=== PATIENT | female | born 1985 | race Caucasian/White ===

== ENCOUNTER 2023-06-03 09:07 | Emergency (ER) | payer OTHER, SELFPAY ==
[2023-06-03 09:10] VITALS: BP 109/71; PULSE 84; RESP 16; TEMP 37.9; O2SAT 100
--- NOTE | 2023-06-03 09:46 | ED_ITS ---
HPI - General Adult General Chief complaint: Chest Pain Stated complaint: chest pain/abdominal pain Time Seen by Provider: 06/03/23 09:14 History of Present Illness HPI narrative: This 38-year-old female comes in reporting some chest discomfort that occurred upon awakening this morning. She states that she is about 5 weeks . She called into the nurse line and was told to come into the ER because she might be having a heart attack. She is very anxious upon hearing this. She states that she has had a miscarriage in the past and is concerned about her . She arrives with normal vital signs but does have borderline fever with a temperature 100.3? F. she does not report any symptoms suspicious for infection. She states that she is developing some mild abdominal pain but does not have cramping or signs of miscarriage. She states that she feels some lightheadedness but did not have any nausea, vomiting, shortness of breath, or diaphoresis. She does not report any exercise intolerance. She does not have any cardiac risk factors except for her father has some kind of heart condition. Related Data Home Medications Medication Instructions Recorded Confirmed vit no.95-ferrous 1 tab PO DAILY 06/03/23 06/03/23 fumarate 28 mg-folic acid 800 mcg tablet ( Multivitamins) Allergies Allergy/AdvReac Type Severity Reaction Status Date / Time amoxicillin Allergy Severe stop Verified 06/03/23 09:15 breathing contrast dye Allergy Severe stop Uncoded 06/03/23 09:15 breathing Review of Systems Status of ROS: Reports: 10 or more systems reviewed and unremarkable except as noted in History and below Narrative: Constitutional: No fevers, no weight gain or loss. Eyes: No discharge. No vision changes. HENT: No congestion, no sore throat, no ear pain. Cardiovascular: No palpitations. Respiratory: No shortness of breath, no wheezes, no cough. Gastrointestinal: No abdominal pain, no vomiting, no diarrhea. Genitourinary: No dysuria, no hematuria. Musculoskeletal: Normal range of motion. Skin: No rashes, no pruritis. Neurological: No dizziness, weakness, sensory change, speech change. Endo/Heme/Allergies: No bruising or bleeding. No polydipsia. Pysch: no suicidality, no insomnia. She has lots of anxiety regarding her symptoms. All other systems reviewed and are negative. PFSH PFSH Social History Smoking Status: Never smoker How often do you have a drink containing alcohol: never How often do you have six or more drinks on one occasion: Never AUDIT-C Alcohol total score: 0 Non-prescribed substance use: denies use Exam Narrative: Exam Narrative: Constitutional: Well-developed, well-nourished, no acute distress. HEENT: Normocephalic, atraumatic. Neck: Normal range of motion. Nontender. Supple. Heart: Regular. No murmurs. Normal rate. Intact distal pulses. Lungs: Clear to auscultation. No chest discomfort. No wheezes, rhonchi, or rales. Abdomen: Normal bowel sounds. Mild diffuse tenderness in the lower abdomen. No rebound tenderness. Genitalia: Deferred. Back: No midline tenderness. Normal range of motion. Extremities: Normal range of motion. No injury. Skin: Intact. No rash. Warm. No erythema or pallor. Neurologic: No altered sensation. No weakness. Alert and oriented. Psychiatric: No suicidality. No depression. No insomnia. Nursing notes and vitals signs are reviewed. Const: Vital Signs, click to edit/add: Vital Signs - 24 hr 06/03/23 09:10 06/03/23 11:19 Temperature 100.3 F H Pulse Rate [Pulse Oximeter] 84 72 Respiratory Rate 16 16 Blood Pressure [Ri ght Upper Arm] 109/71 102/58 L Pulse Oximetry 100 98 Oxygen Delivery Me thod Room Air Room Air Course Vital Signs Vital signs: Initial Vital Signs Temperature 100.3 F H 06/03/23 09:10 Temperature Source Temporal Artery Scan 06/03/23 09:10 Pulse Rate 84 06/03/23 09:10 Respiratory Rate 16 06/03/23 09:10 Blood Pressure 109/71 06/03/23 09:10 Blood Pressure Mean 83 06/03/23 09:10 Blood Pressure Position Sitting 06/03/23 09:10 Pulse Oximetry 100 06/03/23 09:10 Oxygen Delivery Method Room Air 06/03/23 09:10 Vital Signs Temperature 100.3 F H 06/03/23 09:10 Pulse Rate 84 06/03/23 09:10 Respiratory Rate 16 06/03/23 09:10 Blood Pressure 109/71 06/03/23 09:10 Pulse Oximetry 100 06/03/23 09:10 Oxygen Delivery Method Room Air 06/03/23 09:10 Temperature 100.3 F H 06/03/23 09:10 Pulse Rate 72 06/03/23 11:19 Respiratory Rate 16 06/03/23 11:19 Blood Pressure 102/58 L 06/03/23 11:19 Pulse Oximetry 98 06/03/23 11:19 Oxygen Delivery Method Room Air 06/03/23 11:19 Medical Decision Making MDM Narrative Medical decision making narrative: This patient comes in with lots of anxiety regarding some chest discomfort and fear that she may be having something wrong with the that is at about 5 weeks gestation. She reports lots of anxiety because she does not have any children and did have a prior that ended in miscarriage. She arrives here with normal vital signs but does show a temperature at 100.3? F. She is not describing any symptoms of infection. Her white count returns normal today and urinalysis shows no sign of infection. EKG and troponin returned with reassuring findings. I also used bedside ultrasound to look at her uterus and her heart. Her is early in gestation and a transabdominal view of her uterus does not show any findings as expected. Cardiac views are all reassuring. Her beta hCG quantitative value he is proper for her current gestational age at 5561. This is good news to the patient. She has a follow-up appointment with an OB physician in 5 days and will have ultrasound done at that time. Lab Data Labs: Lab Results 06/03/23 06/03/23 06/03/23 Range/Units 09:45 09:57 10:35 WBC 8.42 (4.50-11.00) K/uL RBC 4.80 (4.00-5.20) m/uL Hgb 14.4 (12.0-16.0) gm/dL Hct 43.3 (33.0-51.0) % MCV 90 (80-100) fL MCH 30 (26-34) pg MCHC 33 (32-36) gm/dL RDW Coeff of Paresh 12.4 (11.5-15.5) % Plt Count 220 (140-440) K/uL Neut % (Auto) 75.6 H (42.0-72.0) % Lymph % (Auto) 14.7 L (20-44) % Dukes % (Auto) 8.9 (0.0-11.0) % Eos % (Auto) 0.4 (0.0-7.0) % Baso % (Auto) 0.2 (0.0-3.0) % Neut # (Auto) 6.40 (1.7-7.0) K/uL Lymph # (Auto) 1.20 (0.90-2.90) K/uL Dukes # (Auto) 0.70 (0.00-0.90) K/UL Eos # (Auto) 0.03 (0.00-0.50) K/uL Baso # (Auto) 0.02 (0.00-0.30) K/uL Abs Immat Gran (auto) 0.02 (0.00-0.30) K/uL Imm/Tot Granulo (auto) 0.2 % HCG, Quant 5561.20 mIU/mL Urine Color Dark yellow (Yellow) Urine Appearance Slightly Cloudy A (Clear) Urine pH 6.0 (5.0-8.5) Ur Specific [place] >= 1.030 (1.000-1.030) Urine Protein Negative (Negative) Urine Glucose (UA) Negative (Negative) Urine Ketones Negative (Negative) Urine Blood Negative (Negative) Urine Nitrite Negative (Negative) Urine Bilirubin Negative (Negative) Urine Urobilinogen 0.2 (0.2-1.0) Ur Leukocyte Esterase Negative (Negative) Urine RBC 0-2 (0-2) Urine WBC 0-2 (0-5) Ur Squamous Epith Cells Few (None-Few) Amorphous Sediment Few A (None) Urine Bacteria Moderate A (None) Urine Mucus Moderate A (None) POC Troponin I 0.00 L (0.01-0.04) ng/ml ECG Data Attestation: I personally reviewed and interpreted this ECG as follows: Interpretation: Normal sinus rhythm. Rate is 76 beats per minute. There are no ST or T-wave abnormalities. Discharge Plan Discharge Clinical Impression: Atypical chest pain Patient Disposition: Home, Self-Care Condition: Stable Additional Instructions: Continue current plans. Follow up with MD as scheduled. Return if worsening. Prescriptions: No Action PNV cmb#95-ferrous fumarate-FA [ Multivitamins] 28 mg iron- 800 mcg tablet 1 tab PO DAILY Follow Up/Referrals: Provider,Not a Local [Primary Care Provider] - Stand Alone [facility] Inst[facility] Procedures Ultrasound Cardiac exam #1: Anatomical areas examined: parasternal long and parasternal short Indications: chest pain Exam type: limited transthoracic echocardiogram Impression: negative exam
[2023-06-03 10:10] LABS: Basophils Absolute Auto 0.02 K/uL (0.00-0.30); Basophils Percent Auto 0.2 % (0.0-3.0); Eosinophils Absolute Auto 0.03 K/uL (0.00-0.50); Eosinophils Percent Auto 0.4 % (0.0-7.0); Hematocrit 43.3 % (33.0-51.0); Hemoglobin* 14.4 gm/dL (12.0-16.0); Immature Granulocytes Abs Auto 0.02 K/uL (0.00-0.30); Immature Granulocytes Pct Auto 0.2 %; Lymphocytes Percent Auto 14.7 % (20-44); Mean Corpuscular HGB Conc 33 gm/dL (32-36); Mean Corpuscular Hemoglobin 30 pg (26-34); Mean Corpuscular Volume 90 fL (80-100); Monocytes Percent Auto 8.9 % (0.0-11.0); Neutrophils Percent Auto 75.6 % (42.0-72.0); Platelet Count* 220 K/uL (140-440); RDW Coefficient of Variation % 12.4 % (11.5-15.5); White Blood Count* 8.42 K/uL (4.50-11.00)
[2023-06-03 10:13] LABS: Slide Review Reflex No
[2023-06-03 10:42] LABS: Appearance Urine Slightly Cloudy (Clear); Bilirubin Urine Negative (Negative); Blood Urine Negative (Negative); Color Urine Dark yellow (Yellow); Glucose Urine Negative (Negative); Ketones Urine Negative (Negative); Leukocyte Esterase Urine Negative (Negative); Nitrite Urine Negative (Negative); Protein Urine Negative (Negative); Specific Gravity Urine >= 1.030 (1.000-1.030); Urobilinogen Urine 0.2 (0.2-1.0)
[2023-06-03 10:54] LABS: Amorphous Sediment Urine Few; Bacteria Urine Moderate; Mucus Urine Moderate; RBC Urine 0-2 (0-2); Squamous Epithelial Cell Urine Few (None-Few); WBC Urine 0-2 (0-5)
[2023-06-03 11:19] VITALS: BP 102/58; PULSE 72; RESP 16; O2SAT 98
== END 2023-06-03 11:53 | disposition home or self-care (01) ==
PROVIDERS: Emergency Provider Emergency Medicine Emergency Medical Services
DX: R07.89 Other chest pain (principal)
CPT/HCPCS: 36415; 76604; 76705; 81001; 84484; 84702; 85025; 87086; 93005; 93308; 99284; 99285

== ENCOUNTER 2023-09-07 18:25 | Emergency (ER) | payer OTHER, SELFPAY ==
[2023-09-07 18:37] VITALS: BP 103/66; PULSE 76; RESP 16; TEMP 36.4; O2SAT 98
--- NOTE | 2023-09-07 19:37 | ED_ITS ---
HPI - General Adult General Chief complaint: Nausea/Vomiting Stated complaint: vomiting, 18 wks preg Time Seen by Provider: 09/07/23 19:08 Source: patient Mode of arrival: ambulatory Limitations: no limitations History of Present Illness HPI narrative: 38-year-old female 2 para 0 loss of previous due to trisomy at 8 weeks gestation presents to the emergency department for evaluation of persistent nausea and vomiting in as well as a ?taste of glue in her mouth? patient states that she has been persistently vomiting and then ?has not been able to eat anything? but then tells me that she held down a bowl of cereal without difficulty this morning and had a tortilla with 3 fried beans from [employer] around lunchtime. As she was eating the tortilla, she noticed a scratchy irritated sensation around her tonsil and wondered if there was something dangerous in the food. She tells me that she has lost 7 lb in I last week. I do not have any records to confirm this as she sees a provider his father through a different health system for her OB care. The rationale for coming to our ED instead is unclear today. There is no trauma or injury, she is not running any fever. She reports that she is holding down water without difficulty and is urinating at least 4 times a day. He has read the baby's not growing because she is not gaining weight. She was recently started on fluox etine for anxiety by her Ob provider in the last couple of weeks. She also has been prescribed multiple antiemetics including promethazine, Zofran, Reglan. She had been feeling constipated and has been prescribed MiraLax and Colace which she has been using. She had a large bowel movement this morning and actually felt quite a bit better afterwards but then felt nauseated again after eating a tortilla and we fried beans. There is no bloody stool, the vomiting sounds non bilious and like stomach acid. She has been taking famotidine for the past month or 2 due to the reflux and does not feel like this is working sufficiently. She states that she does not consistently feel the baby move but she is only 18 weeks gestation and this is not terribly surprising. No vaginal bleeding, no trauma or injury, no leakage of fluid. No fevers, dysuria or other red flags. Past medical history notable for amoxicillin allergy, current medications are Prozac, famotidine, Zofran, promethazine, Reglan. Ob provider through different health system. Records unavailable. Denies any other long-term health problems. ROS notable for the generalized and GI symptoms as described above. Otherwise denies times 12 systems today. Related Data Home Medications ?Medication ?Instructions ?Recorded ?Confirmed vit no.95-ferrous 1 tab PO DAILY 06/03/23 09/07/23 fumarate 28 mg-folic acid 800 mcg tablet ( Multivitamins) aspirin 81 mg chewable tablet 81 mg PO DAILY 09/07/23 09/07/23 (Aspirin Childrens) docusate sodium 100 mg capsule 100 mg PO QHS 09/07/23 09/07/23 (Colace) famotidine 10 mg tablet 10 mg PO BID 09/07/23 09/07/23 famotidine 20 mg tablet 20 mg PO BID 09/07/23 09/07/23 fluoxetine 20 mg capsule 20 mg PO DAILY 09/07/23 09/07/23 glycerin (adult) 1 supp HI DAILY PRN constipation 09/07/23 09/07/23 metoclopramide HCl 10 mg tablet 10 mg PO QID 09/07/23 09/07/23 ondansetron 4 mg disintegrating 4 mg PO Q8H PRN 09/07/23 09/07/23 tablet polyethylene glycol 3350 17 17 g PO DAILY 09/07/23 09/07/23 gram/dose oral powder (Miralax) promethazine 12.5 mg tablet 12.5 - 25 mg PO Q6H PRN nausea 09/07/23 09/07/23 Allergies Allergy/AdvReac Type Severity Reaction Status Date / Time amoxicillin Allergy Severe stop Verified 06/03/23 09:15 breathing contrast dye Allergy Severe stop Uncoded 06/03/23 09:15 breathing PFSH PFSH Social History Smoking Status: Never smoker How often do you have a drink containing alcohol: never How often do you have six or more drinks on one occasion: Never AUDIT-C Alcohol total score: 0 Non-prescribed substance use: denies use Exam Const: Vital Signs, click to edit/add: Vital Signs - 24 hr 09/07/23 18:37 09/07/23 21:36 Temperature 97.6 F Pulse Rate [Pulse Oximeter] 76 66 Respiratory Rate 16 16 Blood Pressure [Ri ght Upper Arm] 103/66 102/58 L Pulse Oximetry 98 100 Oxygen Delivery Me thod Room Air Room Air Documenting provider has reviewed patient's vital signs: yes Common normals: no apparent distress General appearance: cooperative, comfortable and well kempt HENMT: Common normals: normocephalic Head and scalp: normocephalic Other: Mild cobblestoning pattern the posterior pharynx but no redness or swelling. No signs of laceration or abrasion. Eye: General eye: normal appearance of both eyes Neck & C-Spine: General: normal visual inspection Resp: Common normals: normal respiratory effort, no use of accessory muscles and clear to auscultation bilaterally Effort & inspection: able to speak in complete sentences Auscultation: clear to auscultation bilaterally Cardio: Common normals: regular rate, regular rhythm, S1 normal heart sound, S2 normal heart sound and no murmurs Rate: regular rate Rhythm: regular rhythm Heart sounds: S1 normal and S2 normal GI: Common normals: Normal to inspection, nondistended, normoactive bowel sounds present, soft to palpation, non-tender, no hepatosplenomegaly and no masses Palpation: soft and no hepatosplenomegaly Other: Fundal height consistent with about a 20 week gestation. Extremity: Common normals: normal capillary refill and no pedal edema Psych: Appearance: well kempt Activity/motor behavior: appropriate eye contact Insight: insight good Judgement: judgment good Skin: Common normals: no rashes or lesions noted General skin exam: no rashes or lesions noted Course Course ED Course: Discussed findings with patient. It sounds like she is he able to hold down some liquids and food, just not enough to really sustain herself and the well. There was no hypotension, tachycardia or syncopal type symptoms. Reports that her labs have been normal through this . I recommend a urinalysis to look for degree of ketosis. Update: Does have 4+ ketones and high specific gravity. Will give 1 L of lactated Ringer's, 4 of Zofran and 20 of omeprazole, then re-evaluate. Reevaluation(s) Reevaluation #1: I was tied up with another patient when patient completed her fluids. Nursing team reporting that she was feeling somewhat better and had been tolerating liquids here in the ED with no difficulty she has not had any vomiting here for us. She will be discharged with plan to continue current medications and close follow-up with primary care OB team and keeping her scheduled appointment for the week after next. Vital Signs Vital signs: Initial Vital Signs Temperature 97.6 F 09/07/23 18:37 Temperature Source Temporal Artery Scan 09/07/23 18:37 Pulse Rate 76 09/07/23 18:37 Respiratory Rate 16 09/07/23 18:37 Blood Pressure 103/66 09/07/23 18:37 Blood Pressure Mean 78 09/07/23 18:37 Blood Pressure Position Sitting 09/07/23 18:37 Pulse Oximetry 98 09/07/23 18:37 Oxygen Delivery Method Room Air 09/07/23 18:37 Vital Signs Temperature 97.6 F 09/07/23 18:37 Pulse Rate 76 09/07/23 18:37 Respiratory Rate 16 09/07/23 18:37 Blood Pressure 103/66 09/07/23 18:37 Pulse Oximetry 98 09/07/23 18:37 Oxygen Delivery Method Room Air 09/07/23 18:37 Temperature 97.6 F 09/07/23 18:37 Pulse Rate 66 09/07/23 21:36 Respiratory Rate 16 09/07/23 21:36 Blood Pressure 102/58 L 09/07/23 21:36 Pulse Oximetry 100 09/07/23 21:36 Oxygen Delivery Method Room Air 09/07/23 21:36 Medications Administered Medications: Discontinued Medications Generic Name Dose Route Start Last Admin Trade Name Freq PRN Reason Stop Dose Admin Lactated Ringer's 1,000 mls @ 1,000 mls/hr 09/07/23 20:13 09/07/23 20:32 Lactated Ringers 1000 Ml IV 09/07/23 21:12 1,000 mls/hr .Q1H ONE Administration Omeprazole 20 mg 09/07/23 20:13 09/07/23 20:32 Omeprazole [address] PO 09/07/23 20:14 20 mg ONCE ONE Administration Ondansetron HCl 4 mg 09/07/23 20:13 09/07/23 20:32 Ondansetron 2 Mg/Ml Inj IVP 09/07/23 20:14 4 mg ONCE ONE Administration Medical Decision Making Lab Data Lab results reviewed: Yes I reviewed the patient's lab results Lab results narrative: High specific gravity and ketones present, will give IV fluids. Labs: Lab Results 09/07/23 Range/Units 19:30 Urine Color Yellow (Yellow) Urine Appearance Slightly Cloudy A (Clear) Urine pH 5.5 (5.0-8.5) Ur Specific [place] >= 1.030 (1.000-1.030) Urine Protein Negative (Negative) Urine Glucose (UA) Negative (Negative) Urine Ketones 4+ A (Negative) Urine Blood Negative (Negative) Urine Nitrite Negative (Negative) Urine Bilirubin 1+ A (Negative) Urine Urobilinogen 0.2 (0.2-1.0) Ur Leukocyte Esterase Negative (Negative) Urine RBC 0-2 (0-2) Urine WBC 0-2 (0-5) Ur Squamous Epith Cells Few (None-Few) Calcium Oxalate Crystal Few A (None) Urine Bacteria Few A (None) Discharge Plan Discharge Clinical Impression: Vomiting affecting , Urine ketones Patient Disposition: Home w/ Parent or Adult Condition: Improved Instructions: Nausea and Vomiting in (ED) Additional Instructions: As we discussed, unfortunately, some pregnancies really do have this degree of persistent nausea and vomiting. Most of the time, the baby grows well. I am hoping that your symptoms do improve as the continues. It is not unusual that patient start feeling quite a bit better by the 22 week jossue. Your provider has chosen an excellent and very safe combination medications for you. Management of the constipation is imperative. Continue the MiraLax and Colace. As we discussed, many find that the MiraLax does dissolve better in warm beverages, you may try this. Using it in your morning coffee may be most effective. Continue on the Colace as well, do not abruptly stop either of them but titrate down to half dose or maybe the MiraLax every other day if her stools become very loose. The the Prozac sounds like a good choice for you. I am hoping that better management of your anxiety is going to 1 healthy balanced things out as well. This may worsen your reflux and constipation so stay on the medications that are prescribed. At this time, the be seen famotidine seems like the best choice for your reflux and is definitely the safest long-term. I would like for you to continue taking this as prescribed. If her reflux symptoms are not improving within another week, discussed switching to omeprazole with your provider. Keep your scheduled appointment in about a week and a half for your ultrasound and no provider follow-up. We gave you fluids today hoping that this would help you feel better and allow you to catch up on nutrition and fluids and ultimately help you get over this tough spell. Remember that you should be in close communication with your Ob provider regarding long-term follow-up of these types of things. Emergency department should be used if you are having severe dizziness, are unable to hold down any liquids whatsoever for over 24 hours, have high fevers, brisk vaginal bleeding or other worrisome findings. Activity Level: Activity as Tolerated Discharge Diet: Regular Prescriptions: No Action famotidine 10 mg tablet 10 mg PO BID promethazine 12.5 mg tablet 12.5 - 25 mg PO Q6H PRN (Reason: nausea) famotidine 20 mg tablet 20 mg PO BID ondansetron 4 mg tablet,disintegrating 4 mg PO Q8H PRN fluoxetine 20 mg capsule 20 mg PO DAILY metoclopramide HCl 10 mg tablet 10 mg PO QID glycerin (adult) Suppository 1 supp HI DAILY PRN (Reason: constipation) aspirin [Aspirin Childrens] 81 mg tablet,chewable 81 mg PO DAILY polyethylene glycol 3350 [Miralax] 17 gram/dose powder 17 g PO DAILY docusate sodium [Colace] 100 mg capsule 100 mg PO QHS PNV cmb#95-ferrous fumarate-FA [ Multivitamins] 28 mg iron- 800 mcg tablet 1 tab PO DAILY Follow Up/Referrals: Provider,Not a Local [Primary Care Provider] - Stand Alone Forms: [employer] Info Instructions
[2023-09-07 19:50] LABS: Bilirubin Urine 1+ (Negative); Blood Urine Negative (Negative); Glucose Urine Negative (Negative); Ketones Urine 4+ (Negative); Leukocyte Esterase Urine Negative (Negative); Nitrite Urine Negative (Negative); Protein Urine Negative (Negative); Specific Gravity Urine >= 1.030 (1.000-1.030); Urobilinogen Urine 0.2 (0.2-1.0); pH Urine 5.5 (5.0-8.5)
[2023-09-07 20:11] LABS: Appearance Urine Slightly Cloudy (Clear); Bacteria Urine Few; Calcium Oxalate Crystals Urine Few; Color Urine Yellow (Yellow); RBC Urine 0-2 (0-2); Squamous Epithelial Cell Urine Few (None-Few); WBC Urine 0-2 (0-5)
[2023-09-07] MEDS: LACTATED RINGERS 1000 ML 1,000 ML IV (20:32)
[2023-09-07] MEDS: ONDANSETRON 2 MG/ML inj 4 MG IVP (20:32)
[2023-09-07] MEDS: OMEPRAZOLE 20 MG CAPSULE DR PO (20:32)
[2023-09-07 21:36] VITALS: BP 102/58; PULSE 66; RESP 16; O2SAT 100
== END 2023-09-07 21:37 | disposition home or self-care (01) ==
PROVIDERS: Emergency Provider Family Medicine
DX: R11.2 Nausea with vomiting, unspecified (principal); R82.4 Acetonuria; Z3A.18 18 weeks gestation of pregnancy
CPT/HCPCS: 81001; 81003; 87086; 96374; 99283; A9270; J2405; J7120

== ENCOUNTER 2023-09-08 21:50 | Emergency (ER) | payer OTHER, SELFPAY ==
[2023-09-08 21:54] VITALS: BP 104/67; PULSE 71; RESP 16; TEMP 36.4; O2SAT 99; BMI 29.2
--- NOTE | 2023-09-08 23:07 | ED.ABDPAIN ---
HPI - Abdominal Pain General Date Seen: 09/08/23 Chief Complaint: Abdominal Pain Stated Complaint: 18wks , left abdominal pain, cant pass gas Source: patient Mode of arrival: ambulatory Limitations: no limitations History of Present Illness HPI narrative: Patient is a 38-year-old at 18 weeks gestation who comes in with some lower abdominal pain, a sensation that she cannot pass gas, and leakage of some loose stool. She was just seen here yesterday and stated that she had a large bowel movement yesterday. The doctor's note comments that she went to [employer] and ate tortillas and refried beans. Today she feels gassy but has been unable to pass this gas. There has been no vomiting. She had constipation issues requiring enemas about one month ago. She is currently taking Colace and MiraLax. She called the nurse line at [facility] and as always was told to come to the emergency department. Related Data Home Medications ?Medication ?Instructions ?Recorded ?Confirmed vit no.95-ferrous 1 tab PO DAILY 06/03/23 09/08/23 fumarate 28 mg-folic acid 800 mcg tablet ( Multivitamins) aspirin 81 mg chewable tablet 81 mg PO DAILY 09/07/23 09/08/23 (Aspirin Childrens) docusate sodium 100 mg capsule 100 mg PO QHS 09/07/23 09/08/23 (Colace) famotidine 10 mg tablet 10 mg PO BID 09/07/23 09/08/23 famotidine 20 mg tablet 20 mg PO BID 09/07/23 09/07/23 fluoxetine 20 mg capsule 20 mg PO DAILY 09/07/23 09/08/23 glycerin (adult) 1 supp GA DAILY PRN constipation 09/07/23 09/07/23 metoclopramide HCl 10 mg tablet 10 mg PO QID 09/07/23 09/08/23 ondansetron 4 mg disintegrating 4 mg PO Q8H PRN 09/07/23 09/07/23 tablet polyethylene glycol 3350 17 17 g PO DAILY 09/07/23 09/08/23 gram/dose oral powder (Miralax) promethazine 12.5 mg tablet 12.5 - 25 mg PO Q6H PRN nausea 09/07/23 09/08/23 Allergies Allergy/AdvReac Type Severity Reaction Status Date / Time amoxicillin Allergy Severe stop Verified 06/03/23 09:15 breathing contrast dye Allergy Severe stop Uncoded 06/03/23 09:15 breathing Review of Systems Narrative Review of systems is outlined above otherwise noted to be negative. [facility] Social History Smoking Status: Never smoker How often do you have a drink containing alcohol: never How often do you have six or more drinks on one occasion: Never AUDIT-C Alcohol total score: 0 Non-prescribed substance use: denies use Exam Narrative: Exam Narrative: Vitals noted. HEENT: Conjunctiva clear. Neck is supple without adenopathy. Lungs: Clear to auscultation in all jauregui. No wheezes, rales, rhonchi. Heart: Regular rate and rhythm without murmur. Abdomen: Soft and nontender. No guarding, rigidity, rebound. Bowel sounds are normal. No palpable masses. Patient was actively passing gas while I was in the exam room. Extremities: No cyanosis or edema. Good distal pulses. Skin: No abnormalities noted of the exposed skin. Neurologic: Awake, alert, fully oriented. Neurologic exam is nonfocal. Const: Vital Signs, click to edit/add: Vital Signs - 24 hr 09/08/23 21:54 Temperature 97.6 F Pulse Rate [Pulse Oximeter] 71 Respiratory Rate 16 Blood Pressure [Ri ght Upper Arm] 104/67 Pulse Oximetry 99 Oxygen Delivery Me thod Room Air Course Course ED Course: Patient is seen and examined. There is no indication for any diagnostic testing. I had a good discussion with her and her boyfriend regarding normal bowel function, changes associated with , safe medications to manage her bowel issues, dietary interventions. I laid out a good bowel routine for her to follow. Vital Signs Vital signs: Initial Vital Signs Temperature 97.6 F 09/08/23 21:54 Temperature Source Temporal Artery Scan 09/08/23 21:54 Pulse Rate 71 09/08/23 21:54 Respiratory Rate 16 09/08/23 21:54 Blood Pressure 104/67 09/08/23 21:54 Blood Pressure Mean 79 09/08/23 21:54 Blood Pressure Position Sitting 09/08/23 21:54 Pulse Oximetry 99 09/08/23 21:54 Oxygen Delivery Method Room Air 09/08/23 21:54 Vital Signs Temperature 97.6 F 09/08/23 21:54 Pulse Rate 71 09/08/23 21:54 Respiratory Rate 16 09/08/23 21:54 Blood Pressure 104/67 09/08/23 21:54 Pulse Oximetry 99 09/08/23 21:54 Oxygen Delivery Method Room Air 09/08/23 21:54 Temperature 97.6 F 09/08/23 21:54 Pulse Rate 71 09/08/23 21:54 Respiratory Rate 16 09/08/23 21:54 Blood Pressure 104/67 09/08/23 21:54 Pulse Oximetry 99 09/08/23 21:54 Oxygen Delivery Method Room Air 09/08/23 21:54 Discharge Plan Discharge Clinical Impression: Constipation, Abdominal pain Patient Disposition: Home, Self-Care Condition: Stable Additional Instructions: Use a Fleet's enema or suppository to get cleaned out. Continue Colace twice daily, MiraLax daily, started Benefiber 1 tsp twice daily. Drink lots of fluids. Avoid gas producing foods like [employer], raw vegetables, etc. you can use any product containing simethicone such as Gas-X, Mylanta gas, Phazyme. Follow-up with your PCP if symptoms are not improving. Prescriptions: No Action famotidine 10 mg tablet 10 mg PO BID promethazine 12.5 mg tablet 12.5 - 25 mg PO Q6H PRN (Reason: nausea) famotidine 20 mg tablet 20 mg PO BID ondansetron 4 mg tablet,disintegrating 4 mg PO Q8H PRN fluoxetine 20 mg capsule 20 mg PO DAILY metoclopramide HCl 10 mg tablet 10 mg PO QID glycerin (adult) Suppository 1 supp GA DAILY PRN (Reason: constipation) aspirin [Aspirin Childrens] 81 mg tablet,chewable 81 mg PO DAILY polyethylene glycol 3350 [Miralax] 17 gram/dose powder 17 g PO DAILY docusate sodium [Colace] 100 mg capsule 100 mg PO QHS PNV cmb#95-ferrous fumarate-FA [ Multivitamins] 28 mg iron- 800 mcg tablet 1 tab PO DAILY Follow Up/Referrals: Provider,Not a Local [Primary Care Provider] - Stand Alone Forms: [facility] Instructions
--- OUTSIDE RECORDS SUMMARY | 2023-09-08 23:08 | XMS_ITS | Clinical Summary ---
Author Organization [place] Address [address] [facility] [place] [address] Care Team Providers Care Offshore [employer] Technician Name Role Phone Clinic, [facility] Primary Care Pro vider Mary Kate Herrera PA-C Unavailable Randal Joe MD Unavailable [phone] Allergies Active Allergy Reactions Criticality Noted Date Comments Amoxicillin Shortness Of Breath High 06/20/2015 Iodinated Contrast Media Anaphylaxis High 01/26/2021 Medications Medication Sig Dispensed Refills Start Date End Date Status VITAMIN D3 50 MCG (1999) tablet Take 1 tablet by mouth daily Active hydrOXYzine (ATARAX) 25 MG tablet Take 25 mg by mouth nightly as needed 3 Active Vit-Fe Fumarate-FA ( PLUS) 27-1 MG TABS Take 1 tablet by mouth daily Active promethazine (PHENERGAN) 25 MG tablet Take 25 mg by mouth every 6 hours as needed for nausea Active famotidine (PEPCID) 20 MG tablet Take 1 tablet (20 mg) by mouth 2 times daily for 10 days 20 tablet 4 09/11/19 24 Active glycerin (LAXATIVE) 1.[address] 1 suppository rectally daily as needed (constipation) 12 suppository 4 Active famotidine (PEPCID) 10 MG tablet Take 1 tablet (10 mg) by mouth 2 times daily for 30 days 60 tablet 4 08/17/19 24 nitroFURantoin macrocrystal-mon ohydrate (MACROBID) 100 MG capsule Take 1 capsule (100 mg) by mouth 2 times daily for 7 days 14 capsule 4 08/29/19 24 sucralfate (CARAFATE) 1 GM tablet Take 1 tablet (1 g) by mouth 4 times daily for 5 days 20 tablet 4 09/04/19 24 magnesium citrate 1.745 GM/30ML solution Take 296 mLs by mouth once for 1 dose 296 mL 4 09/01/19 24 [address] oil enema Place 1 enema rectally once for 1 dose 133 mL 4 09/01/19 24 Active Problems Problem Noted Date Diagnosed Date Encounter for triage in patient 024 Prolonged Q-T interval on ECG 05/09/2021 Nausea, vomiting, and diarrhea 05/09/2021 Chronic migraine without aur a without status migrainosus, not intractable 07/25/2015 Seronegative arthritis 05/17/2014 Vitamin D deficiency 05/17/2014 Overview: Problem list name updated by automated process. Provider to review Insomnia 05/17/2014 Anxiety 07/17/2012 Chronic joint pain 07/17/2012 Family history of MS (multiple sclerosis) 2011 Mild major depression 06/03/2010 CARDIOVASCULAR SCREENING; LDL GOAL LESS THAN 160 12/07/2009 Morbid obesity 08/20/2009 Smoker 05/07/2009 Weight gain 12/25/2008 Contraceptive management 03/24/2006 Overview: Problem list name updated by automated process. Provider to review Other anxiety states Estimated Date of Delivery Comme nts Yes 02/04/2024 Based on Patient Reported Resolved Problems Problem Noted Date Diagnosed Date Resolved Date Health Retirement 09/22/2010 07/25/2023 Overview: x DX V65.8 REPLACED WITH 61858 HEALTH INTERMEDIATE (05/15/2012) 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 7 Supervision of normal first 08/06/2005 01/24/2006 Contraception 09/06/2007 Encounters Date Type Department Care Team Description 09/01/2023 10:08 PM CDT - 09/01/2023 11:48 PM CDT Emergency [facility] Emergency Dept [address] [place] [address] Tricia Gregg DO Constipation, unspecified constipation type; Abdominal pain, unspecified abdominal location Discharge Disposition: Home or Self Care 09/01/2023 8:42 PM CDT - 09/01/2023 9:37 PM CDT Hospital Encounter [facility] [address] [place] [address] Annika Kirkland MD Discharge Disposition: Home or Self Care 09/01/2023 Travel 08/30/2023 4:10 PM CDT - 08/30/2023 7:45 PM CDT Emergency [facility] Emergency Dept [address] [place] [address] Phyllis Walden, PAJohnC Abdominal pain during in second trimester; Hemorrhagic cyst of left ovary Discharge Disposition: Home or Self Care 08/30/2023 Travel 08/28/2023 4:36 AM CDT - 08/28/2023 6:35 AM CDT Emergency [facility] Emergency Dept [address] [place] [address] Tricia Gregg DO Goodman, Brian Samuel, MD Abdominal pain during , antepartum Discharge Disposition: Home or Self Care 08/28/2023 Travel 08/22/2023 11:10 AM CDT - 08/22/2023 1:57 PM CDT Emergency [facility] Emergency Dept [address] [place] [address] Mai Headley, PAJohnC Constipation during in second trimester; UTI in , second trimester Discharge Disposition: Home or Self Care 08/22/2023 Travel 07/18/2023 5:21 AM CDT - 07/18/2023 9:08 AM CDT Emergency [facility] Emergency Dept [address] [place] [address] Kendall Omalley MD Nausea and vomiting during Discharge Disposition: Home or Self Care 07/18/2023 Travel 07/16/2023 11:43 PM CDT - 07/17/2023 1:40 AM CDT Emergency [facility] Emergency Dept [address] [place] [address] Louie Allen MD Constipation, unspecified constipation type Discharge Disposition: Home or Self Care 07/08/2023 8:01 PM CDT - 07/08/2023 10:27 PM CDT Emergency [facility] Emergency Dept [address] [place] [address] Shekhar Rashid MD Nausea; Anxiety; First trimester Discharge Disposition: Home or Self Care 07/08/2023 Travel 07/05/2023 2:36 AM CDT - 07/05/2023 5:51 AM CDT Emergency [facility] Emergency Dept [address] [place] [address] Miranda Estrada MD Vaginal bleeding affecting early ; Subchorionic hematoma in first trimester, single or unspecified fetus Discharge Disposition: Home or Self Care 07/05/2023 Travel 06/26/2023 6:36 PM CDT - 06/26/2023 8:49 PM CDT Emergency [facility] Emergency Dept [address] [place] [address] Ivan Grace PA-C Subchorionic hemorrhage of placenta in first trimester Discharge Disposition: Home or Self Care 06/26/2023 Travel 06/11/2023 10:32 AM CDT - 06/11/2023 1:13 PM CDT Emergency [facility] Emergency Dept [address] [place] [address] Brianda Ratliff PA-C First trimester Discharge Disposition: Home or Self Care 06/11/2023 Travel from Last 3 Months Immunizations Name Administration Dates Next Due Influenza Vaccine >6 months,quad, PF 12/21/2019 Mantoux Tuberculin Skin Test 05/14/2009 TDAP Vaccine (Adacel) 02/10/2017,07/11/2006 Twinrix A/B 01/22/2010,07/15/2009,05/14/2009 Family History Medical History Relation Comments Anxiety Disorder Father Depression Father Hypertension Father Other Cancer Father Breast Cancer Maternal Grandmother diagnosed a t age of 70 Diabetes Maternal Grandmother Cancer Maternal Uncle bone Cancer Mother skin cancer Neurologic Disorder Mother MS-diagnosed at age of 40's Breast Cancer Other 1 maternal great-a unt Family History Negative Other 2 neg for SLE, RA Breast Cancer Other 3 Breast Cancer Other 4 Diabetes Paternal Grandmother Heart Disease Sister 2 1-irregular hear t beats Autism Spectrum Disorder No family hx of Bipolar Disorder No family hx of Cancer - colorectal No family hx of Dementia No family hx of Jorge Disease No family hx of Intellectual Disability No family hx of Mental Illness No family hx of Parkinsonism No family hx of Schizophrenia No family hx of Substance Abuse No family hx of Suicide No family hx of Unknown/Adopted No family hx of Relation Status Comments Father Alive Maternal Grandfather Maternal Grandmother Maternal Uncle Mother Alive Other 1 Other 2 Other 3 Other 4 Paternal Grandfather Alive Paternal Grandmother Alive Sister 1 Alive Sister 2 Social History Tobacco Use Types Packs/Day Years Used Date Smoking Tobacco: Former Cigarettes 1 13 0 07/08/1999 - 07/07/2012 Smokeless Tobacco: Never Comments:used to smoke 1 PPD x 11 yr Alcohol Use Standard Drinks/Week Comments Not Currently 0 (1 standard drink = 0.6 oz pur e alcohol) occ PHQ-2 Answer Date Recorded PHQ-2 Score 0 02/06/2021 Adolescent Education Answer Date Record ed Getting School Help Needed Not on file 11/06 Estimated Date of Delivery Comme nts Yes 02/04/2024 Based on Patient Reported Sex and Gender Information Value Date Recorded Sex Assigned at Not on file Gender Identity Not on file Sexual Orientation Not on file Last Filed Vital Signs Vital Sign Reading Time Taken Comments Blood Pressure 111/64 09/01/2023 11:30 PM CDT Pulse 72 09/01/2023 11:30 PM CDT Temperature 36.7 ??C (98.1 ??F) 09/01/2023 9:57 PM CD T Respiratory Rate 18 09/01/2023 9:57 PM CDT Oxygen Saturation 98% 09/01/2023 11:30 PM CDT Inhaled Oxygen Concentration - - Weight 82.6 kg (182 lb) 09/01/2023 9:57 PM CDT Height 165.1 cm (5' 5) 08/30/2023 1:37 PM CDT Body Mass Index 30.29 08/30/2023 1:37 PM CDT Plan of Treatment Health Maintenance Due Date Last Done Comments ADVANCE CARE PLANNING 1985 ANNUAL REVIEW OF HM ORDERS 1985 URINE DRUG SCREEN 1985 LIPID 10/18/2019 10/17/2018, 05/2017, 07/01/2015, Additional history exists PHQ-9 08/06/2021 02/06/2021, 07/10, 08/19/2018, Additional history exists YEARLY PREVENTIVE VISIT 11/03/2021 11/04/19, 12/21/2019, 10/17/2018, Additional history exists COVID-19 Vaccine ( season) 2022 MATERNAL SCREENING DISCUSSION 07/09/2023 INFLUENZA VACCINE (#1) 2023 02/13/2021, 2019 RSV VACCINE ( & 60+) (1 - Risk 1-dose series) 12/10/2023 HPV TEST 03/26/2025 02/10/2017 PAP 03/26/2025 03/26/2022, 0 05/2017, 12/14/2013, Additional history exists GLUCOSE 08/31/2026 09/01/2023, 08/08, 08/28/2023, Additional history exists DTAP/TDAP/TD IMMUNIZATION (3 - Td or Tdap) 02/10/2027 02/10/2017, 07/11/2006 HEPATITIS B IMMUNIZATION Completed 010, 07/15/2009, 05/14/2009 HIV SCREENING Completed 12/10/2010, 08/07, 08/03/2005, Additional history exists HEPATITIS C SCREENING Completed 09/23/2011 , 12/10/2010, 12/10/2010 DEPRESSION ACTION PLAN Completed 8, 02/10/2017, 06/20/2015, Additional history exists HPV IMMUNIZATION Aged Out No longer e ligible based on patient's age to complete this topic IPV IMMUNIZATION Aged Out No longer e ligible based on patient's age to complete this topic MENINGITIS IMMUNIZATION Aged Out No l onger eligible based on patient's age to complete this topic Pneumococcal Vaccine: Pediatrics (0 to 5 Years) and At-Risk Patients (6 to 64 Years) Aged Out No longer eligible based on patient's age to complete this topic RSV MONOCLONAL ANTIBODY Aged Out No l onger eligible based on patient's age to complete this topic Procedures Procedure Name Priority Date/Time Associated Diagnosis Comments ROUTINE UA WITH MICROSCOPIC STAT 09/01/2023 11:05 PM CDT CBC WITH PLATELETS & DIFFERENTIAL STAT 09/01/2023 10:23 PM CDT CBC WITH PLATELETS AND DIFFERENTIAL STAT 09/01/2023 10:23 PM CDT LIPASE STAT 09/01/2023 10:23 PM CDT COMPREHENSIVE METABOLIC PANEL STAT 09/01/2023 10:23 PM CDT MR ABDOMEN W/O CONTRAST STAT 08/30/2023 6:48 PM CDT US OB LIMITED >14 WEEKS WO MEASUREMENT STAT 08/30/2023 5:52 PM CDT ROUTINE UA WITH MICROSCOPIC REFLEX TO CULTURE STAT 08/30/2023 2:16 PM CDT CBC WITH PLATELETS & DIFFERENTIAL STAT 08/30/2023 2:12 PM CDT LIPASE STAT 08/30/2023 2:12 PM CDT EXTRA RED TOP TUBE STAT 08/30/2023 2: 12 PM CDT EXTRA BLUE TOP TUBE STAT 08/30/2023 2 :12 PM CDT CBC WITH PLATELETS AND DIFFERENTIAL STAT 08/30/2023 2:12 PM CDT EXTRA TUBE STAT 08/30/2023 2:12 PM CDT COMPREHENSIVE METABOLIC PANEL STAT 08/30/2023 2:12 PM CDT OCCULT BLOOD STOOL STAT 08/28/2023 5: 19 AM CDT CBC WITH PLATELETS & DIFFERENTIAL STAT 08/28/2023 4:35 AM CDT EXTRA RED TOP TUBE STAT 08/28/2023 4: 35 AM CDT EXTRA BLUE TOP TUBE STAT 08/28/2023 4 :35 AM CDT CBC WITH PLATELETS AND DIFFERENTIAL STAT 08/28/2023 4:35 AM CDT EXTRA TUBE STAT 08/28/2023 4:35 AM CDT COMPREHENSIVE METABOLIC PANEL STAT 08/28/2023 4:35 AM CDT CBC WITH PLATELETS & DIFFERENTIAL STAT 08/22/2023 11:47 AM CDT CBC WITH PLATELETS AND DIFFERENTIAL STAT 08/22/2023 11:47 AM CDT COMPREHENSIVE METABOLIC PANEL STAT 08/22/2023 11:47 AM CDT ROUTINE UA WITH MICROSCOPIC REFLEX TO CULTURE STAT 08/22/2023 11:35 AM CDT LIPASE STAT 07/18/2023 8:06 AM CDT CBC WITH PLATELETS & DIFFERENTIAL STAT 07/18/2023 6:42 AM CDT CBC WITH PLATELETS AND DIFFERENTIAL STAT 07/18/2023 6:42 AM CDT COMPREHENSIVE METABOLIC PANEL STAT 07/18/2023 6:42 AM CDT ROUTINE UA WITH MICROSCOPIC REFLEX TO CULTURE STAT 07/17/2023 12:29 AM CDT CBC WITH PLATELETS & DIFFERENTIAL STAT 07/16/2023 11:34 PM CDT EXTRA RED TOP TUBE STAT 07/16/2023 11 :34 PM CDT EXTRA BLUE TOP TUBE STAT 07/16/2023 1 1:34 PM CDT CBC WITH PLATELETS AND DIFFERENTIAL STAT 07/16/2023 11:34 PM CDT EXTRA TUBE STAT 07/16/2023 11:34 PM CDT LIPASE STAT 07/16/2023 11:34 PM CDT COMPREHENSIVE METABOLIC PANEL STAT 07/16/2023 11:34 PM CDT ROUTINE UA WITH MICROSCOPIC REFLEX TO CULTURE STAT 07/08/2023 8:53 PM CDT CBC WITH PLATELETS & DIFFERENTIAL STAT 07/08/2023 8:50 PM CDT EXTRA RED TOP TUBE STAT 07/08/2023 8: 50 PM CDT EXTRA TUBE STAT 07/08/2023 8:50 PM CDT CBC WITH PLATELETS AND DIFFERENTIAL STAT 07/08/2023 8:50 PM CDT LIPASE STAT 07/08/2023 8:50 PM CDT COMPREHENSIVE METABOLIC PANEL STAT 07/08/2023 8:50 PM CDT US OB < 14 WEEKS SINGLE-TRANSABDOMINAL STAT 07/05/2023 4:40 AM CDT ABO/RH TYPE AND SCREEN STAT 07/05/2023 3:30 AM CDT CBC WITH PLATELETS & DIFFERENTIAL STAT 07/05/2023 3:30 AM CDT TYPE AND SCREEN, ADULT STAT 07/05/2023 3:30 AM CDT CBC WITH PLATELETS AND DIFFERENTIAL STAT 07/05/2023 3:30 AM CDT HCG QUANTITATIVE STAT 07/05/2023 3:30 AM CDT ROUTINE UA WITH MICROSCOPIC REFLEX TO CULTURE STAT 07/05/2023 2:46 AM CDT US OB 1ST TRIMESTER W TRANSVAGINAL W DOPPLER STAT 06/26/2023 8:05 PM CDT EXTRA BLOOD BANK PURPLE TOP TUBE STAT 06/26/2023 6:27 PM CDT EXTRA BLOOD BANK PURPLE TOP TUBE STAT 06/26/2023 6:27 PM CDT EXTRA TUBE STAT 06/26/2023 6:27 PM CDT CBC WITH PLATELETS & DIFFERENTIAL STAT 06/26/2023 6:22 PM CDT EXTRA RED TOP TUBE STAT 06/26/2023 6: 22 PM CDT EXTRA BLUE TOP TUBE STAT 06/26/2023 6 :22 PM CDT CBC WITH PLATELETS AND DIFFERENTIAL STAT 06/26/2023 6:22 PM CDT HCG QUANTITATIVE STAT 06/26/2023 6:22 PM CDT EXTRA TUBE STAT 06/26/2023 6:22 PM CDT BASIC METABOLIC PANEL STAT 06/26/2023 6:22 PM CDT ROUTINE UA WITH MICROSCOPIC REFLEX TO CULTURE STAT 06/26/2023 6:16 PM CDT US OB <14 WEEKS WITH TRANSVAGINAL SINGLE STAT 06/11/2023 11:28 AM CDT CBC WITH PLATELETS & DIFFERENTIAL STAT 06/11/2023 10:50 AM CDT HCG QUANTITATIVE STAT 06/11/2023 10:50 AM CDT CBC WITH PLATELETS AND DIFFERENTIAL STAT 06/11/2023 10:50 AM CDT HCG QUALITATIVE STAT 06/11/2023 10:50 AM CDT BASIC METABOLIC PANEL STAT 06/11/2023 10:50 AM CDT LIPID REFLEX TO DIRECT LDL PANEL Routine 10/17/2018 1:31 PM CDT Routine general medical examination at a [facility] care facility PAP IMAGED THIN LAYER SCREEN Routine 02/10/2017 8:03 AM [employer] MACHINE Screening for malignant neoplasm of cervix HPV HIGH RISK TYPES DNA CERVICAL Routine 02/10/2017 7:52 AM [employer] MACHINE Screening for malignant neoplasm of cervix HEPATITIS C ANTIBODY Routine 09/23/2011 1:54 PM CDT Exposure to communicable disease HIV 1 AND 2 ANTIBODY ([facility]) Routine 12/10/2010 11:34 AM CDT Employee exposure to blood Exposure to hepatitis C from Last 3 Months or Most Recently Relevant to Health Maintenance Results * (ABNORMAL) UA with Microscopic (09/01/2023 11:05 PM CDT) Color Urine Yellow Colorless, Straw, Light Yellow, Yellow 09/01/2023 11:30 PM CDT [facility] Appearance Urine Clear Clear 09/01/19 24 11:30 PM CDT [facility] Glucose Urine Negative Negative mg/dL 09/01/2023 11:30 PM CDT [facility] Bilirubin Urine Negative Negative 11:30 PM CDT [facility] Ketones Urine Trace(A) Negative mg/dL 09/01/2023 11:30 PM CDT LABORATORY Specific [employer] Urine 1.032 1.003 - 1.035 09/01/2023 11:30 PM CDT LABORATORY Blood Urine Large(A) Negative 09/01/2023 11:30 PM CDT LABORATORY pH Urine 6.5 5.0 - 7.0 09/01/2023 11:30 PM CDT LABORATORY Protein Albumin Urine 30(A) Negative mg/dL 09/01/2023 11:30 PM CDT LABORATORY Urobilinogen Urine Normal Normal, 2.0 mg/dL 09/01/2023 11:30 PM CDT LABORATORY Nitrite Urine Negative Negative 09/01/2023 11:30 PM CDT LABORATORY Leukocyte Esterase Urine Negative Negative 09/01/2023 11:30 PM CDT LABORATORY Mucus Urine Present(A) None Seen /LPF 09/01/2023 11:30 PM CDT LABORATORY RBC Urine >182(H) <=2 /HPF 09/01/2023 11:30 PM CDT LABORATORY WBC Urine 2 <=5 /HPF 09/01/2023 11:30 PM CDT LABORATORY Squamous Epithelials Urine <1 <=1 /HPF 09/01/2023 11:30 PM CDT LABORATORY Urine URINE SPECIMEN OBTAINED BY CLEAN CATCH PROCEDURE / Unknown Non-blood Collection / Unknown 09/01/2023 11:05 PM CDT 09/01/2023 11:17 PM CDT Tricia Gregg DO LAB - URINE ORDERA BLES LABORATORY [facility] Acute Care Lab [address] Lab (1st floor, no room number) [place] [address], [facility] * (ABNORMAL) CBC with platelets and differential (09/01/2023 10:23 PM CDT) Only the most recent of10 resultswithin the time period is included. WBC Count 10.9 4.0 - 11.0 10e3/uL 09/01/2023 10:29 PM CDT LABORATORY RBC Count 3.92 3.80 - 5.20 10e6/uL 09/01/2023 10:29 PM CDT [facility] Hemoglobin 12.0 11.7 - 15.7 g/dL 09/01/2023 10:29 PM CDT [facility] Hematocrit 34.7(L) 35.0 - 47.0 % 09/01/2023 10:29 PM CDT [facility] MCV 89 78 - 100 fL 09/01/2023 10:29 PM CDT [facility] MCH 30.6 26.5 - 33.0 pg 09/01/2023 10:29 PM CDT [facility] MCHC 34.6 31.5 - 36.5 g/dL 09/01/2023 10:29 PM CDT [facility] RDW 12.5 10.0 - 15.0 % 09/01/2023 10:29 PM CDT [facility] Platelet Count 210 150 - 450 10e3/uL 09/01/2023 10:29 PM CDT [facility] % Neutrophils 71 % 09/01/2023 10:29 PM CDT [facility] % Lymphocytes 18 % 09/01/2023 10:29 PM CDT [facility] % Monocytes 9 % 09/01/2023 10:29 PM CDT [facility] % Eosinophils 1 % 09/01/2023 10:29 PM CDT [facility] % Basophils 0 % 09/01/2023 10:29 PM CDT [facility] % Immature Granulocytes 1 % 09/01/2023 10:29 PM CDT [facility] NRBCs per 100 WBC 0 <1 /100 024 10:29 PM CDT [facility] Absolute Neutrophils 7.8 1.6 - 8.3 10e3/uL 09/01/2023 10:29 PM CDT [facility] Absolute Lymphocytes 2.0 0.8 - 5.3 10e3/uL 09/01/2023 10:29 PM CDT [facility] Absolute Monocytes 1.0 0.0 - 1.3 10e3/uL 09/01/2023 10:29 PM CDT [facility] Absolute Eosinophils 0.1 0.0 - 0.7 10e3/uL 09/01/2023 10:29 PM CDT [facility] Absolute Basophils 0.0 0.0 - 0.2 10e3/uL 09/01/2023 10:29 PM CDT [facility] Absolute Immature Granulocytes 0.1 <=0.4 10e3/uL 09/01/2023 10:29 PM CDT [facility] Absolute NRBCs 0.0 10e3/uL 09/01/2023 10:29 PM CDT [facility] Blood BLOOD SPECIMEN / Unknown Venipuncture / Unknown 09/01/2023 10:23 PM CDT 09/01/2023 10:26 PM CDT Tricia Gregg DO LAB - BLOOD ORDERA BLES Performing Organization Address City/[facility]/ZIP Co de Phone Number LABORATORY [facility] Lab [address] Lab (1st floor, no room number) [place] [phone] [place] [address] * Lipase (09/01/2023 10:23 PM CDT) Only the most recent of5 resultswithin the time period is included. Lipase 31 13 - 60 U/L 09/01/2023 10:48 PM CDT [facility] Blood BLOOD SPECIMEN / Unknown Venipuncture / Unknown 09/01/2023 10:23 PM CDT 09/01/2023 10:26 PM CDT Tricia Gregg DO LAB - BLOOD ORDERA BLES Performing Organization Address City/[facility]/ZIP Co de Phone Number LABORATORY [facility] [address] Lab (1st floor, no room number) [address] * (ABNORMAL) Comprehensive metabolic panel (09/01/2023 10:23 PM CDT) Only the most recent of7 resultswithin the time period is included. Sodium 135 135 - 145 mmol/L 09/01/2023 10:48 PM CDT LABORATORY Potassium 3.9 3.4 - 5.3 mmol/L 09/01/2023 10:48 PM CDT [facility] Carbon Dioxide (CO2) 21(L) 22 - 29 mmol/L 09/01/2023 10:48 PM CDT [facility] Anion Gap 12 7 - 15 mmol/L 09/01/2023 10:48 PM CDT [facility] Urea Nitrogen 4.9(L) 6.0 - 20.0 mg/dL 09/01/2023 10:48 PM CDT [facility] Creatinine 0.62 0.51 - 0.95 mg/dL 09/01/2023 10:48 PM CDT [facility] GFR Estimate >90 >60 mL/min/1.7 3m2 09/01/2023 10:48 PM CDT [facility] Comment:eGFR calculated usin 2020 CKD-EPI equation. Calcium 9.4 8.8 - 10.4 mg/dL 09/01/2023 10:48 PM CDT [facility] Comment:Reference intervals for this test were updated on 08/23/2023 to reflect our healthy population more accurately. There may be differences in the flagging of prior results with similar values performed with this method. Those prior results can be interpreted in the context of the updated reference intervals. Chloride 102 98 - 107 mmol/L 09/01/2023 10:48 PM CDT LABORATORY Glucose 83 70 - 99 mg/dL 09/01/2023 10:48 PM CDT [facility] Alkaline Phosphatase 52 40 - 150 U/L 09/01/2023 10:48 PM CDT [facility] AST 14 0 - 45 U/L 09/01/2023 10:48 PM CDT [facility] ALT 17 0 - 50 U/L 09/01/2023 10:48 PM CDT [facility] Protein Total 7.0 6.4 - 8.3 g/dL 09/01/2023 10:48 PM CDT [facility] Albumin 4.0 3.5 - 5.2 g/dL 09/01/2023 10:48 PM CDT LABORATORY Bilirubin Total 0.6 <=1.2 mg/dL 09/01/2023 10:48 PM CDT LABORATORY Blood BLOOD SPECIMEN / Unknown Venipuncture / Unknown 09/01/2023 10:23 PM CDT 09/01/2023 10:26 PM CDT Tricia Gregg DO LAB - BLOOD ORDERA BLES [facility] Lab [address] Lab (1st floor, no room number) [place] [address], [facility] * MR Abdomen w/o Contrast (08/30/2023 6:48 PM CDT) Anatomical Region Laterality Modality Abdomen/Pelvis, SUBRAD MR BODY, UMP MR BODY, RAD MR Magnetic Resonance 08/30/2023 6:48 PM CDT Impressions 08/30/2023 7:09 PM CDT IMPRESSION: 1. ??No definite visualized explanation for patient's symptoms. Narrative 08/30/2023 7:09 PM CDT EXAM: MR ABDOMEN W/O CONTRAST LOCATION: [facility] DATE: 08/30/2023 INDICATION: Eval of LUQ abdominal pain, lower abdominal pain, approx 17 weeks COMPARISON: OB ultrasound 08/30/2023 TECHNIQUE: Routine abdomen protocol with multiple T1 and T2 axial and coronal sequences without IV contrast. CONTRAST: None. FINDINGS: No evidence of cholelithiasis or biliary obstruction. Pancreas, spleen and adrenal glands are unremarkable. No hydronephrosis. Small right upper pole renal cyst, no specific follow-up recommended. No evidence of bowel obstruction or acute inflammation. Appendix is not definitely visualized but there is no evidence of acute appendicitis. No lymphadenopathy or significant abdominopelvic ascites. Gravid uterus, MRI protocol is not optimized for evaluation of anatomy. Ovaries are symmetrical. No acute bony abnormality. Procedure Note Domingo Acuna MD - 08/30/2023 EXAM: MR ABDOMEN W/O CONTRAST LOCATION: [facility] DATE: 08/30/2023 INDICATION: Eval of LUQ abdominal pain, lower abdominal pain, approx 17weeks COMPARISON: OB ultrasound 08/30/2023 TECHNIQUE: Routine abdomen protocol with multiple T1 and T2 axial andcoronal sequences without IV contrast. CONTRAST: None. FINDINGS: No evidence of cholelithiasis or biliary obstruction. Pancreas,spleen and adrenal glands are unremarkable. No hydronephrosis. Small rightupper pole renal cyst, no specific follow-up recommended. No evidence ofbowel obstruction or acute inflammation. Appendix is not definitely visualized but there is noevidence of acute appendicitis. No lymphadenopathy or significantabdominopelvic ascites. Gravid uterus, MRI protocol is not optimized forevaluation of anatomy. Ovaries are symmetrical. No acute bony abnormality. IMPRESSION: 1. No definite visualized explanation for patient's symptoms. Phyllis Walden PA-C [facility] ORDERAB LES * US OB >14 Weeks Limited wo Measurement (08/30/2023 5:52 PM CDT) Anatomical Region Laterality Modality Abdomen/Pelvis Ultrasound 08/30/2023 5:52 PM CDT Impressions 08/30/2023 5:58 PM CDT IMPRESSION: 1. ??Single living intrauterine gestation. 2. ??Slightly complex 1.2 cm left ovarian cyst, likely a hemorrhagic cyst. Narrative 08/30/2023 5:58 PM CDT EXAM: US OB LIMITED >14 WEEKS WO MEASUREMENT LOCATION: [facility] DATE: 08/30/2023 INDICATION: Evaluation of lower abdominal pain, dec movement, approx 17 weeks COMPARISON: Ultrasound 07/05/2023 TECHNIQUE: Transabdominal and endovaginal ultrasound. FINDINGS: Single living fetus, cephalic presentation. HEART RATE: 140 bpm. SDP 4.0 cm. PLACENTA: Posterior with a suspected incidental succenturiate lobe. No previa. CERVIX: 4.0 cm. Unremarkable stomach, kidneys and bladder. A 1.2 cm mildly complex likely hemorrhagic left ovarian cyst. Procedure Note Todd Vann MD - 08/30/2023 EXAM: US OB LIMITED >14 WEEKS WO MEASUREMENT LOCATION: [facility] DATE: 08/30/2023 INDICATION: Evaluation of lower abdominal pain, dec movement, weeks COMPARISON: Ultrasound 07/05/2023 TECHNIQUE: Transabdominal and endovaginal ultrasound. FINDINGS: Single living fetus, cephalic presentation. HEART RATE: 140 bpm. SDP 4.0 cm. PLACENTA: Posterior with a suspected incidental succenturiate lobe. Noprevia. CERVIX: 4.0 cm. Unremarkable stomach, kidneys and bladder. A 1.2 cm mildly complex likely hemorrhagic left ovarian cyst. IMPRESSION: 1. Single living intrauterine gestation. 2. Slightly complex 1.2 cm left ovarian cyst, likely a hemorrhagiccyst. Phyllis Walden PA-C IMLong US ORDERABL ES * (ABNORMAL) UA with Microscopic reflex to Culture (08/30/2023 2:16 PM CDT) Only the most recent of6 resultswithin the time period is included. Color Urine Yellow Colorless, Straw, Light Yellow, Yellow 08/30/2023 2:40 PM CDT LABORATORY Appearance Urine Clear Clear 08/30/19 2:40 PM CDT [facility] LABORATORY Glucose Urine Negative Negative mg/dL 08/30/2023 2:40 PM CDT LABORATORY Bilirubin Urine Negative Negative 2:40 PM CDT LABORATORY Ketones Urine Trace(A) Negative mg/dL 08/30/2023 2:40 PM CDT LABORATORY Specific [employer] Urine 1.014 1.003 - 1.035 08/30/2023 2:40 PM CDT LABORATORY Blood Urine Negative Negative 08/30/2023 2:40 PM CDT LABORATORY pH Urine 6.5 5.0 - 7.0 08/30/2023 2:40 PM CDT LABORATORY Protein Albumin Urine Negative Negative mg/dL 08/30/2023 2:40 PM CDT LABORATORY Urobilinogen Urine Normal Normal, 2.0 mg/dL 08/30/2023 2:40 PM CDT LABORATORY Nitrite Urine Negative Negative 08/30/2023 2:40 PM CDT LABORATORY Leukocyte Esterase Urine Negative Negative 08/30/2023 2:40 PM CDT LABORATORY Mucus Urine Present(A) None Seen /LPF 08/30/2023 2:40 PM CDT LABORATORY RBC Urine 2 <=2 /HPF 08/30/2023 2:40 PM CDT LABORATORY WBC Urine <1 <=5 /HPF 08/30/2023 2:40 PM CDT LABORATORY Squamous Epithelials Urine 1 <=1 /HPF 08/30/2023 2:40 PM CDT LABORATORY Urine URINE SPECIMEN OBTAINED BY CLEAN CATCH PROCEDURE / Unknown Non-blood Collection / Unknown 08/30/2023 2:16 PM CDT 08/30/2023 2:29 PM CDT Narrative LABORATORY - 08/30/2023 2:40 PM CDT Urine Culture not indicated Phyllis Walden PA-C LAB - URINE ORD ERABLES [facility] Acute Care Lab [address] Lab (1st floor, no room number) [place] [address], [facility] * Extra Red Top Tube (08/30/2023 2:12 PM CDT) Only the most recent of5 resultswithin the time period is included. Hold Specimen [facility] 08/30/2023 3:31 PM CDT RH LABORATORY Blood STRUCTURE OF LEFT UPPER LIMB / Unknown Venipuncture / Unknown 08/30/2023 2:12 PM CDT 08/30/2023 2:29 PM CDT Phyllis Walden PA-C LAB - BLOOD ORD ERABLES [facility] Care Lab [address] Lab (1st floor, no room number) [place] [address] * Extra Blue Top Tube (08/30/2023 2:12 PM CDT) Only the most recent of4 resultswithin the time period is included. Hold Specimen [facility] 08/30/2023 3:31 PM CDT LABORATORY Blood STRUCTURE OF LEFT UPPER LIMB / Unknown Venipuncture / Unknown 08/30/2023 2:12 PM CDT 08/30/2023 2:29 PM CDT Phyllis Walden PA-C LAB - BLOOD ORD ERABLES [facility] Acute Care Lab [address] Lab (1st floor, no room number) [place] [address], [facility] * Occult blood stool (08/28/2023 5:19 AM CDT) Pathologist [facility] Occult Blood Negative Negative [facility] 08/28/2023 5:25 AM CDT LABORATORY Stool RECTAL CONTENTS / Unknown Non-blood Collection / Unknown 08/28/2023 5:19 AM CDT 08/28/2023 5:22 AM CDT Tricia Gregg DO LAB - STOOLS ORDER JOHN [facility] Acute Care Lab [address] Lab (1st floor, no room number) [place] [address] * US OB < 14 Weeks Single (07/05/2023 4:40 AM CDT) Anatomical Region Laterality Modality Abdomen/Pelvis Ultrasound 07/05/2023 4:40 AM CDT Impressions 07/05/2023 4:43 AM CDT IMPRESSION: 1. ??Single living intrauterine gestation at 10 weeks 3 days by crown-rump length measurement, EDC 01/28/2024. 2. ??Small subchorionic hematoma measuring 2.4 cm. Narrative 07/05/2023 4:43 AM CDT EXAM: US OB < 14 WEEKS SINGLE-TRANSABDOMINAL LOCATION: [facility] DATE: 07/05/2023 INDICATION: Bleeding during . COMPARISON: None. TECHNIQUE: Transabdominal scans were performed. FINDINGS: UTERUS: Single normal appearing intrauterine gestation sac. No yolk sac is identified. CRL: Measures 3.4 cm, equals 10 weeks 3 days. HEART RATE: 167 bpm. AMNIOTIC FLUID: Normal. PLACENTA: Not yet formed. A subchorionic fluid collection measures 2.6 x 0.6 x 1.1 cm. RIGHT OVARY: Obscured by bowel gas. LEFT OVARY: Obscured by bowel gas. No pelvic free fluid identified. Procedure Note Valentino Jennings MD - 07/05/2023 EXAM: US OB < 14 WEEKS SINGLE-TRANSABDOMINAL LOCATION: [facility] DATE: 07/05/2023 INDICATION: Bleeding during . COMPARISON: None. TECHNIQUE: Transabdominal scans were performed. FINDINGS: UTERUS: Single normal appearing intrauterine gestation sac. No yolk sac isidentified. CRL: Measures 3.4 cm, equals 10 weeks 3 days. HEART RATE: 167 bpm. AMNIOTIC FLUID: Normal. PLACENTA: Not yet formed. A subchorionic fluid collection measures 2.6 x0.6 x 1.1 cm. RIGHT OVARY: Obscured by bowel gas. LEFT OVARY: Obscured by bowel gas. No pelvic free fluid identified. IMPRESSION: 1. Single living intrauterine gestation at 10 weeks 3 days by crown-rumplength measurement, EDC 01/28/2024. 2. Small subchorionic hematoma measuring 2.4 cm. Miranda Estrada MD IMG US ORDERABLES * Adult Type and Screen (07/05/2023 3:30 AM CDT) ABO/RH(D) A POS 07/05/2023 3:15 AM CDT RH BLOOD BANK Antibody Screen Negative Negative 07/05/2023 3:15 AM CDT RH BLOOD BANK SPECIMEN EXPIRATION DATE [id number] 07/05/2023 3:15 AM CDT RH BLOOD BANK Blood BLOOD SPECIMEN / Unknown Venipuncture / Unknown 07/05/2023 3:30 AM CDT 07/05/2023 3:34 AM CDT Miranda Estrada MD LAB - BLOOD BANK T EST ORDER Performing Organization Address City/[facility]/ZIP Co de Phone Number BLOOD BANK [address] [place] [address] * (ABNORMAL) HCG quantitative (07/05/2023 3:30 AM CDT) Only the most recent of3 resultswithin the time period is included. hCG Quantitative 53,109(H) <5 mIU/mL 07/05/19 24 4:59 AM CDT RH LABORATORY Comment: Adult: 0-5 mIU/mL for healthy non- person Neonates: Should be within normal ranges by 2 days after Blood BLOOD SPECIMEN / Unknown Venipuncture / Unknown 07/05/2023 3:30 AM CDT 07/05/2023 3:34 AM CDT Miranda Estrada MD LAB - BLOOD ORDERA BLES LABORATORY [facility] Acute Care Lab [address] Lab (1st floor, no room number) [place] [address], [place] * US OB 1st Trimester W Transvaginal W Doppler (06/26/2023 8:05 PM CDT) Anatomical Region Laterality Modality Abdomen/Pelvis Ultrasound 06/26/2023 8:05 PM CDT Impressions 06/26/2023 8:17 PM CDT IMPRESSION: 1. ??Single living intrauterine gestation at 9 weeks and 4 days, EDC 01/28/2024. 2. ??Small left-sided subchorionic hemorrhage measuring 2 cm. Narrative 06/26/2023 8:17 PM CDT EXAM: US OB 1ST TRIMESTER W TRANSVAGINAL W DOPPLER LOCATION: [facility] DATE: 06/26/2023 INDICATION: lower abdominal pain, vaginal bleeding COMPARISON: None. TECHNIQUE: Transabdominal scans were performed. Endovaginal ultrasound was performed to better visualize the embryo. FINDINGS: UTERUS: Single normal appearing intrauterine gestation sac. CRL: Measures 3.9 cm, equals 9 weeks and 4 days. HEART RATE: 179 bpm. AMNIOTIC FLUID: Normal. PLACENTA: Not yet formed. Left sided subchorionic hemorrhage measures 2.0 x 0.9 x 1.1 cm. RIGHT OVARY: 1.9 cm collapsing hemorrhagic corpus luteal cyst. LEFT OVARY: 1.7 cm physiologic cyst. This also has the appearance of a corpus luteal cyst. Procedure Note Todd Vann MD - 06/26/2023 EXAM: US OB 1ST TRIMESTER W TRANSVAGINAL W DOPPLER LOCATION: [facility] DATE: 06/26/2023 INDICATION: lower abdominal pain, vaginal bleeding COMPARISON: None. TECHNIQUE: Transabdominal scans were performed. Endovaginal ultrasound wasperformed to better visualize the embryo. FINDINGS: UTERUS: Single normal appearing intrauterine gestation sac. CRL: Measures 3.9 cm, equals 9 weeks and 4 days. HEART RATE: 179 bpm. AMNIOTIC FLUID: Normal. PLACENTA: Not yet formed. Left sided subchorionic hemorrhage measures 2.0x 0.9 x 1.1 cm. RIGHT OVARY: 1.9 cm collapsing hemorrhagic corpus luteal cyst. LEFT OVARY: 1.7 cm physiologic cyst. This also has the appearance of acorpus luteal cyst. IMPRESSION: 1. Single living intrauterine gestation at 9 weeks and 4 days, EDC01/28/2024. 2. Small left-sided subchorionic hemorrhage measuring 2 cm. Ivan Grace PA-C IMG US ORDERABLES * Extra Blood Bank Purple Top Tube (06/26/2023 6:27 PM CDT) Only the most recent of2 resultswithin the time period is included. Hold Specimen [facility] 06/26/2023 7:46 PM CDT RH LABORATORY Blood STRUCTURE OF LEFT UPPER LIMB / Unknown Venipuncture / Unknown 06/26/2023 6:27 PM CDT 06/26/2023 6:34 PM CDT Ivan Grace PA-C LAB - BLOOD ORDERABL ES RH LABORATORY [facility] Acute Care Lab [address] Lab (1st floor, no room number) [place] [address] * Basic metabolic panel (06/26/2023 6:22 PM CDT) Only the most recent of2 resultswithin the time period is included. Sodium 136 135 - 145 mmol/L 06/26/2023 6:59 PM CDT [facility] LABORATORY Comment:Reference intervals for this test were updated on 11/02/2022 to more accurately reflect our healthy population. There may be differences in the flagging of prior results with similar values performed with this method. Interpretation of those prior results can be made in the context of the updated reference intervals. Potassium 3.9 3.4 - 5.3 mmol/L 06/26/2023 6:59 PM CDT LABORATORY Chloride 102 98 - 107 mmol/L 06/26/2023 6:59 PM CDT RH LABORATORY Carbon Dioxide (CO2) 25 22 - 29 mmol/L 06/26/2023 6:59 PM CDT RH LABORATORY Anion Gap 9 7 - 15 mmol/L 06/26/2023 6:59 PM CDT RH LABORATORY Urea Nitrogen 7.8 6.0 - 20.0 mg/dL 06/26/2023 6:59 PM CDT RH LABORATORY Creatinine 0.58 0.51 - 0.95 mg/dL 06/26/2023 6:59 PM CDT RH LABORATORY GFR Estimate >90 >60 mL/min/1. 73m2 06/26/2023 6:59 PM CDT RH LABORATORY Calcium 9.6 8.6 - 10.0 mg/dL 06/26/2023 6:59 PM CDT RH LABORATORY Glucose 90 70 - 99 mg/dL 06/26/2023 6:59 PM CDT RH LABORATORY Blood STRUCTURE OF LEFT UPPER LIMB / Unknown Venipuncture / Unknown 06/26/2023 6:22 PM CDT 06/26/2023 6:35 PM CDT Ivan Grace PA-C LAB - BLOOD ORDERABL ES LABORATORY [facility] [address] (1st floor, no room number) [place] [address] * US OB < 14 Weeks w Transvaginal (06/11/2023 11:28 AM CDT) Anatomical Region Laterality Modality Abdomen/Pelvis Ultrasound 06/11/2023 11:2 8 AM CDT Impressions 06/11/2023 11:50 AM CDT IMPRESSION: 1. ??Single living intrauterine gestation at 6 weeks 3 days, EDC 02/04/2024. Narrative 06/11/2023 11:50 AM CDT EXAM: US OB <14 WEEKS WITH TRANSVAGINAL SINGLE LOCATION: [facility] DATE: 06/11/2023 INDICATION: 6 weeks , abdominal cramping, decreasing HCG COMPARISON: 06/08/2023 TECHNIQUE: Transabdominal scans were performed. Endovaginal ultrasound was performed to better visualize the embryo. FINDINGS: UTERUS: Single normal appearing intrauterine gestation sac. CRL: Measures 0.6 cm, equals 6 weeks 3 days. HEART RATE: 114 bpm. AMNIOTIC FLUID: Normal. PLACENTA: Not yet formed. No evidence for sub-chorionic hemorrhage. RIGHT OVARY: Normal. LEFT OVARY: Normal. Procedure Note Milan Garrison MD - 06/11/2023 EXAM: US OB <14 WEEKS WITH TRANSVAGINAL SINGLE LOCATION: [facility] DATE: 06/11/2023 INDICATION: 6 weeks , abdominal cramping, decreasing HCG COMPARISON: 06/08/2023 TECHNIQUE: Transabdominal scans were performed. Endovaginal ultrasound wasperformed to better visualize the embryo. FINDINGS: UTERUS: Single normal appearing intrauterine gestation sac. CRL: Measures 0.6 cm, equals 6 weeks 3 days. HEART RATE: 114 bpm. AMNIOTIC FLUID: Normal. PLACENTA: Not yet formed. No evidence for sub-chorionic hemorrhage. RIGHT OVARY: Normal. LEFT OVARY: Normal. IMPRESSION: 1. Single living intrauterine gestation at 6 weeks 3 days, EDC02/04/2024. Brianda Ratliff PA-C IMG US ORDERABLES * (ABNORMAL) HCG QUALitative (blood) (06/11/2023 10:50 AM CDT) hCG Serum Qualitative Positive( A) Negative NICOLLE 06/11/2023 11:15 AM CDT [facility] LABORATORY Comment:This test is for scr eening purposes. Results should be interpreted along with the clinical picture. Confirmation testing is available if warranted by ordering [id number], HCG Quantitative . Blood STRUCTURE OF LEFT UPPER LIMB / Unknown Venipuncture / Unknown 06/11/2023 10:50 AM CDT 06/11/2023 10:56 AM CDT Brianda Ratliff PA-C LAB - BLOOD ORDERABL ES [facility] Acute Care Lab [address] Lab (1st floor, no room number) [place] [address] * (ABNORMAL) Lipid panel reflex to direct LDL Non-fasting (10/17/2018 1:31 PM CDT) Cholesterol 167 <200 mg/dL 10/18/2018 8:52 AM CDT [facility] Triglycerides 197(H) <150 mg/dL 10/18/2018 8:52 AM CDT [facility] Comment: Borderline high: ??150-199 mg/dl High: ? 200-499 mg/dl Very high: ? >499 mg/dl Non Fasting HDL Cholesterol 38(L) >49 mg/dL 9 9:10 AM CDT [facility] LDL Cholesterol Calculated 90 <100 mg/dL 10/18/2018 9:10 AM CDT [facility] Comment:Desirable: <100 mg/d l Non HDL Cholesterol 129 <130 mg/dL 10/18/2018 9:10 AM CDT [facility] Blood specimen (specimen) 10/17/2018 1:31 PM CDT 10/17/2018 1:32 PM CDT Kathy Ross PA-C LAB - BLOOD ORDERABLES [facility] [address] [place] [address] * Pap imaged thin layer screen with HPV - recommended age 30 - 65 years (select HPV order below) (02/10/2017 8:03 AM HAT BRUSHER MACHINE) PAP SERENA Pozo Report Patient Name: ADAM VELASQUEZ MR#: [id number] Specimen #: [id number] Collected: 02/10/2017 Received: 02/11/2017 Reported: 02/14/2017 09:43 Ordering Phy(s): JERED BARROW For improved result formatting, select 'View Enhanced Report Format' under Linked Documents section. SPECIMEN/STAIN PROCESS: Pap imaged thin layer prep screening (Surepath, FocalPoint with guided screening) ? Pap-Cyto x 1, HPV ordered x 1 SOURCE: Cervical, endocervical Pap imaged thin layer prep screening (Surepath, FocalPoint with guided screening) SPECIMEN ADEQUACY: Satisfactory for evaluation. -Transformation zone component present. CYTOLOGIC INTERPRETATION: Negative for intraepithelial lesion or malignancy Electronically signed out by: MIRNA Nieves (ASCP) Processed and screened at [facility], [facility] CLINICAL HISTORY: LMP: 01/14/17 Previous normal pap Date of Last Pap: 12/14/13, Papanicolaou Test Limitations: ??Cervical cytology is a screening test with limited sensitivity; regular screening is critical for cancer prevention; Pap tests are primarily effective for the diagnosis/preventi on of squamous cell carcinoma, not adenocarcinomas or other cancers. TESTING LAB LOCATION: [facility] [address] [place], [place] ??[address] COLLECTION SITE: Client: ??[facility] Location: [facility] (R) [facility] Cytologic material (specimen) 02/10/2017 8:03 AM HAT BRUSHER MACHINE 02/11/2017 10:26 AM HAT BRUSHER MACHINE Jered Barrow MD LAB - OPTIME CL INICAL SPECIMEN [facility] * HPV High Risk Types DNA Cervical (02/10/2017 7:52 AM HAT BRUSHER MACHINE) HPV 16 DNA Negative NEG^Nega tive 02/16/2017 2:35 PM HAT BRUSHER MACHINE [facility] HPV 18 DNA Negative NEG^Nega tive 02/16/2017 2:35 PM HAT BRUSHER MACHINE [facility] Other HR HPV Negative NEG^Nega tive 02/16/2017 2:35 PM HAT BRUSHER MACHINE [facility] Final Diagnosis This patient's sample is negative for HPV DNA. 02/16/2017 2:35 PM HAT BRUSHER MACHINE [facility] Comment: This test was developed and its performance characteristics determined by the [facility], [facility]. It has not been cleared or approved by the FDA. The laboratory is regulated under CLIA as qualified to perform high-complexity testing. This test is used for clinical purposes. It should not be regarded as investigational or for research. (Note) METHODOLOGY: ??The Deniz matthew 4800 system uses automated extraction, simultaneous amplification of HPV (L1 region) and beta-globin, ?? followed by ??real time detection of fluorescent labeled HPV and beta globin using specific oligonucleotide probes . The test specifically identifies types HPV 16 DNA and HPV 18 DNA while concurrently detecting the rest of the high risk types (31, 33, 35, 39, 45, 51, 52, 56, 58, 59, 66 or 68). COMMENTS: ??This test is not intended for use as a screening device for women under age 30 with normal cervical cytology. ??Results should be correlated with cytologic and histologic findings. Close clinical followup is recommended. Specimen Description Cervical Cells 02/15/2017 9:32 AM HAT BRUSHER MACHINE [facility] Comment:[id number] Cervical Cells 02/10/2017 7: 52 AM HAT BRUSHER MACHINE 02/10/2017 8:14 AM HAT BRUSHER MACHINE Jered Barrow MD LAB - BLOOD ORD ERABLES Performing Organization Address [facility] Co de Phone Number [facility] [address] [place] [address] * Hepatitis C antibody (09/23/2011 1:54 PM CDT) Hepatitis C Antibody Negative NEG [facility] Blood specimen (specimen) 09/23/2011 1:54 PM CDT 09/23/2011 1:55 PM CDT Mary Clark MD LAB - BLOOD ORDERABL ES Performing Organization Address [facility] Co de Phone Number [facility] * HIV 1 and 2 Antibody (12/10/2010 11:34 AM CDT) HIV 1&2 Antibody Negative NEG [facility] Blood specimen (specimen) 12/10/2010 11:34 AM CDT 12/10/2010 11:35 AM CDT Aleksey Argueta MD LAB - BLOOD ORDERABL ES Performing Organization Address [facility]/ZIP Co de Phone Number [facility] from Last 3 Months or Most Recently Relevant to Health Maintenance Advance Directives For more information, please contact: [phone] * Full Code (Latest Code Status on File) Date Activated Date Inactivated Comments 05/09/2021 10:26 PM 05/10/2021 2:52 PM All basic and advanced life-sustaining interventions are performed as appropriate Question Answer Comments Code status determined by: Discussion with patie nt/ legal decision maker Care Teams [employer] Technician Relationship Specialty Start Date End Date Clinic, [facility] [address] [place], [place] [id number] PCP - General 03/02/20 Mary Kate Herrera PA-C [address] [place] [address] Assigned PCP 02/15/21 Randal Joe MD [facility] [address] [place], [place] [phone] 07/20/22
--- OUTSIDE RECORDS SUMMARY | 2023-09-08 23:08 | XMS_ITS | Encounter Summary ---
Author Organization [place] Address [address] [place] [address] Care Team Providers Care Service Unit Operator Name Role Phone [facility] Primary Care Pro vider Mary Kate Herrera PA-C Unavailable Randal Joe MD Unavailable [phone] Reason for Visit * Reason Comments Constipation Abdominal Pain Encounter Details Date Type Department Care Team (Late st Contact Info) Description 09/01/2023 10:08 PM CDT - 09/01/2023 11:48 PM CDT Emergency [facility] Emergency Dept [address] [place] [address] Tricia Gregg, DO [facility] [address] [place] [address] Constipation, unspecified constipation type; Abdominal pain, unspecified abdominal location Discharge Disposition: Home or Self Care Social History Tobacco Use Types Packs/Day Years [...] on file Sexual Orientation Not on file documented as of this encounter Last Filed Vital Signs Vital Sign Reading Time Taken Comments Blood Pressure 111/64 09/01/2023 11:30 PM CDT Pulse 72 09/01/2023 11:30 PM CDT Temperature 36.7 ??C (98.1 ??F) 09/01/2023 9:57 PM CD T Respiratory Rate 18 09/01/2023 9:57 PM CDT Oxygen Saturation 98% 09/01/2023 11:30 PM CDT Inhaled Oxygen Concentration - - Weight 82.6 kg (182 lb) 09/01/2023 9:57 PM CDT Height - - Body Mass Index 30.29 08/30/2023 1:37 PM CDT documented in this encounter Discharge Instructions * Attachments The following attachments cannot be sent through Care Everywhere. * Abdominal Pain (Uzbek) * Constipation (Uzbek) documented in this encounter Medications at Time of Discharge Medication Sig Dispensed Refills Start Date End Date famotidine (PEPCID) 20 MG tablet Take 1 tablet (20 mg) by mouth 2 times daily for 10 days 20 tablet 09/01/2023 09/11/2023 glycerin (LAXATIVE) 1.[address] 1 suppository rectally daily as needed (constipation) 12 suppository 09/01/2023 hydrOXYzine (ATARAX) 25 MG tablet Take 25 mg by mouth nightly as needed 05/28/2022 Vit-Fe Fumarate-FA ( PLUS) 27-1 MG TABS Take 1 tablet by mouth daily promethazine (PHENERGAN) 25 MG tablet Take 25 mg by mouth every 6 hours as needed for nausea VITAMIN D3 50 MCG (1999 UT) tablet Take 1 tablet by mouth daily mineral oil enema Place 1 enema rectally once for 1 dose 133 mL 09/01/2023 09/01/2023 sucralfate (CARAFATE) 1 GM tablet Take 1 tablet (1 g) by mouth 4 times daily for 5 days 20 tablet 08/30/2023 09/04/2023 documented as of this encounter ED Notes * Valencia Cedillo RN - 09/01/2023 9:59 PM CDT Pt is , present to triage for constipation. Pt was cleared by L&D prior to check in, pt reported constipation x2 days, rectum pressure, unable to have BM. Pt also noted to have epigastric pain with acid reflex. Has regular OB follow up. Requires enema in the past. ABC intact Triage Assessment (Adult) Row Name 09/01/236 Triage Assessment Airway WDL WDL Respiratory WDL Respiratory WDL WDL Skin Circulation/Temperature WDL Skin Circulation/Temperature WDL WDL Cardiac WDL Cardiac WDL WDL Peripheral/Neurovascular WDL Peripheral Neurovascular WDL WDL Cognitive/Neuro/Behavioral WDL Cognitive/Neuro/Behavioral WDL WDL * Tricia Gregg, DO - 09/01/2023 9:41 PM CDT Emergency Department Note History of Present Illness Chief Complaint Constipation and Abdominal Pain HPI Alisia Velasquez is a 38 year old female with a history of anxiety and MDD who presents to theemergency department for constipation and abdominal pain. The patient states that she has been constipated for 2 days. She reports that she has been straining to have a bowel movement. She has tried taking Colace and Miralax with no relief. She states that she is also experiencing abdominal pain and distention as well as a fever of 102 F (yesterday), nausea, and heartburn. She notes she feels dehydrated She reports that she is currently 17w5d gestation. Denies urinary symptoms such as urinary frequency, hematuria, or dysuria. No vaginal bleeding. Denies cough or sore throat. She adds that she recently finished a course of nitrofurantoin for a UTI. Independent Historian None Review of External Notes OB cleared patient prior to arrival to the ED Past Medical History Medical History and Problem List Anxiety Arthritis MDD Medications hydrOXYzine (ATARAX) 25 MG tablet promethazine (PHENERGAN) 25 MG tablet sucralfate (CARAFATE) 1 GM tablet Surgical History Appendectomy D&C Physical Exam Patient Vitals for the past 24 hrs: BP Temp Temp src Pulse Resp SpO2 Weight 09/01/232156 115/83 98.1 ??F (36.7 ??C) Temporal 79 18 99 % 82.6 kg (182 lb) Physical Exam Nursing note and vitals reviewed. Constitutional: Well nourished. Eyes: Conjunctiva normal. Pupils are equal, round, and reactive to light. ENT: Nose normal. Mucous membranes pink and moist. Neck: Normal range of motion. CVS: Normal rate, regular rhythm. Normal heart sounds. Pulmonary: Lungs clear to auscultation bilaterally. No wheezes/rales/rhonchi. GI: Abdomen soft. Gravid. Nontender. LORETTA with nonthrombosed, nonbleeding external hemorrhoid. No stool at anal verge. No CVA tenderness MSK: No calf tenderness or swelling. Neuro: Alert. Follows simple commands. Skin: Skin is warm and dry. No rash noted. Psychiatric: Normal affect. Diagnostics Lab Results Labs Ordered and Resulted from Time of ED Arrival to Time of ED Departure COMPREHENSIVE METABOLIC PANEL - Abnormal Result Value Sodium 135 Potassium 3.9 Carbon Dioxide (CO2) 21 (*) Anion Gap 12 Urea Nitrogen 4.9 (*) Creatinine 0.62 GFR Estimate >90 Calcium 9.4 Chloride 102 Glucose 83 Alkaline Phosphatase 52 AST 14 ALT 17 Protein Total 7.0 Albumin 4.0 Bilirubin Total 0.6 CBC WITH PLATELETS AND DIFFERENTIAL - Abnormal WBC Count 10.9 RBC Count 3.92 Hemoglobin 12.0 Hematocrit 34.7 (*) MCV 89 MCH 30.6 MCHC 34.6 RDW 12.5 Platelet Count 210 % Neutrophils 71 % Lymphocytes 18 % Monocytes 9 % Eosinophils 1 % Basophils 0 % Immature Granulocytes 1 NRBCs per 100 WBC 0 Absolute Neutrophils 7.8 Absolute Lymphocytes 2.0 Absolute Monocytes 1.0 Absolute Eosinophils 0.1 Absolute Basophils 0.0 Absolute Immature Granulocytes 0.1 Absolute NRBCs 0.0 ROUTINE UA WITH MICROSCOPIC - Abnormal Color Urine Yellow Appearance Urine Clear Glucose Urine Negative Bilirubin Urine Negative Ketones Urine Trace (*) Specific [place] Urine 1.032 Blood Urine Large (*) pH Urine 6.5 Protein Albumin Urine 30 (*) Urobilinogen Urine Normal Nitrite Urine Negative Leukocyte Esterase Urine Negative Mucus Urine Present (*) RBC Urine >182 (*) WBC Urine 2 Squamous Epithelials Urine <1 LIPASE - Normal Lipase 31 Imaging None Independent Interpretation None ED Course Medications Administered Medications famotidine (PEPCID) injection 20 mg (20 mg Intravenous $Given 7/2253) Discussion of Management None ED Course ED Course as of 09/01/23 2341 Shellie Sep 01, [id number] I obtained history and examined the patient as noted above. 2338 I discussed findings and discharge with the patient. All questions answered. Optional/Additional Documentation None Medical Decision Making / Diagnosis [facility] Diagnoses: None MIPS None [facility] Alisia Velasquez is a 38 year old female presenting in second trimester with abdominal pain and constipation. She is nontoxic, in no significant distress on arrival. Patient was cleared by COMPUTER APPLICATIONS ENGINEER team prior to arrival to the ED. I do not feel emergent imaging is warranted at this point in time and patient comfortable deferring. She had no significant reproducible abdominal tenderness on exam. Labs overall reassuring without profound anemia or significant electrolyte derangement. LFTs/lipase normal. UA with noted blood though no obvious infection. She is not a RhoGAM candidate and denies any vaginal bleeding. Digital rectal exam without significant stool burden noted. We did discuss utility of x-ray imaging though patient wishes to defer at this point in time in the setting of which I think is quite reasonable. Will provide an enema and discharge as well as suppositories. We did discuss utilization of doubling MiraLAX and continuation of stool softener Colace at home. Dietary recommendations discussed. She was given Pepcid during her time in the ED and did report symptom improvement as well. Will continue this on discharge as strong suspicion some componentof underlying dyspepsia. Monitor for fever, increasing abdominal pain, protracted vomiting or should symptoms worsen or change to promptly represent. Plan close PCP follow-up. Disposition The patient was discharged. Diagnosis ICD-10-CM 1. Constipation, unspecified constipation type K59.00 2. Abdominal pain, unspecified abdominal location R10.9 Discharge Medications New Prescriptions FAMOTIDINE (PEPCID) 20 MG TABLET Take 1 tablet (20 mg) by mouth 2 times daily for 10 days GLYCERIN (LAXATIVE) 1.[address] 1 suppository rectally daily as needed (constipation) MAGNESIUM CITRATE 1.745 GM/30ML SOLUTION Take 296 mLs by mouth once for 1 dose Scribe Disclosure: Yves Kaba, am serving as a scribe at 11:24 PM on 09/01/2023 to document services personally performed by Tricia Gregg DO based on my observations and the provider's statements to me. Tricia Gregg DO 09/02/23 0123 documented in this encounter Plan of Treatment Not on file documented as of this encounter Procedures Procedure Name Priority Date/Time Associated Diagnosis Comments ROUTINE UA WITH MICROSCOPIC STAT 09/01/2023 11:05 PM CDT CBC WITH PLATELETS AND DIFFERENTIAL STAT 09/01/2023 10:23 PM CDT CBC WITH PLATELETS & DIFFERENTIAL STAT 09/01/2023 10:23 PM CDT LIPASE STAT 09/01/2023 10:23 PM CDT COMPREHENSIVE METABOLIC PANEL STAT 09/01/2023 10:23 PM CDT documented in this encounter Results * (ABNORMAL) UA with Microscopic (09/01/2023 11:05 PM CDT) Color Urine Yellow Colorless, Straw, Light Yellow, Yellow 09/01/2023 11:30 PM CDT LABORATORY Appearance Urine Clear Clear 09/01/19 11:30 PM CDT LABORATORY Glucose Urine Negative Negative mg/dL 09/01/2023 11:30 PM CDT [facility] Bilirubin Urine Negative Negative 11:30 PM CDT LABORATORY Ketones Urine Trace(A) Negative mg/dL 09/01/2023 11:30 PM CDT LABORATORY Specific [place] Urine 1.032 1.003 - 1.035 09/01/2023 11:30 PM CDT LABORATORY Blood Urine Large(A) Negative 09/01/2023 11:30 PM CDT LABORATORY pH Urine 6.5 5.0 - 7.0 09/01/2023 11:30 PM CDT [facility] Protein Albumin Urine 30(A) Negative mg/dL 09/01/2023 11:30 PM CDT [facility] Urobilinogen Urine Normal Normal, 2.0 mg/dL 09/01/2023 11:30 PM CDT LABORATORY Nitrite Urine Negative Negative 09/01/2023 11:30 PM CDT [facility] Leukocyte Esterase Urine Negative Negative 09/01/2023 11:30 PM CDT [facility] Mucus Urine Present(A) None Seen /LPF 09/01/2023 11:30 PM CDT [facility] RBC Urine >182(H) <=2 /HPF 09/01/2023 11:30 PM CDT [facility] WBC Urine 2 <=5 /HPF 09/01/2023 11:30 PM CDT [facility] Squamous Epithelials Urine <1 <=1 /HPF 09/01/2023 11:30 PM CDT [facility] Urine URINE SPECIMEN OBTAINED BY CLEAN CATCH PROCEDURE / Unknown Non-blood Collection / Unknown 09/01/2023 11:05 PM CDT 09/01/2023 11:17 PM CDT Tricia Gregg DO LAB - URINE ORDERA BLES [facility] [address] Lab (1st floor, no room number) [place] [address] * (ABNORMAL) CBC with platelets and differential (09/01/2023 10:23 PM CDT) WBC Count 10.9 4.0 - 11.0 10e3/uL 09/01/2023 10:29 PM CDT [facility] RBC Count 3.92 3.80 - 5.20 [...] LAB - BLOOD ORDERA BLES [facility] [address] Lab (1st floor, no room number) [place] [address], [facility] * Lipase (09/01/2023 10:23 PM CDT) Lipase 31 13 - 60 U/L 09/01/2023 10:48 PM CDT [facility] Blood BLOOD SPECIMEN / Unknown Venipuncture / Unknown 09/01/2023 10:23 PM CDT 09/01/2023 10:26 PM CDT Tricia Gregg DO LAB - BLOOD ORDERA BLES [facility] [address] Lab (1st floor, no room number) [place] [address], [facility] * (ABNORMAL) Comprehensive metabolic panel (09/01/2023 10:23 PM CDT) Sodium 135 135 - 145 mmol/L 09/01/2023 10:48 PM CDT LABORATORY Potassium 3.9 3.4 - 5.3 mmol/L 09/01/2023 10:48 PM CDT LABORATORY Carbon Dioxide (CO2) 21(L) 22 - 29 mmol/L 09/01/2023 10:48 PM CDT LABORATORY Anion Gap 12 7 - 15 mmol/L 09/01/2023 10:48 PM CDT [facility] Urea Nitrogen 4.9(L) 6.0 - 20.0 mg/dL 09/01/2023 10:48 PM CDT LABORATORY Creatinine 0.62 0.51 - 0.95 mg/dL 09/01/2023 10:48 PM CDT LABORATORY GFR Estimate >90 >60 mL/min/1.7 3m2 [...] - 5.2 g/dL 09/01/2023 10:48 PM CDT [facility] Bilirubin Total 0.6 <=1.2 mg/dL 09/01/2023 10:48 PM CDT [facility] Blood BLOOD SPECIMEN / Unknown Venipuncture / Unknown 09/01/2023 10:23 PM CDT 09/01/2023 10:26 PM CDT Tricia Gregg DO LAB - BLOOD ORDERA BLES Performing Organization Address City/State/[facility] Co de Phone Number [facility] [address] Lab (1st floor, no room number) [place] [address], [facility] documented in this encounter Visit Diagnoses Diagnosis Constipation, unspecified constipation type Abdominal pain, unspecified abdominal location documented in this encounter Administered Medications Inactive Administered Medications - up to 3 most recent administrations Medication Order MAR Action Action Date Dose Rate Site famotidine (PEPCID) injection 20 mg 20 mg, Intravenous, Administer over 2 Minutes, ONCE, On Shellie 09/01/23 at 2250, For 1 dose, For ordered IV doses 1-20 mg, give IV Push diluted with 5-10 mL NS over a minimum of 2 minutes. $Given 09/01/2023 10:54 PM CDT 20 mg documented in this encounter Active and Recently Administered Medications Times are shown in CDT. Scheduled Medication Order 08/30/2023 08/31/2023 09/01/2023 famotidine (PEPCID) injection 20 mg (COMPLETED) 20 mg, Intravenous, Administer over 2 Minutes, ONCE, On Shellie 09/01/23 at 2250, For 1 dose, For ordered IV doses 1-20 mg, give IV Push diluted with 5-10 mL NS over a minimum of 2 minutes. 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
--- OUTSIDE RECORDS SUMMARY | 2023-09-08 23:08 | XMS_ITS | Encounter Summary ---
Author Organization [place] Address [address] [facility] [place] [address] Care Team Providers Care Managing Broker Name Role Phone [facility] Primary Care Pro vider Mary Kate Herrera PA-C Unavailable Randal Joe MD Unavailable [phone] Encounter Details Date Type Department Care Team (Latest Contact Info) Description 08/22/2023 Travel Social History Tobacco Use Types Packs/Day Years [...] on file documented as of this encounter Plan of Treatment Not on file documented as of this encounter Visit Diagnoses Not on filedocumented in this encounter Additional Health Concerns Assessment Noted Time PHQ-9 Depression Total Score: 6 02/07/20 21 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
--- OUTSIDE RECORDS SUMMARY | 2023-09-08 23:08 | XMS_ITS | Encounter Summary ---
Author Organization [place] Address [address] [facility] [place] [address] Care Team Providers Care Executive Staff Assistant Name Role Phone Clinic, [facility] Primary Care Pro vider Mary Kate Herrera PA-C Unavailable Randal Joe MD Unavailable [phone] Reason for Visit * Reason Comments Rectal Bleeding Encounter Details Date Type Department Care Team (Late st Contact Info) Description 08/28/2023 4:36 AM CDT - 08/28/2023 6:[address] [facility] Emergency Dept [address] [place] [address] Tricia Gregg DO [facility] [address] [place] [address] Domingo Epstein MD [facility] [address] [place], [place] [id number] Abdominal pain during , antepartum Discharge Disposition: Home or Self Care Social [...] Sign Reading Time Taken Comments Blood Pressure 128/63 08/28/2023 4:28 AM CDT Pulse 85 08/28/2023 4:28 AM CDT Temperature 37.1 ??C (98.7 ??F) 08/28/2023 4:28 AM CD T Respiratory Rate 20 08/28/2023 4:28 AM CDT Oxygen Saturation 100% 08/28/2023 4:28 AM CDT Inhaled Oxygen Concentration - - Weight 85.7 kg (188 lb 15 oz) 08/28/2023 4:28 AM CDT Height - - Body Mass Index 29.59 08/22/2023 9:53 AM CDT documented in this encounter Discharge Instructions * Discharge Instructions* Domingo Epstein MD - 08/28/2023 6:28 AM CDT Please avoid excess laxatives. Your stool tested negative for blood and we suspect color change dueto food and laxatives. Please increase fiber in diet, but avoid colace AND miralax. Plese return with severe increase in abdominal pain, vaginal bleeding, fever or other concerns. documented in this encounter Medications at Time of Discharge Medication Sig Dispensed Refills Start Date End Date hydrOXYzine (ATARAX) 25 MG tablet Take 25 mg by mouth nightly as needed 05/28/2022 Vit-Fe Fumarate-FA ( PLUS) 27-1 MG TABS Take 1 tablet by mouth daily promethazine (PHENERGAN) 25 MG tablet Take 25 mg by mouth every 6 hours as needed for nausea VITAMIN D3 50 MCG (1999 UT) tablet Take 1 tablet by mouth daily nitroFURantoin macrocrystal-monohydrat e (MACROBID) 100 MG capsule Take 1 capsule (100 mg) by mouth 2 times daily for 7 days 14 capsule 08/22/2023 08/29/2023 documented as of this encounter ED Notes * Dorys Graves RN - 08/28/2023 4:26 AM CDT Pt to ER with c/o abd pain with bloody stool, pt is 17 weeks preg , pt did states that she ate a lot of cranberries and blueberries pt also states that she is on a low dose ASA * Domingo Epstein MD - 08/28/2023 4:24 AM CDT Emergency Department Note History of Present Illness Chief Complaint Rectal Bleeding HPI Alisia Velasquez is a 38 year old female who presents with abdominal pain. Patient is a 38-year-old female who presents stating that she was here few days ago told she was constipated. Started Colace and MiraLAX. Is also been eating fruit. Increase fiber in her diet. Patient is cramp-like lower abdominal pain she had a large bowel movement that was colored dark and presents to the emergency room due to dark stool. No recent alcohol use. No gross bloody vomit. No vaginal bleeding. Is known to be 17 weeks . Independent Historian None Review of External Notes Past Medical History Medical History and Problem List Past Medical History: Diagnosis Date Anxiety Arthritis Depressive disorder Medications hydrOXYzine (ATARAX) 25 MG tablet nitroFURantoin macrocrystal-monohydrate (MACROBID) 100 MG capsule Vit-Fe Fumarate-FA ( PLUS) 27-1 MG TABS promethazine (PHENERGAN) 25 MG tablet VITAMIN D3 50 MCG (1999) tablet Surgical History Past Surgical History: Procedure Laterality Date APPENDECTOMY 2002 DILATION AND CURETTAGE SUCTION WITH ULTRASOUND GUIDANCE N/A 12/27/2022 Procedure: suction dilation and curettage with ultrasound guidance; Surgeon: Miranda Metzger DO; Location: OR Physical Exam Patient Vitals for the past 24 hrs: BP Temp Temp src Pulse Resp SpO2 Weight 08/28/23 0428 128/63 98.7 ??F (37.1 ??C) Temporal 85 20 100 % 85.7 kg (188 lb 15 oz) Physical Exam Vitals reviewed. HENT: Head: Normocephalic. Eyes: Pupils: Pupils are equal, round, and reactive to light. Cardiovascular: Rate and Rhythm: Normal rate. Abdominal: General: Abdomen is flat. Bowel sounds are normal. Musculoskeletal: General: Normal range of motion. Skin: General: Skin is warm. Capillary Refill: Capillary refill takes less than 2 seconds. Neurological: General: No focal deficit present. Mental Status: She is alert. Psychiatric: Mood and Affect: Mood normal. heart tones measured by the nurse and was 157. Diagnostics Lab Results Labs Ordered and Resulted from Time of ED Arrival to Time of ED Departure COMPREHENSIVE METABOLIC PANEL - Abnormal Result Value Sodium 137 Potassium 3.8 Carbon Dioxide (CO2) 21 (*) Anion Gap 13 Urea Nitrogen 4.0 (*) Creatinine 0.62 GFR Estimate >90 Calcium 9.2 Chloride 103 Glucose 97 Alkaline Phosphatase 50 AST 11 ALT 9 Protein Total 7.0 Albumin 4.0 Bilirubin Total 0.6 OCCULT BLOOD STOOL - Normal Occult Blood Negative CBC WITH PLATELETS AND DIFFERENTIAL WBC Count 10.5 RBC Count 4.11 Hemoglobin 12.3 Hematocrit 36.6 MCV 89 MCH 29.9 MCHC 33.6 RDW 12.5 Platelet Count 229 % Neutrophils 71 % Lymphocytes 19 % Monocytes 8 % Eosinophils 1 % Basophils 0 % Immature Granulocytes 1 NRBCs per 100 WBC 0 Absolute Neutrophils 7.4 Absolute Lymphocytes 2.0 Absolute Monocytes 0.9 Absolute Eosinophils 0.1 Absolute Basophils 0.0 Absolute Immature Granulocytes 0.1 Absolute NRBCs 0.0 Imaging No orders to display Independent Interpretation None ED Course Medications Administered Medications acetaminophen (TYLENOL) tablet 650 mg (has no administration in time range) sodium chloride 0.9% BOLUS 1,000 mL (1,000 mLs Intravenous $New Bag 08/28/23 0209) Procedures Procedures Discussion of Management None ED Course Optional/Additional Documentation None Medical Decision Making / Diagnosis [facility] Diagnoses: and None MIPS None [facility] Alisia Velasquez is a 38 year old female who is 17 weeks who presents with abdominal pain and dark stool. Patient was recently seen in the emergency room. It with constipation. Was placed on Colace and also is using MiraLAX. Also increasing fiber in the diet. Patient had a large bowel movementthat was discolored dark and presents to the emergency room for assessment she has cramp- like left-sided abdominal pain. She is well-appearing doubt GI bleeding. Stool test negative for blood and hemoglobin is normal suspect discoloration due to either laxative use or diet. Did consider diverticulitis however patient is unable to be imaged suspect more due to cramp-like pain functional abdominal p ain related to overstimulation of the gut. Patient is asked to reduce Colace and MiraLAX as long asshe is having regular bowel movements and return with worsening condition patient was discharged home in stable condition. Disposition The patient was discharged. Diagnosis ICD-10-CM 1. Abdominal pain during , antepartum O26.899 R10.9 Discharge Medications Discharge Medication List as of 08/28/2023 6:30 AM MD Lucian Trujillo Brian Samuel, MD 08/28/23 0813 documented in this encounter Plan of Treatment Not on file documented as of this encounter Procedures Procedure Name Priority Date/Time Associated Diagnosis Comments OCCULT BLOOD STOOL STAT 08/28/2023 5: 19 AM CDT EXTRA TUBE STAT 08/28/2023 4:35 AM CDT EXTRA RED TOP TUBE STAT 08/28/2023 4: 35 AM CDT EXTRA BLUE TOP TUBE STAT 08/28/2023 4 :35 AM CDT CBC WITH PLATELETS AND DIFFERENTIAL STAT 08/28/2023 4:35 AM CDT CBC WITH PLATELETS & DIFFERENTIAL STAT 08/28/2023 4:35 AM CDT COMPREHENSIVE METABOLIC PANEL STAT 08/28/2023 4:35 AM CDT documented in this encounter Results * Occult blood stool (08/28/2023 5:19 AM CDT) Pathologist [facility] Occult Blood Negative Negative [facility] 08/28/2023 5:25 AM CDT [facility] Stool RECTAL CONTENTS / Unknown Non-blood Collection / Unknown 08/28/2023 5:19 AM CDT 08/28/2023 5:22 AM CDT Tricia Gregg DO LAB - STOOLS ORDER [facility] Lab [address] Lab (1st floor, no room number) [address] * Extra Red Top Tube (08/28/2023 4:35 AM CDT) Hold Specimen [facility] 08/28/2023 5:46 AM CDT [facility] Blood STRUCTURE OF LEFT UPPER LIMB / Unknown Venipuncture / Unknown 08/28/2023 4:35 AM CDT 08/28/2023 4:43 AM CDT Tricia Gregg DO LAB - BLOOD ORDERA BLES Performing Organization Address City/[facility]/ZIP Co de Phone Number [facility] Lab [address] Lab (1st floor, no room number) [address] * Extra Blue Top Tube (08/28/2023 4:35 AM CDT) Hold Specimen [facility] 08/28/2023 5:46 AM CDT [facility] Blood STRUCTURE OF LEFT UPPER LIMB / Unknown Venipuncture / Unknown 08/28/2023 4:35 AM CDT 08/28/2023 4:43 AM CDT Tricia Gregg DO LAB - BLOOD ORDERA BLES [facility] Care Lab [address] Lab (1st floor, no room number) [address] * CBC with platelets and differential (08/28/2023 4:35 AM CDT) WBC Count 10.5 4.0 - 11.0 10e3/uL 08/28/2023 4:45 AM CDT [facility] RBC Count 4.11 3.80 - 5.20 10e6/uL 08/28/2023 4:45 AM CDT [facility] Hemoglobin 12.3 11.7 - 15.7 g/dL 08/28/2023 4:45 AM CDT [facility] Hematocrit 36.6 35.0 - 47.0 % 08/28/2023 4:45 AM CDT [facility] MCV 89 78 - 100 fL 08/28/2023 4:45 AM CDT [facility] MCH 29.9 26.5 - 33.0 pg 08/28/2023 4:45 AM CDT [facility] MCHC 33.6 31.5 - 36.5 g/dL 08/28/2023 4:45 AM CDT [facility] RDW 12.5 10.0 - 15.0 % 08/28/2023 4:45 AM CDT [facility] Platelet Count 229 150 - 450 10e3/uL 08/28/2023 4:45 AM CDT [facility] % Neutrophils 71 % 08/28/2023 4:45 AM CDT [facility] % Lymphocytes 19 % 08/28/2023 4:45 AM CDT [facility] % Monocytes 8 % 08/28/2023 4:45 AM CDT [facility] % Eosinophils 1 % 08/28/2023 4:45 AM CDT [facility] % Basophils 0 % 08/28/2023 4:45 AM CDT [facility] % Immature Granulocytes 1 % 08/28/2023 4:45 AM CDT [facility] NRBCs per 100 WBC 0 <1 /100 024 4:45 AM CDT [facility] Absolute Neutrophils 7.4 1.6 - 8.3 10e3/uL 08/28/2023 4:45 AM CDT [facility] Absolute Lymphocytes 2.0 0.8 - 5.3 10e3/uL 08/28/2023 4:45 AM CDT [facility] Absolute Monocytes 0.9 0.0 - 1.3 10e3/uL 08/28/2023 4:45 AM CDT [facility] Absolute Eosinophils 0.1 0.0 - 0.7 10e3/uL 08/28/2023 4:45 AM CDT [facility] Absolute Basophils 0.0 0.0 - 0.2 10e3/uL 08/28/2023 4:45 AM CDT [facility] Absolute Immature Granulocytes 0.1 <=0.4 10e3/uL 08/28/2023 4:45 AM CDT [facility] Absolute NRBCs 0.0 10e3/uL 08/28/2023 4:45 AM CDT [facility] Blood STRUCTURE OF LEFT UPPER LIMB / Unknown Venipuncture / Unknown 08/28/2023 4:35 AM CDT 08/28/2023 4:43 AM CDT Tricia Antony Gregg LAB - BLOOD ORDERA BLES [facility] Lab [address] Lab (1st floor, no room number) [place] [address], [facility] * (ABNORMAL) Comprehensive metabolic panel (08/28/2023 4:35 AM CDT) Sodium 137 135 - 145 mmol/L 08/28/2023 5:10 AM CDT LABORATORY Potassium 3.8 3.4 - 5.3 mmol/L 08/28/2023 5:10 AM CDT LABORATORY Carbon Dioxide (CO2) 21(L) 22 - 29 mmol/L 08/28/2023 5:10 AM CDT [facility] Anion Gap 13 7 - 15 mmol/L 08/28/2023 5:10 AM CDT [facility] Urea Nitrogen 4.0(L) 6.0 - 20.0 mg/dL 08/28/2023 5:10 AM CDT LABORATORY Creatinine 0.62 0.51 - 0.95 mg/dL 08/28/2023 5:10 AM CDT [facility] GFR Estimate >90 >60 mL/min/1.7 3m2 08/28/2023 5:10 AM CDT [facility] Comment:eGFR calculated usin 2020 CKD-EPI equation. Calcium 9.2 8.8 - 10.4 mg/dL 08/28/2023 5:10 AM CDT [facility] Comment:Reference intervals for this test were updated on 08/23/2023 to reflect our healthy population more accurately. There may be differences in the flagging of prior results with similar values performed with this method. Those prior results can be interpreted in the context of the updated reference intervals. Chloride 103 98 - 107 mmol/L 08/28/2023 5:10 AM CDT LABORATORY Glucose 97 70 - 99 mg/dL 08/28/2023 5:10 AM CDT [facility] Alkaline Phosphatase 50 40 - 150 U/L 08/28/2023 5:10 AM CDT [facility] AST 11 0 - 45 U/L 08/28/2023 5:10 AM CDT [facility] ALT 9 0 - 50 U/L 08/28/2023 5:10 AM CDT [facility] Protein Total 7.0 6.4 - 8.3 g/dL 08/28/2023 5:10 AM CDT [facility] Albumin 4.0 3.5 - 5.2 g/dL 08/28/2023 5:10 AM CDT [facility] Bilirubin Total 0.6 <=1.2 mg/dL 08/28/2023 5:10 AM CDT [facility] Blood STRUCTURE OF LEFT UPPER LIMB / Unknown Venipuncture / Unknown 08/28/2023 4:35 AM CDT 08/28/2023 4:43 AM CDT Tricia Gregg DO LAB - BLOOD ORDERA BLES LAB[facility] Lab [address] [facility] Lab (1st floor, no room number) [place] [address] documented in this encounter Visit Diagnoses Diagnosis Abdominal pain during , antepartum documented in this encounter Administered Medications Inactive Administered Medications - up to 3 most recent administrations Medication Order MAR Action Action Date Dose Rate Site acetaminophen (TYLENOL) tablet 650 mg 650 mg, Oral, ONCE, On 08/28/23 at 0615, For 1 dose, Maximum acetaminophen dose from all sources = 75 mg/kg/day not to exceed 4 grams/day. $Given 08/28/2023 6:21 AM CDT 650 mg sodium chloride 0.9% BOLUS 1,000 mL Intravenous, 1,000 mL, ONCE, at 1,000 mL/hr, Administer over 1 Hours, On 08/28/23 at 0435, For 1 dose $New Bag 08/28/2023 4:50 AM CDT 1,000 mLs 1000 mL/hr documented in this encounter Active and Recently Administered Medications Times are shown in CDT. Scheduled Medication Order 08/26/2023 08/27/2023 08/28/2023 acetaminophen (TYLENOL) tablet 650 mg (COMPLETED) 650 mg, Oral, ONCE, On 08/28/23 at 0615, For 1 dose, Maximum acetaminophen dose from all sources = 75 mg/kg/day not to exceed 4 grams/day. 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
--- OUTSIDE RECORDS SUMMARY | 2023-09-08 23:08 | XMS_ITS | Encounter Summary ---
Author Organization [place] Address [address] [facility] 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
--- OUTSIDE RECORDS SUMMARY | 2023-09-08 23:08 | XMS_ITS | Encounter Summary ---
Author Organization [place] Address [address] [facility] 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
--- OUTSIDE RECORDS SUMMARY | 2023-09-08 23:08 | XMS_ITS | Encounter Summary ---
Author Organization [place] Address [address] [place] [address] Care Team Providers Care Astronomy Instructor Name Role Phone [facility], [facility] Primary Care Pro vider Mary Kate Herrera PA-C Unavailable Randal Joe MD Unavailable Reason for Visit * Reason Comments Abdominal Pain Encounter Details Date Type Department Care Team (Latest Contact Info) Description 09/01/2023 8:42 PM CDT - 09/01/2023 9:37 PM CDT Hospital Encounter [facility] [address] [place] [place] [id number] Annika Kirkland MD [facility] [address] [place] [address] Discharge Disposition: Home or Self Care Social [...] Sign Reading Time Taken Comments Blood Pressure 121/77 09/01/2023 9:00 PM CDT Pulse 70 09/01/2023 9:00 PM CDT Temperature 36.6 ??C (97.9 ??F) 09/01/2023 9:00 PM CD T Respiratory Rate 16 09/01/2023 9:00 PM CDT Oxygen Saturation 98% 09/01/2023 9:00 PM CDT Inhaled Oxygen Concentration - - Weight 82.7 kg (182 lb 5.1 oz) 09/01/2023 8:45 P M CDT Height - - Body Mass Index 30.34 08/30/2023 1:37 PM CDT documented in this encounter Discharge Instructions * Discharge Instructions* Germania Em RN - 09/01/2023 9:32 PM CDT Images from the original note were not included. Learning About When to Call Your Doctor During (Up to 20 Weeks) Overview It's common to have concerns about what might be a problem during your . Most pregnancies don't have any serious problems. But it's still important to know when to call your doctor if you have certain symptoms. These are general suggestions. Your doctor may give you some more information about when to call. When to call your doctor (up to 20 weeks) Call 911 anytime you think you may need emergency care. For example, call if: You have severe vaginal bleeding. This means you are soaking through a pad each hour for 2 or more hours. You have chest pain, are short of breath, or cough up blood. You have sudden, severe pain in your belly. You passed out (lost consciousness). Call your doctor now or seek immediate medical care if: You have a fever. You have vaginal bleeding. You are dizzy or lightheaded, or you feel like you may faint. You have signs of a blood clot in your leg (called a deep vein thrombosis), such as: Pain in the calf, back of the knee, thigh, or groin. Swelling in your leg or groin. A color change on the leg or groin. The skin may be reddish or purplish, depending on your usual skin color. You have symptoms of a urinary tract infection. These may include: Pain or burning when you urinate. A frequent need to urinate without being able to pass much urine. Pain in the flank, which is just below the rib cage and above the waist on either side of the back. Blood in your urine. You have belly pain. You think you are having contractions. Watch closely for changes in your health, and be sure to contact your doctor if: You have vaginal discharge that smells bad. You feel sad, anxious, or hopeless for more than a few days. You have other concerns about your . Follow-up care is a mahoney part of your treatment and safety. Be sure to make and go to all appointments, and call your doctor if you are having problems. It's also a good idea to know your test resultsand keep a list of the medicines you take. Where can you learn more? Go to https://www.[employer].net/patiented Enter G674 in the search box to learn more about Learning About When to Call Your Doctor During (Up to 20 Weeks). Current as of: August 16, 2022 Content Version: 14.0 ?? [employer]. Care instructions adapted under license by your healthcare professional. If you have questions about a medical condition or this instruction, always ask your healthcare professional. [employer] disclaims any warranty or liability for your use of this information. documented in this encounter Medications at Time [...] tablet Take 1 tablet by mouth daily sucralfate (CARAFATE) 1 GM tablet Take 1 tablet (1 g) by mouth 4 times daily for 5 days 20 tablet 08/30/2023 09/04/2023 documented as of this encounter Miscellaneous Notes * Plan of Care - Germania Em RN - 09/01/2023 9:36 PM CDT Patient's After Visit Summary was reviewed with patient and/or significant other. Patient verbalized understanding of After Visit Summary, recommended follow up and was given an opportunity to ask questions. Discharge medications sent home with patient/family: Not applicable Discharged with significant other to ED for further evaluation. * Provider Notification - Germania Em RN - 09/01/2023 9:24 PM CDT Communication with Dr. Kirkland in department. Notified of arrival of 17w5 with abdominal pain, has been struggling with constipation, seen Dr. Lopez in clinic today. Denies vaginal bleeding, LOF or contractions. FHT 145bp, Noted new rash. No OB complaints, TORB to discharge and send to ED for further evaluation. * Plan of Care - Germania Em RN - 09/01/2023 9:10 PM CDT Doptones assessed and 145bpm Patient has a new rash on LUQ/Rib area. Desribes it as burning sensation. Bowel sounds present, hypoactive. * Care Plan - Germania Em RN - 09/01/2023 9:05 PM CDT Data: [facility] presented to [facility]: 09/01/2023 8:42 PM. Reason for maternal/ assessment is abdominal pain. Patient reports has been struggling with constipation/ GI symptoms for about a week including multiple ER visits, and visit today. . Patient denies uterine contractions, leaking of vaginal fluid/rupture of membranes, vaginal bleeding, pelvic pressure, nausea, vomiting, headache, visual disturbances, epigastric or RUQ pain, significant edema. . Patient is a Unknown . record reviewed. has been uncomplicated. Vital signs wnl. Support person is present. Action: Verbal consent for EFM. Triage assessment completed. Response: Patient verbalized agreement with plan. Will contact Dr. Kirkland with update and further orders. documented in this encounter Plan of Treatment Not on file documented as of this encounter Visit Diagnoses Diagnosis Encounter for triage in patient documented in this encounter Administered Medications Inactive Administered Medications - up to 3 most recent administrations Medication Order MAR Action Action Date Dose Rate Site lidocaine (LMX4) cream Topical, EVERY 1 HOUR PRN, pain, with VAD insertion, Starting on Shellie 09/01/23 at 2104, Apply at least 30 minutes prior to VAD insertion in divided doses as needed for size of site for insertion. MAX Dose: 2.5 g (?? of 5 g tube) Do NOT give if patient has a history of allergy to any local anesthetic or any ebonie product. Do NOT use both lidocaine intradermal/subcutaneous injection and the lidocaine cream on the same site., OB Preadmission lidocaine 1 % 0.1-1 mL 0.1-1 mL, Other, EVERY 1 HOUR PRN, mild pain with VAD insertion, Starting on Shellie 09/01/23 at 2104, MAX dose 1 mL subcutaneous OR intradermal along the side of the vein in divided doses as needed for VAD insertion. Do NOT give if patient has a history of allergy to any local anesthetic or any ebonie product. Do NOT use both lidocaine intradermal/subcutaneous injection and the lidocaine cream on the same site., OB Preadmission sodium chloride (PF) 0.9% PF flush 3 mL 3 mL, Intracatheter, EVERY 8 HOURS, First dose on Shellie 09/01/23 at 2130, to lock peripheral IV dormant line, OB Preadmission sodium chloride (PF) 0.9% PF flush 3 mL 3 mL, Intracatheter, EVERY 1 MIN PRN, line flush, other, to ensure patency or to lock dormant line, Starting on Shellie 09/01/23 at 2104, OB Preadmission documented in this encounter Active and Recently Administered Medications Times are shown in CDT. Scheduled Medication Order 08/30/2023 08/31/2023 09/01/2023 sodium chloride (PF) 0.9% PF flush 3 mL 3 mL, Intracatheter, EVERY 8 HOURS, First dose on Shellie 09/01/23 at 2130, to lock peripheral IV dormant line, OB Preadmission 2129 (Canceled Entry - Provider: Orders Generic Provider - Comment: Automatically canceled at discontinue of medication order) PRN Medication Order 08/30/2023 08/31/2023 09/01/2023 lidocaine (LMX4) cream Topical, EVERY 1 HOUR PRN, pain, with VAD insertion, Starting on Shellie 09/01/23 at 2104, Apply at least 30 minutes prior to VAD insertion in divided doses as needed for size of site for insertion. MAX Dose: 2.5 g (?? of 5 g tube) Do NOT give if patient has a history of allergy to any local anesthetic or any ebonie product. Do NOT use both lidocaine intradermal/subcutaneous injection and the lidocaine cream on the same site., OB Preadmission lidocaine 1 % 0.1-1 mL 0.1-1 mL, Other, EVERY 1 HOUR PRN, mild pain with VAD insertion, Starting on Shellie 09/01/23 at 2104, MAX dose 1 mL subcutaneous OR intradermal along the side of the vein in divided doses as needed for VAD insertion. Do NOT give if patient has a history of allergy to any local anesthetic or any ebonie product. 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
--- OUTSIDE RECORDS SUMMARY | 2023-09-08 23:08 | XMS_ITS | Referral Summary ---
Author Organization [facility] Address [address] [facility] [place] [address] Care Team Providers Care Desk Director Name Role Phone [facility], [facility] Pro vider Mary Kate Herrera PA-C Unavailable Randal Joe MD Unavailable [phone] Encounters Date Type Department Care Team Description 09/01/2023 10:08 PM CDT - 09/01/2023 11:[address] [facility] Emergency Dept [address] [place] [address] Tricia Gregg DO Constipation, unspecified constipation type; Abdominal pain, unspecified abdominal location Discharge Disposition: Home or Self Care 09/01/2023 Travel 09/01/2023 8:42 PM CDT - 09/01/2023 9:37 PM CDT Hospital Encounter [facility] [address] [place] [address] Annika Kirkland MD Discharge Disposition: Home or Self Care 08/30/2023 Travel 08/30/2023 4:10 PM CDT - 08/30/2023 7:[address] [facility] Emergency Dept [address] [place] [address] Phyllis Walden PAJohnC Abdominal pain during in second trimester; Hemorrhagic cyst of left ovary Discharge Disposition: Home or Self Care 08/28/2023 Travel 08/28/2023 4:36 AM CDT - 08/28/2023 6:[address] [facility] Emergency Dept [address] [place] [address] Tricia Gregg DO Goodman, Brian Samuel, MD Abdominal pain during , antepartum Discharge Disposition: Home or Self Care 08/22/2023 Travel 08/22/2023 11:10 AM CDT - 08/22/2023 1:[address] [facility] Emergency Dept [address] [place] [address] Mai Headley, VJ Constipation during in second trimester; UTI in , second trimester Discharge Disposition: Home or Self Care 07/18/2023 Travel 07/18/2023 5:21 AM CDT - 07/18/2023 9:[address] [facility] Emergency Dept [address] [place] [address] Kendall Omalley MD Nausea and vomiting during Discharge Disposition: Home or Self Care 07/16/2023 11:43 PM CDT - 07/17/2023 1:[address] [facility] Emergency Dept [address] [place] [address] Louie Allen MD Constipation, unspecified constipation type Discharge Disposition: Home or Self Care 07/08/2023 Travel 07/08/2023 8:01 PM CDT - 07/08/2023 10:[address] [facility] Emergency Dept [address] [place] [address] Shekhar Rashid MD Nausea; Anxiety; First trimester Discharge Disposition: Home or Self Care 07/05/2023 Travel 07/05/2023 2:36 AM CDT - 07/05/2023 5:[address] [facility] Emergency Dept [address] [place] [address] Miranda Estrada MD Vaginal bleeding affecting early ; Subchorionic hematoma in first trimester, single or unspecified fetus Discharge Disposition: Home or Self Care 06/26/2023 Travel 06/26/2023 6:36 PM CDT - 06/26/2023 8:[address] [facility] Emergency Dept [address] [place] [address] Ivan Grace PA-C Subchorionic hemorrhage of placenta in first trimester Discharge Disposition: Home or Self Care 06/11/2023 Travel 06/11/2023 10:32 AM CDT - 06/11/2023 1:[address] [facility] Emergency Dept [address] [place] [address] Brianda Ratliff PA-C First trimester Discharge Disposition: Home or Self Care from Last 3 Months Allergies Active Allergy Reactions Criticality Noted Date [...] 07/25/2023 Overview: x DX V65.8 REPLACED WITH 62219 [facility] LONGTERM (05/15/2012) 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 7 Supervision of normal first 08/06/2005 01/24/2006 Contraception 09/06/2007 Immunizations Name Administration Dates Next Due Influenza Vaccine >6 months,quad, PF 12/21/2019 Mantoux Tuberculin Skin Test 05/14/2009 TDAP Vaccine (Adacel) 02/10/2017,07/11/2006 Twinrix A/B 01/22/2010,07/15/2009,05/14/2009 Social History Tobacco Use Types Packs/Day Years [...] 08/30/2023 1:37 PM CDT Plan of Treatment Not on file Procedures Procedure Name Priority Date/Time Associated Diagnosis [...] CDT Routine general medical examination at a health care facility PAP IMAGED THIN LAYER SCREEN Routine 02/10/2017 8:03 AM PRESSURE STEAMER TENDER Screening for malignant neoplasm of cervix HPV HIGH RISK TYPES DNA CERVICAL Routine 02/10/2017 7:52 AM PRESSURE STEAMER TENDER Screening for malignant neoplasm of cervix HEPATITIS [...] Trace(A) Negative mg/dL 09/01/2023 11:30 PM CDT [facility] Specific [place] Urine 1.032 1.003 - 1.035 09/01/2023 11:30 PM CDT [facility] Blood Urine Large(A) Negative 09/01/2023 11:30 PM CDT [facility] pH Urine 6.5 5.0 - 7.0 09/01/2023 11:30 PM CDT [facility] Protein Albumin Urine 30(A) Negative mg/dL 09/01/2023 11:30 PM CDT [facility] Urobilinogen Urine Normal Normal, 2.0 mg/dL 09/01/2023 11:30 PM CDT [facility] Nitrite Urine Negative Negative 09/01/2023 11:30 [...] LAB - URINE ORDERA BLES [facility] [address] Lab (1st floor, no room number) [place] [address], [facility] * (ABNORMAL) CBC with platelets and [...] LAB - BLOOD ORDERA BLES [facility] [address] Lab (1st floor, no room number) [place] [address], [facility] * Lipase (09/01/2023 10:23 PM CDT) Only the most recent of5 resultswithin the time period is included. Lipase 31 13 - 60 U/L 09/01/2023 10:48 PM CDT [facility] Blood BLOOD SPECIMEN / Unknown Venipuncture / Unknown 09/01/2023 10:23 PM CDT 09/01/2023 10:26 PM CDT Tricia Gregg LAB - BLOOD ORDERA BLES LABORATORY [facility] [address] Lab (1st floor, no room number) [place] [address], [facility] * (ABNORMAL) Comprehensive metabolic panel (09/01/2023 10:23 [...] - 15 mmol/L 09/01/2023 10:48 PM CDT LABORATORY Urea Nitrogen 4.9(L) 6.0 - 20.0 mg/dL 09/01/2023 10:48 PM CDT LABORATORY Creatinine 0.62 0.51 - 0.95 mg/dL 09/01/2023 10:48 PM CDT LABORATORY GFR Estimate >90 >60 mL/min/1.7 3m2 09/01/2023 10:48 PM CDT LABORATORY Comment:eGFR calculated 2020 CKD-EPI equation. Calcium 9.4 8.8 - 10.4 mg/dL 09/01/2023 10:48 PM CDT LABORATORY Comment:Reference intervals for this test were [...] - 99 mg/dL 09/01/2023 10:48 PM CDT LABORATORY Alkaline Phosphatase 52 40 - 150 [...] DO LAB - BLOOD ORDERA BLES LABORATORY [facility] [address] Lab (1st floor, no room number) [place] [address] * MR Abdomen w/o Contrast (08/30/2023 6:48 PM CDT) Anatomical Region Laterality Modality Abdomen/Pelvis, SUBRAD MR BODY, UMP MR BODY, RAD MR Magnetic Resonance 08/30/2023 6:48 PM CDT Impressions 08/30/2023 7:09 PM CDT IMPRESSION: 1. ??No definite visualized explanation for patient's symptoms. Narrative 08/30/2023 7:09 PM CDT EXAM: MR ABDOMEN W/O CONTRAST LOCATION: [facility] DATE: 08/30/2023 INDICATION: Eval of LUQ [...] 08/30/2023 EXAM: MR ABDOMEN W/O CONTRAST LOCATION: [facility] DATE: 08/30/2023 INDICATION: Eval of LUQ [...] OB LIMITED >14 WEEKS WO MEASUREMENT LOCATION: [facility] DATE: 08/30/2023 INDICATION: Evaluation of lower [...] OB LIMITED >14 WEEKS WO MEASUREMENT LOCATION: [facility] DATE: 08/30/2023 INDICATION: Evaluation of lower abdominal pain, dec movement, [id number] weeks COMPARISON: Ultrasound 07/05/2023 TECHNIQUE: Transabdominal and [...] Light Yellow, Yellow 08/30/2023 2:40 PM CDT [facility] Appearance Urine Clear Clear 08/30/19 24 2:40 PM CDT [facility] Glucose Urine Negative Negative mg/dL 08/30/2023 2:40 PM CDT [facility] Bilirubin Urine Negative Negative 2:40 PM CDT [facility] Ketones Urine Trace(A) Negative mg/dL 08/30/2023 2:40 PM CDT [facility] Specific [place] Urine 1.014 1.003 - 1.035 08/30/2023 2:40 PM CDT [facility] Blood Urine Negative Negative 08/30/2023 2:40 PM CDT [facility] pH Urine 6.5 5.0 - 7.0 08/30/2023 2:40 PM CDT [facility] Protein Albumin Urine Negative Negative mg/dL 08/30/2023 2:40 PM CDT [facility] Urobilinogen Urine Normal Normal, 2.0 mg/dL 08/30/2023 2:40 PM CDT [facility] Nitrite Urine Negative Negative 08/30/2023 2:40 PM CDT [facility] Leukocyte Esterase Urine Negative Negative 08/30/2023 2:40 PM CDT [facility] Mucus Urine Present(A) None Seen /LPF 08/30/2023 2:40 PM CDT [facility] RBC Urine 2 <=2 /HPF 08/30/2023 2:40 PM CDT [facility] WBC Urine <1 <=5 /HPF 08/30/2023 2:40 PM CDT [facility] Squamous Epithelials Urine 1 <=1 /HPF 08/30/2023 2:40 PM CDT LABORATORY Urine URINE SPECIMEN OBTAINED BY CLEAN CATCH PROCEDURE / Unknown Non-blood Collection / Unknown 08/30/2023 2:16 PM CDT 08/30/2023 2:29 PM CDT Narrative LABORATORY - 08/30/2023 2:40 PM CDT Urine Culture not indicated Phyllis Walden PA-C LAB - URINE ORD ERABLES [facility] Lab [address] Lab (1st floor, no room number) [address] * Extra Red Top Tube (08/30/2023 2:12 PM CDT) Only the most recent of5 resultswithin the time period is included. Hold Specimen [facility] 08/30/2023 3:31 PM CDT LABORATORY Blood STRUCTURE OF LEFT UPPER LIMB / Unknown Venipuncture / Unknown 08/30/2023 2:12 PM CDT 08/30/2023 2:29 PM CDT Phyllis Walden PA-C LAB - BLOOD ORD ERABLES [facility] Care Lab [address] Lab (1st floor, no room number) [address] * Extra Blue Top Tube (08/30/2023 2:12 PM CDT) Only the most recent of4 resultswithin the time period is included. Hold Specimen [facility] 08/30/2023 3:31 PM CDT LABORATORY Blood STRUCTURE OF LEFT UPPER LIMB / Unknown Venipuncture / Unknown 08/30/2023 2:12 PM CDT 08/30/2023 2:29 PM CDT Phyllis Walden PA-C LAB - BLOOD ORD ERABLES [facility] Care Lab [address] Lab (1st floor, no room number) [place] [address] * Occult blood stool (08/28/2023 5:19 AM CDT) Occult Blood Negative Negative NICOLLE 08/28/2023 5:25 AM CDT LABORATORY Stool RECTAL CONTENTS / Unknown Non-blood Collection / Unknown 08/28/2023 5:19 AM CDT 08/28/2023 5:22 AM CDT Tricia Gregg DO LAB - STOOLS ORDER JOHN [facility] Care Lab [address] Lab (1st floor, no room number) [place] [address] * US OB < 14 Weeks Single (07/05/2023 4:40 AM CDT) Anatomical Region Laterality Modality Abdomen/Pelvis Ultrasound 07/05/2023 4:40 AM CDT Impressions 07/05/2023 4:43 AM CDT IMPRESSION: 1. ??Single living intrauterine gestation at 10 weeks 3 days by crown-rump length measurement, EDC 01/28/2024. 2. ??Small subchorionic hematoma measuring 2.4 cm. Narrative 07/05/2023 4:43 AM CDT EXAM: US OB < 14 WEEKS SINGLE-TRANSABDOMINAL LOCATION: [facility] DATE: 07/05/2023 INDICATION: Bleeding during . [...] US OB < 14 WEEKS SINGLE-TRANSABDOMINAL LOCATION: [facility] DATE: 07/05/2023 INDICATION: Bleeding during . [...] hematoma measuring 2.4 cm. Miranda Estrada MD [facility] ORDERABLES * Adult Type and Screen (07/05/2023 3:30 AM CDT) ABO/RH(D) A POS 07/05/2023 3:15 AM CDT RH BLOOD BANK Antibody Screen Negative Negative 07/05/2023 3:15 AM CDT RH BLOOD BANK SPECIMEN EXPIRATION DATE [id number] 07/05/2023 3:15 AM CDT [facility] B[facility] B[facility] Blood BLOOD SPECIMEN / Unknown Venipuncture / Unknown 07/05/2023 3:30 AM CDT 07/05/2023 3:34 AM CDT Miranda Estrada MD LAB - BLOOD BANK T EST ORDER Performing Organization Address City/[facility]/ZIP Co de Phone Number BLOOD BANK [address] [place] [address] * (ABNORMAL) HCG quantitative (07/05/2023 3:30 AM CDT) Only the most recent of3 resultswithin the time period is included. hCG Quantitative 53,109(H) <5 mIU/mL 07/05/19 4:59 AM CDT [facility] Comment: Adult: 0-5 mIU/mL for healthy non- person Neonates: Should be within normal ranges by 2 days after Blood BLOOD SPECIMEN / Unknown Venipuncture / Unknown 07/05/2023 3:30 AM CDT 07/05/2023 3:34 AM CDT Miranda Estrada MD LAB - BLOOD ORDERA BLES Performing Organization Address City/[facility]/ZIP Co de Phone Number LABORATORY [facility] Lab [address] [facility] Lab (1st floor, no room number) [place] [address] * US OB 1st Trimester W Transvaginal [...] 1ST TRIMESTER W TRANSVAGINAL W DOPPLER LOCATION: [facility] DATE: 06/26/2023 INDICATION: lower abdominal pain, [...] 1ST TRIMESTER W TRANSVAGINAL W DOPPLER LOCATION: [facility] DATE: 06/26/2023 INDICATION: lower abdominal pain, [...] the time period is included. Hold Specimen [facility] 06/26/2023 7:46 PM CDT LABORATORY Blood STRUCTURE OF LEFT UPPER LIMB / Unknown Venipuncture / Unknown 06/26/2023 6:27 PM CDT 06/26/2023 6:34 PM CDT Ivan Grace PA-C LAB - BLOOD ORDERABL ES [facility] LABORATORY [facility] [address] Lab (1st floor, no room number) [place] [address], [facility] * Basic metabolic panel (06/26/2023 6:22 [...] - 5.3 mmol/L 06/26/2023 6:59 PM CDT [facility] Chloride 102 98 - 107 mmol/L [...] - 10.0 mg/dL 06/26/2023 6:59 PM CDT LABORATORY Glucose 90 70 - 99 mg/dL 06/26/2023 6:59 PM CDT LABORATORY Blood STRUCTURE OF LEFT UPPER LIMB / Unknown Venipuncture / Unknown 06/26/2023 6:22 PM CDT 06/26/2023 6:35 PM CDT Ivan Grace PA-C LAB - BLOOD ORDERABL ES [facility] LABORATORY [facility] Lab [address] Lab (1st floor, no room number) [place] [address], [place] * US OB < 14 Weeks w Transvaginal (06/11/2023 11:28 AM CDT) Anatomical Region Laterality Modality Abdomen/Pelvis Ultrasound 06/11/2023 11:2 8 AM CDT Impressions 06/11/2023 11:50 AM CDT IMPRESSION: 1. ??Single living intrauterine gestation at 6 weeks 3 days, EDC 02/04/2024. Narrative 06/11/2023 11:50 AM CDT EXAM: US OB <14 WEEKS WITH TRANSVAGINAL SINGLE LOCATION: [facility] DATE: 06/11/2023 INDICATION: 6 weeks , [...] OB <14 WEEKS WITH TRANSVAGINAL SINGLE LOCATION: [facility] DATE: 06/11/2023 INDICATION: 6 weeks , [...] weeks 3 days, EDC02/04/2024. Brianda Ratliff PA-C [facility] ORDERABLES * (ABNORMAL) HCG QUALitative (blood) (06/11/2023 10:50 AM CDT) hCG Serum Qualitative Positive( A) Negative NICOLLE 06/11/2023 11:15 AM CDT [facility] Comment:This test is for scr eening purposes. Results should be interpreted along with the clinical picture. Confirmation testing is available if warranted by ordering [id number], HCG Quantitative . Blood STRUCTURE OF LEFT UPPER LIMB / Unknown Venipuncture / Unknown 06/11/2023 10:50 AM CDT 06/11/2023 10:56 AM CDT Brianda Ratliff PA-C LAB - BLOOD ORDERABL ES [facility] Acute [facility] Lab [address] Lab (1st floor, no room number) [place] [address], [facility] * (ABNORMAL) Lipid panel reflex to direct LDL Non-fasting (10/17/2018 1:31 PM CDT) Cholesterol 167 <200 mg/dL 10/18/2018 8:52 AM CDT [facility] Triglycerides 197(H) <150 mg/dL 10/18/2018 8:52 AM CDT [facility] Comment: Borderline high: ??150-199 mg/dl High: ? 200-499 mg/dl Very high: ? >499 mg/dl Non Fasting HDL Cholesterol 38(L) >49 mg/dL 9 9:10 AM CDT [facility] LDL Cholesterol Calculated 90 <100 mg/dL 10/18/2018 9:10 AM CDT [facility] Comment:Desirable: <100 mg/d l Non HDL Cholesterol 129 <130 mg/dL 10/18/2018 9:10 AM CDT [facility] Blood specimen (specimen) 10/17/2018 1:31 PM CDT 10/17/2018 1:32 PM CDT Kathy Ross PA-C LAB - BLOOD ORDERABLES [facility] [address] [place] [address] * Pap imaged thin layer screen with HPV - recommended age 30 - 65 years (select HPV order below) (02/10/2017 8:03 AM PRESSURE STEAMER TENDER) PAP SERENA Hodges Report Patient Name: ADAM VELASQUEZ MR#: [id number] Specimen #: [id number] Collected: 02/10/2017 Received: 02/11/2017 [...] and screened at [facility], [facility] CLINICAL HISTORY: LMP: 01/14/17 Previous normal pap Date of Last Pap: 12/14/13, Papanicolaou Test Limitations: ??Cervical cytology is a screening test with limited sensitivity; regular screening is critical for cancer prevention; Pap tests are primarily effective for the diagnosis/preventi on of squamous cell carcinoma, not adenocarcinomas or other cancers. TESTING LAB LOCATION: [address] ??[address] COLLECTION SITE: Client: ??[facility] Location: [facility] HODGES Cytologic material (specimen) 02/10/2017 8:03 AM PRESSURE STEAMER TENDER 02/11/2017 10:26 AM PRESSURE STEAMER TENDER Jered Barrow MD LAB - OPTIME CL INICAL SPECIMEN COPATH * HPV High Risk Types DNA Cervical (02/10/2017 7:52 AM PRESSURE STEAMER TENDER) HPV 16 DNA Negative NEG^Nega tive 02/16/2017 2:35 PM PRESSURE STEAMER TENDER [facility] HPV 18 DNA Negative NEG^Nega tive 02/16/2017 2:35 PM PRESSURE STEAMER TENDER [facility] Other HR HPV Negative NEG^Nega tive 02/16/2017 2:35 PM PRESSURE STEAMER TENDER [facility] Final Diagnosis This patient's sample is negative for HPV DNA. 02/16/2017 2:35 PM PRESSURE STEAMER TENDER [facility] Comment: This test was developed and its [...] Specimen Description Cervical Cells 02/15/2017 9:32 AM PRESSURE STEAMER TENDER [facility] Comment:[id number] Cervical Cells 02/10/2017 7: 52 AM PRESSURE STEAMER TENDER 02/10/2017 8:14 AM PRESSURE STEAMER TENDER Jered Barrow MD LAB - BLOOD ORD ERABLES [facility] [address] [place] [address] * Hepatitis C antibody (09/23/2011 1:54 PM CDT) Hepatitis C Antibody Negative NEG [facility] Blood specimen (specimen) 09/23/2011 1:54 PM CDT 09/23/2011 1:55 PM CDT Mary Clark MD LAB - BLOOD ORDERABL ES [facility] * HIV 1 and 2 Antibody (12/10/2010 11:34 AM CDT) HIV 1&2 Antibody Negative NEG [facility] Blood specimen (specimen) 12/10/2010 11:34 AM CDT 12/10/2010 11:35 AM CDT Aleksey Argueta MD LAB - BLOOD ORDERABL ES Performing Organization Address [facility]/ZIP Co de Phone Number [facility] from Last 3 Months or Most Recently Relevant to Health Maintenance Advance Directives For more information, please contact: [phone] * Full Code (Latest Code Status on File) Date Activated Date Inactivated Comments 05/09/2021 10:26 PM 05/10/2021 2:52 PM All basic and advanced life-sustaining interventions are performed as appropriate Question Answer Comments Code status determined by: Discussion with patie nt/ legal decision maker Care Teams Desk Director Relationship Specialty Start Date End Date Clinic, [facility] [address] [place] [address] PCP - General 03/02/20 Mary Kate Herrera PA-C [address] [place] [address] Assigned PCP 02/15/21 Randal Joe MD [facility] [address] [place] [address] 07/20/22
--- OUTSIDE RECORDS SUMMARY | 2023-09-08 23:08 | XMS_ITS | Encounter Summary ---
Author Organization [facility] Address [address] [facility] 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
--- OUTSIDE RECORDS SUMMARY | 2023-09-08 23:08 | XMS_ITS | Encounter Summary ---
Author Organization [place] Address [address] [facility] [place] [address] Care Team Providers Care Cutting And Boning Supervisor Name Role Phone [facility], [facility] Primary Care Pro vider Mary Kate Herrera PA-C Unavailable Randal Joe MD Unavailable Reason for Visit * Reason Comments Abdominal Pain Weight Loss Encounter Details Date Type Department Care Team (Late st Contact Info) Description 08/30/2023 4:10 PM CDT - 08/30/2023 7:45 PM CDT Emergency [facility] Emergency Dept [address] [place] [address] Phyllis Walden, PA-C [facility] [address] [place] [address] Abdominal pain during in second trimester; Hemorrhagic cyst of left ovary Discharge Disposition: Home or Self Care Social [...] Sign Reading Time Taken Comments Blood Pressure 108/69 08/30/2023 7:44 PM CDT Pulse 74 08/30/2023 7:44 PM CDT Temperature 37 ??C (98.6 ??F) 08/30/2023 1:37 PM CDT Respiratory Rate 18 08/30/2023 7:44 PM CDT Oxygen Saturation 99% 08/30/2023 7:44 PM CDT Inhaled Oxygen Concentration - - Weight 83.9 kg (185 lb) 08/30/2023 1:39 PM CDT Height 165.1 cm (5' 5) 08/30/2023 1:37 PM CDT Body Mass Index 30.79 08/30/2023 1:37 PM CDT documented in this encounter Discharge Instructions * Discharge Instructions* Phyllis Walden PA-C - 08/30/2023 7:19 PM CDT Follow up with your COMBATANT SWIMMER this week for reevaluation Return to ED for any new or worsening symptoms * Attachments The following attachments cannot be sent through Care Everywhere. * : Abdominal Pain ([place]) * Gastritis ([place]) documented in this encounter Medications at Time [...] as of this encounter ED Notes * Dyan Ramirez RN - 08/30/2023 1:38 PM CDT Pt presents with concern for LLQ abd pain x couple days. Hx diverticulitis. Pt reports it started as discomfort and now is stabbing pain. Endorses 3-4 lb weight loss. Is 17 wks . Reports was feeling some movement last few days and today has felt less movement. [place] weak in bathroom from pain today. Denies hitting head. Denies vaginal bleeding. A & OX4. Triage Assessment (Adult) Row Name 08/30/23 1338 Triage Assessment Airway WDL WDL Respiratory WDL Respiratory WDL WDL Skin Circulation/Temperature WDL Skin Circulation/Temperature WDL WDL Cognitive/Neuro/Behavioral WDL Cognitive/Neuro/Behavioral WDL WDL * Phyllis Walden PA-C - 08/30/2023 1:25 PM CDT Emergency Department Note History of Present Illness Chief Complaint Abdominal Pain and Weight Loss HPI Alisia Velasquez is a A1, 38 year old female who presents to the ED with her for evaluation of abdominal pain and weight loss. The patient reports that for the past couple of days she has had sharp, stabbing, burning pain in her left upper quadrant, she notes that the pain is worseafter eating. Initially she thought that the pain may have been from constipation, however, she hasbeen able to pass bowel movements over the past few days. She states that she did come in on 08/27 for evaluation of black tarry stools, she was concerned that it may have been blood in her stools, although the workup then was negative for GI bleed. She notes that she saw her OB on 08/25, since then she had lost a couple of pounds. She has been nauseous and lightheaded in addition to her abdominal pain. She denies vomiting, fever, chest pain, shortness of breath, dysuria, abnormal vaginal discharge, or blood in stool. She has tried taking Pepcid which had not relieved her symptoms. She deniespertinent medical issues or daily medication usage. Notably, her last ultrasound came back without any concerning findings of the . He notes that she just finished taking antibioticsfor a UTI. Independent Historian as detailed above. Review of External Notes 08/28/23: Patient evaluated in the ED for abdominal pain during , lab studies normal, hemoccult negative, abdominal exam benign, no indications for advanced imaging at this time Past Medical History Medical History and Problem List Anxiety Arthritis Depression Subchorionic hematoma in first trimester Insomnia Migraine Vitamin D deficiency Medications Atarax Aspirin 81 mg Colace Phenergan Surgical History Past Surgical History: Procedure Laterality Date APPENDECTOMY 2002 DILATION AND CURETTAGE SUCTION WITH ULTRASOUND GUIDANCE N/A 12/27/2022 Procedure: suction dilation and curettage with ultrasound guidance; Surgeon: Miranda Metzger DO; Location: OR Physical Exam Patient Vitals for the past 24 hrs: BP Temp Temp src Pulse Resp SpO2 Height Weight 08/30/23 1339 -- -- -- -- -- -- -- 83.9 kg (185 lb) 08/30/23 1337 116/62 98.6 ??F (37 ??C) Temporal 75 18 99 % 1.651 m (5' 5) 85.3 kg (188 lb) Physical Exam General: Alert, well developed, well nourished. Cooperative. In moderate distress HEENT: Head: Atraumatic Ears: External ears are normal Eyes: Conjunctivae normal and EOM are normal. No scleral icterus. Pupils are equal, round, and reactive to light. Neck: Normal range of motion. Neck supple. CV: Normal rate, regular rhythm, normal heart sounds and radial pulses are 2+ and symmetric. No murmur. Resp: Breath sounds are clear bilaterally Non-labored, no retractions or accessory muscle use GI: TTP over the LUQ and suprapubic area. Abdomen is soft, no distension. No rebound or guarding. No CVA tenderness bilaterally MS: Normal range of motion. No edema. Back atraumatic. No midline cervical, thoracic, or lumbar tenderness Skin: Warm and dry. No rash or lesions noted. Neuro: Alert. Normal strength. Psych: Normal mood and affect. Diagnostics Lab Results Labs Ordered and Resulted from Time of ED Arrival to Time of ED Departure ROUTINE UA WITH MICROSCOPIC REFLEX TO CULTURE - Abnormal Result Value Color Urine Yellow Appearance Urine Clear Glucose Urine Negative Bilirubin Urine Negative Ketones Urine Trace (*) Specific [place] Urine 1.014 Blood Urine Negative pH Urine 6.5 Protein Albumin Urine Negative Urobilinogen Urine Normal Nitrite Urine Negative Leukocyte Esterase Urine Negative Mucus Urine Present (*) RBC Urine 2 WBC Urine <1 Squamous Epithelials Urine 1 COMPREHENSIVE METABOLIC PANEL - Abnormal Sodium 134 (*) Potassium 3.8 Carbon Dioxide (CO2) 20 (*) Anion Gap 13 Urea Nitrogen 4.1 (*) Creatinine 0.58 GFR Estimate >90 Calcium 9.4 Chloride 101 Glucose 81 Alkaline Phosphatase 53 AST 16 ALT 12 Protein Total 7.5 Albumin 4.0 Bilirubin Total 0.7 LIPASE - Normal Lipase 33 CBC WITH PLATELETS AND DIFFERENTIAL WBC Count 9.4 RBC Count 4.16 Hemoglobin 12.5 Hematocrit 37.3 MCV 90 MCH 30.0 MCHC 33.5 RDW 12.5 Platelet Count 227 % Neutrophils 77 % Lymphocytes 13 % Monocytes 9 % Eosinophils 1 % Basophils 0 % Immature Granulocytes 1 NRBCs per 100 WBC 0 Absolute Neutrophils 7.2 Absolute Lymphocytes 1.2 Absolute Monocytes 0.8 Absolute Eosinophils 0.1 Absolute Basophils 0.0 Absolute Immature Granulocytes 0.1 Absolute NRBCs 0.0 Imaging MR Abdomen w/o Contrast Final Result IMPRESSION: 1. No definite visualized explanation for patient's symptoms. US OB >14 Weeks Limited wo Measurement Final Result IMPRESSION: 1. Single living intrauterine gestation. 2. Slightly complex 1.2 cm left ovarian cyst, likely a hemorrhagic cyst. Independent Interpretation None ED Course Medications Administered Medications - No data to display Procedures Procedures Discussion of Management None ED Course ED Course as of 08/30/231936e Aug 30, 20231613 I obtained history and examined the patient as noted above. 1825 I rechecked and updated the patient. 1927 I updated and discharged the patient. Optional/Additional Documentation None Medical Decision Making / Diagnosis [facility] Diagnoses: None MIPS None MDM Alisia Velasquez is a , 38 year old female who presents to the ED with her for evaluation of abdominal pain and weight loss. On exam, the patient has tenderness to palpation of the left upper quadrant and lower abdomen. Blood work shows no evidence of leukocytosis, anemia, or other electrolyte abnormalities. Lipase is within normal limits. UA shows no evidence of infection. Ultrasound shows a living intrauterine gestation with a small (approximately 1.2 cm hemorrhagic cyst) without any other abnormalities. MRI of the abdomen was obtained given ongoing pain which fortunately shows no acute intra-abdominal pathology. At this time, symptoms are most likely secondary to GERD orgastritis. I recommended treatment with Carafate which was sent to the patient's pharmacy. She was advised to avoid citrus, spicy, or caffeinated intake as well to avoid exacerbating the symptoms. She was advised to follow-up with her COMBATANT SWIMMER for reevaluation as soon as she is able to. She will return for any new or worsening symptoms otherwise. The patient was comfortable with this plan and all questions were answered. Disposition The patient was discharged. Diagnosis ICD-10-CM 1. Abdominal pain during in second trimester O26.892 R10.9 2. Hemorrhagic cyst of left ovary N83.202 Discharge Medications New Prescriptions SUCRALFATE (CARAFATE) 1 GM TABLET Take 1 tablet (1 g) by mouth 4 times daily for 5 days Aleida Kaba am serving as a scribe at 4:12 PM on 08/30/2023 to document services personally performed by Phyllis Walden PA-C based on my observations and the provider's statements to me. Phyllis Walden PA-C 08/31/23 0114 documented in this encounter Plan of Treatment Not on file documented as of this encounter Procedures Procedure Name Priority Date/Time Associated Diagnosis Comments MR ABDOMEN W/O CONTRAST STAT 08/30/2023 6:48 PM CDT US OB LIMITED >14 WEEKS WO MEASUREMENT STAT 08/30/2023 5:52 PM CDT ROUTINE UA WITH MICROSCOPIC REFLEX TO CULTURE STAT 08/30/2023 2:16 PM CDT EXTRA TUBE STAT 08/30/2023 2:12 PM CDT EXTRA RED TOP TUBE STAT 08/30/2023 2: 12 PM CDT EXTRA BLUE TOP TUBE STAT 08/30/2023 2 :12 PM CDT CBC WITH PLATELETS AND DIFFERENTIAL STAT 08/30/2023 2:12 PM CDT CBC WITH PLATELETS & DIFFERENTIAL STAT 08/30/2023 2:12 PM CDT LIPASE STAT 08/30/2023 2:12 PM CDT COMPREHENSIVE METABOLIC PANEL STAT 08/30/2023 2:12 PM CDT documented in this encounter Results * MR Abdomen w/o Contrast (08/30/2023 6:48 PM CDT) Anatomical Region Laterality Modality Abdomen/Pelvis, SUBRAD MR BODY, UMP MR BODY, RAD MR Magnetic Resonance 08/30/2023 6:48 PM CDT Impressions 08/30/2023 7:09 PM CDT IMPRESSION: 1. ??No definite visualized explanation for patient's symptoms. Narrative 08/30/2023 7:09 PM CDT EXAM: MR ABDOMEN W/O CONTRAST LOCATION: [facility] DATE: 08/30/2023 INDICATION: Eval of LUQ abdominal [...] 08/30/2023 EXAM: MR ABDOMEN W/O CONTRAST LOCATION: [facility] DATE: 08/30/2023 INDICATION: Eval of LUQ abdominal [...] OB LIMITED >14 WEEKS WO MEASUREMENT LOCATION: [facility] DATE: 08/30/2023 INDICATION: Evaluation of lower abdominal [...] OB LIMITED >14 WEEKS WO MEASUREMENT LOCATION: [facility] DATE: 08/30/2023 INDICATION: Evaluation of lower abdominal pain, dec movement, [id number] weeks COMPARISON: Ultrasound 07/05/2023 TECHNIQUE: Transabdominal and [...] reflex to Culture (08/30/2023 2:16 PM CDT) Color Urine Yellow Colorless, Straw, Light Yellow, Yellow 08/30/2023 2:40 PM CDT [facility] Appearance Urine Clear Clear 08/30/19 2:40 PM CDT [facility] Glucose Urine Negative Negative mg/dL 08/30/2023 2:40 PM CDT [facility] Bilirubin Urine Negative Negative 2:40 PM CDT [facility] Ketones Urine Trace(A) Negative mg/dL 08/30/2023 2:40 PM CDT [facility] Specific [place] Urine 1.014 1.003 - 1.035 08/30/2023 2:40 [...] 1 <=1 /HPF 08/30/2023 2:40 PM CDT [facility] Urine URINE SPECIMEN OBTAINED BY CLEAN CATCH PROCEDURE / Unknown Non-blood Collection / Unknown 08/30/2023 2:16 PM CDT 08/30/2023 2:29 PM CDT Narrative [facility] - 08/30/2023 2:40 PM CDT Urine Culture not indicated Phyllis Walden PA-C LAB - URINE ORD ERABLES [facility] [address] Lab (1st floor, no room number) [place] [phone], [facility] * Lipase (08/30/2023 2:12 PM CDT) Lipase 33 13 - 60 U/L 08/30/2023 4:53 PM CDT LABORATORY Blood STRUCTURE OF LEFT UPPER LIMB / Unknown Venipuncture / Unknown 08/30/2023 2:12 PM CDT 08/30/2023 2:27 PM CDT Phyllis Walden PA-C LAB - BLOOD ORD ERABLES Performing Organization Address City/[facility]/ZIP Co de Phone Number [facility] [address] Lab (1st floor, no room number) [place] [address], [facility] * Extra Red Top Tube (08/30/2023 2:12 PM CDT) Hold Specimen JIC 08/30/2023 3:31 PM CDT LABORATORY Blood STRUCTURE OF LEFT UPPER LIMB / Unknown Venipuncture / Unknown 08/30/2023 2:12 PM CDT 08/30/2023 2:29 PM CDT Phyllis Walden PA-C LAB - BLOOD ORD ERABLES [facility] [address] Lab (1st floor, no room number) [place] [address], [place] * Extra Blue Top Tube (08/30/2023 2:12 PM CDT) Hold Specimen JI 08/30/2023 3:31 PM CDT [facility] Blood STRUCTURE OF LEFT UPPER LIMB / Unknown Venipuncture / Unknown 08/30/2023 2:12 PM CDT 08/30/2023 2:29 PM CDT Phyllis Walden PA-C LAB - BLOOD ORD ERABLES [facility] [address] [facility] Lab (1st floor, no room number) [place] [address], [facility] * CBC with platelets and differential (08/30/2023 2:12 PM CDT) WBC Count 9.4 4.0 - 11.0 10e3/uL 08/30/2023 2:34 PM CDT [facility] RBC Count 4.16 3.80 - 5.20 10e6/uL 08/30/2023 2:34 PM CDT [facility] Hemoglobin 12.5 11.7 - 15.7 g/dL 08/30/2023 2:34 PM CDT [facility] Hematocrit 37.3 35.0 - 47.0 % 08/30/2023 2:34 PM CDT [facility] MCV 90 78 - 100 fL 08/30/2023 2:34 PM CDT [facility] MCH 30.0 26.5 - 33.0 pg 08/30/2023 2:34 PM CDT [facility] MCHC 33.5 31.5 - 36.5 g/dL 08/30/2023 2:34 PM CDT [facility] RDW 12.5 10.0 - 15.0 % 08/30/2023 2:34 PM CDT [facility] Platelet Count 227 150 - 450 10e3/uL 08/30/2023 2:34 PM CDT [facility] % Neutrophils 77 % 08/30/2023 2:34 PM CDT [facility] % Lymphocytes 13 % 08/30/2023 2:34 PM CDT [facility] % Monocytes 9 % 08/30/2023 2:34 PM CDT [facility] % Eosinophils 1 % 08/30/2023 2:34 PM CDT [facility] % Basophils 0 % 08/30/2023 2:34 PM CDT [facility] % Immature Granulocytes 1 % 08/30/2023 2:34 PM CDT [facility] NRBCs per 100 WBC 0 <1 /100 024 2:34 PM CDT [facility] Absolute Neutrophils 7.2 1.6 - 8.3 10e3/uL 08/30/2023 2:34 PM CDT [facility] Absolute Lymphocytes 1.2 0.8 - 5.3 10e3/uL 08/30/2023 2:34 PM CDT [facility] Absolute Monocytes 0.8 0.0 - 1.3 10e3/uL 08/30/2023 2:34 PM CDT [facility] Absolute Eosinophils 0.1 0.0 - 0.7 10e3/uL 08/30/2023 2:34 PM CDT [facility] Absolute Basophils 0.0 0.0 - 0.2 10e3/uL 08/30/2023 2:34 PM CDT [facility] Absolute Immature Granulocytes 0.1 <=0.4 10e3/uL 08/30/2023 2:34 PM CDT [facility] Absolute NRBCs 0.0 10e3/uL 08/30/2023 2:34 PM CDT [facility] Blood STRUCTURE OF LEFT UPPER LIMB / Unknown Venipuncture / Unknown 08/30/2023 2:12 PM CDT 08/30/2023 2:29 PM CDT Phyllis Walden PA-C LAB - BLOOD ORD ERABLES [facility] [address] [facility] Lab (1st floor, no room number) [place] [address], [facility] * (ABNORMAL) Comprehensive metabolic panel (08/30/2023 2:12 PM CDT) Sodium 134(L) 135 - 145 mmol/L 08/30/2023 2:52 PM CDT [facility] Potassium 3.8 3.4 - 5.3 mmol/L 08/30/2023 2:52 PM CDT [facility] Carbon Dioxide (CO2) 20(L) 22 - 29 mmol/L 08/30/2023 2:52 PM CDT [facility] Anion Gap 13 7 - 15 mmol/L 08/30/2023 2:52 PM CDT [facility] Urea Nitrogen 4.1(L) 6.0 - 20.0 mg/dL 08/30/2023 2:52 PM CDT [facility] Creatinine 0.58 0.51 - 0.95 mg/dL 08/30/2023 2:52 PM CDT [facility] GFR Estimate >90 >60 mL/min/1.7 3m2 08/30/2023 2:52 PM CDT [facility] Comment:eGFR calculated usin 2020 CKD-EPI equation. Calcium 9.4 8.8 - 10.4 mg/dL 08/30/2023 2:52 PM CDT [facility] Comment:Reference intervals for this test were updated on 08/23/2023 to reflect our healthy population more accurately. There may be differences in the flagging of prior results with similar values performed with this method. Those prior results can be interpreted in the context of the updated reference intervals. Chloride 101 98 - 107 mmol/L 08/30/2023 2:52 PM CDT [facility] Glucose 81 70 - 99 mg/dL 08/30/2023 2:52 PM CDT [facility] Alkaline Phosphatase 53 40 - 150 U/L 08/30/2023 2:52 PM CDT [facility] AST 16 0 - 45 U/L 08/30/2023 2:52 PM CDT [facility] ALT 12 0 - 50 U/L 08/30/2023 2:52 PM CDT [facility] Protein Total 7.5 6.4 - 8.3 g/dL 08/30/2023 2:52 PM CDT [facility] Albumin 4.0 3.5 - 5.2 g/dL 08/30/2023 2:52 PM CDT [facility] Bilirubin Total 0.7 <=1.2 mg/dL 08/30/2023 2:52 PM CDT [facility] Blood STRUCTURE OF LEFT UPPER LIMB / Unknown Venipuncture / Unknown 08/30/2023 2:12 PM CDT 08/30/2023 2:27 PM CDT Phyllis Walden PA-C LAB - BLOOD ORD ERABLES [facility] [address] [facility] Lab (1st floor, no room number) [place] [address], 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
--- OUTSIDE RECORDS SUMMARY | 2023-09-08 23:09 | XMS_ITS | Encounter Summary ---
Author Organization [place] Address [address] [facility] [place] [address] Care Team Providers Care Medical Scheduler Name Role Phone [facility], [facility] Primary Care Pro vider Mary Kate Herrera PA-C Unavailable Randal Joe MD Unavailable [phone] Encounter Details Date Type Department Care Team (Latest Contact Info) Description 06/26/2023 Travel Social History Tobacco Use Types Packs/Day [...] Total Score: 6 02/07/20 21 8:10 AM TAR HEEL documented as of this encounter Care Teams Medical Scheduler Relationship Specialty Start Date End Date [facility], [facility] [address] [place], [place] [phone] PCP - General 03/02/20 Mary Kate Herrera PA-C [address] [place] [address] Assigned PCP 02/15/21 Randal Joe MD [facility] [address] [place] [address] 07/20/22 documented as of this encounter
--- OUTSIDE RECORDS SUMMARY | 2023-09-08 23:09 | XMS_ITS | Encounter Summary ---
Author Organization [place] Address [address] [facility] [place] [address] Care Team Providers Care Welder Assistant Name Role Phone Clinic, [facility] Primary Care Pro vider Mary Kate Herrera PA-C Unavailable Randal Joe MD Unavailable [phone] Mary Kate Herrera PA-C Unavailable Encounter Details Date Type Department Care Team (Late st Contact Info) Description 04/20/2021 Documentation Only INTERFACED REPORT Unknown, Provider Social History Tobacco Use Types Packs/Day Years Used Date Smoking Tobacco: Former Cigarettes 1 13 0 07/08/1999 - 07/07/2012 Smokeless Tobacco: Never Comments:used to smoke 1 PPD x 11 yr Alcohol Use Standard Drinks/Week Comments Yes 0 (1 standard drink = 0.6 oz pur e alcohol) occ PHQ-2 Answer Date Recorded PHQ-2 Score 0 02/06/2021 Sex and Gender Information Value Date Recorded Sex Assigned at Not on file Gender Identity Not on file Sexual Orientation Not on file COVID-19 Exposure Response Date Recorded In the last month, have you been in contact with someone who was confirmed or suspected to have Coronavirus / COVID-19? No / Unsure 04/20/2021 7:56 PM CDT documented as of this encounter Plan of Treatment Not on file documented as of this encounter Visit Diagnoses Not on filedocumented in this encounter Additional Health Concerns Infection Onset Date Last Indicated Resolved Time Rule Out C-difficile 05/09/2021 05/10/2021 022 1:18 PM CDT C-difficile 05/10/2021 05/10/2021 06/09/2021 11:4 1 PM CDT Assessment Noted Time PHQ-9 Depression Total Score: 6 02/07/20 21 8:10 AM DUMPER documented as of this encounter Care Teams Welder Assistant Relationship Specialty Start Date End Date Clinic, [facility] [address] [place] [address] PCP - General 03/02/20 Mary Kate Herrera PA-C [address] [place] [address] Assigned PCP 02/15/[address] [facility] [address] [place] [address] 07/20/22 Mary Kate Herrera PA-C [address] [place] [address] Assigned Pain Medication Provider 01/01/23 03/02/23 documented as of this encounter
--- OUTSIDE RECORDS SUMMARY | 2023-09-08 23:09 | XMS_ITS | Encounter Summary ---
Author Organization [place] Address [address] [facility] [place] [address] Care Team Providers Care Serging Machine Operator Name Role Phone [facility], [facility] Primary Care Pro vider Mary Kate Herrera PA-C Unavailable Randal Joe MD Unavailable [phone] Encounter Details Date Type Department Care Team (Latest Contact Info) Description 07/18/2023 Travel Social History Tobacco Use Types Packs/Day [...] Total Score: 6 02/07/20 21 8:10 AM TAX ACCOUNTING ASSISTANT documented as of this encounter Care Teams Serging Machine Operator Relationship Specialty Start Date End Date [facility], [facility] [address] [place], [place] [phone] PCP - General 03/02/20 Mary Kate Herrera PA-C [address] [place] [address] Assigned PCP 02/15/21 Randal Joe MD [facility] [address] [place] [address] 07/20/22 documented as of this encounter
--- OUTSIDE RECORDS SUMMARY | 2023-09-08 23:09 | XMS_ITS | Encounter Summary ---
Author Organization [facility] Address [address] [facility] [place] [address] Care Team Providers Care Packer And Carry Out Name Role Phone [facility], [facility] Primary Care Pro vider Mary Kate Herrera PA-C Unavailable Randal Joe MD Unavailable Reason for Visit * Reason Comments Fecal Impaction Encounter Details Date Type Department Care Team (Late st Contact Info) Description 08/22/2023 11:10 AM CDT - 08/22/2023 1:57 PM T Emergency [facility] [address] [place] [address] Mai Headley, PAJohnC [facility] [address] [place] [address] Constipation during in second trimester; UTI in , second trimester Discharge Disposition: Home or Self Care Social [...] Getting School Help Needed Not on file 09/30 /2023 Estimated Date of Delivery Comme nts Yes 02/04/2024 Based on Patient Reported Sex and Gender Information Value Date Recorded Sex Assigned at Not on file Gender Identity Not on file Sexual Orientation Not on file documented as of this encounter Last Filed Vital Signs Vital Sign Reading Time Taken Comments Blood Pressure 94/56 08/22/2023 1:46 PM CDT Pulse 75 08/22/2023 1:51 PM CDT Temperature 36.7 ??C (98 ??F) 08/22/2023 9:53 AM CDT Respiratory Rate 18 08/22/2023 9:53 AM CDT Oxygen Saturation 98% 08/22/2023 1:56 PM CDT Inhaled Oxygen Concentration - - Weight 86.6 kg (190 lb 14.7 oz) 08/22/2023 9:53 AM CDT Height 170.2 cm (5' 7) 08/22/2023 9:53 AM CDT Body Mass Index 29.9 08/22/2023 9:53 AM CDT documented in this encounter Discharge Instructions * Discharge Instructions* Mai Headley PA-C - 08/22/2023 1:25 PM CDT I recommend continuing MiraLAX to keep your stool soft. You can try half a capful each day or a capful every other day. You may also use Colace or wmwu-joi-boaholq suppositories or Fleet enemas at home. Return to the ED should you develop abdominal pain, vaginal bleeding, fevers, persistent vomiting, or further emergent concerns. Otherwise, follow-up with your TECHNOLOGY ASSISTANT later this week to reassess urine and constipation. Take antibiotic as prescribed. Discharge Instructions Urinary Tract Infection You or your child have been diagnosed with a urinary tract infection, or UTI. The urinary tract includes the kidneys (which make urine/pee), ureters (the tubes that carry urine/pee from the kidneys to the bladder), the bladder (which stores urine/pee), and urethra (the tube that carries urine/pee out of the bladder). Urinary tract infections occur when bacteria travel up the urethra into the bladder (bladder infection) and, in some cases, from there into the kidneys (kidney infection). Generally, every Emergency Department visit should have a follow-up clinic visit with either a primary or a specialty clinic/provider. Please follow-up as instructed by your emergency provider today. Return to the Emergency Department if: You or your child have severe back pain. You or your child are vomiting (throwing up) so that you cannot take your medicine. You or your child have a new fever (had not previously had a fever) over 101??F. You or your child have confusion or are very weak, or feel very ill. Your child seems much more ill, will not wake up, will not respond right, or is crying for a long time and will not calm down. You or your child are showing signs of dehydration. These signs may include decreased urination (pee), dry mouth/gums/tongue, or decreased activity. Follow-up with your provider: Children under 24 months need to be seen by their regular provider within one week after a diagnosis of a UTI. It may be necessary to do some more tests to look at the child???s kidney or bladder. You should begin to feel better within 24 - 48 hours of starting your antibiotic; follow-up with your regular clinic/doctor/provider if this is not the case. Treatment: You will be treated with an antibiotic to kill the bacteria. We have to make an educated guess, based on what we know about common bacteria and antibiotics, as to which antibiotic will work for your infection. We will be correct most times but there will be some cases where the antibiotic chosen isnot correct (see urine cultures below). Take a pain medication such as acetaminophen (Tylenol??) or ibuprofen (Advil??, Motrin??, Nuprin??). Phenazopyridine (Pyridium??, Uristat??) is a prescription medication that numbs the bladder to reduce the burning pain of some UTIs. The same medication is available in a non-prescription version (Azo-Standard??, Urodol??). This medication will change the color of the urine and tears (usually blue or orange). If you wear contacts, do not wear them while taking this medication as they may be stained by the medication. Urine Cultures: If indicated, a urine culture may have been performed today. This test generally takes 24-48 hours to complete so the results are not known at this time. The results can confirm that an infection is present but also determine which antibiotic is effective for the specific bacteria that is causing the infection. If your urine culture shows that the antibiotic you were given today will not work to treat your infection, we will attempt to contact you to make arrangements to change the antibiotic. If the culture confirms that the antibiotic is effective for your infection, you will not be contacted. We often recommend follow-up with your regular physician/provider on the culture results regardless of this process. Antibiotic Warning: If you have been placed on antibiotics - watch for signs of allergic reaction. These include rash, lip swelling, difficulty breathing, wheezing, and dizziness. If you develop any of these symptoms, stop the antibiotic immediately and go to an emergency room or urgent care for evaluation. Probiotics: If you have been given an antibiotic, you may want to also take a probiotic pill or eatyogurt with live cultures. Probiotics have good bacteria to help your intestines stay healthy. Studies have shown that probiotics help prevent diarrhea and other intestine problems (including C. diff infection) when you take antibiotics. You can buy these without a prescription in the pharmacy section of the store. If you were given a prescription for medicine here today, be sure to read all of the information (including the package insert) that comes with your prescription. This will include important information about the medicine, its side effects, and any warnings that you need to know about. The pharmacist who fills the prescription can provide more information and answer questions you may have about the medicine. If you have questions or concerns that the pharmacist cannot address, please call or return to the Emergency Department. Remember that you can always come back to the Emergency Department if you are not able to see your regular provider in the amount of time listed above, if you get any new symptoms, or if there is anything that worries you. * Attachments The following attachments cannot be sent through Care Everywhere. * Constipation (Citizen Of [place]) documented in this encounter Medications at Time [...] needed for nausea VITAMIN D3 50 MCG (1999) tablet Take 1 tablet by mouth daily nitroFURantoin macrocrystal-monohydrat e (MACROBID) 100 MG capsule Take 1 capsule (100 mg) by mouth 2 times daily for 7 days 14 capsule 08/22/2023 08/29/2023 documented as of this encounter ED Notes * Aleida Davis RN - 08/22/2023 9:55 AM CDT Patient reports not having a BM for 2 days. Called OB clinic for advice. Per chart review, OB advised patient try enema or suppository for relief. Patient opted to come to ED for disimpaction vs OTC treatment. ABCs intact * Mai Headley PA-C - 08/22/2023 9:49 AM CDT Emergency Department Note History of Present Illness Chief Complaint Fecal Impaction HPI Alisia Velasquez is a 38 year old female who is currently 16 weeks who presents to the ED with concerns of constipation. Patient reports that she is constipated and can feel stool juice leaking out and she can feel the stool at the end of her rectum. Her last bowel movement was 3 days ago but it was harder than normal so she has been taking Miralax for the last 2 days. Denies abdominal pain. She talked to OB who recommended she try pxad-vod-ospanrm suppositories orenemas, however she opted to come in to the ED like she did last time she was constipated. Patient is 16 weeks . This is her second ; one miscarriage and current one. With this she has had a hematoma in her uterus and vaginal bleeding. She is on a baby aspirin to prevent preeclampsia. She denies current vaginal bleeding. She denies dysuria, hematuria, or abdominal pain. She has had frequency of urination, which she attributed to the . Her OB prescribed Macrobid for UTI, but UA was negative. She left these pills in her car and they melted together, therefore she has not taken any of the pills. 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 Feels anxious regarding thepregnancy. She has been to the ED multiple times for nausea, vomiting, constipation, vaginal bleeding. Past Medical History Medical History and Problem List Anxiety Arthritis Depressive disorder Anxiety Vitamin D deficiency Morbid obesity Medications hydrOXYzine (ATARAX) 25 MG tablet Vit-Fe Fumarate-FA ( PLUS) 27-1 MG TABS promethazine (PHENERGAN) 25 MG tablet VITAMIN D3 50 MCG (1999) tablet Surgical History Appendectomy D&C suction Physical Exam Patient Vitals for the past 24 hrs: BP Temp Pulse Resp SpO2 Height Weight 08/22/23 0957 113/65 -- -- -- -- -- -- 08/22/23 0953 -- 98 ??F (36.7 ??C) 68 18 99 % 1.702 m (5' 7) 86.6 kg (190 lb 14.7 oz) Physical Exam Vital signs and nursing notes reviewed. General: Alert and oriented. Resting on bed with mom at bedside. Skin: Skin is warm and dry. HEENT: Head: Normocephalic, atraumatic. Facial features symmetric. Eyes: Conjunctiva pink, sclera white. EOMs grossly intact. Ears: Auricles without lesion, erythema, or edema. Nose: Symmetric with no discharge. Mouth and throat: Lips are moist with no lesions or edema Neck: Normal range of motion. CV: Heart RRR. 2+ radial pulses bilaterally. No peripheral edema. Pulm/Chest: Chest wall expansion symmetric with no increased effort of breathing. Lungs clear and equal to auscultation bilaterally. Abd: Bowel sounds present and physiologic. Abdomen is soft and nontender to palpation in all 4 quadrants with no guarding or rebound. : LORETTA without pain with insertion. No stool felt. No bleeding. M/S: Moves all extremities spontaneously. Diagnostics Lab Results Labs Ordered and Resulted from Time of ED Arrival to Time of ED Departure COMPREHENSIVE METABOLIC PANEL - Abnormal Result Value Sodium 134 (*) Potassium 4.4 Carbon Dioxide (CO2) 21 (*) Anion Gap 14 Urea Nitrogen 5.9 (*) Creatinine 0.57 GFR Estimate >90 Calcium 8.9 Chloride 99 Glucose 85 Alkaline Phosphatase 42 AST 35 ALT 9 Protein Total 7.1 Albumin 3.9 Bilirubin Total 0.5 ROUTINE UA WITH MICROSCOPIC REFLEX TO CULTURE - Abnormal Color Urine Yellow Appearance Urine Clear Glucose Urine Negative Bilirubin Urine Negative Ketones Urine Negative Specific [place] Urine 1.026 Blood Urine Negative pH Urine 5.5 Protein Albumin Urine 10 (*) Urobilinogen Urine Normal Nitrite Urine Negative Leukocyte Esterase Urine Small (*) Bacteria Urine Few (*) Mucus Urine Present (*) RBC Urine 3 (*) WBC Urine 4 Squamous Epithelials Urine 3 (*) CBC WITH PLATELETS AND DIFFERENTIAL - Abnormal WBC Count 11.6 (*) RBC Count 4.31 Hemoglobin 13.1 Hematocrit 38.3 MCV 89 MCH 30.4 MCHC 34.2 RDW 12.4 Platelet Count 211 % Neutrophils 78 % Lymphocytes 13 % Monocytes 7 % Eosinophils 1 % Basophils 0 % Immature Granulocytes 1 NRBCs per 100 WBC 0 Absolute Neutrophils 9.0 (*) Absolute Lymphocytes 1.6 Absolute Monocytes 0.9 Absolute Eosinophils 0.1 Absolute Basophils 0.1 Absolute Immature Granulocytes 0.1 Absolute NRBCs 0.0 LIPASE Imaging No orders to display Independent Interpretation None ED Course Medications Administered Medications Enema Compound (docusate/mineral oil/NaPhos) NO MAG CIT PREMIX (226 mLs Rectal $Given 08/22/23 1236) Procedures Procedures Discussion of Management None ED Course ED Course as of 08/22/23 1701 Mon Aug 22, 2023 1115 I initially assessed the patient and obtained the above history and physical exam. 1131 Attempted manual disimpaction but no stool at rectal vault 1320 I reassessed the patient and updated them on results and plan of care. Optional/Additional Documentation None Medical Decision Making / Diagnosis [facility] Diagnoses: None MIPS None MDM Alisia Velasquez is a 38 year old female who is 16 weeks and presents to the emergency department with concerns of constipation. Vital signs stable. She has history of constipationin her . She has no abdominal pain or tenderness on exam. Labs are reassuring and at the patient's baseline. No significant electrolyte, metabolic, renal, or hepatic abnormalities. UA is without evidence of infection. Patient has mild leukocytosis with a white blood cell count of 11.6, butthis is baseline for the patient and likely associated to stress around the situation as opposed toinfection. LORETTA reveals no fecal impaction requiring disimpaction. There is no blood on exam or painwith insertion. She has no vaginal bleeding. Constipation symptoms are improved after enema and large bowel movement. UA is positive for leukocyte Estrace. Patient has had urinary frequency, to which she attributed just to her . Her TECHNOLOGY ASSISTANT had previously prescribed Macrobid, but the patient did not take anyof these pills, as she left the melts in her car. We will initiate Macrobid yet again today given new findings of UA. I recommend close follow-up with her TECHNOLOGY ASSISTANT later this week for further assessment and monitoring. Recommended daily MiraLAX, half capful each day, if a full capful each day was causing her to have 2 looser stools. Using reasonable clinical judgment, she is safe for discharge home. I have low suspicion for sinister intra-abdominal pathology or obstetric complications. She will return to the ED should she develop abdominal pain, fever, vomiting, blood in her stool, vaginal bleeding, or any further emergent concerns. Patient agreeable to plan and had questions answered. Patient and mom agreeable to plan and had questions answered. Disposition The patient was discharged. Diagnosis ICD-10-CM 1. Constipation during in second trimester O99.612 K59.00 2. UTI in , second trimester O23.42 Discharge Medications Discharge Medication List as of 08/22/2023 1:47 PM START taking these medications Details nitroFURantoin macrocrystal-monohydrate (MACROBID) 100 MG capsule Take 1 capsule (100 mg) by mouth 2 times daily for 7 days, Disp-14 capsule, R-0, E-Prescribe Scribe Disclosure: Maureen Kaba, am serving as a scribe at 11:36 AM on 08/22/2023 to document services personally performed by Mai Headley PA-C based on my observations and the provider's statements to me. Mai Headley PA-C on 08/22/2023 at 5:07 PM Mai Headley PA-C 08/22/23 1707 documented in this encounter Plan of Treatment Not on file documented as of this encounter Procedures Procedure Name Priority Date/Time Associated Diagnosis Comments CBC WITH PLATELETS AND DIFFERENTIAL STAT 08/22/2023 11:47 AM CDT CBC WITH PLATELETS & DIFFERENTIAL STAT 08/22/2023 11:47 AM CDT COMPREHENSIVE METABOLIC PANEL STAT 08/22/2023 11:47 AM CDT ROUTINE UA WITH MICROSCOPIC REFLEX TO CULTURE STAT 08/22/2023 11:35 AM CDT documented in this encounter Results * (ABNORMAL) CBC with platelets and differential (08/22/2023 11:47 AM CDT) WBC Count 11.6(H) 4.0 - 11.0 10e3/uL 08/22/2023 11:55 AM CDT [facility] RBC Count 4.31 3.80 - 5.20 10e6/uL 08/22/2023 11:55 AM CDT [facility] Hemoglobin 13.1 11.7 - 15.7 g/dL 08/22/2023 11:55 AM CDT [facility] Hematocrit 38.3 35.0 - 47.0 % 08/22/2023 11:55 AM CDT [facility] MCV 89 78 - 100 fL 08/22/2023 11:55 AM CDT [facility] MCH 30.4 26.5 - 33.0 pg 08/22/2023 11:55 AM CDT [facility] MCHC 34.2 31.5 - 36.5 g/dL 08/22/2023 11:55 AM CDT [facility] RDW 12.4 10.0 - 15.0 % 08/22/2023 11:55 AM CDT [facility] Platelet Count 211 150 - 450 10e3/uL 08/22/2023 11:55 AM CDT [facility] % Neutrophils 78 % 08/22/2023 11:55 AM CDT [facility] % Lymphocytes 13 % 08/22/2023 11:55 AM CDT [facility] % Monocytes 7 % 08/22/2023 11:55 AM CDT [facility] % Eosinophils 1 % 08/22/2023 11:55 AM CDT [facility] % Basophils 0 % 08/22/2023 11:55 AM CDT [facility] % Immature Granulocytes 1 % 08/22/2023 11:55 AM CDT [facility] NRBCs per 100 WBC 0 <1 /100 024 11:55 AM CDT [facility] Absolute Neutrophils 9.0(H) 1.6 - 8.3 10e3/uL 08/22/2023 11:55 AM CDT [facility] Absolute Lymphocytes 1.6 0.8 - 5.3 10e3/uL 08/22/2023 11:55 AM CDT [facility] Absolute Monocytes 0.9 0.0 - 1.3 10e3/uL 08/22/2023 11:55 AM CDT [facility] Absolute Eosinophils 0.1 0.0 - 0.7 10e3/uL 08/22/2023 11:55 AM CDT [facility] Absolute Basophils 0.1 0.0 - 0.2 10e3/uL 08/22/2023 11:55 AM CDT [facility] Absolute Immature Granulocytes 0.1 <=0.4 10e3/uL 08/22/2023 11:55 AM CDT [facility] Absolute NRBCs 0.0 10e3/uL 08/22/2023 11:55 AM CDT [facility] Blood STRUCTURE OF LEFT UPPER LIMB / Unknown Venipuncture / Unknown 08/22/2023 11:47 AM CDT 08/22/2023 11:53 AM CDT Mai Headley PA-C LAB - BLOOD [facility] [address] [facility] (1st floor, no room number) [place] [address] * (ABNORMAL) Comprehensive metabolic panel (08/22/2023 11:47 AM CDT) Sodium 134(L) 135 - 145 mmol/L 08/22/2023 12:23 PM CDT LABORATORY Potassium 4.4 3.4 - 5.3 mmol/L 08/22/2023 12:23 PM CDT [facility] Comment:Specimen slightly he molyzed. The reported potassium value may be falsely elevated. Analysis of a non-hemolyzed specimen (i.e. re-draw) may result in a lower potassium value. Carbon Dioxide (CO2) 21(L) 22 - 29 mmol/L 08/22/2023 12:23 PM CDT [facility] Anion Gap 14 7 - 15 mmol/L 08/22/2023 12:23 PM CDT LAB[facility]ORY Urea Nitrogen 5.9(L) 6.0 - 20.0 mg/dL 08/22/2023 12:23 PM CDT [facility] Creatinine 0.57 0.51 - 0.95 mg/dL 08/22/2023 12:23 PM CDT [facility] GFR Estimate >90 >60 mL/min/1. 73m2 08/22/2023 12:23 PM CDT [facility] Comment:eGFR calculated us2020 CKD-EPI equation. Calcium 8.9 8.6 - 10.0 mg/dL 08/22/2023 12:23 PM CDT [facility] Chloride 99 98 - 107 mmol/L 08/22/2023 12:23 PM CDT [facility] Glucose 85 70 - 99 mg/dL 08/22/2023 12:23 PM CDT [facility] Alkaline Phosphatase 42 40 - 150 U/L 08/22/2023 12:23 PM CDT [facility] AST 35 0 - 45 U/L 08/22/2023 12:23 PM CDT [facility] Comment: Specimen is hemolyzed which can falsely elevate AST. Analysis of a non-hemolyzed specimen may result in a lower value. Reference intervals for this test were updated on 07/19/2022 to more accurately reflect our healthy population. There may be differences in the flagging of prior results with similar values performed with this method. Interpretation of those prior results can be made in the context of the updated reference intervals. ALT 9 0 - 50 U/L 08/22/2023 12:23 PM CDT [facility] Comment:Reference intervals for this test were updated on 07/19/2022 to more accurately reflect our healthy population. There may be differences in the flagging of prior results with similar values performed with this method. Interpretation of those prior results can be made in the context of the updated reference intervals. Protein Total 7.1 6.4 - 8.3 g/dL 08/22/2023 12:23 PM CDT [facility] Albumin 3.9 3.5 - 5.2 g/dL 08/22/2023 12:23 PM CDT [facility] Bilirubin Total 0.5 <=1.2 mg/dL 08/22/2023 12:23 PM CDT [facility] Blood STRUCTURE OF LEFT UPPER LIMB / Unknown Venipuncture / Unknown 08/22/2023 11:47 AM CDT 08/22/2023 11:53 AM CDT Mai Headley PA-C LAB - BLOOD [facility] [address] [facility] Lab (1st floor, no room number) [place] [address], [facility] * (ABNORMAL) UA with Microscopic reflex to Culture (08/22/2023 11:35 AM CDT) Color Urine Yellow Colorless, Straw, Light Yellow, Yellow 08/22/2023 11:56 AM CDT LABORATORY Appearance Urine Clear Clear 08/22/19 11:56 AM CDT LAB[facility]ORY Glucose Urine Negative Negative mg/dL 08/22/2023 11:56 AM CDT LAB[facility]ORY Bilirubin Urine Negative Negative 11:56 AM CDT LAB[facility]ORY Ketones Urine Negative Negative mg/dL 08/22/2023 11:56 AM CDT [facility] Specific [place] Urine 1.026 1.003 - 1.035 08/22/2023 11:56 AM CDT [facility] Blood Urine Negative Negative 08/22/2023 11:56 AM CDT LAB[facility] pH Urine 5.5 5.0 - 7.0 08/22/2023 11:56 AM CDT [facility] Protein Albumin Urine 10(A) Negative mg/dL 08/22/2023 11:56 AM CDT LAB[facility] Urobilinogen Urine Normal Normal, 2.0 mg/dL 08/22/2023 11:56 AM CDT LAB[facility] Nitrite Urine Negative Negative 08/22/2023 11:56 AM CDT LAB[facility] Leukocyte Esterase Urine Small(A) Negative 08/22/2023 11:56 AM CDT [facility] Bacteria Urine Few(A) None Seen /HPF 08/22/2023 11:56 AM CDT LAB[facility] Mucus Urine Present(A) None Seen /LPF 08/22/2023 11:56 AM CDT LAB[facility] RBC Urine 3(H) <=2 /HPF 08/22/2023 11:56 AM CDT LAB[facility]ORY WBC Urine 4 <=5 /HPF 08/22/2023 11:56 AM CDT LAB[facility]ORY Squamous Epithelials Urine 3(H) <=1 /HPF 08/22/2023 11:56 AM CDT LABORATORY Urine MID-STREAM URINE SPECIMEN / Unknown Non-blood Collection / Unknown 08/22/2023 11:35 AM CDT 08/22/2023 11:40 AM CDT Narrative LABORATORY - 08/22/2023 11:56 AM CDT Urine Culture not indicated Mai Headley PA-C LAB - URINE [facility] [address] [facility] Lab (1st floor, no room number) [place] [address], [facility] documented in this encounter Visit Diagnoses Diagnosis Constipation during in second trimester UTI in , second trimester documented in this encounter Administered Medications Inactive Administered Medications - up to 3 most recent administrations Medication Order MAR Action Action Date Dose Rate Site Enema Compound (docusate/mineral oil/NaPhos) NO MAG CIT PREMIX 226 mL, Rectal, ONCE, On Tue08/22/23 at 1125, For 1 dose, mag citrate not included due to content engineer recall. $Given 08/22/2023 12:36 PM CDT 226 mLs documented in this encounter Active and Recently Administered Medications Times are shown in CDT. Scheduled Medication Order 08/20/2023 08/21/2023 08/22/2023 Enema Compound (docusate/mineral oil/NaPhos) NO MAG CIT PREMIX (COMPLETED) 226 mL, Rectal, ONCE, On Tue08/22/23 at 1125, For 1 dose, mag citrate not included due to content engineer recall. 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
--- OUTSIDE RECORDS SUMMARY | 2023-09-08 23:09 | XMS_ITS | Encounter Summary ---
Author Organization [place] Address [address] [facility] 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
--- OUTSIDE RECORDS SUMMARY | 2023-09-08 23:09 | XMS_ITS | Encounter Summary ---
Author Organization [place] Address [address] [place] [address] Care Team Providers Care Hospital Aide Name Role Phone [facility], [facility] Primary Care Pro vider Mary Kate Herrera PA-C Unavailable Randal Joe MD Unavailable Reason for Visit * Reason Comments Nausea & Vomiting Abdominal Pain Encounter Details Date Type Department Care Team (Late st Contact Info) Description 07/18/2023 5:21 AM CDT - 07/18/2023 9:08 AM CDT Emergency [facility] [address] [place] [address] Kendall Omalley MD [facility] [address] [place] [address] Nausea and vomiting during Discharge Disposition: Home or Self Care Social [...] Sign Reading Time Taken Comments Blood Pressure 113/58 07/18/2023 8:30 AM CDT Pulse 81 07/18/2023 8:30 AM CDT Temperature 36.4 ??C (97.6 ??F) 07/18/2023 5:19 AM CD T Respiratory Rate 16 07/18/2023 8:30 AM CDT Oxygen Saturation 100% 07/18/2023 8:50 AM CDT Inhaled Oxygen Concentration - - Weight 89.5 kg (197 lb 5 oz) 07/18/2023 5:17 AM CDT Height - - Body Mass Index 32.83 07/16/2023 11:30 PM CDT documented in this encounter Discharge Instructions * Discharge Instructions* Ceci Salazar PA-C - 07/18/2023 8:43 AM CDT Please follow-up with your PET CARE ASSOCIATE. Call them and tell them that you are in the emergency department. Please start taking Pepcid 2 times a day. Continue taking your antiemetic. If symptoms worsen: If you have uncontrolled vomiting, abdominal pain, vaginal bleeding please return to the emergency department. * Attachments The following attachments cannot be sent through Care Everywhere. * : Morning Sickness (Danish) documented in this encounter Medications at Time [...] tablet Take 1 tablet by mouth daily famotidine (PEPCID) 10 MG tablet Take 1 tablet (10 mg) by mouth 2 times daily for 30 days 60 tablet 07/18/2023 08/17/2023 documented as of this encounter ED Notes * Mayuri Metz RN - 07/18/2023 5:17 AM CDT Pt to ER w c/o vomitting and abdominal cramps for 24 hours. Pt states she is 11 weeks but this is more than morning sickness. Rates pain 8/10. Denies vaginal bleeding. Pt taking prescribed promethazine with no relief. VSS, ABCs intact, A&Ox4. * Ceci Salazar PA-C - 07/18/2023 5:15 AM CDT Emergency Department Note History of Present Illness Chief Complaint Nausea & Vomiting and Abdominal Pain HPI Alisia Velasquez is a 38 year old female who presents to the ED for evaluation of abdominal pain, nausea, vomiting. Patient is 12 weeks . On Tuesday the patient had 1 episode of emesis after eating greasy food. On Tuesday she had 3 episodes of emesis and epigastric pain. This continued into Tuesday. She describes epigastric pain as burning, it has been constant. States that this feels somewhat different than her morning sickness. Has tried Phenergan without relief in symptoms. At midnight last night she began to develop lower abdominal cramping rated a 5/10 in severity. States that it feels like her menstrual period. Denies vaginal bleeding, vaginal discharge, dysuria, hematuria. Patient's blood is A+. Independent Historian None Review of External Notes US OB <14: IMPRESSION: 1. Single living intrauterine gestation at 10 weeks 3 days by crown-rump length measurement, EDC 01/28/2024. 2. Small subchorionic hematoma measuring 2.4 cm. Past Medical History Medical History and Problem List Past Medical History: Diagnosis Date Anxiety Arthritis Depressive disorder Medications famotidine (PEPCID) 10 MG tablet promethazine (PHENERGAN) 25 MG tablet hydrOXYzine (ATARAX) 25 MG tablet Vit-Fe Fumarate-FA ( PLUS) 27-1 MG TABS VITAMIN D3 50 MCG (1999) tablet Surgical History Past Surgical History: Procedure Laterality Date APPENDECTOMY 2002 DILATION AND CURETTAGE SUCTION WITH ULTRASOUND GUIDANCE N/A 12/27/2022 Procedure: suction dilation and curettage with ultrasound guidance; Surgeon: Miranda Metzger DO; Location: [facility] OR Physical Exam Patient Vitals for the past 24 hrs: BP Temp Temp src Pulse Resp SpO2 Weight 07/18/23 0850 -- -- -- -- -- 100 % -- 07/18/23 0840 -- -- -- -- -- 98 % -- 07/18/23 0830 113/58 -- -- 81 16 100 % -- 07/18/23 0816 114/58 -- -- -- -- 100 % -- 07/18/23 0810 114/58 -- -- 71 -- 100 % -- 07/18/23 0740 97/41 -- -- 69 -- 100 % -- 07/18/23 0519 136/70 97.6 ??F (36.4 ??C) Temporal 80 18 100 % -- 07/18/23 0517 -- -- -- -- -- -- 89.5 kg (197 lb 5 oz) Physical Exam General: Awake, alert, non-toxic. Tearful. Head: Scalp is atraumatic. Eyes: Conjunctiva normal, PERRL ENT: The external nose and ears are normal. Oropharynx clear, uvula midline. Neck: Normal range of motion without rigidity. CV: Regular rate and rhythm No pathologic murmur, rubs, or gallops. Resp: Breath sounds are clear bilaterally Non-labored, no retractions or accessory muscle use Abdomen: Mild epigastric pain to palpation. Negative George's. Abdomen is soft, no distension. No CVA tenderness. MS: No lower extremity edema/swelling. No midline cervical, thoracic, or lumbar tenderness. Extremities without joint swelling or redness. Skin: Warm and dry, No rash or lesions noted. Neuro: Alert and oriented. GCS 15 Moves all extremities normal. No facial asymmetry. Gait normal. Psych: Awake. Alert. Normal affect. Appropriate interactions. Diagnostics Lab Results Labs Ordered and Resulted from Time of ED Arrival to Time of ED Departure COMPREHENSIVE METABOLIC PANEL - Abnormal Result Value Sodium 134 (*) Potassium 4.7 Carbon Dioxide (CO2) 20 (*) Anion Gap 13 Urea Nitrogen 6.1 Creatinine 0.56 GFR Estimate >90 Calcium 9.4 Chloride 101 Glucose 95 Alkaline Phosphatase 46 AST 29 ALT 10 Protein Total 7.4 Albumin 3.9 Bilirubin Total 0.5 LIPASE - Normal Lipase 30 CBC WITH PLATELETS AND DIFFERENTIAL WBC Count 9.9 RBC Count 4.43 Hemoglobin 13.4 Hematocrit 38.6 MCV 87 MCH 30.2 MCHC 34.7 RDW 12.3 Platelet Count 228 % Neutrophils 72 % Lymphocytes 18 % Monocytes 9 % Eosinophils 1 % Basophils 0 % Immature Granulocytes 0 NRBCs per 100 WBC 0 Absolute Neutrophils 7.1 Absolute Lymphocytes 1.8 Absolute Monocytes 0.8 Absolute Eosinophils 0.1 Absolute Basophils 0.0 Absolute Immature Granulocytes 0.0 Absolute NRBCs 0.0 Independent Interpretation None ED Course Medications Administered Medications metoclopramide (REGLAN) injection 10 mg (10 mg Intravenous $Given 07/18/23 0646) diphenhydrAMINE (BENADRYL) injection 25 mg (25 mg Intravenous $Given 07/18/23 0651) sodium chloride 0.9% BOLUS 500 mL (0 mLs Intravenous Stopped 07/18/23 0743) acetaminophen (TYLENOL) tablet 650 mg (650 mg Oral $Given 07/18/23 0823) famotidine (PEPCID) tablet 10 mg (10 mg Oral $Given 07/18/23 0848) Procedures Procedures Discussion of Management None Social Determinants of Health adding to complexity of care None ED Course Medical Decision Making / Diagnosis [facility] Diagnoses: None MIPS None [facility] Alisia Velasquez is a 38 year old female who presented to the emergency department for evaluation of 3 days of nausea and vomiting along with epigastric pain in the setting of first trimester . Differential diagnosis was broad and included GERD, pancreatitis, biliary pathology, gastroenteritis, morning sickness, among others. Patient is hemodynamically stable and afebrile at presentation. No evidence of electrolyte abnormalities to suggest significant dehydration. No leukocytosis infectious etiology. Lipase normal, pancreatitis unlikely. She has had 6 ultrasounds of the fetus inthe past month. There is no evidence of bleeding or vaginal discharge that would suggest threatened miscarriage. Patient later mentioned to Dr. Omalley that she uses to sleep walk and ingest foreign bodies, she is concerned about this today. The patient's abdominal exam is benign without peritonealsigns. Discussed that it is unlikely that she ingested a foreign body and to evaluate for this would have to do imaging that would expose her baby to radiation. Patient felt improved with above interventions. Discussed that GERD could be a cause of her pain and nausea. The patient is to be discharged on a prescription for Pepcid. Instructed to follow-up with her PET CARE ASSOCIATE. Discussed importance of drinking fluids. Return precautions discussed. The patient is discharged home in stable condition. Disposition The patient was discharged. ICD-10 Codes: ICD-10-CM 1. Nausea and vomiting during O21.9 Discharge Medications Discharge Medication List as of 07/18/2023 8:51 AM START taking these medications Details famotidine (PEPCID) 10 MG tablet Take 1 tablet (10 mg) by mouth 2 times daily for 30 days, Disp-60 tablet, R-0, E-Prescribe VJ Clinton Alexandra, PA-C 07/18/23 1047 * Kendall Omalley MD - 07/18/2023 5:15 AM CDT ED ATTENDING PHYSICIAN NOTE: I evaluated this patient in conjunction with Ceci Salazar PA-C I have participated in the care of the patient and personally performed mahoney elements of the history, exam, and medical decision making. HPI: Alisia Velasquez is a 38 year old female who presents to the ED for evaluation of abdominal pain, nausea, vomiting. Patient is 12 weeks and endorses 1 episode of emesis 3 days ago after eating greasy food. She has been intermittently vomiting throughout the weekend and now endorses constant burning epigastric pain. Last night she developed 5/10 lower abdominal cramping that f eels like her menstrual period. She denies any vaginal bleeding, discharge, dysuria, hematuria. Independent Historian: None Review of External Notes: I reviewed her ED visit from 07/16/2023 as well as her most recent ultrasound on 07/05/2023. EXAM: BP 113/58 Pulse 81 Temp 97.6 ??F (36.4 ??C) (Temporal) Resp 16 Wt 89.5 kg (197 lb 5 oz) LMP 04/30/2023 SpO2 100% BMI 32.83 kg/m?? Constitutional: Vital signs reviewed as above General: Alert HEENT: Moist mucous membranes Eyes: Conjunctiva normal. Neck: Normal range of motion Cardiovascular: Regular rate, Regular rhythm and normal heart sounds. No MRG Pulmonary/Chest: Effort normal and breath sounds normal. No respiratory distress. Patient has no wheezes. Patient has no rales. Abdominal: Mild epigastric tenderness to palpation. No other areas abdominal tenderness. Abdomen issoft. Musculoskeletal/Extremities: Full ROM. Endo: No pitting edema Neurological: Alert, no focal deficits. Skin: Skin is warm and dry. Psychiatric: Pleasant, anxious Independent Interpretation (X-rays, CTs, rhythm strip): None Consultations/Discussion of Management or Tests: None Social Determinants of Health affecting care: None MEDICAL DECISION MAKING/ASSESSMENT AND PLAN: Patient is a 38-year-old female who is approximately 12 weeks who Dheeraj presents emergency department with nausea and vomiting with epigastric discomfort. She has had 6 ultrasounds in the month of June all of which have been essentially reassuring. She has had no fluid passage or vaginal bleeding. No urinary symptoms. Lab work as above/unremarkable. She tells me that she is concerned that she started sleepwalking and when she was a child she would often eat things that were not meant to be eaten and had to go to the ER once. Again her abdominal exam here is benign without peritoneal signs. GERD is certainly a consideration. There is no evidence of pancreatitis, hepatitis or intra-abdo cathleen catastrophe on serial examinations here. She was given Reglan and Benadryl as well as fluids Tylenol and Pepcid. She will continue with fluids at home. Will start her on Pepcid as well. Follow-up with her primary care doctor as symptoms warrant. DIAGNOSIS: ICD-10-CM 1. Nausea and vomiting during O21.9 DISPOSITION: Patient was discharged to home. Scribe Disclosure: ICésar, am serving as a scribe at 6:28 AM on 07/18/2023 to document services personally performed by Kendall Omalley MD based on my observations and the provider's statements to me. Leonid Kaba, am serving as a scribe link trainer mechanic at 7:12 AM on 07/18/2023 to document servicespersonally performed by Kendall Omalley MD based on my observations and the provider's statements to me. 07/18/2023 [facility] Kendall Omalley MD 07/18/23 1038 documented in this encounter Plan of Treatment Not on file documented as of this encounter Procedures Procedure Name Priority Date/Time Associated Diagnosis Comments LIPASE STAT 07/18/2023 8:06 AM CDT CBC WITH PLATELETS AND DIFFERENTIAL STAT 07/18/2023 6:42 AM CDT CBC WITH PLATELETS & DIFFERENTIAL STAT 07/18/2023 6:42 AM CDT COMPREHENSIVE METABOLIC PANEL STAT 07/18/2023 6:42 AM CDT documented in this encounter Results * Lipase (07/18/2023 8:06 AM CDT) Lipase 30 13 - 60 U/L 07/18/2023 8:27 AM CDT [facility] Blood STRUCTURE OF LEFT UPPER LIMB / Unknown Venipuncture / Unknown 07/18/2023 8:06 AM CDT 07/18/2023 8:09 AM CDT Ceci Salazar PA-C LAB - BLOOD ORDERABLES LABORATORY [facility] Acute Care Lab [address] [facility] Lab (1st floor, no room number) [place] [address] * CBC with platelets and differential (07/18/2023 6:42 AM CDT) WBC Count 9.9 4.0 - 11.0 10e3/uL 07/18/2023 6:48 AM CDT [facility] RBC Count 4.43 3.80 - 5.20 10e6/uL 07/18/2023 6:48 AM CDT [facility] Hemoglobin 13.4 11.7 - 15.7 g/dL 07/18/2023 6:48 AM CDT [facility] Hematocrit 38.6 35.0 - 47.0 % 07/18/2023 6:48 AM CDT [facility] MCV 87 78 - 100 fL 07/18/2023 6:48 AM CDT [facility] MCH 30.2 26.5 - 33.0 pg 07/18/2023 6:48 AM CDT [facility] MCHC 34.7 31.5 - 36.5 g/dL 07/18/2023 6:48 AM CDT [facility] RDW 12.3 10.0 - 15.0 % 07/18/2023 6:48 AM CDT [facility] Platelet Count 228 150 - 450 10e3/uL 07/18/2023 6:48 AM CDT [facility] % Neutrophils 72 % 07/18/2023 6:48 AM CDT [facility] % Lymphocytes 18 % 07/18/2023 6:48 AM CDT [facility] % Monocytes 9 % 07/18/2023 6:48 AM CDT [facility] % Eosinophils 1 % 07/18/2023 6:48 AM CDT [facility] % Basophils 0 % 07/18/2023 6:48 AM CDT [facility] % Immature Granulocytes 0 % 07/18/2023 6:48 AM CDT [facility] NRBCs per 100 WBC 0 <1 /100 024 6:48 AM CDT [facility] Absolute Neutrophils 7.1 1.6 - 8.3 10e3/uL 07/18/2023 6:48 AM CDT [facility] Absolute Lymphocytes 1.8 0.8 - 5.3 10e3/uL 07/18/2023 6:48 AM CDT [facility] Absolute Monocytes 0.8 0.0 - 1.3 10e3/uL 07/18/2023 6:48 AM CDT [facility] Absolute Eosinophils 0.1 0.0 - 0.7 10e3/uL 07/18/2023 6:48 AM CDT [facility] Absolute Basophils 0.0 0.0 - 0.2 10e3/uL 07/18/2023 6:48 AM CDT [facility] Absolute Immature Granulocytes 0.0 <=0.4 10e3/uL 07/18/2023 6:48 AM CDT [facility] Absolute NRBCs 0.0 10e3/uL 07/18/2023 6:48 AM CDT [facility] Blood VENOUS LINE / Unknown Venipuncture / Unknown 07/18/2023 6:42 AM CDT 07/18/2023 6:46 AM CDT Ceci Salazar PA-C LAB - BLOOD ORDERABLES LABORATORY [facility] Acute Care Lab [address] Lab (1st floor, no room number) [place] [address], [facility] * (ABNORMAL) Comprehensive metabolic panel (07/18/2023 6:42 AM CDT) [facility] Signature Sodium 134(L) 135 - 145 mmol/L 07/18/2023 7:20 AM CDT LABORATORY Comment:Reference intervals for this test were updated on 11/02/2022 to more accurately reflect our healthy population. There may be differences in the flagging of prior results with similar values performed with this method. Interpretation of those prior results can be made in the context of the updated reference intervals. Potassium 4.7 3.4 - 5.3 mmol/L 07/18/2023 7:20 AM CDT LABORATORY Comment:Specimen slightly he molyzed. The reported potassium value may be falsely elevated. Analysis of a non-hemolyzed specimen (i.e. re-draw) may result in a lower potassium value. Carbon Dioxide (CO2) 20(L) 22 - 29 mmol/L 07/18/2023 7:20 AM CDT LABORATORY Anion Gap 13 7 - 15 mmol/L 07/18/2023 7:20 AM CDT LABORATORY Urea Nitrogen 6.1 6.0 - 20.0 mg/dL 07/18/2023 7:20 AM CDT LABORATORY Creatinine 0.56 0.51 - 0.95 mg/dL 07/18/2023 7:20 AM CDT LABORATORY GFR Estimate >90 >60 mL/min/1. 73m2 07/18/2023 7:20 AM CDT LABORATORY Calcium 9.4 8.6 - 10.0 mg/dL 07/18/2023 7:20 AM CDT LABORATORY Chloride 101 98 - 107 mmol/L 07/18/2023 7:20 AM CDT LABORATORY Glucose 95 70 - 99 mg/dL 07/18/2023 7:20 AM CDT [facility] Alkaline Phosphatase 46 40 - 150 U/L 07/18/2023 7:20 AM CDT [facility] AST 29 0 - 45 U/L 07/18/2023 7:20 AM CDT [facility] Comment: Specimen is hemolyzed [...] context of the updated reference intervals. ALT 10 0 - 50 U/L 07/18/2023 7:20 AM CDT [facility] Comment:Reference intervals for this test were updated on 07/19/2022 to more accurately reflect our healthy population. There may be differences in the flagging of prior results with similar values performed with this method. Interpretation of those prior results can be made in the context of the updated reference intervals. Protein Total 7.4 6.4 - 8.3 g/dL 07/18/2023 7:20 AM CDT [facility] Albumin 3.9 3.5 - 5.2 g/dL 07/18/2023 7:20 AM CDT [facility] Bilirubin Total 0.5 <=1.2 mg/dL 07/18/2023 7:20 AM CDT [facility] Blood VENOUS LINE / Unknown Venipuncture / Unknown 07/18/2023 6:42 AM CDT 07/18/2023 6:46 AM CDT Ceci Salazar PA-C LAB - BLOOD ORDERABLES [facility] Acute Care Lab [address] [facility] Lab (1st floor, no room number) [place] [address], [facility] documented in this encounter Visit Diagnoses Diagnosis Nausea and vomiting during documented in this encounter Administered Medications Inactive Administered Medications - up to 3 most recent administrations Medication Order MAR Action Action Date Dose Rate Site acetaminophen (TYLENOL) tablet 650 mg 650 mg, Oral, ONCE, On Tue07/18/23 at 0820, For 1 dose, Maximum acetaminophen dose from all sources = 75 mg/kg/day not to exceed 4 grams/day. $Given 07/18/2023 8:23 AM CDT 650 mg diphenhydrAMINE (BENADRYL) injection 25 mg 25 mg, Intravenous, ONCE, On Tue07/18/23 at 0625, For 1 dose $Given 07/18/2023 6:51 AM CDT 25 mg famotidine (PEPCID) tablet 10 mg 10 mg, Oral, ONCE, On Tue07/18/23 at 0845, For 1 dose $Given 07/18/2023 8:48 AM CDT 10 mg metoclopramide (REGLAN) injection 10 mg 10 mg, Intravenous, Administer over 2 Minutes, ONCE, On Tue07/18/23 at 0625, For 1 dose, Avoid use if patient has full bowel obstruction or perforation. Irritant. $Given 07/18/2023 6:46 AM CDT 10 mg sodium chloride 0.9% BOLUS 500 mL Intravenous, 500 mL, ONCE, at 500 mL/hr, Administer over 1 Hours, On Tue07/18/23 at 0625, For 1 dose $New Bag 07/18/2023 6:57 AM CDT 500 mLs 500 mL/hr documented in this encounter Active and Recently Administered Medications Times are shown in CDT. Scheduled Medication Order 07/16/2023 07/17/2023 07/18/2023 acetaminophen (TYLENOL) tablet 650 mg (COMPLETED) 650 mg, Oral, ONCE, On Tue07/18/23 at 0820, For 1 dose, Maximum acetaminophen dose from all sources = 75 mg/kg/day not to exceed 4 grams/day. 0823 ($Given - Provi piter: Mindy May RN - Comment: scanner and computer down) diphenhydrAMINE (BENADRYL) injection 25 mg (COMPLETED) 25 mg, Intravenous, ONCE, On Tue07/18/23 at 0625, For 1 dose 0651 ($Given - Provi piter: Magda Tovar RN) famotidine (PEPCID) tablet 10 mg (COMPLETED) 10 mg, Oral, ONCE, On Tue07/18/23 at 0845, For 1 dose 0848 ($Given - Provi piter: Mindy May RN) metoclopramide (REGLAN) injection 10 mg (COMPLETED) 10 mg, Intravenous, Administer over 2 Minutes, ONCE, On Tue07/18/23 at 0625, For 1 dose, Avoid use if patient has full bowel obstruction or perforation. Irritant. 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
--- OUTSIDE RECORDS SUMMARY | 2023-09-08 23:09 | XMS_ITS | Encounter Summary ---
Author Organization [place] Address [address] [facility] [address] Care Team Providers Care Kennel Keeper Name Role Phone [facility], [facility] Primary Care Pro vider Mary Kate Herrera PA-C Unavailable Randal Joe MD Unavailable [phone] Reason for Visit * Reason Comments Emesis During Encounter Details Date Type Department Care Team (Late st Contact Info) Description 07/08/2023 8:01 PM CDT - 07/08/2023 10:27 PM CDT Emergency [facility] Emergency Dept [address] [place] [address] Shekhar Rashid MD EMERGENCY PHYSICIAN PA [address] [place] [address] Nausea; Anxiety; First trimester Discharge Disposition: Home [...] Sign Reading Time Taken Comments Blood Pressure 122/73 07/08/2023 9:45 PM CDT Pulse 88 07/08/2023 9:45 PM CDT Temperature 36.8 ??C (98.3 ??F) 07/08/2023 7:51 PM CD T Respiratory Rate 18 07/08/2023 7:51 PM CDT Oxygen Saturation 100% 07/08/2023 10:00 PM CDT Inhaled Oxygen Concentration - - Weight 85.7 kg (188 lb 15 oz) 07/08/2023 7:51 PM CDT Height - - Body Mass Index 31.44 07/05/2023 2:34 AM CDT documented in this encounter Discharge Instructions * Attachments The following attachments cannot be sent through Care Everywhere. * : Weeks 10 to 14 ([place] Citizen) * Nausea and Vomiting ([place]) documented in this encounter Medications at Time of Discharge Medication Sig Dispensed Refills Start Date End Date hydrOXYzine (ATARAX) 25 MG tablet Take 25 mg by mouth nightly as needed 05/28/2022 Vit-Fe Fumarate-FA ( PLUS) 27-1 MG TABS Take 1 tablet by mouth daily VITAMIN D3 50 MCG (1999 UT) tablet Take 1 tablet by mouth daily acetaminophen (TYLENOL) 325 MG tabletIndications:S/P dilatation and curettage Take 1-2 tablets (325-650 mg) by mouth every 6 hours as needed for mild pain 12/27/2022 07/18/2023 ibuprofen (ADVIL/MOTRIN) 200 MG tabletIndications:S/P dilatation and curettage Take 4 tablets (800 mg) by mouth every 6 hours as needed for other (mild and/or inflammatory pain) 12/27/2022 07/18/2023 documented as of this encounter ED Notes * Abigail Rebolledo RN - 07/08/2023 9:15 PM CDT Offered IVP zofran. Patient reports she is not nauseated and does not need it and instead requestedice chips which were provided to patient. Patient now reporting feeling cold. * Abigail Rebolledo RN - 07/08/2023 9:04 PM CDT Patient appears INCREDIBLY anxious. Line placed by coworker. Entered room and started IV medications including IV fluids and phenergan. Within moments of senior technical writer exiting the room, patient placed the call light back on stating I don't feel better.... my eyes hurt... my back continues to hurt. When senior technical writer attempted to clarify what the patient was feeling, patient actively snap- chatting, ignoring staff and highly engaged with her phone. Patient requesting not to restart the IV medications. Continues to report that She doesn't feel better. But unable to verbalize her symptoms or what feels worse. Denies SOB, Rash, itchy tongue or throat feeling. Reports that she feels like she is reacting to the medication. MD updated. Vss on RA. Family at beside. * Armida Jhaveri RN - 07/08/2023 7:48 PM CDT Patient states that she is currently 9/10 weeks . States that she thinks that she may have eaten some bad brats this morning as she has been nausea and dry heaving since this morning. Has nothad any vomiting, just very nauseated. Gags anytime she tries to eat anything. ABCs intact. VSS. * Shekhar Rashid MD - 07/08/2023 7:45 PM CDT History Chief Complaint: Emesis During HPI Alisia Velasquez is a 38 year old female is 1st trimester with daily nausea and emesis that went on to eat some brats earlier that had been left out and has been belching and dry heaving since. No abd pain. No fever or chills. No actual vomiting or diarrhea. No VB VD LOF. Independent Historian: Family Review of External Notes: Medications: acetaminophen (TYLENOL) 325 MG tablet hydrOXYzine (ATARAX) 25 MG tablet ibuprofen (ADVIL/MOTRIN) 200 MG tablet Vit-Fe Fumarate-FA ( PLUS) 27-1 MG TABS VITAMIN D3 50 MCG (1999) tablet Past Medical History: Past Medical History: Diagnosis Date Arthritis Chronic depressive personality disorder Depressive disorder Other anxiety states Past Surgical History: Past Surgical History: Procedure Laterality Date APPENDECTOMY DILATION AND CURETTAGE SUCTION WITH ULTRASOUND GUIDANCE N/A 12/27/2022 Procedure: suction dilation and curettage with ultrasound guidance; Surgeon: Miranda Metzger DO; Location: OR Z NONSPECIFIC PROCEDURE 2002 [facility], [place], operated by [facility] Physical Exam Patient Vitals for the past 24 hrs: BP Temp Temp src Pulse Resp SpO2 Weight 07/08/23 2200 -- -- -- -- -- 100 % -- 07/08/23 2145 122/73 -- -- 88 -- 100 % -- 07/08/23 2130 104/88 -- -- 76 -- 100 % -- 07/08/23 2115 129/66 -- -- 77 -- 100 % -- 07/08/23 2100 (!) 118/90 -- -- 77 -- 100 % -- 07/08/231950 117/69 98.3 ??F (36.8 ??C) Oral 80 18 100 % 85.7 kg (188 lb 15 oz) Physical Exam General: Patient is well appearing. No distress. Head: Atraumatic. Eyes: Conjunctivae and EOM are normal. No scleral icterus. Neck: Normal range of motion. Neck supple. Cardiovascular: Normal rate, regular rhythm, normal heart sounds and intact distal pulses. Pulmonary/Chest: Breath sounds normal. No respiratory distress. Abdominal: Soft. Bowel sounds are normal. No distension. No tenderness. No rebound or guarding. Musculoskeletal: Normal range of motion. Skin: Warm and dry. No rash noted. Not diaphoretic. Emergency Department Course ECG Imaging: No orders to display Laboratory: Labs Ordered and Resulted from Time of ED Arrival to Time of ED Departure COMPREHENSIVE METABOLIC PANEL - Abnormal Result Value Sodium 135 Potassium 3.5 Carbon Dioxide (CO2) 20 (*) Anion Gap 15 Urea Nitrogen 7.9 Creatinine 0.54 GFR Estimate >90 Calcium 9.0 Chloride 100 Glucose 94 Alkaline Phosphatase 47 AST 9 ALT 8 Protein Total 7.2 Albumin 4.1 Bilirubin Total 0.4 ROUTINE UA WITH MICROSCOPIC REFLEX TO CULTURE - Abnormal Color Urine Light Yellow Appearance Urine Clear Glucose Urine Negative Bilirubin Urine Negative Ketones Urine Negative Specific [place] Urine 1.009 Blood Urine Negative pH Urine 6.5 Protein Albumin Urine Negative Urobilinogen Urine Normal Nitrite Urine Negative Leukocyte Esterase Urine Negative Bacteria Urine Few (*) Mucus Urine Present (*) RBC Urine 2 WBC Urine 2 Squamous Epithelials Urine 2 (*) CBC WITH PLATELETS AND DIFFERENTIAL - Abnormal WBC Count 11.3 (*) RBC Count 4.35 Hemoglobin 13.3 Hematocrit 38.2 MCV 88 MCH 30.6 MCHC 34.8 RDW 12.3 Platelet Count 234 % Neutrophils 74 % Lymphocytes 16 % Monocytes 9 % Eosinophils 1 % Basophils 0 % Immature Granulocytes 0 NRBCs per 100 WBC 0 Absolute Neutrophils 8.4 (*) Absolute Lymphocytes 1.8 Absolute Monocytes 1.1 Absolute Eosinophils 0.1 Absolute Basophils 0.0 Absolute Immature Granulocytes 0.0 Absolute NRBCs 0.0 LIPASE - Normal Lipase 36 Procedures Emergency Department Course & Assessments: Interventions: Medications promethazine (PHENERGAN) 25 mg in sodium chloride 0.9 % 55 mL intermittent infusion (0 mg Intravenous Hold 07/08/232103) ondansetron (ZOFRAN) injection 4 mg (has no administration in time range) sodium chloride 0.9% BOLUS 1,000 mL (0 mLs Intravenous Stopped 07/08/232138) Assessments: Independent Interpretation (X-rays, CTs, rhythm strip): Consultations/Discussion of Management or Tests: Social Determinants of Health affecting care: Disposition: The patient was discharged. Impression & Plan Medical Decision MakinYOF very anxious with this with daily emesis and later sx today. Did eat older brats but not toxic or ill appearing. Gastroenteritis possible but no red flags on abd exam. Normal vitals. No significant elev WBC or abnl of CMP or lipase. Not dehydrated and tolerating po here. UA no infection or signs of severe dehydration or ketouria. Strict return and follow up instructions given. Diagnosis: ICD-10-CM 1. Nausea R11.0 2. Anxiety F41.9 3. First trimester Z34.91 Discharge Medications: New Prescriptions No medications on file Shekhar Rashid MD 07/08/232206 documented in this encounter Plan of Treatment Not on file documented as of this encounter Procedures Procedure Name Priority Date/Time Associated Diagnosis Comments ROUTINE UA WITH MICROSCOPIC REFLEX TO CULTURE STAT 07/08/2023 8:53 PM CDT EXTRA TUBE STAT 07/08/2023 8:50 PM CDT EXTRA RED TOP TUBE STAT 07/08/2023 8: 50 PM CDT CBC WITH PLATELETS AND DIFFERENTIAL STAT 07/08/2023 8:50 PM CDT CBC WITH PLATELETS & DIFFERENTIAL STAT 07/08/2023 8:50 PM CDT LIPASE STAT 07/08/2023 8:50 PM CDT COMPREHENSIVE METABOLIC PANEL STAT 07/08/2023 8:50 PM CDT documented in this encounter Results * (ABNORMAL) UA with Microscopic reflex to Culture (07/08/2023 8:53 PM CDT) Color Urine Light Yellow Colorless, Straw, Light Yellow, Yellow 07/08/2023 9:19 PM CDT LABORATORY Appearance Urine Clear Clear 07/08/19 9:19 PM CDT LABORATORY Glucose Urine Negative Negative mg/dL 07/08/2023 9:19 PM CDT [facility] Bilirubin Urine Negative Negative 9:19 PM CDT [facility] Ketones Urine Negative Negative mg/dL 07/08/2023 9:19 PM CDT [facility] Specific [place] Urine 1.009 1.003 - 1.035 07/08/2023 9:19 PM CDT [facility] Blood Urine Negative Negative 07/08/2023 9:19 PM CDT LABORATORY pH Urine 6.5 5.0 - 7.0 07/08/2023 9:19 PM CDT [facility] Protein Albumin Urine Negative Negative mg/dL 07/08/2023 9:19 PM CDT [facility] Urobilinogen Urine Normal Normal, 2.0 mg/dL 07/08/2023 9:19 PM CDT [facility] Nitrite Urine Negative Negative 07/08/2023 9:19 PM CDT [facility] Leukocyte Esterase Urine Negative Negative 07/08/2023 9:19 PM CDT [facility] Bacteria Urine Few(A) None Seen /HPF 07/08/2023 9:19 PM CDT [facility] Mucus Urine Present(A) None Seen /LPF 07/08/2023 9:19 PM CDT [facility] RBC Urine 2 <=2 /HPF 07/08/2023 9:19 PM CDT [facility] WBC Urine 2 <=5 /HPF 07/08/2023 9:19 PM CDT [facility] Squamous Epithelials Urine 2(H) <=1 /HPF 07/08/2023 9:19 PM CDT LABORATORY Urine MID-STREAM URINE SPECIMEN / Unknown Non-blood Collection / Unknown 07/08/2023 8:53 PM CDT 07/08/2023 9:00 PM CDT Narrative LABORATORY - 07/08/2023 9:19 PM CDT Urine Culture not indicated Shekhar Rashid MD LAB - URINE ORDERABL ES [facility] [address] [facility] (1st floor, no room number) [place] [id number] [place] [address] * Extra Red Top Tube (07/08/2023 8:50 PM CDT) Pathologist [facility] Hold Specimen [facility] 07/08/2023 10:02 PM CDT LABORATORY Blood BLOOD SPECIMEN / Unknown Venipuncture / Unknown 07/08/2023 8:50 PM CDT 07/08/2023 8:54 PM CDT Shekhar Rashid MD LAB - BLOOD ORDERABL ES [facility] [address] Lab (1st floor, no room number) [place] [address], [facility] * (ABNORMAL) CBC with platelets and differential (07/08/2023 8:50 PM CDT) WBC Count 11.3(H) 4.0 - 11.0 10e3/uL 07/08/2023 8:58 PM CDT [facility] RBC Count 4.35 3.80 - 5.20 10e6/uL 07/08/2023 8:58 PM CDT [facility] Hemoglobin 13.3 11.7 - 15.7 g/dL 07/08/2023 8:58 PM CDT [facility] Hematocrit 38.2 35.0 - 47.0 % 07/08/2023 8:58 PM CDT [facility] MCV 88 78 - 100 fL 07/08/2023 8:58 PM CDT [facility] MCH 30.6 26.5 - 33.0 pg 07/08/2023 8:58 PM CDT [facility] MCHC 34.8 31.5 - 36.5 g/dL 07/08/2023 8:58 PM CDT [facility] RDW 12.3 10.0 - 15.0 % 07/08/2023 8:58 PM CDT [facility] Platelet Count 234 150 - 450 10e3/uL 07/08/2023 8:58 PM CDT [facility] % Neutrophils 74 % 07/08/2023 8:58 PM CDT [facility] % Lymphocytes 16 % 07/08/2023 8:58 PM CDT [facility] % Monocytes 9 % 07/08/2023 8:58 PM CDT [facility] % Eosinophils 1 % 07/08/2023 8:58 PM CDT [facility] % Basophils 0 % 07/08/2023 8:58 PM CDT [facility] % Immature Granulocytes 0 % 07/08/2023 8:58 PM CDT [facility] NRBCs per 100 WBC 0 <1 /100 024 8:58 PM CDT [facility] Absolute Neutrophils 8.4(H) 1.6 - 8.3 10e3/uL 07/08/2023 8:58 PM CDT [facility] Absolute Lymphocytes 1.8 0.8 - 5.3 10e3/uL 07/08/2023 8:58 PM CDT [facility] Absolute Monocytes 1.1 0.0 - 1.3 10e3/uL 07/08/2023 8:58 PM CDT [facility] Absolute Eosinophils 0.1 0.0 - 0.7 10e3/uL 07/08/2023 8:58 PM CDT [facility] Absolute Basophils 0.0 0.0 - 0.2 10e3/uL 07/08/2023 8:58 PM CDT [facility] Absolute Immature Granulocytes 0.0 <=0.4 10e3/uL 07/08/2023 8:58 PM CDT [facility] Absolute NRBCs 0.0 10e3/uL 07/08/2023 8:58 PM CDT [facility] Blood BLOOD SPECIMEN / Unknown Venipuncture / Unknown 07/08/2023 8:50 PM CDT 07/08/2023 8:54 PM CDT Shekhar Rashid MD LAB - BLOOD ORDERABL ES Performing Organization Address City/[facility]/ZIP Co de Phone Number [facility] [address] Lab (1st floor, no room number) [address] * Lipase (07/08/2023 8:50 PM CDT) Lipase 36 13 - 60 U/L 07/08/2023 9:33 PM CDT [facility] Blood BLOOD SPECIMEN / Unknown Venipuncture / Unknown 07/08/2023 8:50 PM CDT 07/08/2023 8:54 PM CDT Shekhar Rashid MD LAB - BLOOD ORDERABL ES Performing Organization Address [facility]/ZIP Co de Phone Number [facility] [address] Lab (1st floor, no room number) [address] * (ABNORMAL) Comprehensive metabolic panel (07/08/2023 8:50 PM CDT) Sodium 135 135 - 145 mmol/L 07/08/2023 9:33 PM CDT [facility] Comment:Reference intervals for this test were updated on 11/02/2022 to more accurately reflect our healthy population. There may be differences in the flagging of prior results with similar values performed with this method. Interpretation of those prior results can be made in the context of the updated reference intervals. Potassium 3.5 3.4 - 5.3 mmol/L 07/08/2023 9:33 PM CDT [facility] Carbon Dioxide (CO2) 20(L) 22 - 29 mmol/L 07/08/2023 9:33 PM CDT [facility] Anion Gap 15 7 - 15 mmol/L 07/08/2023 9:33 PM CDT [facility] Urea Nitrogen 7.9 6.0 - 20.0 mg/dL 07/08/2023 9:33 PM CDT [facility] Creatinine 0.54 0.51 - 0.95 mg/dL 07/08/2023 9:33 PM CDT [facility] GFR Estimate >90 >60 mL/min/1. 73m2 07/08/2023 9:33 PM CDT [facility] Calcium 9.0 8.6 - 10.0 mg/dL 07/08/2023 9:33 PM CDT [facility] Chloride 100 98 - 107 mmol/L 07/08/2023 9:33 PM CDT [facility] Glucose 94 70 - 99 mg/dL 07/08/2023 9:33 PM CDT [facility] Alkaline Phosphatase 47 40 - 150 U/L 07/08/2023 9:33 PM CDT [facility] AST 9 0 - 45 U/L 07/08/2023 9:33 PM CDT [facility] Comment:Reference intervals for this test were updated on 07/19/2022 to more accurately reflect our healthy population. There may be differences in the flagging of prior results with similar values performed with this method. Interpretation of those prior results can be made in the context of the updated reference intervals. ALT 8 0 - 50 U/L 07/08/2023 9:33 PM CDT [facility] Comment:Reference intervals for this test were updated on 07/19/2022 to more accurately reflect our healthy population. There may be differences in the flagging of prior results with similar values performed with this method. Interpretation of those prior results can be made in the context of the updated reference intervals. Protein Total 7.2 6.4 - 8.3 g/dL 07/08/2023 9:33 PM CDT [facility] Albumin 4.1 3.5 - 5.2 g/dL 07/08/2023 9:33 PM CDT [facility] Bilirubin Total 0.4 <=1.2 mg/dL 07/08/2023 9:33 PM CDT [facility] Blood BLOOD SPECIMEN / Unknown Venipuncture / Unknown 07/08/2023 8:50 PM CDT 07/08/2023 8:54 PM CDT Shekhar Rashid MD LAB - BLOOD ORDERABL ES LABORATORY [facility] [address] [facility] Lab (1st floor, no room number) [place] [address] documented in this encounter Visit Diagnoses Diagnosis Nausea Nausea alone Anxiety Anxiety state, unspecified First trimester documented in this encounter Administered Medications Inactive Administered Medications - up to 3 most recent administrations Medication Order MAR Action Action Date Dose Rate Site ondansetron (ZOFRAN) injection 4 mg 4 mg, Intravenous, EVERY 30 MIN PRN, nausea, vomiting, Administer over 2-5 Minutes, Starting on Tue07/08/23 at 2103, For 3 doses, May repeat in 30 minutes as needed, up to 3 doses. Irritant. promethazine (PHENERGAN) 25 mg in sodium chloride 0.9 % 55 mL intermittent infusion 25 mg, Intravenous, Administer over 10-15 Minutes, EVERY 6 HOURS PRN, nausea, Starting on Tue07/08/23 at 2023, Administer through a large-bore vein or via an infusing IV line at port farthest from patient's vein. Vesicant. High risk of tissue necrosis with extravasation. Administer through a large-bore vein or via a running IV line at port farthest from patient's vein. Discontinue immediately if burning or pain occurs with administration. $Given 07/08/2023 8:50 PM CDT 25 mg sodium chloride 0.9% BOLUS 1,000 mL Intravenous, 1,000 mL, ONCE, at 1,000 mL/hr, Administer over 1 Hours, On Tue07/08/23 at 2005, For 1 dose $New Bag 07/08/2023 8:51 PM CDT 1,000 mLs 1000 mL/hr documented in this encounter Active and Recently Administered Medications Times are shown in CDT. Scheduled Medication Order 07/06/2023 07/07/2023 07/08/2023 sodium chloride 0.9% BOLUS 1,000 mL (COMPLETED) Intravenous, 1,000 mL, ONCE, at 1,000 mL/hr, Administer over 1 Hours, On Tue07/08/23 at 2004, For 1 dose 2050 ($New Bag - Pro vider: Abigail Rebolledo RN)2138 (Stopped - Provider: Abigail Rebolledo RN) PRN Medication Order 07/06/2023 07/07/2023 07/08/2023 ondansetron (ZOFRAN) injection 4 mg 4 mg, Intravenous, EVERY 30 MIN PRN, nausea, vomiting, Administer over 2-5 Minutes, Starting on Tue07/08/23 at 2102, For 3 doses, May repeat in 30 minutes as needed, up to 3 doses. Irritant. 2111 (Canceled Entry - Provider: Orders Generic Provider - Comment: Automatically canceled at discontinue of medication order) promethazine (PHENERGAN) 25 mg in sodium chloride 0.9 % 55 mL intermittent infusion 25 mg, Intravenous, Administer over 10-15 Minutes, EVERY 6 HOURS PRN, nausea, Starting on Tue07/08/23 at 2023, Administer through a large-bore vein or via an infusing IV line at port farthest from patient's vein. Vesicant. High risk of tissue necrosis with extravasation. Administer through a large-bore vein or via a running IV line at port farthest from patient's vein. Discontinue immediately if burning or pain occurs with administration. 2049 ($Given - Provi piter: Abigail Rebolledo RN)2103 (Hold - Provider: Abigail Rebolledo RN - Reason: Other - Comment: please see notes. DID NOT RECIEVE more than a couple minutes of the infusion.) documented in this encounter Additional Health Concerns Assessment Noted Time PHQ-9 Depression Total Score: 6 02/07/20 21 8:10 AM ANCHORER documented as of this encounter Care Teams Kennel Keeper Relationship Specialty Start Date End Date Clinic, [facility] [address] [place] [address] PCP - General 03/02/20 Mary Kate Herrera PA-C [address] [place] [address] Assigned PCP 02/15/21 Randal Joe MD [facility] [address] [place] [address] 07/20/22 documented as of this encounter
--- OUTSIDE RECORDS SUMMARY | 2023-09-08 23:09 | XMS_ITS | Encounter Summary ---
Author Organization [place] Address [address] [place] [address] Care Team Providers Care Mud Cleaner Operator Name Role Phone Clinic, [facility] Primary Care Pro vider Mary Kate Herrera PA-C Unavailable Randal Joe MD Unavailable [phone] Mary Kate Herrera PA-C Unavailable Encounter Details Date Type Department Care Team (Late st Contact Info) Description 05/09/2021 Documentation Only INTERFACED REPORT Unknown, Provider Social [...] have Coronavirus / COVID-19? No / Unsure 05/09/2021 6:05 PM CDT documented as of this encounter [...] Total Score: 6 02/07/20 21 8:10 AM FLATWORK IRONER documented as of this encounter Care Teams Mud Cleaner Operator Relationship Specialty Start Date End Date Clinic, [facility] [address] [place] [address] PCP - General 03/02/20 Mary Kate Herrera PA-C [address] [place] [address] Assigned PCP 02/15/21 Randal Joe MD [facility] [address] [place] [address] 07/20/22 Mary Kate Herrera PA-C [address] [place] [address] Assigned Pain Medication Provider 01/01/23 03/02/23 documented as of this encounter
--- OUTSIDE RECORDS SUMMARY | 2023-09-08 23:09 | XMS_ITS | Encounter Summary ---
Author Organization [place] Address [address] [facility] [place] [address] Care Team Providers Care Armored Car Guard And Driver Name Role Phone [facility] Primary Care Pro vider Mary Kate Herrera PA-C Unavailable Randal Joe MD Unavailable Reason for Visit * Reason Comments Complications Encounter Details Date Type Department Care Team (Late st Contact Info) Description 06/11/2023 10:32 AM CDT - 06/11/2023 1:13 PM T Emergency [facility] Emergency Dept [address] [place] [address] Brianda Ratliff, PA-C [facility] [address] [place] [address] First trimester Discharge Disposition: Home or Self [...] Sign Reading Time Taken Comments Blood Pressure 121/74 06/11/2023 1:12 PM CDT Pulse 71 06/11/2023 1:12 PM CDT Temperature 37.1 ??C (98.8 ??F) 06/11/2023 10:32 AM C DT Respiratory Rate 16 06/11/2023 1:12 PM CDT Oxygen Saturation 99% 06/11/2023 1:12 PM CDT Inhaled Oxygen Concentration - - Weight - - Height - - Body Mass Index - - documented in this encounter Discharge Instructions * Discharge Instructions* Brianda Ratliff PA-C - 06/11/2023 1:03 PM CDT Thankfully hcg looks great, 28,206 and ultrasound shows single living intrauterine , hearttones present. Previous hCG may have been lab error. I encourage you to follow-up with your OB provider early next week for reassessment and to ensure that abdominal cramping is well-controlled/improving. Continue Tylenol for symptomatic relief. If you develop any worsening symptoms including worsening abdominal pain, vaginal bleeding, or other new concerns, return to ER. documented in this encounter Medications at Time [...] as of this encounter ED Notes * Haritha Miranda RN - 06/11/2023 10:34 AM CDT Pt , LMP 04/29. Pt had US done a few days ago and HCG level yesterday that showed it was dropping. Reports cramping that started this morning, denies vaginal bleeding. ABCs intact. A&OX4. Pt tearful. Triage Assessment (Adult) Row Name 06/11/23 1032 Triage Assessment Airway WDL WDL Respiratory WDL Respiratory WDL WDL Skin Circulation/Temperature WDL Skin Circulation/Temperature WDL WDL Cardiac WDL Cardiac WDL WDL Peripheral/Neurovascular WDL Peripheral Neurovascular WDL WDL Cognitive/Neuro/Behavioral WDL Cognitive/Neuro/Behavioral WDL WDL * Brianda Ratliff PA-C - 06/11/2023 10:29 AM CDT Emergency Department Note History of Present Illness Chief Complaint Complications HPI Alisia Velasquez is a 38 year old female who presents with concern for miscarriage. Patient reports that she is currently 6 weeks , last menstrual cycle 323. Patient reports being notified by her OB recently decreasing hCG level. On 06/06, hCG was 14,208, 06/09 hCG was 12,892. Estimated due date by OB is 01/31/2024. This morning, patient has developed slight abdominal cramping, described as feeling like she may be having her period soon. Denies any vaginal bleeding or discharge changes. No fever, nausea, vomiting. History of 1 miscarriage prior, last December. Also history of one full-term . Independent Historian None Review of External Notes Reviewed telephone encounter from earlier today for hCG results Ultrasound completed 06/08/2019 for the which showed live IUP Past Medical History Medical History and Problem List Past Medical History: Diagnosis Date Arthritis Chronic depressive personality disorder Depressive disorder Other anxiety states Medications acetaminophen (TYLENOL) 325 MG tablet hydrOXYzine (ATARAX) 25 MG tablet ibuprofen (ADVIL/MOTRIN) 200 MG tablet Vit-Fe Fumarate-FA ( PLUS) 27-1 MG TABS VITAMIN D3 50 MCG (1999 [place]) tablet Surgical History Past Surgical History: Procedure Laterality Date APPENDECTOMY DILATION AND CURETTAGE SUCTION WITH ULTRASOUND GUIDANCE N/A 12/27/2022 Procedure: suction dilation and curettage with ultrasound guidance; Surgeon: Miranda Metzger DO; Location: OR [facility] NONSPECIFIC PROCEDURE 2002 appy Physical Exam Patient Vitals for the past 24 hrs: BP Temp Temp src Pulse Resp SpO2 06/11/23 1033 134/75 -- -- -- -- -- 06/11/23 1032 -- 98.8 ??F (37.1 ??C) Temporal 74 18 100 % Physical Exam General: Alert and cooperative with exam. Patient in no apparent distress. Normal mentation. Tearful Head: Scalp is NC/AT Eyes: No scleral icterus, PERRL ENT: The external nose and ears are normal. Neck: Normal range of motion without rigidity. CV: Regular rate and rhythm No pathologic murmur Resp: Breath sounds are clear bilaterally Non-labored, no retractions or accessory muscle use GI: Abdomen is soft, no distension, no tenderness. No peritoneal signs MS: No lower extremity edema Skin: Warm and dry, No rash or lesions noted. Neuro: Oriented x 3. No gross motor deficits. Diagnostics Lab Results Labs Ordered and Resulted from Time of ED Arrival to Time of ED Departure BASIC METABOLIC PANEL - Abnormal Result Value Sodium 138 Potassium 3.9 Chloride 103 Carbon Dioxide (CO2) 21 (*) Anion Gap 14 Urea Nitrogen 9.6 Creatinine 0.70 GFR Estimate >90 Calcium 9.0 Glucose 89 HCG QUALITATIVE - Abnormal hCG Serum Qualitative Positive (*) HCG QUANTITATIVE - Abnormal hCG Quantitative 28,206 (*) CBC WITH PLATELETS AND DIFFERENTIAL WBC Count 9.6 RBC Count 4.65 Hemoglobin 13.9 Hematocrit 41.6 MCV 90 MCH 29.9 MCHC 33.4 RDW 12.5 Platelet Count 251 % Neutrophils 76 % Lymphocytes 15 % Monocytes 8 % Eosinophils 1 % Basophils 0 % Immature Granulocytes 0 NRBCs per 100 WBC 0 Absolute Neutrophils 7.3 Absolute Lymphocytes 1.4 Absolute Monocytes 0.7 Absolute Eosinophils 0.1 Absolute Basophils 0.0 Absolute Immature Granulocytes 0.0 Absolute NRBCs 0.0 Imaging US OB < 14 Weeks w Transvaginal Final Result IMPRESSION: 1. Single living intrauterine gestation at 6 weeks 3 days, EDC 02/04/2024. Independent Interpretation None ED Course Medications Administered Medications acetaminophen (TYLENOL) tablet 500 mg (500 mg Oral $Given 06/11/23 1049) Procedures Procedures Discussion of Management None Social Determinants of Health adding to complexity of care None ED Course Medical Decision Making / Diagnosis [facility] Diagnoses: None MIPS None [facility] Alisia Velasquez is a 38 year old female who presents with concern for miscarriage. hCG noted to be decreasing with OB clinic, 14,208 on 06/06, 12,892 on 06/09. On exam, patient does not have any abdominal tenderness to palpation. Does endorse abdominal cramping, similar to that of a period. Denies any nausea, vomiting, fever. No vaginal bleeding. Ultrasound was obtained and shows single intrauterine , living, heart tones present. Hemoglobin is normal and hCG is 28,206 today. Isuspect there may have been lab error causing hCG discrepancy however I encouraged patient to follow-up with her OB team early next week for reassessment to ensure that symptoms are well-controlled and that hCG continues to increase appropriately. Patient voiced understanding agreement with this plan. No evidence of miscarriage at this time. Reasons to return to ER discussed. Patient is safe for discharge home. Disposition The patient was discharged. ICD-10 Codes: ICD-10-CM 1. First trimester Z34.91 Discharge Medications New Prescriptions No medications on file Brianda Ratliff PA-C [employer] Brianda Ratliff PA-C 06/11/23 1307 documented in this encounter Plan of Treatment Not on file documented as of this encounter Procedures Procedure Name Priority Date/Time Associated Diagnosis Comments US OB <14 WEEKS WITH TRANSVAGINAL SINGLE STAT 06/11/2023 11:28 AM CDT CBC WITH PLATELETS AND DIFFERENTIAL STAT 06/11/2023 10:50 AM CDT CBC WITH PLATELETS & DIFFERENTIAL STAT 06/11/2023 10:50 AM CDT HCG QUALITATIVE STAT 06/11/2023 10:50 AM CDT HCG QUANTITATIVE STAT 06/11/2023 10:50 AM CDT BASIC METABOLIC PANEL STAT 06/11/2023 10:50 AM CDT documented in this encounter Results * US OB < 14 Weeks w Transvaginal (06/11/2023 11:28 AM CDT) Anatomical Region Laterality Modality Abdomen/Pelvis Ultrasound 06/11/2023 11:2 8 AM CDT Impressions 06/11/2023 11:50 AM CDT IMPRESSION: 1. ??Single living intrauterine gestation at 6 weeks 3 days, EDC 02/04/2024. Narrative 06/11/2023 11:50 AM CDT EXAM: US OB <14 WEEKS WITH TRANSVAGINAL SINGLE LOCATION: [facility] DATE: 06/11/2023 INDICATION: 6 weeks , [...] OB <14 WEEKS WITH TRANSVAGINAL SINGLE LOCATION: [facility] DATE: 06/11/2023 INDICATION: 6 weeks , [...] at 6 weeks 3 days, EDC02/04/2024. Brianda PINEDA US ORDERABLES * (ABNORMAL) HCG QUANTitative (blood) (06/11/2023 10:50 AM CDT) hCG Quantitative 28,206(H) <5 mIU/mL 06/11/19 12:49 PM CDT [facility] Comment: Adult: 0-5 mIU/mL for healthy non- person Neonates: Should be within normal ranges by 2 days after Blood STRUCTURE OF LEFT UPPER LIMB / Unknown Venipuncture / Unknown 06/11/2023 10:50 AM CDT 06/11/2023 10:56 AM CDT Brianda Ratliff PA-C LAB - BLOOD ORDERABL ES [facility] [address] Lab (1st floor, no room number) [place] [address], [facility] * CBC with platelets and differential (06/11/2023 10:50 AM CDT) WBC Count 9.6 4.0 - 11.0 10e3/uL 06/11/2023 10:59 AM CDT [facility] RBC Count 4.65 3.80 - 5.20 10e6/uL 06/11/2023 10:59 AM CDT [facility] Hemoglobin 13.9 11.7 - 15.7 g/dL 06/11/2023 10:59 AM CDT [facility] Hematocrit 41.6 35.0 - 47.0 % 06/11/2023 10:59 AM CDT [facility] MCV 90 78 - 100 fL 06/11/2023 10:59 AM CDT [facility] MCH 29.9 26.5 - 33.0 pg 06/11/2023 10:59 AM CDT [facility] MCHC 33.4 31.5 - 36.5 g/dL 06/11/2023 10:59 AM CDT [facility] RDW 12.5 10.0 - 15.0 % 06/11/2023 10:59 AM CDT [facility] Platelet Count 251 150 - 450 10e3/uL 06/11/2023 10:59 AM CDT [facility] % Neutrophils 76 % 06/11/2023 10:59 AM CDT [facility] % Lymphocytes 15 % 06/11/2023 10:59 AM CDT [facility] % Monocytes 8 % 06/11/2023 10:59 AM CDT [facility] % Eosinophils 1 % 06/11/2023 10:59 AM CDT [facility] % Basophils 0 % 06/11/2023 10:59 AM CDT [facility] % Immature Granulocytes 0 % 06/11/2023 10:59 AM CDT [facility] NRBCs per 100 WBC 0 <1 /100 024 10:59 AM CDT [facility] Absolute Neutrophils 7.3 1.6 - 8.3 10e3/uL 06/11/2023 10:59 AM CDT [facility] Absolute Lymphocytes 1.4 0.8 - 5.3 10e3/uL 06/11/2023 10:59 AM CDT [facility] Absolute Monocytes 0.7 0.0 - 1.3 10e3/uL 06/11/2023 10:59 AM CDT [facility] Absolute Eosinophils 0.1 0.0 - 0.7 10e3/uL 06/11/2023 10:59 AM CDT [facility] Absolute Basophils 0.0 0.0 - 0.2 10e3/uL 06/11/2023 10:59 AM CDT [facility] Absolute Immature Granulocytes 0.0 <=0.4 10e3/uL 06/11/2023 10:59 AM CDT [facility] Absolute NRBCs 0.0 10e3/uL 06/11/2023 10:59 AM CDT [facility] Blood STRUCTURE OF LEFT UPPER LIMB / Unknown Venipuncture / Unknown 06/11/2023 10:50 AM CDT 06/11/2023 10:56 AM CDT Brianda Ratliff PA-C LAB - BLOOD ORDERABL ES [facility] [address] Lab (1st floor, no room number) [place] [address], [facility] * (ABNORMAL) HCG QUALitative (blood) (06/11/2023 10:50 AM CDT) hCG Serum Qualitative Positive( A) Negative NICOLLE 06/11/2023 11:15 AM CDT [facility] Comment:This test is for scr eening purposes. Results should be interpreted along with the clinical picture. Confirmation testing is available if warranted by ordering [id number], HCG Quantitative . Blood STRUCTURE OF LEFT UPPER LIMB / Unknown Venipuncture / Unknown 06/11/2023 10:50 AM CDT 06/11/2023 10:56 AM CDT Brianda Ratliff PA-C LAB - BLOOD ORDERABL ES [facility] [address] Lab (1st floor, no room number) [place] [address] * (ABNORMAL) Basic metabolic panel (06/11/2023 10:50 AM CDT) Sodium 138 135 - 145 mmol/L 06/11/2023 11:20 AM CDT [facility] Comment:Reference intervals for this test were updated on 11/02/2022 to more accurately reflect our healthy population. There may be differences in the flagging of prior results with similar values performed with this method. Interpretation of those prior results can be made in the context of the updated reference intervals. Potassium 3.9 3.4 - 5.3 mmol/L 06/11/2023 11:20 AM CDT [facility] Chloride 103 98 - 107 mmol/L 06/11/2023 11:20 AM CDT [facility] Carbon Dioxide (CO2) 21(L) 22 - 29 mmol/L 06/11/2023 11:20 AM CDT [facility] Anion Gap 14 7 - 15 mmol/L 06/11/2023 11:20 AM CDT [facility] Urea Nitrogen 9.6 6.0 - 20.0 mg/dL 06/11/2023 11:20 AM CDT [facility] Creatinine 0.70 0.51 - 0.95 mg/dL 06/11/2023 11:20 AM CDT [facility] GFR Estimate >90 >60 mL/min/1. 73m2 06/11/2023 11:20 AM CDT [facility] Calcium 9.0 8.6 - 10.0 mg/dL 06/11/2023 11:20 AM CDT [facility] Glucose 89 70 - 99 mg/dL 06/11/2023 11:20 AM CDT [facility] Blood STRUCTURE OF LEFT UPPER LIMB / Unknown Venipuncture / Unknown 06/11/2023 10:50 AM CDT 06/11/2023 10:56 AM CDT Brianda Ratliff PA-C LAB - BLOOD ORDERABL ES [facility] [address] [facility] [address] [facility] (1st floor, no room number) [place] [address], [facility] documented in this encounter Visit Diagnoses Diagnosis First trimester documented in this encounter Administered Medications Inactive Administered Medications - up to 3 most recent administrations Medication Order MAR Action Action Date Dose Rate Site acetaminophen (TYLENOL) tablet 500 mg 500 mg, Oral, EVERY 4 HOURS PRN, fever, Starting on 06/11/23 at 1043, Maximum acetaminophen dose from all sources = 75 mg/kg/day not to exceed 4 gram $Given 06/11/2023 10:49 AM CDT 500 mg documented in this encounter Active and Recently Administered Medications Times are shown in CDT. PRN Medication Order 06/09/2023 06/10/2023 06/11/2023 acetaminophen (TYLENOL) tablet 500 mg 500 mg, Oral, EVERY 4 HOURS PRN, fever, Starting on 06/11/23 at 1043, Maximum acetaminophen dose from all sources = 75 mg/kg/day not to exceed 4 gram 1049 ($Given - Provi piter: Yoanna Harris RN) documented in this encounter Additional Health Concerns Assessment Noted Time PHQ-9 Depression Total Score: 6 02/07/20 21 8:10 AM HIDE EXAMINER documented as of this encounter Care Teams Armored Car Guard And Driver Relationship Specialty Start Date End Date [facility] [address] [place] [address] PCP - General 03/02/20 Mary Kate Herrera PA-C [address] [place] [address] Assigned PCP 02/15/21 Randal Joe MD [facility] [address] [place] [address] 07/20/22 documented as of this encounter
--- OUTSIDE RECORDS SUMMARY | 2023-09-08 23:09 | XMS_ITS | Encounter Summary ---
Author Organization [place] Address [address] [facility] [place] [address] Care Team Providers Care Owner Operator Tanker Truck Driver Name Role Phone [facility] Tracy Dorado MD Unavailable [phone] [facility] Primary Care Pro vider Jasvir Montoya MD Unavailable [phone] Mary Kate Herrera PA-C Unavailable Randal Joe MD Unavailable [phone] Mary Kate Herrera PA-C Unavailable Encounter Details Date Type Department Care Team (Late st Contact Info) Description 10/22/2019 MyC Medical Advice [facility] [address] [place] [address] Kathie Vanessa Social History Tobacco Use Types Packs/Day Years Used Date Smoking Tobacco: Former Cigarettes 1 13 0 07/08/1999 - 07/07/2012 Smokeless Tobacco: Never Comments:used to smoke 1 PPD x 11 yr Alcohol Use Standard Drinks/Week Comments Yes 0 (1 standard drink = 0.6 oz pur e alcohol) occ PHQ-2 Answer Date Recorded PHQ-2 Score 0 08/07/2019 Sex and Gender Information Value Date Recorded Sex Assigned at Not on file Gender Identity Not on file Sexual Orientation Not on file documented as of this encounter Miscellaneous Notes * Telephone Encounter - Cristina Adan RN - 10/22/2019 3:54 PM CDT Routed to correct clinic Cristina Adan RN [facility] documented in this encounter Plan of Treatment Not on file documented as of this encounter Visit Diagnoses Not on filedocumented in this encounter Additional Health Concerns Infection Onset Date Last Indicated Resolved Time Rule Out COVID-19 01/19/2021 01/19/2021 01/19/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 Rule Out C-difficile 05/09/2021 05/10/2021 022 1:18 PM CDT C-difficile 05/10/2021 05/10/2021 06/09/2021 11:4 1 PM CDT Assessment Noted Time PHQ-9 Depression Total Score: 3 08/07/19 20 4:15 PM CDT documented as of this encounter Care Teams Owner Operator Tanker Truck Driver Relationship Specialty Start Date End Date [facility] - [facility] [address] [place] [address] PCP - General 01/08/19 03/01/20 [facility], [address] [address] PCP - General 03/02/20 [place] [address] [place] [address] Assigned PCP 10/21/19 07/02/20 [place] [address] [place] [address] Assigned PCP 07/03/20 02/14/21 Mary Kate Herrera PA-C [address] [place] [address] Assigned PCP 02/15/21 Randal Joe MD [facility] [address] [place] [address] 07/20/22 Mary Kate Herrera PA-C [address] [place] [address] Assigned Pain Medication Provider 01/01/23 03/02/23 documented as of this encounter
--- OUTSIDE RECORDS SUMMARY | 2023-09-08 23:09 | XMS_ITS | Encounter Summary ---
Author Organization [facility] Address [address] [facility] [place] [address] Care Team Providers Care Sample Display Preparer Name Role Phone [facility], [facility] Primary Care Pro vider Mary Kate Herrera PA-C Unavailable Randal Joe MD Unavailable Reason for Visit * Reason Comments Vaginal Bleeding - Encounter Details Date Type Department Care Team (Late st Contact Info) Description 07/05/2023 2:36 AM CDT - 07/05/2023 5:51 AM CDT [facility] Emergency Dept [address] [place] [address] Miranda Estrada MD [facility] [address] [place], [place] [id number] Vaginal bleeding affecting early ; Subchorionic hematoma in first trimester, single or unspecified fetus Discharge Disposition: Home or Self Care Social [...] Sign Reading Time Taken Comments Blood Pressure 118/68 07/05/2023 5:42 AM CDT Pulse 75 07/05/2023 5:42 AM CDT Temperature 36.6 ??C (97.8 ??F) 07/05/2023 2:34 AM CD T Respiratory Rate 16 07/05/2023 2:34 AM CDT Oxygen Saturation 100% 07/05/2023 5:43 AM CDT Inhaled Oxygen Concentration - - Weight 86.4 kg (190 lb 7.6 oz) 07/05/2023 2:34 A M CDT Height 165.1 cm (5' 5) 07/05/2023 2:34 AM CDT Body Mass Index 31.7 07/05/2023 2:34 AM CDT documented in this encounter Discharge Instructions * Discharge Instructions* Miranda Estrada MD - 07/05/2023 5:35 AM CDT Please see your PCP or OB in the next 2-3 days Return to the ED if notice increasing bleeding, bleeding through >1 pad per hour for more than 1 hour, lightheaded or dizzy, abdominal pain or other acute changes. Discharge Instructions Vaginal Bleeding in Bleeding in early can be a sign of a miscarriage or an abnormal , but often is innocent and the will continue normally. We may do blood tests and ultrasound to try to determine what is causing the bleeding, but sometimes we are unable to tell. If this is the case, it will often require more time, more blood tests, and another ultrasound. Generally, every Emergency Department visit should have a follow-up clinic visit with either a primary or a specialty clinic/provider. Please follow-up as instructed by your emergency provider today. Return to the Emergency Department if: You have severe abdominal (belly) or pelvic pain. You faint, or feel lightheaded or dizzy. Your bleeding gets much worse. You pass any tissue--solid material that does not look like a blood clot. If you pass tissue, save it (even if you have to pull it out of the toilet) and put it in a plastic bag or jar and bring it in. You have a fever of 100.5??F or higher. If no could be seen: It may be that everything is normal and it is just too early to see the . It is also possible that you could have an ectopic , which is a in an abnormal location, such as in the tube (???tubal ?? ). We don???t see evidence that this is likely today but we cannot exclude it with certainty until a can be seen in the uterus (womb) and an ectopic can cause severe internal bleeding or so follow-up is very important. You should not be alone, in case you suddenly become very sick. You should not have sex or put anything in your vagina. If a was seen in your uterus: If a heartbeat could be seen, the chance of miscarriage is lower but because you had bleeding the chance of a miscarriage still exists. You should not have sex or put anything in your vagina. Follow-up as directed with your [facility] provider. Facts about miscarriage: We hope you do not have a miscarriage, but if you do, here are important things to know: Early miscarriage is very common, and having one miscarriage does not mean you will have problems with another . Nothing you did caused it. Taking medicine, drinking alcohol, having sex, exercising, or falling down will not cause a miscarriage. If you were given a prescription for [...] if there is anything that worries you. documented in this encounter Medications at Time of Discharge Medication Sig Dispensed Refills Start Date End Date hydrOXYzine (ATARAX) 25 MG tablet Take 25 mg by mouth nightly as needed 05/28/2022 Vit-Fe Fumarate-FA ( PLUS) 27-1 MG TABS Take 1 tablet by mouth daily VITAMIN D3 50 MCG (1999) tablet Take [...] as of this encounter ED Notes * Jumana Guzman RN - 07/05/2023 5:46 AM CDT Pt discharged. IV line removed. Discharged instructions with papers given. Pt ambulatory. * Rhianna Rosario RN - 07/05/2023 2:33 AM CDT 9w . Had intercourse at 0220 and started having vaginal bleeding afterwards. No pain. * Miranda Estrada MD - 07/05/2023 2:31 AM CDT Emergency Department Note History of Present Illness Chief Complaint Vaginal Bleeding - HPI Alisia Velasquez is a 38 year old female who presents to the emergency department for vaginal bleeding. Patient reports that she had intercourse with her arely. After intercourse she went to use the restroom and noticed blood when wiping. She reports it is bright red. She put a pad in and has had only mild spotting. She was seen about a week ago and was diagnosed as a subchorionic hematoma. She denies any pain, lightheadedness, dizziness. Denies any discharge. Independent Historian None Review of External Notes Reviewed nurse call and notes from 06/27/2023 Past Medical History Medical History and Problem [...] guidance; Surgeon: Miranda Metzger DO; Location: [facility] NONSPECIFIC PROCEDURE 2002 [facility] Physical Exam Patient Vitals for the past 24 hrs: BP Temp Pulse Resp SpO2 Height Weight 07/05/23 0543 -- -- -- -- 100 % -- -- 07/05/23 0542 118/68 -- 75 -- -- -- -- 07/05/23 0234 126/81 97.8 ??F (36.6 ??C) 84 16 100 % 1.651 m (5' 5) 86.4 kg (190 lb 7.6 oz) Physical Exam General: Resting on the bed. Head: No obvious trauma to head. Ears, Nose, Throat: External ears normal. Nose normal. Neck: Normal range of motion. Neck supple. CV: Regular rate and rhythm. No murmurs. Respiratory: Effort normal and breath sounds normal. No wheezing or crackles. Gastrointestinal: Soft. No distension. There is no tenderness. There is no rigidity, no rebound andno guarding. Neuro: Alert. Moving all extremities appropriately. Normal speech. Skin: Skin is warm and dry. No rash noted. Pelvic: Normal external genitalia. No lesions or trauma. Normal appearing cervix without CMT or adnexal tenderness. Mild bleeding from cervix. Diagnostics Lab Results Labs Ordered and Resulted from Time of ED Arrival to Time of ED Departure ROUTINE UA WITH MICROSCOPIC REFLEX TO CULTURE - Abnormal Result Value Color Urine Light Yellow Appearance Urine Clear Glucose Urine Negative Bilirubin Urine Negative Ketones Urine Negative Specific Altus Urine 1.018 Blood Urine Large (*) pH Urine 5.5 Protein Albumin Urine Negative Urobilinogen Urine Normal Nitrite Urine Negative Leukocyte Esterase Urine Negative Bacteria Urine Few (*) Mucus Urine Present (*) RBC Urine 22 (*) WBC Urine 1 Squamous Epithelials Urine <1 HCG QUANTITATIVE - Abnormal hCG Quantitative 53,109 (*) CBC WITH PLATELETS AND DIFFERENTIAL WBC Count 10.9 RBC Count 4.41 Hemoglobin 13.2 Hematocrit 39.1 MCV 89 MCH 29.9 MCHC 33.8 RDW 12.4 Platelet Count 211 % Neutrophils 71 % Lymphocytes 19 % Monocytes 9 % Eosinophils 1 % Basophils 0 % Immature Granulocytes 0 NRBCs per 100 WBC 0 Absolute Neutrophils 7.7 Absolute Lymphocytes 2.1 Absolute Monocytes 0.9 Absolute Eosinophils 0.1 Absolute Basophils 0.0 Absolute Immature Granulocytes 0.0 Absolute NRBCs 0.0 TYPE AND SCREEN, ADULT ABO/RH(D) A POS Antibody Screen Negative SPECIMEN EXPIRATION DATE [id number] ABO/RH TYPE AND SCREEN Imaging US OB < 14 Weeks Single Final Result IMPRESSION: 1. Single living intrauterine gestation at 10 weeks 3 days by crown-rump length measurement, EDC 01/28/2024. 2. Small subchorionic hematoma measuring 2.4 cm. Independent Interpretation None ED Course Medications Administered Medications - No data to display Procedures Procedures Discussion of Management None Social Determinants of Health adding to complexity of care None ED Course ED Course as of 07/05/23 0747 e July 05, 2023 0535 I performed a chaperoned pelvic exam. Medical Decision Making / Diagnosis [facility] Diagnoses: None MIPS None [facility] Alisia Velasquez is a 38 year old female who presents to the emergency department for vaginal spotting. Vital signs are reassuring. Broad differential was pursued including not limited to miscarriage, heterotopic, ectopic, subchorionic hematoma, trauma, laceration, etc. CBC without leukocytosis or anemia. A positive no RhoGAM indicated. UA with blood but no signs of infection. Ultrasound shows IUP. Subchorionic hematoma. Pelvic exam revealed no trauma, laceration etc. Suspect bleeding is from subchorionic hematoma. Advise close follow-up with [facility]. Return precautions including worsening pain or bleeding were advised. Patient was agreeable. Disposition The patient was discharged. ICD-10 Codes: ICD-10-CM 1. Vaginal bleeding affecting early O20.9 2. Subchorionic hematoma in first trimester, single or unspecified fetus O41.8X10 O46.8X1 Discharge Medications Discharge Medication List as of 07/05/2023 5:38 AM MD Sean Rowan Jennifer L, MD 07/05/23 0749 documented in this encounter Plan of Treatment Not on file documented as of this encounter Procedures Procedure Name Priority Date/Time Associated Diagnosis Comments US OB < 14 WEEKS SINGLE-TRANSABDOMINAL STAT 07/05/2023 4:40 AM CDT CBC WITH PLATELETS AND DIFFERENTIAL STAT 07/05/2023 3:30 AM CDT TYPE AND SCREEN, ADULT STAT 07/05/2023 3:30 AM CDT CBC WITH PLATELETS & DIFFERENTIAL STAT 07/05/2023 3:30 AM CDT HCG QUANTITATIVE STAT 07/05/2023 3:30 AM CDT ABO/RH TYPE AND SCREEN STAT 07/05/2023 3:30 AM CDT ROUTINE UA WITH MICROSCOPIC REFLEX TO CULTURE STAT 07/05/2023 2:46 AM CDT documented in this encounter Results * US OB < 14 Weeks Single (07/05/2023 4:40 AM CDT) Anatomical Region Laterality Modality Abdomen/Pelvis Ultrasound 07/05/2023 4:40 AM CDT Impressions 07/05/2023 4:43 AM CDT IMPRESSION: 1. ??Single living intrauterine gestation at 10 weeks 3 days by crown-rump length measurement, EDC 01/28/2024. 2. ??Small subchorionic hematoma measuring 2.4 cm. Narrative 07/05/2023 4:43 AM CDT EXAM: US OB < 14 WEEKS SINGLE-TRANSABDOMINAL LOCATION: [facility] DATE: 07/05/2023 INDICATION: Bleeding during . [...] US OB < 14 WEEKS SINGLE-TRANSABDOMINAL LOCATION: [facility] DATE: 07/05/2023 INDICATION: Bleeding during . [...] hematoma measuring 2.4 cm. Miranda Estrada MD [facility] US ORDERABLES * Adult Type and Screen (07/05/2023 3:30 AM CDT) ABO/RH(D) A POS 07/05/2023 3:15 AM CDT [facility] BLOOD BANK Antibody Screen Negative Negative 07/05/2023 3:15 AM CDT RH BLOOD BANK SPECIMEN EXPIRATION DATE [id number] 07/05/2023 3:15 AM CDT [facility] Blood BLOOD SPECIMEN / Unknown Venipuncture / Unknown 07/05/2023 3:30 AM CDT 07/05/2023 3:34 AM CDT Miranda Estrada MD LAB - BLOOD BANK T EST ORDER BLOOD BANK [address] [place] [address], [facility] * CBC with platelets and differential (07/05/2023 3:30 AM CDT) WBC Count 10.9 4.0 - 11.0 10e3/uL 07/05/2023 3:40 AM CDT [facility] RBC Count 4.41 3.80 - 5.20 10e6/uL 07/05/2023 3:40 AM CDT [facility] Hemoglobin 13.2 11.7 - 15.7 g/dL 07/05/2023 3:40 AM CDT [facility] Hematocrit 39.1 35.0 - 47.0 % 07/05/2023 3:40 AM CDT [facility] MCV 89 78 - 100 fL 07/05/2023 3:40 AM CDT [facility] MCH 29.9 26.5 - 33.0 pg 07/05/2023 3:40 AM CDT [facility] MCHC 33.8 31.5 - 36.5 g/dL 07/05/2023 3:40 AM CDT [facility] RDW 12.4 10.0 - 15.0 % 07/05/2023 3:40 AM CDT [facility] Platelet Count 211 150 - 450 10e3/uL 07/05/2023 3:40 AM CDT [facility] % Neutrophils 71 % 07/05/2023 3:40 AM CDT [facility] % Lymphocytes 19 % 07/05/2023 3:40 AM CDT [facility] % Monocytes 9 % 07/05/2023 3:40 AM CDT [facility] % Eosinophils 1 % 07/05/2023 3:40 AM CDT [facility] % Basophils 0 % 07/05/2023 3:40 AM CDT [facility] % Immature Granulocytes 0 % 07/05/2023 3:40 AM CDT [facility] NRBCs per 100 WBC 0 <1 /100 024 3:40 AM CDT [facility] Absolute Neutrophils 7.7 1.6 - 8.3 10e3/uL 07/05/2023 3:40 AM CDT [facility] Absolute Lymphocytes 2.1 0.8 - 5.3 10e3/uL 07/05/2023 3:40 AM CDT [facility] Absolute Monocytes 0.9 0.0 - 1.3 10e3/uL 07/05/2023 3:40 AM CDT [facility] Absolute Eosinophils 0.1 0.0 - 0.7 10e3/uL 07/05/2023 3:40 AM CDT [facility] Absolute Basophils 0.0 0.0 - 0.2 10e3/uL 07/05/2023 3:40 AM CDT [facility] Absolute Immature Granulocytes 0.0 <=0.4 10e3/uL 07/05/2023 3:40 AM CDT [facility] Absolute NRBCs 0.0 10e3/uL 07/05/2023 3:40 AM CDT [facility] Blood BLOOD SPECIMEN / Unknown Venipuncture / Unknown 07/05/2023 3:30 AM CDT 07/05/2023 3:34 AM CDT Miranda Estrada MD LAB - BLOOD [facility] [address] [employer] Lab (1st floor, no room number) [address] [place] [address] * (ABNORMAL) HCG quantitative (07/05/2023 3:30 AM CDT) hCG Quantitative 53,109(H) <5 mIU/mL 07/05/19 24 4:59 AM CDT [facility] Comment: Adult: 0-5 mIU/mL for healthy non- person Neonates: Should be within normal ranges by 2 days after Blood BLOOD SPECIMEN / Unknown Venipuncture / Unknown 07/05/2023 3:30 AM CDT 07/05/2023 3:34 AM CDT Miranda Estrada MD LAB - BLOOD [facility] [address] [employer] [facility] (1st floor, no room number) [address] [place] [address] * (ABNORMAL) UA with Microscopic reflex to Culture (07/05/2023 2:46 AM CDT) Color Urine Light Yellow Colorless, Straw, Light Yellow, Yellow 07/05/2023 3:13 AM CDT LABORATORY Appearance Urine Clear Clear 07/05/19 3:13 AM CDT [facility] Glucose Urine Negative Negative mg/dL 07/05/2023 3:13 AM CDT [facility] Bilirubin Urine Negative Negative 3:13 AM CDT [facility] Ketones Urine Negative Negative mg/dL 07/05/2023 3:13 AM CDT [facility] Specific Altus Urine 1.018 1.003 - 1.035 07/05/2023 3:13 AM CDT [facility] Blood Urine Large(A) Negative 07/05/2023 3:13 AM CDT [facility] pH Urine 5.5 5.0 - 7.0 07/05/2023 3:13 AM CDT [facility] Protein Albumin Urine Negative Negative mg/dL 07/05/2023 3:13 AM CDT [facility] Urobilinogen Urine Normal Normal, 2.0 mg/dL 07/05/2023 3:13 AM CDT [facility] Nitrite Urine Negative Negative 07/05/2023 3:13 AM CDT [facility] Leukocyte Esterase Urine Negative Negative 07/05/2023 3:13 AM CDT [facility] Bacteria Urine Few(A) None Seen /HPF 07/05/2023 3:13 AM CDT LABORATORY Mucus Urine Present(A) None Seen /LPF 07/05/2023 3:13 AM CDT [facility] RBC Urine 22(H) <=2 /HPF 07/05/2023 3:13 AM CDT [facility] WBC Urine 1 <=5 /HPF 07/05/2023 3:13 AM CDT [facility] Squamous Epithelials Urine <1 <=1 /HPF 07/05/2023 3:13 AM CDT [facility] Urine URINE SPECIMEN / Unknown Non-blood Collection / Unknown 07/05/2023 2:46 AM CDT 07/05/2023 2:49 AM CDT Narrative [facility] - 07/05/2023 3:13 AM CDT Urine Culture not indicated Miranda Estrada MD LAB - URINE [facility] [address] Lab (1st floor, no room number) [place] [address], [facility] documented in this encounter Visit Diagnoses Diagnosis Vaginal bleeding affecting early Subchorionic hematoma in first trimester, single or unspecified fetus documented in this encounter Additional Health Concerns Assessment Noted Time PHQ-9 Depression Total Score: 6 02/07/20 21 8:10 AM 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
--- OUTSIDE RECORDS SUMMARY | 2023-09-08 23:09 | XMS_ITS | Encounter Summary ---
Author Organization [place] Address [address] [facility] [place] [address] Care Team Providers Care Microwave Remote Sensing Scientist Name Role Phone [facility] Primary Care Pro vider Mary Kate Herrera PA-C Unavailable Randal Joe MD Unavailable Reason for Visit * Reason Comments Threatened Miscarriage Encounter Details Date Type Department Care Team (Late st Contact Info) Description 06/26/2023 6:36 PM CDT - 06/26/2023 8:49 PM CDT Emergency [facility] Emergency Dept [address] [place] [address] Ivan Grace PA-C [facility] [address] [place] [place], [place] [id number] Subchorionic hemorrhage of placenta in first trimester [...] Sign Reading Time Taken Comments Blood Pressure 128/79 06/26/2023 8:49 PM CDT Pulse 68 06/26/2023 8:49 PM CDT Temperature 36.6 ??C (97.9 ??F) 06/26/2023 6:13 PM CD T Respiratory Rate 18 06/26/2023 8:49 PM CDT Oxygen Saturation 99% 06/26/2023 8:49 PM CDT Inhaled Oxygen Concentration - - Weight 85 kg (187 lb 6.3 oz) 06/26/2023 6:12 PM CDT Height 165.1 cm (5' 5) 06/26/2023 8:48 PM CDT Body Mass Index 31.18 06/26/2023 6:12 PM CDT documented in this encounter Discharge Instructions * Discharge Instructions* Ivan Grace PA-C - 06/26/2023 8:25 PM CDT Use Tylenol 1000mg every 8 hours for pain. Monitor amount of bleeding. With significant worsening (multiple pads for a few hours) ,call OBGYN or return. * Attachments The following attachments cannot be sent through Care Everywhere. * : Subchorionic Hematoma (Sol[place] Islander) documented in this encounter Medications at Time [...] as of this encounter ED Notes * Caleb Lawson RN - 06/26/2023 6:12 PM CDT 8 weeks . Having dark brown discharge. Having period cramping type pain and bilateral kidney pain. Has had an ultrasound already that was normal. * Ivan Grace PA-C - 06/26/2023 6:08 PM CDT Emergency Department Note History of Present Illness Chief Complaint Threatened Miscarriage HPI Alisia Velasquez is a 38 year old female, , who presents to the ED with her forevaluation of threatened miscarriage. Patient reports she is currently 8 weeks and has been having dark brown vaginal discharge for over 24 hours. She called the on-call nurse who referred her to the ED. Alisia has felt dehydrated and notes dark urine despite drinking a lot of fluids. Rep orts bilateral kidney pain and suprapubic pain that feels similar to period cramps. She notes increased urinary output likely secondary to increased fluid intake. She did not take any medications for pain management. Notable reported history of kidney infection. Endorses subjective fever, chills,and intermittent nausea and vomiting with . Denies dysuria. Patient reports a history of 1prior miscarriage in December and this is her second . Independent Historian None as detailed above. Review of External Notes OB intake phone call on 06/24/23 Past Medical History Medical History and Problem List Arthritis Chronic depressive personality disorder Depressive disorder Anxiety Tobacco use Obesity Chronic joint pain Vitamin D deficiency Insomnia Chronic migraine Panic disorder Heartburn IBS UTI Medications Hydroxyzine Vit-Fe Fumarate-FA Surgical History Appendectomy Dilation and curettage suction with ultrasound guidance Physical Exam Patient Vitals for the past 24 hrs: BP Temp Pulse Resp SpO2 Weight 06/26/231812 134/73 97.9 ??F (36.6 ??C) 78 20 100 % -- 06/26/231811 -- -- -- -- -- 85 kg (187 lb 6.3 oz) Physical Exam Constitutional: Pleasant. Cooperative. Eyes: Pupils equally round and reactive HENT: Head is normal in appearance. Oropharynx is normal with moist mucus membranes. Cardiovascular: Regular rate and rhythm and without murmurs. Respiratory: Normal respiratory effort, lungs are clear bilaterally. GI: Mild suprapubic TTP, otherwise non-tender, soft, non-distended. No guarding, rebound, or rigidity. Musculoskeletal: No asymmetry of the lower extremities. Mild TTP to bilateral lower back. No CVA TTP. Skin: Normal, without rash. Neurologic: Cranial nerves grossly intact, normal cognition, no focal deficits. Alert and oriented x 3. Psychiatric: Normal affect. Nursing notes and vital signs reviewed. Diagnostics Lab Results Labs Ordered and Resulted from Time of ED Arrival to Time of ED Departure ROUTINE UA WITH MICROSCOPIC REFLEX TO CULTURE - Abnormal Result Value Color Urine Yellow Appearance Urine Slightly Cloudy (*) Glucose Urine Negative Bilirubin Urine Negative Ketones Urine Negative Specific [place] Urine 1.017 Blood Urine Negative pH Urine 7.0 Protein Albumin Urine Negative Urobilinogen Urine Normal Nitrite Urine Negative Leukocyte Esterase Urine Negative Bacteria Urine Few (*) Mucus Urine Present (*) RBC Urine 1 WBC Urine 1 Squamous Epithelials Urine 2 (*) HCG QUANTITATIVE - Abnormal hCG Quantitative 59,278 (*) BASIC METABOLIC PANEL - Normal Sodium 136 Potassium 3.9 Chloride 102 Carbon Dioxide (CO2) 25 Anion Gap 9 Urea Nitrogen 7.8 Creatinine 0.58 GFR Estimate >90 Calcium 9.6 Glucose 90 CBC WITH PLATELETS AND DIFFERENTIAL WBC Count 9.5 RBC Count 4.48 Hemoglobin 13.5 Hematocrit 39.6 MCV 88 MCH 30.1 MCHC 34.1 RDW 12.2 Platelet Count 231 % Neutrophils 69 % Lymphocytes 18 % Monocytes 12 % Eosinophils 1 % Basophils 0 % Immature Granulocytes 0 NRBCs per 100 WBC 0 Absolute Neutrophils 6.6 Absolute Lymphocytes 1.7 Absolute Monocytes 1.1 Absolute Eosinophils 0.1 Absolute Basophils 0.0 Absolute Immature Granulocytes 0.0 Absolute NRBCs 0.0 Imaging US OB 1st Trimester W Transvaginal W Doppler Final Result IMPRESSION: 1. Single living intrauterine gestation at 9 weeks and 4 days, EDC 01/28/2024. 2. Small left-sided subchorionic hemorrhage measuring 2 cm. Independent Interpretation None ED Course Medications Administered Medications acetaminophen (TYLENOL) tablet 975 mg (975 mg Oral $Given 06/26/231912) Procedures Procedures Discussion of Management None Social Determinants of Health adding to complexity of care None ED Course ED Course as of 06/26/232046 Sun June 26, 2023 1848 I obtained history and examined the patient as noted above. Medical Decision Making / Diagnosis [facility] Diagnoses: None MIPS None MDM Alisia Velasquez is a 38 year old female who presents to the ED for evaluation of vaginal bleeding in . Patient is A+. See HPI as above for additional details. Vitals and physical exam as above. Differential diagnosis included threatened miscarriage, active miscarriage, subchorionic he morrhageectopic , placenta previa, placental abruption, polyp, adenomyosis, leiomyoma, heterotopic , malignancy, iatrogenic, amongst others. US as above reveals subchorionic hemorrhage as well as single living intrauterine gestation. Hemoglobin is reassuring at 13.5. hCG obtained as above. As patient did describe some bilateral low back pain, did obtain urine. No suggestion for infection. Discussed results with patient. Do feel patient is safe for discharge home. No indicationfor RhoGAM at this time. Advised patient call her DIRECTOR OF MARKET ANALYSIS to discuss visit to the emergency department. I doubt more serious abdominal pathology such as appendicitis appendicitis, cholecystitis, volvulus, volvulus, intra-abdominal abscess, diverticulitis, amongst others. Discussed reasons to return.All questions answered. Patient discharged to home in stable condition. Disposition The patient was discharged. ICD-10 Codes: ICD-10-CM 1. Subchorionic hemorrhage of placenta in first trimester O20.8 Discharge Medications New Prescriptions No medications on file Scribe Disclosure: I, Jeannine Moon, am serving as a scribe at 7:32 PM on 06/26/2023 to document services personallyperformed by Ivan Grace PA-C based on my observations and the provider's statements to me. This record was created at least in part using electronic voice recognition software, so please excuse any typographical errors. Ivan Grace PA-C 06/26/23 [id number] documented in this encounter Plan of Treatment Not on file documented as of this encounter Procedures Procedure Name Priority Date/Time Associated Diagnosis Comments US OB 1ST TRIMESTER W TRANSVAGINAL W DOPPLER STAT 06/26/2023 8:05 PM CDT EXTRA TUBE STAT 06/26/2023 6:27 PM CDT EXTRA BLOOD BANK PURPLE TOP TUBE STAT 06/26/2023 6:27 PM CDT EXTRA BLOOD BANK PURPLE TOP TUBE STAT 06/26/2023 6:27 PM CDT EXTRA TUBE STAT 06/26/2023 6:22 PM CDT EXTRA RED TOP TUBE STAT 06/26/2023 6: 22 PM CDT EXTRA BLUE TOP TUBE STAT 06/26/2023 6 :22 PM CDT CBC WITH PLATELETS AND DIFFERENTIAL STAT 06/26/2023 6:22 PM CDT CBC WITH PLATELETS & DIFFERENTIAL STAT 06/26/2023 6:22 PM CDT HCG QUANTITATIVE STAT 06/26/2023 6:22 PM CDT BASIC METABOLIC PANEL STAT 06/26/2023 6:22 PM CDT ROUTINE UA WITH MICROSCOPIC REFLEX TO CULTURE STAT 06/26/2023 6:16 PM CDT documented in this encounter Results * US OB 1st Trimester W Transvaginal [...] 1ST TRIMESTER W TRANSVAGINAL W DOPPLER LOCATION: [facility] DATE: 06/26/2023 INDICATION: lower abdominal pain, [...] 1ST TRIMESTER W TRANSVAGINAL W DOPPLER LOCATION: [facility] DATE: 06/26/2023 INDICATION: lower abdominal pain, [...] hemorrhage measuring 2 cm. Ivan Grace PA-C [facility] ORDERABLES * Extra Blood Bank Purple Top Tube (06/26/2023 6:27 PM CDT) Hold Specimen [facility] 06/26/2023 7:46 PM CDT [facility] Blood STRUCTURE OF LEFT UPPER LIMB / Unknown Venipuncture / Unknown 06/26/2023 6:27 PM CDT 06/26/2023 6:34 PM CDT Ivan Grace PA-C LAB - BLOOD ORDERABL ES [facility] [address] Lab (1st floor, no room number) [place] [address], [place] * Extra Blood Bank Purple Top Tube (06/26/2023 6:27 PM CDT) Hold Specimen [facility] 06/26/2023 7:46 PM CDT [facility] Blood STRUCTURE OF LEFT UPPER LIMB / Unknown Venipuncture / Unknown 06/26/2023 6:27 PM CDT 06/26/2023 6:35 PM CDT Ivan Grace PA-C LAB - BLOOD ORDERABL ES Performing Organization Address [facility] Co de Phone Number [facility] Lab [address] Lab (1st floor, no room number) [place] [phone] [place] [address] * Extra Red Top Tube (06/26/2023 6:22 PM CDT) Hold Specimen [facility] 06/26/2023 7:46 PM CDT [facility] Blood STRUCTURE OF LEFT UPPER LIMB / Unknown Venipuncture / Unknown 06/26/2023 6:22 PM CDT 06/26/2023 6:35 PM CDT Ivan Grace PA-C LAB - BLOOD ORDERABL ES Performing Organization Address [facility]/ZIP Co de Phone Number [facility] [address] Lab (1st floor, no room number) [place] [phone] [place] [address] * Extra Blue Top Tube (06/26/2023 6:22 PM CDT) Hold Specimen [facility] 06/26/2023 7:46 PM CDT [facility] Blood STRUCTURE OF LEFT UPPER LIMB / Unknown Venipuncture / Unknown 06/26/2023 6:22 PM CDT 06/26/2023 6:34 PM CDT Ivan Grace PA-C LAB - BLOOD ORDERABL ES [facility] Lab [address] Lab (1st floor, no room number) [place] [address], [facility] * CBC with platelets and differential (06/26/2023 6:22 PM CDT) WBC Count 9.5 4.0 - 11.0 10e3/uL 06/26/2023 6:38 PM CDT [facility] RBC Count 4.48 3.80 - 5.20 10e6/uL 06/26/2023 6:38 PM CDT [facility] Hemoglobin 13.5 11.7 - 15.7 g/dL 06/26/2023 6:38 PM CDT [facility] Hematocrit 39.6 35.0 - 47.0 % 06/26/2023 6:38 PM CDT [facility] MCV 88 78 - 100 fL 06/26/2023 6:38 PM CDT [facility] MCH 30.1 26.5 - 33.0 pg 06/26/2023 6:38 PM CDT [facility] MCHC 34.1 31.5 - 36.5 g/dL 06/26/2023 6:38 PM CDT [facility] RDW 12.2 10.0 - 15.0 % 06/26/2023 6:38 PM CDT [facility] Platelet Count 231 150 - 450 10e3/uL 06/26/2023 6:38 PM CDT [facility] % Neutrophils 69 % 06/26/2023 6:38 PM CDT [facility] % Lymphocytes 18 % 06/26/2023 6:38 PM CDT [facility] % Monocytes 12 % 06/26/2023 6:38 PM CDT [facility] % Eosinophils 1 % 06/26/2023 6:38 PM CDT [facility] % Basophils 0 % 06/26/2023 6:38 PM CDT [facility] % Immature Granulocytes 0 % 06/26/2023 6:38 PM CDT [facility] NRBCs per 100 WBC 0 <1 /100 024 6:38 PM CDT [facility] Absolute Neutrophils 6.6 1.6 - 8.3 10e3/uL 06/26/2023 6:38 PM CDT [facility] Absolute Lymphocytes 1.7 0.8 - 5.3 10e3/uL 06/26/2023 6:38 PM CDT [facility] Absolute Monocytes 1.1 0.0 - 1.3 10e3/uL 06/26/2023 6:38 PM CDT [facility] Absolute Eosinophils 0.1 0.0 - 0.7 10e3/uL 06/26/2023 6:38 PM CDT [facility] Absolute Basophils 0.0 0.0 - 0.2 10e3/uL 06/26/2023 6:38 PM CDT [facility] Absolute Immature Granulocytes 0.0 <=0.4 10e3/uL 06/26/2023 6:38 PM CDT [facility] Absolute NRBCs 0.0 10e3/uL 06/26/2023 6:38 PM CDT [facility] Blood STRUCTURE OF LEFT UPPER LIMB / Unknown Venipuncture / Unknown 06/26/2023 6:22 PM CDT 06/26/2023 6:35 PM CDT Ivan Grace PA-C LAB - BLOOD ORDERABL ES Performing Organization Address City/[facility]/ZIP Co de Phone Number LABORATORY [facility] Lab [address] Lab (1st floor, no room number) [place] [address] * (ABNORMAL) hCG Quantitative (blood) (06/26/2023 6:22 PM CDT) [facility] hCG Quantitative 59,278(H) <5 mIU/mL 06/26/19 7:30 PM CDT [facility] Comment: Adult: 0-5 mIU/mL for healthy non- person Neonates: Should be within normal ranges by 2 days after Blood STRUCTURE OF LEFT UPPER LIMB / Unknown Venipuncture / Unknown 06/26/2023 6:22 PM CDT 06/26/2023 6:35 PM CDT Ivan MARTINEZ-C LAB - BLOOD ORDERABL ES LABORATORY [facility] Lab [address] Lab (1st floor, no room number) [place] [address] * Basic metabolic panel (06/26/2023 6:22 PM CDT) Sodium 136 135 - 145 mmol/L 06/26/2023 [...] - 20.0 mg/dL 06/26/2023 6:59 PM CDT LABORATORY Creatinine 0.58 0.51 - 0.95 mg/dL 06/26/2023 6:59 PM CDT [facility] GFR Estimate >90 >60 mL/min/1. 73m2 06/26/2023 6:59 PM CDT LABORATORY Calcium 9.6 8.6 - 10.0 mg/dL 06/26/2023 6:59 PM CDT LABORATORY Glucose 90 70 - 99 mg/dL 06/26/2023 6:59 PM CDT LABORATORY Blood STRUCTURE OF LEFT UPPER LIMB / Unknown Venipuncture / Unknown 06/26/2023 6:22 PM CDT 06/26/2023 6:35 PM CDT Ivan Grace PA-C LAB - BLOOD ORDERABL ES LABORATORY [facility] Lab [address] [facility] Lab (1st floor, no room number) [place] [address], [facility] * (ABNORMAL) UA with Microscopic reflex to Culture (06/26/2023 6:16 PM CDT) Color Urine Yellow Colorless, Straw, Light Yellow, Yellow 06/26/2023 7:37 PM CDT LABORATORY Appearance Urine Slightly Cloudy(A) Clear 06/26/2023 7:37 PM CDT LABORATORY Glucose Urine Negative Negative mg/dL 06/26/2023 7:37 PM CDT [facility] Bilirubin Urine Negative Negative 7:37 PM CDT LABORATORY Ketones Urine Negative Negative mg/dL 06/26/2023 7:37 PM CDT LABORATORY Specific [place] Urine 1.017 1.003 - 1.035 06/26/2023 7:37 PM CDT [facility] Blood Urine Negative Negative 06/26/2023 7:37 PM CDT LABORATORY pH Urine 7.0 5.0 - 7.0 06/26/2023 7:37 PM CDT LABORATORY Protein Albumin Urine Negative Negative mg/dL 06/26/2023 7:37 PM CDT LABORATORY Urobilinogen Urine Normal Normal, 2.0 mg/dL 06/26/2023 7:37 PM CDT LABORATORY Nitrite Urine Negative Negative 06/26/2023 7:37 PM CDT LABORATORY Leukocyte Esterase Urine Negative Negative 06/26/2023 7:37 PM CDT LABORATORY Bacteria Urine Few(A) None Seen /HPF 06/26/2023 7:37 PM CDT LABORATORY Mucus Urine Present(A) None Seen /LPF 06/26/2023 7:37 PM CDT LABORATORY RBC Urine 1 <=2 /HPF 06/26/2023 7:37 PM CDT LABORATORY WBC Urine 1 <=5 /HPF 06/26/2023 7:37 PM CDT LABORATORY Squamous Epithelials Urine 2(H) <=1 /HPF 06/26/2023 7:37 PM CDT LABORATORY Urine MID-STREAM URINE SPECIMEN / Unknown Non-blood Collection / Unknown 06/26/2023 6:16 PM CDT 06/26/2023 7:21 PM CDT Narrative LABORATORY - 06/26/2023 7:37 PM CDT Urine Culture not indicated Ivan Grace PA-C LAB - URINE ORDERABL ES LABORATORY [facility] [address] [facility] ([facility], no room number) [place] [address] documented in this encounter Visit Diagnoses Diagnosis Subchorionic hemorrhage of placenta in first trimester documented in this encounter Administered Medications Inactive Administered Medications - up to 3 most recent administrations Medication Order MAR Action Action Date Dose Rate Site acetaminophen (TYLENOL) tablet 975 mg 975 mg, Oral, ONCE, On 06/26/23 at 1855, For 1 dose, Maximum acetaminophen dose from all sources = 75 mg/kg/day not to exceed 4 grams/day. $Given 06/26/2023 7:13 PM CDT 975 mg documented in this encounter Active and Recently Administered Medications Times are shown in CDT. Scheduled Medication Order 06/24/2023 06/25/2023 06/26/2023 acetaminophen (TYLENOL) tablet 975 mg (COMPLETED) 975 mg, Oral, ONCE, On 06/26/23 at 1855, For 1 dose, Maximum acetaminophen dose from all sources = 75 mg/kg/day not to exceed 4 grams/day. 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
--- OUTSIDE RECORDS SUMMARY | 2023-09-08 23:09 | XMS_ITS | Encounter Summary ---
Author Organization [place] Address [address] [facility] 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
--- OUTSIDE RECORDS SUMMARY | 2023-09-08 23:09 | XMS_ITS | Encounter Summary ---
Author Organization [place] Address [address] [facility] [place] [address] Care Team Providers Care Baker Head Name Role Phone [facility], [facility] Primary Care Pro vider Mary Kate Herrera PA-C Unavailable Randal Joe MD Unavailable [phone] Encounter Details Date Type Department Care Team (Latest Contact Info) Description 06/11/2023 Travel Social History Tobacco Use Types Packs/Day [...] Total Score: 6 02/07/20 21 8:10 AM EXECUTIVE RECRUITER documented as of this encounter Care Teams Baker Head Relationship Specialty Start Date End Date [facility], [facility] [address] [place], [place] [phone] PCP - General 03/02/20 Mary Kate Herrera PA-C [address] [place] [address] Assigned PCP 02/15/21 Randal Joe MD [facility] [address] [place] [address] 07/20/22 documented as of this encounter
--- OUTSIDE RECORDS SUMMARY | 2023-09-08 23:09 | XMS_ITS | Encounter Summary ---
Author Organization [place] Address [address] [facility] [place] [address] Care Team Providers Care Telephone Order Clerk Room Service Name Role Phone [facility] Primary Care Pro vider Mary Kate Herrera PA-C Unavailable Randal Joe MD Unavailable [phone] Reason for Visit * Reason Comments Abdominal Pain Constipation Encounter Details Date Type Department Care Team (Late st Contact Info) Description 07/16/2023 11:43 PM CDT - 07/17/2023 1:40 AM T [facility] Emergency Dept [address] [place] [address] Louie Allen MD [facility] [address] [place] [address] Constipation, unspecified constipation type Discharge Disposition: Home or Self Care Social [...] Sign Reading Time Taken Comments Blood Pressure 107/72 07/17/2023 1:38 AM CDT Pulse 77 07/17/2023 1:38 AM CDT Temperature 36.4 ??C (97.5 ??F) 07/17/2023 1:38 AM CD T Respiratory Rate 18 07/17/2023 1:38 AM CDT Oxygen Saturation 99% 07/17/2023 1:38 AM CDT Inhaled Oxygen Concentration - - Weight 86.5 kg (190 lb 11.2 oz) 024 11:30 PM CDT Height 165.1 cm (5' 5) 07/16/2023 11:3 0 PM CDT Body Mass Index 31.73 07/16/2023 11:30 PM CDT documented in this encounter Discharge Instructions * Discharge Instructions* Louie Allen MD - 07/17/2023 1:15 AM CDT It was a pleasure taking care of you today. I hope you feel much better soon. Take miralax daily as indicated on the bottle and drink extra water to reduce risk of constipation. Please follow-up with your OBGYN in 2-3 days. Return immediately for pain, bleeding, or any other concerns. * Attachments The following attachments cannot be sent through Care Everywhere. * Constipation ([place]) documented in this encounter Medications at Time [...] as of this encounter ED Notes * Meggan Plummer RN - 07/17/2023 1:39 AM CDT Pt given AVS and instructions by selling underwriter- pt agreeable to all. Pt has no concerns, feels fine. No pain. Amb with good gait to exit where is waiting for her. * Vangie Balderrama RN - 07/16/2023 11:28 PM CDT Pt 11 weeks . Pt reports constipation for 24 hrs. Pt reports when she tries to poop she hassevere pain in her rectum and RLQ. Pt nauseated. Pt denies vaginal bleeding. * Louie Allen MD - 07/16/2023 11:27 PM CDT History Chief Complaint: Constipation HPI Alisia Velasquez is a 38 year old female currently 11 weeks who presents with constipation. She endorses soft stools prior to being , then having more formed stools on an approximately daily basis since. Yesterday, she barely had a stool, but today she is at the urgency defecate, felt some discomfort in her rectal area with attempted defecate, but has been unable to defecate. The patient notes fullness and bloating to abdomen but no olive pain, nausea, vomiting, and she denies vaginal discharge or bleeding. Independent Historian: None Review of External Notes: Reviewed 07/07/2023 office visit ROS: Review of Systems Allergies: Amoxicillin Iodinated Contrast Media Medications: acetaminophen (TYLENOL) 325 MG tablet hydrOXYzine (ATARAX) 25 MG tablet ibuprofen (ADVIL/MOTRIN) 200 MG tablet Vit-Fe Fumarate-FA ( PLUS) 27-1 MG TABS VITAMIN D3 50 MCG (1999) tablet Past History: Past Medical History: Diagnosis Date Arthritis Chronic depressive personality disorder Depressive disorder Other anxiety states Physical Exam Patient Vitals for the past 24 hrs: Vitals: 07/16/23 2330 07/17/23 0138 BP: 121/73 107/72 Pulse: 85 77 Resp: 18 18 Temp: 98 ??F (36.7 ??C) 97.5 ??F (36.4 ??C) TempSrc: Temporal Oral SpO2: 100% 99% Weight: 86.5 kg (190 lb 11.2 oz) Height: 1.651 m (5' 5) Physical Exam Constitutional: Alert, attentive HENT: Nose: Nose normal. Eyes: EOM are normal. CV: regular rate and rhythm; no murmurs, rubs or gallups Chest: Effort normal and breath sounds normal. GI: There is no tenderness. No distension. Normal bowel sounds MSK: Normal range of motion. Neurological: Alert, attentive Skin: Skin is warm and dry. Emergency Department Course Results for orders placed or performed during the hospital encounter of 07/16/23 Comprehensive metabolic panel Status: Abnormal Result Value Ref Range Sodium 134 (L) 135 - 145 mmol/L Potassium 3.8 3.4 - 5.3 mmol/L Carbon Dioxide (CO2) 21 (L) 22 - 29 mmol/L Anion Gap 14 7 - 15 mmol/L Urea Nitrogen 9.5 6.0 - 20.0 mg/dL Creatinine 0.60 0.51 - 0.95 mg/dL GFR Estimate >90 >60 mL/min/1.73m2 Calcium 9.4 8.6 - 10.0 mg/dL Chloride 99 98 - 107 mmol/L Glucose 116 (H) 70 - 99 mg/dL Alkaline Phosphatase 47 40 - 150 U/L AST 10 0 - 45 U/L ALT 7 0 - 50 U/L Protein Total 7.0 6.4 - 8.3 g/dL Albumin 3.9 3.5 - 5.2 g/dL Bilirubin Total 0.2 <=1.2 mg/dL Lipase Status: Normal Result Value Ref Range Lipase 43 13 - 60 U/L Mcintosh Draw Status: None Narrative The following orders were created for panel order Mcintosh Draw. Procedure Abnormality Status --------- ------ Extra Blue Top Tube[[id number]] Final result Extra Red Top Tube[[id number]] Final result Please view results for these tests on the individual orders. UA with Microscopic reflex to Culture Status: Abnormal Specimen: Urine, Midstream Result Value Ref Range Color Urine Straw Colorless, Straw, Light Yellow, Yellow Appearance Urine Clear Clear Glucose Urine Negative Negative mg/dL Bilirubin Urine Negative Negative Ketones Urine Negative Negative mg/dL Specific [place] Urine 1.009 1.003 - 1.035 Blood Urine Negative Negative pH Urine 5.5 5.0 - 7.0 Protein Albumin Urine Negative Negative mg/dL Urobilinogen Urine Normal Normal, 2.0 mg/dL Nitrite Urine Negative Negative Leukocyte Esterase Urine Negative Negative Bacteria Urine Few (A) None Seen /HPF Mucus Urine Present (A) None Seen /LPF RBC Urine <1 <=2 /HPF WBC Urine 1 <=5 /HPF Squamous Epithelials Urine 2 (H) <=1 /HPF Narrative Urine Culture not indicated CBC with platelets and differential Status: Abnormal Result Value Ref Range WBC Count 11.8 (H) 4.0 - 11.0 10e3/uL RBC Count 4.21 3.80 - 5.20 10e6/uL Hemoglobin 12.7 11.7 - 15.7 g/dL Hematocrit 37.2 35.0 - 47.0 % MCV 88 78 - 100 fL MCH 30.2 26.5 - 33.0 pg MCHC 34.1 31.5 - 36.5 g/dL RDW 12.2 10.0 - 15.0 % Platelet Count 232 150 - 450 10e3/uL % Neutrophils 69 % % Lymphocytes 21 % % Monocytes 9 % % Eosinophils 1 % % Basophils 0 % % Immature Granulocytes 0 % NRBCs per 100 WBC 0 <1 /100 Absolute Neutrophils 8.2 1.6 - 8.3 10e3/uL Absolute Lymphocytes 2.4 0.8 - 5.3 10e3/uL Absolute Monocytes 1.0 0.0 - 1.3 10e3/uL Absolute Eosinophils 0.1 0.0 - 0.7 10e3/uL Absolute Basophils 0.1 0.0 - 0.2 10e3/uL Absolute Immature Granulocytes 0.1 <=0.4 10e3/uL Absolute NRBCs 0.0 10e3/uL Extra Blue Top Tube Status: None Result Value Ref Range Hold Specimen JIC Extra Red Top Tube Status: None Result Value Ref Range Hold Specimen JIC CBC + differential Status: Abnormal Narrative The following orders were created for panel order CBC + differential. Procedure Abnormality Status --------- ------ CBC with platelets and d...[[id number]] Abnormal Final result Please view results for these tests on the individual orders. Emergency Department Course & Assessments: Interventions: Medications Enema Compound (docusate/mineral oil/NaPhos) NO MAG CIT PREMIX (226 mLs Rectal $Given 07/17/23 0029) Disposition: The patient was discharged to home. Impression & Plan Medical Decision Making: This a pleasant 38-year-old female currently 11 weeks presents for evaluation of symptoms consistent with constipation. She has no abdominal pain or tenderness. Symptoms resolved after largebowel movement facilitated by enema. Plan MiraLAX daily for 1 week and increase water intake. Plan primary care versus COOLER SERVICER follow-up in 3 to 5 days for recheck. Return precautions for pain, fever,vomiting, or any other concerns. Diagnosis: Visit Diagnosis, Associated Orders, and Comments ICD-10-CM 1. Constipation, unspecified constipation type K59.00 Louie Allen MD 07/17/23 0258 documented in this encounter Plan of Treatment Not on file documented as of this encounter Procedures Procedure Name Priority Date/Time Associated Diagnosis Comments ROUTINE UA WITH MICROSCOPIC REFLEX TO CULTURE STAT 07/17/2023 12:29 AM CDT EXTRA TUBE STAT 07/16/2023 11:34 PM CDT EXTRA RED TOP TUBE STAT 07/16/2023 11 :34 PM CDT EXTRA BLUE TOP TUBE STAT 07/16/2023 1 1:34 PM CDT CBC WITH PLATELETS AND DIFFERENTIAL STAT 07/16/2023 11:34 PM CDT CBC WITH PLATELETS & DIFFERENTIAL STAT 07/16/2023 11:34 PM CDT LIPASE STAT 07/16/2023 11:34 PM CDT COMPREHENSIVE METABOLIC PANEL STAT 07/16/2023 11:34 PM CDT documented in this encounter Results * (ABNORMAL) UA with Microscopic reflex to Culture (07/17/2023 12:29 AM CDT) Color Urine Straw Colorless, Straw, Light Yellow, Yellow 07/17/2023 12:51 AM CDT [facility] Appearance Urine Clear Clear 07/17/19 12:51 AM CDT [facility] Glucose Urine Negative Negative mg/dL 07/17/2023 12:51 AM CDT [facility] Bilirubin Urine Negative Negative 12:51 AM CDT [facility] Ketones Urine Negative Negative mg/dL 07/17/2023 12:51 AM CDT LABORATORY Specific [place] Urine 1.009 1.003 - 1.035 07/17/2023 12:51 AM CDT [facility] Blood Urine Negative Negative 07/17/2023 12:51 AM CDT LABORATORY pH Urine 5.5 5.0 - 7.0 07/17/2023 12:51 AM CDT [facility] Protein Albumin Urine Negative Negative mg/dL 07/17/2023 12:51 AM CDT LABORATORY Urobilinogen Urine Normal Normal, 2.0 mg/dL 07/17/2023 12:51 AM CDT [facility] Nitrite Urine Negative Negative 07/17/2023 12:51 AM CDT [facility] Leukocyte Esterase Urine Negative Negative 07/17/2023 12:51 AM CDT LABORATORY Bacteria Urine Few(A) None Seen /HPF 07/17/2023 12:51 AM CDT LABORATORY Mucus Urine Present(A) None Seen /LPF 07/17/2023 12:51 AM CDT [facility] RBC Urine <1 <=2 /HPF 07/17/2023 12:51 AM CDT [facility] WBC Urine 1 <=5 /HPF 07/17/2023 12:51 AM CDT [facility] Squamous Epithelials Urine 2(H) <=1 /HPF 07/17/2023 12:51 AM CDT [facility] Urine MID-STREAM URINE SPECIMEN / Unknown Non-blood Collection / Unknown 07/17/2023 12:29 AM CDT 07/17/2023 12:44 AM CDT Narrative LABORATORY - 07/17/2023 12:51 AM CDT Urine Culture not indicated Louie Allen MD LAB - URINE ORDER JOHN [facility] [address] Lab (1st floor, no room number) [place] [id number] [place] [address] * Extra Red Top Tube (07/16/2023 11:34 PM CDT) Hold Specimen [facility] 07/17/2023 12:46 AM CDT LABORATORY Blood STRUCTURE OF LEFT UPPER LIMB / Unknown Venipuncture / Unknown 07/16/2023 11:34 PM CDT 07/16/2023 11:41 PM CDT Louie Allen MD LAB - BLOOD ORDER JOHN Performing Organization Address City/[facility]/ZIP Co de Phone Number [facility] [address] Lab (1st floor, no room number) [place] [id number] [place] [address] * Extra Blue Top Tube (07/16/2023 11:34 PM CDT) Hold Specimen [facility] 07/17/2023 12:46 AM CDT LABORATORY Blood STRUCTURE OF LEFT UPPER LIMB / Unknown Venipuncture / Unknown 07/16/2023 11:34 PM CDT 07/16/2023 11:41 PM CDT Louie Allen MD LAB - BLOOD ORDER JOHN [facility] [address] Lab (1st floor, no room number) [place] [id number] [place] [address] * (ABNORMAL) CBC with platelets and differential (07/16/2023 11:34 PM CDT) WBC Count 11.8(H) 4.0 - 11.0 10e3/uL 07/16/2023 11:44 PM CDT [facility] RBC Count 4.21 3.80 - 5.20 10e6/uL 07/16/2023 11:44 PM CDT [facility] Hemoglobin 12.7 11.7 - 15.7 g/dL 07/16/2023 11:44 PM CDT [facility] Hematocrit 37.2 35.0 - 47.0 % 07/16/2023 11:44 PM CDT [facility] MCV 88 78 - 100 fL 07/16/2023 11:44 PM CDT [facility] MCH 30.2 26.5 - 33.0 pg 07/16/2023 11:44 PM CDT [facility] MCHC 34.1 31.5 - 36.5 g/dL 07/16/2023 11:44 PM CDT [facility] RDW 12.2 10.0 - 15.0 % 07/16/2023 11:44 PM CDT [facility] Platelet Count 232 150 - 450 10e3/uL 07/16/2023 11:44 PM CDT [facility] % Neutrophils 69 % 07/16/2023 11:44 PM CDT [facility] % Lymphocytes 21 % 07/16/2023 11:44 PM CDT [facility] % Monocytes 9 % 07/16/2023 11:44 PM CDT [facility] % Eosinophils 1 % 07/16/2023 11:44 PM CDT [facility] % Basophils 0 % 07/16/2023 11:44 PM CDT [facility] % Immature Granulocytes 0 % 07/16/2023 11:44 PM CDT [facility] NRBCs per 100 WBC 0 <1 /100 024 11:44 PM CDT [facility] Absolute Neutrophils 8.2 1.6 - 8.3 10e3/uL 07/16/2023 11:44 PM CDT [facility] Absolute Lymphocytes 2.4 0.8 - 5.3 10e3/uL 07/16/2023 11:44 PM CDT [facility] Absolute Monocytes 1.0 0.0 - 1.3 10e3/uL 07/16/2023 11:44 PM CDT [facility] Absolute Eosinophils 0.1 0.0 - 0.7 10e3/uL 07/16/2023 11:44 PM CDT [facility] Absolute Basophils 0.1 0.0 - 0.2 10e3/uL 07/16/2023 11:44 PM CDT [facility] Absolute Immature Granulocytes 0.1 <=0.4 10e3/uL 07/16/2023 11:44 PM CDT [facility] Absolute NRBCs 0.0 10e3/uL 07/16/2023 11:44 PM CDT [facility] Blood STRUCTURE OF LEFT UPPER LIMB / Unknown Venipuncture / Unknown 07/16/2023 11:34 PM CDT 07/16/2023 11:41 PM CDT Louie Allen MD LAB - BLOOD ORDER JHON [facility] [address] Lab (1st floor, no room number) [address] * Lipase (07/16/2023 11:34 PM CDT) Lipase 43 13 - 60 U/L 07/17/2023 12:01 AM CDT [facility] Blood STRUCTURE OF LEFT UPPER LIMB / Unknown Venipuncture / Unknown 07/16/2023 11:34 PM CDT 07/16/2023 11:41 PM CDT Louie Allen MD LAB - BLOOD ORDER JOHN [facility] [address] Lab (1st floor, no room number) [address] * (ABNORMAL) Comprehensive metabolic panel (07/16/2023 11:34 PM CDT) Sodium 134(L) 135 - 145 mmol/L 07/17/2023 12:01 AM CDT [facility] Comment:Reference intervals for this test were updated on 11/02/2022 to more accurately reflect our healthy population. There may be differences in the flagging of prior results with similar values performed with this method. Interpretation of those prior results can be made in the context of the updated reference intervals. Potassium 3.8 3.4 - 5.3 mmol/L 07/17/2023 12: AM CDT LABORATORY Carbon Dioxide (CO2) 21(L) 22 - 29 mmol/L 07/17/2023: AM CDT LABORATORY Anion Gap 14 7 - 15 mmol/L 07/17/2023 12 AM CDT LABORATORY Urea Nitrogen 9.5 6.0 - 20.0 mg/dL 07/17/2023: AM CDT LABORATORY Creatinine 0.60 0.51 - 0.95 mg/dL 07/17/2023 AM CDT LABORATORY GFR Estimate >90 >60 mL/min/1. 73m2 07/17/2023 12: AM CDT LABORATORY Calcium 9.4 8.6 - 10.0 mg/dL 07/17/2023 AM CDT LABORATORY Chloride 99 98 - 107 mmol/L 07/17/2023 AM T LABORATORY Glucose 116(H) 70 - 99 mg/dL 07/17/2023 AM CDT LABORATORY Alkaline Phosphatase 47 40 - 150 U/L 07/17/2023 AM CDT LABORATORY AST 10 0 - 45 U/L 07/17/2023 12:01 AM CDT LABORATORY Comment:Reference intervals for this test were updated on 07/19/2022 to more accurately reflect our healthy population. There may be differences in the flagging of prior results with similar values performed with this method. Interpretation of those prior results can be made in the context of the updated reference intervals. ALT 7 0 - 50 U/L 07/17/2023 12 AM CDT LABORATORY Comment:Reference intervals for this test were updated on 07/19/2022 to more accurately reflect our healthy population. There may be differences in the flagging of prior results with similar values performed with this method. Interpretation of those prior results can be made in the context of the updated reference intervals. Protein Total 7.0 6.4 - 8.3 g/dL 07/17/2023 AM CDT LABORATORY Albumin 3.9 3.5 - 5.2 g/dL 07/17/2023 AM CDT LABORATORY Bilirubin Total 0.2 <=1.2 mg/dL 07/17/2023: AM T LABORATORY Blood STRUCTURE OF LEFT UPPER LIMB / Unknown Venipuncture / Unknown 07/16/2023 11:34 PM CDT 07/16/2023 11:41 PM CDT Louie Allen MD LAB - BLOOD ORDER JOHN LABORATORY [facility] Lab [address] [facility] Lab (1st floor, no room number) [place] [address] documented in this encounter Visit Diagnoses Diagnosis Constipation, unspecified constipation type documented in this encounter Administered Medications Inactive Administered Medications - up to 3 most recent administrations Medication Order MAR Action Action Date Dose Rate Site Enema Compound (docusate/mineral oil/NaPhos) NO MAG CIT PREMIX 226 mL, Rectal, ONCE, On 07/17/23 at 0020, For 1 dose, mag citrate not included due to senior it auditor recall. $Given 07/17/2023 12:29 AM CDT 226 mLs documented in this encounter Active and Recently Administered Medications Times are shown in CDT. Scheduled Medication Order 07/15/2023 07/16/2023 07/17/2023 Enema Compound (docusate/mineral oil/NaPhos) NO MAG CIT PREMIX (COMPLETED) 226 mL, Rectal, ONCE, On 07/17/23 at 0020, For 1 dose, mag citrate not included due to senior it auditor recall. 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 [address] [place] [address] PCP - General 03/02/20 Mary Kate Herrera PA-C [address] [place] [address] Assigned PCP 02/15/21 Randal Joe MD [facility] [address] [place] [address] 07/20/22 documented as of this encounter
--- OUTSIDE RECORDS SUMMARY | 2023-09-08 23:10 | XMS_ITS | Encounter Summary ---
Author Organization [place] Address [address] [place] [address] Care Team Providers Care Clip Loading Machine Adjuster Name Role Phone Tracy Dorado MD Primary Care Provider + Tracy Dorado MD Unavailable + Tracy Dorado MD Unavailable + Jasvir Montoya MD Unavailable + Kathy Ross PA-C Unavailable [phone] [facility] Primary Ca re Provider + Jasvir Montoya MD Unavailable + Kathy Ross PA-C Unavailable [phone] Tracy Dorado MD Unavailable + [facility] Primary Care Pro vider + Jasvir Montoya MD Unavailable + Mary Kate Herrera PA-C Unavailable Randal Joe MD Unavailable [phone] Mary Kate Herrera PA-C Unavailable Encounter Details Date Type Department Care Team (Late st Contact Info) Description 02/24/2015 [facility] Medical Advice [facility], [address] [place] [id number] Alison Messer APRN LBD TEACHER [address] [place] [address] [address] [place] [address] Social History Tobacco Use Types Packs/Day Years Used Date Smoking Tobacco: Former Smokeless Tobacco: Never Quit: 07/07/2012 Comments:used to smoke 1 PPD x 11 yr Alcohol Use Standard Drinks/Week Comments Yes 0 (1 standard drink = 0.6 oz pur e alcohol) occ Sex and Gender Information Value Date Recorded [...] Out COVID-19 01/19/2021 01/19/2021 01/19/2021 3:03 PM 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 Rule Out C-difficile 05/09/2021 05/10/2021 022 1:18 PM CDT C-difficile 05/10/2021 05/10/2021 06/09/2021 11:4 1 PM CDT Assessment Noted Time PHQ-9 Depression Total Score: 2 11/20/19 15 7:27 AM CDT documented as of this encounter Care Teams Clip Loading Machine Adjuster Relationship Specialty Start Date End Date Tracy Dorado MD PCP - General Family Practice 11/02/12 01/07/19 [place] [address] [place] [place] [address] PCP - Assigned PCP 02/13/17 04/11/18 [facility] [address] [place] [address] PCP - General 01/08/19 03/01/20 [facility] [address] [place] [address] PCP - General 03/02/20 [place] [address] [place] [address] Assigned PCP 02/13/17 08/19/18 [place] [address] [place] [address] Assigned PCP 08/20/18 10/21/18 Kathy Ross PA-C [address] [place] [address] Assigned PCP 10/22/18 08/18/19 [place] [address] [place] [address] Assigned PCP 08/19/19 08/25/19 Kathy Ross PA-C [address] [place] [address] Assigned PCP 08/26/19 10/20/19 [place] [address] [place] [address] Assigned PCP 10/21/19 07/02/20 [place] [address] [place] [address] Assigned PCP 07/03/20 02/14/21 AasMary Kate Sheth PA-C [address] [place] [address] Assigned PCP 02/15/21 Randal Joe MD [facility] [address] [place] [address] 07/20/22 Mary Kate Herrera PA-C [address] [place] [address] Assigned Pain Medication Provider 01/01/23 03/02/23 documented as of this encounter
--- OUTSIDE RECORDS SUMMARY | 2023-09-08 23:10 | XMS_ITS | Encounter Summary ---
Author Organization [place] Address [address] [facility] [place] [address] Care Team Providers Care Office Machine Punch Operator Name Role Phone Tracy Dorado MD Primary Care Provider Jasvir Montoya MD Unavailable + [phone] Kathy Ross PA-C Unavailable [phone] [facility] Primary Ca re Provider Jasvir Montoya MD Unavailable + [phone] Kathy Ross PA-C Unavailable [phone] Tracy Dorado MD Unavailable +[phone] [facility] Primary Care Pro vider Jasvir Montoya MD Unavailable + [phone] Mary Kate Herrera PA-C Unavailable Randal Joe MD Unavailable [phone] Mary Kate Herrera PA-C Unavailable Encounter Details Date Type Department Care Team (Late st Contact Info) Description 10/17/2018 [facility] Medical Advice [address], [address] [place] [address] Fatoumata Parsons Social History Tobacco Use Types Packs/Day Years Used Date Smoking Tobacco: Former Cigarettes 1 13 0 07/08/1999 - 07/07/2012 Smokeless Tobacco: Never Comments:used to smoke 1 PPD x 11 yr Alcohol Use Standard Drinks/Week Comments Yes 0 (1 standard drink = 0.6 oz pur e alcohol) occ PHQ-2 Answer Date Recorded PHQ-2 Score 0 02/14/2018 Sex and Gender Information Value Date Recorded [...] Out COVID-19 01/19/2021 01/19/2021 01/19/2021 3:03 PM 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 Rule Out C-difficile 05/09/2021 05/10/2021 022 1:18 PM CDT C-difficile 05/10/2021 05/10/2021 06/09/2021 11:4 1 PM CDT Assessment Noted Time PHQ-9 Depression Total Score: 2 08/20/19 19 10:23 AM CDT documented as of this encounter Care Teams Office Machine Punch Operator Relationship Specialty Start Date End Date Tracy Dorado MD PCP - General Family Practice 11/02/12 01/07/19 [facility] [address] [place], [place] [id number] PCP - General 01/08/19 03/01/20 [facility] [id number] [place] [address] PCP - General 03/02/20 [place] [address] [facility] [place] [address] Assigned PCP 08/20/18 10/21/18 Kathy Ross PA-C [address] [place] [address] Assigned PCP 10/22/18 08/18/19 [place] [address] [place] [address] Assigned PCP 08/19/19 08/25/19 Kathy Ross PA-C [address] [place] [address] Assigned PCP 08/26/19 10/20/19 [place] [address] [place] [address] Assigned PCP 10/21/19 07/02/20 [place] [address] [place] [address] Assigned PCP 07/03/20 02/14/21 Mary Kate Herrera PA-C [address] [place] [address] Assigned PCP 02/15/21 Randal Joe MD [facility] [address] [place] [address] 07/20/22 Mary Kate Herrera PA-C [address] [place] [address] Assigned Pain Medication Provider 01/01/23 03/02/23 documented as of this encounter
--- OUTSIDE RECORDS SUMMARY | 2023-09-08 23:10 | XMS_ITS | Encounter Summary ---
Author Organization [place] Address [address] [facility] [place] [address] Care Team Providers Care Issuing Operator Name Role Phone Tracy Dorado MD Primary Care Provider + Tracy Dorado MD Unavailable + Jasvir Montoya MD Unavailable + Kathy Ross PA-C Unavailable +[phone] [facility] Primary Ca re Provider + Jasvir Montoya MD Unavailable + Kathy Ross PA-C Unavailable +[phone] Tracy Dorado MD Unavailable + [facility] Primary Care Pro vider + Jasvir Montoya MD Unavailable + Mary Kate Herrera PA-C Unavailable Randal Joe MD Unavailable +[phone] Mary Kate Herrera PA-C Unavailable Encounter Details Date Type Department Care Team (Late st Contact Info) Description 05/25/2018 [facility] [id number] [place] [phone] Anisa Krueger Halie, DO [address] [facility] [address] [place] [address] Encounter for initial prescription of contraceptive pills (Primary Dx); Dysmenorrhea Social History Tobacco Use Types Packs/Day Years [...] encounter Miscellaneous Notes * Telephone Encounter - Shayla Snyder RN - 05/25/2018 3:06 PM CDT Please see my chart message. Shayla Snyder RN documented in this encounter Plan of Treatment Not on file documented as of this encounter Visit Diagnoses Diagnosis Encounter for initial prescription of contraceptive pills- Primary General counseling for prescription of oral contraceptives Dysmenorrhea documented in this encounter Additional Health Concerns Infection Onset Date Last Indicated Resolved Time Rule Out COVID-19 01/19/2021 01/19/2021 01/19/2021 3:[address] SQL DEVELOPER Rule Out C-difficile 05/09/2021 05/10/2021 022 1:18 PM CDT C-difficile 05/10/2021 05/10/2021 06/09/2021 11:4 1 PM CDT Assessment Noted Time PHQ-9 Depression Total Score: 3 06/19/19 18 2:19 PM CDT documented as of this encounter Care Teams Issuing Operator Relationship Specialty Start Date End Date Tracy Dorado MD PCP - General Family Practice 11/02/12 01/07/19 [facility] [address] [place] [address] PCP - General 01/08/19 03/01/[address] [address] PCP - General 03/02/20 [place] [address] [place] [address] Assigned PCP 02/13/17 08/19/18 [place] [address] [place] [address] Assigned PCP 08/20/18 10/21/18 Kathy Ross PA-C [address] [address] Assigned PCP 10/22/18 08/18/19 [place] [address] [place] [address] Assigned PCP 08/19/19 08/25/19 Kathy Ross PA-C [address] [address] Assigned PCP 08/26/19 10/20/19 [place] [address] [place] [address] Assigned PCP 10/21/19 07/02/20 [place] [address] [place] [address] Assigned PCP 07/03/20 02/14/21 Mary Kate Herrera PA-C [address] [place] [address] Assigned PCP 02/15/21 Randal Joe MD [facility] [address] [place] [address] 07/20/22 Mary Kate Herrera PA-C [address] [place] [address] Assigned Pain Medication Provider 01/01/23 03/02/23 documented as of this encounter
--- OUTSIDE RECORDS SUMMARY | 2023-09-08 23:10 | XMS_ITS | Encounter Summary ---
Author Organization [place] Address [address] [facility] [place] [address] Care Team Providers Care Drag Down Name Role Phone Kathy Ross PA-C Unavailable [phone] [facility] Primary Ca re Provider Jasvir Montoya MD Unavailable Kathy Ross PA-C Unavailable [phone] Tracy Dorado MD Unavailable [phone] [facility] Primary Care Pro vider Jasvir Montoya MD Unavailable [phone] Mary Kate Herrera PA-C Unavailable Randal Joe MD Unavailable Mary Kate Herrera PA-C Unavailable Reason for Visit * Reason Comments Medication Refill Encounter Details Date Type Department Care Team (Late st Contact Info) Description 07/22/2019 Refill [facility] [id number] [place] [phone] Kathy Ross PA-C [address] [place] [address] Medication Refill Social History Tobacco Use Types Packs/Day Years [...] encounter Miscellaneous Notes * Telephone Encounter - Nu Teixeira RN - 07/23/2019 12:16 PM CDT Medication is being filled for 1 time refill only due to: Patient needs to be seen because will be due for an appt October 2018. - this is for francisca documented in this encounter Plan of Treatment Not on file documented as of this encounter Visit Diagnoses Diagnosis Dysmenorrhea Encounter for initial prescription of contraceptive pills General counseling for prescription of oral contraceptives documented in this encounter Additional Health Concerns Infection Onset Date Last Indicated Resolved Time Rule Out COVID-19 01/19/2021 01/19/2021 01/19/2021 3:03 PM WINCH DERRICK OPERATOR Rule Out C-difficile 05/09/2021 05/10/2021 022 1:18 PM CDT C-difficile 05/10/2021 05/10/2021 06/09/2021 11:4 1 PM CDT Assessment Noted Time PHQ-9 Depression Total Score: 2 08/20/19 19 10:23 AM CDT documented as of this encounter Care Teams Drag Down Relationship Specialty Start Date End Date Clinic - [facility] [address] [address] PCP - General 01/08/19 03/01/20 [facility] [place] [address] [place] [address] PCP - General 03/02/20 Kathy Ross PA-C 480 [facility] [address] [facility] [place] [address] Assigned PCP 10/22/18 08/18/19 [place] [address] [place] [address] Assigned PCP 08/19/19 08/25/19 Kathy Ross PA-C [address] [facility] [place] [address] Assigned PCP 08/26/19 10/20/19 [place] [address] [address] [facility] [address] Assigned PCP 10/21/19 07/02/20 [place] [address] [place] [address] Assigned PCP 07/03/20 02/14/21 Mary Kate Herrera PA-C [address] [place] [address] Assigned PCP 02/15/21 Randal Joe MD [facility] [address] [place] [address] 07/20/22 Mary Kate Herrera PA-C [address] [address] [place] [address] Assigned Pain Medication Provider 01/01/23 03/02/23 documented as of this encounter
--- OUTSIDE RECORDS SUMMARY | 2023-09-08 23:10 | XMS_ITS | Encounter Summary ---
Author Organization [place] Address [address] [facility] [place] [address] Care Team Providers Care Chemical Operations Specialist Name Role Phone Tracy Dorado MD Primary Care Provider + Tracy Dorado MD Unavailable + Tracy Dorado MD Unavailable + Jasvir Montoya MD Unavailable + Kathy Ross PA-C Unavailable +[phone] [facility] Primary Ca re Provider + Jasvir Montoya MD Unavailable + Kathy Ross PA-C Unavailable [phone] Tracy Dorado MD Unavailable +[phone] [facility] Primary Care Pro vider + Jasvir Montoya MD Unavailable + [phone] Mary Kate Herrera PA-C Unavailable Randal Joe MD Unavailable +[phone] Mary Kate Herrera PA-C Unavailable Reason for Visit * Reason Onset Date Comments Refill Request 02/19/2015 Trazodone 50 mg tab, Fluoxetine Hcl 20 MG Capsule Encounter Details Date Type Department Care Team (Late st Contact Info) Description 02/19/[address], [address] [place] [address] [place] [address] [place] [address] Refill Request (Trazodone 50 mg tab, Fluoxetine Hcl 20 MG Capsule) Social History Tobacco Use Types Packs/Day Years [...] encounter Miscellaneous Notes * Telephone Encounter - Alison Messer RN - 03/26/2015 3:09 PM CST This message was from February but pt never returned calls and has read her [email or web address] message Alison Messer RN, BSN T END TECHNICIAN * Telephone Encounter - lAison Messer RN - 02/24/2015 8:52 AM CST [employer] sent Alison Messer RN BSN T END TECHNICIAN * Telephone Encounter - Mayh Figueroa RN - 02/20/2015 3:49 PM CST Left message with male to have patient call the clinic back. Needs an appointment. Myah Figueroa RN T END TECHNICIAN * Telephone Encounter - Tracy Dorado MD - 02/20/2015 12:37 PM FRONT END TECHNICIAN Due for appointment will refill T END TECHNICIAN * Telephone Encounter - Myah Figueroa RN - 02/19/2015 1:15 PM CST Routing refill request to provider for review/approval because: Patient needs to be seen because: Needs to be seen every 6 months. Myah Figueroa RN T END TECHNICIAN * Telephone Encounter - Fatoumata Parsons - 02/19/2015 7:55 AM CST Pending Prescriptions: Disp Refills traZODone (DESYREL) 50 MG tablet 90 tab*0 Sig: Take 1 tablet (50 mg) by mouth nightly as needed for sleep FLUoxetine (PROZAC) 20 MG capsule 90 cap*0 Sig: Take 1 capsule (20 mg) by mouth daily Trazodoone 50 MG Tablets Last Written Prescription Date: 11/18/2014 Last Fill Quantity: 90; # refills: 0 Last Office Visit with [facility] [place] care provider: 05/17/14 Last PHQ-9 score on record= PHQ-9 SCORE 11/18/2014 Total Score - Total Score 2 AST 21 12/14/2013 ALT 39 12/14/2013 Fluoxetine HCL 20 MG caps Last Written Prescription Date: 11/18/14 Last Fill Quantity: 90, # refills: 0 Last Office Visit with [facility] primary care provider: 05/17/2014 Last PHQ-9 score on record= PHQ-9 SCORE 11/18/2014 Total Score - Total Score 2 T END TECHNICIAN documented in this encounter Plan of Treatment Not on file documented as of this encounter Visit Diagnoses Diagnosis Anxiety- Primary Anxiety state, unspecified documented in this encounter Additional Health Concerns Infection Onset Date Last Indicated Resolved Time Rule Out COVID-19 01/19/2021 01/19/2021 01/19/2021 3:03 PM FRONT END TECHNICIAN Rule Out C-difficile 05/09/2021 05/10/2021 022 1:18 PM CDT C-difficile 05/10/2021 05/10/2021 06/09/2021 11:4 1 PM CDT Assessment Noted Time PHQ-9 Depression Total Score: 2 10/13/20 15 7:27 AM CDT documented as of this encounter Care Teams Chemical Operations Specialist Relationship Specialty Start Date End Date Tracy Dorado MD PCP - General Family Practice 11/02/12 01/07/19 [place] [address] [address] [address] PCP - Assigned PCP 02/13/17 04/11/18 [facility] [address] [address] [address] PCP - General 01/08/19 03/01/[address] [address] PCP - General 03/02/20 [place] [address] [address] [address] Assigned PCP 02/13/17 08/19/18 [place] [address] [address] [address] Assigned PCP 08/20/18 10/21/18 Kathy Ross PA-C 480 [facility] [address] [place] [address] Assigned PCP 10/22/18 08/18/19 [place] [address] [address] [address] Assigned PCP 08/19/19 08/25/19 Kathy Ross PA-C [address] [place] [address] Assigned PCP 08/26/19 10/20/19 [place] [address] [place] [address] Assigned PCP 10/21/19 07/02/20 [place] [address] [place] [address] Assigned PCP 07/03/20 02/14/21 Mary Kate Herrera PA-C [address] [place] [address] Assigned PCP 02/15/21 Randal Joe MD [facility] [address] [place] [address] 07/20/22 Mary Kate Herrera PA-C [address] [place] [address] Assigned Pain Medication Provider 01/01/23 03/02/23 documented as of this encounter
--- OUTSIDE RECORDS SUMMARY | 2023-09-08 23:10 | XMS_ITS | Encounter Summary ---
Author Organization [place] Address [address] [facility] [place] [address] Care Team Providers Care Storm Door Maker Name Role Phone Mary Clark MD Primary Care Provider [phone] Tracy Dorado MD Primary Care Provider Tracy Dorado MD Unavailable +[phone] Tracy Dorado MD Unavailable +[phone] Jasvir Montoya MD Unavailable + Kathy Ross PA-C Unavailable +[phone] [facility] Primary Ca re Provider + Jasvir Montoya MD Unavailable + [phone] Kathy Ross PA-C Unavailable +[phone] Tracy Dorado MD Unavailable +[phone] [facility] Primary Care Pro vider Jasvir Montoya MD Unavailable + [phone] Mary Kate Herrera PA-C Unavailable Randal Joe MD Unavailable [phone] Mary Kate Herrera PA-C Unavailable Encounter Details Date Type Department Care Team (Late st Contact Info) Description 09/27/2011 MyC Medical Advice [facility] [id number] [place] [phone] Mary Clark MD [address] [place] [address] Social History Tobacco Use Types Packs/Day Years Used Date Smoking Tobacco: Every Day Smokeless Tobacco: Never Comments:2 per day-mostly so cial smoker Alcohol Use Standard Drinks/Week Comments Yes 0 [...] Out COVID-19 01/19/2021 01/19/2021 01/19/2021 3:03 PM CONSTRUCTION COST ESTIMATOR Rule Out C-difficile 05/09/2021 05/10/2021 022 1:18 PM CDT C-difficile 05/10/2021 05/10/2021 06/09/2021 11:4 1 PM CDT documented as of this encounter Care Teams Storm Door Maker Relationship Specialty Start Date End Date Mary Clark MD PCP - General 06/26/04 11/01/12 Tracy Dorado MD PCP - General Family Practice 11/02/12 01/07/19 [place] [address] [address] [address] PCP - Assigned PCP 02/13/17 04/11/18 [facility]ie Mendez [facility] [address] [address] [address] PCP - General 01/08/19 03/01/[address] [address] PCP - General 03/02/20 [place] [address] [place] [address] Assigned PCP 02/13/17 08/19/18 [place] [address] [place] [address] Assigned PCP 08/20/18 10/21/18 Kathy Ross PA-C [address] [address] Assigned PCP 10/22/18 08/18/19 [place] [address] [address] [address] Assigned PCP 08/19/19 08/25/19 Kathy Ross PA-C 480 [facility] [address] [place] [address] Assigned PCP 08/26/19 10/20/19 [place] [address] [place] [address] Assigned PCP 10/21/19 07/02/20 [place] [address] [place] [address] Assigned PCP 07/03/20 02/14/21 Mary Kate Herrera PA-C [address] [place] [address] Assigned PCP 02/15/21 Randal Joe MD [facility] [address] [place] [address] 07/20/22 Mary Kate Herrera PA-C [address] [place] [address] Assigned Pain Medication Provider 01/01/23 03/02/23 documented as of this encounter
--- OUTSIDE RECORDS SUMMARY | 2023-09-08 23:10 | XMS_ITS | Encounter Summary ---
Author Organization [place] Address [address] [facility] [place] [address] Care Team Providers Care Associate Art Director Name Role Phone Mary Clark MD Primary Care Provider [phone] Tracy Dorado MD Primary Care Provider Tracy Dorado MD Unavailable +[phone] Tracy Dorado MD Unavailable +[phone] Jasvir Montoya MD Unavailable + 414 Kathy Ross PA-C Unavailable +[phone] [facility] Primary Ca re Provider + Jasvir Montoya MD Unavailable + [phone] Kathy Ross PA-C Unavailable +[phone] Tracy Dorado MD Unavailable +[phone] [facility] Primary Care Pro vider Jasvir Montoya MD Unavailable + [phone] Mary Kate Herrera PA-C Unavailable Randal Joe MD Unavailable +[phone] Mary Kate Herrera PA-C Unavailable Encounter Details Date Type Department Care Team (Late st Contact Info) Description 07/10/2012 MyC Medical Advice [address], [address] [place] [address] Mela Cm Social History Tobacco Use Types Packs/Day Years [...] Out COVID-19 01/19/2021 01/19/2021 01/19/2021 3:03 PM CLINICAL RESEARCH NURSE Rule Out C-difficile 05/09/2021 05/10/2021 022 1:18 PM CDT C-difficile 05/10/2021 05/10/2021 06/09/2021 11:4 1 PM CDT documented as of this encounter Care Teams Associate Art Director Relationship Specialty Start Date End Date Mary Clark MD PCP - General 06/26/04 11/01/12 Tracy Dorado MD PCP - General Family Practice 11/02/12 01/07/19 [place] [address] [address] [address] PCP - Assigned PCP 02/13/17 04/11/18 [facility] [address] [address] [address] PCP - General 01/08/19 03/01/[address] [facility] [address] [place] [address] PCP - General 03/02/20 [place] [address] [place] [address] Assigned PCP 02/13/17 08/19/18 [place] [address] [place] [address] Assigned PCP 08/20/18 10/21/18 Kathy Ross PA-C [address] [place] [facility] [place] [address] Assigned PCP 10/22/18 08/18/19 [place] [address] [place] [address] Assigned PCP 08/19/19 08/25/19 Kathy Ross PA-C [address] [facility] [place] [address] Assigned PCP 08/26/19 10/20/19 [place] [address] [place] [address] Assigned PCP 10/21/19 07/02/20 [place] [address] [place] [address] Assigned PCP 07/03/20 02/14/21 Mary Kate Herrera PA-C [address] [place] [address] Assigned PCP 02/15/21 Randal Joe MD [facility] [address] [place] [address] 07/20/22 Mary Kate Herrera PA-C [address] [place] [address] Assigned Pain Medication Provider 01/01/23 03/02/23 documented as of this encounter
--- OUTSIDE RECORDS SUMMARY | 2023-09-08 23:10 | XMS_ITS | Encounter Summary ---
Author Organization [place] Address [address] [facility] [place] [address] Care Team Providers Care Costume Designer Name Role Phone Tracy Dorado MD Primary Care Provider + Tracy Dorado MD Unavailable + Tracy Dorado MD Unavailable + Jasvir Montoya MD Unavailable + Kathy Ross PA-C Unavailable +[phone] [facility] Primary Ca re Provider + Jasvir Montoya MD Unavailable + Kathy Ross PA-C Unavailable +[phone] Tracy Dorado MD Unavailable + [facility] Primary Care Pro vider + Jasvir Montoya MD Unavailable + Mary Kate Herrera PA-C Unavailable Randal Joe MD Unavailable +[phone] Mary Kate Herrera PA-C Unavailable Encounter Details Date Type Department Care Team (Late st Contact Info) Description 01/06/2016 [facility] [id number] [place] [phone] Guillermina Carmen RN Social History Tobacco Use Types Packs/Day Years [...] Out COVID-19 01/19/2021 01/19/2021 01/19/2021 3:03 PM BAGGAGE CLERK Rule Out C-difficile 05/09/2021 05/10/2021 022 1:18 PM CDT C-difficile 05/10/2021 05/10/2021 06/09/2021 11:4 1 PM CDT Assessment Noted Time PHQ-9 Depression Total Score: 2 05/06/19 17 7:06 AM CDT documented as of this encounter Care Teams Costume Designer Relationship Specialty Start Date End Date Tracy Dorado MD PCP - General Family Practice 11/02/12 01/07/19 [place] [address] [address] [address] PCP - Assigned PCP 02/13/17 04/11/18 [facility] [address] [address] [address] PCP - General 01/08/19 03/01/20 [facility] [address] [place] [address] PCP - General 03/02/20 [place] [address] [place] [address] Assigned PCP 02/13/17 08/19/18 [place] [address] [place] [address] Assigned PCP 08/20/18 10/21/18 Kathy Ross PA-C [address] [place] [address] Assigned PCP 10/22/18 08/18/19 [place] [address] [place] [address] Assigned PCP 08/19/19 08/25/19 Kathy Ross PA-C 480 [facility] [address] [place] [address] Assigned PCP 08/26/19 10/20/19 [place] [address] [place] [address] Assigned PCP 10/21/19 07/02/20 [place] [address] [place] [address] Assigned PCP 07/03/20 02/14/21 Mary Kate Herrera [place]-C [address] [place] [address] Assigned PCP 02/15/21 Randal Joe [facility] [address] [address] [place], [place] [address] 07/20/22 Mary Kate Herrera PA-C [address] [place], [place] [address] Assigned Pain Medication Provider 01/01/23 03/02/23 documented as of this encounter
--- OUTSIDE RECORDS SUMMARY | 2023-09-08 23:10 | XMS_ITS | Encounter Summary ---
Author Organization [place] Address [address] [facility] [place] [address] Care Team Providers Care Invoice Coder Name Role Phone Tracy Dorado MD Primary Care Provider Kathy Ross PA-C Unavailable +[phone] [facility] Primary Ca re Provider Jasvir Montoya MD Unavailable + [phone] Kathy Ross PA-C Unavailable +[phone] Tracy Dorado MD Unavailable +[phone] [facility] Primary Care Pro vider Jasvir Montoya MD Unavailable + [address] Mary Kate Herrera PA-C Unavailable Randal Joe MD Unavailable [phone] Mary Kate Herrera PA-C Unavailable Reason for Visit * Reason Comments Medication Refill Encounter Details Date Type Department Care Team (Late st Contact Info) Description 11/22/2018 Refill [facility] [place] [address] [place] [address] Aimee Cheatham MD [address] [place] [address] Medication Refill Social History Tobacco Use Types [...] as of this encounter Visit Diagnoses Diagnosis Gastroesophageal reflux disease with esophagitis documented in this encounter Additional Health Concerns Infection Onset Date Last Indicated Resolved Time Rule Out COVID-19 01/19/2021 01/19/2021 01/19/2021 3:03 PM LIFT TEAM TECHNICIAN Rule Out C-difficile 05/09/2021 05/10/2021 022 1:18 PM CDT C-difficile 05/10/2021 05/10/2021 06/09/2021 11:4 1 PM CDT Assessment Noted Time PHQ-9 Depression Total Score: 2 08/20/19 19 10:23 AM CDT documented as of this encounter Care Teams Invoice Coder Relationship Specialty Start Date End Date Tracy Dorado MD PCP - General Family Practice 11/02/12 01/07/19 [facility] [address] [place] [address] PCP - General 01/08/19 03/01/20 [facility] [address] [place] [address] PCP - General 03/02/20 Kathy Ross PA-C [address] [place] [address] [address] [place] [address] Assigned PCP 10/22/18 08/18/19 [place] [address] [place] [address] Assigned PCP 08/19/19 08/25/19 Kathy Ross PA-C [address] [place] [address] Assigned PCP 08/26/19 10/20/19 [place] [address] [place] [address] Assigned PCP 10/21/19 07/02/20 [place] [address] [place] [address] Assigned PCP 07/03/20 02/14/21 Mary Kate Herrera PA-C [address] [facility] [address] Assigned PCP 02/15/21 Randal Joe MD [facility] [address] [place] [address] 07/20/22 Mary Kate Herrera PA-C [address] [place] [address] Assigned Pain Medication Provider 01/01/23 03/02/23 documented as of this encounter
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
--- OUTSIDE RECORDS SUMMARY | 2023-09-08 23:10 | XMS_ITS | Encounter Summary ---
Author Organization [place] Address [address] [facility] [place] [address] Care Team Providers Care Information Lead Name Role Phone Tracy Dorado MD Primary Care Provider + Tracy Dorado MD Unavailable + Tracy Dorado MD Unavailable + Jasvir Montoya MD Unavailable + Kathy Ross PA-C Unavailable +[phone] [facility] Primary Ca re Provider + Jasvir Montoya MD Unavailable + Kathy Ross PA-C Unavailable +[phone] Tracy Dorado MD Unavailable + 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 Rule Out C-difficile 05/09/2021 05/10/2021 022 1:18 PM CDT C-difficile 05/10/2021 05/10/2021 06/09/2021 11:4 1 PM CDT Assessment Noted Time PHQ-9 Depression Total Score: 2 05/07/19 17 7:15 AM CDT documented as of this encounter Care Teams Information Lead Relationship Specialty Start Date End Date Tracy Dorado MD PCP - General Family Practice 11/02/12 01/07/19 [place] [address] [address] [address] PCP - Assigned PCP 02/13/17 04/11/18 [facility] [address] [address] [address] PCP - General 01/08/19 03/01/20 [facility], [address] [address] PCP - General 03/02/20 [place] [address] [place] [address] Assigned PCP 02/13/17 08/19/18 [place] [address] [place] [address] Assigned PCP 08/20/18 10/21/18 Kathy Ross PA-C [address] [address] Assigned PCP 10/22/18 08/18/19 [place] [address] [place] [address] Assigned PCP 08/19/19 08/25/19 Kathy Ross PA-C 480 [facility] [address] [place] [address] Assigned PCP 08/26/19 10/20/19 [place] [address] [place] [address] Assigned PCP 10/21/19 07/02/20 [place] [address] [place] [address] Assigned PCP 07/03/20 02/14/21 Mary Kate Herrera PA-C [address] [place] [address] Assigned PCP 02/15/21 Randal Joe MD [facility] [address] [place] [address] 07/20/22 Mary Kate Herrera PA-C [address] [place] [address] Assigned Pain Medication Provider 01/01/23 03/02/23 documented as of this encounter
--- OUTSIDE RECORDS SUMMARY | 2023-09-08 23:10 | XMS_ITS | Encounter Summary ---
Author Organization [place] Address [address] [facility] [place] [address] Care Team Providers Care Hearing Therapist Name Role Phone Kathy Ross PA-C Unavailable [phone] [facility] Primary Ca re Provider Jasvir Montoya MD Unavailable [phone] Kathy Ross PA-C Unavailable [phone] Tracy Dorado MD Unavailable [facility] Primary Care Pro vider Jasvir Montoya MD Unavailable Mary Kate Herrera PA-C Unavailable Randal Joe MD Unavailable [phone] Mary Kate Herrera PA-C Unavailable Reason for Visit * Reason Comments Medication Refill Encounter Details Date Type Department Care Team (Late st Contact Info) Description 02/12/[address] [address] [place] [address] [place], [place] [id number] Medication Refill Social History Tobacco Use Types [...] as of this encounter Visit Diagnoses Diagnosis Anxiety Anxiety state, unspecified documented in this encounter Additional Health Concerns Infection Onset Date Last Indicated Resolved Time Rule Out COVID-19 01/19/2021 01/19/2021 01/19/2021 3:03 PM SUPERVISOR ROVING DEPARTMENT Rule Out C-difficile 05/09/2021 05/10/2021 022 1:18 PM CDT C-difficile 05/10/2021 05/10/2021 06/09/2021 11:4 1 PM CDT Assessment Noted Time PHQ-9 Depression Total Score: 2 08/20/19 19 10:23 AM CDT documented as of this encounter Care Teams Hearing Therapist Relationship Specialty Start Date End Date [facility] [address] [place] [address] PCP - General 01/08/19 03/01/[address] [address] PCP - General 03/02/20 Kathy Ross PA-C 480 [facility] [address] [place] [address] Assigned PCP 10/22/18 08/18/19 [place] [address] [place] [address] Assigned PCP 08/19/19 08/25/19 Kathy Ross PA-C [address] [place] [address] Assigned PCP 08/26/19 10/20/19 [place] [address] [place] [address] Assigned PCP 10/21/19 07/02/20 [place] [address] [place] [address] Assigned PCP 07/03/20 02/14/21 Mary Kate Herrera PA-C [address] [place] [address] Assigned PCP 02/15/21 Randal Joe MD [facility] [address] [place] [address] 07/20/22 Mary Kate Herrera PA-C [address] [place] [address] Assigned Pain Medication Provider 01/01/23 03/02/23 documented as of this encounter
--- OUTSIDE RECORDS SUMMARY | 2023-09-08 23:10 | XMS_ITS | Encounter Summary ---
Author Organization [place] Address [address] [facility] [place] [address] Care Team Providers Care Floral Clerk Name Role Phone Tracy Dorado MD Primary Care Provider + Tracy Dorado MD Unavailable + Tracy Dorado MD Unavailable + Jasvir Montoya MD Unavailable + Kathy Ross PA-C Unavailable +[phone] [facility] Primary Ca re Provider + Jasvir Montoya MD Unavailable + Kathy Ross PA-C Unavailable +[phone] Tracy Dorado MD Unavailable +470 [facility] Primary Care Pro vider + Jasvir Montoya MD Unavailable + [phone] Mary Kate Herrera PA-C Unavailable Randal Joe MD Unavailable +[phone] Mary Kate Herrera PA-C Unavailable Reason for Visit * Reason Onset Date Comments Medication Refill 05/30/2017 traZODone (CHIARA YREL) 50 MG tablet Encounter Details Date Type Department Care Team (Late st Contact Info) Description 05/29/[address], [address] [place] [address] [place] [address] [place] [address] Medication Refill (traZODone (DESYREL) 50 MG tablet) Social History Tobacco Use Types Packs/Day Years [...] encounter Miscellaneous Notes * Telephone Encounter - Myah Figueroa RN - 05/31/2017 11:02 AM CDT Prescription approved per [facility] Refill Protocol. Myah Figueroa RN * Telephone Encounter - Kait Molina - 05/30/2017 8:55 AM CDT Requested Prescriptions Pending Prescriptions Disp Refills ??? traZODone (DESYREL) 50 MG tablet [Pharmacy Med Name: TRAZODONE 50 MG TABLET] 90 tablet 1 Last Written Prescription Date: 12/03/16 Last Fill Quantity: 90, # refills: 1 Last Office Visit: 02/10/2017 Future Office Visit: Sig: TAKE 1 TABLET BY MOUTH EVERY NIGHT NEEDED FOR SLEEP Serotonin Modulators Passed 05/29/2017 6:43 AM Passed - Recent (12 mo) or future (30 days) visit within the authorizing provider's specialty Patient had office visit in the last 12 months or has a visit in the next 30 days with authorizing provider or within the authorizing provider's specialty. See Patient Info tab in inbasket, or Choose Columns in Meds & Orders section of the refill encounter. Passed - Patient is age 18 or older Passed - No active on record Passed - No positive test in past 12 months documented in this encounter Plan of Treatment Not on file documented as of this encounter Visit Diagnoses Diagnosis Anxiety Anxiety state, unspecified documented in this encounter Additional Health Concerns Infection Onset Date Last Indicated Resolved Time Rule Out COVID-19 01/19/2021 01/19/2021 01/19/2021 3:03 PM ACADEMY EDUCATION DIRECTOR Rule Out C-difficile 05/09/2021 05/10/2021 022 1:18 PM CDT C-difficile 05/10/2021 05/10/2021 06/09/2021 11:4 1 PM CDT Assessment Noted Time PHQ-9 Depression Total Score: 0 12/04/19 17 11:09 AM CDT documented as of this encounter Care Teams Floral Clerk Relationship Specialty Start Date End Date Tracy Dorado MD PCP - General Family Practice 11/02/12 01/07/19 [place] [address] [address] [address] PCP - Assigned PCP 02/13/17 04/11/18 [facility] [address] [address] [address] PCP - General 01/08/19 03/01/[address] [address] PCP - General 03/02/20 [place] [address] [address] [address] Assigned PCP 02/13/17 08/19/18 [place] [address] [place] [address] Assigned PCP 08/20/18 10/21/18 Kathy Ross PA-C [address] [place] [address] Assigned PCP 10/22/18 08/18/19 [place] [address] [place] [address] Assigned PCP 08/19/19 08/25/19 Kathy Ross PA-C [address] [place] [address] Assigned PCP 08/26/19 10/20/19 [place] [address] [place] [address] Assigned PCP 10/21/19 07/02/20 [place] [address] [place] [address] Assigned PCP 07/03/20 02/14/21 Mary Kate Herrera [place]-C [address] [place] [address] Assigned PCP 02/15/21 Randal Joe MD [facility] [address] [place] [address] 07/20/22 Mary Kate Herrera PA-C [address] [place] [address] Assigned Pain Medication Provider 01/01/23 03/02/23 documented as of this encounter
--- OUTSIDE RECORDS SUMMARY | 2023-09-08 23:10 | XMS_ITS | Encounter Summary ---
Author Organization [place] Address [address] [facility] [place] [address] Care Team Providers Care Stitch Marker Name Role Phone Tracy Dorado MD Primary Care Provider + Tracy Dorado MD Unavailable + Tracy Dorado MD Unavailable +[phone] Jasvir Montoya MD Unavailable + 128 Kathy Ross PA-C Unavailable +[phone] [facility] Primary Ca re Provider + Jasvir Montoya MD Unavailable + Kathy Ross PA-C Unavailable +[phone] Tracy Dorado MD Unavailable +007 [facility] Primary Care Pro vider + Jasvir Montoya MD Unavailable + [phone] Mary Kate Herrera PA-C Unavailable Randal Joe MD Unavailable +[phone] Mary Kate Herrera PA-C Unavailable Reason for Visit * Reason Onset Date Comments Medication Request 06/09/2017 Control for painful periods Encounter Details Date Type Department Care Team (Late st Contact Info) Description 06/09/2017 MyC Medical Advice [address], [address] [place] [address] [place] [address] [address] [address] Medication Request ( Control for pain... 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ie Mendez [facility] [address] [address] [address] PCP - General 01/08/19 03/01/20 [facility], [address] [address] PCP - General 03/02/20 [place] [address] [place] [address] Assigned PCP 02/13/17 08/19/18 [place] [address] [place] [address] Assigned PCP 08/20/18 10/21/18 Kathy Ross PA-C 480 [facility] 96 [place] [address] Assigned PCP 10/22/18 08/18/19 [place] [address] [place] [address] Assigned PCP 08/19/19 08/25/19 Kathy Ross PA-C 480 [facility] 96 [place] [address] Assigned PCP 08/26/19 10/20/19 [place] [address] [place] [address] Assigned PCP 10/21/19 07/02/20 [place] [address] [place] [address] Assigned PCP 07/03/20 02/14/21 Mary Kate Herrera PA-C [address] [place] [address] Assigned PCP 02/15/21 Randal Joe MD [facility] [address] [place] [address] 07/20/22 Mary Kate Herrera PA-C [address] [place] [address] Assigned Pain Medication Provider 01/01/23 03/02/23 documented as of this encounter
--- OUTSIDE RECORDS SUMMARY | 2023-09-08 23:10 | XMS_ITS | Encounter Summary ---
Author Organization [place] Address [address] [facility] [place] [address] Care Team Providers Care Cash Register Balancer Name Role Phone Mary Clark MD Primary Care Provider [phone] Tracy Dorado MD Primary Care Provider Tracy Dorado MD Unavailable +[phone] Tracy Dorado MD Unavailable +[phone] Jasvir Montoya MD Unavailable + Kathy Ross PA-C Unavailable +[phone] [facility] Primary Ca re Provider + Jasvir Montoya MD Unavailable + [phone] Kathy Ross PA-C Unavailable +[phone] Tracy Dorado MD Unavailable +539 [facility] Primary Care Pro vider Jasvir Montoya MD Unavailable + [phone] Mary Kate Herrera PA-C Unavailable Randal Joe MD Unavailable +[phone] Mary Kate Herrera PA-C Unavailable Encounter Details Date Type Department Care Team (Late st Contact Info) Description 12/11/2010 MyC Medical Advice [facility] [address] [place] [address] [place] [address] [place] [address] Social History Tobacco Use Types Packs/Day Years [...] Out COVID-19 01/19/2021 01/19/2021 01/19/2021 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 Rule Out C-difficile 05/09/2021 05/10/2021 022 1:18 PM CDT C-difficile 05/10/2021 05/10/2021 06/09/2021 11:4 1 PM CDT documented as of this encounter Care Teams Cash Register Balancer Relationship Specialty Start Date End Date Mary Clark MD PCP - General 06/26/04 11/01/12 Tracy Dorado MD PCP - General Family Practice 11/02/12 01/07/19 [place] [address] [address] [address] PCP - Assigned PCP 02/13/17 04/11/18 [facility]ie [facility] [address] [address] [address] PCP - General 01/08/19 03/01/20 [facility], [address] [address] PCP - General 03/02/20 [place] [address] [place], [place] [address] Assigned PCP 02/13/17 08/19/18 [place] [address] [place] [address] Assigned PCP 08/20/18 10/21/18 Kathy Ross PA-C 480 [facility] 96 [place] [address] Assigned PCP 10/22/18 08/18/19 [place] [address] [place] [address] Assigned PCP 08/19/19 08/25/19 Kathy Ross PA-C 480 [facility] 96 [place] [address] Assigned PCP 08/26/19 10/20/19 [place] [address] [place] [address] Assigned PCP 10/21/19 07/02/20 [place] [address] [place] [address] Assigned PCP 07/03/20 02/14/21 Mary Kate Herrera PA-C [address] [place] [address] Assigned PCP 02/15/21 Randal Joe MD [facility] [address] [place] [address] 07/20/22 Mary Kate Herrera PA-C [address] [place] [address] Assigned Pain Medication Provider 01/01/23 03/02/23 documented as of this encounter
--- OUTSIDE RECORDS SUMMARY | 2023-09-08 23:10 | XMS_ITS | Encounter Summary ---
Author Organization [place] Address [address] [facility] [place] [address] Care Team Providers Care Carburetor Rebuilder Name Role Phone Clinic - Allie Mendez [facility] Primary Ca re Provider Jasvir Montoya MD Unavailable [phone] Kathy Ross PA-C Unavailable +[phone] Tracy Dorado MD Unavailable [phone] [facility] Primary Care Pro vider Jasvir Montoya MD Unavailable [phone] Mary Kate Herrera PA-C Unavailable Randal Joe MD Unavailable [phone] Mary Kate Herrera PA-C Unavailable Encounter Details Date Type Department Care Team (Late st Contact Info) Description 08/25/2019 MyC Medical Advice [facility] [address] [place] [address] Anisa Krueger DO [address] [address] Social History Tobacco Use Types Packs/Day Years [...] Out COVID-19 01/19/2021 01/19/2021 01/19/2021 3:03 PM DIRECTOR EMERGENCY DEPARTMENT Rule Out C-difficile 05/09/2021 05/10/2021 022 1:18 PM CDT C-difficile 05/10/2021 05/10/2021 06/09/2021 11:4 1 PM CDT Assessment Noted Time PHQ-9 Depression Total Score: 3 08/07/19 20 4:15 PM CDT documented as of this encounter Care Teams Carburetor Rebuilder Relationship Specialty Start Date End Date Clinic - [facility] [address] [place] [address] PCP - General 01/08/19 03/01/[address] [address] PCP - General 03/02/20 [place] [address] [place] [address] Assigned PCP 08/19/19 08/25/19 Kathy Ross PA-C [address] [address] Assigned PCP 08/26/19 10/20/19 [place] [address] [place] [address] Assigned PCP 10/21/19 07/02/20 [place] [address] [place] [address] Assigned PCP 07/03/20 02/14/21 Mary Kate Herrera PA-C [address] [place] [address] Assigned PCP 02/15/21 Randal Joe MD [facility] [address] [place] [address] 07/20/22 Mary Kate Herrera PA-C [address] [place] [address] Assigned Pain Medication Provider 01/01/23 03/02/23 documented as of this encounter
--- OUTSIDE RECORDS SUMMARY | 2023-09-08 23:10 | XMS_ITS | Encounter Summary ---
Author Organization [place] Address [address] [facility] [place] [address] Care Team Providers Care Content Creation Manager Name Role Phone Mary Clark MD Primary Care Provider [phone] Tracy Dorado MD Primary Care Provider Tracy Dorado MD Unavailable +[phone] Tracy Dorado MD Unavailable +[phone] Jasvir Montoya MD Unavailable + [phone] Kathy Ross PA-C Unavailable +[phone] [facility] Primary Ca re Provider + Jasvir Montoya MD Unavailable + [phone] Kathy Ross PA-C Unavailable +[phone] Tracy Dorado MD Unavailable +[phone] [facility] Primary Care Pro vider Jasvir Montoya MD Unavailable + [phone] Mary Kate Herrera PA-C Unavailable Randal Joe MD Unavailable +[phone] Mary Kate Herrera PA-C Unavailable Encounter Details Date Type Department Care Team (Late st Contact Info) Description 05/03/2011 MyC Medical Advice [facility] [id number] [place] [address] Mary Clark MD [address] [place] [address] Social History Tobacco Use Types Packs/Day Years [...] Out COVID-19 01/19/2021 01/19/2021 01/19/2021 3:03 PM IRON POURER Rule Out C-difficile 05/09/2021 05/10/2021 022 1:18 PM CDT C-difficile 05/10/2021 05/10/2021 06/09/2021 11:4 1 PM CDT documented as of this encounter Care Teams Content Creation Manager Relationship Specialty Start Date End Date Mary Clark MD PCP - General 06/26/04 11/01/12 Tracy Dorado MD PCP - General Family Practice 11/02/12 01/07/19 [place] [address] [address] [address] PCP - Assigned PCP 02/13/17 04/11/18 [facility] [address] [address] [address] PCP - General 01/08/19 03/01/[address] [address] PCP - General 03/02/20 [place] [address] [place] [address] Assigned PCP 02/13/17 08/19/18 [place] [address] [place] [address] Assigned PCP 08/20/18 10/21/18 Kathy Ross PA-C [address] [address] Assigned PCP 10/22/18 08/18/19 [place] [address] [address] [address] Assigned PCP 08/19/19 08/25/19 Kathy Ross PA-C 480 [facility] 96 [place] [address] Assigned PCP 08/26/19 10/20/19 [place] [address] [place] [address] Assigned PCP 10/21/19 07/02/20 [place] [address] [place] [address] Assigned PCP 07/03/20 02/14/21 Mary Kate Herrera PA-C [address] [place] [address] Assigned PCP 02/15/21 Randal Joe MD [facility] [address] [place] [address] 07/20/22 Mary Kate Herrera PA-C [address] [place] [address] Assigned Pain Medication Provider 01/01/23 03/02/23 documented as of this encounter
--- OUTSIDE RECORDS SUMMARY | 2023-09-08 23:10 | XMS_ITS | Encounter Summary ---
Author Organization [facility] Address [address] [facility] [place] [address] Care Team Providers Care Machine Feed Operator Name Role Phone Tracy Dorado MD Primary Care Provider + Tracy Dorado MD Unavailable + Jasvir Montoya MD Unavailable + Kathy Ross PA-C Unavailable [phone] [facility] Primary Ca re Provider + Jasvir Montoya MD Unavailable + Kathy Ross PA-C Unavailable [phone] Tracy Dorado MD Unavailable +[phone] [facility] Primary Care Pro vider + Jasvir Montoya MD Unavailable + [phone] Mary Kate Herrera PA-C Unavailable Randal Joe MD Unavailable [phone] Mary Kate Herrera PA-C Unavailable Reason for Visit * Reason Onset Date Comments MyChart Communication 08/04/2018 Encounter Details Date Type Department Care Team (Latest Contact Info) Description 08/04/2018 MyC Medical Advice [facility] [address] [place] [phone] Guillermina Carmen RN MyChart Communication Social History Tobacco Use Types Packs/Day Years [...] Out COVID-19 01/19/2021 01/19/2021 01/19/2021 3:03 PM BENDER HELPER Rule Out C-difficile 05/09/2021 05/10/2021 022 1:18 PM CDT C-difficile 05/10/2021 05/10/2021 06/09/2021 11:4 1 PM CDT Assessment Noted Time PHQ-9 Depression Total Score: 3 06/19/19 18 2:19 PM CDT documented as of this encounter Care Teams Machine Feed Operator Relationship Specialty Start Date End Date Tracy Dorado MD PCP - General Family Practice 11/02/12 01/07/19 [facility] [address] [address] PCP - General 01/08/19 03/01/20 [facility] [address] [place] [address] PCP - General 03/02/20 [place] [address] [address] [address] Assigned PCP 02/13/17 08/19/18 [place] [address] [place] [address] Assigned PCP 08/20/18 10/21/18 Kathy Ross PA-C [address] [facility] [address] [place] [address] Assigned PCP 10/22/18 08/18/19 [place] [address] [place] [address] Assigned PCP 08/19/19 08/25/19 Kathy Ross PA-C [address] [facility] [address] [place] [address] Assigned PCP 08/26/19 10/20/19 [place] [address] [place] [address] Assigned PCP 10/21/19 07/02/20 [place] [address] [place] [address] Assigned PCP 07/03/20 02/14/21 Mary Kate Herrera PA-C [address] [place] [address] Assigned PCP 02/15/21 Randal Joe MD [facility] [address] [place] [address] 07/20/22 Mary Kate Herrera PA-C [address] [place] [address] Assigned Pain Medication Provider 01/01/23 03/02/23 documented as of this encounter
--- OUTSIDE RECORDS SUMMARY | 2023-09-08 23:11 | XMS_ITS | Encounter Summary ---
Author Organization [employer] Address [address] [address] Care Team Providers Care Skin Diving Teacher Name Role Phone Randal Joe MD Primary Care Provider [phone] Reason for Visit * Reason Comments Concerns Encounter Details Date Type Department Care Team (Latest Contact Info) Description 09/01/2023 4:00 PM CDT Routine [place] [address] Obstetrics/Gynecolo [address] [place] [address] [place] [address] [place] [address] Concerns Social History Tobacco Use Types Packs/Day Years Used Date Smoking Tobacco: Former Cigarettes Q uit: 08/28/2017 Passive Smoke Exposure: Never Smokeless Tobacco: Never Alcohol Use Standard Drinks/Week Comments Not Currently 0 (1 standard drink = 0.6 oz pur e alcohol) occ PHQ-2 Answer Date Recorded PHQ-2 Score 2 04/27/2022 Depression Answer Date Recor ded Last EPDS Total Score 8 08/15/2023 Last EPDS Self Harm Result 0-->never 08/14 Estimated Date of Delivery Comme nts Yes 02/04/2024 Based on last me nstrual period of 04/30/2023 (Exact Date) Sex and Gender Information Value Date Recorded Sex Assigned at Not on file Gender Identity Not on file Sexual Orientation Not on file documented as of this encounter Last Filed Vital Signs Vital Sign Reading Time Taken Comments Blood Pressure 100/45 09/01/2023 9:02 AM CDT Pulse 82 09/01/2023 9:02 AM CDT Temperature - - Respiratory Rate - - Oxygen Saturation - - Inhaled Oxygen Concentration - - Weight 82.6 kg (182 lb) 09/01/2023 9:02 AM CDT Height - - Body Mass Index 28.08 09/01/2023 8:32 AM CDT documented in this encounter Patient Instructions * Patient Instructions* Michaela Lopez MD - 09/01/2023 4:00 PM CDT Images from the original note were not included. Thank you for choosing us for your care. We recommend you review the following information in Your Guide to : Genetic Testing Testing Possible Complications Schedule your ultrasound now if you have not already scheduled it. Your ultrasound should be completed at 20 weeks of . Drinking any amount of alcohol during is not safe. Watch this short video by [employer] [place]: Proof: Some Think Drinking During is OK. It???s Not. - Ronda video Marijuana use is never recommended while or . Learn why here: https://[employer]/76389.pdf is a time of transition. If you feel overwhelmed, anxious or depressed, see the followingresources: Emotional Distress During and After : https://[employer]/21579.pdf Resources & Support for New & Expecting Parents: https://[employer]/63981.pdf The 3 books provided throughout are also available digitally. Here are links to each book: Your Guide to : https://user-[employer].bz/StsxioLbxbeohp-Qbeu-Sloxr-nr-a-Jkhrbat- Preparing for Childbirth: https://user-[employer].bz/FuhuoaHscyvlng-Lnc-Mmax-of-Motherhood Taking Care of You and Your Boomer: https://user-[employer].bz/SprtutYohleiua-T-Ioj-Beginning [place] for our free herb called ???myHealthyPregnancy?? powered by [employer]. The herb offers many quick articles and videos on , labor, , , and newborncare. Find instructions here: Or click on this link: myHealthyPregnancy tracker herb [facility] documented in this encounter Progress Notes * Michaela Lopez MD - 09/01/2023 4:00 PM CDT [facility] Obstetrics & Gyne[facility] Clinic CC: Follow-up care S: Alisia Velasquez is not feeling well today. She is distressed and tearful over her constipation and her baby's health. She has lost 3 pounds, and is very concerned that baby will from not getting enough and from [her] missing vitamins. Education given as to caloric needs. Baby boy is moving, and FHTs reassuring. Denies loss of fluid, changes in vaginal discharge or vaginal bleeding. Notes no regular contractions. Reports good movement. Denies headache, vision changes, chest pain, shortness of breath. No hematuria, dysuria or other. She has had multiple visits with care team and ED, with concerns about constipation and bowel obstruction. She has been offered antinausea meds and several plans for constipation treatment. She continues to be very afraid of bowel obstruction/impaction. complications: Patient Active Problem List Diagnosis Date Noted Supervision of high risk in second trimester 07/07/2023 Nausea/vomiting in 07/07/2023 Prolonged Q-T interval on ECG 05/09/2021 Chronic migraine without aura without status migrainosus, not intractable 07/25/2015 Seronegative arthritis 05/17/2014 Vitamin D deficiency (HRC) 05/17/2014 Overview Note: Problem list name updated by automated process. Provider to review Anxiety (HR) 07/17/2012 Mild major depression (HR) 06/03/2010 Panic disorder without agoraphobia 06/03/2005 Overview Note: LW Onset: ; Panic Disorder w/o Agoraphobia O: Filed Vitals: 09/01/23 0902 BP: 100/45 Pulse: 82 Weight: 182 lb (82.6 kg) Gen: alert, oriented, NAD See OB flowsheet. A/P: 38 y.o. at 17w5d by US presenting for follow-up care. Constipation: - Continue MiraLAX and Colace over the weekend. Fleet's enema PRN - Nutrition consult - F/up with PCP prn UTI in : - Complete Macrobid as prescribed - UC in 1 week Care: - OB labs reviewed: Blood type: A pos Rubella: immune HIV: negative Hep B Ag: negative Treponema: negative - Genetics: NIPS low risk, NT low risk with possible placenta previa - Anatomy ultrasound: L2 US scheduled 09/18 - Continue taking vitamins Follow-up in clinic in 2 weeks. Michaela Lopez MD documented in this encounter Plan of Treatment Upcoming Encounters Date Type Department Care Team (Late st Contact Info) Description 09/12/2023 3:20 PM CDT Appointment [facility]-MEDICAL DIRECTOR/HEAD TEAM PHYSICIAN [address] [facility], [facility] [address] [place] [phone] [place] [address] [place] [address] 09/19/2023 10:00 AM CDT Appointment [facility] [address] [place] [address], [address] [phone] Maria Dolores Del Real, SUPERVISOR PASTE PLANT, MARINE RADIO INSTALLER AND SERVICER [id number] [place] [address] Dr Guevar[address] [place] [address] 09/19/2023 11:00 AM CDT Appointment [facility] [address] [place] [address], [address] [place] [phone] Shaggy Smith MD [address] [place] [address] [place] [address] [place], [place] [address] 10/13/2023 9:00 AM CDT Appointment [facility]-MEDICAL DIRECTOR/HEAD TEAM PHYSICIAN [address] [facility], [address] [place] [phone] Maria Dolores Del Real APRN, MARINE RADIO INSTALLER AND SERVICER [address] [place] [address] documented as of this encounter Visit Diagnoses Diagnosis Supervision of high risk in second trimester- Primary Unspecified high-risk Supervision of high-risk of elderly multigravida documented in this encounter Care Teams Skin Diving Teacher Relationship Specialty [place] [address] [place] [address] PCP - General Family Practice 11/03/20 documented as of this encounter
--- OUTSIDE RECORDS SUMMARY | 2023-09-08 23:11 | XMS_ITS | Encounter Summary ---
Author Organization [employer] Address [address], [place] [address] Care Team Providers Care Qualified Craft Worker Electrician Name Role Phone Randal Joe MD Primary Care Provider [phone] Reason for Visit * Reason Comments Abdominal Pain Encounter Details Date Type Department Care Team (Late st Contact Info) Description 08/30/2023 Nurse Triage [facility] Family Medicine [address] [place] [phone] [place] [address] [place], [place] [phone] Abdominal Pain Social History Tobacco Use Types Packs/Day Years Used Date Smoking Tobacco: Former Cigarettes Q uit: 08/28/2017 Smokeless Tobacco: Never Alcohol Use Standard Drinks/Week [...] on file documented as of this encounter Nursing Notes * Nakia Fuentes, RN - 08/30/2023 11:47 AM CDT Reason for Disposition Intermittent lower abdominal pain lasting > 24 hours Protocols used: - Abdominal Pain Less Than 20 Weeks [id number] Spoke with pt. Is almost 17 weeks . Has struggled with constipation issues that OB is awareof. States that this was discussed at last OB appointment on 08/26/23. Did go to ED this weekend on 08/28/23 as was having diarrhea and was told to cut back on her laxatives which pt has been doing. Did pass soft stool yesterday. Stool today was soft but more formed than yesterday. Has been having pain on her L side above her naval area and below her rib cage for over 24 hours now which is new since being seen in ED. Has not been seen for this nor discussed with her PCP. Rates pain as mild to moderate when occurs. Describes pain as prickly and sharp when present. Will last for a few seconds up to a an hour at most. Did lose 1 lb today when weighed herself. States that her baby bump looks smaller today than usual. Denies any vaginal bleeding or spotting. Presently at work. All questions answered. Advised should be seen now which pt was in agreement to doing. [facility] Pt verbalizes understanding of info. To call back to PCP or OB if has further concerns/questio ns. Problem list reviewed as related to this call. documented in this encounter Plan of Treatment Upcoming Encounters Date Type Department Care Team (Late st Contact Info) Description 09/12/2023 3:20 PM CDT Appointment [facility]-WIRER MAINTENANCE [address] [facility], [facility] [address] [place] [phone] [place] [address] [place] [address] 09/19/2023 10:00 AM CDT Appointment [facility] [address] [facility], [address] [place] [phone] Maria Dolores Del Real APRN, BALLISTICS TESTER [address] [place], [place] [address] 09/19/2023 11:00 AM CDT Appointment [facility] [address] [place] [address], [address] [place] [phone] Shaggy Smith MD [address] [place] [address] [address] [place], [place] [address] 10/13/2023 9:00 AM CDT Appointment [facility]-WIRER MAINTENANCE [address] [facility], [address] [phone] Maria Dolores Del Real APRN, BALLISTICS TESTER [address] G[address] [place] [address] documented as of this encounter Visit Diagnoses Not on filedocumented in this encounter Care Teams Qualified Craft Worker Electrician Relationship Specialty [place] [address] [place] [address] PCP - General Family Practice 11/03/20 documented as of this encounter
--- OUTSIDE RECORDS SUMMARY | 2023-09-08 23:11 | XMS_ITS | Encounter Summary ---
Author Organization [employer] Address [address], [place] [address] Care Team Providers Care Human Resources Communications Manager Name Role Phone Randal Joe MD Primary Care Provider Reason for Visit * Reason Comments BOWEL PROBLEMS Encounter Details Date Type Department Care Team (Late st Contact Info) Description 09/08/2023 Nurse Triage [facility] [address] [place], [place] [phone] [place] [address] [place], [place] [phone] BOWEL PROBLEMS Social History Tobacco Use Types Packs/Day Years [...] as of this encounter Nursing Notes * Gunjan Gar RN - 09/08/2023 9:04 PM CDT documented in this encounter Plan of Treatment Upcoming Encounters Date Type Department Care Team (Late st Contact Info) Description 09/12/2023 3:20 PM CDT Appointment [facility]-MOCCASIN SEWER [address] [place] [phone] Miranda Metzger DO [address] [place] [address] [phone] 09/19/2023 10:00 AM CDT Appointment [facility] [address] [place] [phone] Maria Dolores Del Real APRN, FLARE WORKER [address] [place] [address] [address] 09/19/2023 11:00 AM CDT Appointment [facility] [address] [place] [address], [address] [phone] Shaggy Smith MD [address] [place] [phone] 10/13/2023 9:00 AM CDT Appointment [facility]-MOCCASIN SEWER [address] [place] [phone] Maria Dolores Del Real APRN, FLARE WORKER [address] [place] [address] [phone] documented as of this encounter Visit Diagnoses Not on filedocumented in this encounter Care Teams Human Resources Communications Manager Relationship Specialty [place] [address] [place] [address] PCP - General Family Practice 11/03/20 documented as of this encounter
--- OUTSIDE RECORDS SUMMARY | 2023-09-08 23:11 | XMS_ITS | Encounter Summary ---
Author Organization [employer] Address [address], [place] [address] Care Team Providers Care It Infrastructure Specialist Name Role Phone Randal Joe MD Primary Care Provider [phone] Reason for Visit * Reason Comments Medication Questions Encounter Details Date Type Department Care Team (Late st Contact Info) Description 09/04/2023 Telephone [facility] [address] [place] [address] [place] [address] [place] [address] Medication Questions Social History Tobacco Use Types Packs/Day Years [...] as of this encounter Nursing Notes * Minoo Brumfield - 09/05/2023 2:28 PM CDT Called patient, reviewed provider's note below. Patient verbalizes understanding and agrees with plan. * Minoo Brumfield - 09/05/2023 2:26 PM CDT Hi 1. Is it ok to take her ASA and Pepcid with the fluoxetine? She saw there were interaction warningswith those medications. -yes, that's fine 2. Is it ok to take the phenergan instead of the Reglan with the fluoxetine? -also fine 3. Is it ok to take Benadryl with the meds if she needs to? -also fine 4. Dropped off FMLA forms. D/T recent appointments and needing to be seen in ED, HR advised completing to help protect her job. Included a stick note with accomodation recommendations from HR. -FMLA forms done Fri. If she finds that she needs more time, the ED will have to give her a sick note. Michaela Lopez MD 1:32 PM 09/05/2023 * Carin Root, RN - 09/05/2023 9:51 AM CDT Called patient with message from provider, see note. Patient verbalizes understanding and some morequestions: Is it ok to take her ASA and Pepcid with the fluoxetine? She saw there were interaction warnings with those medications. Is it ok to take the phenergan instead of the Reglan with the fluoxetine? Is it ok to take Benadryl with the meds if she needs to? Dropped off FMLA forms. D/T recent appointments and needing to be seen in ED, HR advised completingto help protect her job. Included a stick note with accomodation recommendations from HR. * Carin Root RN - 09/05/2023 9:34 AM CDT Images from the original note were not included. Michaela Lopez MD [facility] Triage7 minutes ago (9:26 AM) AF I feel that this is a safe choice, given that most patients go off of the nausea medication within the next few weeks, the risk is low, and she has done well on this SSRI in the past. Any risk will be similar with other SSRIs. AF * Rosangela Sandoval RN - 09/04/2023 6:22 PM CDT Clinician: Review and advise Patient/hemodialysis patient care specialist request: Input needed: medication concerns Specific Request: Pt calling reporting concerns regarding Fluoxetine rx. Pt has concerns that medication is unsafe toutilize with metoclopramide and ondansetron. Advised that provider did prescribe all medications within 24 hour period, documentation indicates that provider aware of concurrent medication use. Pt requests alternate medication. Advised pt that all SSRI's carry Serotonin Syndrome warning. Pt requests provider input despite reassurance. documented in this encounter Plan of Treatment Upcoming Encounters Date Type Department Care Team (Late st Contact Info) Description 09/12/2023 3:20 PM CDT Appointment [facility]-RAIMANN MACHINE OPERATOR [address] [facility], [address] [phone] [place] [address] [address] [place] [address] 09/19/2023 10:00 AM CDT Appointment [facility] [address] [facility], [address] [phone] Maria Dolores Del Real, DENTAL HYGIENE TEACHER, CONCRETE PANEL INSTALLER [address] [place] [address] [place] [phone] 09/19/2023 11:00 AM CDT Appointment [facility] [address]855 [facility], [address] [place] [phone] Shaggy Smith MD 9[address] [facility] [address] [facility] [place], [place] [address] 10/13/2023 9:00 AM CDT Appointment [facility]-RAIMANN MACHINE OPERATOR [address] [facility], [address] [place] [phone] Maria Dolores Del Real APRN, CONCRETE PANEL INSTALLER [address] [facility] [address] [place], [place] [phone] documented as of this encounter Visit Diagnoses Not on filedocumented in this encounter Care Teams It Infrastructure Specialist Relationship Specialty [place] [address] [place] [address] PCP - General Family Practice 11/03/20 documented as of this encounter
--- OUTSIDE RECORDS SUMMARY | 2023-09-08 23:11 | XMS_ITS | Encounter Summary ---
Author Organization [employer] Address [address], [place] [address] Care Team Providers Care Trumpet Player Name Role Phone Randal Joe MD Primary Care Provider [phone] Reason for Visit * Reason Comments Concerns Encounter Details Date Type Department Care Team (Late st Contact Info) Description 08/16/2023 Telephone [facility]-MANAGER FIXED INCOME [address] [facility], [address] [phone] Maria Dolores Del Real, INSURANCE WRITER, DIGITAL TECH [address] [place] [address] Concerns Social History Tobacco Use Types Packs/Day [...] encounter Nursing Notes * Minoo Brumfield - 08/16/2023 3:56 PM CDT Patient calling for reassurance. 15 weeks . Yesterday had intercourse with in missionary position. Patient was on the bottom and states during had his weight on patient. No pain or other concerns, but now patient worried. Reassurance provided. Advised using other positions to avoid this in the future to avoid any worry. Provided education about avoiding laying flat on backas progresses. Patient verbalizes understanding and agrees with plan. documented in this encounter Plan of Treatment Upcoming Encounters Date Type Department Care Team (Late st Contact Info) Description 09/12/2023 3:20 PM CDT Appointment [facility]-MANAGER FIXED INCOME [address] [place] [phone] [place] [address] [place] [address] 09/19/2023 10:00 AM CDT Appointment [facility] [address] [place] [phone] Maria Dolores Del Real APRN, DIGITAL TECH [address] [place] [address] 09/19/2023 11:00 AM CDT Appointment [facility] [address] [place] [address] [address] [place] [phone] Shaggy Smith MD [address] [place] [address] [place] [address] [place] [address] 10/13/2023 9:00 AM CDT Appointment [facility]-MANAGER FIXED INCOME [address] [place] [address], [address] [phone] Maria Dolores Del Real, INSURANCE WRITER, DIGITAL TECH [address] [place] [address] documented as of this encounter Visit Diagnoses Not on filedocumented in this encounter Care Teams Trumpet Player Relationship Specialty [place] [address] [place] [address] PCP - General Family Practice 11/03/20 documented as of this encounter
--- OUTSIDE RECORDS SUMMARY | 2023-09-08 23:11 | XMS_ITS | Encounter Summary ---
Author Organization [employer] Address [address] [address] Care Team Providers Care Dairy Equipment Installer Name Role Phone Randal Joe MD Primary Care Provider [phone] Encounter Details Date Type Department Care Team (Late st Contact Info) Description 09/02/2023 1:50 PM CDT Lab Visit [facility] [address] [facility] [place] [address] Anxiety in in second trimester, antepartum (HRC) Social History Tobacco Use Types Packs/Day Years [...] as of this encounter Plan of Treatment Upcoming Encounters Date Type Department Care Team (Late st Contact Info) Description 09/12/2023 3:20 PM CDT Appointment [facility]-CAMPAIGN MARKETING SPECIALIST [address] [facility], [facility] [address] [place] [phone] [place]ger [place] [address] [place] [address] Dr Guevara Mason [place], [place] [phone] 09/19/2023 10:00 AM CDT Appointment [facility] [address] [place] [phone] Maria Dolores Del Real, DIRECTOR MERIT SYSTEM, PHLEBOTOMY TECHNOLOGIST [address] [place] [address] Dr Guevara Mason [place], [place] [phone] 09/19/2023 11:00 AM CDT Appointment [facility] [address] [place] [phone] Shaggy Smith MD [address] [place] [address] [facility] [place] [place] [phone] 10/13/2023 9:00 AM CDT Appointment [facility]-CAMPAIGN MARKETING SPECIALIST [address] [place] [phone] Maria Dolores Del Real DIRECTOR MERIT SYSTEM, PHLEBOTOMY TECHNOLOGIST [address] [place] [address] Dr Guevara Mason [place], [place] [phone] documented as of this encounter Procedures Procedure Name Priority Date/Time Associated Diagnosis Comments URINE CULTURE Routine 09/02/2023 1:48 PM CDT Anxiety in in second trimester, antepartum (HRC) URINALYSIS ROUTINE, MICRO/CULTURE IF POS Routine 09/02/2023 1:48 PM CDT Anxiety in in second trimester, antepartum (HRC) documented in this encounter Results * (ABNORMAL) Urine Culture (09/02/2023 1:48 PM CDT) Urine Culture Growth(A) 09/04/2023 7:45 AM CDT [facility] Urine Culture <10,000 CFU/mL Mixed Bacterial Growth 09/04/2023 7:45 AM [facility] Comment: Mixed Bacterial Growth indicates the specimen is likely contaminated at collection with urogenital and/or fecal nicole. The presence of organisms at <10,000 cfu/ml in culture, UTI unlikely. Urine URINE SPECIMEN COLLECTION, CLEAN CATCH / Unknown Non-blood Collection / Unknown 09/02/2023 1:48 PM CDT 09/02/2023 1:48 PM CDT Michaela Lopez MD LAB_[id number] [place] [address] * (ABNORMAL) Urinalysis Routine, Micro/Culture if Pos: Clean Catch (09/02/2023 1:48 PM CDT) Urine Culture Comment Urinalysis results do not meet criteria for urine culture reflex. 09/02/2023 1:50 PM [facility] Urine Color Yellow 09/02/2023 1:50 PM [facility] Urine Clarity Clear Clear 09/02/2023 1:50 PM [facility] Specific [place], Urine >=1.030(A) 1.005 - 1.030 09/02/2023 1:50 PM [facility] PH Urine 6.0 5.0 - 8.0 09/02/2023 1:50 PM [facility] Protein, Urine Qual (mg/dL) Negative Neg/Trace 09/02/2023 1:50 PM [facility] Glucose Urine Qual (mg/dL) Negative Negative 09/02/2023 1:50 PM [facility] Ketones, Urine (mg/dL) Negative Negative 09/02/2023 1:50 PM [facility] Urobilinogen, Urine (EU/dL) 1.0 <2.0 09/02/2023 1:50 PM [facility] Bilirubin Urine Negative Negative 09/02/2023 1:50 PM [facility] Blood, Urine Negative Neg/Trace 09/02/2023 1:50 PM CD[facility] Nitrite Urine Negative Negative 09/02/2023 1:50 PM CDT [facility] Leukocyte Est. Negative Negative 09/02/2023 1:50 PM CDT [facility] Urine Source Clean Catch 09/02/2023 1:50 PM CDT [facility] Urine URINE SPECIMEN COLLECTION, CLEAN CATCH / Unknown Non-blood Collection / Unknown 09/02/2023 1:48 PM CDT 09/02/2023 1:48 PM CDT Michaela Lopez MD LAB_1 [facility] [address] [place] [address] [[email or web address]] documented in this encounter Visit Diagnoses Diagnosis Anxiety in in second trimester, antepartum (HRC) documented in this encounter Care Teams Dairy Equipment Installer Relationship Specialty [place] [address] [place], [place] [phone] PCP - General Family Practice 11/03/20 documented as of this encounter
--- OUTSIDE RECORDS SUMMARY | 2023-09-08 23:11 | XMS_ITS | Encounter Summary ---
Author Organization [employer] Address [address] [address] Care Team Providers Care Buckle Sewer Machine Name Role Phone Randal Joe MD Primary Care Provider Encounter Details Date Type Department Care Team (Late st Contact Info) Description 09/02/2023 Telephone [place] [address] Obstetrics/Gynecology [address] [place] [address] [place] [address] [place], [place] [phone] Social History Tobacco Use Types Packs/Day Years [...] as of this encounter Nursing Notes * Carin Root, RN - 09/02/2023 8:22 AM CDT 38 y.o. currently 17w6d calling very tearful on phone after being seen in ED overnight for constipation, epigastric pain and dehydration concerns. States not given IV fluids and given RX to do an enema at home, has tried doing at home in the past and was unable to do it. Had hoped it would've been done in ED. Patient upset and crying because she feels there is something wrong. Had no relief after being seen in ED and concerned about the lab results done at ED. Encouraged to be seen back in ED if still struggling with abdominal pain, rectal pain and dehydration concerns; patient doesn't want to be seen at [facility] ED again. Will present to [facility]. Aware unable to give IV fluids or enema in clinic.Problem list reviewed as related to this call. Future Appointments Provider Department Center 09/02/2023 1:00 PM Michaela Lopez MD [place] [address] Obstetrics/Gynecology [facility] documented in this encounter Plan of Treatment Upcoming Encounters Date Type Department Care Team (Late st Contact Info) Description 09/12/2023 3:20 PM CDT Appointment [facility]-SPECIAL DELIVERY MESSENGER [address] [facility] [address] [place] [phone] Miranda Metzger, [address] Guevara [address] [place] [address] 09/19/2023 10:00 AM CDT Appointment [facility] [address] [facility] [address] [place] [phone] Maria Dolores Del Real, CARDIAC TECH, FREIGHT BOOKER [address] Guevara [address] [place] [address] 09/19/2023 11:00 AM CDT Appointment [facility] [address] [facility] [place] [address] [place] [phone] Shaggy Smith MD [address] [place] [address] Dr Guevara [address] [place] [phone] 10/13/2023 9:00 AM CDT Appointment [facility]-SPECIAL DELIVERY MESSENGER [address] [facility], [address] [place] [phone] Maria Dolores Del Real, CARDIAC TECH, FREIGHT BOOKER [address] Guevara [address] [place], [place] [address] documented as of this encounter Visit Diagnoses Not on filedocumented in this encounter Care Teams Buckle Sewer Machine Relationship Specialty [place] [address] [place] [address] PCP - General Family Practice 11/03/20 documented as of this encounter
--- OUTSIDE RECORDS SUMMARY | 2023-09-08 23:11 | XMS_ITS | Encounter Summary ---
Author Organization [employer] Address [address], [place] [address] Care Team Providers Care Assistant Technician Name Role Phone Randal Joe MD Primary Care Provider [phone] Reason for Visit * Reason Comments Constipation Encounter Details Date Type Department Care Team (Late st Contact Info) Description 08/28/2023 Nurse Triage [facility] [address] [place], [place] [phone] [place] [address] [place], [place] [phone] Constipation Social History Tobacco Use Types Packs/Day Years [...] as of this encounter Nursing Notes * Bowling, Meg M, RN - 08/28/2023 8:45 PM CDT Spoke with Alisia, she has had constipation issues since the beginning of her . She is concerned about intestinal blockages.She was seen in the ER Tuesday for constipation. She was also seen in the ER this morning for dark tarry stools that she had last night but it was attributed to something she ate. She had a softer BM today and has not taken any stool softeners since yesterday. RN advised to hold off on colace tonight. She has a dull sore mild/moderate pain in her left lower abdomin that is intermittent. She will go to tomorrow after work. She also inquired about and med interaction of tylenol and Aspirin. No interaction noted per micro medex, Aspirin in contraindicated however her OB provider recommends for prevention of preeclampsia. Denies fever or vaginal bleeding. Problem list reviewed as related to this call. Reason for Disposition [1] Abdomen pain AND [2] < 20 weeks Constipation is a chronic symptom (recurrent or ongoing AND present > 4 weeks) [1] Intermittent lower abdominal pain (e.g., cramping) AND [2] present > 24 hours Protocols used: - [id number], - Abdominal Pain Less Than 20 Weeks [id number] documented in this encounter Plan of Treatment Upcoming Encounters Date Type Department Care Team (Late st Contact Info) Description 09/12/2023 3:20 PM CDT Appointment [facility]-DIRECTOR OF TEENAGE ACTIVITIES [address] [place] [address], [address] [place] [address] [place] [address] Guevara [address] [place] [phone] 09/19/2023 10:00 AM CDT Appointment [facility] [address] [place] [address], [address] [place] [address] Maria Dolores Del Real, ANGLE SHEAR OPERATOR, BALLOON DIPPER [address] [place] [address] 09/19/2023 11:00 AM CDT Appointment [facility] [address] [place] [address], [address] [place] [phone] Shaggy Smith MD [address] [place] [address] [place], [place] [address]JUSTIN [place] [address] 10/13/2023 9:00 AM CDT Appointment [facility]-DIRECTOR OF TEENAGE ACTIVITIES [address] [facility], [address] [place] [phone] Maria Dolores Del Real APRN, BALLOON DIPPER [address] [place] [address] documented as of this encounter Visit Diagnoses Not on filedocumented in this encounter Care Teams Assistant Technician Relationship Specialty [place] [address] [place] [address] PCP - General Family Practice 11/03/20 documented as of this encounter
--- OUTSIDE RECORDS SUMMARY | 2023-09-08 23:11 | XMS_ITS | Encounter Summary ---
Author Organization [employer] Address [address], [place] [address] Care Team Providers Care Assistant Professor Of Forestry Name Role Phone Randal Joe MD Primary Care Provider [phone] Reason for Visit * Reason Comments Medication Questions Encounter Details Date Type Department Care Team (Late st Contact Info) Description 08/23/2023 Nurse Triage [facility] [address] [place], [place] [phone] [place] [address] [place], [place] [phone] Medication Questions Social History Tobacco Use Types [...] as of this encounter Nursing Notes * Zaynab Lange, RN - 08/23/2023 10:13 PM CDT Spoke to pt, calling with medication questions. Was prescribed macrobid for UTI. Wonders if its okay to take together with and aspirin.Advised pt about drug interactions. Pt acknowledged understanding. No further questions. Reason for Disposition Caller has medicine question only, adult not sick, AND triager answers question Protocols used: Medication Question [id number] documented in this encounter Plan of Treatment Upcoming Encounters Date Type Department Care Team (Late st Contact Info) Description 09/12/2023 3:20 PM CDT Appointment [facility]-CONCRETE BLOCK MASON [address] [place] [address], [address] [phone] Miranda Metzger DO [address] [place] [address] Dr Guevar[address] [place] [phone] 09/19/2023 10:00 AM CDT Appointment [facility] [address] [place] [phone] Maria Dolores Del Real, PHLEBOTOMY SPECIALIST, FACILITY MANAGER HISTOLOGY [address] [place] [address] [address] [place], [place] 65[address] 09/19/2023 11:00 AM CDT Appointment [facility] [address] [place] [address], [address] [phone] Shaggy Smith MD [address] [place] [address] [place] [address] [place], [place] [address] 10/13/2023 9:00 AM CDT Appointment [facility]-CONCRETE BLOCK MASON [address] [place] [address], [address] [phone] Maria Dolores Del Real, PHLEBOTOMY SPECIALIST, FACILITY MANAGER HISTOLOGY [address] [place] [address] [place] [address] documented as of this encounter Visit Diagnoses Not on filedocumented in this encounter Care Teams Assistant Professor Of Forestry Relationship Specialty [place] [address] [place] [address] PCP - General Family Practice 11/03/20 documented as of this encounter
--- OUTSIDE RECORDS SUMMARY | 2023-09-08 23:11 | XMS_ITS | Encounter Summary ---
Author Organization [employer] Address [address] [address] Care Team Providers Care Infrastructure Analyst Name Role Phone Randal Joe MD Primary Care Provider [phone] Reason for Visit * Reason Comments Hospital Discharge Follow-up Constipatio n and vomiting - positive Encounter Details Date Type Department Care Team (Late st Contact Info) Description 09/01/2023 8:30 AM CDT Office Visit [facility] [address] [facility] [address] [place] [address] Dora Gates, PAJohnC [address] [place], [place] [phone] Constipation, unspecified constipation type (Primary Dx) Social History Tobacco Use Types Packs/Day Years Used Date Smoking Tobacco: Former Cigarettes Q uit: 08/28/2017 Passive Smoke Exposure: Never Smokeless Tobacco: Never Tobacco Cessation:Counseling Given: Not Answered Alcohol Use Standard Drinks/Week Comments Not Currently [...] Sign Reading Time Taken Comments Blood Pressure 99/58 09/01/2023 8:32 AM CDT Pulse 75 09/01/2023 8:32 AM CDT Temperature - - Respiratory Rate - - Oxygen Saturation 100% 09/01/2023 8:32 AM CDT Inhaled Oxygen Concentration - - Weight 82.8 kg (182 lb 8 oz) 09/01/2023 8:32 AM CDT Height 171.5 cm (5' 7.5) 09/01/2023 8:32 AM CDT Body Mass Index 28.16 09/01/2023 8:32 AM CDT documented in this encounter Patient Instructions * Patient Instructions* Dora Gates PA-C - 09/01/2023 8:30 AM CDT Here is plan below: 1) Make sure to drink 2-3 liters of water per day and start 500mg of magnesium citrate and 2g fish oil ([employer] is good brand) before bed each night. 2) Take 2 docusate sodium tablets in AM and one dose of Miralax in the PM. 3) Continue anti nausea medication as needed also. 4) If you still are not moving your bowels daily then increase the Miralax to one dose in the AM and the PM. 5) Follow up with OB as planned. Call with any questions or concerns. Thanks, Dora Gates, PAC. documented in this encounter Progress Notes * Dora Gtaes PA-C - 09/01/2023 8:30 AM CDT Clinic Visit SUBJECTIVE: CC: Chief Complaint Patient presents with Hospital Discharge Follow-up Constipation and vomiting - positive History of Present Illness: Alisia is here today to f/u from the ER, she has been there 3x this past month for ongoing abdominal pain. She is also about 18 weeks (ER notes reviewed). The last ER visit on 08/29 she had LUQ pains that were sharp, stabbing, burning in her LUQ area and the labs were normal, hemoccult negative and the ultrasound of her abdomen which showed a slightly complexovarian cyst in the L side, likely hemorrhagic (1.2cm) and a single live intrauterine gestation. Had a normal MRI of her abdomen the first ER visit on 08/18. They gave her Sulcralfate 1g qid x 5 days to try also. The initial visit on 08/21 they treated her for constipation. She just started the Sucralfate 1g, first dose today. Just started the Miralax up again. She did get an enema at the hospital also which helped. Discussed d/c the sucralfate since that can cause constipation and we discussed aregimen to try to help today and got her in to see OB today also. OBJECTIVE: Vital Signs: BP 99/58 (BP Location: Left Arm, BP Cuff Size: Regular) Pulse 75 Ht 5' 7.5 (1.715m) Wt 182 lb 8 oz (82.8 kg) LMP 04/30/2023 (Exact Date) SpO2 100% BMI 28.16 kg/m?? General: Crying, stressed out. Psych: Calmed down after we talked and brought her over to Ob. ASSESSMENT: Encounter Diagnosis Name Primary? Constipation, unspecified constipation type Yes PLAN: Alisia was seen today for hospital discharge follow-up. Diagnoses and all orders for this visit: Constipation, unspecified constipation type I recommended plan below and discussed with Dr. Lopez that she can change any recommendations if she doesn't agree since pt is . HRK Here is plan below: 1) Make sure to drink 2-3 liters of water per day and start 500mg of magnesium citrate and 2g fish oil ([employer] is good brand) before bed each night. 2) Take 2 docusate sodium tablets in AM and one dose of Miralax in the PM. 3) Continue anti nausea medication as needed also. 4) If you still are not moving your bowels daily then increase the Miralax to one dose in the AM and the PM. 5) Follow up with OB as planned. Call with any questions or concerns. Thanks, Dora Gates, PAC. documented in this encounter Plan of Treatment Upcoming Encounters Date Type Department Care Team (Late st Contact Info) Description 09/12/2023 3:20 PM CDT Appointment [facility]-PREDICTIVE MAINTENANCE TECHNICIAN [address] [place] [address], [address] [phone] [place] [address] [place] [address] [address] 09/19/2023 10:00 AM CDT Appointment [facility] [address] [place] [phone] Maria Dolores Del Real APRN, DATA ANALYTICS SPECIALIST [address] [place] [address] Dr Guevar[address] [place] [phone] 09/19/2023 11:00 AM CDT Appointment [facility] [address] [place] [address], [facility] [address] [place] [phone] Shaggy Smith MD [address] [place] [address] 10/13/2023 9:00 AM CDT Appointment [facility]-PREDICTIVE MAINTENANCE TECHNICIAN [address] [place] [address] [phone] Maria Dolores Del Real APRN, DATA ANALYTICS SPECIALIST [phone] [place] [address] [address] documented as of this encounter Visit Diagnoses Diagnosis Constipation, unspecified constipation type- Primary documented in this encounter Care Teams Infrastructure Analyst Relationship Specialty [place] [address] [place] [address] PCP - General Family Practice 11/03/20 documented as of this encounter
--- OUTSIDE RECORDS SUMMARY | 2023-09-08 23:11 | XMS_ITS | Encounter Summary ---
Author Organization [employer] Address [address], [place] [address] Care Team Providers Care Box Truck Driver Name Role Phone Randal Joe MD Primary Care Provider [phone] Reason for Referral * Consult/Transfer Care (Routine) - New Request Specialty Diagnoses / Procedures Referred By Contac t Referred To Contact Diagnoses Anxiety in in second trimester, antepartum (HRC) [place] [address] [place] [address] Referral ID Status Reason Start Date Expiration Date V isits Requested Visits Authorized [id number] New Request 09/02/2023 12/01/2024 1 1 Scheduling Instructions Your clinician has recommended an appointment with Behavioral Health. You may call [phone] to schedule your appointment. This recommended service/s may not be covered by your health plan (health insurance). To find out your specific benefit coverage, please call the number on your insurance card.?? Please note that in order to maintain access for all patients, Behavioral Health does have a late cancellation policy. In order to avoid being restricted from scheduling future appointments in Behavioral Health you will need to cancel at least 24 hours in advance. We request you that you arrive 30 minutes before your first appointment to complete paperwork. Question Answer Appointment Urgency? Non-Urgent Reason for request? severe anxiety Requested Services? Therapy/Counseling Pt aware and agrees to this order: Confirmed with patient Patient has received or is currently receiving outside behavioral health services? No Reason for Visit * Reason Comments Follow-up Follow up ER 08/31 vi sit Encounter Details Date Type Department Care Team (Latest Contact Info) Description 09/02/2023 1:00 PM CDT Routine [facility] [address] Obstetrics/Gynecolo [address] [place] [address] [place] [address] [place] [address] Follow-up (Follow up ER 08/31 visit) Social History Tobacco Use Types Packs/Day Years [...] Sign Reading Time Taken Comments Blood Pressure 103/46 09/02/2023 12:58 PM CDT Pulse 75 09/02/2023 12:58 PM CDT Temperature 36.8 ??C (98.2 ??F) 09/02/2023 1 2:58 PM CDT Respiratory Rate - - Oxygen Saturation - - Inhaled Oxygen Concentration - - Weight 83.4 kg (183 lb 12.8 oz) 024 12:58 PM CDT Height - - Body Mass Index 28.36 09/01/2023 8:32 AM CDT documented in this encounter Progress Notes * Michaela Lopez MD - 09/02/2023 1:00 PM CDT [facility] Obstetrics and Gynecology New Patient Visit Alisia Velasquez [id number] Reason for visit: ED follow up for pain, anxiety, constipation HPI: Alisia Velasquez is a 38 y.o. who presents to [facility] for the above. She was seen emergently in clinic yesterday by family medicine, and ob, for nausea, pain, fears/concerns about baby, and constipation. She was given multiple prescriptions for nausea, constipation, and advised for how to treat her conditions. That night, she was trying to have a bowel movement, and her belly got tight, and she and her partner became frightened, and returned to the ED. Today, she was able to pass a small BM. She reports many fears. Discussed that she seems to have several significant fixed fears (baby dying from her missing vitamin doses, bowel obstruction, baby being frightened inside, etc), and that she might benefit from treating the anxiety, to help her feel better. She is very open to treating anxiety, and states that she was on Prozac when she was a teen,and that she felt similarly then, and that it was very helpful. She also accepts referral for therapy. OBHx: OB History Para Term AB Living 3 0 0 0 2 0 SAB IAB Ectopic Multiple Live Births 1 1 0 0 0 Obstetric Comments 12/2022- SAB/D&C Ad Operations Coordinator Hx: 06/24/2023 11:33 AM MENSTRUAL TRACKING Period Pattern Regular Menses: NA, LMP Patient's last menstrual period was 04/30/2023 (exact date). STI H/o: none The medical, surgical, social and family histories were reviewed and upated. Meds: acetaminophen (TYLENOL) 325 MG tablet, Take 1-2 Tablets (325-650 mg) by mouth., , Disp: , Rfl: BABY ASPIRIN OR, , Note (09/02/2023): hs, Disp: , Rfl: Docusate Sodium (COLACE OR), , , Disp: , Rfl: famotidine (PEPCID) 20 MG tablet, Take 1 Tablet (20 mg) by mouth., , Disp: , Rfl: FLUoxetine (PROZAC) 20 MG capsule, Take 1 Capsule (20 mg) by mouth daily., , Disp: 90 Capsule, Rfl:3 glycerin pediatric suppository, Insert 1 Suppository rectally., Note (09/02/2023): Given at ER 09/01/23, Disp: , Rfl: metoclopramide (REGLAN) 10 MG tablet, Take 1 Tablet (10 mg) by mouth 4 times daily before meals andat bedtime., , Disp: 60 Tablet, Rfl: 1 ondansetron (ZOFRAN-ODT) 4 MG disintegrating tablet, Take 1 Tablet (4 mg) by mouth every 8 hours asneeded for Nausea., , Disp: 30 Tablet, Rfl: 1 Polyethylene Glycol 3350 (MIRALAX OR), , , Disp: , Rfl: vitamin-ferrous fumarate-folic acid (PRENATALPLUS) 27-1 MG tablet, Take 1 Tablet by mouth daily., , Disp: , Rfl: promethazine (PHENERGAN) 12.5 MG tablet, Take 1-2 Tablets (12.5-25 mg) by mouth every 6 hours as needed for Nausea., , Disp: 30 Tablet, Rfl: 2 sucralfate (CARAFATE) 1 g tablet, Take 1 Tablet (1 g) by mouth 4 times a day. (Patient not taking: Reported on 09/01/2023), , Disp: , Rfl: No current facility-administered medications on file as of 09/02/2023. Review of Systems Complete Review of Systems is negative, unless noted in HPI Exam: BP 103/46 (BP Location: Left Arm, BP Cuff Size: Large) Pulse 75 Temp 36.8 ??C (98.2 ??F) (Oral) Wt 183 lb 12.8 oz (83.4 kg) LMP 04/30/2023 (Exact Date) Gen: pleasant female, A&Ox3, NAD, responds to questions appropriately CV: Resp: Abd: soft, non-distended, non-tender. SSE: Normal external genitalia, normal vaginal mucosa. Cervix SVE: No CMT, no adnexal tenderness or fullness appreciated. Labs: UA/UC Imaging: none Assessment/Plan: Alisia Velasquez is a 38 y.o. 17w6d Anxiety -Prozac -referral to mental healthy/therapy Constipation -bowel regimen in place Hematuria in ED -UA/UC today Michaela Lopez MD 09/02/2023, 4:17 PM documented in this encounter Plan of Treatment Upcoming Encounters Date Type Department Care Team (Late st Contact Info) Description 09/12/2023 3:20 PM CDT Appointment [facility]-CERNER ANALYST [address] [place] [address] [phone] [place] [address] [place] [address] [phone] 09/19/2023 10:00 AM CDT Appointment [facility] [address] [place] [address] [phone] Maria Dolores Del Real APRN, LICENSED PRACTICAL VOCATIONAL NURSE [address] [place] [address] [phone] 09/19/2023 11:00 AM CDT Appointment [facility] [address] [place] [address], [address] [place] [address] [phone] Shaggy Smith MD [address] [place] [address] [phone] 10/13/2023 9:00 AM CDT Appointment [facility]-CERNER ANALYST [address] [place] [address] [phone] Maria Dolores Del Real APRN, LICENSED PRACTICAL VOCATIONAL NURSE [address] [place] [address] Dr Guevara [address] [place] [address] [phone] Scheduled Referrals Name Type Priority Associated Diagnoses Orde r Schedule Behavioral Health Referral Routine Anxiety in in second trimester, antepartum (HRC) Ordered: 09/02/2023 documented as of this encounter Results * (ABNORMAL) Urine Culture (09/02/2023 1:48 PM CDT) Urine Culture Growth(A) 09/04/2023 7:45 AM CDT [facility] Urine Culture <10,000 CFU/mL Mixed Bacterial Growth 09/04/2023 7:45 AM CDT [facility] Comment: Mixed Bacterial Growth indicates the specimen is likely contaminated at collection with urogenital and/or fecal nicole. The presence of organisms at <10,000 cfu/ml in culture, UTI unlikely. Urine URINE SPECIMEN COLLECTION, CLEAN CATCH / Unknown Non-blood Collection / Unknown 09/02/2023 1:48 PM CDT 09/02/2023 1:48 PM CDT Michaela Lopez MD LAB_1 [place] [address], [facility] * (ABNORMAL) Urinalysis Routine, Micro/Culture if Pos: Clean Catch (09/02/2023 1:48 PM CDT) Urine Culture Comment Urinalysis results do not meet criteria for urine culture reflex. 09/02/2023 1:50 PM CDT [facility] Urine Color Yellow 09/02/2023 1:50 PM CDT [facility] Urine Clarity Clear Clear 09/02/2023 1:50 PM T [facility] Specific [place], Urine >=1.030(A) 1.005 - 1.030 09/02/2023 1:50 PM T [facility] PH Urine 6.0 5.0 - 8.0 09/02/2023 1:50 PM T [facility] Protein, Urine Qual (mg/dL) Negative Neg/Trace 09/02/2023 1:50 PM T [facility] Glucose Urine Qual (mg/dL) Negative Negative 09/02/2023 1:50 PM CDT [facility] Ketones, Urine (mg/dL) Negative Negative 09/02/2023 1:50 PM T [facility] Urobilinogen, Urine (EU/dL) 1.0 <2.0 09/02/2023 1:50 PM T [facility] Bilirubin Urine Negative Negative 09/02/2023 1:50 PM CDT [facility] Blood, Urine Negative Neg/Trace 09/02/2023 1:50 PM CDT [facility] Nitrite Urine Negative Negative 09/02/2023 1:50 PM CDT [facility] Leukocyte Est. Negative Negative 09/02/2023 1:50 PM CDT [facility] Urine Source Clean Catch 09/02/2023 1:50 PM CDT [facility] Urine URINE SPECIMEN COLLECTION, CLEAN CATCH / Unknown Non-blood Collection / Unknown 09/02/2023 1:48 PM CDT 09/02/2023 1:48 PM CDT Michaela Lopez MD LAB_1 [facility] [address] [place] [phone] documented in this encounter Visit Diagnoses Diagnosis Anxiety in in second trimester, antepartum (HRC)- Primary documented in this encounter Care Teams Box Truck Driver Relationship Specialty [place] [address] [place] [address] PCP - General Family Practice 11/03/20 documented as of this encounter
--- OUTSIDE RECORDS SUMMARY | 2023-09-08 23:11 | XMS_ITS | Encounter Summary ---
Author Organization [employer] Address [address] [address] Care Team Providers Care Frame Coverer Name Role Phone Randal Joe MD Primary Care Provider [phone] Reason for Visit * Reason Comments MEDICATION, NOS Encounter Details Date Type Department Care Team (Late st Contact Info) Description 08/19/2023 Telephone [facility]-CYTOGENETICIST [address] [facility], [facility] [address] [place] [address] Maria Dolores Del Real, LACQUER DIPPING MACHINE OPERATOR, LAST SCOURER [address] Ismael [address] [place] [address] MEDICATION, NOS Social History Tobacco Use Types Packs/Day Years [...] of this encounter Nursing Notes * Carin Root RN - 08/19/2023 1:34 PM CDT Also asking: if there are any restrictions on sunscreen. Per OB General Information Patient may likely burn easier when .- Use a broad-spectrum sunscreen when outdoors to protect against UVA and UVB rays. Use sunscreen with SPF of 30 or greater. Any restrictions on going into a chlorinated swimming pool. Advised no, this may feel good because it is low impact and the added relief on joints * Carin Root RN - 08/19/2023 1:31 PM CDT Medications with Triage Reference SYMPTOMS: acid stomach. Antacid use during : Liquids are best to cool the esophagus-one hour before meals or 2 hours after, and at bedtime. Riopan, Digel, Maalox, Tums, Mylanta are OK to use in all 3 trimesters. OK to use Aciphex, Pepcid (Famotidine), Prevacid (Lansoprazole), Nexium. Prilosec OK in 2nd and 3rd trimesters only. Call if symptoms worsen on trial of antacids. Advised to call back if any of the following occur: symptoms worsen, any other questions or concerns. Patient/Caller agrees with plan and denies additional questions. Status: Estimated date of confinement is Estimated Date of Delivery: 02/04/24. documented in this encounter Plan of Treatment Upcoming Encounters Date Type Department Care Team (Late st Contact Info) Description 09/12/2023 3:20 PM CDT Appointment [facility]-CYTOGENETICIST [address] [facility], [address] [place] [phone] [place] [address] [address] [place] [address] 09/19/2023 10:00 AM CDT Appointment [facility] [address] [facility], [facility] [address] [place] [phone] Maria Dolores Del Real, LACQUER DIPPING MACHINE OPERATOR, LAST SCOURER [address] Guevara [address] [place], [place] [phone] 09/19/2023 11:00 AM CDT Appointment [facility] [address] [place] [address], [address] [place] [phone] Shaggy Smith MD [address] [place] [address] [address] [place], [place] [phone] 10/13/2023 9:00 AM CDT Appointment [facility]-CYTOGENETICIST [address] [facility] [address] [place] [phone] Maria Dolores Del Real, LACQUER DIPPING MACHINE OPERATOR, LAST SCOURER [address] Guevara [address] [place] [address] [phone] documented as of this encounter Visit Diagnoses Not on filedocumented in this encounter Care Teams Frame Coverer Relationship Specialty [place] [address] [place] [address] PCP - General Family Practice 11/03/20 documented as of this encounter
--- OUTSIDE RECORDS SUMMARY | 2023-09-08 23:11 | XMS_ITS | Encounter Summary ---
Author Organization [employer] Address [address] [address] Care Team Providers Care Sole Cementer Name Role Phone Randal Joe MD Primary Care Provider [phone] Reason for Visit * Reason Comments Medication Questions Encounter Details Date Type Department Care Team (Late st Contact Info) Description 08/24/2023 Telephone [facility]-DEICER KIT ASSEMBLER [address] [facility], [address] [phone] Maria Dolores Del Real, COMBATANT DIVER OFFICER, BUTT SAWYER [address] [facility] [address] [place] [address] Medication Questions Social History Tobacco Use Types [...] Nursing Notes * Carin Root, RN - 08/25/2023 12:39 PM CDT Stool continues to be soft but still feeling constipated. Will take colace and Miralax again today to see if that helps clear her bowels. Denies diarrhea. * Miranda Freeman RN - 08/24/2023 10:01 AM CDT Pt calling 16w4d with questions about medications for constipation. Was seen in ER 08/21 for constipation, also treated for possible UTI. Wondering if ok to take both Mirilax and colace together. Advised this is ok. Also wondering if any interaction with macrobid. Micromedex used to reference, advised no interaction. Discussed drinking plenty of water, eating foods high in fiber (fruits, veggies, etc) and avoiding constipating foods. Pt verbalizes understanding and agrees with plan. No further questions. Pt agrees to call back with questions, concerns, new/worsening/persistent sx. Problem list reviewed as related to this call. documented in this encounter Plan of Treatment Upcoming Encounters Date Type Department Care Team (Late st Contact Info) Description 09/12/2023 3:20 PM CDT Appointment [facility]-DEICER KIT ASSEMBLER [address] [place] [address], [address] [phone] [place] [address] Guevara [address] [place] [address] [phone] 09/19/2023 10:00 AM CDT Appointment [facility] [address] [facility], [facility] [address] [place] [phone] Maria Dolores Del Real, COMBATANT DIVER OFFICER, BUTT SAWYER [address] [address] 09/19/2023 11:00 AM CDT Appointment [facility] [address] [place] [address], [address] [place] [phone] Shaggy Smith MD [address] [place], [place] [address] [address] 10/13/2023 9:00 AM CDT Appointment [facility]-DEICER KIT ASSEMBLER [address] [facility], [facility] [address] [place] [phone] Maria Dolores Del Real APRN, BUTT SAWYER [address] [address] documented as of this encounter Visit Diagnoses Not on filedocumented in this encounter Care Teams Sole Cementer Relationship Specialty [place] [address] [place] [address] PCP - General Family Practice 11/03/20 documented as of this encounter
--- OUTSIDE RECORDS SUMMARY | 2023-09-08 23:11 | XMS_ITS | Encounter Summary ---
Author Organization [employer] Address [address], [place] [address] Care Team Providers Care Bias Machine Operator Helper Name Role Phone Randal Joe MD Primary Care Provider [phone] Reason for Visit * Reason Comments Forms Encounter Details Date Type Department Care Team (Late st Contact Info) Description 08/29/2023 Telephone [facility]-MEMBER SERVICES COORDINATOR [address] [phone] Maria Dolores Del Real, SUPERVISOR ELECTRONIC COILS, POSTAL SERVICE WINDOW CLERK [address] [facility] [address] [place] [address] Forms Social History Tobacco Use Types Packs/Day Years [...] as of this encounter Nursing Notes * Dyan Townsend - 08/29/2023 8:44 AM CDT Patient sent FMLA forms for additional time off, separate from the previously approved intermittentleave of up to 5 hours per week. Per Maria Dolores Del Real, will not be approving any additional time off. Still supporting intermittent leave as mentioned above. Patient verbalized understanding. documented in this encounter Plan of Treatment Upcoming Encounters Date Type Department Care Team (Late st Contact Info) Description 09/12/2023 3:20 PM CDT Appointment [facility]-MEMBER SERVICES COORDINATOR [address] [place] [phone] Miranda Metzger DO [address] [place] [address] 770[address] 09/19/2023 10:00 AM CDT Appointment [facility] [address] [place] [address] [phone] Maria Dolores Del Real APRN, POSTAL SERVICE WINDOW CLERK [address] [place] [address] [place] [address] 09/19/2023 11:00 AM CDT Appointment [facility] [address] [place] [phone] Shaggy Smith MD [address] [place], [place] [address], [place] [address] 10/13/2023 9:00 AM CDT Appointment [facility]-MEMBER SERVICES COORDINATOR [address] [place] [phone] Maria Dolores Del Real APRN, POSTAL SERVICE WINDOW CLERK [address] [place] [address] Dr Guevara [address] [place] [address] documented as of this encounter Visit Diagnoses Not on filedocumented in this encounter Care Teams Bias Machine Operator Helper Relationship Specialty [place] [address] [place] [address] PCP - General Family Practice 11/03/20 documented as of this encounter
--- OUTSIDE RECORDS SUMMARY | 2023-09-08 23:11 | XMS_ITS | Encounter Summary ---
Author Organization [employer] Address [address] [address] Care Team Providers Care Infant Lead Teacher Name Role Phone Randal Joe MD Primary Care Provider [phone] Reason for Visit * Reason Comments Concerns constipation Encounter Details Date Type Department Care Team (Late st Contact Info) Description 08/22/2023 Nurse Triage [facility]-AVIATION OPERATIONS SPECIALIST [address] [facility], [address] [place] [address] Maria Dolores Del Real, SHELLFISH DREDGE OPERATOR, DIESEL ENGINE INSPECTOR [address] Ismael [address] [place] [address] Concerns (constipation) Social History Tobacco Use Types Packs/Day Years [...] as of this encounter Nursing Notes * Fidelina Mora RN - 08/22/2023 9:00 AM CDT Reason for Disposition MILD constipation Protocols used: - Zoezgafvsjms-ELPIB-KV 16 weeks, pt calling today with concerns of constipation. States was using Miralax daily up until afew weeks ago as thought stools were becoming too loose. Does have daily BM's. Resumed Miralax two days ago after passing large hard stool. Did not move bowels yesterday. Today has been straining as feels stool at anal opening but unable to pass. Encouraged pt to continue Miralax daily. Care advice reviewed. Per protocol, pt advised to use colace, one tablet daily as needed. Did advise pt okay to use OTC fleets enema x 1 this am as pt states last time I couldn't pass stool I had to go to the ED. Pt will return call if continued concerns. Pt verbalizes her understanding and has no further questions. documented in this encounter Plan of Treatment Upcoming Encounters Date Type Department Care Team (Late st Contact Info) Description 09/12/2023 3:20 PM CDT Appointment [facility]-AVIATION OPERATIONS SPECIALIST [address] [facility] [address] [place] [phone] Miranda Metzger, [address] Guevara [address] [place] [address] 09/19/2023 10:00 AM CDT Appointment [facility] [address] [facility] [address] [place] [phone] Maria Dolores Del Real APRN, DIESEL ENGINE INSPECTOR [address] Guevara [address] [place] [address] 09/19/2023 11:00 AM CDT Appointment [facility] [address] [facility], [address] [place] [address] Shaggy Smith MD [address] [place] [address] [address] [facility] [place], [place] [address] 10/13/2023 9:00 AM CDT Appointment [facility]-AVIATION OPERATIONS SPECIALIST [address] [facility], [address] [place] [phone] Maria Dolores Del Real, SHELLFISH DREDGE OPERATOR, DIESEL ENGINE INSPECTOR [address] Guevara [address] [place], [place] [phone] documented as of this encounter Visit Diagnoses Not on filedocumented in this encounter Care Teams Infant Lead Teacher Relationship Specialty [place] [address] [place] [address] PCP - General Family Practice 11/03/20 documented as of this encounter
--- OUTSIDE RECORDS SUMMARY | 2023-09-08 23:11 | XMS_ITS | Encounter Summary ---
Author Organization [employer] Address [address], [place] [address] Care Team Providers Care Contract Administration Manager Name Role Phone Randal Joe MD Primary Care Provider [phone] Reason for Visit * Reason Comments Constipation Encounter Details Date Type Department Care Team (Late st Contact Info) Description 09/08/2023 Nurse Triage [facility] [address] [place], [place] [phone] [place] [address] [place], [place] [phone] Constipation Social History Tobacco Use Types Packs/Day [...] Notes * Gunjan Gar RN - 09/08/2023 9:06 PM CDT Spoke to pt. 18w5d. Reports that she has not had a regular BM in about a week. Did have a small BM 2 days ago. Not passing gas, but liquid stool is leaking. Abdomen pain on the left mid side, currently 5-6/10. Has been taking Colace and Mirilax. Vomited yesterday, denies vomiting today. Denies vaginal bleeding. Problem list reviewed as related to this call. Reason for Disposition Leaking stool Protocols used: - [id number] documented in this encounter Plan of Treatment Upcoming Encounters Date Type Department Care Team (Late st Contact Info) Description 09/12/2023 3:20 PM CDT Appointment [facility]-WHITE SHOE RAGGER [address] [place] [address], [address] [phone] [place] [address] [place] [address] [id number] 09/19/2023 10:00 AM CDT Appointment [facility] [address] [place] [phone] Maria Doloers Del Real, MAILROOM PERSONNEL, DIRECTOR OF CURRICULUM AND INSTRUCTION [id number] [place] [address] Dr Guevara [address] [place] [address] 09/19/2023 11:00 AM CDT Appointment [facility] [address] [place] [address], [address] [place] [phone] Shaggy Smith MD [address] [place], [place] [address] [address] 10/13/2023 9:00 AM CDT Appointment [facility]-WHITE SHOE RAGGER [address] [place], [place] [address], [place] [phone] Maria Dolores Del Real APRN, DIRECTOR OF CURRICULUM AND INSTRUCTION [address] [place] [address] documented as of this encounter Visit Diagnoses Not on filedocumented in this encounter Care Teams Contract Administration Manager Relationship Specialty [place] [address] [place] [address] PCP - General Family Practice 11/03/20 documented as of this encounter
--- OUTSIDE RECORDS SUMMARY | 2023-09-08 23:11 | XMS_ITS | Encounter Summary ---
Author Organization [employer] Address [address], [place] [address] Care Team Providers Care Wreath And Garland Maker Name Role Phone Randal Joe MD Primary Care Provider [phone] Reason for Visit * Reason Comments Forms Encounter Details Date Type Department Care Team (Late st Contact Info) Description 09/06/2023 Telephone [place] [address] Obstetrics/Gynecology [address] [place] [phone] [place] [address] [place], [place] [phone] Forms Social History Tobacco Use Types Packs/Day [...] as of this encounter Nursing Notes * Alison Browning CMA - 09/06/2023 4:52 PM CDT Spoke with pt to let her know pt out of office and will be addressed on Tuesday when back in office. * Minoo Brumfield - 09/06/2023 4:15 PM CDT Patient calling back stating her work received FMLA forms, but the 3rd page was not completed. It needs to be noted weather or not this is intermittent or prolonged leave. Patient looking for intermittent leave to cover in case of illness or multiple appointments. Paperwork was filled out and faxedlast week, but again 3rd page indicating intermittent leave was not filled out. Needs filled out and faxed back to work. 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 documented in this encounter Plan of Treatment Upcoming Encounters Date Type Department Care Team (Late st Contact Info) Description 09/12/2023 3:20 PM CDT Appointment [facility]ELEVATOR BUILDER [address] [facility], [facility] [address] [place] [phone] [place] [address] Guevara [address] [place] [address] 09/19/2023 10:00 AM CDT Appointment [facility] [address] [facility], [facility] [address] [place] [phone] Maria Dolores Del Real APRN, SOLUTIONS SALES EXECUTIVE [address] Guevara [address] [place] [phone] 09/19/2023 11:00 AM CDT Appointment [facility] [address] [facility], [address] [place] [phone] [place] [address] [facility] [address] [place] [address] 10/13/2023 9:00 AM CDT Appointment [facility]-ELEVATOR BUILDER [address] [facility], [address] [place] [phone] Maria Dolores Del Real APRN, SOLUTIONS SALES EXECUTIVE [address] G[address] [place], [place] [phone] documented as of this encounter Visit Diagnoses Not on filedocumented in this encounter Care Teams Wreath And Garland Maker Relationship Specialty [place] [address] [place] [address] PCP - General Family Practice 11/03/20 documented as of this encounter
--- OUTSIDE RECORDS SUMMARY | 2023-09-08 23:11 | XMS_ITS | Clinical Summary ---
[facility] Organization [facility] Address [address] [place] [address] Care Team Providers Care Java Lead Architect Name Role Phone Randal Joe MD Primary Care Provider [phone] Source Comments You are receiving this document as you are listed as the primary care provider,follow-up provider, or the patient has been referred to you for consultation.This is in compliance with the Medicare and[facility] EHR Incentive Program,which states Providers who transition their patient to another setting of careor provider of care or refers their patient to another provider of care shouldprovide summary care record for each transition of care or referral. [employer] [facility] CenterEverlasting Values Organized Through [employer] Allergies Active Allergy Reactions Criticality Noted Date Comments Amoxicillin Itching 08/29/2019 Swelling Iodinated Contrast Media Anaphylaxis High 01/26/2021 Medications Medication Sig Dispensed Refills Start Date End Date Status vitamin-ferrous fumarate-folic acid (PRENATALPLUS) 27-1 MG tablet Take 1 Tablet by mouth daily. Active acetaminophen (TYLENOL) 325 MG tablet Take 1-2 Tablets (325-650 mg) by mouth. 12/27/2022 Active promethazine (PHENERGAN) 12.5 MG tablet Take 1-2 Tablets (12.5-25 mg) by mouth every 6 hours as needed for Nausea. 30 Tablet 2 07/07/2023 Active BABY ASPIRIN OR 08/09/2023 Active Polyethylene Glycol 3350 (MIRALAX OR) Active Docusate Sodium (COLACE OR) Active sucralfate (CARAFATE) 1 g tablet Take 1 Tablet (1 g) by mouth 4 times a day. Active metoclopramide (REGLAN) 10 MG tabletIndications:Olivera pervision of high risk in second trimester Take 1 Tablet (10 mg) by mouth 4 times daily before meals and at bedtime. 60 Tablet 1 09/01/2023 Active ondansetron (ZOFRAN-ODT) 4 MG disintegrating tabletIndications:Olivera pervision of high risk in second trimester Take 1 Tablet (4 mg) by mouth every 8 hours as needed for Nausea. 30 Tablet 1 09/01/2023 Active famotidine (PEPCID) 20 MG tablet Take 1 Tablet (20 mg) by mouth. 09/01/2023 4 Active glycerin pediatric suppository Insert 1 Suppository rectally. 09/01/2023 Active FLUoxetine (PROZAC) 20 MG capsule Take 1 Capsule (20 mg) by mouth daily. 90 Capsule 3 09/02/2023 5 Active famotidine (PEPCID) 10 MG tablet Take 1 Tablet (10 mg) by mouth. 07/18/2023 4 nitrofurantoin monohydrate macrocrystal (MACROBID) 100 MG capsule Take 1 Capsule (100 mg) by mouth. 08/22/2023 4 Active Problems Problem Noted Date Diagnosed Date Supervision of high risk in second [facility] 07/07/2023 Nausea/vomiting in 07/07/2023 Prolonged Q-T interval on ECG 05/09/2021 Chronic migraine without aur a without status migrainosus, not intractable 07/25/2015 Seronegative arthritis 05/17/2014 Vitamin D deficiency 05/17/2014 Overview: Problem list name updated by automated process. Provider to review Anxiety 07/17/2012 Mild major depression 06/03/2010 Panic disorder without agoraphobia 06/03/2005 Overview: LW Onset: [id number] ; Panic Disorder w/o Agoraphobia Estimated Date of Delivery Comme nts Yes 02/04/2024 Based on last me nstrual period of 04/30/2023 (Exact Date) Resolved Problems Problem Noted Date Diagnosed Date Resolved Date Primigravida of advanced mat ernal age in first trimester 07/07/2023 08/15/2023 Subchorionic hematoma in first trimester 07/07/2023 08/15/2023 Nausea, vomiting, and diarrhea 05/09/2021 07/07/2023 Encounters Date Type Department Care Team Description 09/08/2023 Nurse Triage [facility] [address] [place] [address] Randal Joe MD Constipation 09/08/2023 Nurse Triage [facility] [address] [place] [address] Randal Joe MD BOWEL PROBLEMS 09/06/2023 Telephone [place] [address] Obstetrics/Gynecol ogy [address] [place] [phone] Michaela Lopez MD Forms 09/06/2023 Nurse Triage [place] [address] Obstetrics/Gynecol ogy [address] [place] [address] Michaela Lopez MD Concerns 09/04/2023 Telephone [facility] [address] [place] [address] Randal Joe MD Medication Questions 09/02/2023 1:50 PM CDT Lab Visit [address] [phone] Anxiety in in second trimester, antepartum (HRC) 09/02/2023 1:00 PM CDT Routine [place] [address] Obstetrics/Gynecol ogy [phone] [place] [phone] Michaela Lopez MD Follow-up (Follow up ER 08/31 visit) 09/02/2023 Telephone [place] [address] Obstetrics/Gynecol ogy [address] [place] [phone] Michaela Lopez MD 09/01/2023 4:00 PM CDT Routine [place] [address] Obstetrics/Gynecol ogy [address] [place] [phone] Michaela Lopez MD Concerns 09/01/2023 8:30 AM CDT Office Visit [phone] [place] [phone] Dora Gates, PAJohnC Constipation, unspecified constipation type (Primary Dx) 08/30/2023 Nurse Triage [phone] [place] [phone] Randal Joe MD Abdominal Pain 08/29/2023 Telephone [facility]-GEOPHYSICS PROFESSOR [address] [place] [address], [address] [phone] Maria Dolores Del Real APRN, BONDED STRUCTURES REPAIRER Forms 08/28/2023 Nurse Triage [facility] Nurse Line [address] [place] [address] Randal Joe MD Constipation 08/26/2023 3:30 PM CDT Routine [facility]-GEOPHYSICS PROFESSOR [address] [place] [address], [address] [phone] Maria Dolores Del Real APRN, BONDED STRUCTURES REPAIRER CONSTIPATION 08/24/2023 Telephone [facility]-GEOPHYSICS PROFESSOR [address] [place] [address], [address] [phone] Maria Dolores Del Real MANAGER OF SUPPLY CHAIN, BONDED STRUCTURES REPAIRER Medication Questions 08/23/2023 Nurse Triage [facility] [address] [place] [address] Randal Joe MD Medication Questions 08/22/2023 Nurse Triage [facility]-GEOPHYSICS PROFESSOR [address] [place] [address], [address] [phone] Maria Dolores Del Real, MANAGER OF SUPPLY CHAIN, BONDED STRUCTURES REPAIRER Concerns (constipation) 08/19/2023 Telephone [facility]-GEOPHYSICS PROFESSOR [address] [place] [address], [address] [phone] Maria Dolores Del Real APRN, SEBASTIÁN MEDICATION, NOS 08/16/2023 Telephone [facility]-GEOPHYSICS PROFESSOR [address] [place] [address], [address] [phone] Maria Dolores Del Real APRN, BONDED STRUCTURES REPAIRER Concerns 08/15/2023 8:45 AM CDT Routine [facility]-GEOPHYSICS PROFESSOR [address] [place] [address], [address] [phone] Maria Dolores Del Real, KATELYN, BONDED STRUCTURES REPAIRER ANXIETY; Routine Visit 08/12/2023 [facility] [address] [place] [phone] Mychart, Generic Provider 08/09/2023 Telephone [facility]-GEOPHYSICS PROFESSOR [address] [place] [address], [address] [phone] Sofiya Vo MD Medication Questions 08/08/2023 Nurse Triage [facility] Nurse Line [address] [place] [address] Randal Joe MD Concerns; Stool Color Change 08/04/2023 9:00 AM CDT Lab Visit [facility] [address] [place] [address], [address] [phone] Urinary frequency 08/04/2023 8:30 AM CDT Routine [facility]GEOPHYSICS PROFESSOR [address] [place] [address], [address] [phone] Sofiya Vo MD Routine Visit 08/04/2023 Orders Only HIM DEPARTMENT Provider, MD Rick 08/04/2023 Telephone [facility]GEOPHYSICS PROFESSOR [address] [place] [address], [address] [phone] Maria Dolores Del Real APRN, BONDED STRUCTURES REPAIRER CHANGING APPOINTMENTS 08/01/2023 8:30 AM CDT Ancillary Procedure [facility] [address] [place] [address], [address] [phone] Maria Dolores Del Real APRN, BONDED STRUCTURES REPAIRER Supervision of high risk in first trimester; Primigravida of advanced maternal age in first trimester 07/30/2023 Nurse Triage [facility] [address] [place] [address] Randal Joe MD BLEEDING, DURING 07/28/2023 Telephone [facility]-GEOPHYSICS PROFESSOR [address] [place] [phone] Sofiya Vo MD Lab/Rad Request 07/27/2023 11:10 AM CDT Lab Visit [facility] [address] [place] [phone] Dysuria 07/27/2023 10:45 AM CDT Routine [facility]-GEOPHYSICS PROFESSOR [address] [place] [phone] Sofiya Vo MD Vaginal Discharge 07/27/2023 Orders Only HIM DEPARTMENT Provider, MD Rick 07/26/2023 Telephone [facility]-GEOPHYSICS PROFESSOR [address] [place] [phone] Maria Dolores Del Real APRN, BONDED STRUCTURES REPAIRER Forms 07/25/2023 Nurse Triage [facility] [address] [place] [address], [address] [phone] Maria Dolores Del Real APRN, BONDED STRUCTURES REPAIRER Concerns 07/22/2023 Telephone [facility]GEOPHYSICS PROFESSOR [address] [place] [phone] Maria Dolores Del Real APRN, SEBASTIÁN Medication Questions 07/21/2023 11:45 AM CDT Routine [facility]GEOPHYSICS PROFESSOR [address] [place] [phone] Maria Dolores Del Real APRN, BONDED STRUCTURES REPAIRER Follow-up 07/16/2023 Nurse Triage [facility] [address] [place] [address] Randal Joe MD CONSTIPATION 07/13/2023 11:55 AM CDT E-Visit [facility]-GEOPHYSICS PROFESSOR [address] [place] [phone] Maria Dolores Del Real, KATELYN, BONDED STRUCTURES REPAIRER Chief Comp: QUESTIONS, GENERAL 07/13/2023 Telephone [facility]-GEOPHYSICS PROFESSOR [address] [place] [phone] Maria Dolores Del Real, KATELYN, BONDED STRUCTURES REPAIRER Questions For The Nurse 07/13/2023 Telephone [facility]-GEOPHYSICS PROFESSOR [address] [place] [phone] Maria Dolores Del Real, KATELYN, BONDED STRUCTURES REPAIRER Appointment Questions 07/11/2023 [facility] [address] [place] [address] Mychart, Generic Provider 07/09/2023 Nurse Triage [facility] [address] [place] [address] Randal Joe MD [facility] 07/08/2023 8:30 AM CDT E-Visit [facility]-GEOPHYSICS PROFESSOR [address] [place] [address] [phone] Sofiya Vo MD Chief Comp: Forms/Letter 07/08/2023 Telephone [facility] [address] [place] [address] Randal Joe MD Concerns 07/07/2023 9:40 AM CDT Lab Visit [facility] [address] [place] [phone] Supervision of high risk in first trimester; Primigravida of advanced maternal age in first trimester 07/07/2023 8:30 AM CDT Initial [facility]-GEOPHYSICS PROFESSOR [address] [place] [address], [address] [phone] Maria Dolores Del Real APRN, BONDED STRUCTURES REPAIRER INITIAL VISIT 07/07/2023 Telephone [facility] [address] [place] [address] Randal Joe MD LAB RESULTS 07/07/2023 Telephone [facility]-GEOPHYSICS PROFESSOR [address] [place] [address] [phone] Maria Dolores Del Real APRN, BONDED STRUCTURES REPAIRER Forms 06/27/2023 Telephone [facility]-GEOPHYSICS PROFESSOR [address] [place] [address], [address] [phone] Sofiya Vo MD Concerns 06/25/2023 Nurse Triage [facility] [address] [place] [address] Randal Joe MD Concerns 06/24/2023 11:30 AM CDT Phone Visit [facility] Obstetrics/Gynecol ogy [address] [place] [address] Nurse Intake, [id number] Ob Missed menses (Primary Dx) 06/24/2023 E-Visit [facility] Obstetrics/Gynecol ogy [address] [facility] [place] [address] Mychart, Generic Provider 06/22/2023 8:00 AM CDT Ancillary Procedure [facility]-Ultras[facility] d [address] [place] [address], [address] [phone] Sofiya Vo MD Early stage of 06/22/2023 Telephone [facility]-GEOPHYSICS PROFESSOR [address] [place] [address], [address] [phone] Sofiya Vo MD Ultrasound Results 06/22/2023 Telephone [facility]-GEOPHYSICS PROFESSOR [address] [place] [address], [address] [place] [phone] Sofiya Vo MD Concerns 06/15/2023 E-Visit [facility]-GEOPHYSICS PROFESSOR [address] [place] [address], [address] [phone] Mychart, Generic Provider 06/15/2023 Telephone [facility] Obstetrics/Gynecol og [address] [facility] [place] [address] Maria Dolores Del Real, MANAGER OF SUPPLY CHAIN, BONDED STRUCTURES REPAIRER Concerns; LAB TESTS, NOS 06/13/2023 E-Visit [facility]-GEOPHYSICS PROFESSOR [address] [place] [address], [address] [phone] Mychart, Generic Provider 06/13/2023 Telephone [facility]-GEOPHYSICS PROFESSOR [address] [place] [address], [address] [phone] Sofiya Vo MD LAB RESULTS; CONSTIPATION 06/11/2023 Telephone [facility] Nurse Line [address] [place], [place] [phone] Randal Joe MD LAB RESULTS 06/10/2023 5:30 PM CDT Lab Visit [facility] [address] [place] [phone] History of miscarriage 06/08/2023 3:15 PM CDT Office Visit [facility]-GEOPHYSICS PROFESSOR [address] [place] [address], [address] [phone] Sofiya Vo MD Early stage of (Primary Dx); Routine screening for STI (sexually transmitted infection); Bradycardic baseline heart rate 06/08/2023 8:45 AM CDT Ancillary Procedure [facility]-Ultras[facility] d [address] [place] [address], [address] [phone] Sofiya Vo MD Bleeding in early from Last 3 Months Immunizations Name Administration Dates Next Due HepA-HepB ([place], 18+ yrs) 01/22/2010,07/16/19 10,05/14/2009 Influenza IIV4 (Quadrivalent) 0.5mL (17691) 12/08 Influenza, Unspecified Formulation 02/13/2021 TB Skin Test (PPD) 05/14/2009 Tdap 02/10/2017,07/11/2006 Family History Medical History Relation Name Comments Cancer Father Depression Father Diabetes Cousin Diabetes Maternal Grandmother Heart Disease Maternal Grandmother Cancer, Breast Other Great aunt Alzheimer's Paternal Grandfather Dementia Paternal Grandfather Depression Paternal Grandfather Cancer, Cervical Paternal Grandmother Cancer, Colon Paternal Grandmother Cancer, Ovary Paternal Grandmother Depression Sister Relation Name Status Comments Father Alive Mother Alive Cousin Alive Maternal Grandfather Maternal Grandmother Other Great aunt Paternal Grandfather Paternal Grandmother Sister Alive Social History Tobacco Use Types Packs/Day Years [...] 09/02/2023 1 2:58 PM CDT Respiratory Rate 16 09/03/2021 7:14 AM CDT Oxygen Saturation 100% 09/01/2023 8:32 AM CDT Inhaled Oxygen Concentration - - Weight 83.4 kg (183 lb 12.8 oz) 07/26/2 024 12:58 PM CDT Height 171.5 cm (5' 7.5) 09/01/2023 8:32 AM CDT Body Mass Index 28.36 09/01/2023 8:32 AM CDT Plan of Treatment Upcoming Encounters Date Type Department Care Team (Late st Contact Info) Description 09/12/2023 3:20 PM CDT Appointment [facility]-GEOPHYSICS PROFESSOR [address] [place] [address], [address] [phone] [place] [address] Guevara [address] [place] [phone] 09/19/2023 10:00 AM CDT Appointment [facility] [address] [place] [phone] Maria Dolores Del Real APRN, BONDED STRUCTURES REPAIRER [address] [place] [address] Dr [place], [place] [phone] 09/19/2023 11:00 AM CDT Appointment [facility] [address] [place] [address], [facility] [address] [place] [phone] Shaggy Smith MD [address] [place], [place] [address], [place] [phone] 10/13/2023 9:00 AM CDT Appointment [facility]-GEOPHYSICS PROFESSOR [address] [place] [phone] Maria Dolores Del Real APRN, BONDED STRUCTURES REPAIRER [address] [place] [phone] Health Maintenance Due Date Last Done Comments COVID-19 Vaccine ( - 2022-2 4 season) 2022 Adult Preventive Visit 11/03/2022 , 12/21/2019 Influenza (#1) 2023 02/13/2021, 12/21/2019 DTaP/Tdap/Td (3 - Tdap) 02/10/2027 02/10/19 18, 07/11/2006 Cervical Cancer Screening 03/26/20272022, 02/10/2017 (Completed) Zoster/Shingles (1 of 2) 05/14/2035 HepA Completed 01/22/2010, 07/15/2009, 05/14/2009 HepB Completed 01/22/2010, 07/15/2009, 05/14/2009 HIV Screening (Preventive Services) Completed 07/07/2023, 12/10/2010, 12/10/2010 (Completed) Hep C Screening (Preventive Services) Completed 07/07/2023 HPV Vaccine Aged Out No longer eligi ble based on patient's age to complete this topic Hib Aged Out No longer eligi ble based on patient's age to complete this topic IPV (Polio) Aged Out No longer eligi ble based on patient's age to complete this topic MCV4 Aged Out No longer eligi ble based on patient's age to complete this topic Pneumococcal Aged Out No longer eligi ble based on patient's age to complete this topic Procedures Procedure Name Priority Date/Time Associated Diagnosis Comments URINE CULTURE Routine 09/02/2023 1:48 PM CDT Anxiety in in second trimester, antepartum (HRC) URINALYSIS ROUTINE, MICRO/CULTURE IF POS Routine 09/02/2023 1:48 PM CDT Anxiety in in second trimester, antepartum (HRC) URINALYSIS ROUTINE, MICRO/CULTURE IF POS Routine 08/04/2023 9:07 AM CDT Urinary frequency ULTRASOUND SC 08/04/2023 MFM US OB FIRST TRIMESTER Routine 08/01/2023 8:59 AM CDT Supervision of high risk in first trimester Primigravida of advanced maternal age in first trimester CHLAMYDIA & GC (14 YEARS & OLDER) Routine 07/27/2023 11:24 AM CDT Routine screening for STI (sexually transmitted infection) VAGINITIS PANEL Routine 07/27/2023 11:24 AM CDT Vulvar burning URINALYSIS ROUTINE, MICRO/CULTURE IF POS Routine 07/27/2023 10:58 AM CDT Dysuria ULTRASOUND SC 07/27/2023 OB CLINIC ULTRASOUND LIMITED Routine 07/21/2023 Nausea/vomiting in CHLAMYDIA & GC (14 YEARS & OLDER) Routine 07/07/2023 10:00 AM CDT Supervision of high risk in first trimester TREPONEMA SCREEN Routine 07/07/2023 9:48 AM CDT Supervision of high risk in first trimester URINE CULTURE Routine 07/07/2023 9:48 AM CDT Supervision of high risk in first trimester RUBELLA IMMUNE STATUS, IGG Routine 07/07/2023 9:48 AM CDT Supervision of high risk in first trimester HIV 1/2 AG/AB 4TH GEN Routine 07/07/2023 9:48 AM CDT Supervision of high risk in first trimester HEPATITIS C ANTIBODY, WITH REFLEX Routine 07/07/2023 9:48 AM CDT Supervision of high risk in first trimester HBSAG (HEPATITIS B SURFACE AG) Routine 07/07/2023 9:48 AM CDT Supervision of high risk in first trimester PANORAMA NIPT Routine 07/07/2023 9:48 AM CDT Supervision of high risk in first trimester Primigravida of advanced maternal age in first trimester RAPID DRUG PANEL, URINE (WITH CONFIRMATION) Routine 07/07/2023 9:48 AM CDT Supervision of high risk in first trimester HGB A1C Routine 07/07/2023 9:48 AM CDT Supervision of high risk in first trimester COMPLETE BLOOD COUNT-NO DIFF Routine 07/07/2023 9:48 AM CDT Supervision of high risk in first trimester BLOOD TYPE Routine 07/07/2023 9:48 AM CDT Supervision of high risk in first trimester ANTIBODY SCREEN Routine 07/07/2023 9:48 AM CDT Supervision of high risk in first trimester OB CLINIC ULTRASOUND LIMITED Routine 07/07/2023 Supervision of high risk in first trimester Primigravida of advanced maternal age in first trimester Subchorionic hematoma in first trimester, single or unspecified fetus US OB < 14 WEEKS W EV SINGLE FOLLOW UP GROWTH Routine 06/22/2023 8:16 AM CDT Early stage of HCG, QUANTITATIVE, SERUM STAT 06/10/2023 5:28 PM CDT History of miscarriage TRICHOMONAS VAGINALIS, MOLECULAR DETECTION, ENDOCERVIX/VAGINA (14 YEARS AND OLDER) Routine 06/08/2023 3:29 PM CDT Routine screening for STI (sexually transmitted infection) US OB <14 WEEKS W EV SINGLE Routine 06/08/2023 9:18 AM CDT Bleeding in early PAP TEST Routine 03/26/2022 11:10 AM BUDGET COORDINATOR Screening for malignant neoplasm of cervix from Last 3 Months or Most Recently Relevant to Health Maintenance Results * (ABNORMAL) Urine Culture (09/02/2023 1:48 PM CDT) Only the most recent of2 resultswithin the time period is included. Urine Culture Growth(A) 09/04/2023 7:45 AM CDT [facility] Urine Culture <10,000 CFU/mL Mixed Bacterial Growth 09/04/2023 7:45 AM CDT [facility] Comment: Mixed Bacterial Growth indicates the specimen is likely contaminated at collection with urogenital and/or fecal nicole. The presence of organisms at <10,000 cfu/ml in culture, UTI unlikely. Urine URINE SPECIMEN COLLECTION, CLEAN CATCH / Unknown Non-blood Collection / Unknown 09/02/2023 1:48 PM CDT 09/02/2023 1:48 PM CDT Michaela Lopez MD LAB_[address] [address], [facility] * (ABNORMAL) Urinalysis Routine, Micro/Culture if Pos: Clean Catch (09/02/2023 1:48 PM CDT) Only the most recent of3 resultswithin the time period is included. Urine Culture Comment Urinalysis results do not meet criteria for urine culture reflex. 09/02/2023 1:50 PM [facility] Urine Color Yellow 09/02/2023 1:50 PM [facility] Urine Clarity Clear Clear 09/02/2023 1:50 PM [facility] Specific Vincent, Urine >=1.030(A) 1.005 - 1.030 09/02/2023 1:50 PM [facility] Urine 6.0 5.0 - 8.0 09/02/2023 1:50 PM [facility] Protein, Urine Qual (mg/dL) Negative Neg/Trace 09/02/2023 1:50 PM [facility] Glucose Urine Qual (mg/dL) Negative Negative 09/02/2023 1:50 PM [facility] Ketones, Urine (mg/dL) Negative Negative 09/02/2023 1:50 PM [facility] Urobilinogen, Urine (EU/dL) 1.0 <2.0 09/02/2023 1:50 PM [facility] Bilirubin Urine Negative Negative 09/02/2023 1:50 PM [facility] Blood, Urine Negative Neg/Trace 09/02/2023 1:50 PM [facility] Nitrite Urine Negative Negative 09/02/2023 1:50 PM [facility] Leukocyte Est. Negative Negative 09/02/2023 1:50 PM CDT [facility] Urine Source Clean Catch 09/02/2023 1:50 PM CDT [facility] Urine URINE SPECIMEN COLLECTION, CLEAN CATCH / Unknown Non-blood Collection / Unknown 09/02/2023 1:48 PM CDT 09/02/2023 1:48 PM CDT Michaela Lopez MD LAB_1 [facility] [address] [place] [address], [facility] * ULTRASOUND SC (08/04/2023) Only the most recent of2 resultswithin the time period is included. Anatomical Region Laterality Modality Other Interface Provider MD DUMMY/OTHER/AR * MFM US OB First Trimester Ultrasound (08/01/2023 8:59 AM CDT) Anatomical Region Laterality Modality Pelvis Ultrasound Study GA Study Date Study JENNIFER Working JENNIFER (Source) Feta l Weight (Method) 13w4d 08/01/2023 02/02/2024 02/04/2024 (Las t Menstrual Period) Result Name Value Comments GA by US Calc 95 days 95 FHR 155 bpm Gest Sac Yolk Sac CRL 7.45 cm 95 NT BPD OFD HC AC FL HL CI FL/BPD FL/AC HC/AC UAR - PSV UAR - S/D Ratio UAR - RI UAR - PI MCA - PSV MCA - S/D Ratio MCA - PI Lateral Ventricle CER Cisterna Magna Max Vertical Pocket LUCÍA Foot Narrative 08/01/2023 9:48 AM CDT Table formatting from the original result was not included. Images from the original result were not included. ?? [facility] [address] [facility], [address] [place] [address] Dept Dept Patient Name: Alisia Velasquez ??Referred By: Attending: Maria Dolores Del Real APRN, BONDED STRUCTURES REPAIRER Shaggy Smith MD Patient ??Research Environmental Scientist: Dorothy Moran RDMS , Age: 4 1985, 38 y.o. ??GA Prior to Exam: 13w2d LMP: Patient's last menstrual period was 04/30/2023 (exact date). ??GA by Today's US: 13w4d Pregnancies: ??GA JENNIFER: 13w2d Last Menstrual Period Pre- BMI: ??28.53 ??JENNIFER: 02/04/2024 Hx/Indications: AMA QUENTIN on Rad US Long QT On EKG in 2021 Low Risk NIPS Date of Exam: 08/01/2023 Evaluation Gestation Type israel Cardiac Activity present Motion normal Presentation breech Amniotic Fluid normal Placenta Location posterior Placenta Appearance appears normal Placenta Cord Insertion normal First Trimester Gestational Sac normal Amnion seen Nuchal Translucency appears normal Nuchal Area appears normal Intracranial Translucency appears normal Measurement Value Rank GA FHR 155 bpm ?? CRL 7.45 cm 65% 13w4d Head ??Abdomen Cranium appears normal ??Diaphragm grossly normal Midline Falx appears normal ??Stomach grossly normal Cerebellum grossly normal ??Liver grossly normal Cisterna Magna grossly normal ??Umbilical Cord Insertion appears normal Choroid Plexus appears normal ??Cord Vessels three Face ??Heart Orbits appears normal ??Heart Rhythm regular Lenses appears normal ??Situs normal Profile appears normal ??4 [place] grossly normal Nasal Bone appears normal ??Cardiac [place] appears normal Maxilla appears normal ??3 Vessel Trachea View grossly normal Mandible appears normal ??Urinary Tract Spine ??Right Kidney appears normal Spine grossly normal ??Left Kidney appears normal Chest ??Bladder appears normal Thorax appears normal ? Lungs appears normal ? Extremities ? Right Upper Extremity appears normal ? Right Hand visualized ? Left Upper Extremity appears normal ? Left Hand visualized ? Right Lower Extremity appears normal ? Right Foot visualized ? Left Lower Extremity appears normal ? Left Foot visualized ? Maternal Evaluation Cervix Normal Uterus Normal Cervical Length ? Approach N/A Right Ovary Inadequately Visualized With Fundal Pressure (cm) N/A ?? Left Ovary Inadequately Visualized Funneling Absent Right Adnexa Normal Cul-de-sac No fluid seen Left Adnexa Normal A transvaginal ultrasound was performed.The patient was accompanied by their support person. ? Impression 1) Intrauterine at 13w2d weeks gestational age 2) An early detailed anatomic survey is described above. ??No abnormalities were seen 3) The crown rump length is consistent with stated gestation age. ?? 4) Normal cardiac axis and blood flow pattern 5) Normal appearing nuchal translucency area 6) Normal appearing genitourinary system for gestational age Placenta is posterior, with inferior margin at the cervical canal. ??A previa cannot be excluded. ??If present, this is likely to resolve with advancing gestation. A early anatomic survey has up to a 60% to 70% detection rate for anomalies. ??Above survey is reassuring. ??A detailed scan near 20 weeks is still recommended. ?? Maria Dolores Del Real MANAGER OF SUPPLY CHAIN, BONDED STRUCTURES REPAIRER RAD MFM US * Vaginitis Panel, DNA Probe (07/27/2023 11:24 AM CDT) Bacterial Vaginosis Negative Negative 07/28/2023 2:00 PM CDT [facility] Albertina species Negative Negative 2:00 PM CDT [facility] Albertina glabrata Negative Negative 07/28/2023 2:00 PM CDT [facility] Trichomonas vaginalis Negative Negative 07/28/2023 2:00 PM CDT [facility] Swab STD SPECIMEN FROM VAGINA / Unknown Non-blood Collection / Unknown 07/27/2023 11:24 AM CDT 07/27/2023 2:[address] [facility] - 07/28/2023 2:00 PM CDT Test performed by Farm Equipment Maintenance Supervisor Mediated Amplification (TMA). Sofiya Vo MD LAB_1 [facility] [address] * Chlamydia & GC (14 Years and Older): Vagina (07/27/2023 11:24 AM CDT) Only the most recent of2 resultswithin the time period is included. Chlamydia Trachomatis STD Not Detected Not Detected 07/28/2023 12:12 PM CDT [facility] N. gonorrhoeae STD Not Detected Not Detected 07/28/2023 12:12 PM CDT [facility] Swab STD SPECIMEN FROM VAGINA / Unknown Non-blood Collection / Unknown 07/27/2023 11:24 AM CDT 07/27/2023 2:58 PM CDT Narrative [facility] - 07/28/2023 12:12 PM CDT Test performed by Farm Equipment Maintenance Supervisor Mediated Amplification (TMA). Sofiya Vo MD LAB_1 [facility] [address] * OB CLINIC ULTRASOUND LIMITED (07/21/2023) Only the most recent of2 resultswithin the time period is included. Anatomical Region Laterality Modality Other Impressions 07/21/2023 [facility] Cephalic presentation Gross movement visualized FHR 160 bpm Maria Dolores DelR eal APRN, CNP PN CLINIC US ORDERABLES * Rubella Immune Status, IgG (07/07/2023 9:48 AM CDT) Pathologist [facility] Rubella Units 3.84 07/08/2023 10:19 AM CDT [facility] Comment:The magnitude of the measured result, above the cutoff, is not indicative of the amount of antibody present. Rubella Intepretation Immune Immune 07/08/2023 10:19 AM CDT [facility] Blood Venipuncture / Unknown 07/07/2023 9:48 AM CDT 07/07/2023 9:48 AM CDT Maria Dolores Del Real APRN, CNP LAB_1 [facility] [address] * Antibody Screen (07/07/2023 9:48 AM CDT) [facility] Antibody Screen Interpretation Negative 07/07/2023 4:42 PM CDT [facility] Blood Venipuncture / Unknown 07/07/2023 9:48 AM CDT 07/07/2023 9:48 AM CDT Maria Dolores Del Real APRN, CNP LAB_1 Performing Organization Address [facility] Co de Phone Number [facility] [address] * Treponema Screen (Syphilis) (07/07/2023 9:48 AM CDT) Treponema Screen Result 0.127 {s_co_ratio } 07/07/2023 4:38 PM CDT [facility] Treponema Screen Interpretation Non Reactive Non Reactive 07/07/2023 4:38 PM CDT [facility] Blood Venipuncture / Unknown 07/07/2023 9:48 AM CDT 07/07/2023 9:48 AM CDT Maria Dolores Del Real APRN, CNP LAB_1 Performing Organization Address [facility] de Phone Number [facility] [address] * Blood Type (07/07/2023 9:48 AM CDT) Pathologist [facility] ABO A 07/07/2023 4:42 PM CDT [facility] RH Positive 07/07/2023 4:42 PM CDT [facility] Blood Venipuncture / Unknown 07/07/2023 9:48 AM CDT 07/07/2023 9:48 AM CDT Maria Dolores Del Real APRN, CNP LAB_1 Performing Organization Address [facility] de Phone Number [facility] [address] * Panorama NIPT (07/07/2023 9:48 AM CDT) Panorama NIPT See Scanned Report 07/16/2023 10:34 AM CDT [employer] Blood Venipuncture / Unknown 07/07/2023 9:48 AM CDT 07/07/2023 9:48 AM CDT Maria Dolores Cabral Gt ZEPEDA CNP LAB_1 [facility] [address], [address] [place] [address] * Rapid Drug Panel, Urine (with Confirmation) without THC (07/07/2023 9:48 AM CDT) [facility] Amphetamines Screen Not Detected Not Detected 07/07/2023 4:08 PM CDT [facility] Barbiturates Screen Not Detected Not Detected 07/07/2023 4:08 PM CDT [facility] Benzodiazepines Screen Not Detected Not Detected 07/07/2023 4:08 PM CDT [facility] Buprenorphine Screen Not Detected Not Detected 07/07/2023 4:08 PM CDT [facility] Cocaine Metabolite Screen Not Detected Not Detected 07/07/2023 4:08 PM CDT [facility] Methadone Screen Not Detected Not Detected 07/07/2023 4:08 PM CDT [facility] Opiates Screen Not Detected Not Detected 07/07/2023 4:08 PM CDT [facility] Oxycodone Screen Not Detected Not Detected 07/07/2023 4:08 PM CDT [facility] Phencyclidine (PCP) Screen Not Detected Not Detected 07/07/2023 4:08 PM CDT [facility] Creatinine, Urine, Random 275 >20 mg/dL 07/07/2023 4:08 PM CDT [facility] Urine Non-blood Collection / Unknown 07/07/2023 9:48 AM CDT 07/07/2023 9:48 AM CDT Narrative [facility] - 07/07/2023 4:08 PM CDT The absence of expected drug(s) and/or drug metabolite(s) may indicate non-compliance, inappropriate timing of specimen collection relative to drug administration, poor drug absorption, diluted/adulterated urine or limitations of testing. The concentration must be greater than or equal to the cutoff concentration to be reported as positive. For medical purposes only: not valid for forensic, legal, or employment use. Maria Dolores Del Real APRN, CNP LAB_1 Performing Organization Address [facility] de Phone Number [facility] [address] [place] [address] * HIV 1/2 Ag/Ab 4th Generation (07/07/2023 9:48 AM CDT) [facility] HIV 1/2 Antigen/Antib monica (4th generation) Negative (Non Reactive) Negative (Non Reactive) 07/07/2023 4:39 PM CDT [facility] Comment:HIV-1 p24 Antigen an d HIV-1/HIV-2 Antibody not detected Blood Venipuncture / Unknown 07/07/2023 9:48 AM CDT 07/07/2023 9:48 AM CDT Maria Dolores Del Real APRN, CNP LAB_1 Performing Organization Address [facility] de Phone Number [facility] [address] [place] [address] * Complete Blood Count-No Diff (07/07/2023 9:48 AM CDT) [facility] WBC 9.5 3.5 - 10.5 x10(9)/L 07/07/2023 2:02 PM T [facility] RBC 4.56 3.90 - 5.03 x10(12)/L 07/07/2023 2:02 PM T [facility] Hemoglobin 13.7 12.0 - 15.5 g/dL 07/07/2023 2:02 PM [facility] HCT 39.5 34.9 - 44.5 % 07/07/2023 2:02 PM [facility] MCV 86.6 80.0 - 100.0 fL 07/07/2023 2:02 PM [facility] MCH 30.0 27.6 - 33.3 pg 07/07/2023 2:02 PM [facility] MCHC 34.7 31.5 - 35.2 g/dL 07/07/2023 2:02 PM [facility] RDW 12.4 11.9 - 15.5 % 07/07/2023 2:02 PM CDT [facility] Platelets 246 150 - 450 x10(9)/L 07/07/2023 2:02 PM CDT [facility] Automated NRBC 0 <=0 /100 WBC 07/07/2023 2:02 PM CDT [facility] Blood Venipuncture / Unknown 07/07/2023 9:48 AM CDT 07/07/2023 9:48 AM CDT Maria Dolores Del Real APRN, CNP LAB_1 Performing Organization Address City/[facility]/ZIP Co de Phone Number [facility] [address] [place] [address] * Hepatitis C Antibody, with Reflex (07/07/2023 9:48 AM CDT) Hepatitis C Antibody Negative (Non Reactive) Negative (Non Reactive) 07/07/2023 4:39 PM CDT [facility] Comment:Antibodies to HCV no t detected. Does not exclude the possiblity of exposure to HCV. Blood Venipuncture / Unknown 07/07/2023 9:48 AM CDT 07/07/2023 9:48 AM CDT Maria Dolores Del Real APRN, CNP LAB_1 Performing Organization Address [facility] de Phone Number [facility] [address] * Hepatitis B Surface Antigen (07/07/2023 9:48 AM CDT) Hepatitis B Surface Antigen Negative (Non Reactive) Negative (Non Reactive) 07/07/2023 4:38 PM CDT [facility] Blood Venipuncture / Unknown 07/07/2023 9:48 AM CDT 07/07/2023 9:48 AM CDT Maria Dolores Del Real APRN, CNP LAB_1 Performing Organization Address City/[facility] Co de Phone Number [facility] [address] [place] [address], [place] * Hgb A1C (07/07/2023 9:48 AM CDT) Hemoglobin A1C 5.0 <=5.6 % 07/07/2023 8:20 PM CDT [facility] Estimated Average Glucose (Calc) 97 < 117 mg/dL 07/07/2023 8:20 PM CDT [facility] Comment:Estimated average gl ucose (eAG) converts A1c into glucose units (mg/dL) and estimates average glucose over the past approximately 3 months. The eAG reference interval (<117 mg/dL) corresponds to an A1c of <5.7%. Blood Venipuncture / Unknown 07/07/2023 9:48 AM CDT 07/07/2023 9:48 AM CDT Maria Dolores Del Real APRN, SEBASTIÁN LAB_1 Performing Organization Address City/State/[facility] Co de Phone Number [facility] [address] * US OB <14 Weeks w EV Single Follow Up Growth (06/22/2023 8:16 AM CDT) Anatomical Region Laterality Modality Pelvis Ultrasound 06/22/2023 7:41 AM CDT Impressions 06/22/2023 9:43 AM CDT COMPARISON: Ultrasound 06/08/2023, 01/27/2023, 12/23/2022, 12/24/2019 TECHNIQUE: ??Transabdominal and transvaginal imaging was performed. ?? FINDINGS: In the right uterine body, there is a 2.1 x 1.5 x 1.2 cm ovoid hypoechoic area. Gestational sac: Unremarkable. [place]-rump length measures 1.8 cm, corresponding to 8w2d gestational age. ?? Gestational sac location: Normal JENNIFER 01/30/2024. ?? Embryonic/ cardiac activity is identified with heart rate 178 bpm. ?? Right Ovary: Measures 3.6 x 2.3 x 2.2 cm and contains a probable corpus luteum. Left Ovary: Measures 3.1 x 1.9 x 2.1 cm and contains a probable corpus luteum. No suspicious adnexal masses. Free Fluid: No significant free fluid. GA by LMP: ??7w4d GA by Prior US: ??8w1d GA by today's US: ??8w2d JENNIFER by today's US: 01/30/2024 IMPRESSION: 1. Single living intrauterine with a sonographic gestational age of 8 weeks +2 days, corresponding to an JENNIFER of 01/30/2024. 2. In the right uterine body, there is an indeterminant 2.1 x 1.5 x 1.2 cm ovoid hypoechoic area which was not seen previously. This could potentially represent an intramural fibroid. Recommend attention on follow-up. Narrative Procedure Note Lorenzo Jerome MD - 06/22/2023 IMPRESSION COMPARISON: Ultrasound 06/08/2023, 01/27/2023, 12/23/2022, 12/24/2019 TECHNIQUE: Transabdominal and transvaginal imaging was performed. FINDINGS: In the right uterine body, there is a 2.1 x 1.5 x 1.2 cm ovoidhypoechoic area. Gestational sac: Unremarkable. [place]-rump length measures 1.8 cm, corresponding to 8w2d gestational age. Gestational sac location: Normal JENNIFER 01/30/2024. Embryonic/ cardiac activity is identified with heart rate 178 bpm. Right Ovary: Measures 3.6 x 2.3 x 2.2 cm and contains a probable corpusluteum. Left Ovary: Measures 3.1 x 1.9 x 2.1 cm and contains a probable corpusluteum. No suspicious adnexal masses. Free Fluid: No significant free fluid. GA by LMP: 7w4d GA by Prior US: 8w1d GA by today's US: 8w2d JENNIFER by today's US: 01/30/2024 IMPRESSION: 1. Single living intrauterine with a sonographic gestational ageof 8 weeks +2 days, corresponding to an JENNIFER of 01/30/2024. 2. In the right uterine body, there is an indeterminant 2.1 x 1.5 x 1.2 cmovoid hypoechoic area which was not seen previously. This couldpotentially represent an intramural fibroid. Recommend attention onfollow-up. Sofiya Vo MD RAD US * (ABNORMAL) HCG, Quantitative, Serum (06/10/2023 5:28 PM CDT) HCG, Quantitative 12,892(H) <=4 mIU/mL 06/10/2023 9:36 PM CDT [facility] Blood Venipuncture / Unknown 06/10/2023 5:28 PM CDT 06/10/2023 5:28 PM CDT Narrative [facility] - 06/10/2023 9:36 PM CDT Expected ranges Negative: <5 mIU/mL Indeterminate: 5-25 mIU/mL Positive: >25 mIU/mL Suggest repeat testing of indeterminate result in 72 hours. Michaela Lopez MD LAB_1 [facility] [address] * Trichomonas vaginalis, Molecular Detection, Endocervix/Vagina (14 years and older) (06/08/2023 3:29PM CDT) Trich Vaginalis Amplified Not Detected Not Detected 06/09/2023 12:[address] [facility] Swab STD SPECIMEN FROM VAGINA / Unknown Non-blood Collection / Unknown 06/08/2023 3:29 PM CDT 06/08/2023 4:32 PM CDT [facility] - 06/09/2023 12:23 PM CDT Test performed by Farm Equipment Maintenance Supervisor Mediated Amplification (TMA). Sofiya Vo MD [facility]1 [facility] [address] * US OB <14 Weeks W EV Single (06/08/2023 9:18 AM CDT) Anatomical Region Laterality Modality Pelvis Ultrasound 06/08/2023 8:37 AM CDT Impressions 06/08/2023 10:41 AM CDT COMPARISON: 01/27/2023 TECHNIQUE: ??Transabdominal and transvaginal imaging was performed. ?? FINDINGS: Gestational sac: Unremarkable. Small subchorionic hemorrhage measuring 1.1 x 0.8 x 1.2 cm. [place]-rump length measures 0.4 cm, corresponding to 6w1d gestational age. ?? Gestational sac location: Normal JENNIFER 01/31/2024. ?? Embryonic/ cardiac activity is identified with heart rate 101 bpm. ?? Right Ovary: Measures 3.8 x 2.2 x 2.9 cm and contains a probable corpus luteum. Left Ovary: Measures 3.6 x 2.0 x 2.8 cm and shows a complex area with peripheral flow measuring 1.4 x 1.6 x 1.4 cm, possibly a corpus luteum. No suspicious adnexal masses. Free Fluid: Small amount of simple free fluid, likely physiologic. GA by LMP: ??5w4d GA by Prior US: ??NA GA by today's US: ??6w1d JENNIFER by today's US: 01/31/2024 IMPRESSION: Single intrauterine gestation sac containing a pole with cardiac activity and a yolk sac. Estimated gestation age by crown-rump length is 6 weeks 1 day, yielding an estimated date of confinement of 01/31/2024. Narrative Procedure Note Randal Pleitez MD - 06/08/2023 IMPRESSION COMPARISON: 01/27/2023 TECHNIQUE: Transabdominal and transvaginal imaging was performed. FINDINGS: Gestational sac: Unremarkable. Small subchorionic hemorrhage measuring 1.1x 0.8 x 1.2 cm. [place]-rump length measures 0.4 cm, corresponding to 6w1d gestational age. Gestational sac location: Normal JENNIFER 01/31/2024. Embryonic/ cardiac activity is identified with heart rate 101 bpm. Right Ovary: Measures 3.8 x 2.2 x 2.9 cm and contains a probable corpusluteum. Left Ovary: Measures 3.6 x 2.0 x 2.8 cm and shows a complex area withperipheral flow measuring 1.4 x 1.6 x 1.4 cm, possibly a corpus luteum. No suspicious adnexal masses. Free Fluid: Small amount of simple free fluid, likely physiologic. GA by LMP: 5w4d GA by Prior US: NA GA by today's US: 6w1d JENNIFER by today's US: 01/31/2024 IMPRESSION: Single intrauterine gestation sac containing a pole withcardiac activity and a yolk sac. Estimated gestation age by crown-rumplength is 6 weeks 1 day, yielding an estimated date of confinement of01/31/2024. Sofiya Vo MD RAD US * PAP Test (03/26/2022 11:10 AM BUDGET COORDINATOR) Case Report Pap ? Case: [id number] ? Authorizing Provider: ??Gt, Maria Dolores Cabral, KATELYN, ?? Collected: ? 03/26/2022 1110 ? BONDED STRUCTURES REPAIRER ? Ordering Location: ? [facility] ? Received: ?03/26/2022 1119 ? Services-GEOPHYSICS PROFESSOR ? First Screen: ?Anna Grider ? Specimen: ?Pap Test, Routine, Cervix/Endocervix ? 04/20/2022 11:23 AM CDT [facility] Pap Specimen Adequacy Satisfactory for evaluation, endocervical/peck sformation zone component absent. 04/20/2022 11:23 AM CDT [facility] Pap Interpretation (NILM) Negative for intraepithelial lesion or malignancy. 04/20/2022 11:23 AM CDT [facility] Pap Disclaimer The Pap test is a screening test designed to aid in the detection of cervical cancer and its precursor lesions. It is not a diagnostic procedure and should not be used as the sole means of detecting cervical cancer. Both false-positive and false-negative results may occur. 04/20/2022 11:23 AM CDT [facility] Gross Description The specimen is received in SurePath fixative and properly labeled. 1 Pap-stained SurePath slide is prepared. 04/20/2022 11:23 AM CDT [facility] Embedded Images 11:23 AM CDT [facility] Other Specimen Type ENTIRE ENDOCERVIX / Unknown 03/26/2022 11:10 AM BUDGET COORDINATOR 03/26/2022 11:19 AM BUDGET COORDINATOR Comment:LMP: Patient's last menstrual period was 03/15/2022 (exact date). Maria Dolores Del Real APRN, CNP LAB PATHOLOGY [facility] [address] [place] [address], [facility] from Last 3 Months or Most Recently Relevant to Health Maintenance Care Teams Java Lead Architect Relationship Specialty [place] [address] [address] [place], [place] [id number] PCP - General Family Practice 11/03/20
--- OUTSIDE RECORDS SUMMARY | 2023-09-08 23:11 | XMS_ITS | Encounter Summary ---
Author Organization [employer] Address [address], [place] [address] Care Team Providers Care Patient Educator Name Role Phone Randal Joe MD Primary Care Provider [phone] Reason for Referral * Consult/Transfer Care (Routine) - New Request Specialty Diagnoses / Procedures Referred By Contshabbir t Referred To Contact Diagnoses High-risk in second trimester Maria Dolores Del Real APRN, CNP [address] [facility] [address] [place] [address] Referral ID Status Reason Start Date Expiration Date V isits Requested Visits Authorized [id number] New Request 08/26/2023 11/24/2024 1 1 Scheduling Instructions Your clinician has recommended an appointment with Tiffany Li. You may call [phone] to schedule your appointment. We suggest you call your health insurance company about your coverage and benefits for this appointment. Question Answer Appointment Urgency? Non-Urgent Reason for visit? Reason for Visit * Reason Comments CONSTIPATION Encounter Details Date Type Department Care Team (Late st Contact Info) Description 08/26/2023 3:30 PM CDT Routine [facility]-ADULT BASIC EDUCATION TEACHER [address] [facility], [address] [place] [address] Maria Dolores Del Real APRN, CLUBHOUSE ATTENDANT [address] [place] [address] CONSTIPATION Social History Tobacco Use Types Packs/Day Years [...] Sign Reading Time Taken Comments Blood Pressure 124/70 08/26/2023 3:36 PM CDT Pulse 86 08/26/2023 3:36 PM CDT Temperature - - Respiratory Rate - - Oxygen Saturation - - Inhaled Oxygen Concentration - - Weight 85.5 kg (188 lb 9.6 oz) 08/26/2023 3:36 P M CDT Height - - Body Mass Index 29.1 07/21/2023 11:28 AM CDT documented in this encounter Patient Instructions * Patient Instructions* Maria Dolores Del Real APRN, SEBASTIÁN - 08/26/2023 3:30 PM CDT Images from the original note [...] safe. Watch this short video by Proof Blackwell: Proof: Some Think Drinking During is OK. It???s Not. - Ronda video Marijuana use is never recommended while or . Learn why here: https://[employer]/41728.pdf is a time of transition. If you feel overwhelmed, anxious or depressed, see the followingresources: Emotional Distress During and After : https://[employer]/59720.pdf Resources & Support for New & Expecting Parents: https://[employer]/72658.pdf The 3 books provided throughout are also available digitally. Here are links to each book: Your Guide to : https://user-Works.io.Cupple/LcmuryBezhorjg-Iswr-Gypww-in-d-Evlmcop- Preparing for Childbirth: https://userJarvam/DqyzohBojpqatj-Tcu-Ebnb-of-Motherhood Taking Care of You and Your : https://userJarvam/SkykrqLdoymsyu-M-Dcc-Beginning [place] for our free herb called ???myHealthyPregnancy?? powered by [employer]. The herb offers many quick articles and videos on , labor, , , and newborncare. Find instructions here: Or click on this link: myHealthyPregnancy tracker herb [employer] Constipation in The same hormones that help your uterus to relax and grow during , also make your intestines (bowels) more relaxed. This relaxation can lead to constipation. Constipation is when bowel movements become less frequent, harder and, perhaps, even painful. Hemorrhoids can result from too much straining to try to have bowel movements. The best way to manage constipation in is by: Increasing your water intake. Increasing the amount of fiber you eat. This includes whole grains, fruits (including prunes), vegetables and beans. When you buy cereal or bread, check the fiber content and choose brands that have the most fiber. Taking a fiber supplement like Citrucel, Metamucil or Benefiber. These can be added to water, juiceor tea. Start with 1 dose a day and gradually work up to 2 or 3 times a day to avoid feeling bloated. Fiber supplements also help to keep the bowel movements soft Tips Constipation is less likely if you get some exercise, like walking for 30 minutes a day. Have an unhurried time each day to try to have a bowel movement. A good time may be after a meal when your bowels are most active. Enjoy a hot drink (like coffee or tea) that may stimulate a bowel movement. Put a small footstool under your feet when sitting on the toilet. This helps flex your hips and getyou into more of a squatting position. If you are on an iron supplement, you may take Colace to help keep your bowel movements soft. Note:Be aware that the gelatin capsule may contain pork products. If you need an occasional stimulant laxative, you may safely use any of these products: Milk of Magnesia Miralax, Glycolax or magnesium citrate Senakot, Smooth Move tea, Dulcolax, or Correctol Avoid using stimulant laxatives frequently or on a chcf basis. Laxatives can make your bowels more sluggish over time. documented in this encounter Progress Notes * Maria Dolores Del Real APRN, CNP - 08/26/2023 3:30 PM CDT [facility] CC: Problem OB visit - constipation and UTI in S: Alisia is a 38 y.o. at 16w6d who presents by herself. She feels horrible today. Has been using MiraLax and Colace once daily since she left the ED. Her stool has been more soft now. Having some gas pain as well. Feels the taste of vomit in her mouth but has not been vomiting. Using Pepcid OTC PRN for GERD. Feeling very concerned about her fiber intake and if she is eating too much fiber. Also mentions a lot of concern over a bowel obstruction. She called in to triage on 08/21 with concerns about constipation. She was advised to use Colace and/or an OTC fleet enema. She declined this advice out of fear for bowel obstruction and presented to the ED. Exam revealed no fecal impaction. UA showed possible UTI for which she was prescribed Macrobid 100 mg BID x 7 days. She was given an enema and had a large BM and discharged to home. She has been seen in the ED multiple times in this for N/V, constipation, and vaginal bleeding. She has also called in to nurse triage multiple times for various concerns and questions. I last saw her on 08/15/2023 for anxiety in and at that time she declined pharmacologic interven tion. No movement yet. Denies leaking, bleeding, regular painful contractions. complications: - REJI - AMA O: BP 124/70 (BP Location: Right Arm, BP Cuff Size: Regular - Long) Pulse 86 Wt 188 lb 9.6 oz (85.5 kg) LMP 04/30/2023 (Exact Date) BMI 29.10 kg/m?? Gen: alert, oriented, NAD Abd: gravid, soft, non-tender, no HSM or rash See OB flowsheet. A/P: 38 y.o. at 16w6d based on LMP c/w 6w1d US presenting for constipation in . Patient Active Problem List Diagnosis Panic disorder without agoraphobia Anxiety (HRC) Chronic migraine without aura without status migrainosus, not intractable Mild major depression (HRC) Seronegative arthritis Vitamin D deficiency (HRC) Prolonged Q-T interval on ECG Supervision of high risk in second trimester Nausea/vomiting in Constipation: - Continue MiraLAX and Colace over the weekend. If stools too loose, stop Colace - Nutrition consult - F/up with PCP prn UTI in : - Complete Macrobid as prescribed - UC in 1 week Care: - OB labs reviewed: Blood type: A pos Rubella: immune HIV: negative Hep B Ag: negative Treponema: negative - Genetics: NIPS low risk, NT low risk with possible placenta previa - Anatomy ultrasound: L2 US scheduled 09/18 - Continue taking vitamins RTC for next routine OB visit as scheduled. Maria Dolores Del Real APRN, CNP documented in this encounter Plan of Treatment Upcoming Encounters Date Type Department Care Team (Late st Contact Info) Description 09/12/2023 3:20 PM CDT Appointment [facility]-ADULT BASIC EDUCATION TEACHER [address] [facility], [address] [place] [phone] [place] [address] [address] [place] [address] 09/19/2023 10:00 AM CDT Appointment [facility] [address] [facility], [address] [place] [phone] Maria Dolores Del Real, PACKAGING ASSEMBLER, CLUBHOUSE ATTENDANT [address] [place] [address] 09/19/2023 11:00 AM CDT Appointment [facility] [address] [facility], [address] [place] [phone] Shaggy Smith MD [address] [place] [address] [address] [place], [place] [phone] 10/13/2023 9:00 AM CDT Appointment [facility]-ADULT BASIC EDUCATION TEACHER [address] [facility], [facility] [address] [place] [phone] Maria Dolores Del Real, PACKAGING ASSEMBLER, CLUBHOUSE ATTENDANT [address] [place], [place] [phone] Scheduled Orders Name Type Priority Associated Diagnoses Orde r Schedule Urine Culture Microbiology Routine Urinary tract infection in mother during second trimester of Expected: 08/26/2023, Expires: 11/24/2023 Scheduled Referrals Name Type Priority Associated Diagnoses Orde r Schedule Nutrition/Dietitian Referral Routine High-risk in second trimester Ordered: 08/26/2023 documented as of this encounter Visit Diagnoses Diagnosis Constipation during in second trimester- Primary Urinary tract infection in mother during second trimester of High-risk in second trimester documented in this encounter Care Teams Patient Educator Relationship Specialty [place] [address] [place] [address] PCP - General Family Practice 11/03/20 documented as of this encounter
--- OUTSIDE RECORDS SUMMARY | 2023-09-08 23:11 | XMS_ITS | Encounter Summary ---
Author Organization [employer] Address [address] [address] Care Team Providers Care Dry Chain Offbearer Name Role Phone Randal Joe MD Primary Care Provider [phone] Reason for Visit * Reason Comments Concerns Encounter Details Date Type Department Care Team (Late st Contact Info) Description 09/06/2023 Nurse Triage [facility] [address] Obstetrics/Gynecology [address] [place] [phone] [place] [address] [place], [place] [phone] Concerns Social History Tobacco Use Types Packs/Day [...] Nursing Notes * Carin Root, RN - 09/06/2023 11:00 AM CDT 38 y.o. currently 18w3d with following concerns: Strained to have a BM/pass gas last night and had sharp abdominal pain. This pain has since resolved. Advised with harmless causes pain will resolve and this is reassuring. Notices the left side of her uterus feels firmer than the other side. Advised could be where baby is at or could also be bowels shifted over d/t growing uterus. Patient having BMs and is on a bowel regimen. Concerned that she is losing weight. Eating small healthy meals throughout the day but concerned with the weight lose. Tried to reassure patient that baby will get what baby needs and as long as she is eating healthy and drinking fluids, weight loss likely d/t change in eating habits compared to pre-. Will discuss her concerns at upcoming appointment. Problem list reviewed as related to this call. Future Appointments Provider Department Center 09/12/2023 3:20 PM [place] Metzger DO [facility]-ANIMAL CRUELTY INVESTIGATOR [facility] Reason for Disposition Mild abdominal pain Protocols used: - Abdominal Pain Less Than 20 Weeks [id number] documented in this encounter Plan of Treatment Upcoming Encounters Date Type Department Care Team (Late st Contact Info) Description 09/12/2023 3:20 PM CDT Appointment [facility]-ANIMAL CRUELTY INVESTIGATOR [address] [place] [address], [address] [phone] Miranda Metzger DO [address] [place] [address] Dr G[address] [place] [id number] 09/19/2023 10:00 AM CDT Appointment [facility] [address] [place] [address], [facility] [address] [place] [phone] Maria Dolores Del Real, ASSOCIATE EDITOR, SSDS MK [address] ADVANCED OPERATOR [address] [place] [address] [place] [address] 09/19/2023 11:00 AM CDT Appointment [facility] [address] [place] [address], [address] [place] [phone] Shaggy Smith MD [address] [place] [address] [facility] [place] [address] 10/13/2023 9:00 AM CDT Appointment [facility]-ANIMAL CRUELTY INVESTIGATOR [address] [facility], [address] [place] [phone] Maria Dolores Del Real APRN, SSDS MK 2 ADVANCED OPERATOR [address] [place] [address] [place] [address] documented as of this encounter Visit Diagnoses Not on filedocumented in this encounter Care Teams Dry Chain Offbearer Relationship Specialty [place] [address] [place] [address] PCP - General Family Practice 11/03/20 documented as of this encounter
--- OUTSIDE RECORDS SUMMARY | 2023-09-08 23:12 | XMS_ITS | Encounter Summary ---
Author Organization [employer] Address [address], [place] [address] Care Team Providers Care Jewel Bearing Turner Name Role Phone Randal Joe MD Primary Care Provider [phone] Reason for Visit * Reason Comments Vaginal Discharge Encounter Details Date Type Department Care Team (Late st Contact Info) Description 07/27/2023 10:45 AM CDT Routine [facility]-MENTAL RETARDATION AIDE [address] [facility] [address] [place] [address] [place] [address] [phone] Vaginal Discharge Social History Tobacco Use Types Packs/Day Years Used Date Smoking Tobacco: Former Cigarettes Q uit: 08/28/2017 Smokeless Tobacco: Never Alcohol Use Standard Drinks/Week Comments Not Currently 0 (1 standard drink = 0.6 oz pur e alcohol) occ PHQ-2 Answer Date Recorded PHQ-2 Score 2 04/27/2022 Depression Answer Date Recor ded Last EPDS Total Score 9 07/07/2023 Last EPDS Self Harm Result 0-->never 07/06 Estimated Date of Delivery Comme nts Yes 02/04/2024 Based on last me nstrual period of 04/30/2023 (Exact Date) Sex and Gender Information Value Date Recorded Sex Assigned at Not on file Gender Identity Not on file Sexual Orientation Not on file documented as of this encounter Last Filed Vital Signs Vital Sign Reading Time Taken Comments Blood Pressure 108/73 07/27/2023 10:38 AM CDT Pulse 79 07/27/2023 10:38 AM CDT Temperature - - Respiratory Rate - - Oxygen Saturation - - Inhaled Oxygen Concentration - - Weight 83.5 kg (184 lb) 07/27/2023 10:38 AM CDT Height - - Body Mass Index 28.39 07/21/2023 11:28 AM CDT documented in this encounter Progress Notes * Sofiya Vo MD - 07/27/2023 10:45 AM CDT SUPERVISOR PROCESS TESTING PROGRESS CLINIC NOTE CC: urinary frequency, dysuria, vulvar burning HPI: Alisia Velasquez here for problem visit at 12w4d GA Urinary frequency and dysuria since 2 days ago Denies any fever or chills, Denies any vaginal bleeding and states some discharge, states occasionally smells and sometimes it looks yellow. State she feels confused and would like it to be checked. She has been seen for constipation at the ED. States that she was given a comode that was slightly dirty (blood stain?) she is worried this could have given her an infection. She was told it was not the case. She is worried she should be tested for syphilis since she went to a public restroom and it was dirty. Pt states she is worried since she has been searing on the web and found that syphilis is on therise. PE: BP 108/73 (BP Location: Right Arm, BP Cuff Size: Regular - Long) Pulse 79 Wt 184 lb (83.5 kg) LMP 04/30/2023 (Exact Date) BMI 28.39 kg/m?? General; A&O X 3, cooperative Cardiovascular; warm and well perfused, Respiratory; normal breathing without difficulties, Abdomen; soft, NTGR, no masses Pelvic examination: - External genitalia grossly normal - SSE normal vaginal mucosa, no lesions or lacerations, cervix appears closed, no bleeding, no abnormal discharge, swab collected Extremities; no edema, no cyanosis FHR 150 bpm A/P Alisia Velasquez here for ICD-10-CM 1. Dysuria R30.0 Urinalysis Routine, Micro/Culture if Pos: Clean Catch nitrofurantoin monohydrate macrocrystal (MACROBID) 100 MG capsule 2. Urinary frequency R35.0 nitrofurantoin monohydrate macrocrystal (MACROBID) 100 MG capsule 3. Vulvar burning N94.89 Vaginitis Panel, DNA Probe Vaginitis Panel, DNA Probe 4. Routine screening for STI (sexually transmitted infection) Z11.3 Chlamydia & GC (14 Years and Older): Vagina - pt reassured that STIs and UTIs do not develop from voiding in a public restroom. Main risk factor for a UTI at this point is being and hygiene measures were discussed - UA and Nitrofurantoin ordered, may need to stop if UA neg - due for STI screening, ordered, reassured her treponema screening was negative - RTC for NOB 2, scheduled with nv Dr. Vo 07/27/2023 documented in this encounter Plan of Treatment Upcoming Encounters Date Type Department Care Team (Late st Contact Info) Description 09/12/2023 3:20 PM CDT Appointment [facility]-MENTAL RETARDATION AIDE [address] [facility], [facility] [place] [address] [place] [address] [place] [address] [place] [id number] 09/19/2023 10:00 AM CDT Appointment [facility] [address] [facility], [facility] [place] [address] [place] [phone] Maria Dolores Del Real, ANALYSIS MGR, FLATBED TRUCK DRIVER [address] [place], [place] [address] [phone] 09/19/2023 11:00 AM CDT Appointment [facility] [address] [place] [address], [address] [place] [phone] Shaggy Smith MD [address] [place] [address] Dr Guevara [facility] [place] [address] 10/13/2023 9:00 AM CDT Appointment [facility]-MENTAL RETARDATION AIDE [address] [facility], [address] [place] [phone] Maria Dolores Del Real, ANALYSIS MGR, FLATBED TRUCK DRIVER [address] [place] [address] documented as of this encounter Procedures Procedure Name Priority Date/Time Associated Diagnosis Comments VAGINITIS PANEL Routine 07/27/2023 11:24 AM CDT Vulvar burning CHLAMYDIA & GC (14 YEARS & OLDER) Routine 07/27/2023 11:24 AM CDT Routine screening for STI (sexually transmitted infection) documented in this encounter Results * Chlamydia & GC (14 Years and Older): Vagina (07/27/2023 11:24 AM CDT) Chlamydia Trachomatis STD Not Detected Not Detected 07/28/2023 12:12 PM CDT [facility] N. gonorrhoeae STD Not Detected Not Detected 07/28/2023 12:12 PM CDT [facility] Swab STD SPECIMEN FROM VAGINA / Unknown Non-blood Collection / Unknown 07/27/2023 11:24 AM CDT 07/27/2023 2:58 PM CDT Narrative [facility] - 07/28/2023 12:12 PM CDT Test performed by [employer] Miller Mediated Amplification (TMA). Sofiya Vo MD LAB_1 [facility] [id number] [place] [address] * Vaginitis Panel, DNA Probe (07/27/2023 11:24 AM CDT) Bacterial Vaginosis Negative Negative 07/28/2023 2:00 PM CDT [facility] Albertina species Negative Negative 2:00 PM CDT [facility] Albertina glabrata Negative Negative 07/28/2023 2:00 PM CDT [facility] Trichomonas vaginalis Negative Negative 07/28/2023 2:00 PM CDT [facility] Swab STD SPECIMEN FROM VAGINA / Unknown Non-blood Collection / Unknown 07/27/2023 11:24 AM CDT 07/27/2023 2:58 PM CDT Narrative [facility] - 07/28/2023 2:00 PM CDT Test performed by [employer] Mediated Amplification (TMA). Sofiya Vo MD LAB_1 [facility] [address] * Urinalysis Routine, Micro/Culture if Pos: Clean Catch (07/27/2023 10:58 AM CDT) Urine Culture Comment Urinalysis results do not meet criteria for urine culture reflex. 07/27/2023 6:35 PM [facility] Urine Color Yellow 07/27/2023 6:35 PM [facility] Urine Clarity Clear Clear 07/27/2023 6:35 PM [facility] Specific [place], Urine 1.025 1.005 - 1.030 07/27/2023 6:35 PM [facility] PH Urine 6.5 5.0 - 8.0 07/27/2023 6:35 PM [facility] Protein, Urine Qual (mg/dL) Negative Neg/Trace 07/27/2023 6:35 PM [facility] Glucose Urine Qual (mg/dL) Negative Negative 07/27/2023 6:35 PM [facility] Ketones, Urine (mg/dL) Negative Negative 07/27/2023 6:35 PM [facility] Urobilinogen, Urine (EU/dL) 0.2 <2.0 07/27/2023 6:35 PM [facility] Bilirubin Urine Negative Negative 07/27/2023 6:35 PM [facility] Blood, Urine Negative Neg/Trace 07/27/2023 6:35 PM T [facility] Nitrite Urine Negative Negative 07/27/2023 6:35 PM CDT [facility] Leukocyte Est. Negative Negative 07/27/2023 6:35 PM CDT [facility] Urine Source Clean Catch 07/27/2023 6:35 PM CDT [facility] Urine URINE SPECIMEN COLLECTION, CLEAN CATCH / Unknown Non-blood Collection / Unknown 07/27/2023 10:58 AM CDT 07/27/2023 10:58 AM CDT Sofiya Vo MD LAB_1 [facility] [address] [place] [address] [address] [place] [address] documented in this encounter Visit Diagnoses Diagnosis Dysuria- Primary Urinary frequency Vulvar burning Unspecified symptom associated with female genital organs Routine screening for STI (sexually transmitted infection) Screening examination for venereal disease documented in this encounter Care Teams Jewel Bearing Turner Relationship Specialty [place] [address] [place] [address] PCP - General Family Practice 11/03/20 documented as of this encounter
--- OUTSIDE RECORDS SUMMARY | 2023-09-08 23:12 | XMS_ITS | Encounter Summary ---
Author Organization [email or web address] Address [address] [address] Care Team Providers Care Tennis Director Name Role Phone Randal Joe MD Primary Care Provider [phone] Reason for Visit * Reason Comments Lab/Rad Request Encounter Details Date Type Department Care Team (Late st Contact Info) Description 07/28/2023 Telephone [facility]-ASSEMBLY LINE LEADER [address] [facility], [facility] [address] [place] [address] [place] [address] [facility] [address] [place] [address] Lab/Rad Request Social History Tobacco Use Types Packs/Day Years [...] as of this encounter Nursing Notes * Radha Lund RN - 07/28/2023 12:44 PM CDT Called pt and relayed providers note to her. Encouraged phone visit to discuss anxiety with provider. Pt agreed. Pt states she did have anxiety as a teenager and that resolved but now since being and having a miscarriage previously she is experiencing anxiety again. Phone visit scheduled. Pt to call with any other concerns /sxs . * Maria Dolores Del Real APRN, [place] - 07/28/2023 12:30 PM CDT Syphilis cannot live outside the body and is not transmitted through inanimate objects. Please reassure her that she does not need to worry about this. I am concerned that her anxiety is becoming toointrusive and affecting her quality of life - is she interested in talking more about this and whatwe can do for anxiety? We routinely test for syphilis again at 28w. * Radha Lund RN - 07/28/2023 11:29 AM CDT Pt calling regarding her urine test results. Results negative for UTI. Pt was seen yesterday for UTI sxs. Per providers notes If UA negative pt to stop medication. PT has not picked up the medication. Informed her test negative for UTI and pt denies sxs today and aware medication not needed. Pt is tearful on the phone. Worried she may have syphilis due to sitting on a toilet with old and new blood when she was seen in ED. [facility] discussed [facility] this is not passed bysitting on a toilet but pt states she is very very worried and regardless for peace of mind wants the lab test done. Pt informed this is passed thru intercourse with someone who has syphilis. Pt still requesting lab test. documented in this encounter Plan of Treatment Upcoming Encounters Date Type Department Care Team (Late st Contact Info) Description 09/12/2023 3:20 PM CDT Appointment [facility]ASSEMBLY LINE LEADER [address] [place] [address], [address] [phone] [place] [address] [place] [address] 235607 09/19/2023 10:00 AM CDT Appointment [facility] [address] [place] [address] [phone] Maria Dolores Del Real APRN, SLEEVE FIXER [address] [place] [address] [phone] 09/19/2023 11:00 AM CDT Appointment [facility] [address] [place] [address], [facility] [address] [place] [phone] Shaggy Smith MD [address] [place] [address] [phone] 10/13/2023 9:00 AM CDT Appointment [facility]-ASSEMBLY LINE LEADER [address] [place] [address] [phone] Maria Dolores Del Real APRN, SLEEVE FIXER [address] [place] [address] [phone] documented as of this encounter Visit Diagnoses Not on filedocumented in this encounter Care Teams Tennis Director Relationship Specialty [place] [address] [place] [address] PCP - General Family Practice 11/03/20 documented as of this encounter
--- OUTSIDE RECORDS SUMMARY | 2023-09-08 23:12 | XMS_ITS | Encounter Summary ---
Author Organization [employer] Address [address], [place] [address] Care Team Providers Care Type Photography Supervisor Name Role Phone Randal Joe MD Primary Care Provider [phone] Reason for Visit * Reason Comments ANXIETY Routine Visit Encounter Details Date Type Department Care Team (Late st Contact Info) Description 08/15/2023 8:45 AM CDT Routine [facility]-HR DIRECTOR [address] [address] Maria Dolores Del Real, FELT TIPPING MACHINE TENDER, CERTIFIED ORTHOTIST/PEDORTHIST [address] [facility] [address] [place] [address] ANXIETY; Routine Visit Social History Tobacco Use Types Packs/Day Years [...] Sign Reading Time Taken Comments Blood Pressure 99/59 08/15/2023 8:32 AM CDT Pulse 87 08/15/2023 8:32 AM CDT Temperature - - Respiratory Rate - - Oxygen Saturation - - Inhaled Oxygen Concentration - - Weight 85.3 kg (188 lb) 08/15/2023 8:32 AM CDT Height - - Body Mass Index 29.01 07/21/2023 11:28 AM CDT documented in this encounter Progress Notes * Gt, Maria Dolores Cabral, FELT TIPPING MACHINE TENDER, CERTIFIED ORTHOTIST/PEDORTHIST - 08/15/2023 8:45 AM CDT [facility] CC: Anxiety in S: Alisia is a 38 y.o. at 15w2d who presents by herself. Feels anxious sometimes that sarah's heart has stopped beating - thinks this is related to her previous miscarriage. Had bad anxiety as a teenager - was on medication but stopped this 1-2 years ago. She has considered starting medication again but overall feels that her anxiety is starting to get better than it was earlier in . Work is stressful which can also exacerbate her anxiety. She has been to the ED multiple times in this for N/V, constipation, and vaginal bleeding. She has also called in to [facility] for various concerns and questions. Concerned about her low blood pressure today. Worried about the ASA lowering her BP. Nausea is much improved. Has certain food aversions and smells that trigger her. No movement yet. No vaginal bleeding. complications: - AMA - REJI O: BP 99/59 (BP Location: Right Arm, BP Cuff Size: Regular - Long) Pulse 87 Wt 188 lb (85.3 kg) LMP 04/30/2023 (Exact Date) BMI 29.01 kg/m?? Gen: alert, oriented, NAD Abd: gravid, soft, non-tender, no HSM or rash See OB flowsheet. A/P: 38 y.o. at 15w2d based on LMP c/w 6w1d US presenting for increasing anxiety in . Patient Active Problem List Diagnosis Panic disorder without agoraphobia Anxiety (HRC) Chronic migraine without aura without status migrainosus, not intractable Mild major depression (HRC) Seronegative arthritis Vitamin D deficiency (HRC) Prolonged Q-T interval on ECG Supervision of high risk in first trimester Primigravida of advanced maternal age in first trimester Subchorionic hematoma in first trimester Nausea/vomiting in REJI: - EPDS=8, no SI - Declines pharmacologic therapy at this time - Considering therapy Care: - OB labs reviewed: Blood type: A pos Rubella: immune HIV: negative Hep B Ag: negative Treponema: negative - Genetics: NIPS low risk, NT scheduled 07/31 - Anatomy ultrasound: L2 scheduled 09/18 - Continue taking vitamins RTC in 4 weeks (encouraged to schedule) or sooner PRN. Maria Dolores Del Real APRN, CNP documented in this encounter Plan of Treatment Upcoming Encounters Date Type Department Care Team (Late st Contact Info) Description 09/12/2023 3:20 PM CDT Appointment [facility]-HR DIRECTOR [address] [facility], [facility] [address] [place] [phone] [place] [address] [address] [place] [address] 09/19/2023 10:00 AM CDT Appointment [facility] [address] [facility], [address] [place] [phone] Maria Dolores Del Real APRN, CERTIFIED ORTHOTIST/PEDORTHIST [address] [place]var[place] [address] [place] [address] 09/19/2023 11:00 AM CDT Appointment [facility] [address] [place] [address], [address] [place] [phone] Shaggy Smith MD [address] [place] [address] [facility] [address] [place] [address] 10/13/2023 9:00 AM CDT Appointment [facility]-HR DIRECTOR [address] [facility], [address] [place] [address] Maria Dolores Del Real APRN, CERTIFIED ORTHOTIST/PEDORTHIST [address] [place] [address] [place], [place] [phone] documented as of this encounter Visit Diagnoses Diagnosis Anxiety during (HRC)- Primary documented in this encounter Care Teams Type Photography Supervisor Relationship Specialty [place] [address] [place] [address] PCP - General Family Practice 11/03/20 documented as of this encounter
--- OUTSIDE RECORDS SUMMARY | 2023-09-08 23:12 | XMS_ITS | Encounter Summary ---
Author Organization [employer] Address [address], [place] [address] Care Team Providers Care Journeyman Molder Name Role Phone Randal Jeo MD Primary Care Provider [phone] Encounter Details Date Type Department Care Team (Late st Contact Info) Description 07/27/2023 11:10 AM CDT Lab Visit [facility] [address] [place] [address], [facility] [address] [place] [address] Dysuria Social History Tobacco Use Types Packs/Day Years [...] Info) Description 09/12/2023 3:20 PM CDT Appointment [facility]-CUTTER FIRST [address] [facility], [address] [place] [phone] [place] [address] Guevara Mason [place], [place] 452167 09/19/2023 10:00 AM CDT Appointment [facility] [address] [place] [address] [phone] Maria Dolores Del Real, TURBO OPERATOR, RIDING DOUBLE [address] Guevara [place], [place] [phone] 09/19/2023 11:00 AM CDT Appointment [facility] [address] [place] [address], [address] [phone] Shaggy Smith MD [address] [place] [address] 879229 10/13/2023 9:00 AM CDT Appointment [facility]CUTTER FIRST [address] [place] [address] [phone] Maria Dolores Del Real, TURBO OPERATOR, RIDING DOUBLE [address] [place] [address] Dr Guevara [place], [place] [phone] documented as of this encounter Procedures Procedure Name Priority Date/Time Associated Diagnosis Comments URINALYSIS ROUTINE, MICRO/CULTURE IF POS Routine 07/27/2023 10:58 AM CDT Dysuria documented in this encounter Results * Urinalysis Routine, Micro/Culture if Pos: Clean Catch (07/27/2023 10:58 AM CDT) Urine Culture Comment Urinalysis results do not meet criteria for urine culture reflex. 07/27/2023 6:35 PM CDT [facility] Urine Color Yellow 07/27/2023 6:35 PM [facility] Urine Clarity Clear Clear 07/27/2023 6:35 PM [facility] Specific [place], Urine 1.025 1.005 - 1.030 07/27/2023 6:35 PM [facility] PH Urine 6.5 5.0 - 8.0 07/27/2023 6:35 PM [facility] Protein, Urine Qual (mg/dL) Negative Neg/Trace 07/27/2023 6:35 PM [facility] Glucose Urine Qual (mg/dL) Negative Negative 07/27/2023 6:35 PM [facility] Ketones, Urine (mg/dL) Negative Negative 07/27/2023 6:35 PM [facility] Urobilinogen, Urine (EU/dL) 0.2 <2.0 07/27/2023 6:35 PM [facility] Bilirubin Urine Negative Negative 07/27/2023 6:35 PM [facility] Blood, Urine Negative Neg/Trace 07/27/2023 6:35 PM [facility] Nitrite Urine Negative Negative 07/27/2023 6:35 PM [facility] Leukocyte Est. Negative Negative 07/27/2023 6:35 PM [facility] Urine Source Clean Catch 07/27/2023 6:35 PM [facility] Urine URINE SPECIMEN COLLECTION, CLEAN CATCH / Unknown Non-blood Collection / Unknown 07/27/2023 10:58 AM CDT 07/27/2023 10:58 AM T Sofiya Vo MD LAB_1 [facility] [address] [place] [address] [address] [place] [address] documented in this encounter Visit Diagnoses Diagnosis Dysuria documented in this encounter Care Teams Journeyman Molder Relationship Specialty [place] [address] [place] [address] PCP - General Family Practice 11/03/20 documented as of this encounter
--- OUTSIDE RECORDS SUMMARY | 2023-09-08 23:12 | XMS_ITS | Encounter Summary ---
Author Organization [employer] Address [address] [address] Care Team Providers Care Louver Mortiser Operator Name Role Phone Randal Joe MD Primary Care Provider [phone] Reason for Visit * Reason Comments CONSTIPATION Encounter Details Date Type Department Care Team (Late st Contact Info) Description 07/16/2023 Nurse Triage [facility] [address] [place], [place] [phone] [place] [address] [place], [place] [phone] CONSTIPATION Social History Tobacco Use Types Packs/Day [...] as of this encounter Nursing Notes * Bee Self, RN - 07/16/2023 10:43 PM CDT Pt calling at 11w0d , . States she's had constipation for the last few days. Last stool was yesterday but states it was very small. Tonight can feel stool at the end of rectum but unable to pass stool d/t its size. Has been leaking stooll. Drinking fruit juice and water but hasn't tried any OTC remedies. Rectal pain with pushing. States she feels very comfortable and does not want to try any OTC treatments at home. Does not have a bath tub or large container to do sitz baths. Prefers to go to ED tonight. No rectal bleeding. No vaginal bleeding or cramping. No vomiting. Problem list reviewed as related to this call. Reason for Disposition Tzta-Sqo-Hzffizc (OTC) medicines for constipation, questions about Mild rectal pain or itching Leaking stool Protocols used: - [id number] documented in this encounter Plan of Treatment Upcoming Encounters Date Type Department Care Team (Late st Contact Info) Description 09/12/2023 3:20 PM CDT Appointment [facility]-BEHAVIORAL SCIENTIST [address] [facility], [facility] [address] [place] [phone] [place] [address] Guevar[address] [place] [address]267 09/19/2023 10:00 AM CDT Appointment [facility] [address] [facility] [address] [place] [address] Maria Dolores Del Real APRN, INSPECTOR BULLET SLUGS [address] Guevar[place] [address] [place] [address] [phone] 09/19/2023 11:00 AM CDT Appointment [facility] [address] [place] [address], [address] [place] [phone] Shaggy Smith MD [address] [facility] [address] [place] [phone] 10/13/2023 9:00 AM CDT Appointment [facility]-BEHAVIORAL SCIENTIST [address] [facility], [address] [place] [address] Maria Dolores Del Real, WAREHOUSE ASSOCIATE DRIVER, INSPECTOR BULLET SLUGS [address] [place] [address] documented as of this encounter Visit Diagnoses Not on filedocumented in this encounter Care Teams Louver Mortiser Operator Relationship Specialty [place] [address] [place] [address] PCP - General Family Practice 11/03/20 documented as of this encounter
--- OUTSIDE RECORDS SUMMARY | 2023-09-08 23:12 | XMS_ITS | Encounter Summary ---
Author Organization [facility] Address [address], [place] [address] Care Team Providers Care Meter Readers Supervisor Name Role Phone Randal Joe MD Primary Care Provider [phone] Reason for Visit * Reason Comments Concerns Stool Color Change Encounter Details Date Type Department Care Team (Late st Contact Info) Description 08/08/2023 Nurse Triage [facility] [address] [place], [place] [phone] [place] [address] [place] [address] Concerns; Stool Color Change Social History Tobacco Use Types Packs/Day Years [...] as of this encounter Nursing Notes * Carmen Field RN - 08/08/2023 5:52 PM CDT Pt calling who is 14 weeks 2 days P3P0. Pt passed a solid light green stool today and became concerned. She is on vitamins and Pepcid. Pt has a little heartburn but Pepcid helping. No nausea. Pt denied fever, international travel, cramping or diarrhea. Advised monitoring. Reassurance given. Reason for Disposition Green stools Protocols used: Stools - Unusual [id number] documented in this encounter Plan of Treatment Upcoming Encounters Date Type Department Care Team (Late st Contact Info) Description 09/12/2023 3:20 PM CDT Appointment [facility]-FUNERAL HOME MAKEUP ARTIST [address] [place] [address], [address] [phone] [place] [address] [place] [address] [place] [address] 779267 09/19/2023 10:00 AM CDT Appointment [facility] [address] [place] [phone] Maria Dolores Del Real APRN, DISTRICT SALES COORDINATOR [address] Guevar[place] [address] [place] [address] [phone] 09/19/2023 11:00 AM CDT Appointment [facility] [address] [place] [address], [address] [place] [phone] Shaggy Smith MD [address] [place] [address] [place] [address] [place] 447[address] 10/13/2023 9:00 AM CDT Appointment [facility]-FUNERAL HOME MAKEUP ARTIST [address] [place] [address], [address] [phone] Maria Dolores Del Real, FORENSIC SOCIAL WORKER, DISTRICT SALES COORDINATOR [address] [place] [address] documented as of this encounter Visit Diagnoses Not on filedocumented in this encounter Care Teams Meter Readers Supervisor Relationship Specialty [place] [address] [place] [address] PCP - General Family Practice 11/03/20 documented as of this encounter
--- OUTSIDE RECORDS SUMMARY | 2023-09-08 23:12 | XMS_ITS | Encounter Summary ---
Author Organization [employer] Address [address] [address] Care Team Providers Care Cafe Server Name Role Phone Randal Joe MD Primary Care Provider [phone] Reason for Visit * Reason Comments Medication Questions Encounter Details Date Type Department Care Team (Late st Contact Info) Description 07/22/2023 Telephone [facility]-POWERHOUSE LABORER [address] [facility], [address] [phone] Maria Dolores Del Real, ENDOSCOPY SUPPORT SPECIALIST, GARNISHER [address] [facility] [address] [place] [address] Medication Questions Social History Tobacco [...] of this encounter Nursing Notes * Radha Lund, RN - 07/22/2023 1:20 PM CDT Called pt and read providers note to her. Pt verbalized understanding. * Maria Dolores Del Real APRN, CNP - 07/22/2023 1:03 PM CDT I recommend the Sliquid brand - can purchase through [employer] or on [facility]. * Carin Root RN - 07/22/2023 12:53 PM CDT 38 y.o. currently 11w6d wondering if there is a specific vaginal lubricant provider would recommendor avoid during . *Call or can send My Chart msg documented in this encounter Plan of Treatment Upcoming Encounters Date Type Department Care Team (Late st Contact Info) Description 09/12/2023 3:20 PM CDT Appointment [facility]-POWERHOUSE LABORER [address] [place] [address], [address] [phone] [place] [address] Guevar[address] [place] [address] 732647 09/19/2023 10:00 AM CDT Appointment [facility] [address] [place] [address], [address] [phone] Maria Dolores Del Real APRN, GARNISHER [address] Guevar[place] [address] [place] [address] 09/19/2023 11:00 AM CDT Appointment [facility] [address] [place] [address], [address] [place] [phone] Shaggy Smith MD [address] [place] [address] 275 [facility] [place], [place] [address] 10/13/2023 9:00 AM CDT Appointment [facility]-POWERHOUSE LABORER [address] [facility], [email or web address] [address] [place] [phone] Maria Dolores Del Real APRN, GARNISHER [address] [address] [place], [place] [phone] documented as of this encounter Visit Diagnoses Not on filedocumented in this encounter Care Teams Cafe Server Relationship Specialty [place] [address] [place] [address] PCP - General Family Practice 11/03/20 documented as of this encounter
--- OUTSIDE RECORDS SUMMARY | 2023-09-08 23:12 | XMS_ITS | Encounter Summary ---
Author Organization [facility] Address [address], [place] [address] Care Team Providers Care Strike Out Machine Operator Name Role Phone Randal Joe MD Primary Care Provider [phone] Reason for Visit * Reason Comments Forms Encounter Details Date Type Department Care Team (Late st Contact Info) Description 07/26/2023 Telephone [facility]-CO FOUNDER AND PRESIDENT [address] [phone] Maria Dolores Del Real, INDUSTRIAL EQUIPMENT WIRER, ADDICTION PROFESSIONAL [address] [facility] [address] [place] [address] Forms Social History Tobacco Use [...] encounter Nursing Notes * Dyan Townsend - 07/27/2023 8:25 AM CDT Forms updated per , refaxed to [employer], and sent to [employer]. Copy in pt pickup. Patient has appointment with Dr. Vo today 07/26. Will forward restrictions onto her for awareness. * Minoo Brumfield - 07/26/2023 1:29 PM CDT Called patient, reviewed provider's note regarding nausea medications. Patient verbalizes understanding. Reviewed forms would be re-submitted by staff with dates listed below per provider. * Maria Dolores Del Real APRN, CNP - 07/26/2023 1:17 PM CDT Frontline - Intermittent leave for up to 5 hours per week. Start date of NOB1 and end date 09/17/2023 (not due date). Thanks! contamination consultant - please let patient know that she needs to be in touch with the clinic if her phenergan isn't helping so we can switch to a different medication. Thanks! * Minoo Brumfield - 07/26/2023 11:06 AM CDT Patient calling stating forms completed by provider did not include a start and end date for the intermittent leave. States form needs a window with date range to be covered. Has missed work for appointments, and illness (nausea/vomiting during early ), and this leave would cover these ab sences. Continues to have mornings where experiences nausea and vomiting and cannot work. Thought paperwork was completed for intermittent leave, but found out today is close to being terminated for missing too many days. This has caused patient increased stress. States needs provider to provide a start and end date for the window for intermittent leave. documented in this encounter Plan of Treatment Upcoming Encounters Date Type Department Care Team (Late st Contact Info) Description 09/12/2023 3:20 PM CDT Appointment [facility]-CO FOUNDER AND PRESIDENT [address] [place] [phone] Miranda Metzger, [address] [address] [phone] 09/19/2023 10:00 AM CDT Appointment [facility] [address] [place] [phone] Maria Dolores Del Real INDUSTRIAL EQUIPMENT WIRER, ADDICTION PROFESSIONAL [address] Guevara [address] [place] [address] [phone] 09/19/2023 11:00 AM CDT Appointment [facility] [address] [place] [address] [phone] Shaggy Smith MD [address] [place] [address] [phone] 10/13/2023 9:00 AM CDT Appointment [facility]-CO FOUNDER AND PRESIDENT [address] [place] [address] [phone] Maria Dolores Del Real INDUSTRIAL EQUIPMENT WIRER, ADDICTION PROFESSIONAL [address] Guevar[place] [address] [place] [address] [phone] documented as of this encounter Visit Diagnoses Not on filedocumented in this encounter Care Teams Strike Out Machine Operator Relationship Specialty [place] [address] [place] [address] PCP - General Family Practice 11/03/20 documented as of this encounter
--- OUTSIDE RECORDS SUMMARY | 2023-09-08 23:12 | XMS_ITS | Encounter Summary ---
Author Organization [employer] Address [address] [address] Care Team Providers Care Demolition Expert Name Role Phone Randal Joe MD Primary Care Provider [phone] Encounter Details Date Type Department Care Team (Late st Contact Info) Description 08/04/2023 9:00 AM CDT Lab Visit [facility] [id number] [place] [address], [facility] [address] [place] [address] Urinary frequency Social History Tobacco Use Types Packs/Day Years [...] Info) Description 09/12/2023 3:20 PM CDT Appointment [facility]-ELECTRICAL EXPERIMENTAL MECHANIC [address] [facility], [address] [place] [phone] [place] [address] Guevara Mason [place], [place] [phone] 09/19/2023 10:00 AM CDT Appointment [facility] [address] [place] [address] [phone] Maria Dolores Del Real, SEAM STAYER, GERMAN PROFESSOR [address] [place] [address] Dr Guevara Mason [place], [place] [phone] 09/19/2023 11:00 AM CDT Appointment [facility] [address] [place] [address] [phone] Shaggy Smith MD [address] [place] [address] [phone] 10/13/2023 9:00 AM CDT Appointment [facility]-ELECTRICAL EXPERIMENTAL MECHANIC [address] [place] [address] [phone] Maria Dolores Del Real, SEAM STAYER, GERMAN PROFESSOR [address] [place] [address] Dr Guevara Mason [place], [place] [phone] documented as of this encounter Procedures Procedure Name Priority Date/Time Associated Diagnosis Comments URINALYSIS ROUTINE, MICRO/CULTURE IF POS Routine 08/04/2023 9:07 AM CDT Urinary frequency documented in this encounter Results * (ABNORMAL) Urinalysis Routine, Micro/Culture if Pos: Clean Catch (08/04/2023 9:07 AM CDT) Urine Culture Comment Urinalysis results do not meet criteria for urine culture reflex. 08/04/2023 5:39 PM CDT [facility] Urine Color Yellow 08/04/2023 5:39 PM [facility] Urine Clarity Hazy(A) Clear 08/04/2023 5:39 PM [facility] Specific [place], Urine 1.025 1.005 - 1.030 08/04/2023 5:39 PM [facility] PH Urine 6.5 5.0 - 8.0 08/04/2023 5:39 PM [facility] Protein, Urine Qual (mg/dL) Negative Neg/Trace 08/04/2023 5:39 PM [facility] Glucose Urine Qual (mg/dL) Negative Negative 08/04/2023 5:39 PM [facility] Ketones, Urine (mg/dL) Negative Negative 08/04/2023 5:39 PM [facility] Urobilinogen, Urine (EU/dL) 0.2 <2.0 08/04/2023 5:39 PM [facility] Bilirubin Urine Negative Negative 08/04/2023 5:39 PM [facility] Blood, Urine Negative Neg/Trace 08/04/2023 5:39 PM [facility] Nitrite Urine Negative Negative 08/04/2023 5:39 PM [facility] Leukocyte Est. Negative Negative 08/04/2023 5:39 PM [facility] Urine Source Clean Catch 08/04/2023 5:39 PM [facility] Urine URINE SPECIMEN COLLECTION, CLEAN CATCH / Unknown Non-blood Collection / Unknown 08/04/2023 9:07 AM CDT 08/04/2023 9:07 AM T Sofiya Vo MD LAB_1 [facility] [address] [place] [address], [facility] [address] [place] [phone] documented in this encounter Visit Diagnoses Diagnosis Urinary frequency documented in this encounter Care Teams Demolition Expert Relationship Specialty [place] [address] [place] [address] PCP - General Family Practice 11/03/20 documented as of this encounter
--- OUTSIDE RECORDS SUMMARY | 2023-09-08 23:12 | XMS_ITS | Encounter Summary ---
Author Organization [employer] Address [address] [address] Care Team Providers Care Associate Professor Of Mathematics Name Role Phone Randal Joe MD Primary Care Provider [phone] Reason for Visit * Reason Comments Follow-up Encounter Details Date Type Department Care Team (Late st Contact Info) Description 07/21/2023 11:45 AM CDT Routine [facility]-CARD BOXER [address] [phone] Maria Dolores Del Real, TELEPHONE CLERK TELEGRAPH OFFICE, MACHINE GREASER [address] [place] [address] Follow-up Social History Tobacco Use Types Packs/Day Years [...] Sign Reading Time Taken Comments Blood Pressure 113/56 07/21/2023 11:28 AM CDT Pulse 71 07/21/2023 11:28 AM CDT Temperature - - Respiratory Rate - - Oxygen Saturation - - Inhaled Oxygen Concentration - - Weight 83.6 kg (184 lb 3.2 oz) 07/21/2023 11:28 AM CDT Height 171.5 cm (5' 7.5) 07/21/2023 11:28 AM CD T Body Mass Index 28.42 07/21/2023 11:28 AM CDT documented in this encounter Patient Instructions * Patient Instructions* Maria Dolores Del Real APRN, MACHINE GREASER - 07/21/2023 11:45 AM CDT Images from the original note were not included. Thank you for choosing us for your care. You will receive 3 books throughout your starting with Your Guide to . We recommend you review the following information in this book: Testing Genetic Testing How Your Body Changes Making Good Choices Six Steps to a Healthy How Babies Grow and Change To learn about the screening available for specific inherited diseases including cystic fibrosis and spinal muscular atrophy, see our handout on Genetic Disease Carrier Screening: https://Tangler/49208.pdf Drinking any amount of alcohol during is not safe. Watch this short video by [employer] [place] [employer]: Proof: Some Think Drinking During is OK. It???s Not. - Ronda video Marijuana use is never recommended while or . Learn why here: https://Tangler/16717.pdf is a time of transition. If you feel overwhelmed, anxious or depressed, see the followingresources: Emotional Distress During and After : https://Tangler/95466.pdf Resources & Support for New & Expecting Parents: https://Tangler/59900.pdf The 3 books provided throughout are also available digitally. Here are the links to each book: Your Guide to : https://user-1mbmgix.Vanna's Vanity.bz/ZcbwngQqfnkpjz-Eauh-Myfnh-hx-u-Xisimho- Preparing for Childbirth: https://user-1mbmgix.cld.bz/SssnvbPeyuleiy-Rft-Vsbr-of-Motherhood Taking Care of You and Your [place]: https://user-1mbmgix.cld.bz/YpsnluUdjnhwri-W-Jqm-Beginning White for our free herb called ???myHealthyPregnancy?? powered by [employer]. The herb offers many quick articles and videos on , labor, , , and newborncare. Find instructions here: Or click on this link: myHealthyPregnancy tracker herb [facility] In [place], soon-to-be, new, and nursing parents have legal protections to help keep them safe and healthy in the workplace. Find more information here: Or click on this link: Workers And New Parents Constipation in The same hormones that help [...] using stimulant laxatives frequently or on a custodial basis. Laxatives can make your bowels more sluggish over time. Nausea and Vomiting in Many women have some nausea (and possibly vomiting) in early . If you have tried the usualremedies and are still having trouble eating at all, or keeping it down once you do eat, here are some suggestions: Take your vitamin at bedtime. If you are unable to tolerate your vitamin, take 400 mg of folic acidevery day. Women who take vitamins before and in early , have less nausea and vomiting. Try Emetrol (fructose, dextrose and phosphoric acid anti-nausea drink). Keep it cold in the refrigerator and sip it as needed to control feelings of nausea. You may also try flavored sports drinks orPedialyte. Acupressure wrist bands (brand name [employer]Ceon) may help reduce the feelings of nausea without medication. The wrist bands are worn throughout the day. For extra relief, apply more pressure to the button part of the band. You may also do some slow breathing and relaxation exercises. Acupuncture is another option. Your clinician can make a referral to an pet stylist if you find the wrist bands are helping but you need more help controlling your symptoms. Many cultures have used jefferson to control nausea over the centuries. Jefferson may be included in: Food. Be sure to check the label to be sure jefferson is an ingredient and not simply jefferson flavor. Tea. Soak fresh jefferson slices in boiling water for 10 minutes, strain and add honey and/lemon to taste. Supplements. You may take a jefferson supplement in capsule form. Take 250 mg, 4 times a day. Other jefferson products. Many are available, including a jefferson gum from [employer]. Pyridoxine (Vitamin B6) is a water-soluble B-complex vitamin that has been shown to reduce nausea. You can take 10-25 mg every 6-8 hours. It can be taken alone or with 12.5 mg doxylamine succinate, (1/2 tablet of Unisom). If Unisom makes you too sleepy for day time, consider taking it when you are home at the end of the day. Diphenhydramine (Benadryl 25-50 mg every 6 hours) or Meclizine (Dramamine or Bonine 25 mg every 6 hours) are all effective at controlling nausea and vomiting. They will however, make you sleepy. You should not take these unless you are prepared to be home and be able to sleep. Caution. The traditional remedy of Nzu (sold under the brand name of Beaver Anam) may have high levels of lead and/or arsenic and should be avoided. It is also known as Beaver Chalk, Calabar Stone, Mabele, Argile or La Craie. If you have tried these remedies and continue to have any of the following symptoms, call your clinic or the [facility] phone service if you are: Unable to eat, or you are vomiting every day Urinating less than usual or have dark yellow urine (bright yellow urine may simply be discoloration from your vitamins) Feeling dizzy when you stand up Losing weight documented in this encounter Progress Notes * Maria Dolores Del Real APRN, CNP - 07/21/2023 11:45 AM CDT [facility] CC: ED F/up for nausea in S: Alisia is a 38 y.o. at 11w5d who presents by herself. She presented to the ED on 07/15 with constipation, rectal pain, and bloating. She received an enema,had a large BM, and her symptoms improved. She was instructed to use MiraLAX daily for 1 week and increase water intake. She then presented to the ED on 07/17 with worsening nausea and vomiting and abdominal pain. Tried previously prescribed Phenergan with no relief. Reported that she used to sleep walk and ingest inedible items and she was concerned she may have done this. Evaluation unremarkable. She was prescribed Pepcid. Today she reports she feels better now. Continues to have intermittent nausea and some dry heaves. No more emesis. Picks at food throughout the day but has a hard time eating full meals. Concerned that she is harming her baby because she has lost some weight since her last visit. Phenergan is now helping and she has refills available. complications: - AMA - REJI O: LMP 04/30/2023 (Exact Date) Gen: alert, oriented, NAD Abd: gravid, soft, non-tender, no HSM or rash BSUS: SIUP with FHR 160 bpm See OB flowsheet. A/P: 38 y.o. at 11w5d based on LMP c/w 6w1d US presenting for nausea in . Nausea: - Continue Phenergan - Recommend bland diet GERD: - Continue Pepcid - Avoid dietary triggers Constipation: - Continue MiraLAX Care: - OB labs reviewed: Blood type: A pos Rubella: immune HIV: negative Hep B Ag: negative Treponema: negative - Genetics: NIPS low risk, NT scheduled 07/31 - Anatomy ultrasound: L2 scheduled 09/18 - Continue taking vitamins RTC for NOB2 as scheduled. Maria Dolores Del Real APRN, CNP * Rachel Allen LPN - 07/21/2023 11:45 AM CDT Patient's nausea and vomiting objectively assessed through patient's responses to the Modified Unique Quantification of Emesis (PUQE) score: On an average day, for how long do you feel nauseated or sick to your stomach? >6 hours (5 points) On an average day, how many times do you vomit or throw up? None (1 point) On an average day, how many times do you have retching or dry heaves without bringing anything up? 1-2 (2 points) PUQE Scorin-12- Moderate nausea and vomiting documented in this encounter Plan of Treatment Upcoming Encounters Date Type Department Care Team (Late st Contact Info) Description 09/12/2023 3:20 PM CDT Appointment [facility]-CARD BOXER [address] [facility], [address] [place] [address] [place] [address] [address] [place], [place] [phone] 09/19/2023 10:00 AM CDT Appointment [facility] [address] [place] [address] [address] [place] [phone] Maria Dolores Del Real APRN, CNP [address] [place] [address] Ismael Cuevas [place], [place] [phone] 09/19/2023 11:00 AM CDT Appointment [facility] [address] [place] [address] [phone] Shaggy Smith MD [address] [place] [address] [phone] 10/13/2023 9:00 AM CDT Appointment [facility]-CARD BOXER [address] [place] [address] [phone] Maria Dolores Del Real APRN, CNP [address] [place] [address] Ismael Cuevas [place], [place] [phone] documented as of this encounter Procedures Procedure Name Priority Date/Time Associated Diagnosis Comments OB CLINIC ULTRASOUND LIMITED Routine 07/21/2023 Nausea/vomiting in documented in this encounter Results * OB CLINIC ULTRASOUND LIMITED (07/21/2023) Anatomical Region Laterality Modality Other Impressions 07/21/2023 SIUP Cephalic presentation Gross movement visualized FHR 160 bpm Maria Dolores Del Real APRN, CNP PN CLINIC US ORDERABLES documented in this encounter Visit Diagnoses Diagnosis Nausea/vomiting in - Primary Unspecified vomiting of , unspecified as to episode of care documented in this encounter Care Teams Associate Professor Of Mathematics Relationship Specialty [place] [address] [place] [address] PCP - General Family Practice 11/03/20 documented as of this encounter
--- OUTSIDE RECORDS SUMMARY | 2023-09-08 23:12 | XMS_ITS | Encounter Summary ---
Author Organization [email or web address] Address [address], [place] [address] Care Team Providers Care Fire Extinguisher Mechanic Name Role Phone Randal Joe MD Primary Care Provider [phone] Reason for Visit * Reason Comments CHANGING APPOINTMENTS Encounter Details Date Type Department Care Team (Late st Contact Info) Description 08/04/2023 Telephone [facility]-FULLING MACHINE OPERATOR [address] [facility], [address] [phone] Maria Dolores Del Real, TUBE COATER, CURATORIAL SPECIALIST [address] [facility] [address] [place] [address] CHANGING APPOINTMENTS Social History Tobacco Use Types Packs/Day Years [...] Nursing Notes * Carin Root, RN - 08/04/2023 11:46 AM CDT 38 y.o. currently 13w5d seen today but did not discuss her increasing anxiety during the .Also concerned because BSUS done today showed FHR 135 but states earlier US showed FHR in the 150's, very concerned there is something wrong. Advised FHR can change depending on gestation and activity. Still within normal range. Already has appointment scheduled for 08/07 with Maria Dolores to discuss anxiety but wants changed to in person appointment versus phone. Aware will likely need to start seeing BH or PCP for ongoing anxiety management. Future Appointments Provider Department Center 08/08/2023 2:15 PM Maria Dolores Del Real APRN, CURATORIAL SPECIALIST [facility]-FULLING MACHINE OPERATOR PN [facility] documented in this encounter Plan of Treatment Upcoming Encounters Date Type Department Care Team (Late st Contact Info) Description 09/12/2023 3:20 PM CDT Appointment [facility]-FULLING MACHINE OPERATOR [address] [facility], [address] [phone] [place] [address] [place] [address] G[address]vara [address] [place] [phone] 09/19/2023 10:00 AM CDT Appointment [facility] [address] [facility], [address] [phone] Maria Dolores De lReal APRN, CURATORIAL SPECIALIST [address] [place] [address] Guevara [address] [place] [address] 09/19/2023 11:00 AM CDT Appointment [facility] [address] [place] [address], [address] [place] [phone] Shaggy Smith MD [address] [place] [address] Dr Guevara [facility] [place] [address] 10/13/2023 9:00 AM CDT Appointment [facility]-FULLING MACHINE OPERATOR [address] [facility], [address] [place] [address] Maria Dolores Del Real, TUBE COATER, CURATORIAL SPECIALIST [address] [place] [address] [place] [address] documented as of this encounter Visit Diagnoses Not on filedocumented in this encounter Care Teams Fire Extinguisher Mechanic Relationship Specialty [place] [address] [place] [address] PCP - General Family Practice 11/03/20 documented as of this encounter
--- OUTSIDE RECORDS SUMMARY | 2023-09-08 23:12 | XMS_ITS | Encounter Summary ---
Author Organization [employer] Address [address], [place] [address] Care Team Providers Care Fig Washer Name Role Phone Randal Joe MD Primary Care Provider [phone] Encounter Details Date Type Department Care Team (Latest Contact Info) Description 07/27/2023 Orders Only [facility] DEPART[facility] Provider, [place] [address] Social History Tobacco Use Types Packs/Day Years [...] Info) Description 09/12/2023 3:20 PM CDT Appointment [facility]-FIRE CONTROL MECHANIC [address] [facility], [address] [place] [address] [place] [address] [place] [place] [address] [place], [place] [address] 09/19/2023 10:00 AM CDT Appointment [facility] [address] [place] [address] [phone] Maria Dolores Del Real, PARTS COUNTER CLERK, VETERINARY SURGERY TECHNOLOGIST [address] Guevar[address] [place], [place] [phone] 09/19/2023 11:00 AM CDT Appointment [facility] [address] [place] [address] [phone] Shaggy Smith MD [address] [place] [address] [phone] 10/13/2023 9:00 AM CDT Appointment [facility]-FIRE CONTROL MECHANIC [address] [place] [address] [phone] Maria Dolores Del Real, PARTS COUNTER CLERK, VETERINARY SURGERY TECHNOLOGIST [address] Guevara Mason [place], [place] [phone] documented as of this encounter Procedures Procedure Name Priority Date/Time Associated Diagnosis Comments ULTRASOUND AK 07/27/2023 documented in this encounter Results * ULTRASOUND SC (07/27/2023) Anatomical Region Laterality Modality Other Interface Provider MD DUMMY/OTHER/AR documented in this encounter Visit Diagnoses Not on filedocumented in this encounter Care Teams Fig Washer Relationship Specialty [place] [address] [place] [address] PCP - General Family Practice 11/03/20 documented as of this encounter
--- OUTSIDE RECORDS SUMMARY | 2023-09-08 23:12 | XMS_ITS | Encounter Summary ---
Author Organization [facility] Address [address], [place] [address] Care Team Providers Care Facilities Engineering Manager Name Role Phone Randal Joe MD Primary Care Provider [phone] Reason for Visit * Reason Comments Routine Visit Encounter Details Date Type Department Care Team (Late st Contact Info) Description 08/04/2023 8:30 AM CDT Routine [facility]-FARM LOAN REPRESENTATIVE [address] [phone] [place] [address] [address] Routine Visit Social History Tobacco Use Types [...] Sign Reading Time Taken Comments Blood Pressure 105/59 08/04/2023 8:28 AM CDT Pulse 81 08/04/2023 8:28 AM CDT Temperature - - Respiratory Rate - - Oxygen Saturation - - Inhaled Oxygen Concentration - - Weight 85 kg (187 lb 6.4 oz) 08/04/2023 8:28 AM CDT Height - - Body Mass Index 28.92 07/21/2023 11:28 AM CDT documented in this encounter Progress Notes * Sofiya Vo MD - 08/04/2023 8:30 AM CDTAddended by: SOFIYA VO on: 08/04/2023 09:11 AM Modules accepted: Orders * Sofiya Vo MD - 08/04/2023 8:30 AM CDT New Obstetrical Visit-Physician Note Chief Complaint/Reason for Visit: New OB #2 visit 13w5d HPI: Alisia Velasquez is a 38 y.o. female who presents to the clinic today for her second routine appointment. Patient's last menstrual period was 04/30/2023 (exact date). She is currently 13w5d with an Estimated Date of Delivery: 02/04/24 based on LMP. Her complaints today include: - states having had urinary frequency since last visit with me back in 07/27/23. She was found to have a negative UA. States she does not have any other sign or symptom. Wonders if this could be a UTIthat is hiding somehow in her duke and not showing on labs. Pt has REJI. complications: -AMA -REJI -migraines -prolonged QT on ECG Current Outpatient Medications Medication Sig acetaminophen (TYLENOL) 325 MG tablet Take 1-2 Tablets (325-650 mg) by mouth. famotidine (PEPCID) 10 MG tablet Take 1 Tablet (10 mg) by mouth. vitamin-ferrous fumarate-folic acid (PRENATALPLUS) 27-1 MG tablet Take 1 Tablet by mouth daily. promethazine (PHENERGAN) 12.5 MG tablet Take 1-2 Tablets (12.5-25 mg) by mouth every 6 hours as needed for Nausea. OB History Para Term AB Living 3 0 0 0 2 0 SAB IAB Ectopic Multiple Live Births 1 1 0 0 0 # Outcome Date GA Lbr Ian/2nd Weight Sex Delivery Anes PTL Lv 3 Current 2 SAB 12/24/22 FD 1 IAB Obstetric Comments 12/2022- SAB/D&C Patient Active Problem List Diagnosis Panic disorder without agoraphobia Anxiety (HRC) Chronic migraine without aura without status migrainosus, not intractable Mild major depression (HRC) Seronegative arthritis Vitamin D deficiency (HRC) Prolonged Q-T interval on ECG Supervision of high risk in first trimester Primigravida of advanced maternal age in first trimester Subchorionic hematoma in first trimester Nausea/vomiting in Review of Systems: Remaining 11 point review of systems is negative except as stated in HPI. Physical Exam: BP 105/59 (BP Location: Right Arm, BP Cuff Size: Regular) Pulse 81 Wt 187 lb 6.4 oz (85 kg) LMP 04/30/2023 (Exact Date) BMI 28.92 kg/m?? general: alert & oriented, no acute distress soft, nontender, nondistended, no abnormal masses, no epigastric pain and FHT present Labs: Reviewed Yes BSUS - transverse mobile, cardiac activity of 135 bpm Assessment:38 y.o. female @ 13w5d by LMP with Estimated Date of Delivery: 02/04/24. No diagnosis found. Plan: Routine care -Patient was oriented to the [facility] System. -General patient counseling provided including: Genetic screening options- including First Trimester Screening and Quad Marker Screening for all women discussed. Additionally, NIPT and diagnostic options for women 35 and older reviewed. Supplements recommended- daily Vitamin, Vitamin D, and [place]-3 Diet and Nutrition- Nausea and vomiting relief measures reviewed. [place] program information discussed Weight gain recommendations during - If BMI 25-29.9 recommended weight gain 15-25# Benefits of exercise during and encouraged regular physical activity. Goal for 150 min per week (30 min X 5 days a week) Sexual activity during discussed. Avoid use of alcoholic beverages, smoking and recreational drugs. Environmental and work considerations and overall lifestyle choices in , including seatbelt use, risk of toxoplasmosis (including sources and infection prevention). feeding plans: breast. Encouraged to review benefits of in NOB book provided. Reviewed schedule of care - Genetic screening: NIPS LR, boy MSAFP: 16-18 wks rajesh consider at next office visit - New OB labs: Rh neg, HIV/RPR neg, HepB Ag NR, Rubella immune, Hep C ab neg - Anatomy ultrasound: level 2 with MFM; posterior placenta, inferior margin of placenta at the cervical canal. Next anatomy scan scheduled on 09/19/23 - 2nd trimester labs: to be ordered between 24-28 wks GA - Tdap at 28 wk GA - GBS at 36 wks Urinary frequency - no other sings or symptoms - UA collected - reassured her that during it is NORMAL to have some urinary frequency and that in the absence of any other signs or symptoms this is most likely normal. Pt verbalized understanding She will return to see us in 4 weeks for a routine ob visit. Dr. Vo documented in this encounter Plan of Treatment Upcoming Encounters Date Type Department Care Team (Late st Contact Info) Description 09/12/2023 3:20 PM CDT Appointment [facility]-FARM LOAN REPRESENTATIVE [address] [facility], [address] [place] [phone] [place] [address] [place], [place] [address] 09/19/2023 10:00 AM CDT Appointment [facility] [address] [facility], [facility] [address] [place] [phone] Maria Dolores Del Real APRN, RAPIER INSERTION LOOM FIXER [address] [place] [address] 09/19/2023 11:00 AM CDT Appointment [facility] [address] [facility], [address] [place] [address] Shaggy Smith MD [address] [facility] [address]var[address] [facility] [place] [address] 10/13/2023 9:00 AM CDT Appointment [facility]-FARM LOAN REPRESENTATIVE [address] [facility], [address] [place] [address] Maria Dolores Del Real, COOK MAYONNAISE, RAPIER INSERTION LOOM FIXER [address] [place] [address] Scheduled Orders Name Type Priority Associated Diagnoses Orde r Schedule OB CLINIC ULTRASOUND LIMITED Imaging New Routine 13 weeks gestation of Ordered: 08/04/2023 documented as of this encounter Results * (ABNORMAL) Urinalysis Routine, Micro/Culture if Pos: Clean Catch (08/04/2023 9:07 AM CDT) Urine Culture Comment Urinalysis results do not meet criteria for urine culture reflex. 08/04/2023 5:39 PM [facility] Urine Color Yellow 08/04/2023 5:39 PM [facility] Urine Clarity Hazy(A) Clear 08/04/2023 5:39 PM [facility] Specific [place], Urine 1.025 1.005 - 1.030 08/04/2023 5:39 PM [facility] PH Urine 6.5 5.0 - 8.0 08/04/2023 5:39 PM [facility] Protein, Urine Qual (mg/dL) Negative Neg/Trace 08/04/2023 5:39 PM [facility] Glucose Urine Qual (mg/dL) Negative Negative 08/04/2023 5:39 PM [facility] Ketones, Urine (mg/dL) Negative Negative 08/04/2023 5:39 PM [facility] Urobilinogen, Urine (EU/dL) 0.2 <2.0 08/04/2023 5:39 PM [facility] Bilirubin Urine Negative Negative 08/04/2023 5:39 PM [facility] Blood, Urine Negative Neg/Trace 08/04/2023 5:39 PM CDT [facility] Nitrite Urine Negative Negative 08/04/2023 5:39 PM T [facility] Leukocyte Est. Negative Negative 08/04/2023 5:39 PM CDT [facility] Urine Source Clean Catch 08/04/2023 5:39 PM CDT [facility] Urine URINE SPECIMEN COLLECTION, CLEAN CATCH / Unknown Non-blood Collection / Unknown 08/04/2023 9:07 AM CDT 08/04/2023 9:07 AM CDT Sofiya Vo MD LAB_1 [facility] [address] [place] [address] [address] [place] [phone] documented in this encounter Visit Diagnoses Diagnosis Supervision of high risk in first trimester- Primary Unspecified high-risk Urinary frequency Anxiety (HRC) Anxiety state, unspecified 13 weeks gestation of state, incidental documented in this encounter Care Teams Facilities Engineering Manager Relationship Specialty [place] [address] [place] [address] PCP - General Family Practice 11/03/20 documented as of this encounter
--- OUTSIDE RECORDS SUMMARY | 2023-09-08 23:12 | XMS_ITS | Encounter Summary ---
Author Organization [email or web address] Address [address], [place] [address] Care Team Providers Care Manager Photography Name Role Phone Randal Joe MD Primary Care Provider [phone] Reason for Visit * Reason Comments Medication Questions Encounter Details Date Type Department Care Team (Late st Contact Info) Description 08/09/2023 Telephone [facility]-RADIO MECHANIC HELPER [address] [facility] [address] [place] [address] [place] [address] [facility] [address] [place] [address] Medication Questions Social History Tobacco [...] encounter Nursing Notes * Minoo Brumfield - 08/10/2023 2:25 PM CDT Called patient, reviewed provider's note below. Patient verbalizes understanding and agrees with plan. State started medication last night and was relieved as did not experience any negative side effects. * Sofiya Vo MD - 08/10/2023 2:11 PM CDT Ok to start baby ASA. Ok to use her preferred brand (with coating). It is safe to take bASA in her currentl clinical scenario. Thanks AA * Carin Root RN - 08/09/2023 3:00 PM CDT Calling to follow up. Advised provider is in clinic but seeing patients. Will respond as soon as she is able. * Carin Root, JOSUÉ - 08/09/2023 11:10 AM CDT Patient calling back with another question: She is supposed to start ASA but hasn't yet d/t her concerns of her GERD. Currently taking Pepcid but has a lot of stomach issues and worried that adding low dose ASA will make things worse. If provider still advises she take ASA, can she use Zabrina low dose ASA that has safety coating to hopefully minimize gastric problems. * Minoo Brumfield - 08/09/2023 11:05 AM CDT Patient calling with questions about starting ASA 81 mg tablet. States was told at initial visit tostart this after 12 weeks, but this was not reviewed at subsequent visits. Wants to double check before starting. Nervous to start ASA due to history of adverse/anaphylactic reactions with other medications. Wantsto make sure is doing the safest thing for self and baby. States BP has always been low. Also wondering if there is concerns about taking a blood thinner and prior history of early bleeding. Patient states is scared with taking new medication and wants reassurance and guidance from provider. Routed to provider to advise. documented in this encounter Plan of Treatment Upcoming Encounters Date Type Department Care Team (Late st Contact Info) Description 09/12/2023 3:20 PM CDT Appointment [facility]-RADIO MECHANIC HELPER [address] [place] [phone] [place]ger [place] [address] [place] [address] Dr [address] [place] [phone] 09/19/2023 10:00 AM CDT Appointment [facility] [address] [place] [phone] Maria Dolores Del Real, PLUMBING HARDWARE ASSEMBLER, THREAD CLIPPER [address] [place] [address] Dr [address] [place], [place] [phone] 09/19/2023 11:00 AM CDT Appointment [facility] [address] [place] [phone] Shaggy Smith MD [address] [place] [address] [place] [address] [place], [place] [address] 10/13/2023 9:00 AM CDT Appointment [facility]-RADIO MECHANIC HELPER [address] [place] [phone] Maria Dolores Del Real APRN, THREAD CLIPPER [address] [place] [address] Dr [address]z [place], [place] [phone] documented as of this encounter Visit Diagnoses Not on filedocumented in this encounter Care Teams Manager Photography Relationship Specialty [place] [address] [place] [address] PCP - General Family Practice 11/03/20 documented as of this encounter
--- OUTSIDE RECORDS SUMMARY | 2023-09-08 23:12 | XMS_ITS | Encounter Summary ---
Author Organization [facility] Address [address] [address] Care Team Providers Care Senior It Architect Name Role Phone Randal Joe MD Primary Care Provider [phone] Reason for Visit * Reason Comments QUESTIONS, GENERAL Entered automaticall y based on patient selection in [employer]. Encounter Details Date Type Department Care Team (Late st Contact Info) Description 07/13/2023 11:55 AM CDT E-Visit [facility]-DRESS CAP MAKER [address] [facility], [facility] [address] [place] [address] Maria Dolores Del Real, AIR CONDITIONING MANAGER, PRETZEL TWISTER [address] [facility] Ismael [address] [place] [address] Chief Comp: QUESTIONS, GENERAL Social History Tobacco Use Types Packs/Day Years [...] Info) Description 09/12/2023 3:20 PM CDT Appointment [facility]-DRESS CAP MAKER [address] [place] [address] [phone] Miranda [place] [address] [place] [address] [place] [address] 09/19/2023 10:00 AM CDT Appointment [facility] [address] [place] [address] [phone] Maria Dolores Del Real, AIR CONDITIONING MANAGER, PRETZEL TWISTER [address] Guevara [address] [place] [phone] 09/19/2023 11:00 AM CDT Appointment [facility] [address] [place] [address] [address] [place] [phone] Shaggy Smith MD [address] [place], [place] [address], [place] [address] 10/13/2023 9:00 AM CDT Appointment [facility]-DRESS CAP MAKER [address] [place] [address] [phone] Maria Dolores Del Real AIR CONDITIONING MANAGER, PRETZEL TWISTER [address] Guevara [address] [place] [address] [phone] documented as of this encounter Visit Diagnoses Not on filedocumented in this encounter Care Teams Senior It Architect Relationship Specialty [place] [address] [place] [address] PCP - General Family Practice 11/03/20 documented as of this encounter
--- OUTSIDE RECORDS SUMMARY | 2023-09-08 23:12 | XMS_ITS | Encounter Summary ---
Author Organization [facility] Address [address], [place] [address] Care Team Providers Care Computer Operations Specialist Name Role Phone Randal Joe MD Primary Care Provider [phone] Reason for Visit * Procedure/Equipment (Routine) - Incomplete Specialty Diagnoses / Procedures Referred By Contac t Referred To Contact Diagnoses Supervision of high risk in first trimester Primigravida of advanced maternal age in first trimester Procedures MFM US OB First Trimester Ultrasound Maria Dolores Del Real APRN, ROD PLACER [address] [address] [place] [id number] Referral ID Status Reason Start Date Expiration Date V isits Requested Visits Authorized [id number] Incomplete 07/30/2023 10/28/2024 1 1 Encounter Details Date Type Department Care Team (Late st Contact Info) Description 08/01/2023 8:30 AM CDT Ancillary Procedure [facility] [address] [facility], [address] [place] [address] Maria Dolores Del Real APRN, ROD PLACER [address] [address] [place] [address] Supervision of high risk in first trimester; Primigravida of advanced maternal age in first trimester Social History Tobacco Use Types Packs/Day Years [...] Info) Description 09/12/2023 3:20 PM CDT Appointment [facility]-TABLE FILLER [address] [place] [phone] [place] [address] Guevara [address] [place] [phone] 09/19/2023 10:00 AM CDT Appointment [facility] [address] [place] [address] [phone] Maria Dolores Del Real, ELECTRICAL MECHANICAL TECHNICIAN, ROD PLACER [address] Guevara [address] [place] [address], [place] [phone] 09/19/2023 11:00 AM CDT Appointment [facility] [address] [place] [address] [place] [phone] Shaggy Smith MD [address] [place] [address] [place] [phone] 10/13/2023 9:00 AM CDT Appointment [facility]-TABLE FILLER [address] [place] [address] [phone] Maria Dolores Del Real APRN, ROD PLACER [address] [place] [address] Dr Ismael [address] [place], [place] [address] documented as of this encounter Procedures Procedure Name Priority Date/Time Associated Diagnosis Comments [facility] US OB FIRST TRIMESTER Routine 08/01/2023 8:59 AM CDT Supervision of high risk in first trimester Primigravida of advanced maternal age in first trimester documented in this encounter Results * [facility] US OB First Trimester Ultrasound (08/01/2023 8:59 [...] the original result were not included. ?? [facility] [address] [facility], [address] [place] [address] Dept Dept Patient Name: Alisia Velasquez ??Referred By: Attending: Maria Dolores Del Real APRN, SEBASTIÁN Smith MD Patient ??Print Cutter: Dorothy AMBROSE, Age: 4 1985, 38 y.o. ??[place] Prior [...] grossly normal Nasal Bone appears normal ??Cardiac [place] appears normal Maxilla appears normal ??3 Vessel [...] still recommended. ?? Maria Dolores Del Real ELECTRICAL MECHANICAL TECHNICIAN, ROD PLACER RAD MFM US documented in this encounter Visit Diagnoses Diagnosis Supervision of high risk in first trimester Unspecified high-risk Primigravida of advanced maternal age in first trimester documented in this encounter Care Teams Computer Operations Specialist Relationship Specialty [place] [address] [place] [address] PCP - General Family Practice 11/03/20 documented as of this encounter
--- OUTSIDE RECORDS SUMMARY | 2023-09-08 23:12 | XMS_ITS | Encounter Summary ---
Author Organization [facility] Address [address] [place] [address] Care Team Providers Care Mental Health Associate Name Role Phone Randal Joe MD Primary Care Provider [phone] Encounter Details Date Type Department Care Team (Late st Contact Info) Description 08/12/2023 E-Visit [facility]-OFFICE CASHIER [address] [facility], [facility] [address] [place] [address] [place] [address] Social History Tobacco Use Types Packs/Day Years [...] Info) Description 09/12/2023 3:20 PM CDT Appointment [facility]-OFFICE CASHIER [address] [place] [address] [phone] [place] [address] Guevara Mason [place], [place] [address] 09/19/2023 10:00 AM CDT Appointment [facility] [address] [place] [address] [phone] Maria Dolores Del Real, OIL RAG WASHER, SPACE SYSTEMS OPERATIONS MANAGER [address] [place] [address] Ismael Cuevas [place], [place] [phone] 09/19/2023 11:00 AM CDT Appointment [facility] [address] [place] [address] [phone] Shaggy Smith MD [address] [place] [address]109 10/13/2023 9:00 AM CDT Appointment [facility]-OFFICE CASHIER [address] [place] [address] [phone] Maria Dolores Del Real, OIL RAG WASHER, SPACE SYSTEMS OPERATIONS MANAGER [address] [place] [address] Ismael Mason [place], [place] [phone] documented as of this encounter Visit Diagnoses Not on filedocumented in this encounter Care Teams Mental Health Associate Relationship Specialty [place] [address] [place] [address] PCP - General Family Practice 11/03/20 documented as of this encounter
--- OUTSIDE RECORDS SUMMARY | 2023-09-08 23:12 | XMS_ITS | Encounter Summary ---
Author Organization [employer] Address [address] [address] Care Team Providers Care Digital Marketing Associate Name Role Phone Randal Joe MD Primary Care Provider [phone] Encounter Details Date Type Department Care Team (Latest Contact Info) Description 08/04/2023 Orders Only [facility] DEPART[facility] Provider, [place] [address] Social History Tobacco Use Types Packs/Day Years [...] Info) Description 09/12/2023 3:20 PM CDT Appointment [facility]-TIN PLATER [address] [facility], [address] [place] [address] [place] [address] [address] [place], [place] [address] 09/19/2023 10:00 AM CDT Appointment [facility] [address] [place] [address] [phone] Maria Dolores Del Real, CHAIN SAW DRIVER, CURRICULUM FACILITATOR [address] Guevara [place], [place] [address] 09/19/2023 11:00 AM CDT Appointment [facility] [address] [place] [address] [phone] Shaggy Smith MD [address] [place] [address] [phone] 10/13/2023 9:00 AM CDT Appointment [facility]-TIN PLATER [address] [place] [address] [phone] Maria Dolores Del Real, CHAIN SAW DRIVER, CURRICULUM FACILITATOR [address] Guevara Mason [place], [place] [address] documented as of this encounter Procedures Procedure Name Priority Date/Time Associated Diagnosis Comments ULTRASOUND RI 08/04/2023 documented in this encounter Results * ULTRASOUND SC (08/04/2023) Anatomical Region Laterality Modality Other Interface Provider MD DUMMY/OTHER/AR documented in this encounter Visit Diagnoses Not on filedocumented in this encounter Care Teams Digital Marketing Associate Relationship Specialty [place] [address] [place] [address] PCP - General Family Practice 11/03/20 documented as of this encounter
--- OUTSIDE RECORDS SUMMARY | 2023-09-08 23:12 | XMS_ITS | Encounter Summary ---
Author Organization [employer] Address [address] [address] Care Team Providers Care Administrative Receptionist Name Role Phone Randal Joe MD Primary Care Provider [phone] Reason for Visit * Reason Comments BLEEDING, DURING Encounter Details Date Type Department Care Team (Late st Contact Info) Description 07/30/2023 Nurse Triage [facility] [address] [place] [address] [place] [address] [place] [address] BLEEDING, DURING Social History Tobacco Use Types Packs/Day Years [...] as of this encounter Nursing Notes * Aleida Avila RN - 07/30/2023 7:23 PM CDT Spoke to patient. Is 13 weeks . Is having some rust brown discharge that started today. Is present when she wipes only. Has seen a tiny bit of stringy brown but no pieces of tissue. Is havingsome on and off cramping in her abdomen and back but notes this has been going on during her and is not worse today- is not occurring during call. Has had spotting in the beginning on her pr egnancy when she had intercourse but none since then and has not had any recent intercourse. Care advice given including to call OB after the weekend about her spotting and advised to call back with any other questions- agrees to plan. Denies fever, severe or constant abdominal pain, passing ibrahim or white tissue. Problem list reviewed as related to this call. Reason for Disposition SPOTTING (single or brief episode) Protocols used: - Vaginal Bleeding Less Than 20 Weeks [id number] documented in this encounter Plan of Treatment Upcoming Encounters Date Type Department Care Team (Late st Contact Info) Description 09/12/2023 3:20 PM CDT Appointment [facility]-LABORATORY ASSOCIATE [address] [facility], [facility] [address] [place] [phone] [place] [address] [place] [address] 09/19/2023 10:00 AM CDT Appointment [facility] [address] [facility], [facility] [address] [place] [phone] Maria Dolores Del Real APRN, EDGE BANDER HAND [address]uevar[address] [place] [address] 09/19/2023 11:00 AM CDT Appointment [facility] [address] [place] [address], [address] [place] [phone] Shaggy Smith MD [address] [facility] [address] [place] [address] 10/13/2023 9:00 AM CDT Appointment [facility]LABORATORY ASSOCIATE [address] [facility], [address] [place] [phone] Maria Dolores Del Real APRN, EDGE BANDER HAND [address] [place] [address] documented as of this encounter Visit Diagnoses Not on filedocumented in this encounter Care Teams Administrative Receptionist Relationship Specialty [place] [address] [place] [address] PCP - General Family Practice 11/03/20 documented as of this encounter
--- OUTSIDE RECORDS SUMMARY | 2023-09-08 23:12 | XMS_ITS | Encounter Summary ---
Author Organization [employer] Address [address], [place] [address] Care Team Providers Care Rebeamer Name Role Phone Randal Joe MD Primary Care Provider Reason for Visit * Reason Comments Concerns Encounter Details Date Type Department Care Team (Late st Contact Info) Description 07/25/2023 Nurse Triage [facility]-SPECIALTY SALES CONSULTANT [address]997 [facility], [facility] 420 [place] [phone] Maria Dolores Del Real, LAMINATION INSPECTOR, DATA REVIEWER [address] Isma[address] [place] [address] Concerns Social History Tobacco Use [...] encounter Nursing Notes * Minoo Brumfield - 07/25/2023 10:50 AM CDT Reason for Disposition Normal vaginal discharge in Protocols used: - Vaginal Watephmak-OTQSF-WS Patient calling with concerns about missing a couple vitamins here and there due to nausea. Has tried taking different times and after meals, but still struggles with nausea. Reassurance provided if missing only a few vitamins. Also reviewed if needs to break from for a few days, just take folic acid supplement, then try going back to vitamins. Patient verbalizes underst anding. Also wondering about increased discharge yesterday. States noted a few wet spots in underwear almost liquid like urine, but didn't smell like urine. Denies abnormal color or odor. Reviewed protocol recommendations and care advice. Paitnet verbalizes understanding and agrees with plan. Will call back with any changes or if would like appointment for reassurance. Problem list reviewed as related to this call. documented in this encounter Plan of Treatment Upcoming Encounters Date Type Department Care Team (Late st Contact Info) Description 09/12/2023 3:20 PM CDT Appointment [facility]-SPECIALTY SALES CONSULTANT [address]84 [facility], [facility] [address] [place] [phone] [place] [address] [place] [address] 09/19/2023 10:00 AM CDT Appointment [facility] [address] [facility], [facility] [address] [place] [phone] Maria Dolores Del Real, LAMINATION INSPECTOR, DATA REVIEWER [address] [place] [address] 09/19/2023 11:00 AM CDT Appointment [facility] [address] [facility], [address] [place] [phone] Shaggy Smith MD [address] [facility] [address] [place], [place] [address] 10/13/2023 9:00 AM CDT Appointment [facility]-SPECIALTY SALES CONSULTANT [address] [facility], [address] [place] [phone] Maria Dolores Del Real, LAMINATION INSPECTOR, DATA REVIEWER [address]var[address] [place] [address] documented as of this encounter Visit Diagnoses Not on filedocumented in this encounter Care Teams Rebeamer Relationship Specialty [place] [address] [place] [address] PCP - General Family Practice 11/03/20 documented as of this encounter
--- OUTSIDE RECORDS SUMMARY | 2023-09-08 23:13 | XMS_ITS | Encounter Summary ---
Author Organization [employer] Address [address], [place] [address] Care Team Providers Care Institution Director Name Role Phone Randal Joe MD Primary Care Provider [phone] Reason for Visit * Reason Comments LAB RESULTS Encounter Details Date Type Department Care Team (Late st Contact Info) Description 07/07/2023 Telephone [facility] [address] [place] [address] [place] [address] [place] [address] LAB RESULTS Social History Tobacco Use Types Packs/Day Years [...] as of this encounter Nursing Notes * Rosangela Sandoval RN - 07/07/2023 7:42 PM CDT Pt calling inquiring which lab tests are still pending. Advised pt of pending labs. Pt inquires about Treponema Screen, advised of results. Pt verbalizes understanding. No further questions or concerns at this time. * Gale Alas RN - 07/07/2023 7:28 PM CDT Clinician: Review and advise Patient/wound care rn request: Input needed: lab results Specific Request: Advise on test results Spoke to the patient. Advised of negative treponema result. Patient requesting follow up from provider regarding all results when the clinic is open. Nursing: a voicemail can be left on phone number of [phone] documented in this encounter Plan of Treatment Upcoming Encounters Date Type Department Care Team (Late st Contact Info) Description 09/12/2023 3:20 PM CDT Appointment [facility]-DENTAL PROFESSIONAL [address] [facility], [facility] [address] [place] [phone] [place] [address] [place] [address] [phone] 09/19/2023 10:00 AM CDT Appointment [facility] [address] [facility], [facility] [address] [place] [phone] Maria Dolores Del Real APRN, CASHIER SUPERVISOR [address] Guevara [address] [place] [address] [phone] 09/19/2023 11:00 AM CDT Appointment [facility] 9855 [facility], [address] [place] [phone] Shaggy Smith MD [address] [facility] [address] [place], [place] [phone] 10/13/2023 9:00 AM CDT Appointment [facility]-DENTAL PROFESSIONAL [address] [facility], [address] [place] [phone] Maria Dolores Del Real, BUILD TECHNICIAN, CASHIER SUPERVISOR [address] [place] [address] documented as of this encounter Visit Diagnoses Not on filedocumented in this encounter Care Teams Institution Director Relationship Specialty [place] [address] [place] [address] PCP - General Family Practice 11/03/20 documented as of this encounter
--- OUTSIDE RECORDS SUMMARY | 2023-09-08 23:13 | XMS_ITS | Encounter Summary ---
Author Organization [employer] Address [address], [place] [address] Care Team Providers Care Long Wall Mining Machine Helper Name Role Phone Randal Joe MD Primary Care Provider Encounter Details Date Type Department Care Team (Late st Contact Info) Description 07/07/2023 9:40 AM CDT Lab Visit [facility], [facility] [address] [place] [phone] Supervision of high risk in first trimester; [...] Info) Description 09/12/2023 3:20 PM CDT Appointment [facility]-WEB MARKETING SPECIALIST [address] [place] [address], [address] [phone] [place] [address] [place], [place] [address] 09/19/2023 10:00 AM CDT Appointment [facility] [address] [place] [address], [address] [phone] Maria Dolores Del Real, CHILD CARE SUPERVISOR, TOOL GRINDING TECHNICIAN [address] [place] [address] Dr Guevar[address] [place] [address] [phone] 09/19/2023 11:00 AM CDT Appointment [facility] [address] [place] [address], [address] [phone] Shaggy Smith MD [address] [place] [address] 275 [facility] [place], [place] [address] 10/13/2023 9:00 AM CDT Appointment [facility]-WEB MARKETING SPECIALIST [address] [place] [address], [address] [phone] Maria Dolores Del Real, CHILD CARE SUPERVISOR, TOOL GRINDING TECHNICIAN [address] [place] [address] Dr Guevara [address] [place] [address] [phone] documented as of this encounter Procedures Procedure Name Priority Date/Time Associated Diagnosis Comments RUBELLA IMMUNE STATUS, IGG Routine 07/07/2023 9:48 [...] Supervision of high risk in first trimester documented in this encounter Results * Panorama NIPT (07/07/2023 9:48 AM CDT) Panorama NIPT See Scanned Report 07/16/2023 10:34 AM CDT [employer] Blood Venipuncture / Unknown 07/07/2023 9:48 AM CDT 07/07/2023 9:48 AM CDT Maria Dolores Del Real APRN, TOOL GRINDING TECHNICIAN LAB_1 [employer] [address], [address] [place] [address] * Treponema Screen (Syphilis) (07/07/2023 9:48 AM CDT) Treponema Screen Result 0.127 {s_co_ratio } 07/07/2023 4:38 PM CDT [facility] Treponema Screen Interpretation Non Reactive Non Reactive 07/07/2023 4:38 PM CDT [facility] Blood Venipuncture / Unknown 07/07/2023 9:48 AM CDT 07/07/2023 9:48 AM CDT Maria Dolores Del Real APRN, CNP LAB_1 Performing Organization Address [facility] de Phone Number [facility] [address] [place], [place] [address] * (ABNORMAL) Urine Culture (07/07/2023 9:48 AM CDT) [facility] Urine Culture Growth(A) 07/08/2023 9:14 PM CDT [facility] Urine Culture <10,000 CFU/mL Mixed Bacterial Growth 07/08/2023 9:14 PM CDT [facility] Comment: Mixed Bacterial Growth indicates the specimen is likely contaminated at collection with urogenital and/or fecal nicole. The presence of organisms at <10,000 cfu/ml in culture, UTI unlikely. Urine URINE SPECIMEN COLLECTION, CLEAN CATCH / Unknown Non-blood Collection / Unknown 07/07/2023 9:48 AM CDT 07/07/2023 9:48 AM CDT Maria Dolores Del Real APRN, CNP LAB_1 Performing Organization Address City/[facility] Co de Phone Number [address] [address], [facility] * Rubella Immune Status, IgG (07/07/2023 9:48 AM CDT) Rubella Units 3.84 07/08/2023 10:19 AM CDT [facility] Comment:The magnitude of the measured result, above the cutoff, is not indicative of the amount of antibody present. Rubella Intepretation Immune Immune 07/08/2023 10:19 AM CDT [facility] Blood Venipuncture / Unknown 07/07/2023 9:48 AM CDT 07/07/2023 9:48 AM CDT Maria Dolores Del Real CHILD CARE SUPERVISOR, TOOL GRINDING TECHNICIAN LAB_1 [facility] [address] * Rapid Drug Panel, Urine (with Confirmation) without THC (07/07/2023 9:48 AM CDT) [facility] Amphetamines Screen Not Detected Not Detected 07/07/2023 4:08 PM CDT [facility] Barbiturates Screen Not Detected Not Detected 07/07/2023 4:08 PM CDT [facility] Benzodiazepines Screen Not Detected Not Detected 07/07/2023 4:08 PM CDT [facility] Buprenorphine Screen Not Detected Not Detected 07/07/2023 4:08 PM CDT [facility] Cocaine Metabolite Screen Not Detected Not Detected 07/07/2023 4:08 PM CDT [facility] Methadone Screen Not Detected Not Detected 07/07/2023 4:08 PM CDT [facility] Opiates Screen Not Detected Not Detected 07/07/2023 4:08 PM CDT [facility] Oxycodone Screen Not Detected Not Detected 07/07/2023 4:08 PM CDT [facility] Phencyclidine (PCP) Screen Not Detected Not Detected 07/07/2023 4:08 PM CDT [facility] Creatinine, Urine, Random 275 >20 mg/dL 07/07/2023 4:08 PM CDT [facility] Urine Non-blood Collection / Unknown 07/07/2023 9:48 AM CDT 07/07/2023 9:48 AM CDT Narrative [facility] - 07/07/2023 4:08 PM CDT The [...] Real APRN, CNP LAB_1 Performing Organization Address [facility] de Phone Number [facility] [address] [place] [address] * HIV 1/2 Ag/Ab 4th Generation (07/07/2023 9:48 AM CDT) [facility] HIV 1/2 Antigen/Antib monica (4th generation) Negative (Non Reactive) Negative (Non Reactive) 07/07/2023 4:39 PM CDT [facility] Comment:HIV-1 p24 Antigen an d HIV-1/HIV-2 Antibody not detected Blood Venipuncture / Unknown 07/07/2023 9:48 AM CDT 07/07/2023 9:48 AM CDT Maria Dolores Del Real APRN, CNP LAB_1 Performing Organization Address [facility] Phone Number [facility] [address] [place] [address] * Hgb A1C (07/07/2023 9:48 AM CDT) [facility] Hemoglobin A1C 5.0 <=5.6 % 07/07/2023 8:20 PM CDT [facility] Estimated Average Glucose (Calc) 97 < 117 mg/dL 07/07/2023 8:20 PM CDT [facility] Comment:Estimated average gl ucose (eAG) converts A1c into glucose units (mg/dL) and estimates average glucose over the past approximately 3 months. The eAG reference interval (<117 mg/dL) corresponds to an A1c of <5.7%. Blood Venipuncture / Unknown 07/07/2023 9:48 AM CDT 07/07/2023 9:48 AM CDT Maria Dolores Del Real APRN, CNP LAB_1 Performing Organization Address [facility] de Phone Number [facility] [address] * Hepatitis C Antibody, with Reflex (07/07/2023 9:48 AM CDT) Pathologist [facility] Hepatitis C Antibody Negative (Non Reactive) Negative (Non Reactive) 07/07/2023 4:39 PM CDT [facility] Comment:Antibodies to HCV no t detected. Does not exclude the possiblity of exposure to HCV. Blood Venipuncture / Unknown 07/07/2023 9:48 AM CDT 07/07/2023 9:48 AM CDT Maria Dolores Del Real APRN, CNP LAB_1 Performing Organization Address [facility] Co de Phone Number [facility] [address] [place] [address] * Hepatitis B Surface Antigen (07/07/2023 9:48 AM CDT) Pathologist [facility] Hepatitis B Surface Antigen Negative (Non Reactive) Negative (Non Reactive) 07/07/2023 4:38 PM CDT [facility] Blood Venipuncture / Unknown 07/07/2023 9:48 AM CDT 07/07/2023 9:48 AM CDT Maria Dolores Del Real APRN, CNP LAB_1 Performing Organization Address [facility] Co al Phone Number [facility] [address] [place] [address] * Complete Blood Count-No Diff (07/07/2023 9:48 AM CDT) Pathologist [facility] WBC 9.5 3.5 - 10.5 x10(9)/L 07/07/2023 2:02 PM CDT [facility] RBC 4.56 3.90 - 5.03 x10(12)/L 07/07/2023 2:02 PM CDT [facility] Hemoglobin 13.7 12.0 - 15.5 g/dL 07/07/2023 2:02 PM CDT [facility] HCT 39.5 34.9 - 44.5 % 07/07/2023 2:02 PM [facility] MCV 86.6 80.0 - 100.0 fL 07/07/2023 2:02 PM [facility] MCH 30.0 27.6 - 33.3 pg 07/07/2023 2:02 PM T [facility] MCHC 34.7 31.5 - 35.2 g/dL 07/07/2023 2:02 PM T [facility] RDW 12.4 11.9 - 15.5 % 07/07/2023 2:02 PM T [facility] Platelets 246 150 - 450 x10(9)/L 07/07/2023 2:02 PM [facility] Automated NRBC 0 <=0 /100 WBC 07/07/2023 2:02 PM T [facility] Blood Venipuncture / Unknown 07/07/2023 9:48 AM CDT 07/07/2023 9:48 AM CDT Maria Dolores Del Real APRN, CNP LAB_1 Performing Organization Address City/[facility]/ZIP Co de Phone Number [facility] [address] [place] [address] * Blood Type (07/07/2023 9:48 AM CDT) ABO A 07/07/2023 4:42 PM CDT [facility] RH Positive 07/07/2023 4:42 PM CDT [facility] Blood Venipuncture / Unknown 07/07/2023 9:48 AM CDT 07/07/2023 9:48 AM CDT Maria Dolores Del Real APRN, CNP LAB_1 [facility] [address] [place], [place] [address] [place] [address] * Antibody Screen (07/07/2023 9:48 AM CDT) Antibody Screen Interpretation Negative 07/07/2023 4:42 PM CDT [facility] Blood Venipuncture / Unknown 07/07/2023 9:48 AM CDT 07/07/2023 9:48 AM CDT Maria Dolores Del Real APRN, SEBASTIÁN LAB_1 [facility] [address] [place] [id number] documented in this encounter Visit Diagnoses Diagnosis Supervision of high risk in first trimester Unspecified high-risk Primigravida of advanced maternal age in first trimester documented in this encounter Care Teams Long Wall Mining Machine Helper Relationship Specialty [place] [address] [place] [address] PCP - General Family Practice 11/03/20 documented as of this encounter
--- OUTSIDE RECORDS SUMMARY | 2023-09-08 23:13 | XMS_ITS | Encounter Summary ---
Author Organization [facility] Address [address] [place] [address] Care Team Providers Care Email Campaign Manager Name Role Phone Randal Joe MD Primary Care Provider [phone] Encounter Details Date Type Department Care Team (Late Contact Info) Description 06/24/2023 [facility] 6500 [facility] [place], [place] [address] [place] [address] Social History Tobacco Use Types Packs/Day Years [...] Info) Description 09/12/2023 3:20 PM CDT Appointment [facility]-ELECTROMECHANICAL ASSEMBLER [address] [facility] 420 [place] [phone] [place] [address] [address] [place], [place] [phone] 09/19/2023 10:00 AM CDT Appointment [facility] [address] [place] [address] [phone] Maria Dolores Del Real, ASSOCIATE PROFESSOR OF EDUCATION, MARKETING RESEARCHER [address] [place] [address] Ismael Mason [place], [place] [phone] 09/19/2023 11:00 AM CDT Appointment [facility] [address] [place] [phone] Shaggy Smith MD [address] [place] [address] [phone] 10/13/2023 9:00 AM CDT Appointment [facility]-ELECTROMECHANICAL ASSEMBLER [address] [place] [address] [phone] Maria Dolores Del Real ASSOCIATE PROFESSOR OF EDUCATION, MARKETING RESEARCHER [address] [place] [address] Ismael Mason [place], [place] [phone] documented as of this encounter Visit Diagnoses Not on filedocumented in this encounter Care Teams Email Campaign Manager Relationship Specialty [place] [address] [place] [address] PCP - General Family Practice 11/03/20 documented as of this encounter
--- OUTSIDE RECORDS SUMMARY | 2023-09-08 23:13 | XMS_ITS | Encounter Summary ---
Author Organization [employer] Address [address], [place] [address] Care Team Providers Care Tire Setter Name Role Phone Randal Joe MD Primary Care Provider [phone] Reason for Visit * Reason Comments Ultrasound Results Encounter Details Date Type Department Care Team (Late st Contact Info) Description 06/22/2023 Telephone [facility]-FINANCIAL INTERN [address] [phone] [place] [address] [facility] [address] [place] [address] Ultrasound Results Social History Tobacco Use Types Packs/Day Years Used Date Smoking Tobacco: Former Cigarettes Q uit: 08/28/2017 Smokeless Tobacco: Never Alcohol Use Standard Drinks/Week Comments Yes 0 (1 standard drink = 0.6 oz pur e alcohol) occ PHQ-2 Answer Date Recorded PHQ-2 Score 2 04/27/2022 Estimated Date of Delivery Comme nts Yes 02/04/2024 Based on last me nstrual period of 04/30/2023 (Exact Date) Sex and Gender Information Value Date Recorded Sex Assigned at Not on file Gender Identity Not on file Sexual Orientation Not on file documented as of this encounter Nursing Notes * Vida Valadez RN - 06/22/2023 2:50 PM CDT Patient returns call. Reviewed their message from provider. They verbalize understanding and agree with plan. * Karin Yusuf MA - 06/22/2023 2:20 PM CDT Left message for patient to return call. Provided triage number. * Karin Yusuf MA - 06/22/2023 2:11 PM CDT ----- Message from Sofiya Vo MD sent at 06/22/2023 10:52 AM CDT ----- Please let pt know; Good news! Your ultrasound shows a baby that is consistent with a 7w4d GA. There is a good heart beat at 178 bpm. Congratulations! Please continue to take vitamins. Please make sure you have your NOB1 and NOB 2 scheduled. Thanks AA documented in this encounter Plan of Treatment Upcoming Encounters Date Type Department Care Team (Late st Contact Info) Description 09/12/2023 3:20 PM CDT Appointment [facility]-FINANCIAL INTERN [address] [place] [phone] [place] [address] [place] [address] [phone] 09/19/2023 10:00 AM CDT Appointment [facility] [address] [place] [address], [address] [phone] Maria Dolores Del Real APRN, INSTRUMENT MAKER AND REPAIRER [address] Guevara [address] [place] [address] [phone] 09/19/2023 11:00 AM CDT Appointment [facility] 9855 [facility], [address] [place] [phone] Shaggy Smith MD [address] [place] [address] Dr Guevar[address] [phone] 10/13/2023 9:00 AM CDT Appointment [facility]-FINANCIAL INTERN [address] [facility], [address] [place] [phone] Maria Dolores Del Real APRN, INSTRUMENT MAKER AND REPAIRER [address] [place] [phone] documented as of this encounter Visit Diagnoses Not on filedocumented in this encounter Care Teams Tire Setter Relationship Specialty [place] [address] [place] [address] PCP - General Family Practice 11/03/20 documented as of this encounter
--- OUTSIDE RECORDS SUMMARY | 2023-09-08 23:13 | XMS_ITS | Encounter Summary ---
Author Organization [employer] Address [address] [address] Care Team Providers Care Window Display Designer Name Role Phone Randal Joe MD Primary Care Provider Reason for Visit * Reason Comments Concerns LAB TESTS, NOS Encounter Details Date Type Department Care Team (Late st Contact Info) Description 06/15/2023 [facility]phone [facility] [address] [facility] [place] [address] Maria Dolores Del Real, HEADER DOCK, SLITTER HELPER [address] [place] [address] Concerns; LAB TESTS, NOS Social History Tobacco Use Types Packs/Day Years Used Date Smoking Tobacco: Former Cigarettes Q uit: 08/28/2017 Smokeless Tobacco: Never Alcohol Use Standard Drinks/Week Comments Yes 0 (1 standard drink = 0.6 oz pur e alcohol) occ PHQ-2 Answer Date Recorded PHQ-2 Score 2 04/27/2022 Sex and Gender Information Value Date Recorded Sex Assigned at Not on file Gender Identity Not on file Sexual Orientation Not on file documented as of this encounter Nursing Notes * Radha Lund RN - 06/15/2023 10:37 AM CDT Medications with Triage Reference SYMPTOMS: nausea . Nausea in : Increase fluids (e.g. water, ice chips, sports drinks by 2 liters a day until urine is clear). Drink fluids slowly, in small sips. --- OK to use Unisom with Doxylamine: 25 mg TID. Contradicted with emphysema or chronic bronchitis. OK to use Vitamin B6 50 mgm (can take up to 100 mg/day). ---Initial dose is 25 mg PO every 6-8 hrs with max dose of 100 mg/day. Try taking Vitamins with food/meal. Try taking vitamin at bedtime. Try chewable vitamin. If need to discontinue vitamins for a time, continue folic acid supplementation (600-1000mcg/day). Herbal teas may be helpful: Peppermint, Spearmint, Anise, Chamomile, Red Raspberry [place], Fennel. Honey can be used as sweetener. Advised to call back if any of the following occur: symptoms worsen, any other questions or concerns. Patient/Caller agrees with plan and denies additional questions. Reviewed providers note below. Pt agreed with providers advice and will await to do her US on 06/21 as scheduled. * Sofiya Vo MD - 06/15/2023 10:12 AM CDT She does not need weekly HCGs anymore Next step to await for her US Thanks AA * Param Padilla RN - 06/15/2023 9:52 AM CDT Reason for Call: Lab questions Next Steps: Document further recommendations and route to appropriate person or pool. Caller IS expecting a call back from Care Team. Additional Information: Patient has been having weekly HCGs. Last HCG ordered by [facility] on 06/10 was 28,206. Has an U/S scheduled as well. Wondering if she needs to continue with weekly labs. Lab Results Component Value Date HCG, Quantitative 12,892 (H) 06/10/2023 HCG, Quantitative 14,208 (H) 06/07/2023 HCG, Quantitative 3,049 (H) 06/01/2023 Future Appointments Date Time Provider Department Center 06/22/2023 8:45 AM B[facility] US 2 [facility] US PN [facility] 06/24/2023 11:30 AM Nurse Intake, P6500 Ob P6500 OBG PN 6500 07/07/2023 8:30 AM Maria Dolores Del Real APRN, SLITTER HELPER [facility] PN [facility] 08/04/2023 8:30 AM Sofiya Vo MD [facility] documented in this encounter Plan of Treatment Upcoming Encounters Date Type Department Care Team (Late st Contact Info) Description 09/12/2023 3:20 PM CDT Appointment [facility] [address] [place] [phone] [place] [id number] [place] [address] [address] 09/19/2023 10:00 AM CDT Appointment [facility] [address] [place] [address] [phone] Maria Dolores Del Real APRN, SLITTER HELPER [address] [place] [address] Dr Guevara [address] [place] [place] [address] 09/19/2023 11:00 AM CDT Appointment [facility] [address] [place] [address] [phone] Shaggy Smith MD [address] [place] [address] [phone] 10/13/2023 9:00 AM CDT Appointment [facility] [address] [place] [address] [phone] Maria Dolores Del Real APRN, SLITTER HELPER [address] [place] [address] documented as of this encounter Visit Diagnoses Not on filedocumented in this encounter Care Teams Window Display Designer Relationship Specialty [place] [address] [place] [address] PCP - General Family Practice 11/03/20 documented as of this encounter
--- OUTSIDE RECORDS SUMMARY | 2023-09-08 23:13 | XMS_ITS | Encounter Summary ---
Author Organization [employer] Address [address], [place] [address] Care Team Providers Care Hospice Office Coordinator Name Role Phone Randal Joe MD Primary Care Provider [phone] Reason for Visit * Reason Comments Forms/Letter Entered automaticall y based on patient selection in [facility]. Encounter Details Date Type Department Care Team (Late st Contact Info) Description 07/08/2023 8:30 AM CDT E-Visit [facility]MANA[facility] [address] [place] [phone] [place] [address] [address] Chief Comp: Forms/Letter Social History Tobacco Use Types Packs/Day Years [...] encounter Nursing Notes * Dyan Townsend - 07/12/2023 7:29 AM CDT Forms completed. Faxed to Carlos (AURELIANO on file). Copy in patient pickup. * Maria Dolores Del Real APRN, CNP - 07/11/2023 12:14 PM CDT Form completed and signed. * Dyan Townsend - 07/11/2023 10:30 AM CDT Forms in Maria Dolores's in basket. documented in this encounter Plan of Treatment Upcoming Encounters Date Type Department Care Team (Late st Contact Info) Description 09/12/2023 3:20 PM CDT Appointment [facility] [address] [facility], [facility] [address] [place] [phone] [place] [address] Guevara [address] [place] [address] [phone] 09/19/2023 10:00 AM CDT Appointment [facility] [address] [facility], [facility] [address] [place] [phone] Maria Dolores Del Real APRN, CNP [address] [place] [address] Dr Guevara [address] [place] [address] 09/19/2023 11:00 AM CDT Appointment [facility] [address] [place] [address], [address] [place] [phone] Shaggy Smith MD [address] [facility] [address] Guevara [facility] ROSEANNE RIVAS [phone] 10/13/2023 9:00 AM CDT Appointment [facility] [address] [facility], [address] [place] [phone] Maria Dolores Del Real APRN, THERAPEUTIC PROGRAM WORKER [address] Guevara [address] [place] [address] documented as of this encounter Visit Diagnoses Not on filedocumented in this encounter Care Teams Hospice Office Coordinator Relationship Specialty [place] [address] [place] [address] PCP - General Family Practice 11/03/20 documented as of this encounter
--- OUTSIDE RECORDS SUMMARY | 2023-09-08 23:13 | XMS_ITS | Encounter Summary ---
Author Organization [facility] Address [address] [address] Care Team Providers Care Power Plant Manager Name Role Phone Randal Joe MD Primary Care Provider Encounter Details Date Type Department Care Team (Late st Contact Info) Description 07/11/2023 [facility] [address] [place], [place] [phone] Toi, [place] [address] Social History Tobacco Use Types Packs/Day Years [...] Info) Description 09/12/2023 3:20 PM CDT Appointment [facility]NUT CULLER [address] [facility] [address] [place] [phone] [place] [address] Guevara [place], [place] [phone] 09/19/2023 10:00 AM CDT Appointment [facility] [address] [place] [address] [phone] Maria Dolores Del Real, FAMILY LIVING EDUCATOR, DIRECTOR OF RADIO SERVICES [address] [place] [address] Ismael Cuevas [place], [place] [phone] 09/19/2023 11:00 AM CDT Appointment [facility] [address] [place] [address] [phone] Shaggy Smith MD [address] [place] [address] [phone] 10/13/2023 9:00 AM CDT Appointment [facility]NUT CULL[facility] [address] [place] [address] [phone] Maria Dolores Del Real FAMILY LIVING EDUCATOR, DIRECTOR OF RADIO SERVICES [address] [place] [address] [phone] documented as of this encounter Visit Diagnoses Not on filedocumented in this encounter Care Teams Power Plant Manager Relationship Specialty [place] [address] [place] [address] PCP - General Family Practice 11/03/20 documented as of this encounter
--- OUTSIDE RECORDS SUMMARY | 2023-09-08 23:13 | XMS_ITS | Encounter Summary ---
Author Organization [employer] Address [address], [place] [address] Care Team Providers Care Cancer Program Consultant Name Role Phone Randal Joe MD Primary Care Provider [phone] Reason for Visit * Reason Comments Concerns Encounter Details Date Type Department Care Team (Late st Contact Info) Description 06/22/2023 Telephone [facility]-SALES REPRESENTATIVE CONSULTANT [address] [facility] [address] [place] [phone] [place] [address] [facility] [address] [place] [address] Concerns Social History Tobacco Use [...] Nursing Notes * Carin Root RN - 06/23/2023 12:02 PM CDT Calling back because suggested getting her provider's opinion. Advised the information previously given was agreed upon by the providers as a way for nurses to be able to answer as many possible questions as possible during . Went over information again but encouraged to wait if this would help ease her concerns. * Radha Lund RN - 06/22/2023 12:44 PM CDT Pt currently . Wondering if OK to use hair dye. Reviewed information regarding hair dye in [place] Your guide to a heathy . Pg 26 Most evidence suggests that hair dyes and permanent wave solutions are safe. But hormones may change how these ingredients react with your hair. documented in this encounter Plan of Treatment Upcoming Encounters Date Type Department Care Team (Late st Contact Info) Description 09/12/2023 3:20 PM CDT Appointment [facility]-SALES REPRESENTATIVE CONSULTANT [address] [place] [address], [address] [phone] [place] [address] Guevara [address] [place] [phone] 09/19/2023 10:00 AM CDT Appointment [facility] [address] [place] [address] [phone] Maria Dolores Del Real, PREMIX OPERATOR CONCENTRATE, EMAIL DEPLOYMENT SPECIALIST [address] [place] [address] Dr Guevara [address] [place] [address] [phone] 09/19/2023 11:00 AM CDT Appointment [facility] [address] [place] [address], [address] [place] [phone] Shaggy Smith MD [address] [place] [address] [place] [address] [place], [place] [phone] 10/13/2023 9:00 AM CDT Appointment [facility]-SALES REPRESENTATIVE CONSULTANT [address] [facility], [address] [place] [address] Maria Dolores Del Real APRN, EMAIL DEPLOYMENT SPECIALIST [address] Ismael [address] [place] [address] documented as of this encounter Visit Diagnoses Not on filedocumented in this encounter Care Teams Cancer Program Consultant Relationship Specialty [place] [address] [place] [address] PCP - General Family Practice 11/03/20 documented as of this encounter
--- OUTSIDE RECORDS SUMMARY | 2023-09-08 23:13 | XMS_ITS | Encounter Summary ---
Author Organization [facility] Address [address], [place] [address] Care Team Providers Care Library Aide Name Role Phone Randal Joe MD Primary Care Provider [phone] Reason for Visit * Reason Comments Forms Encounter Details Date Type Department Care Team (Late st Contact Info) Description 07/07/2023 Telephone [facility]-BODY [facility] [address] [phone] Maria Dolores Del Real, DOCUMENT SPECIALIST, CHEF MANAGER [address] [facility] [address] [place] [address] Forms Social History Tobacco Use [...] Nursing Notes * Dyan Townsend - 07/12/2023 7:28 AM CDT Forms completed. Faxed to Carlos (AURELIANO on file). Copy in patient pickup. * Dyan Townsend - 07/11/2023 10:31 AM CDT Forms in Maria Dolores's in basket. * Kayla Rm RN - 07/08/2023 8:19 AM CDT Alisia asking about FMLA forms. She is asking for intermittent FMLA, to attend appointments, sick days, ect. 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 We discussed it may be best for her to document exactly what she is needing for FMLA, in detail, and document in msg. She agrees with plan. * Dyan Townsend - 07/07/2023 2:57 PM CDT Per Maria Dolores Gave: I am fine with general restrictions, such as: Per [place] State Law, statute 181.939 subdivision 2, an employer must provide reasonable accomodations to womenfor more frequent restroom and eating breaks, lifting limits of 20 pounds, and adequate seating. * Dyan Townsend - 07/07/2023 2:33 PM CDT Patient requesting intermittent FMLA. Message sent to provider. Chart notes from 07/06 do not show leave is medically necessary. Will see what provider is willing to approve. * Dyan Townsend - 07/07/2023 2:10 PM CDT Forms dropped off 07/06. documented in this encounter Plan of Treatment Upcoming Encounters Date Type Department Care Team (Late st Contact Info) Description 09/12/2023 3:20 PM CDT Appointment [facility]BODY [facility] [address] [place] [address] [phone] Miranda Metzger DO [address] [place] [address] [phone] 09/19/2023 10:00 AM CDT Appointment [facility] [address] [place] [address] [phone] Maria Dolores Del Real APRN, CHEF MANAGER [address] [place] [address] [phone] 09/19/2023 11:00 AM CDT Appointment [facility] [address] [place] [address] [phone] Shaggy Smith MD [address] [place] [address] [phone] 10/13/2023 9:00 AM CDT Appointment [facility]BODY [facility] [address] [place] [address] [phone] Maria Dolores Del Real APRN, CHEF MANAGER [address] [place] [address] [phone] documented as of this encounter Visit Diagnoses Not on filedocumented in this encounter Care Teams Library Aide Relationship Specialty [place] [address] [place] [address] PCP - General Family Practice 11/03/20 documented as of this encounter
--- OUTSIDE RECORDS SUMMARY | 2023-09-08 23:13 | XMS_ITS | Encounter Summary ---
Author Organization [email or web address] Address [address], [place] [address] Care Team Providers Care Naval Architect Specialist Name Role Phone Randal Joe MD Primary Care Provider [phone] Reason for Visit * Reason Comments Concerns Encounter Details Date Type Department Care Team (Late st Contact Info) Description 06/25/2023 Nurse Triage [facility] [address] [place], [place] [phone] [place] [address] [place], [place] [phone] Concerns Social History Tobacco Use Types Packs/Day [...] as of this encounter Nursing Notes * Monica Dixon RN - 06/25/2023 12:33 PM CDT Reason for Disposition SPOTTING after a pelvic examination (single or brief episode) Protocols used: - Vaginal Bleeding Less Than 20 Weeks [id number] Patient calling. States she is 7 weeks . Had a vaginal US on Tuesday and everything was ok. This morning she is noticing brown mucous discharge. Denies red discharge, passing clots, or constant abdominal pain. Asking when to be concerned? PNNL advised per guideline. Agrees with plan. Willcall back sooner with other questions or concerns. Problem list reviewed as related to this call. documented in this encounter Plan of Treatment Upcoming Encounters Date Type Department Care Team (Late st Contact Info) Description 09/12/2023 3:20 PM CDT Appointment [facility]-URBAN PLANNER [address] [place] [address] [phone] [place] [address] [phone] 09/19/2023 10:00 AM CDT Appointment [facility] [address] [place] [address] [phone] Maria Dolores Del Real APRN, HOME ORGANIZER [address] [place] [address] [phone] 09/19/2023 11:00 AM CDT Appointment [facility] [address] [place] [address] [phone] Shaggy Simth MD [address] [place], [place] [address], [place] [phone] 10/13/2023 9:00 AM CDT Appointment [facility]URBAN PLANNER [address] [place] [address] [phone] Maria Dolores Del Real APRN, HOME ORGANIZER [address] [place] [address] documented as of this encounter Visit Diagnoses Not on filedocumented in this encounter Care Teams Naval Architect Specialist Relationship Specialty [place] [address] [place] [address] PCP - General Family Practice 11/03/20 documented as of this encounter
--- OUTSIDE RECORDS SUMMARY | 2023-09-08 23:13 | XMS_ITS | Encounter Summary ---
Author Organization [facility] Address [address] [address] Care Team Providers Care Floater Operator Name Role Phone Randal Joe MD Primary Care Provider [phone] Reason for Referral * Procedure/Equipment (Routine) - Incomplete Specialty Diagnoses / Procedures Referred By Contac t Referred To Contact Diagnoses Supervision of high risk in first trimester Primigravida of advanced maternal age in first trimester Procedures MFM US OB Detailed Anatomy Maria Dolores Del Real APRN, CNP [address] [address] [place], [place] [id number] Referral ID Status Reason Start Date Expiration Date V isits Requested Visits Authorized [id number] Incomplete 09/17/2023 12/16/2024 1 1 * Procedure/Equipment (Routine) - Incomplete Specialty Diagnoses / Procedures Referred By Contac t Referred To Contact Diagnoses Supervision of high risk in first trimester Primigravida of advanced maternal age in first trimester Procedures MFM US OB First Trimester Ultrasound Maria Dolores Del Real APRN, CNP [address] [address] [place] [id number] Referral ID Status Reason Start Date Expiration Date V isits Requested Visits Authorized [id number] Incomplete 07/30/2023 10/28/2024 1 1 * Consult/Transfer Care (Routine) - New Request Specialty Diagnoses / Procedures Referred By Andriy bradford Referred To Contact Diagnoses Supervision of high risk in first trimester Primigravida of advanced maternal age in first trimester Maria Dolores Del Real APRN, CNP [address] [place] [id number] Referral ID Status Reason Start Date Expiration Date V isits Requested Visits Authorized [id number] New Request 07/07/2023 10/05/2024 1 1 Scheduling Instructions Your clinician has recommended an appointment with [facility]. A radiology scheduler will contact you to assist you in setting up this appointment. If you have not been contacted within one week or have any questions, please call [phone]. We suggest you call your health insurance company about your coverage and benefits for this appointment. Question Answer Appointment Urgency? Non-Urgent Multiple Gestation? [facility] Service Ultrasound Only Type of Imaging: Level 2 US 19-22 wks Indications for Ultrasound AMA Dependent on ultrasound findings, patient may be scheduled for MFM Consult and/or additional ultrasound testing. Yes Reason for Visit * Reason Comments INITIAL VISIT Encounter Details Date Type Department Care Team (Late st Contact Info) Description 07/07/2023 8:30 AM CDT Initial [facility]SPECIAL EDUCATION PARAPROFESSIONAL [address] [facility], [address] [place] [phone] Maria Dolores Del Real APRN, CNP [address] [address] [place] [id number] INITIAL VISIT Social History Tobacco Use Types Packs/Day Years [...] Sign Reading Time Taken Comments Blood Pressure 113/63 07/07/2023 8:41 AM CDT Pulse 81 07/07/2023 8:41 AM CDT Temperature - - Respiratory Rate - - Oxygen Saturation - - Inhaled Oxygen Concentration - - Weight 84.6 kg (186 lb 6.4 oz) 07/07/2023 8:41 A M CDT Height 171.5 cm (5' 7.5) 07/07/2023 8:41 AM CDT Body Mass Index 28.76 07/07/2023 8:41 AM CDT documented in this encounter Patient Instructions * Patient Instructions* Maria Dolores Del Real APRN, BULL RIDER - 07/07/2023 8:30 AM CDT Images from the original note were not included. For nausea: 1) Take Vitamin B6, 25 mg 3-4 times per day whether or not you think it's helping. 2) Take Unisom 1/2 - 1 tablet before bed. 3) Drink carbonated beverages such as Sprite, carbonated water, or jefferson lupe. Stay hydrated. 4) Eat/drink anything jefferson flavored (candy, tea). 5) Eat baked potatoes. 6) Sleep as much as possible. 7) Eat Preggie Pops (hard candies). Try to find the kind with Vitamin B6. 8) Keep saltines and jefferson lupe on your nightstand and have a little of each before getting out of bed. Get up slowly. 9) Don't take your vitamins on an empty stomach. 10) Some women find Sea Bands helpful for nausea management. Thank you for choosing us for your [...] our handout on Genetic Disease Carrier Screening: https://[employer]/64768.pdf Drinking any amount of alcohol during is not safe. Watch this short video by Proof [place]: Proof: Some Think Drinking During is OK. It???s Not. - Ronda video Marijuana use is never recommended while or . Learn why here: https://[employer]/86293.pdf is a time of transition. If you feel overwhelmed, anxious or depressed, see the followingresources: Emotional Distress During and After : https://[employer]/74787.pdf Resources & Support for New & Expecting Parents: https://[employer]/46543.pdf The 3 books provided throughout are also available digitally. Here are the links to each book: Your Guide to : https://user-[employer].ShopYourWorld.readfy/MbtspkFtautjln-Nalu-Yvbwi-vk-a-Gntbvby- Preparing for Childbirth: https://user-[employer].readfy/SdwiekFapbktwn-Hbj-Mgyz-of-Motherhood Taking Care of You and Your [place]: https://userGreat Lakes Pharmaceuticals.ShopYourWorld.readfy/NuxakfWvpakvkx-S-Iss-Beginning [place] for our free herb called ???myHealthyPregnancy?? powered by Page2Images. The herb offers many quick articles and videos on , labor, , , and newborncare. Find instructions here: Or click on this link: myHealthyPregnancy tracker herb [facility] In [place], soon-to-be, new, and nursing parents have legal protections to help keep them safe and healthy in the workplace. Find more information here: Or click on this link: Workers And New Parents * Attachments The following attachments cannot be sent through Care Everywhere. * !Aspirin in : Low-dose aspirin for the prevention or delay of preeclampia (Norwegian) documented in this encounter Progress Notes * Leonid Doyle RN - 07/07/2023 8:30 AM CDTAddended by: LEONID DOYLE on: 07/11/2023 12:00 PM Modules accepted: Orders * Maria Dolores Del Real APRN, CNP - 07/07/2023 8:30 AM CDT [facility] CC: Initial Visit Alisia Velasquez is a 38 y.o. is being seen today with her fianceCorrie, for her first obstetrical visit. She is established with the OBGYN department. Subjective: Current symptoms: Nausea: daily. Emesis: none. - PUQE score= 11 - Tried vitamin B6 and Unisom with no improvement - Takes PNV in the morning Breast tenderness: yes Fatigue: yes Bleeding/Spotting: intermittently has brown to red vaginal bleeding to spotting to discharge, last triggered by intercourse and went to ED 07/04 Risk Factors: AMA - Will be 38 at JENNIFER Small subchorionic hemorrhage - Last measured 2.6 x 0.6 x 1.1 cm 2 days ago REJI - Feels this is situational - Previously escitalopram which helped but she felt numb - Declines pharmacologic intervention at this time - EPDS=9 with no SI Menstrual History and Dating: Dating Summary Working JENNIFER: 02/04/2024 set by Maria Dolores Del Real APRN, CNP on 07/07/2023 based on Last Menstrual Period on 04/30/2023 (Exact Date) Based On JENNIFER GA Diff User Date Last Menstrual Period on 04/30/2023 (Exact Date) 02/04/2024 Working Maria Dolores Del Real APRN, CNP 07/07/2023 Ultrasound on 06/08/2023 01/31/2024 +4d Laura Courtney LPN 07/07/2023 GA: 6w1d Dating ultrasound on showed GA of 6w 1d. Discrepancy between LMP and radiology datin days. dating is based on LMP, and the patient is agreeable to this JENNIFER: 02/04/2024. Slot Ambassador Risk Assessment : Cat(s) at home: no Personal or family history of pre-eclampsia: no History of sexual assault or abuse: no OB History Para Term AB Living 3 0 0 0 2 0 SAB IAB Ectopic Multiple Live Births 1 1 0 0 0 # Outcome Date GA Lbr Ian/2nd Weight Sex Delivery Anes PTL Lv 3 Current 2 SAB 12/24/22 FD 1 IAB Obstetric Comments 12/2022- SAB/D&C Last pap: 03/26/22NILM, HPV neg Hx of abnormal pap: no Social History: Social History Socioeconomic History Marital status: Significant Other/Partner Spouse name: Corrie Number of children: 0 Years of education: Not on file Highest education level: Not on file Occupational History 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 Her father has prostate and bladder cancer s/p urostomy. Social Determinants of Health Financial Resource Strain: Not on file Food Insecurity: Not on file Transportation Needs: Not on file Intimate Partner Violence: Not on file Housing Stability: Not on file Past Medical History: Past Medical History: Diagnosis Date Arthritis Complication of anesthesia Depression Female infertility Heartburn Irritable bowel syndrome Miscarriage 12/2022 Obesity (HRC) Pap smear abnormality of cervix STD (sexually transmitted disease) (HRC) Urinary tract infection, site not specified Surgeries: Past Surgical History: Procedure Laterality Date HX APPENDECTOMY suction d&c 12/2022 missed Family/Genetic History: Family History Problem Relation Age of Onset Cancer Father Depression Father Depression Sister Diabetes Maternal Grandmother Heart Disease Maternal Grandmother Cancer, Colon Paternal Grandmother Cancer, Ovary Paternal Grandmother Cancer, Cervical Paternal Grandmother Alzheimer's Paternal Grandfather Depression Paternal Grandfather Dementia Paternal Grandfather Diabetes Cousin Cancer, Breast Other Medications: Outpatient Medications Prior to Visit Medication Sig Dispense Refill acetaminophen (TYLENOL) 325 MG tablet Take 1-2 Tablets (325-650 mg) by mouth. vitamin-ferrous fumarate-folic acid (PRENATALPLUS) 27-1 MG tablet Take 1 Tablet by mouth daily. No facility-administered medications prior to visit. Allergies/medications/family/genetic history reviewed and updated as needed in [facility]. Objective: Estimated body mass index is 28.76 kg/m?? as calculated from the following: Height as of this encounter: 5' 7.5 (1.715 m). Weight as of this encounter: 186 lb 6.4 oz (84.6 kg). See flow sheet. General: The patient appears well, in NAD. Neck: supple, symmetrical, trachea midline, no adenopathy. Thyroid: not enlarged, symmetric, no tenderness/mass/nodules. Lungs: clear, good air entry, no wheezes, rhonchi or rales. Heart: No murmurs, regular rate and rhythm. Breast: normal without suspicious masses, skin or nipple changes or axillary nodes, nipples normal without inversion, lesions or discharge Abdomen: soft without tenderness, guarding, rebound tenderness, mass or organomegaly. BSUS: SIUP with FHR 176 bpm Back: Symmetric, normal curvature, no CVAT. Pelvic: Ext Gen: No lesions, normal female Urethra: Normal Speculum and bimanual exams deferred. Lower extremities: No edema Skin: No rash or lesions. Psychiatric: Alert & oriented with normal affect and insight, does not appear depressed or anxious. Assessment: 38 y.o. at 9w5d Patient Active Problem List Diagnosis Panic disorder without agoraphobia Anxiety (HRC) Chronic migraine without aura without status migrainosus, not intractable Mild major depression (HRC) Seronegative arthritis Vitamin D deficiency (HRC) Nausea, vomiting, and diarrhea Prolonged Q-T interval on ECG Plan: During this visit, I completed the following health counseling with patient: Genetic screening options Offered First Trimester Screening (a.k.a. Maternal Screen), NIPS (most specific), and Quad Marker Screening or AFP, 12-14 week anatomy ultrasound CF screening discussed SMA screening discussed Check with insurance for coverage Discussed [employer] billing and contact information provided. Supplements recommended daily Vitamin Avoid use of alcoholic beverages, smoking and recreational drugs. Diet and Nutrition Healthy, well-balanced nutrition Listeriosis prevention- food safety information Fish brochure Precautions and warning signs: Pt to call with bleeding, pain, fever. Reviewed page 46 of NOB book. Weight gain recommendations during Pre- BMI is 25-29.9 so recommended weight gain is 15-25# Benefits of exercise during and encouraged regular physical activity Toxoplasmosis prevention Partner to change litter box during if cat(s) at home. COVID Counseling COVID virus information and precautions discussion. Follow CDC for latest recommendations. COVID vaccine recommended during for those not already vaccinated. Advised to call with positive result at which time Paxlovid will likely be recommended. Advised positive results will result in recommendations to start ASA and proceed with additional monitoring. care Schedule of visits reviewed. Some visits may be conducted via phone/video during Covid-19 pandemic. MD call group discussed. Nurse line for concerns between appointments Labs: routine initial labs; see orders for additional labs Ultrasound: early OB ultrasound for viability and to confirm dating reviewed. MFM & genetic screening/testing: desires NIPS Referral to Healthy Beginnings: no Low dose aspirin for the prevention of preeclampsia: yes COVID vaccine: never Return in 4 weeks for NOB2 with MD, sooner as needed Problems: AMA - NIPS ordered - L2 US ordered - Start ASA 81 mg daily at 12w - Growth US at 32w REJI - Stable, no meds - EPDS=9 QUENTIN - Reassurance provided - Recommend pelvic rest for 1 week after bleeding resolves N/V - Phenergan to pharmacy Return in 4 weeks for NOB2 with MD, sooner as needed Maria Dolores Del Real APRN, SEBASTIÁN * Laura Courtney LPN - 07/07/2023 8:30 AM CDT Patient's nausea and vomiting objectively [...] or dry heaves without bringing anything up? 7 or more (5 points) PUQE Scorin-12- Moderate nausea and vomiting documented in this encounter Plan of Treatment Upcoming Encounters Date Type Department Care Team (Late st Contact Info) Description 09/12/2023 3:20 PM CDT Appointment [facility]SPECIAL EDUCATION PARAPROFESSIONAL [address] [place] [address] [phone] Miranda Metzger DO [address] [place] [address] [phone] 09/19/2023 10:00 AM CDT Appointment [facility] [address] [place] [address] [phone] Maria Dolores Del Real, MAT PUNCHER, BULL RIDER [address] [place] [address] [address] [place], [place] [phone] 09/19/2023 11:00 AM CDT Appointment [facility] [address] [place] [address] [phone] Shaggy Smith MD [address] [place] [address] [address] [place], [place] [phone] 10/13/2023 9:00 AM CDT Appointment [facility]-SPECIAL EDUCATION PARAPROFESSIONAL [address] [place] [address] [phone] Maria Dolores Del Real MAT PUNCHER, BULL RIDER [address] [place], [place] [phone] Scheduled Orders Name Type Priority Associated Diagnoses Orde r Schedule MFM US OB Detailed Anatomy Imaging New Routine Supervision of high risk in first trimester Primigravida of advanced maternal age in first trimester Expected: 09/17/2023 (Approximate), Expires: 09/16/2024 Scheduled Referrals Name Type Priority Associated Diagnoses Orde r Schedule [facility] Services Referral Routine Supervision of high risk in first trimester Primigravida of advanced maternal age in first trimester Ordered: 07/07/2023 documented as of this encounter Procedures Procedure Name Priority Date/Time Associated Diagnosis Comments CHLAMYDIA & GC (14 YEARS & OLDER) Routine 07/07/2023 10:00 AM CDT Supervision of high risk in first trimester OB CLINIC ULTRASOUND LIMITED Routine 07/07/2023 Supervision of high risk in first trimester Primigravida of advanced maternal age in first trimester Subchorionic hematoma in first trimester, single or unspecified fetus documented in this encounter Results * M US OB First Trimester Ultrasound (08/01/2023 8:59 [...] the original result were not included. ?? [facility] [address] [facility], [address] [place] [address] Dept Dept Patient Name: Alisia Velasquez ??Referred By: Attending: Maria Dolores Del Real APRN, SEBASTIÁN Smith MD Patient ??Cap Maker: Dorothy Moran RDMS , Age: 4 1985, [...] grossly normal Nasal Bone appears normal ??Cardiac Beulah appears normal Maxilla appears normal ??3 Vessel [...] still recommended. ?? Maria Dolores Del Real APRN, CNP [facility] US * Chlamydia & GC (14 Years and Older): Vagina (07/07/2023 10:00 AM CDT) [facility] Chlamydia Trachomatis STD Not Detected Not Detected 07/08/2023 1:20 AM CDT [facility] N. gonorrhoeae STD Not Detected Not Detected 07/08/2023 1:20 AM CDT [facility] Swab STD SPECIMEN FROM VAGINA / Unknown Non-blood Collection / Unknown 07/07/2023 10:00 AM CDT 07/07/2023 10:02 AM CDT [facility] - 07/08/2023 1:20 AM CDT Test performed by Cook Larder Mediated Amplification (TMA). Maria Dolores Del Real APRN, CNP LAB_1 [facility] [address] [id number] * Panoraor NIPT (07/07/2023 9:48 AM CDT) [facility] See Scanned Report 07/16/2023 10:34 AM CDT [employer]. Blood Venipuncture / Unknown 07/07/2023 9:48 AM CDT 07/07/2023 9:48 AM CDT Maria Dolores Del Real APRN, CNP LAB_1 [facility]NOLD ALCARAZ. [address], [address] [place] [address] * Treponema Screen (Syphilis) (07/07/2023 9:48 AM CDT) Treponema Screen Result 0.127 {s_co_ratio } 07/07/2023 4:38 PM CDT [facility] Treponema Screen Interpretation Non Reactive Non Reactive 07/07/2023 4:38 PM CDT [facility] Blood Venipuncture / Unknown 07/07/2023 9:48 AM CDT 07/07/2023 9:48 AM CDT Maria Dolores Del Real APRN, CNP LAB_1 Performing Organization Address City/[facility]/ZIP Co de Phone Number [facility] [place] [address], [facility] * (ABNORMAL) Urine Culture (07/07/2023 9:48 AM CDT) Pathologist [facility] Urine Culture Growth(A) 07/08/2023 9:14 PM [facility] Urine Culture <10,000 CFU/mL Mixed Bacterial Growth 07/08/2023 9:14 PM T [facility] Comment: Mixed Bacterial Growth indicates the specimen is likely contaminated at collection with urogenital and/or fecal nicole. The presence of organisms at <10,000 cfu/ml in culture, UTI unlikely. Urine URINE SPECIMEN COLLECTION, CLEAN CATCH / Unknown Non-blood Collection / Unknown 07/07/2023 9:48 AM CDT 07/07/2023 9:48 AM CDT Maria Dolores Del Real APRN, CNP LAB_[address] [address], [facility] * Rubella Immune Status, IgG (07/07/2023 9:48 AM CDT) Rubella Units 3.84 07/08/2023 10:19 AM CDT [facility] Comment:The magnitude of the measured result, above the cutoff, is not indicative of the amount of antibody present. Rubella Intepretation Immune Immune 07/08/2023 10:19 AM CDT [facility] Blood Venipuncture / Unknown 07/07/2023 9:48 AM CDT 07/07/2023 9:48 AM CDT Maria Dolores Del Real APRN, BULL RIDER LAB_1 [facility] [address] * Rapid Drug Panel, Urine (with Confirmation) without THC (07/07/2023 9:48 AM CDT) Pathologist [facility] Amphetamines Screen Not Detected Not Detected 07/07/2023 4:08 PM CDT [facility] Barbiturates Screen Not Detected Not Detected 07/07/2023 4:08 PM CDT [facility] Benzodiazepines Screen Not Detected Not Detected 07/07/2023 4:08 PM CDT [facility] Buprenorphine Screen Not Detected Not Detected 07/07/2023 4:08 PM CDT [facility] Cocaine Metabolite Screen Not Detected Not Detected 07/07/2023 4:08 PM CDT [facility] Methadone Screen Not Detected Not Detected 07/07/2023 4:08 PM CDT [facility] Opiates Screen Not Detected Not Detected 07/07/2023 4:08 PM CDT [facility] Oxycodone Screen Not Detected Not Detected 07/07/2023 4:08 PM CDT [facility] Phencyclidine (PCP) Screen Not Detected Not Detected 07/07/2023 4:08 PM CDT [facility] Creatinine, Urine, Random 275 >20 mg/dL 07/07/2023 4:08 PM CDT [facility] Urine Non-blood Collection / Unknown 07/07/2023 9:48 AM CDT 07/07/2023 9:48 AM CDT Narrative [facility] - 07/07/2023 4:08 PM CDT The [...] Real APRN, CNP LAB_1 Performing Organization Address [facility] de Phone Number [facility] [address] [place] [address] * HIV 1/2 Ag/Ab 4th Generation (07/07/2023 9:48 AM CDT) [facility] HIV 1/2 Antigen/Antib monica (4th generation) Negative (Non Reactive) Negative (Non Reactive) 07/07/2023 4:39 PM CDT [facility] Comment:HIV-1 p24 Antigen an d HIV-1/HIV-2 Antibody not detected Blood Venipuncture / Unknown 07/07/2023 9:48 AM CDT 07/07/2023 9:48 AM CDT Maria Dolores Del Real APRN, CNP LAB_1 Performing Organization Address [facility] Phone Number [facility] [address] [place] [address] * Hgb A1C (07/07/2023 9:48 AM CDT) [facility] Hemoglobin A1C 5.0 <=5.6 % 07/07/2023 8:20 PM CDT [facility] Estimated Average Glucose (Calc) 97 < 117 mg/dL 07/07/2023 8:20 PM CDT [facility] Comment:Estimated average gl ucose (eAG) converts A1c into glucose units (mg/dL) and estimates average glucose over the past approximately 3 months. The eAG reference interval (<117 mg/dL) corresponds to an A1c of <5.7%. Blood Venipuncture / Unknown 07/07/2023 9:48 AM CDT 07/07/2023 9:48 AM CDT Maria Dolores Del Real APRN, CNP LAB_1 Performing Organization Address [facility] Co de Phone Number [facility] [address] * Hepatitis C Antibody, with Reflex (07/07/2023 9:48 AM CDT) Pathologist [facility] Hepatitis C Antibody Negative (Non Reactive) Negative (Non Reactive) 07/07/2023 4:39 PM CDT [facility] Comment:Antibodies to HCV no t detected. Does not exclude the possiblity of exposure to HCV. Blood Venipuncture / Unknown 07/07/2023 9:48 AM CDT 07/07/2023 9:48 AM CDT Maria Dolores Del Real APRN, CNP LAB_1 Performing Organization Address [facility] de Phone Number [facility] [address] [place] [address] * Hepatitis B Surface Antigen (07/07/2023 9:48 AM CDT) Pathologist [facility] Hepatitis B Surface Antigen Negative (Non Reactive) Negative (Non Reactive) 07/07/2023 4:38 PM CDT [facility] Blood Venipuncture / Unknown 07/07/2023 9:48 AM CDT 07/07/2023 9:48 AM CDT Maria Dolores Del Real APRN, CNP LAB_1 Performing Organization Address [facility] Co de Phone Number [facility] [address] * Complete Blood Count-No Diff (07/07/2023 9:48 AM CDT) Pathologist [facility] WBC 9.5 3.5 - 10.5 x10(9)/L 07/07/2023 2:02 PM CDT [facility] RBC 4.56 3.90 - 5.03 x10(12)/L 07/07/2023 2:02 PM T [facility] Hemoglobin 13.7 12.0 - 15.5 g/dL 07/07/2023 2:02 PM [facility] HCT 39.5 34.9 - 44.5 % 07/07/2023 2:02 PM [facility] MCV 86.6 80.0 - 100.0 fL 07/07/2023 2:02 PM [facility] MCH 30.0 27.6 - 33.3 pg 07/07/2023 2:02 PM [facility] MCHC 34.7 31.5 - 35.2 g/dL 07/07/2023 2:02 PM [facility] RDW 12.4 11.9 - 15.5 % 07/07/2023 2:02 PM [facility] Platelets 246 150 - 450 x10(9)/L 07/07/2023 2:02 PM [facility] Automated NRBC 0 <=0 /100 WBC 07/07/2023 2:02 PM [facility] Blood Venipuncture / Unknown 07/07/2023 9:48 AM CDT 07/07/2023 9:48 AM CDT Maria Dolores Del Real APRN, CNP LAB_1 Performing Organization Address City/[facility]/ZIP Co de Phone Number [facility] [address] [place] [address] * Blood Type (07/07/2023 9:48 AM CDT) ABO A 07/07/2023 4:42 PM CDT [facility] RH Positive 07/07/2023 4:42 PM CDT [facility] Blood Venipuncture / Unknown 07/07/2023 9:48 AM CDT 07/07/2023 9:48 AM CDT Maria Dolores Del Real APRN, CNP LAB_1 Performing Organization Address City/[facility]/ZIP Co de Phone Number [facility] [address] [place], [place] [phone] [place] [address] * Antibody Screen (07/07/2023 9:48 AM CDT) Antibody Screen Interpretation Negative 07/07/2023 4:42 PM CDT [facility] Blood Venipuncture / Unknown 07/07/2023 9:48 AM CDT 07/07/2023 9:48 AM CDT Maria Dolores Del Real APRN, CNP LAB_1 [facility] [address] [place], [place] [phone] [place] [address] * OB CLINIC ULTRASOUND LIMITED (07/07/2023) Anatomical Region Laterality Modality Other Impressions 07/07/2023 SI[facility] FHR 176 bpm Gross movement visualized Maria Dolores Del Real APRN, CNP PN CLINIC US ORDERABLES documented in this encounter Visit Diagnoses Diagnosis Supervision of high risk in first trimester- Primary Unspecified high-risk Primigravida of advanced maternal age in first trimester Subchorionic hematoma in first trimester, single or unspecified fetus Screen for STD (sexually transmitted disease) Screening examination for venereal disease Nausea/vomiting in Unspecified vomiting of , unspecified as to episode of care Supervision of high risk in first trimester Unspecified high-risk Primigravida of advanced maternal age in first trimester documented in this encounter Care Teams Floater Operator Relationship Specialty [place] [address] [place] [address] PCP - General Family Practice 11/03/20 documented as of this encounter
--- OUTSIDE RECORDS SUMMARY | 2023-09-08 23:13 | XMS_ITS | Encounter Summary ---
Author Organization [employer] Address [address], [place] [address] Care Team Providers Care White Washer Name Role Phone Randal Joe MD Primary Care Provider Reason for Visit * Reason Comments Appointment Questions Encounter Details Date Type Department Care Team (Late st Contact Info) Description 07/13/2023 Telephone [facility]-REVENUE STAMPER [address] [facility], [address] [phone] Maria Dolores Del Real, SPECIAL AGENT FBI, CHANNEL SALES DIRECTOR [address] [facility] [address] [place] [address] Appointment Questions Social History Tobacco Use Types Packs/Day [...] Nursing Notes * Radha Lund, RN - 07/13/2023 9:26 AM CDT Pt calling to see if she needs to have an additional US done. Pt was seen 07/06 for her initial OB visit and a bedside US done showing normal FHR activity and movement. Prior to her NOB1 pt had a formal US done in ED when she was seen for bleeding in early . Small subchorionic Hemmorage wasnoted. PT worried because she had an US done in ED on 06/25 and it showed subchorionic hemmorhage at2cm and now it is 2.4 cm. Pt wondering if another US needed? Informed pt due to recent Ultrasounds done and one bedside US done in clinic last week that was normal and reaussuring provider did not order another additional one prior to her one scheduled end of the month.Pt has her next US scheduled end of the month with M. Informed pt her QUENTIN is still small and typically these resolve on their own and she needs to call with any bleeding she is experiencing. Pt very anxious about this. Informedpt it is very common to see this in and again informed her these typically resolve. Pt felt better after discussing with nurse. Will call with any further questions /concerns. documented in this encounter Plan of Treatment Upcoming Encounters Date Type Department Care Team (Late st Contact Info) Description 09/12/2023 3:20 PM CDT Appointment [facility]-REVENUE STAMPER [address] [facility], [address] [phone] [place] [address] Guevara [address] [place] [phone] 09/19/2023 10:00 AM CDT Appointment [facility] [address] [facility], [address] [phone] Maria Dolores Del Real, SPECIAL AGENT FBI, CHANNEL SALES DIRECTOR [address] [place] [address] 09/19/2023 11:00 AM CDT Appointment [facility] [address] [place] [address], [address] [place] [phone] Shaggy Smith MD [address] [place] [address] Dr Gue[address]a [address] [facility] [address] 10/13/2023 9:00 AM CDT Appointment [facility]-REVENUE STAMPER [address] [facility], [facility] [address] [place] [phone] Maria Dolores Del Real APRN, CHANNEL SALES DIRECTOR [address] [place] [place] [address] documented as of this encounter Visit Diagnoses Not on filedocumented in this encounter Care Teams White Washer Relationship Specialty [place] [address] [place] [address] PCP - General Family Practice 11/03/20 documented as of this encounter
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
--- OUTSIDE RECORDS SUMMARY | 2023-09-08 23:13 | XMS_ITS | Encounter Summary ---
Author Organization [employer] Address [address], [place] [address] Care Team Providers Care Delivery Crew Worker Name Role Phone Randal Joe MD Primary Care Provider [phone] Reason for Visit * Reason Comments Concerns Encounter Details Date Type Department Care Team (Late st Contact Info) Description 06/27/2023 Telephone [facility]-SUPERVISOR COREMAKER [address] [facility] [address] [place] [address] [place] [address] [facility] [address] [place] [address] Concerns Social History Tobacco Use [...] Nursing Notes * Carin Root RN - 06/27/2023 10:05 AM CDT Called patient with message from provider, see note. Patient verbalizes understanding and has no further questions or concerns. Would like a bedside US at NOB1 if she can't have one sooner than 1-2 days prior. Future Appointments Provider Department Center 07/07/2023 8:30 AM Maria Dloores Del Real APRN, SEBASTIÁN [facility]-SUPERVISOR COREMAKER [facility] 08/04/2023 8:30 AM Sofiya Vo MD [facility]-SUPERVISOR COREMAKER [facility] * Miranda Metzger DO - 06/27/2023 9:18 AM CDT Subchorionic hematomas develop as the placenta is forming so it is normal to not be present on one US and then seen a day or more later. Depending on location and size she may or may not have bleeding and/or cramping. It is ok to monitor and no need to repeat US. If she wants a repeat US a bedside one at her NOB1 or formal one before her NOB1 visit (either that day or day before), can be done. Ifbright red bleeding or severe cramping she should call back. * Minoo Brumfield - 06/27/2023 8:38 AM CDT Reason for Call: Clinician input needed on symptom based concern. Next Steps: Document further recommendations and route to appropriate person or pool. Caller IS expecting a call back from Care Team. Additional Information: Patient calling 9 weeks . Noted brown discharge leaking out on Tuesday. This continued for 24 hours, and patient went to ED on Tuesday for further evaluation. Ultrasound completed in ED, showing subchorionic hematoma. Patient was instructed to have f/u ultrasound completed with OB. Yumikotent very concerned about hematoma and would like repeat ultrasound. States had ultrasound on 06/21 in the clinic, and no hematoma noted. Wondering how this could happen/form so quickly. No current bleeding noted. Only notes occasional cramps that has been experiencing throughout the first trimester. Denies bleeding, or severe/constant pain. States work is busy and stressful, and worried about the well being of . Would like recommendations. Offered appointment today, but patient declined stating would not be able to get away from work. Would like any reassurance and recommendations for repeat ultrasound and timing. Routed to [facility] to advise. documented in this encounter Plan of Treatment Upcoming Encounters Date Type Department Care Team (Late st Contact Info) Description 09/12/2023 3:20 PM CDT Appointment [facility]-SUPERVISOR COREMAKER [address] [place] [phone] [place] [address] [place] [address] Dr Guevara [address] [place] [phone] 09/19/2023 10:00 AM CDT Appointment [facility] [address] [place] [phone] Maria Dolores Del Real WEB SITE SPECIALIST, MOP MACHINE OPERATOR [address] [place] [address] Dr [place] [place], [place] [phone] 09/19/2023 11:00 AM CDT Appointment [facility] [address] [place] [phone] Shaggy Smith MD [address] [place] [address] [place] [address] [address] [place], [place] [address] 10/13/2023 9:00 AM CDT Appointment [facility]-SUPERVISOR COREMAKER [address] [place] [phone] Maria Dolores Del Real APRN, MOP MACHINE OPERATOR [address] [place] [address] Dr [place], [place] [phone] documented as of this encounter Visit Diagnoses Not on filedocumented in this encounter Care Teams Delivery Crew Worker Relationship Specialty [place] [address] [place] [address] PCP - General Family Practice 11/03/20 documented as of this encounter
--- OUTSIDE RECORDS SUMMARY | 2023-09-08 23:13 | XMS_ITS | Encounter Summary ---
Author Organization [facility] Address [address] [place] [address] Care Team Providers Care Various Exceptionalities Teacher Name Role Phone Randal Joe MD Primary Care Provider [phone] Encounter Details Date Type Department Care Team (Late st Contact Info) Description 06/13/2023 E-Visit [facility]-DIETITIAN TEACHING [address] [place] [address], [address] [phone] [place] [address] Social History Tobacco Use Types Packs/Day Years [...] Info) Description 09/12/2023 3:20 PM CDT Appointment [facility]-DIETITIAN TEACHING [address] [facility], [address] [place] [address] [place] [address] [address] 09/19/2023 10:00 AM CDT Appointment [facility] [address] [facility], [address] [place] [phone] Maria Dolores Del Real APRN, BALLAST INSPECTOR [address] Guevara [address] [place] [address] [phone] 09/19/2023 11:00 AM CDT Appointment [facility] [address] [place] [address], [address] [place] [phone] Shaggy Smith MD [address] [place] [address] 275 [place], [place] [phone] 10/13/2023 9:00 AM CDT Appointment [facility]-DIETITIAN TEACHING [address] [facility], [facility] [address] [place] [phone] Maria Dolores Del Real MEDICAL RESEARCH TECH, BALLAST INSPECTOR [address] [phone] documented as of this encounter Visit Diagnoses Not on filedocumented in this encounter Care Teams Various Exceptionalities Teacher Relationship Specialty [place] [address] [place] [address] PCP - General Family Practice 11/03/20 documented as of this encounter
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
--- OUTSIDE RECORDS SUMMARY | 2023-09-08 23:13 | XMS_ITS | Encounter Summary ---
Author Organization [facility] Address [address] [place] [address] Care Team Providers Care Shot Lighter Name Role Phone Randal Joe MD Primary Care Provider [phone] Encounter Details Date Type Department Care Team (Late st Contact Info) Description 06/15/2023 E-Visit [facility]-FINANCIAL SPECIALIST [address] [place] [phone] [place] [address] Social History Tobacco Use Types Packs/Day Years Used Date Smoking Tobacco: Former Cigarettes Q uit: 08/28/2017 Smokeless Tobacco: Never Alcohol Use Standard Drinks/Week Comments Yes 0 (1 standard drink = 0.6 oz pur e alcohol) occ PHQ-2 Answer Date Recorded PHQ-2 Score 2 04/27/2022 Depression Answer Date Recor ded Last EPDS Total Score 9 07/07/2023 Last EPDS Self Harm Result 0-->never 07/06 Sex and Gender Information Value Date Recorded Sex Assigned at Not on file Gender Identity Not on file Sexual Orientation Not on file documented as of this encounter Plan of Treatment Upcoming Encounters Date Type Department Care Team (Late st Contact Info) Description 09/12/2023 3:20 PM CDT Appointment [facility]-FINANCIAL SPECIALIST [address] [facility], [facility] [address] [place] [address] [place] [address] [address] [place], [place] [address] 09/19/2023 10:00 AM CDT Appointment [facility] [address] [place] [address] [address] [place] [phone] Maria Dolores Del Real APRN, CUTTER FINISHER [address] Guevara [place], [place] [phone] 09/19/2023 11:00 AM CDT Appointment [facility] [address] [place] [phone] Shaggy Smith MD [address] [place] [phone] 10/13/2023 9:00 AM CDT Appointment [facility]-FINANCIAL SPECIALIST [address] [place] [phone] Maria Dolores Del Real, KATELYN, CUTTER FINISHER [address] Guevara Mason [place], [place] [address] documented as of this encounter Visit Diagnoses Not on filedocumented in this encounter Care Teams Shot Lighter Relationship Specialty [place] [address] [place] [address] PCP - General Family Practice 11/03/20 documented as of this encounter
--- OUTSIDE RECORDS SUMMARY | 2023-09-08 23:13 | XMS_ITS | Encounter Summary ---
Author Organization [employer] Address [address] [address] Care Team Providers Care Building Trades Teacher Name Role Phone Randal Joe MD Primary Care Provider [phone] Reason for Visit * Procedure/Equipment (Routine) - Incomplete Specialty Diagnoses / Procedures Referred By Contac t Referred To Contact Diagnoses Early stage of Procedures US OB <14 Weeks w EV Single Follow Up Growth US OB < 14 [place] [address] [place] [id number] Referral ID Status Reason Start Date Expiration Date V isits Requested Visits Authorized [id number] Incomplete 06/22/2023 09/20/2024 1 1 Encounter Details Date Type Department Care Team (Latest Contact Info) Description 06/22/2023 8:00 AM CDT Ancillary Procedure [facility]-Ultrasound [address] [facility], [address] [place] [address] [place] [address] [address] [place] [id number] Early stage of Social History Tobacco Use Types Packs/Day Years [...] Info) Description 09/12/2023 3:20 PM CDT Appointment [facility]-FARM ASSISTANT [address] [place] [address] [phone] Miranda Metzger DO [address] [place] [address] Dr Gamez [place], [place] [phone] 09/19/2023 10:00 AM CDT Appointment [facility] [address] [place] [address] [phone] Maria Dolores Del Real, FIELD DIRECTOR, STRUCTURAL DRAFTER [address] [place] [address] Dr Gamez [place], [place] [phone] 09/19/2023 11:00 AM CDT Appointment [facility] [address] [place] [address] [phone] Shaggy Smith MD [address] [place] [address] [address] [place] [address] 10/13/2023 9:00 AM CDT Appointment [facility]-FARM ASSISTANT [address] [place] [address] [phone] Maria Dolores Del Real, FIELD DIRECTOR, STRUCTURAL DRAFTER [address] Gamez [place], [place] [phone] documented as of this encounter Procedures Procedure Name Priority Date/Time Associated Diagnosis Comments US OB < 14 WEEKS W EV SINGLE FOLLOW UP GROWTH Routine 06/22/2023 8:16 AM CDT Early stage of documented in this encounter Results * US OB <14 Weeks w EV [...] cm ovoid hypoechoic area. Gestational sac: Unremarkable. Kenmore-rump length measures 1.8 cm, corresponding to 8w2d [...] 1.2 cm ovoidhypoechoic area. Gestational sac: Unremarkable. Kenmore-rump length measures 1.8 cm, corresponding to 8w2d [...] attention onfollow-up. Sofiya Vo MD RAD US documented in this encounter Visit Diagnoses Diagnosis Early stage of documented in this encounter Care Teams Building Trades Teacher Relationship Specialty [place] [address] [place] [address] PCP - General Family Practice 11/03/20 documented as of this encounter
--- OUTSIDE RECORDS SUMMARY | 2023-09-08 23:13 | XMS_ITS | Encounter Summary ---
Author Organization [employer] Address [address], [place] [address] Care Team Providers Care Dancing Instructor Name Role Phone Randal Joe MD Primary Care Provider [phone] Reason for Visit * Reason Comments MENSTRUAL, MENSTRUATION, ABSENT Encounter Details Date Type Department Care Team (Late st Contact Info) Description 06/24/2023 11:30 AM CDT [facility] [address] [place] [address] Nurse Intake, P6500 Ob Missed menses (Primary Dx) Social History Tobacco Use Types [...] on file documented as of this encounter Patient Instructions * Attachments The following attachments cannot be sent through Care Everywhere. * !Seil-zbz-Renoxzy Medications: To treat common symptoms during (Fijian) * !Nausea in (Fijian) * : When to Call (Up to 20 Weeks): General Info (Fijian) documented in this encounter Progress Notes * Jaki Stanton RN - 06/24/2023 11:30 AM CDT RN OB Intake Visit Alisia Velasquez is a 38 y.o. female, : is a planned Preferred Care Locations: Clinic Preference: ADMISSIONS ASSISTANT/MD Rodgers Plans to deliver at Hospital for Delivery : [facility] Provider care models, preferred locations, and expected plan for care reviewed with patient. 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 Hx SAB/D&C 12/30 Hx IAB. Residence: Single Family Home Pets: 1 Dog. Other important social information/history: REPEAT INTAKE<< Struggling with anxiety this . Seen in ED (review chart notes)- US done- SIUP, FHR detected, JENNIFER 01/30/24 CareEverwhere/External Records: CareEverywhere available and up to date. Packing Machine Pilot Can Router History: PreGravida Weight: 185 lb (Estimated) Number of living children: 0 OB History Para Term AB Living 3 0 0 0 2 0 SAB IAB Ectopic Multiple Live Births 1 1 0 0 0 # Outcome Date GA Lbr Ian/2nd Weight Sex Delivery Anes PTL Lv 3 Current 2 SAB 12/24/22 FD 1 IAB Obstetric Comments 12/2022- SAB/D&C Menstrual History: LMP: Patient's last menstrual period was 04/30/2023 (exact date). +UPT:05/22/23 (estimated) This is a planned . Patient was actively trying for 2-3 cycles to conceive. 06/24/2023 11:33 AM MENSTRUAL TRACKING Period Pattern Regular Pap Hx: Pap Interpretation Date Value Ref Range Status 03/26/2022 Final (NILM) Negative for intraepithelial lesion or malignancy. Current Symptoms: Pt states she is experiencing some nausea but no vomiting. Encouraged to maintain adequate fluid intake and try smaller, more frequent meals. Patient education for Nausea and Vomiting in , and Morning Sickness to be provided to patient in AVS. Denies vaginal bleeding, pelvic pain, and other concerning symptoms. GENERAL HEALTH STATUS & HISTORY: Past Medical History: Diagnosis Date Arthritis Complication of anesthesia Depression Female infertility Heartburn Irritable bowel syndrome Miscarriage 12/2022 Obesity (HRC) Pap smear abnormality of cervix STD (sexually transmitted disease) (HRC) Urinary tract infection, site not specified Infection History: Varicella Immune (Vaccine) Hx STD Surgical/Procedure History: Past Surgical History: Procedure Laterality Date HX APPENDECTOMY suction d&c 12/2022 missed Medications: Vitamin: Patient is currently taking a vitamin. Pt medications, allergies and preferred pharmacy reviewed. Current Outpatient Medications Medication Sig Dispense Refill acetaminophen (TYLENOL) 325 MG tablet Take 1-2 Tablets (325-650 mg) by mouth. vitamin-ferrous fumarate-folic acid (PRENATALPLUS) 27-1 MG tablet Take 1 Tablet by mouth daily. Pt agrees to call OB clinicians with questions or concerns regarding medication use throughout thispregnancy and to notify any other prescribing clinicians of status. MENTAL HEALTH/SOCIAL STATUS & HISTORY: Anxiety & Depression. 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 COMPLETED WITH INTAKE VISIT: Ultrasound: US previously completed. IUP, Dating, and cardiac activity identified. Records available in EMR. Education Topics for pt to review from Your Guide to and HP/PN approved PatientEducation Resources: Diet and Nutrition: encourage fruits, vegetables, and low-fat protein sources avoid high glycemic index foods and simple carbs importance of adequate calcium discussed eating fish in listeriosis infection (including sources and prevention of Listeriosis) avoid nitrites in processed meats [facility] program discussed. Medications: Patient provided additional education piece of Sswj-xeb-Rnwpopb medications safe for use in . Sexual activity during discussed. Dental hygiene during discussed. Avoid use of alcoholic beverages, smoking and recreational drugs reminder provider. Patient provided resources materials as applicable. Environmental and work considerations and overall lifestyle choices in reviewed with patient. Benefits of exercise during reviewed. Patient encouraged to maintain regular physical activity. /Childbirth classes and options discussed. At next visit, provider to review records and establish formal plan of care. CCI Book/El: Patient provided information on how to access Your Guide to e-book and the free [employer] SystemsealthyPregnancy El. MyChart: Patient given guidance on how to use [employer] to message providers and review results during their . Additional links/resources sent for patient to review. Nurse line: Pt instructed to call nurseline with changes, questions or concerns. All other standard OB educational resources reviewed with patient as well as ways to access or obtain. Pt verbalizes her understanding and agrees with plan of care. No further questions at this time. Patient reminded of nurseline access 30/08. Intake Visit Completed via: phone chamfering machine operator Visit completed - June 24, 2023 Length of appointment: 14 minutes not including chart review or visit documentation. documented in this encounter Plan of Treatment Upcoming Encounters Date Type Department Care Team (Late st Contact Info) Description 09/12/2023 3:20 PM CDT Appointment [facility]-DOUGHNUT MACHINE OPERATOR [address] [facility], [address] [place] [phone] [place] [address] [address] [place] [address] 09/19/2023 10:00 AM CDT Appointment [facility] [address] [facility], [address] [place] [phone] Maria Dolores Del Real APRN, PAPER CONE MACHINE TENDER [address] [place] [address] 09/19/2023 11:00 AM CDT Appointment [facility] [address] [place] [address], [facility] [address] [place] [phone] Shaggy Smith MD [address] [place] [address] 275 [place] [address] 10/13/2023 9:00 AM CDT Appointment [facility]-DOUGHNUT MACHINE OPERATOR [address] [facility], [address] [phone] Maria Dolores Del Real APRN, PAPER CONE MACHINE TENDER [address] Guevara [address] [place] [address] documented as of this encounter Visit Diagnoses Diagnosis Missed menses- Primary Absence of menstruation documented in this encounter Care Teams Dancing Instructor Relationship Specialty [place] [address] [place] [address] PCP - General Family Practice 11/03/20 documented as of this encounter
--- OUTSIDE RECORDS SUMMARY | 2023-09-08 23:13 | XMS_ITS | Encounter Summary ---
Author Organization [employer] Address [address], [place] [address] Care Team Providers Care Hospice Care Transitions Coordinator Name Role Phone Randal Joe MD Primary Care Provider [phone] Reason for Visit * Reason Comments Concerns Encounter Details Date Type Department Care Team (Late st Contact Info) Description 07/08/2023 Telephone [facility] [address] [place] [address] [place] [address] [place] [address] Concerns Social History Tobacco Use Types Packs/Day [...] of this encounter Nursing Notes * Minoo Padilla RN - 07/08/2023 7:27 PM CDT Patient calling, currently 9w6d with multiple questions regarding Listeria infection. She at a bratwurst this morning that she later found out had been left out on the counter for a couple of hours. The bratuwurst was cooked and reheated again as well. She may be having some nausea. No fever or body aches. No vomiting or diarrhea at time of call. Advised per CDC.gov Call a healthcare provider right away if you have a fever and feel more tired and achy than normal. Patient voices understanding and is agreeable. No additional questions or concerns for PNNL at this time. documented in this encounter Plan of Treatment Upcoming Encounters Date Type Department Care Team (Late st Contact Info) Description 09/12/2023 3:20 PM CDT Appointment [facility]-WELDING MACHINE OPERATOR ELECTROSLAG [address] [place] [address], [address] [phone] [place] [address] [place] [address] [address] 09/19/2023 10:00 AM CDT Appointment [facility] [address] [place] [address] [phone] Maria Dolores Del Real, REGIONAL SALES MANAGER, ENGINE BOSS [address] [place] [address] [address] 09/19/2023 11:00 AM CDT Appointment [facility] [address] [place] [address], [address] [place] [phone] Shaggy Smith MD [address] [place] [address] [place] [address] [place] [address] 10/13/2023 9:00 AM CDT Appointment [facility]-WELDING MACHINE OPERATOR ELECTROSLAG [address] [facility], [address] [place] [phone] Maria Dolores Del Real APRN, ENGINE BOSS [address] [place] [address] [place] [address] documented as of this encounter Visit Diagnoses Not on filedocumented in this encounter Care Teams Hospice Care Transitions Coordinator Relationship Specialty [place] [address] [place] [address] PCP - General Family Practice 11/03/20 documented as of this encounter
--- OUTSIDE RECORDS SUMMARY | 2023-09-08 23:14 | XMS_ITS | Encounter Summary ---
Author Organization [facility] Address [address], [place] [address] Care Team Providers Care Application Support Intern Name Role Phone Randal Joe MD Primary Care Provider [phone] Encounter Details Date Type Department Care Team (Late st Contact Info) Description 06/25/2011 Correspondence External to No Primary/Referring, Phy REFERRAL AND AUTH Social History Tobacco Use Types Packs/Day Years Used Date Smoking Tobacco: Never Assessed Sex and Gender Information Value Date Recorded Sex Assigned at Not on file Gender Identity Not on file Sexual Orientation Not on file documented as of this encounter Progress Notes * No Primary/Referring, Phy - 06/25/2011 12:00 AM CDT documented in this encounter Plan of Treatment Upcoming Encounters Date Type Department Care Team (Late st Contact Info) Description 09/12/2023 3:20 PM CDT Appointment [facility]-COMPLEX CASE MANAGER [address] [facility], [address] [place] [phone] [place] [address] [place], [place] [address] 09/19/2023 10:00 AM CDT Appointment [facility] [address] [facility], [address] [place] [phone] Maria Dolores Del Real APRN, MOLDING TECHNICIAN [address] [place] [address] 09/19/2023 11:00 AM CDT Appointment [facility] [address] [place] [address], [address] [place] [phone] Shaggy Smith MD [address] [place] [address] 275 [facility] [place] [address] 10/13/2023 9:00 AM CDT Appointment [facility]-COMPLEX CASE MANAGER [address] [facility], [facility] [address] [place] [phone] Maria Dolores Del Real, KATELYN, MOLDING TECHNICIAN [address] [place] [address] documented as of this encounter Visit Diagnoses Not on filedocumented in this encounter Additional Health Concerns Infection Onset Date Last Indicated Resolved Time R/O COVID19 08/29/2019 08/29/2019 09/05/2019 3:17 AM CDT R/O COVID19 01/21/2020 01/21/2020 01/23/2020 1:47 AM ALUMINIZER R/O COVID19 12/09/2020 12/09/2020 12/10/2020 1:38 PM CDT documented as of this encounter Care Teams Application Support Intern Relationship Specialty [place] [address] [place] [address] PCP - General Family Practice 11/03/20 documented as of this encounter
--- OUTSIDE RECORDS SUMMARY | 2023-09-08 23:14 | XMS_ITS | Encounter Summary ---
Author Organization [employer] Address [address], [place] [address] Care Team Providers Care Pyrotechnics Press Tender Name Role Phone Randal Joe MD Primary Care Provider [phone] Reason for Visit * Reason Comments LAB RESULTS Encounter Details Date Type Department Care Team (Late st Contact Info) Description 06/11/2023 Telephone [facility] [address] [place] [address] [place] [address] [place], [place] [phone] LAB RESULTS Social History Tobacco Use Types [...] as of this encounter Nursing Notes * Idalmis San - 06/11/2023 8:21 AM CDT Spoke with patient. Patient calling regarding HCG lab results from 06/10/23. HC,208 on 06/07/23. HCG 12,892 and 06/10/23. JENNIFER: 01/31/24. 6 weeks on 06/08/23. Patient upset and crying on the phone. Denies abdominal pain, vaginal bleeding. Paged the on-call Michaela Lopez to consult. Dr. Lopez will call patient to discuss next steps. documented in this encounter Plan of Treatment Upcoming Encounters Date Type Department Care Team (Late st Contact Info) Description 09/12/2023 3:20 PM CDT Appointment [facility]-TRAFFIC DIRECTOR [address] [place] [address] [phone] Miranda Metzger DO [address] [place] [address] Dr Guevara [address] [place] [address] [phone] 09/19/2023 10:00 AM CDT Appointment [facility] [address] [place] [address] [phone] Maria Dolores Del Real, OSTEOPATHY DOCTOR, COUPON CLERK [address] [place] [address] Dr [place] [phone] 09/19/2023 11:00 AM CDT Appointment [facility] [address] [place] [address] [phone] Shaggy Smith MD [address] [place] [address] [address] [place], [place] [address] 10/13/2023 9:00 AM CDT Appointment [facility]-TRAFFIC DIRECTOR [address] [place] [address] [phone] Maria Dolores Del Real, OSTEOPATHY DOCTOR, COUPON CLERK [address] [place] [address] Dr Gamez [place], [place] [address] documented as of this encounter Visit Diagnoses Not on filedocumented in this encounter Care Teams Pyrotechnics Press Tender Relationship Specialty [place] [address] [place] [address] PCP - General Family Practice 11/03/20 documented as of this encounter
--- OUTSIDE RECORDS SUMMARY | 2023-09-08 23:14 | XMS_ITS | Encounter Summary ---
Author Organization [employer] Address [address], [place] [address] Care Team Providers Care Bus Washer Name Role Phone Randal Joe MD Primary Care Provider [phone] Encounter Details Date Type Department Care Team (Late st Contact Info) Description 05/30/2023 5:20 PM CDT Lab Visit [facility] [address] [place] [address] Bleeding in early (Primary Dx) Social History Tobacco Use Types [...] as of this encounter Progress Notes * Sofiya Vo MD - 05/30/2023 5:20 PM CDTAddended by: SOFIYA VO on: 06/01/2023 03:49 PM Modules accepted: Orders documented in this encounter Plan of Treatment Upcoming Encounters Date Type Department Care Team (Late st Contact Info) Description 09/12/2023 3:20 PM CDT Appointment [facility]-LANDSCAPE FOREMAN [address] [place] [address], [facility] [address] [place] [phone] Miranda [place]zger DO [address] [place] [address] Dr Guevara Mason [place], [place] [phone] 09/19/2023 10:00 AM CDT Appointment [facility] [address] [place] [address] [phone] Maria Dolores Del Real, OSTRICH FARM WORKER, FILLETER [address] [place] [address] Dr Guevara Mason [place], [place] [phone] 09/19/2023 11:00 AM CDT Appointment [facility] [address] [place] [address] [phone] Shaggy Smith MD [address] [place] [address] [phone] 10/13/2023 9:00 AM CDT Appointment [facility]-LANDSCAPE FOREMAN [address] [place] [address] [phone] Maria Dolores Del Real, OSTRICH FARM WORKER, FILLETER [address] [place] [address] Dr Guevara Mason [place], [place] [phone] documented as of this encounter Procedures Procedure Name Priority Date/Time Associated Diagnosis Comments HCG, QUANTITATIVE, SERUM Same Day 05/30/2023 5:02 PM CDT Bleeding in early documented in this encounter Results * (ABNORMAL) HCG, Quantitative, Serum (05/30/2023 5:02 PM CDT) HCG, Quantitative 1,314(H) <=4 mIU/mL 05/30/2023 9:23 PM CDT [facility] Blood Venipuncture / Unknown 05/30/2023 5:02 PM CDT 05/30/2023 5:02 PM CDT Narrative [facility] - 05/30/2023 9:23 PM CDT Expected ranges Negative: <5 mIU/mL Indeterminate: 5-25 mIU/mL Positive: >25 mIU/mL Suggest repeat testing of indeterminate result in 72 hours. Sofiya Vo MD LAB_1 [facility] [address] documented in this encounter Visit Diagnoses Diagnosis Bleeding in early - Primary Unspecified hemorrhage in early , unspecified as to episode of care documented in this encounter Care Teams Bus Washer Relationship Specialty [place] [address] [place] [address] PCP - General Family Practice 11/03/20 documented as of this encounter
--- OUTSIDE RECORDS SUMMARY | 2023-09-08 23:14 | XMS_ITS | Encounter Summary ---
Author Organization [employer] Address [address] [address] Care Team Providers Care Registered Occupational Therapist Name Role Phone Randal Joe MD Primary Care Provider [phone] Reason for Referral * Procedure/Equipment (Routine) - Incomplete Specialty Diagnoses / Procedures Referred By Contac t Referred To Contact Diagnoses Early stage of Procedures US OB <14 Weeks w EV Single Follow Up Growth US OB < 14 [place] [address] [facility] [address] [place] [id number] Referral ID Status Reason Start Date Expiration Date V isits Requested Visits Authorized [id number] Incomplete 06/22/2023 09/20/2024 1 1 Reason for Visit * Reason Comments CONSULT STI testing requeste d Encounter Details Date Type Department Care Team (Late st Contact Info) Description 06/08/2023 3:15 PM CDT Office Visit [facility]-INSURANCE ANALYST [address] [facility], [address] [place] [address] [place] [address] [address] [place] [address] Early stage of (Primary Dx); Routine screening for STI (sexually transmitted infection); Bradycardic baseline heart rate Social History Tobacco Use Types Packs/Day Years [...] Sign Reading Time Taken Comments Blood Pressure 112/67 06/08/2023 3:04 PM CDT Pulse 114 06/08/2023 3:04 PM CDT Temperature - - Respiratory Rate - - Oxygen Saturation - - Inhaled Oxygen Concentration - - Weight 83.9 kg (185 lb) 06/08/2023 3:04 PM CDT Height - - Body Mass Index 28.55 08/12/2022 7:57 AM CDT documented in this encounter Progress Notes * Sofiya Vo MD - 06/08/2023 3:15 PM CDTAddended by: SOFIYA VO on: 06/08/2023 03:31 PM Modules accepted: Orders * Sofiya Vo MD - 06/08/2023 3:15 PM CDT [facility] NOTE CC: ultrasound follow up, early , STI screening HPI: Alisia Velasquez here for the following concerns; Had pelvic ultrasound done today which showed a live IUP. She is happy and have started vitamins as soon as she found out her HCG was positive. She also would like to have STI screening. States she is not sure about her partner but not necessarily concerned. [place] is more concerned about having infection that could potentially put her at risk for miscarriage. She is particularly nervous since she has hx of early miscarriage. States she had noted bradycardia with last too. She is aware FHR for this baby is also bradycardic. Denies any other signs or symptoms at this point. PE: BP 112/67 (BP Location: Right Arm) Pulse (!) 114 Wt 185 lb (83.9 kg) LMP 04/30/2023 (Exact Date) BMI 28.55 kg/m?? General; A&O X 3, cooperative Cardiovascular; warm and well perfused Respiratory; normal breathing without difficulties Abdomen; soft, NTGR, no masses IMAGING IMPRESSION COMPARISON: 01/27/2023 TECHNIQUE: Transabdominal and transvaginal imaging was performed. FINDINGS: Gestational sac: Unremarkable. Small subchorionic hemorrhage measuring 1.1 x 0.8 x 1.2 cm. [place]-rump length measures 0.4 cm, corresponding to 6w1d gestational age. Gestational sac location: Normal JENNIFER 01/31/2024. Embryonic/ cardiac activity is identified with heart rate 101 bpm. Right Ovary: Measures 3.8 x 2.2 x 2.9 cm and contains a probable corpus luteum. Left Ovary: Measures 3.6 x 2.0 x 2.8 cm and shows a complex area with peripheral flow measuring 1.4x 1.6 x 1.4 cm, possibly a corpus [...] an estimated date of confinement of 01/31/2024. Specimen Collected: 06/08/23 08:37 A/P Alisia Velasquez here for ICD-10-CM 1. Early stage of Z34.90 2. Routine screening for STI (sexually transmitted infection) Z11.3 - discuss ultrasound results, despite of low FHR this does not mean she will necessarily have a loss, it does pose some risk but her HCG is also pretty reassuring. She will schedule NOB1 and at that point she can have BSUS at which point FHR will be reviewed. This should happen in 2 weeks. If no appointments available then ok to order US for FHR check in 2 weeks. - continue vitamins - CT/GC/Trichomonas, declines blood work up, swab ordered - reassured her oral progesterone does not have any benefits on preventing early miscarriage based on scientific data. - RTC for NOB1 and 2 Dr. Gilda Esparza 06/08/2023 documented in this encounter Plan of Treatment Upcoming Encounters Date Type Department Care Team (Late st Contact Info) Description 09/12/2023 3:20 PM CDT Appointment [facility]-INSURANCE ANALYST [address] [place] [address], [address] [phone] Miranda Metzger DO [address] [place] [address] [phone] 09/19/2023 10:00 AM CDT Appointment [facility] [address] [place] [phone] Maria Dolores Del Real BUILDING GUARD DEPUTY SHERIFF, FINANCIAL SERVICES EDUCATION CONSULTANT [address] [place] [address] Dr Gamez [place], [place] [phone] 09/19/2023 11:00 AM CDT Appointment [facility] [address] [place] [address], [address] [place] [phone] Shaggy Smith MD [address] [place], [place] [address]JUSTIN [place], [place] [phone] 10/13/2023 9:00 AM CDT Appointment [facility]-INSURANCE ANALYST [address] [place] [phone] Maria Dolores Del Real APRN, FINANCIAL SERVICES EDUCATION CONSULTANT [address] [place] [address] Dr Gamez [place], [place] [phone] documented as of this encounter Procedures Procedure Name Priority Date/Time Associated Diagnosis Comments TRICHOMONAS VAGINALIS, MOLECULAR DETECTION, ENDOCERVIX/VAGINA (14 YEARS AND OLDER) Routine 06/08/2023 3:29 PM CDT Routine screening for STI (sexually transmitted infection) documented in this encounter Results * Chlamydia & GC (14 Years and Older): Vagina (07/27/2023 11:24 AM CDT) Chlamydia Trachomatis STD Not Detected Not Detected 07/28/2023 12:[address] [facility] N. gonorrhoeae STD Not Detected Not Detected 07/28/2023 12:[address] [facility] Swab STD SPECIMEN FROM VAGINA / Unknown Non-blood Collection / Unknown 07/27/2023 11:24 AM CDT 07/27/2023 2:58 PM CDT Narrative [facility] - 07/28/2023 12:12 PM CDT Test performed by Medical Sales Representative Mediated Amplification (TMA). Sofiya Vo MD LAB_1 Performing Organization Address City/State/[facility] Co de Phone Number [facility] [address] * US OB <14 Weeks w [...] cm ovoid hypoechoic area. Gestational sac: Unremarkable. [place]-rump length measures 1.8 cm, corresponding to 8w2d [...] 1.2 cm ovoidhypoechoic area. Gestational sac: Unremarkable. [place]-rump length measures 1.8 cm, corresponding to 8w2d [...] onfollow-up. Sofiya Vo MD RAD US * Trichomonas vaginalis, Molecular Detection, Endocervix/Vagina (14 years and older) (06/08/2023 3:29PM CDT) Trich Vaginalis Amplified Not Detected Not Detected 06/09/2023 12:[address] [facility] Swab STD SPECIMEN FROM VAGINA / Unknown Non-blood Collection / Unknown 06/08/2023 3:29 PM CDT 06/08/2023 4:32 PM CDT Narrative [facility] - 06/09/2023 12:23 PM CDT Test performed by Medical Sales Representative Mediated Amplification (TMA). Sofiya Vo MD LAB_1 [facility] [address] documented in this encounter Visit Diagnoses Diagnosis Early stage of - Primary Routine screening for STI (sexually transmitted infection) Screening examination for venereal disease Bradycardic baseline heart rate Early stage of documented in this encounter Care Teams Registered Occupational Therapist Relationship Specialty [place] [address] [place] [address] PCP - General Family Practice 11/03/20 documented as of this encounter
--- OUTSIDE RECORDS SUMMARY | 2023-09-08 23:14 | XMS_ITS | Encounter Summary ---
Author Organization [employer] Address [address] [address] Care Team Providers Care Aging Room Operator Name Role Phone Randal Joe MD Primary Care Provider [phone] Encounter Details Date Type Department Care Team (Late st Contact Info) Description 06/01/2023 5:30 PM CDT Lab Visit [facility] [address] [facility] [place] [address] Bleeding in early Social History Tobacco Use Types Packs/Day Years [...] Info) Description 09/12/2023 3:20 PM CDT Appointment [facility]-MAJOR ACCOUNT MANAGER [address] [facility], [address] [place] [address] [place] [address] [place] [address] 09/19/2023 10:00 AM CDT Appointment [facility] [address] [facility], [address] [place] [phone] Maria Dolores Del Real APRN, SOLDERING MACHINE TENDER [address] [place], [place] [address] 09/19/2023 11:00 AM CDT Appointment [facility] [address] [facility], [address] [place] [phone] Shaggy Smith MD [address] [place] [address] [address] [place], [place] [phone] 10/13/2023 9:00 AM CDT Appointment [facility]-MAJOR ACCOUNT MANAGER [address] [facility], [address] [place] [phone] Maria Dolores Del Real APRN, SOLDERING MACHINE TENDER [address] [place] [address] Dr Guevara Mason [place], [place] [phone] documented as of this encounter Procedures Procedure Name Priority Date/Time Associated Diagnosis Comments HCG, QUANTITATIVE, SERUM Same Day 06/01/2023 4:59 PM CDT Bleeding in early documented in this encounter Results * (ABNORMAL) HCG, Quantitative, Serum (06/01/2023 4:59 PM CDT) HCG, Quantitative 3,049(H) <=4 mIU/mL 06/01/2023 9:32 PM CDT [facility] Blood Venipuncture / Unknown 06/01/2023 4:59 PM CDT 06/01/2023 4:59 PM CDT Narrative [facility] - 06/01/2023 9:32 PM CDT Expected ranges Negative: <5 mIU/mL Indeterminate: 5-25 mIU/mL Positive: >25 mIU/mL Suggest repeat testing of indeterminate result in 72 hours. Sofiya Vo MD LAB_1 [facility] [address] documented in this encounter Visit Diagnoses Diagnosis Bleeding in early Unspecified hemorrhage in early , unspecified as to episode of care documented in this encounter Care Teams Aging Room Operator Relationship Specialty [place] [address] [place] [address] PCP - General Family Practice 11/03/20 documented as of this encounter
--- OUTSIDE RECORDS SUMMARY | 2023-09-08 23:14 | XMS_ITS | Encounter Summary ---
Author Organization [employer] Address [address] [address] Care Team Providers Care Automatic Buffing Wheel Former Name Role Phone Randal Joe MD Primary Care Provider [phone] Encounter Details Date Type Department Care Team (Late st Contact Info) Description 06/10/2023 5:30 PM CDT Lab Visit [facility] [address] [facility] [place] [address] History of miscarriage Social History Tobacco Use Types Packs/Day Years [...] Info) Description 09/12/2023 3:20 PM CDT Appointment [facility]-TUMBLING BARREL PAINTER [address] [facility], [address] [place] [address] [place] [address] [address] [place] [address] 09/19/2023 10:00 AM CDT Appointment [facility] [address] [facility], [address] [place] [phone] Maria Dolores Del Real APRN, TELEPHONE CLEANER [address] [place], [place] [address] 09/19/2023 11:00 AM CDT Appointment [facility] [address] [facility], [address] [place] [phone] Shaggy Smith MD [address] [place] [address] 275 [facility] [place] [place] [phone] 10/13/2023 9:00 AM CDT Appointment [facility]-TUMBLING BARREL PAINTER [address] [facility], [facility] [address] [place] [phone] Maria Dolores Del Real APRN, TELEPHONE CLEANER [address] Guevara [address] [place] [phone] documented as of this encounter Procedures Procedure Name Priority Date/Time Associated Diagnosis Comments HCG, QUANTITATIVE, SERUM STAT 06/10/2023 5:28 PM CDT History of miscarriage documented in this encounter Results * (ABNORMAL) HCG, Quantitative, Serum (06/10/2023 5:28 PM CDT) HCG, Quantitative 12,892(H) <=4 mIU/mL 06/10/2023 9:36 PM CDT [facility] Blood Venipuncture / Unknown 06/10/2023 5:28 PM CDT 06/10/2023 5:28 PM CDT Narrative [facility] - 06/10/2023 9:36 PM CDT Expected ranges Negative: <5 mIU/mL Indeterminate: 5-25 mIU/mL Positive: >25 mIU/mL Suggest repeat testing of indeterminate result in 72 hours. Michaela Lopez MD LAB_1 [facility] [address] documented in this encounter Visit Diagnoses Diagnosis History of miscarriage Personal history of other genital system and obstetric disorders documented in this encounter Care Teams Automatic Buffing Wheel Former Relationship Specialty [place] [address] [place] [address] PCP - General Family Practice 11/03/20 documented as of this encounter
--- OUTSIDE RECORDS SUMMARY | 2023-09-08 23:14 | XMS_ITS | Encounter Summary ---
Author Organization [employer] Address [address], [place] [address] Care Team Providers Care Mechanical Engineer Name Role Phone Randal Joe MD Primary Care Provider [phone] Reason for Referral * Procedure/Equipment (Routine) - Incomplete Specialty Diagnoses / Procedures Referred By Contac t Referred To Contact Diagnoses Early stage of Procedures US OB < 14 [place] [address] [address] [place] [address] Referral ID Status Reason Start Date Expiration Date V isits Requested Visits Authorized [id number] Incomplete 06/14/2023 09/12/2024 1 1 Reason for Visit * Reason Comments LAB RESULTS CONSTIPATION Encounter Details Date Type Department Care Team (Late st Contact Info) Description 06/13/2023 Telephone [facility]-CHARGING CRANE OPERATOR [address] [facility], [address] [place] [address] [place] [address] [address] [place] [address] LAB RESULTS; CONSTIPATION Social History Tobacco Use Types Packs/Day [...] encounter Nursing Notes * Minoo Brumfield - 06/14/2023 11:40 AM CDT Patient returning call. Reviewed provider's note below. Patient verbalizes understanding and agreeswith plan. * Carin Root RN - 06/14/2023 11:38 AM CDT Attempted to contact patient. Message left to call back. * Sofiya Vo MD - 06/14/2023 11:30 AM CDT Oh I see, thanks for the clarification. No need to worry about the discrepancy since there is nothing we can do about lab accuracy and her last HCG level was reassuring. Lets then wait for repeat ultrasound as scheduled. Thanks AA * Sofiya Vo MD - 06/14/2023 11:00 AM CDT HCG at 28 000 should show evidence of an IUP and can confirm viability or not at this given moment.Ultrasound should be done sooner than later. Ordered. On regards lab discrepancy there is nothing we can do with that but I would not worry given her last HCG was reassuring. Thanks AA * Radha Lund RN - 06/13/2023 10:34 AM CDT Pt calling to f/u regarding HCG labs. Pt had an HCG done 06/09: 12,892. HCG on 06/06: 14,200 Pt spoke with [facility] provider Tuesday regarding decreasing HCG levels. Pt stated she went to ED on Tuesday for concerns of miscarriage. Hx of miscarriage with previous . US done and HCG done showing level of 28,206 and ER provider told pt there must have been a lab error with our lab causingthe HCG discrepancy but wanted pt to f/u with IT NETWORK ADMINISTRATOR this week. Pt denies any pain , bleeding. State s she did have some cramping in ED Tuesday but thinks it was r/t being constipated and her anxiety. Pain was relieved following BM that day. Pt worried about this lab discrepancy Furnace Reliner called the lab and spoke with them. No issues reported with instruments running the HCG labs. Routing to provider to advise. Pt was seen in clinic 06/07 for consult for f/u US. Plan to repeat US in 2 wks. Routing to provider to advise if another HCG needed or sooner appt for US for reassurance? FINDINGS: UTERUS: Single normal appearing intrauterine gestation sac. CRL: Measures 0.6 cm, equals 6 weeks 3 days. HEART RATE: 114 bpm. AMNIOTIC FLUID: Normal. PLACENTA: Not yet formed. No evidence for sub-chorionic hemorrhage. documented in this encounter Plan of Treatment Upcoming Encounters Date Type Department Care Team (Late st Contact Info) Description 09/12/2023 3:20 PM CDT Appointment [facility]-CHARGING CRANE OPERATOR [address] [place] [address], [address] [place] [phone] Miranda Metzger [place] [address] [place] [address] Dr Guevara [address] [place] [phone] 09/19/2023 10:00 AM CDT Appointment [facility] [address] [place] [address], [address] [place] [phone] Maria Dolores Del Real, TYPEWRITER OPERATOR AUTOMATIC, HEAVY LINE TECHNICIAN [address] [place] [address] Dr Guevara [address] [place] [address] 09/19/2023 11:00 AM CDT Appointment [facility] [address] [facility], [address] [place] [phone] hSaggy Smith MD [address] [facility] [address] [place] [phone] 10/13/2023 9:00 AM CDT Appointment [facility]-CHARGING CRANE OPERATOR [address] [facility], [address] [place] [phone] Maria Dolores Del Real APRN, HEAVY LINE TECHNICIAN [address] [place], [place] [phone] Scheduled Orders Name Type Priority Associated Diagnoses Orde r Schedule US OB < 14 Weeks Single Imaging New Routine Early stage of Expected: 06/14/2023 (Approximate), Expires: 09/12/2023 documented as of this encounter Visit Diagnoses Diagnosis Early stage of - Primary documented in this encounter Care Teams Mechanical Engineer Relationship Specialty [place] [address] [place] [address] PCP - General Family Practice 11/03/20 documented as of this encounter
--- OUTSIDE RECORDS SUMMARY | 2023-09-08 23:14 | XMS_ITS | Encounter Summary ---
Author Organization [employer] Address [address], [place] [address] Care Team Providers Care Car Sales Associate Name Role Phone Randal Joe MD Primary Care Provider [phone] Reason for Visit * Reason Comments CHEST PAIN Encounter Details Date Type Department Care Team (Late st Contact Info) Description 06/03/2023 Nurse Triage [facility]-OPTO MECHANICAL ENGINEER [address] [facility], [facility] [address] [place] [address] [place] [address] [facility] [address] [place] [address] CHEST PAIN Social History Tobacco Use Types Packs/Day Years [...] Nursing Notes * Radha Lund, RN - 06/03/2023 8:55 AM CDT Called pt back to see how she is doing and if pain worsening ,difficulty breathing Pt denies sxs worsening or needing the ambulance to come get her. States she is just a few minutes away from the hospital in [place]. * Radha Lund, RN - 06/03/2023 8:34 AM CDT Reason for Disposition Pain also in shoulder(s) or arm(s) or jaw Protocols used: Chest Wimu-TPLDM-TS Pt newly . Calling with chest pain that woke her up out of a sleep about 20 min ago. . States pain is in her upper back and shoulder. States she can feel her heart beating. Pain in her chest is a dull ache and can feel her heart beating fast. Denies difficulty breathing. No hx of heart problems. Pt has a hx of anxiety but states she does not think this is an anxiety attack since she is having this chest pain. Pt lives about 20-30 min from the nearest hospital. Does not feel like she needs 911 called and canmake it into the hospital. Informed pt if chest pain worsening, difficulty breathing she needs to call 911. Pt agreed. Advised to have someone take her in [place] and not to drive herself. Pt agreed. Pt also notes spotting after having intercourse last night. No heavy bleeding. Will be evaluated in ED. documented in this encounter Plan of Treatment Upcoming Encounters Date Type Department Care Team (Late st Contact Info) Description 09/12/2023 3:20 PM CDT Appointment [facility]-OPTO MECHANICAL ENGINEER [address] [facility], [address] [phone] [place] [address] Guevara [address] [place] [phone] 09/19/2023 10:00 AM CDT Appointment [facility] [address] [facility], [address] [phone] Maria Dolores Del Real, STAVE LOG CUT OFF SAW OPERATOR, CHILD CARE SUPERVISOR [address] Guevara [address] [place] [address] 09/19/2023 11:00 AM CDT Appointment [facility] [address] [place] [address], [address] [place] [phone] Shaggy Smith MD [address] [place] [address] 275 [facility] [place] [address] 10/13/2023 9:00 AM CDT Appointment [facility]-OPTO MECHANICAL ENGINEER [address] [facility], [facility] [address] [place] [phone] Maria Dolores Del Real APRN, CHILD CARE SUPERVISOR [address] [place] [address] documented as of this encounter Visit Diagnoses Not on filedocumented in this encounter Care Teams Car Sales Associate Relationship Specialty [place] [address] [place] [address] PCP - General Family Practice 11/03/20 documented as of this encounter
--- OUTSIDE RECORDS SUMMARY | 2023-09-08 23:14 | XMS_ITS | Encounter Summary ---
Author Organization [employer] Address [address] [address] Care Team Providers Care Blocklayer Name Role Phone Randal Joe MD Primary Care Provider [phone] Reason for Visit * Procedure/Equipment (Routine) - Incomplete Specialty Diagnoses / Procedures Referred By Contac t Referred To Contact Diagnoses Bleeding in early Procedures US OB <14 Weeks W EV Single US OB < 14 [place] [address] [address] [place] [address] Referral ID Status Reason Start Date Expiration Date V isits Requested Visits Authorized [id number] Incomplete 06/01/2023 08/30/2024 1 1 Encounter Details Date Type Department Care Team (Latest Contact Info) Description 06/08/2023 8:45 AM CDT Ancillary Procedure [facility]Ultrasound [address] [facility], [address] [place] [address] [place] [address] [address] [place] [address] Bleeding in early Social History Tobacco Use [...] Info) Description 09/12/2023 3:20 PM CDT Appointment [facility]-DATA INTEGRATION ANALYST [address] [place] [address] [phone] Miranda [place] [address] [place] [address] Dr Gamez [place], [place] [phone] 09/19/2023 10:00 AM CDT Appointment [facility] [address] [place] [address] [phone] Maria Dolores Del Real, CROSSING SUPERVISOR, TECHNICAL TRANSLATOR [address] [place] [address] Dr [address]z [place], [place] [phone] 09/19/2023 11:00 AM CDT Appointment [facility] [address] [place] [address], [address] [phone] Shaggy Smith MD [address] [place], [place] [address], [place] [phone] 10/13/2023 9:00 AM CDT Appointment [facility]-DATA INTEGRATION ANALYST [address] [place] [address] [phone] Maria Dolores Del Real CROSSING SUPERVISOR, TECHNICAL TRANSLATOR [address] [place] [address] Dr [address]z [place], [place] [phone] documented as of this encounter Procedures Procedure Name Priority Date/Time Associated Diagnosis Comments US OB <14 WEEKS W EV SINGLE Routine 06/08/2023 9:18 AM CDT Bleeding in early documented in this encounter Results * US OB <14 Weeks W EV Single (06/08/2023 9:18 AM CDT) Anatomical Region Laterality Modality Pelvis Ultrasound 06/08/2023 8:37 AM CDT Impressions 06/08/2023 10:41 AM CDT COMPARISON: 01/27/2023 TECHNIQUE: ??Transabdominal and transvaginal imaging was performed. ?? FINDINGS: Gestational sac: Unremarkable. Small subchorionic hemorrhage measuring 1.1 x 0.8 x 1.2 cm. Warm [place]-rump length measures 0.4 cm, corresponding to 6w1d [...] hemorrhage measuring 1.1x 0.8 x 1.2 cm. Warm [place]-rump length measures 0.4 cm, corresponding to 6w1d [...] date of confinement of01/31/2024. Sofiya Vo MD [facility] US documented in this encounter Visit Diagnoses Diagnosis Bleeding in early Unspecified hemorrhage in early , unspecified as to episode of care documented in this encounter Care Teams Blocklayer Relationship Specialty [place] [address] [place] [address] PCP - General Family Practice 11/03/20 documented as of this encounter
--- OUTSIDE RECORDS SUMMARY | 2023-09-08 23:14 | XMS_ITS | Encounter Summary ---
Author Organization [employer] Address [address], [place] [address] Care Team Providers Care Ip Network Architect Name Role Phone Randal Joe MD Primary Care Provider [phone] Reason for Visit * Reason Comments STD Exposure Encounter Details Date Type Department Care Team (Late st Contact Info) Description 06/07/2023 Nurse Triage [facility]-SCALP TREATMENT SPECIALIST [address] [facility], [facility] [address] [place] [address] [place] [address] [facility] [address] [place] [address] STD Exposure Social History Tobacco Use Types Packs/Day Years [...] encounter Nursing Notes * Minoo Brumfield - 06/07/2023 9:51 AM CDT Reason for Disposition Patient is worried they have a sexually transmitted infection (STI) Protocols used: STI [id number] Patient found out was unfaithful and possibly has STI. Would like to be tested for reassurance. Appointment scheduled. Problem list reviewed as related to this call. documented in this encounter Plan of Treatment Upcoming Encounters Date Type Department Care Team (Late st Contact Info) Description 09/12/2023 3:20 PM CDT Appointment [facility]-SCALP TREATMENT SPECIALIST [address] [place] [address] [phone] Miranda Metzger DO [address] [place] [address] [phone] 09/19/2023 10:00 AM CDT Appointment [facility] [address] [place] [address] [phone] Maria Dolores Del Real APRN, ENVELOPE STAMPING MACHINE OPERATOR [address] [place] [address] [id number] 09/19/2023 11:00 AM CDT Appointment [facility] [address] [place] [address], [address] [phone] Shaggy Smith MD [address] [place] [address] [phone] 10/13/2023 9:00 AM CDT Appointment [facility]-SCALP TREATMENT SPECIALIST [address] [place] [address] [phone] Maria Dolores Del eRal APRN, ENVELOPE STAMPING MACHINE OPERATOR [address] [place] [address] [phone] documented as of this encounter Visit Diagnoses Not on filedocumented in this encounter Care Teams Ip Network Architect Relationship Specialty [place] [address] [place] [address] PCP - General Family Practice 11/03/20 documented as of this encounter
--- OUTSIDE RECORDS SUMMARY | 2023-09-08 23:14 | XMS_ITS | Encounter Summary ---
Author Organization [employer] Address [address] [address] Care Team Providers Care Industrial Sweeper Cleaner Name Role Phone Randal Joe MD Primary Care Provider [phone] Reason for Referral * Consult/Transfer Care (Routine) - New Request Specialty Diagnoses / Procedures Referred By Contac t Referred To Contact Diagnoses Anxiety (HR[place]) [place] [address] [place] [address] [address] Referral ID Status Reason Start Date Expiration Date V isits Requested Visits Authorized [id number] New Request 06/03/2023 09/01/2024 1 1 Scheduling Instructions Your clinician has recommended an appointment with Behavioral Health. You may call [phone] to schedule your appointment. This recommended service/s [...] Answer Appointment Urgency? Non-Urgent Reason for request? anxiety Requested Services? Therapy/Counseling Pt aware and agrees to this order: Did not confirm with patient Patient has received or is currently receiving outside behavioral health services? No Reason for Visit * Reason Comments Concerns ANXIETY Encounter Details Date Type Department Care Team (Late st Contact Info) Description 06/01/2023 Nurse Triage [facility] [address] [place] [address] [place] [address] [place] [address] Concerns; ANXIETY Social History Tobacco Use Types Packs/Day Years [...] encounter Nursing Notes * Minoo Brumfield - 06/08/2023 3:50 PM CDT Patient returning call. Patient had appointment with provider and information reviewed at that time. * Fidelina Mora RN - 06/08/2023 2:06 PM CDT LM to return call to nurse line * Sofiya Vo MD - 06/08/2023 2:01 PM CDT Please let pt know about results on regards viable IUP. Pt needs NOB1 and NOB2. Thanks AA * Minoo Brumfield - 06/08/2023 1:10 PM CDT HCG completed on 4/30: Component Ref Range & Units 1 d ago 7 d ago 9 d ago HCG, Quantitative <=4 mIU/mL 14,208 High 3,049 High 1,314 High U/s completed 06/07: IMPRESSION: Single intrauterine gestation sac containing a pole with cardiac activity and a yolk sac. Estimated gestation age by crown-rump length is 6 weeks 1 day, yielding an estimated date of confinement of 01/31/2024. Routed to provider to review and advise next steps. * Nilam Arriaza RN - 06/06/2023 9:17 AM CDT Pt was seen in the ED on Tuesday. Feels safe and comfortable after being evaluated. Pt has US appt on 06/07 Reports spotting after intercourse only. Pt and spouse have taken a break from intercourse for the time being until her US appt. Pt would also like repeat Hcg and will present to lab. Pt will call back after US appt to schedule OB appts. * Radha Lund RN - 06/03/2023 5:18 PM CDT Called pt and LM For her to call the nurse line back. Number provided. Please see note below from provider * Sofiya Vo MD - 06/03/2023 5:03 PM CDT If pt feels safe then I strongly recommend following with behavioral health for appropriate management of her anxiety. Referral in place. Please make sure pt reports any suicidal thoughts or ideas of hurting others. Thanks AA * Carin Root RN - 06/02/2023 9:54 AM CDT See 05/29 note for previous and ongoing conversation. * Keely Evans RN - 06/01/2023 10:52 PM CDT Pt calling about lab results for HCG. Pt is very anxious and scared. Pt is afraid her stress is going to hurt her . Nurse told pt she will send a note to her provider. Nurse told pt she could call the nurse line back if she needed to talk. Not wanting to hurt herself, pt feels safe. Reason for Disposition MODERATE anxiety (e.g., persistent or frequent anxiety symptoms; interferes with sleep, school, or work) Protocols used: Anxiety and Panic [id number] Problem list reviewed as related to this call. documented in this encounter Plan of Treatment Upcoming Encounters Date Type Department Care Team (Late st Contact Info) Description 09/12/2023 3:20 PM CDT Appointment [facility]-EVIDENCE SPECIALIST [address] [facility], [address] [phone] [place] [address] Guevara [address] [place] [address] 09/19/2023 10:00 AM CDT Appointment [facility] [address] [phone] Maria Dolores Del Real, PHOTOGRAPHIC LITHOGRAPHER, [employer]JUNCT F[employer]Y FOR MEDICAL TERMINOLOGY [address] Guevara [address] [place] [address] 09/19/2023 11:00 AM CDT Appointment [facility] [address] [place] [address], [address] [place] [phone] Shaggy Smith MD [address] [place] [address] [place] [address] [place] [address] 10/13/2023 9:00 AM CDT Appointment [facility]-EVIDENCE SPECIALIST [address] [facility], [address] [place] [address] Maria Dolores Del Real PHOTOGRAPHIC LITHOGRAPHER, ADJUNCT FACULTY FOR MEDICAL TERMINOLOGY [address] [place], [place] [phone] Scheduled Referrals Name Type Priority Associated Diagnoses Orde r Schedule Behavioral Health Adult/Peds Referral Routine Anxiety (HRC) Ordered: 06/03/2023 documented as of this encounter Visit Diagnoses Diagnosis Anxiety (HRC)- Primary Anxiety state, unspecified documented in this encounter Care Teams Industrial Sweeper Cleaner Relationship Specialty [place] [address] [place] [address] PCP - General Family Practice 11/03/20 documented as of this encounter
--- OUTSIDE RECORDS SUMMARY | 2023-09-08 23:14 | XMS_ITS | Encounter Summary ---
Author Organization [employer] Address [address] [address] Care Team Providers Care Special Technical Operations Officer Name Role Phone Randal Joe MD Primary Care Provider [phone] Encounter Details Date Type Department Care Team (Late st Contact Info) Description 06/07/2023 5:30 PM CDT Lab Visit [facility] [address] [facility] [place] [address] History of miscarriage Social History [...] Info) Description 09/12/2023 3:20 PM CDT Appointment [facility]-ENGROSSER [address] [facility], [address] [place] [address] [place] [address] [address] [place] [address] 09/19/2023 10:00 AM CDT Appointment [facility] [address] [facility], [address] [place] [phone] Maria Dolores Del Real APRN, LINE DRIVER [address] [place], [place] [address]307 09/19/2023 11:00 AM CDT Appointment [facility] [address] [facility], [address] [place] [phone] Shaggy Smith MD [address] [place] [address] [address] [place], [place] [phone] 10/13/2023 9:00 AM CDT Appointment [facility]ENGROSSER [address] [facility], [facility] [address] [place] [phone] Maria Dolores Del Real APRN, LINE DRIVER [address] Guevara [address] [place] [phone] documented as of this encounter Procedures Procedure Name Priority Date/Time Associated Diagnosis Comments HCG, QUANTITATIVE, SERUM STAT 06/07/2023 5:00 PM CDT History of miscarriage documented in this encounter Results * (ABNORMAL) HCG, Quantitative, Serum (06/07/2023 5:00 PM CDT) HCG, Quantitative 14,208(H) <=4 mIU/mL 06/07/2023 8:53 PM CDT [facility] Blood Venipuncture / Unknown 06/07/2023 5:00 PM CDT 06/07/2023 5:00 PM CDT Narrative [facility] - 06/07/2023 8:53 PM CDT Expected ranges Negative: <5 mIU/mL Indeterminate: 5-25 mIU/mL Positive: >25 mIU/mL Suggest repeat testing of indeterminate result in 72 hours. Michaela Lopez MD LAB_1 [facility] [address] documented in this encounter Visit Diagnoses Diagnosis History of miscarriage Personal history of other genital system and obstetric disorders documented in this encounter Care Teams Special Technical Operations Officer Relationship Specialty [place] [address] [place] [address] PCP - General Family Practice 11/03/20 documented as of this encounter
--- OUTSIDE RECORDS SUMMARY | 2023-09-08 23:14 | XMS_ITS | Encounter Summary ---
Author Organization [employer] Address [address], [place] [address] Care Team Providers Care Director Of Product Development Name Role Phone Randal Joe MD Primary Care Provider [phone] Reason for Visit * Reason Comments LAB RESULTS Encounter Details Date Type Department Care Team (Late st Contact Info) Description 05/30/2023 Telephone [facility]-RESEARCH PHARMACIST [address] [facility] [address] [place] [address] [place] [address] [facility] [address] [place] [address] LAB RESULTS Social History Tobacco Use Types [...] as of this encounter Progress Notes * Michaela Lopez MD - 06/02/2023 12:28 PM CDTAddended by: MICHAELA LOPEZ on: 06/02/2023 12:28 PM Modules accepted: Orders * Carin Henriquez RN - 06/02/2023 10:55 AM CDTAddended by: CARIN HENRIQUEZ on: 06/02/2023 10:55 AM Modules accepted: Orders * Carin Henriquez RN - 05/31/2023 10:42 AM CDTAddended by: CARIN HENRIQUEZ on: 05/31/2023 10:42 AM Modules accepted: Orders documented in this encounter Nursing Notes * Michaela Lopez MD - 06/02/2023 12:28 PM CDT Order signed. Michaela Lopez MD 12:28 PM 06/02/2023 * Carin Henriquez RN - 06/02/2023 11:37 AM CDT Patient calling to ask likelihood of FHR at US appointment 06/07. Explained she would only be 5+4 so there is a risk of not seeing FHR yet. Had US at 6+2 last (12/13/22) and it was low but they thought likely d/t early gestation but unfortunately no FHR at follow up later. Patient plans on rescheduling US to closer to 7 weeks unless provider wants her to do earlier. Otherwise does want to do more hCG levels. * Carin Henriquez RN - 06/02/2023 10:52 AM CDT Patient returning call. Discussed hCG level and ok to schedule US. Also went over timing of US and if done now may only see the beginnings of the and likely won't see a heartbeat yet. Patient verbalizes understanding and has no further questions. Asking if she can also do a couple more hCG levels for reassurance, labs pended. * Carin Henriquez RN - 06/02/2023 9:47 AM CDT HCG level now above 3,000. US orders previously placed. Called to advise she can schedule US. Message left asking to call back. Please note LMP of 04/30/23 making her only 4+5 weeks, depending on how soon she schedules US may not see FHR yet. Component Latest Ref Rng 05/25/2023 05/27/2023 05/30/2023 06/01/2023 HCG, Quant. Preg. <=4 mIU/mL 214 (H) 448 (H) 1,314 (H) 3,049 (H) * Carin Henriquez RN - 05/31/2023 10:12 AM CDT HCG continues to increase. Already has lab scheduled for next hCG level. Component Latest Ref Rng 05/25/2023 05/27/2023 05/30/2023 HCG, Quant. Preg. <=4 mIU/mL 214 (H) 448 (H) 1,314 (H) Future Appointments Provider Department Center 06/01/2023 5:30 PM LAB, [facility] * Anika Boyd LPN - 05/30/2023 9:10 AM CDT Spoke to pt and notified her of providers message. Pt understands. Does state she has not had any bleeding since she called in with recent IC. Taking pelvic rest for now. No other questions or concerns at this time. * Anika Boyd LPN - 05/30/2023 9:04 AM CDT ----- Message from Sofiya Vo MD sent at 05/29/2023 6:30 PM CDT ----- Please let pt known her HCG is increasing appropriately, will continue to need serial HCG's until we can get pass threshold to be able to order US. Thanks AA documented in this encounter Plan of Treatment Upcoming Encounters Date Type Department Care Team (Late st Contact Info) Description 09/12/2023 3:20 PM CDT Appointment [facility]-RESEARCH PHARMACIST [address] [place] [address] [phone] Miranda Metzger DO [address] [place] [address] [phone] 09/19/2023 10:00 AM CDT Appointment [facility] [address] [place] [address] [phone] Maria Dolores Del Real NUTRITION HELPER, [employer] SYSTEMS ADMINISTRATOR [address] [place] [address] Dr [address] [place] [address] 09/19/2023 11:00 AM CDT Appointment [facility] [address] [place] [address], [address] [place] [address] [phone] Shaggy Smith MD [address] [place], [place] [address]JUSTIN [place], [place] [address] 10/13/2023 9:00 AM CDT Appointment [facility]-RESEARCH PHARMACIST [address] [place] [address] [phone] Gave, Maria Dolores J, NUTRITION HELPER, [employer] SYSTEMS ADMINISTRATOR [address] [place] [address] documented as of this encounter Results * (ABNORMAL) HCG, Quantitative, Serum (06/10/2023 5:28 PM CDT) HCG, Quantitative 12,892(H) <=4 mIU/mL 06/10/2023 9:36 PM CDT [facility] Blood Venipuncture / Unknown 06/10/2023 5:28 PM CDT 06/10/2023 5:28 PM CDT Narrative [facility] - 06/10/2023 9:36 PM CDT Expected ranges Negative: <5 mIU/mL Indeterminate: 5-25 mIU/mL Positive: >25 mIU/mL Suggest repeat testing of indeterminate result in 72 hours. Michaela Lopez MD LAB_1 Performing Organization Address [facility] de Phone Number [facility] [address] * (ABNORMAL) HCG, Quantitative, Serum (06/07/2023 5:00 PM CDT) HCG, Quantitative 14,208(H) <=4 mIU/mL 06/07/2023 8:53 PM CDT [facility] Blood Venipuncture / Unknown 06/07/2023 5:00 PM CDT 06/07/2023 5:00 PM CDT Narrative [facility] - 06/07/2023 8:53 PM CDT Expected ranges Negative: <5 mIU/mL Indeterminate: 5-25 mIU/mL Positive: >25 mIU/mL Suggest repeat testing of indeterminate result in 72 hours. Michaela Lopez MD LAB_1 Performing Organization Address [facility] Co de Phone Number [facility] [employer] [address] documented in this encounter Visit Diagnoses Diagnosis History of miscarriage- Primary Personal history of other genital system and obstetric disorders documented in this encounter Care Teams Director Of Product Development Relationship Specialty [place] [address] [place] [address] PCP - General Family Practice 11/03/20 documented as of this encounter
== END 2023-09-08 23:00 | disposition home or self-care (01) ==
LOC: ED 23:06
PROVIDERS: Emergency Provider Family Medicine
DX: K59.00 Constipation, unspecified (principal); Z3A.18 18 weeks gestation of pregnancy
CPT/HCPCS: 99281; 99283

== ENCOUNTER 2023-09-12 08:37 | Outpatient (CLI) | payer OTHER, SELFPAY ==
--- OUTSIDE RECORDS SUMMARY | 2023-09-13 00:34 | XMS_ITS | Clinical Summary ---
Author Organization [facility] Address [place], [place] [address] Care Team Providers Care Peanut Vendor Name Role Phone [facility] Allergies Active Allergy Reactions Criticality Noted Date Comments Diatrizoate Allergen Angioedema 09/11/2023 Active Problems Problem Noted Date Diagnosed Date Nausea/vomiting in 07/07/2023 Supervision of high risk in [facility] 07/07/2023 Nausea, vomiting, and diarrhea 05/09/2021 Prolonged Q-T interval on ECG 05/09/2021 Vitamin D deficiency 05/17/2014 Overview: Problem list name updated by automated process. Provider to review Problem list name updated by automated process. Provider to review Anxiety 07/17/2012 Morbid obesity 08/20/2009 Smoker 05/07/2009 Weight gain 12/25/2008 Panic disorder without agoraphobia 06/03/2005 Overview: LW Onset: [id number] ; Panic Disorder w/o Agoraphobia Estimated Date of Delivery Comme nts Yes 02/04/2024 Encounters Date Type Department Care Team Description 09/11/2023 6:17 AM CDT - 09/11/2023 10:18 AM CDT Emergency [facility] [address] [place] [address] Cr Jiménez PA Dahl, Nicholas Andrew, MD Constipation, unspecified constipation type (Primary Dx); Upper abdominal pain Discharge Disposition: Home Self Care 09/11/2023 Travel from Last 3 Months Social History Tobacco Use Types Packs/Day Years Used Date Smoking Tobacco: Never Assessed Estimated Date of Delivery Comme nts Yes 02/04/2024 Sex and Gender Information Value Date Recorded Sex Assigned at Not on file Gender Identity Not on file Sexual Orientation Not on file Obstetrics History Para Term AB IAB SAB Ectopic Multiple Livin g Live Births 1 Date Outcome GA Total Labor Labor/2nd/3rd Weight Sex Type Anes PTL Chanel A1 A5 Name Clin Current Last Filed Vital Signs Vital Sign Reading Time Taken Comments Blood Pressure 113/66 09/11/2023 9:47 AM CDT Pulse 96 09/11/2023 9:47 AM CDT Temperature 36.8 ??C (98.3 ??F) 09/11/2023 6:12 AM CD T Respiratory Rate 16 09/11/2023 6:12 AM CDT Oxygen Saturation 100% 09/11/2023 9:47 AM CDT Inhaled Oxygen Concentration - - Weight 81.6 kg (180 lb) 09/11/2023 6:12 AM CDT Height 165.1 cm (5' 5) 09/11/2023 6:12 AM CDT Body Mass Index 29.95 09/11/2023 6:12 AM CDT Plan of Treatment Health Maintenance Due Date Last Done Comments Tdap 1996 Depression screening for age 12+ 1997 HIV for age 15-65 2000 BMI (ht and wt on same day) for age 18+ 05/14/2003 Hepatitis C screening for ag e 18-79 05/14/2003 Tetanus booster 2005 Pap test for age 21-65 2006 COVID-19 vaccine series ( season) 2022 Influenza for age 9-49 10/09/2023 Pneumococcal series for age 6-64 Aged Out No longer eligible based on patient's age to complete this topic Procedures Procedure Name Priority Date/Time Associated Diagnosis Comments US OB LIMITED ANY TRI TA STAT 09/11/2023 9:30 AM CDT CBC WITH AUTO DIFFERENTIAL STAT 09/11/2023 6:57 AM CDT LIPASE STAT 09/11/2023 6:57 AM CDT HEPATIC FUNCTION PANEL STAT 09/11/2023 6:57 AM CDT BASIC METABOLIC PANEL STAT 09/11/2023 6:57 AM CDT CBC WITH AUTO DIFFERENTIAL STAT 09/11/2023 6:57 AM CDT from Last 3 Months Results * US OB LIMITED ANY TRI TA (09/11/2023 9:30 AM CDT) Anatomical Region Laterality Modality , 2or 3 TRIMESTER, 1ST TRIMESTER Ultrasound 09/11/2023 9:30 AM CDT Impressions 09/11/2023 9:34 AM CDT Single intrauterine gestation. Narrative 09/11/2023 9:34 AM CDT For Patients: As a result of the Cures Act, medical imaging exams and procedure reports are released immediately into your electronic medical record. You may view this report before your referring provider. If you have questions, please contact your health care provider. EXAM: US OB LIMITED ANY TRI TA LOCATION: [facility] DATE: 09/11/2023 INDICATION: viability/status d Exam->Other (enter in comment field) COMPARISON: None. TECHNIQUE: Transabdominal and endovaginal ultrasound. FINDINGS: Single living fetus, vertex ??presentation. HEART RATE: 165 ??bpm. SDP 5.8 ??cm. PLACENTA: Along the left uterine wall . No previa. CERVIX: 4.0 cm . Normal ovaries with normal blood flow CORD DOPPLER: S/D ratio: 3.28 Procedure Note Regis Hernandez MD - 09/11/2023 For Patients: As a result of the Cures Act, medical imagingexams and procedure reports are released immediately into your electronicmedical record. You may view this report before your referring provider.If you have questions, please contact your health care provider. EXAM: US OB LIMITED ANY TRI TA LOCATION: [facility] DATE: 09/11/2023 INDICATION: viability/status d Exam->Other (enter in commentfield) COMPARISON: None. TECHNIQUE: Transabdominal and endovaginal ultrasound. FINDINGS: Single living fetus, vertex presentation. HEART RATE: 165 bpm. SDP 5.8 cm. PLACENTA: Along the left uterine wall . No previa. CERVIX: 4.0 cm . Normal ovaries with normal blood flow CORD DOPPLER: S/D ratio: 3.28 IMPRESSION: Single intrauterine gestation. Marvin Riggs MD US * (ABNORMAL) CBC WITH AUTO DIFFERENTIAL (09/11/2023 6:57 AM CDT) WHITE BLOOD COUNT 8.6 4.5 - 11.0 thou/cu mm 09/11/2023 7:07 AM [facility] RED BLOOD COUNT 3.77(L) 4.00 - 5.20 mil/cu mm 09/11/2023 7:07 AM [facility] HEMOGLOBIN 11.3(L) 12.0 - 16.0 g/dL 09/11/2023 7:07 AM [facility] HEMATOCRIT 32.6(L) 33.0 - 51.0 % 09/11/2023 7:07 AM [facility] MCV 87 80 - 100 fL 09/11/2023 7:07 AM [facility] MCH 30.0 26.0 - 34.0 pg 09/11/2023 7:07 AM [facility] MCHC 34.7 32.0 - 36.0 g/dL 09/11/2023 7:07 AM [facility] RDW 12.5 11.5 - 15.5 % 09/11/2023 7:07 AM [facility] PLATELET COUNT 193 140 - 440 thou/cu mm 09/11/2023 7:07 AM [facility] MPV 10.4 6.5 - 11.0 fL 09/11/2023 7:07 AM [facility] NRBC 0.0 % 09/11/2023 7:07 AM CDT [facility] ABS NRBC 0.0 thou /cu mm 09/11/2023 7:07 AM CDT [facility] % NEUT 74.0 % 09/11/2023 7:07 AM CDT [facility] % LYMPH 16.2 % 09/11/2023 7:07 AM CDT [facility] % MONO 8.6 % 09/11/2023 7:07 AM CDT [facility] % EOS 0.6 % 09/11/2023 7:07 AM CDT [facility] % BASO 0.2 % 09/11/2023 7:07 AM CDT [facility] % IMMATURE GRAN (METAS,MYELOS,AK OS) 0.4 % 09/11/2023 7:07 AM CDT [facility] ABSOLUTE NEUTROPHILS 6.3 1.7 - 7.0 thou/cu mm 09/11/2023 7:07 AM CDT [facility] ABSOLUTE LYMPHOCYTES 1.4 0.9 - 2.9 thou/cu mm 09/11/2023 7:07 AM CDT [facility] ABSOLUTE MONOCYTES 0.7 <0.9 thou/cu mm 09/11/2023 7:07 AM CDT [facility] ABSOLUTE EOSINOPHILS 0.1 <0.5 thou/cu mm 09/11/2023 7:07 AM CDT [facility] ABSOLUTE BASOPHILS 0.0 <0.3 thou/cu mm 09/11/2023 7:07 AM T [facility] ABSOLUTE IMMATURE GRANULOCYTES(MET ,MYELOS,PROS) 0.0 <0.3 thou/cu mm 09/11/2023 7:07 AM T [facility] Blood BLOOD SPECIMEN / Unknown Non-Lab Venipuncture / Unknown 09/11/2023 6:57 AM CDT 09/11/2023 7:04 AM CDT Cr [facility] HEMATOLOGY [facility] SENDOUT [place]IP [phone] [place] [address] * LIPASE (09/11/2023 6:57 AM CDT) LIPASE 31.7 13.0 - 60.0 IU/L 09/11/2023 7:24 AM CDT [facility] Blood BLOOD SPECIMEN / Unknown Non-Lab Venipuncture / Unknown 09/11/2023 6:57 AM CDT 09/11/2023 7:04 AM CDT Cr MART[facility]Z CHEMISTRY Performing Organization Address [facility] Co de Phone Number [facility] SENDOUT INTERNAL ZIP [address] [place] [phone] * (ABNORMAL) HEPATIC FUNCTION PANEL (09/11/2023 6:57 AM CDT) ALBUMIN 3.9(L) 4.0 - 4.9 g/dL 09/11/2023 7:24 AM CDT [facility] PROTEIN,TOTAL 6.4 6.0 - 8.0 g/dL 09/11/2023 7:24 AM CDT [facility] BILIRUBIN,TOTAL 1.0 0.0 - 1.2 mg/dL 09/11/2023 7:24 AM CDT [facility] BILIRUBIN,DIRECT 0.4(H) 0.0 - 0.3 mg/dL 09/11/2023 7:24 AM CDT [facility] BILIRUBIN,INDIRE CT 0.6 0.2 - 0.8 mg/dL 09/11/2023 7:24 AM CDT [facility] ALK PHOSPHATASE 55 35 - 104 IU/L 09/11/2023 7:24 AM CDT [facility] ALT (SGPT) 41(H) 10 - 35 IU/L 09/11/2023 7:24 AM CDT [facility] AST (SGOT) 31 10 - 35 IU/L 09/11/2023 7:24 AM CDT [facility] Blood BLOOD SPECIMEN / Unknown Non-Lab Venipuncture / Unknown 09/11/2023 6:57 AM CDT 09/11/2023 7:04 AM CDT Cr MARTINEZ CHEMISTRY Performing Organization Address [facility]/ZIP Co de Phone Number [facility] SENDOUT [place] ZIP [phone] [place] [address] * (ABNORMAL) BASIC METABOLIC PANEL (09/11/2023 6:57 AM CDT) SODIUM 135(L) 136 - 145 mmol/L 09/11/2023 7:24 AM [facility] POTASSIUM 3.5 3.5 - 5.1 mmol/L 09/11/2023 7:24 AM [facility] CHLORIDE 102 98 - 107 mmol/L 09/11/2023 7:24 AM [facility] CO2,TOTAL 20(L) 22 - 29 mmol/L 09/11/2023 7:24 AM [facility] ANION GAP 13 5 - 18 09/11/2023 7:24 AM [facility] GLUCOSE 95 70 - 99 mg/dL 09/11/2023 7:24 AM [facility] CALCIUM 9.1 8.6 - 10.0 mg/dL 09/11/2023 7:24 AM [facility] BUN 3(L) 6 - 20 mg/dL 09/11/2023 7:24 AM [facility] CREATININE 0.52 0.50 - 0.90 mg/dL 09/11/2023 7:24 AM [facility] BUN/CREAT RATIO 6(L) 10 - 20 7:24 AM [facility] eGFR >90 >90 mL/min/1.7 3m2 09/11/2023 7:24 AM [facility] Comment:As of 2021, eG FR is calculated by the CKD-EPI creatinine equation without race adjustment. ??eGFR can be influenced by muscle mass, exercise, and diet. ??The reported eGFR is an estimation only and is only applicable if the renal function is stable. Blood BLOOD SPECIMEN / Unknown Non-Lab Venipuncture / Unknown 09/11/2023 6:57 AM CDT 09/11/2023 7:04 AM T Cr [facility]ART[facility]Z CHEMISTRY [facility] SENDOUT [place] ZIP [phone] [place] [address] from Last 3 Months Care Teams Peanut Vendor Relationship Specialty Start Date End Date [facility] - [address] [place] [id number] PCP - General 09/11/23
--- OUTSIDE RECORDS SUMMARY | 2023-09-13 00:35 | XMS_ITS | Encounter Summary ---
Author Organization [facility] Address [address] [facility] 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 [address] [place] [address] 07/20/22 documented as of this encounter
--- OUTSIDE RECORDS SUMMARY | 2023-09-13 00:35 | XMS_ITS | Encounter Summary ---
Author Organization [facility] Address [address] [place] [address] Care Team Providers Care Graphic User Interface Designer Name Role Phone [facility], [facility] Primary Care Pro vider Mary Kate Herrera PA-C Unavailable Randal Joe MD Unavailable Reason for Visit * Reason Comments Abdominal Pain Encounter Details Date Type Department Care Team (Late st Contact Info) Description 09/09/2023 3:22 PM CDT - 09/09/2023 6:[address] [facility] Emergency Dept [address] [place] [address] Romel Holly MD [facility] [address] [place] [address] Abdominal pain, epigastric; Gallbladder sludge Discharge Disposition: Home or Self Care Social [...] Sign Reading Time Taken Comments Blood Pressure 120/62 09/09/2023 4:42 PM CDT Pulse 72 09/09/2023 4:42 PM CDT Temperature 36.6 ??C (97.9 ??F) 09/09/2023 1:55 PM CD T Respiratory Rate 16 09/09/2023 1:55 PM CDT Oxygen Saturation 100% 09/09/2023 4:42 PM CDT Inhaled Oxygen Concentration - - Weight - - Height - - Body Mass Index - - documented in this encounter Discharge Instructions * Attachments The following attachments cannot be sent through Care Everywhere. * Gallstones (Bahraini) documented in this encounter Medications at Time of Discharge Medication Sig Dispensed Refills Start Date End Date glycerin (LAXATIVE) 1.[address] 1 [...] needed for nausea VITAMIN D3 50 MCG (2000 UT) tablet Take 1 tablet by mouth daily famotidine (PEPCID) 20 MG tablet Take 1 tablet (20 mg) by mouth 2 times daily for 10 days 20 tablet 09/01/2023 09/11/2023 documented as of this encounter ED Notes * Armida Jhaveri RN - 09/09/2023 4:32 PM CDT Bed: ED38 Expected date: Expected time: Means of arrival: Comments: FT3 * Jaki Wright RN - 09/09/2023 1:48 PM CDT Pt states that she has had abdominal pain for a few days pt states that it constant and pt unable to eat unable to drink unable to lay down. PT was seen in OB first where they assessed baby and then started a IV and fluids. Triage Assessment (Adult) Row Name 09/09/23 1348 Triage Assessment Airway WDL WDL Respiratory WDL Respiratory WDL WDL Skin Circulation/Temperature WDL Skin Circulation/Temperature WDL WDL Cardiac WDL Cardiac WDL WDL Peripheral/Neurovascular WDL Peripheral Neurovascular WDL WDL Cognitive/Neuro/Behavioral WDL Cognitive/Neuro/Behavioral WDL WDL * Romel Holly MD - 09/09/2023 1:45 PM CDT Emergency Department Note History of Present Illness Chief Complaint Abdominal Pain HPI Alisia Velasquez is a 38 year old female approximately 19 weeks here for evaluation of abdominal pain. Patient reports 2 days of upper abdominal pain. The pain has significantly worsened today. Describes the pain as stabbing. The pain does not radiate. Eating exacerbates the pain and causes her to vomit. Reports a decent amount of blood in her vomit. She also reports occasional runny stools. Stools are brown or green. Reports severe dehydration. Adds that she ate at [employer] before the pain came on and says she felt like there was something hard in the taco that she swallowed. Patient had lower abdominal pain about a week ago. Her pain then resolved and she was pain free for a few days. The pain today is located in a different area in her upper abdomen. She has also had ongo ing constipation for the past month. Patient also had some rectal bleeding in her first trimester, which has resolved. Also reports losing 8 pounds recently. Patient has a history of acid reflux and states her pain today feels very different. No melena, hematochezia, hemoptysis. Patient has historyof C.diff and neurovirus. Independent Historian None Review of External Notes OB visit from today- almost 19 weeks , reports constipation and burning after putting in suppository, upper abdominal pain 09/01 - ER visit seen for constipation and abdominal pain 08/29 - Reviewed MRI abdomen results and ultrasound 08/27 - ER visit, seen for rectal bleed Past Medical History Medical History and Problem List Anxiety Arthritis Depression Medications Pepcid Atarax Phenergan Surgical History Appendectomy D&C Physical Exam Patient Vitals for the past 24 hrs: BP Temp Temp src Pulse Resp SpO2 09/09/23 1642 120/62 -- -- 72 -- 100 % 09/09/23 1355 111/61 97.9 ??F (36.6 ??C) Temporal 85 16 100 % Physical Exam General: No respiratory distress Cardiovascular: Good cap refill. Respiratory: Breathing non labored. GI: Epigastric pain. Musculoskeletal: No tenderness. No bony deformity. Skin: No rashes or petechiae Neurologic: non focal Psychiatric: Appropriate Diagnostics Lab Results Labs Ordered and Resulted from Time of ED Arrival to Time of ED Departure COMPREHENSIVE METABOLIC PANEL - Abnormal Result Value Sodium 135 Potassium 4.0 Carbon Dioxide (CO2) 20 (*) Anion Gap 13 Urea Nitrogen 4.1 (*) Creatinine 0.54 GFR Estimate >90 Calcium 9.1 Chloride 102 Glucose 85 Alkaline Phosphatase 52 AST 17 ALT 27 Protein Total 6.6 Albumin 3.7 Bilirubin Total 0.9 CBC WITH PLATELETS AND DIFFERENTIAL - Abnormal WBC Count 8.6 RBC Count 3.87 Hemoglobin 11.8 Hematocrit 34.0 (*) MCV 88 MCH 30.5 MCHC 34.7 RDW 12.6 Platelet Count 213 % Neutrophils 79 % Lymphocytes 11 % Monocytes 9 % Eosinophils 1 % Basophils 0 % Immature Granulocytes 1 NRBCs per 100 WBC 0 Absolute Neutrophils 6.8 Absolute Lymphocytes 1.0 Absolute Monocytes 0.8 Absolute Eosinophils 0.0 Absolute Basophils 0.0 Absolute Immature Granulocytes 0.0 Absolute NRBCs 0.0 ROUTINE UA WITH MICROSCOPIC - Abnormal Color Urine Yellow Appearance Urine Clear Glucose Urine Negative Bilirubin Urine Negative Ketones Urine 60 (*) Specific [place] Urine 1.009 Blood Urine Negative pH Urine 6.5 Protein Albumin Urine Negative Urobilinogen Urine 2.0 Nitrite Urine Negative Leukocyte Esterase Urine Negative Bacteria Urine Few (*) Mucus Urine Present (*) RBC Urine 1 WBC Urine 0 Squamous Epithelials Urine 1 Hyaline Casts Urine 1 LIPASE - Normal Lipase 36 BILIRUBIN DIRECT - Normal Bilirubin Direct 0.24 Imaging US Abdomen Limited Final Result IMPRESSION: 1. Mobile sludge in the gallbladder lumen. No shadowing gallstones, acute cholecystitis or biliary ductal dilatation. Independent Interpretation I reviewed Abdomen XR- I see sludge in the gallbladder ED Course Medications Administered Medications sodium chloride 0.9% BOLUS 1,000 mL (0 mLs Intravenous Stopped 09/09/231810) Procedures Procedures Discussion of Management None ED Course ED Course as of 09/09/23 2331 TueSep 09, 2023 1616 I obtained history and examined the patient as noted above. 1753 I rechecked and updated the patient. I spoke with patient regarding results. Additional Documentation None Medical Decision Making / Diagnosis [facility] Diagnoses: None MIPS None MDM Alisia Velasquez is a 38 year old female has had several recent ER visits for abdominal pain but reports that this pain just started a day or 2 ago in the epigastric region was not in the diffuse area when she had the MRI. I felt this could be a new process. The patient is related related complications were considered however she is already been upstairs to OB. Labs reviewed I did consider pancreatitis intrathoracic causes AAA however she has had a recent MRI of the abdomen. I was most suspicious about biliary colic and she in fact does have sludge in her gallbladder the patient does not show signs of pancreatitis or common bile duct stone her pain is under control we discussed the diet that she should undergo the need for follow-up and she was discharged home in good condition. It is concerned the patient has not been putting on weight well she was hydrated hereI stressed the need to continue to eat and drink fluids. Disposition The patient was discharged. Diagnosis ICD-10-CM 1. Abdominal pain, epigastric R10.13 2. Gallbladder sludge K82.8 Discharge Medications Discharge Medication List as of 09/09/2023 6:12 PM Scribe Disclosure: I, Jeannine King, am serving as a scribe at 5:53 PM on 09/09/2023 to document services personally performed by Romel Holly MD based on my observations and the provider's statements to me. Romel Holly MD 09/09/232 documented in this encounter Plan of Treatment Not on file documented as of this encounter Procedures Procedure Name Priority Date/Time Associated Diagnosis Comments ROUTINE UA WITH MICROSCOPIC STAT 09/09/2023 5:38 PM CDT US ABDOMEN LIMITED STAT 09/09/2023 5: 27 PM CDT CBC WITH PLATELETS AND DIFFERENTIAL STAT 09/09/2023 2:49 PM CDT CBC WITH PLATELETS & DIFFERENTIAL STAT 09/09/2023 2:49 PM CDT LIPASE STAT 09/09/2023 2:49 PM CDT COMPREHENSIVE METABOLIC PANEL STAT 09/09/2023 2:49 PM CDT BILIRUBIN DIRECT STAT 09/09/2023 2:49 PM CDT documented in this encounter Results * (ABNORMAL) UA with Microscopic (09/09/2023 5:38 PM CDT) Color Urine Yellow Colorless, Straw, Light Yellow, Yellow 09/09/2023 6:02 PM CDT LABORATORY Appearance Urine Clear Clear 09/09/19 24 6:02 PM CDT LABORATORY Glucose Urine Negative Negative mg/dL 09/09/2023 6:02 PM CDT [facility] Bilirubin Urine Negative Negative 6:02 PM CDT LABORATORY Ketones Urine 60(A) Negative mg/dL 09/09/2023 6:02 PM CDT LABORATORY Specific [place] Urine 1.009 1.003 - 1.035 09/09/2023 6:02 PM CDT [facility] Blood Urine Negative Negative 09/09/2023 6:02 PM CDT LABORATORY pH Urine 6.5 5.0 - 7.0 09/09/2023 6:02 PM CDT [facility] Protein Albumin Urine Negative Negative mg/dL 09/09/2023 6:02 PM CDT [facility] Urobilinogen Urine 2.0 Normal, 2.0 mg/dL 09/09/2023 6:02 PM CDT LABORATORY Nitrite Urine Negative Negative 09/09/2023 6:02 PM CDT [facility] Leukocyte Esterase Urine Negative Negative 09/09/2023 6:02 PM CDT [facility] Bacteria Urine Few(A) None Seen /HPF 09/09/2023 6:02 PM CDT LABORATORY Mucus Urine Present(A) None Seen /LPF 09/09/2023 6:02 PM CDT [facility] RBC Urine 1 <=2 /HPF 09/09/2023 6:02 PM CDT [facility] WBC Urine 0 <=5 /HPF 09/09/2023 6:02 PM CDT [facility] Squamous Epithelials Urine 1 <=1 /HPF 09/09/2023 6:02 PM CDT [facility] Hyaline Casts Urine 1 <=2 /LPF 09/09/2023 6:02 PM CDT [facility] Urine MID-STREAM URINE SPECIMEN / Unknown Non-blood Collection / Unknown 09/09/2023 5:38 PM CDT 09/09/2023 5:45 PM CDT Romel Holly MD LAB - URINE ORDE KIET [facility] Acute Care Lab [address] Lab (1st floor, no room number) [place] [address] * US Abdomen Limited (09/09/2023 5:27 PM CDT) Anatomical Region Laterality Modality Abdomen/Pelvis Ultrasound 09/09/2023 5:27 PM CDT Impressions 09/09/2023 5:34 PM CDT IMPRESSION: 1. ??Mobile sludge in the gallbladder lumen. No shadowing gallstones, acute cholecystitis or biliary ductal dilatation. Narrative 09/09/2023 5:34 PM CDT EXAM: US ABDOMEN LIMITED LOCATION: [facility] DATE: 09/09/2023 INDICATION: epigastric abd pain COMPARISON: None. TECHNIQUE: Limited abdominal ultrasound. FINDINGS: GALLBLADDER: Mobile sludge in the gallbladder lumen. No shadowing gallstones. No gallbladder wall thickening or pericholecystic fluid. Sonographic George sign is negative. BILE DUCTS: No biliary dilatation. The common duct measures 3 mm. LIVER: Normal parenchyma with smooth contour. No focal mass. RIGHT KIDNEY: No hydronephrosis. PANCREAS: The visualized portions are normal. Procedure Note Risa Ferrera MD - 09/09/2023 EXAM: US ABDOMEN LIMITED LOCATION: [facility] DATE: 09/09/2023 INDICATION: epigastric abd pain COMPARISON: None. TECHNIQUE: Limited abdominal ultrasound. FINDINGS: GALLBLADDER: Mobile sludge in the gallbladder lumen. No shadowinggallstones. No gallbladder wall thickening or pericholecystic fluid.Sonographic George sign is negative. BILE DUCTS: No biliary dilatation. The common duct measures 3 mm. LIVER: Normal parenchyma with smooth contour. No focal mass. RIGHT KIDNEY: No hydronephrosis. PANCREAS: The visualized portions are normal. IMPRESSION: 1. Mobile sludge in the gallbladder lumen. No shadowing gallstones, acutecholecystitis or biliary ductal dilatation. Romel Holly MD [facility] US ORDERABLE S * (ABNORMAL) CBC with platelets and differential (09/09/2023 2:49 PM CDT) WBC Count 8.6 4.0 - 11.0 10e3/uL 09/09/2023 3:07 PM CDT [facility] RBC Count 3.87 3.80 - 5.20 10e6/uL 09/09/2023 3:07 PM CDT [facility] Hemoglobin 11.8 11.7 - 15.7 g/dL 09/09/2023 3:07 PM CDT [facility] Hematocrit 34.0(L) 35.0 - 47.0 % 09/09/2023 3:07 PM CDT [facility] MCV 88 78 - 100 fL 09/09/2023 3:07 PM CDT [facility] MCH 30.5 26.5 - 33.0 pg 09/09/2023 3:07 PM CDT [facility] MCHC 34.7 31.5 - 36.5 g/dL 09/09/2023 3:07 PM CDT [facility] RDW 12.6 10.0 - 15.0 % 09/09/2023 3:07 PM CDT [facility] Platelet Count 213 150 - 450 10e3/uL 09/09/2023 3:07 PM CDT [facility] % Neutrophils 79 % 09/09/2023 3:07 PM CDT [facility] % Lymphocytes 11 % 09/09/2023 3:07 PM CDT [facility] % Monocytes 9 % 09/09/2023 3:07 PM CDT [facility] % Eosinophils 1 % 09/09/2023 3:07 PM CDT [facility] % Basophils 0 % 09/09/2023 3:07 PM CDT [facility] % Immature Granulocytes 1 % 09/09/2023 3:07 PM CDT [facility] NRBCs per 100 WBC 0 <1 /100 024 3:07 PM CDT [facility] Absolute Neutrophils 6.8 1.6 - 8.3 10e3/uL 09/09/2023 3:07 PM CDT [facility] Absolute Lymphocytes 1.0 0.8 - 5.3 10e3/uL 09/09/2023 3:07 PM CDT [facility] Absolute Monocytes 0.8 0.0 - 1.3 10e3/uL 09/09/2023 3:07 PM CDT [facility] Absolute Eosinophils 0.0 0.0 - 0.7 10e3/uL 09/09/2023 3:07 PM CDT [facility] Absolute Basophils 0.0 0.0 - 0.2 10e3/uL 09/09/2023 3:07 PM CDT [facility] Absolute Immature Granulocytes 0.0 <=0.4 10e3/uL 09/09/2023 3:07 PM CDT [facility] Absolute NRBCs 0.0 10e3/uL 09/09/2023 3:07 PM CDT [facility] Blood STRUCTURE OF RIGHT HAND / Unknown Venipuncture / Unknown 09/09/2023 2:49 PM CDT 09/09/2023 3:02 PM CDT Romel Holly MD LAB - BLOOD [facility] LABORATORY [facility] Acute Care Lab [address] [facility] Lab (1st floor, no room number) [place] [address] * Bilirubin direct (09/09/2023 2:49 PM CDT) Bilirubin Direct 0.24 0.00 - 0.30 mg/dL 09/09/2023 3:34 PM CDT [facility] Blood STRUCTURE OF RIGHT HAND / Unknown Venipuncture / Unknown 09/09/2023 2:49 PM CDT 09/09/2023 3:02 PM CDT Romel Holly MD LAB - BLOOD ORDAntony SANTA LABORATORY [facility] Acute Care Lab [address] Lab (1st floor, no room number) [place] [address] * Lipase (09/09/2023 2:49 PM CDT) Lipase 36 13 - 60 U/L 09/09/2023 3:34 PM CDT [facility] Blood STRUCTURE OF RIGHT HAND / Unknown Venipuncture / Unknown 09/09/2023 2:49 PM CDT 09/09/2023 3:02 PM CDT Romel Holly MD LAB - BLOOD [facility] Performing Organization Address [facility]/ZIP Co de Phone Number LABORATORY [facility] Acute Care Lab [address] Lab (1st floor, no room number) [place] [phone] * (ABNORMAL) Comprehensive metabolic panel (09/09/2023 2:49 PM CDT) Sodium 135 135 - 145 mmol/L 09/09/2023 3:34 PM CDT [facility] Potassium 4.0 3.4 - 5.3 mmol/L 09/09/2023 3:34 PM CDT [facility] Carbon Dioxide (CO2) 20(L) 22 - 29 mmol/L 09/09/2023 3:34 PM CDT [facility] Anion Gap 13 7 - 15 mmol/L 09/09/2023 3:34 PM CDT [facility] Urea Nitrogen 4.1(L) 6.0 - 20.0 mg/dL 09/09/2023 3:34 PM CDT [facility] Creatinine 0.54 0.51 - 0.95 mg/dL 09/09/2023 3:34 PM CDT [facility] GFR Estimate >90 >60 mL/min/1.7 3m2 09/09/2023 3:34 PM CDT [facility] Comment:eGFR calculated usin g 2020 CKD-EPI equation. Calcium 9.1 8.8 - 10.4 mg/dL 09/09/2023 3:34 PM CDT [facility] Comment:Reference intervals for this test were updated on 08/23/2023 to reflect our healthy population more accurately. There may be differences in the flagging of prior results with similar values performed with this method. Those prior results can be interpreted in the context of the updated reference intervals. Chloride 102 98 - 107 mmol/L 09/09/2023 3:34 PM CDT [facility] Glucose 85 70 - 99 mg/dL 09/09/2023 3:34 PM CDT [facility] Alkaline Phosphatase 52 40 - 150 U/L 09/09/2023 3:34 PM CDT [facility] AST 17 0 - 45 U/L 09/09/2023 3:34 PM CDT [facility] ALT 27 0 - 50 U/L 09/09/2023 3:34 PM CDT [facility] Protein Total 6.6 6.4 - 8.3 g/dL 09/09/2023 3:34 PM CDT [facility] Albumin 3.7 3.5 - 5.2 g/dL 09/09/2023 3:34 PM CDT [facility] Bilirubin Total 0.9 <=1.2 mg/dL 09/09/2023 3:34 PM CDT [facility] Blood STRUCTURE OF RIGHT HAND / Unknown Venipuncture / Unknown 09/09/2023 2:49 PM CDT 09/09/2023 3:02 PM CDT Romel oHlly MD LAB - BLOOD ORDE [facility] Organization Address City/State/ZIP Co de Phone Number LABORATORY [facility] Acute Care Lab [address] [facility] Lab (1st floor, no room number) [place] [address], [facility] documented in this encounter Visit Diagnoses Diagnosis Abdominal pain, epigastric Gallbladder sludge Calculus of gallbladder without mention of cholecystitis or obstruction documented in this encounter Administered Medications Inactive Administered Medications - up to 3 most recent administrations Medication Order MAR Action Action Date Dose Rate Site dextrose 5% and 0.9% NaCl infusion at 125 mL/hr, Intravenous, CONTINUOUS, Starting on Tue09/09/23 at 1635, Until Tue09/09/23 at 2020 sodium chloride 0.9% BOLUS 1,000 mL Intravenous, 1,000 mL, ONCE, at 1,000 mL/hr, Administer over 1 Hours, On Tue09/09/23 at 1635, For 1 dose $New Bag 09/09/2023 4:40 PM CDT 1,000 mLs 1000 mL/hr documented in this encounter Active and Recently Administered Medications Times are shown in CDT. Scheduled Medication Order 09/07/2023 09/08/2023 09/09/2023 sodium chloride 0.9% BOLUS 1,000 mL (COMPLETED) Intravenous, 1,000 mL, ONCE, at 1,000 mL/hr, Administer over 1 Hours, On Tue09/09/23 at 1635, For 1 dose 1640 ($New Bag - Pro vider: Ced Kapoor, RN)[id number] (Stopped - Provider: Jasmin Acuna RN) Continuous Medication Order 09/07/2023 09/08/2023 09/09/2023 dextrose 5% and 0.9% NaCl infusion at 125 mL/hr, Intravenous, CONTINUOUS, Starting on Tue09/09/23 at 1635, Until Tue09/09/23 at 2020 1635 (Canceled Entry - Provider: Orders Generic Provider - Comment: Automatically canceled at discontinue of medication order) documented in this encounter Additional Health Concerns Assessment Noted Time PHQ-9 Depression Total Score: 6 02/07/20 21 8:10 AM 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
--- OUTSIDE RECORDS SUMMARY | 2023-09-13 00:35 | XMS_ITS | Referral Summary ---
Author Organization [place] Address [address] [facility] [place] [address] Care Team Providers Care Bureau Director Name Role Phone Clinic, [place] [facility] Pro vider Mary Kate Herrera PA-C Unavailable Randal Joe MD Unavailable [phone] Encounters Date Type Department Care Team Description 09/12/2023 Travel 09/12/2023 9:44 AM CDT - 09/12/2023 3:41 PM CDT Emergency [facility] [address] [place] [address] Kassy Rahman MD Right sided abdominal pain; Upper abdominal pain Discharge Disposition: Home or Self Care 09/09/2023 3:22 PM CDT - 09/09/2023 6:21 PM CDT Emergency [facility] Emergency [facility] [address] [place] [address] Romel Holly MD Abdominal pain, epigastric; Gallbladder sludge Discharge Disposition: Home or Self Care 09/09/2023 12:57 PM CDT - 09/09/2023 1:40 PM CDT Hospital Encounter [facility] [address] [place] [address] Brianda Pool MD Chan, Meredith, MD Discharge Disposition: Home or Self Care 09/01/2023 10:08 PM CDT - 09/01/2023 11:48 PM CDT Emergency [facility] [address] [place] [address] Tricia Gregg DO Constipation, unspecified constipation type; Abdominal pain, unspecified abdominal location Discharge Disposition: Home or Self Care 09/01/2023 Travel 09/01/2023 8:42 PM CDT - 09/01/2023 9:37 PM CDT Hospital Encounter [facility] [address] [place] [address] Annika Kirkland MD Discharge Disposition: Home or Self Care 08/30/2023 Travel 08/30/2023 4:10 PM CDT - 08/30/2023 7:45 PM CDT Emergency [facility] [address] [place] [address] Phyllis Walden, PA-C Abdominal pain during in second trimester; Hemorrhagic cyst of left ovary Discharge Disposition: Home or Self Care 08/28/2023 Travel 08/28/2023 4:36 AM CDT - 08/28/2023 6:35 AM CDT Emergency [facility] [address] [place] [address] Tricia Gregg, Jessi Lou MD Abdominal pain during , antepartum Discharge Disposition: Home or Self Care 08/22/2023 Travel 08/22/2023 11:10 AM CDT - 08/22/2023 1:57 PM CDT Emergency [facility] [address] [place] [address] Mai Headley PAJohnC Constipation during in second trimester; UTI in , second trimester Discharge Disposition: Home or Self Care 07/18/2023 Travel 07/18/2023 5:21 AM CDT - 07/18/2023 9:08 AM CDT Emergency [facility] [address] [place] [address] Kendall Omalley MD Nausea and vomiting during Discharge Disposition: Home or Self Care 07/16/2023 11:43 PM CDT - 07/17/2023 1:40 AM CDT Emergency [facility] [address] [place] [address] Louie Allen MD Constipation, unspecified constipation type Discharge Disposition: Home or Self Care 07/08/2023 Travel 07/08/2023 8:01 PM CDT - 07/08/2023 10:27 PM CDT Emergency [facility] [address] [place] [address] Shekhar Rashid MD Nausea; Anxiety; First trimester Discharge Disposition: Home or Self Care 07/05/2023 Travel 07/05/2023 2:36 AM CDT - 07/05/2023 5:51 AM CDT Emergency [facility] [address] [place] [address] Miranda Estrada MD Vaginal bleeding affecting early ; Subchorionic hematoma in first trimester, single or unspecified fetus Discharge Disposition: Home or Self Care 06/26/2023 Travel 06/26/2023 6:36 PM CDT - 06/26/2023 8:49 PM CDT Emergency [facility] [address] [place] [address] Ivan Grace PA-C Subchorionic hemorrhage of placenta in first trimester Discharge Disposition: Home or Self Care from Last 3 Months Allergies Active Allergy Reactions Criticality Noted Date Comments Amoxicillin Shortness Of Breath High 06/20/2015 Iodinated Contrast Media Anaphylaxis High 01/26/2021 Per patient, stops breathing. Medications Medication Sig Dispensed Refills Start Date [...] 6 hours as needed for nausea Active glycerin (LAXATIVE) 1.[address] 1 suppository rectally daily as needed (constipation) 12 suppository 4 Active dicyclomine (BENTYL) 20 MG tablet Take 1 tablet (20 mg) by mouth 2 times daily for 3 days 6 tablet 4 09/15/19 24 Active omeprazole (PRILOSEC) [address] capsule Take 1 capsule (20 mg) by mouth daily for 7 days 7 capsule 4 09/19/19 24 Active famotidine (PEPCID) 10 MG tablet Take [...] 5 days 20 tablet 4 09/04/19 24 famotidine (PEPCID) 20 MG tablet Take 1 tablet (20 mg) by mouth 2 times daily for 10 days 20 tablet 4 09/11/19 24 magnesium citrate 1.745 GM/30ML solution Take [...] Noted Date Diagnosed Date Resolved Date Health Halfway 09/22/2010 07/25/2023 Overview: x DX V65.8 REPLACED WITH 10769 HEALTH JAIL (05/15/2012) 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 7 Supervision of [...] Sign Reading Time Taken Comments Blood Pressure 122/63 09/12/2023 3:34 PM CDT Pulse 66 09/12/2023 3:34 PM CDT Temperature 36.7 ??C (98 ??F) 09/12/2023 9:35 AM CDT Respiratory Rate 20 09/12/2023 9:35 AM CDT Oxygen Saturation 99% 09/12/2023 3:34 PM CDT Inhaled Oxygen Concentration - - Weight 81.6 kg (180 lb) 09/12/2023 9:35 AM CDT Height 165.1 cm (5' 5) 09/12/2023 9:35 AM CDT Body Mass Index 29.95 09/12/2023 9:35 AM CDT Plan of Treatment Not on file Procedures Procedure Name Priority Date/Time Associated Diagnosis Comments MR ABDOMEN W/O CONTRAST STAT 09/12/2023 2:51 PM CDT CBC WITH PLATELETS & DIFFERENTIAL STAT 09/12/2023 12:03 PM CDT CBC WITH PLATELETS AND DIFFERENTIAL STAT 09/12/2023 12:03 PM CDT LIPASE STAT 09/12/2023 12:03 PM CDT ROUTINE UA WITH MICROSCOPIC REFLEX TO CULTURE STAT 09/12/2023 12:03 PM CDT COMPREHENSIVE METABOLIC PANEL STAT 09/12/2023 12:03 PM CDT ROUTINE UA WITH MICROSCOPIC STAT 09/09/2023 5:38 PM CDT US ABDOMEN LIMITED STAT 09/09/2023 5: 27 PM CDT CBC WITH PLATELETS & DIFFERENTIAL STAT 09/09/2023 2:49 PM CDT CBC WITH PLATELETS AND DIFFERENTIAL STAT 09/09/2023 2:49 PM CDT BILIRUBIN DIRECT STAT 09/09/2023 2:49 PM CDT LIPASE STAT 09/09/2023 2:49 PM CDT COMPREHENSIVE METABOLIC PANEL STAT 09/09/2023 2:49 PM CDT ROUTINE UA WITH MICROSCOPIC STAT 09/01/2023 11:05 [...] TO CULTURE STAT 06/26/2023 6:16 PM CDT LIPID REFLEX TO DIRECT LDL PANEL Routine 10/17/2018 1:31 PM CDT Routine general medical examination at a [facility] care facility PAP IMAGED THIN LAYER SCREEN Routine 02/10/2017 8:03 AM NETWORK CONSULTANT Screening for malignant neoplasm of cervix HPV HIGH RISK TYPES DNA CERVICAL Routine 02/10/2017 7:52 AM NETWORK CONSULTANT Screening for malignant neoplasm of cervix HEPATITIS C ANTIBODY Routine 09/23/2011 1:54 PM CDT Exposure to communicable disease HIV 1 AND 2 ANTIBODY ([facility]) Routine 12/10/2010 11:34 AM CDT Employee exposure to blood Exposure to hepatitis C from Last 3 Months or Most Recently Relevant to Health Maintenance Results * MR Abdomen w/o Contrast (09/12/2023 2:51 PM CDT) Only the most recent of2 resultswithin the time period is included. Anatomical Region Laterality Modality Abdomen/Pelvis, SUBRAD MR BODY, UMP MR BODY, RAD MR Magnetic Resonance Impressions 09/12/2023 3:03 PM CDT IMPRESSION: 1. ??No definite visualized explanation for patient's symptoms. Specifically, no cholelithiasis, acute cholecystitis or biliary obstruction. 2. 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 JESSI BARRERA MD SYSTEM ID: ??[id number] Narrative 09/12/2023 3:03 PM CDT MR ABDOMEN W/O CONTRAST 09/12/2023 2:51 PM INDICATION: Patient with right upper/epigastric abdominal pain, currently 19 wks COMPARISON: Right upper quadrant ultrasound 09/09/2023, MRI 723/24 TECHNIQUE: Routine abdomen protocol with multiple T1 and T2 axial and coronal sequences without IV contrast. CONTRAST: None. FINDINGS: HEPATOBILIARY: Borderline luminal dilation of the gallbladder without cholelithiasis, wall edema or adjacent fat stranding. No choledocholithiasis or biliary obstruction. Hepatic parenchyma is unremarkable without definite evidence of chronic liver disease. No significant iron or fat deposition. No suspicious liver lesion visualized. OTHER FINDINGS: Pancreas, spleen and adrenal glands are unremarkable. 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 Simple-appearing right upper pole renal cyst, no specific follow-up recommended. No evidence of bowel obstruction or acute inflammation. No lymphadenopathy or ascites. Gravid uterus partially visualized, protocol is not optimized for evaluation of anatomy. No acute bony abnormality. Procedure Note Jessi Barrera MD - 09/12/2023 MR ABDOMEN W/O CONTRAST 09/12/2023 2:51 PM INDICATION: Patient with right upper/epigastric abdominal pain, currently 19 wks COMPARISON: Right upper quadrant ultrasound 09/09/2023, MRI 723/24 TECHNIQUE: Routine abdomen protocol with multiple T1 and T2 axial and coronal sequences without IV contrast. CONTRAST: None. FINDINGS: HEPATOBILIARY: Borderline luminal dilation of the gallbladder without cholelithiasis, wall edema or adjacent fat stranding. No choledocholithiasis or biliary obstruction. Hepatic parenchyma is unremarkable without definite evidence of chronic liver disease. No significant iron or fat deposition. No suspicious liver lesion visualized. OTHER FINDINGS: Pancreas, spleen and adrenal glands are unremarkable. 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 Simple-appearing right upper pole renal cyst, no specific follow-up recommended. No evidence of bowel obstruction or acute inflammation. No lymphadenopathy or ascites. Gravid uterus partially visualized, protocol is not optimized for evaluation of anatomy. No acute bony abnormality. IMPRESSION: 1. No definite visualized explanation for patient's symptoms. Specifically, no cholelithiasis, acute cholecystitis or biliary obstruction. 2. 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 JESSI BARRERA MD SYSTEM ID: [id number] Kassy Syed MD [facility] MRI ORDERABLES * (ABNORMAL) CBC with platelets and differential (09/12/2023 12:03 PM CDT) Only the most recent of11 resultswithin the time period is included. WBC Count 9.1 4.0 - 11.0 10e3/uL 09/12/2023 12:13 PM CDT [facility] RBC Count 3.69(L) 3.80 - 5.20 10e6/uL 09/12/2023 12:13 PM CDT [facility] Hemoglobin 11.1(L) 11.7 - 15.7 g/dL 09/12/2023 12:13 PM CDT [facility] Hematocrit 33.4(L) 35.0 - 47.0 % 09/12/2023 12:13 PM CDT [facility] MCV 91 78 - 100 fL 09/12/2023 12:13 PM CDT [facility] MCH 30.1 26.5 - 33.0 pg 09/12/2023 12:13 PM CDT [facility] MCHC 33.2 31.5 - 36.5 g/dL 09/12/2023 12:13 PM CDT [facility] RDW 12.6 10.0 - 15.0 % 09/12/2023 12:13 PM CDT [facility] Platelet Count 181 150 - 450 10e3/uL 09/12/2023 12:13 PM CDT [facility] % Neutrophils 79 % 09/12/2023 12:13 PM CDT [facility] % Lymphocytes 12 % 09/12/2023 12:13 PM CDT [facility] % Monocytes 8 % 09/12/2023 12:13 PM CDT [facility] % Eosinophils 1 % 09/12/2023 12:13 PM CDT [facility] % Basophils 0 % 09/12/2023 12:13 PM CDT [facility] % Immature Granulocytes 1 % 09/12/2023 12:13 PM CDT [facility] NRBCs per 100 WBC 0 <1 /100 024 12:13 PM CDT [facility] Absolute Neutrophils 7.2 1.6 - 8.3 10e3/uL 09/12/2023 12:13 PM CDT [facility] Absolute Lymphocytes 1.1 0.8 - 5.3 10e3/uL 09/12/2023 12:13 PM CDT [facility] Absolute Monocytes 0.7 0.0 - 1.3 10e3/uL 09/12/2023 12:13 PM CDT [facility] Absolute Eosinophils 0.1 0.0 - 0.7 10e3/uL 09/12/2023 12:13 PM CDT [facility] Absolute Basophils 0.0 0.0 - 0.2 10e3/uL 09/12/2023 12:13 PM CDT [facility] Absolute Immature Granulocytes 0.1 <=0.4 10e3/uL 09/12/2023 12:13 PM CDT [facility] Absolute NRBCs 0.0 10e3/uL 09/12/2023 12:13 PM CDT [facility] Blood BLOOD SPECIMEN / Unknown Venipuncture / Unknown 09/12/2023 12:03 PM CDT 09/12/2023 12:10 PM CDT Kassy Syed MD LAB - BLOOD ORDERABL ES LABORATORY [facility] [address] [facility] Lab (1st floor, no room number) [place] [address], [facility] * (ABNORMAL) UA with Microscopic reflex to Culture (09/12/2023 12:03 PM CDT) Only the most recent of7 resultswithin the time period is included. Color Urine Light Yellow Colorless, Straw, Light Yellow, Yellow 09/12/2023 12:24 PM CDT LABORATORY Appearance Urine Slightly Cloudy(A) Clear 09/12/2023 12:24 PM CDT LABORATORY Glucose Urine Negative Negative mg/dL 09/12/2023 12:24 PM CDT LABORATORY Bilirubin Urine Negative Negative 12:24 PM CDT LABORATORY Ketones Urine 20(A) Negative mg/dL 09/12/2023 12:24 PM CDT LABORATORY Specific Pease Urine 1.011 1.003 - 1.035 09/12/2023 12:24 PM CDT LABORATORY Blood Urine Negative Negative 09/12/2023 12:24 PM CDT LABORATORY pH Urine 7.5(H) 5.0 - 7.0 09/12/2023 12:24 PM CDT LABORATORY Protein Albumin Urine Negative Negative mg/dL 09/12/2023 12:24 PM CDT LABORATORY Urobilinogen Urine 2.0 Normal, 2.0 mg/dL 09/12/2023 12:24 PM CDT LABORATORY Nitrite Urine Negative Negative 09/12/2023 12:24 PM CDT LABORATORY Leukocyte Esterase Urine Negative Negative 09/12/2023 12:24 PM CDT LABORATORY Mucus Urine Present(A) None Seen /LPF 09/12/2023 12:24 PM CDT LABORATORY Amorphous Crystals Urine Few(A) None Seen /HPF 09/12/2023 12:24 PM CDT LABORATORY RBC Urine <1 <=2 /HPF 09/12/2023 12:24 PM CDT LABORATORY WBC Urine <1 <=5 /HPF 09/12/2023 12:24 PM CDT LABORATORY Squamous Epithelials Urine <1 <=1 /HPF 09/12/2023 12:24 PM CDT LABORATORY Urine MID-STREAM URINE SPECIMEN / Unknown Non-blood Collection / Unknown 09/12/2023 12:03 PM CDT 09/12/2023 12:09 PM CDT Narrative [facility] - 09/12/2023 12:24 PM CDT Urine Culture not indicated Kassy Syed MD LAB - URINE ORDERABL ES [facility] [address] Lab (1st floor, no room number) [place] [phone] [place] [address] * Lipase (09/12/2023 12:03 PM CDT) Only the most recent of7 resultswithin the time period is included. Lipase 34 13 - 60 U/L 09/12/2023 12:29 PM CDT LABORATORY Blood BLOOD SPECIMEN / Unknown Venipuncture / Unknown 09/12/2023 12:03 PM CDT 09/12/2023 12:10 PM CDT Kassy Syed MD LAB - BLOOD ORDERABL ES Performing Organization Address City/[facility]/ZIP Co de Phone Number [facility] [address] Lab (1st floor, no room number) [place] [phone] [place] [address] * (ABNORMAL) Comprehensive metabolic panel (09/12/2023 12:03 PM CDT) Only the most recent of9 resultswithin the time period is included. Sodium 134(L) 135 - 145 mmol/L 09/12/2023 12:29 PM CDT LABORATORY Potassium 3.5 3.4 - 5.3 mmol/L 09/12/2023 12:29 PM CDT LABORATORY Carbon Dioxide (CO2) 19(L) 22 - 29 mmol/L 09/12/2023 12:29 PM CDT LABORATORY Anion Gap 13 7 - 15 mmol/L 09/12/2023 12:29 PM CDT LABORATORY Urea Nitrogen 2.6(L) 6.0 - 20.0 mg/dL 09/12/2023 12:29 PM CDT [facility] Creatinine 0.53 0.51 - 0.95 mg/dL 09/12/2023 12:29 PM CDT [facility] GFR Estimate >90 >60 mL/min/1.7 3m2 09/12/2023 12:29 PM CDT [facility] Comment:eGFR calculated usin 2020 CKD-EPI equation. Calcium 8.7(L) 8.8 - 10.4 mg/dL 09/12/2023 12:29 PM CDT [facility] Comment:Reference intervals for this test were updated on 08/23/2023 to reflect our healthy population more accurately. There may be differences in the flagging of prior results with similar values performed with this method. Those prior results can be interpreted in the context of the updated reference intervals. Chloride 102 98 - 107 mmol/L 09/12/2023 12:29 PM CDT [facility] Glucose 90 70 - 99 mg/dL 09/12/2023 12:29 PM CDT [facility] Alkaline Phosphatase 53 40 - 150 U/L 09/12/2023 12:29 PM CDT [facility] AST 27 0 - 45 U/L 09/12/2023 12:29 PM CDT [facility] ALT 48 0 - 50 U/L 09/12/2023 12:29 PM CDT [facility] Protein Total 6.1(L) 6.4 - 8.3 g/dL 09/12/2023 12:29 PM CDT [facility] Albumin 3.5 3.5 - 5.2 g/dL 09/12/2023 12:29 PM CDT [facility] Bilirubin Total 0.8 <=1.2 mg/dL 09/12/2023 12:29 PM CDT [facility] Blood BLOOD SPECIMEN / Unknown Venipuncture / Unknown 09/12/2023 12:03 PM CDT 09/12/2023 12:10 PM CDT Kassy Syed MD LAB - BLOOD ORDERABL ES [facility] [address] Lab (1st floor, no room number) [place] [address], [place] * (ABNORMAL) UA with Microscopic (09/09/2023 5:38 PM CDT) Only the most recent of2 resultswithin the time period is included. Color Urine Yellow Colorless, Straw, Light Yellow, Yellow 09/09/2023 6:02 PM CDT LABORATORY Appearance Urine Clear Clear 09/09/19 24 6:02 PM CDT LABORATORY Glucose Urine Negative Negative mg/dL 09/09/2023 6:02 PM CDT LABORATORY Bilirubin Urine Negative Negative 6:02 PM CDT LABORATORY Ketones Urine 60(A) Negative mg/dL 09/09/2023 6:02 PM CDT LABORATORY Specific Pease Urine 1.009 1.003 - 1.035 09/09/2023 6:02 PM CDT LABORATORY Blood Urine Negative Negative 09/09/2023 6:02 PM CDT LABORATORY pH Urine 6.5 5.0 - 7.0 09/09/2023 6:02 PM CDT LABORATORY Protein Albumin Urine Negative Negative mg/dL 09/09/2023 6:02 PM CDT LABORATORY Urobilinogen Urine 2.0 Normal, 2.0 mg/dL 09/09/2023 6:02 PM CDT LABORATORY Nitrite Urine Negative Negative 09/09/2023 6:02 PM CDT LABORATORY Leukocyte Esterase Urine Negative Negative 09/09/2023 6:02 PM CDT LABORATORY Bacteria Urine Few(A) None Seen /HPF 09/09/2023 6:02 PM CDT LABORATORY Mucus Urine Present(A) None Seen /LPF 09/09/2023 6:02 PM CDT LABORATORY RBC Urine 1 <=2 /HPF 09/09/2023 6:02 PM CDT LABORATORY WBC Urine 0 <=5 /HPF 09/09/2023 6:02 PM CDT LABORATORY Squamous Epithelials Urine 1 <=1 /HPF 09/09/2023 6:02 PM CDT LABORATORY Hyaline Casts Urine 1 <=2 /LPF 09/09/2023 6:02 PM CDT LABORATORY Urine MID-STREAM URINE SPECIMEN / Unknown Non-blood Collection / Unknown 09/09/2023 5:38 PM CDT 09/09/2023 5:45 PM CDT Romel Holly MD LAB - URINE ROLDAN SANTA [facility] [address] Lab (1st floor, no room number) [place] [address], [facility] * US Abdomen Limited (09/09/2023 5:27 PM CDT) Anatomical Region Laterality Modality Abdomen/Pelvis Ultrasound 09/09/2023 5:27 PM CDT Impressions 09/09/2023 5:34 PM CDT IMPRESSION: 1. ??Mobile sludge in the gallbladder lumen. No shadowing gallstones, acute cholecystitis or biliary ductal dilatation. Narrative 09/09/2023 5:34 PM CDT EXAM: US ABDOMEN LIMITED LOCATION: [facility] DATE: 09/09/2023 INDICATION: epigastric abd pain COMPARISON: [...] The visualized portions are normal. Procedure Note iRsa Ferrera MD - 09/09/2023 EXAM: US ABDOMEN LIMITED LOCATION: [facility] DATE: 09/09/2023 INDICATION: epigastric abd pain COMPARISON: [...] or biliary ductal dilatation. Romel Holly MD IMG US ORDERABLE S * Bilirubin direct (09/09/2023 2:49 PM CDT) Bilirubin Direct 0.24 0.00 - 0.30 mg/dL 09/09/2023 3:34 PM CDT [facility] Blood STRUCTURE OF RIGHT HAND / Unknown Venipuncture / Unknown 09/09/2023 2:49 PM CDT 09/09/2023 3:02 PM CDT Romel Holly MD LAB - BLOOD ORDE KIET LABORATORY [facility] Lab [address] Lab (1st floor, no room number) [place] [address] * US OB >14 Weeks Limited wo Measurement (08/30/2023 5:52 PM CDT) Anatomical Region Laterality Modality Abdomen/Pelvis Ultrasound 08/30/2023 5:52 PM CDT Impressions 08/30/2023 5:58 PM CDT IMPRESSION: 1. ??Single living intrauterine gestation. 2. ??Slightly complex 1.2 cm left ovarian cyst, likely a hemorrhagic cyst. Narrative 08/30/2023 5:58 PM CDT EXAM: US OB LIMITED >14 WEEKS WO MEASUREMENT LOCATION: [facility] DATE: 08/30/2023 INDICATION: Evaluation of lower [...] OB LIMITED >14 WEEKS WO MEASUREMENT LOCATION: [facility] DATE: 08/30/2023 INDICATION: Evaluation of lower abdominal pain, dec movement, [id number] weeks COMPARISON: Ultrasound 07/05/2023 TECHNIQUE: Transabdominal and [...] cyst, likely a hemorrhagiccyst. Phyllis Walden PA-C IMG US ORDERABL ES * Extra Red Top Tube (08/30/2023 2:12 PM CDT) Only the most recent of5 resultswithin the time period is included. Hold Specimen [facility] 08/30/2023 3:31 PM CDT [facility] Blood STRUCTURE OF LEFT UPPER LIMB / Unknown Venipuncture / Unknown 08/30/2023 2:12 PM CDT 08/30/2023 2:29 PM CDT Phyllis Walden PA-C LAB - BLOOD ORD ERABLES Performing Organization Address City/[facility]/ZIP Co de Phone Number [facility] [address] Lab (1st floor, no room number) [place] [address] * Extra Blue Top Tube (08/30/2023 2:12 PM CDT) Only the most recent of4 resultswithin the time period is included. Hold Specimen [facility] 08/30/2023 3:31 PM CDT [facility] Blood STRUCTURE OF LEFT UPPER LIMB / Unknown Venipuncture / Unknown 08/30/2023 2:12 PM CDT 08/30/2023 2:29 PM CDT Phyllis Walden PA-C LAB - BLOOD ORD ERABLES [facility] [address] [place] ? Lab (1st floor, no room number) [place] [phone] * Occult blood stool (08/28/2023 5:19 AM CDT) Occult Blood Negative Negative [place] 08/28/2023 5:25 AM CDT LABORATORY Stool RECTAL CONTENTS / Unknown Non-blood Collection / Unknown 08/28/2023 5:19 AM CDT 08/28/2023 5:22 AM CDT Tricia Gregg DO LAB - STOOLS ORDER JOHN LABORAT[facility] Lab [address] Lab (1st floor, no room number) [place] [address] * US OB < 14 Weeks [...] US OB < 14 WEEKS SINGLE-TRANSABDOMINAL LOCATION: [facility] DATE: 07/05/2023 INDICATION: Bleeding during . [...] US OB < 14 WEEKS SINGLE-TRANSABDOMINAL LOCATION: [facility] DATE: 07/05/2023 INDICATION: Bleeding during . [...] hematoma measuring 2.4 cm. Miranda Estrada MD [facility] US ORDERABLES * Adult Type and Screen (07/05/2023 3:30 AM CDT) ABO/RH(D) A POS 07/05/2023 3:15 AM CDT RH BLOOD BANK Antibody Screen Negative Negative 07/05/2023 3:15 AM CDT [facility] B[facility] SPECIMEN EXPIRATION DATE [id number] 07/05/2023 3:15 AM CDT [facility] Blood BLOOD SPECIMEN / Unknown Venipuncture / Unknown 07/05/2023 3:30 AM CDT 07/05/2023 3:34 AM CDT Miranda Estrada MD LAB - BLOOD BANK T EST ORDER BLOOD BANK [address] [place] [address] * (ABNORMAL) HCG quantitative (07/05/2023 3:30 AM CDT) Only the most recent of2 resultswithin the time period is included. hCG Quantitative 53,109(H) <5 mIU/mL 07/05/19 4:59 AM CDT [facility] Comment: Adult: 0-5 mIU/mL for healthy non- person Neonates: Should be within normal ranges by 2 days after Blood BLOOD SPECIMEN / Unknown Venipuncture / Unknown 07/05/2023 3:30 AM CDT 07/05/2023 3:34 AM CDT Miranda Estrada MD LAB - BLOOD ORDERA BLES [facility] [address] Lab (1st floor, no room number) [place] [address] * US OB 1st Trimester W Transvaginal [...] 1ST TRIMESTER W TRANSVAGINAL W DOPPLER LOCATION: [facility] DATE: 06/26/2023 INDICATION: lower abdominal pain, [...] 1ST TRIMESTER W TRANSVAGINAL W DOPPLER LOCATION: [facility] DATE: 06/26/2023 INDICATION: lower abdominal pain, [...] the time period is included. Hold Specimen [facility] 06/26/2023 7:46 PM CDT [facility] Blood STRUCTURE OF LEFT UPPER LIMB / Unknown Venipuncture / Unknown 06/26/2023 6:27 PM CDT 06/26/2023 6:34 PM CDT Ivan Grace PA-C LAB - BLOOD ORDERABL ES LABORATORY [facility] [address] [facility] Lab (1st floor, no room number) [place] [address] * Basic metabolic panel (06/26/2023 6:22 PM CDT) Pathologist [facility] Sodium 136 135 - 145 mmol/L 06/26/2023 [...] - 107 mmol/L 06/26/2023 6:59 PM CDT LABORATORY Carbon Dioxide (CO2) 25 22 - 29 mmol/L 06/26/2023 6:59 PM CDT LABORATORY Anion Gap 9 7 - 15 mmol/L 06/26/2023 6:59 PM CDT LABORATORY Urea Nitrogen 7.8 6.0 - 20.0 mg/dL 06/26/2023 6:59 PM CDT LABORATORY Creatinine 0.58 0.51 - 0.95 mg/dL 06/26/2023 6:59 PM CDT LABORATORY GFR Estimate >90 >60 mL/min/1. 73m2 06/26/2023 6:59 PM CDT LABORATORY Calcium 9.6 8.6 - 10.0 mg/dL 06/26/2023 6:59 PM CDT LABORATORY Glucose 90 70 - 99 mg/dL 06/26/2023 6:59 PM CDT LABORATORY Blood STRUCTURE OF LEFT UPPER LIMB / Unknown Venipuncture / Unknown 06/26/2023 6:22 PM CDT 06/26/2023 6:35 PM CDT Ivan Grace PA-C LAB - BLOOD ORDERABL ES LABORATORY [facility] [address] Lab (1st floor, no room number) [place] [id number] * (ABNORMAL) Lipid panel reflex to [...] Calculated 90 <100 mg/dL 10/18/2018 9:10 AM T [facility] Comment:Desirable: <100 mg/d l Non HDL Cholesterol 129 <130 mg/dL 10/18/2018 9:10 AM CDT [facility] Blood specimen (specimen) 10/17/2018 1:31 PM CDT 10/17/2018 1:32 PM CDT Kathy Ross PA-C LAB - BLOOD ORDERABLES [facility] [address] [place] [address] * Pap imaged thin layer screen with HPV - recommended age 30 - 65 years (select HPV order below) (02/10/2017 8:03 AM NETWORK CONSULTANT) PAP SERENA Pozo Report Patient Name: ADAM VELASQUEZ MR#: [id number] Specimen #: [id number] Collected: 02/10/2017 Received: 02/11/2017 [...] MIRNA Nieves (ASCP) Processed and screened at [facility], [facility] CLINICAL HISTORY: LMP: 01/14/17 Previous normal pap Date of Last Pap: 12/14/13, Papanicolaou Test Limitations: ??Cervical cytology is a screening test with limited sensitivity; regular screening is critical for cancer prevention; Pap tests are primarily effective for the diagnosis/preventi on of squamous cell carcinoma, not adenocarcinomas or other cancers. TESTING LAB LOCATION: [facility] [address] [place], [place] ??[address] COLLECTION SITE: Client: ??[facility] Location: [facility] (R) [facility] Cytologic material (specimen) 02/10/2017 8:03 AM NETWORK CONSULTANT 02/11/2017 10:26 AM NETWORK CONSULTANT Jered Barrow MD LAB - OPTIME CL INICAL SPECIMEN COPATH * HPV High Risk Types DNA Cervical (02/10/2017 7:52 AM NETWORK CONSULTANT) HPV 16 DNA Negative NEG^Nega tive 02/16/2017 2:35 PM NETWORK CONSULTANT [facility] HPV 18 DNA Negative NEG^Nega tive 02/16/2017 2:35 PM NETWORK CONSULTANT [facility] Other HR HPV Negative NEG^Nega tive 02/16/2017 2:35 PM NETWORK CONSULTANT [facility] Final Diagnosis This patient's sample is negative for HPV DNA. 02/16/2017 2:35 PM NETWORK CONSULTANT [facility] Comment: This test was developed and its performance characteristics determined by the [facility]. It has not been [...] Specimen Description Cervical Cells 02/15/2017 9:32 AM NETWORK CONSULTANT [facility] Comment:[id number] Cervical Cells 02/10/2017 7: 52 AM NETWORK CONSULTANT 02/10/2017 8:14 AM NETWORK CONSULTANT Jered Barrow MD LAB - BLOOD ORD ERABLES Performing Organization Address [facility] Co de Phone Number [facility] [address] [place] [address] * Hepatitis C antibody (09/23/2011 1:54 PM CDT) Hepatitis C Antibody Negative NEG [facility] Blood specimen (specimen) 09/23/2011 1:54 PM CDT 09/23/2011 1:55 PM CDT Mary Clark MD LAB - BLOOD ORDERABL ES Performing Organization Address [facility] Co de Phone Number [facility] * HIV 1 and 2 Antibody (12/10/2010 11:34 AM CDT) HIV 1&2 Antibody Negative NEG [facility] Blood specimen (specimen) 12/10/2010 11:34 AM CDT 12/10/2010 11:35 AM CDT Aleksey Argueta MD LAB - BLOOD ORDERABL ES Performing Organization Address [facility] Co de Phone Number [facility] from Last 3 Months or Most Recently Relevant to Health Maintenance Advance Directives For more information, please contact: [phone] * Full Code (Latest Code Status on File) Date Activated Date Inactivated Comments 05/09/2021 10:26 PM 05/10/2021 2:52 PM All basic and advanced life-sustaining interventions are performed as appropriate Question Answer Comments Code status determined by: Discussion with brett nt/ legal decision maker Care Teams Bureau Director Relationship Specialty Start Date End Date [facility], [facility] [address] [place] [address] PCP - General 03/02/20 Mary Kate Herrera PA-C [id number] [place] [address] Assigned PCP 02/15/21 Randal Joe MD [facility] [id number] [place] [address] 07/20/22
--- OUTSIDE RECORDS SUMMARY | 2023-09-13 00:35 | XMS_ITS | Clinical Summary ---
Author Organization [place] Address [address] [place] [address] Care Team Providers Care Supervisor Pressing Department Name Role Phone Clinic, [facility] Primary Care Pro vider Mary Kate Herrera PA-C Unavailable Randal Joe MD Unavailable Allergies Active Allergy Reactions Criticality Noted Date [...] Noted Date Diagnosed Date Resolved Date Health Intermediate 09/22/2010 07/25/2023 Overview: x DX V65.8 REPLACED WITH [id number] [employer]TER (05/15/2012) 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 7 Supervision of normal first 08/06/2005 01/24/2006 Contraception 09/06/2007 Encounters Date Type Department Care Team Description 09/12/2023 9:44 AM CDT - 09/12/2023 3:41 PM CDT Emergency [facility] Emergency Dept [address] [place] [address] Kassy Rahman MD Right sided abdominal pain; Upper abdominal pain Discharge Disposition: Home or Self Care 09/12/2023 Travel 09/09/2023 3:22 PM CDT - 09/09/2023 6:21 PM CDT Emergency [facility] Emergency Dept [address] [place] [address] Romel Holly MD Abdominal pain, epigastric; Gallbladder sludge Discharge Disposition: Home or Self Care 09/09/2023 12:57 PM CDT - 09/09/2023 1:40 PM CDT Hospital Encounter [facility] [address] [place] [address] Brianda Pool MD Chan, Meredith, MD Discharge Disposition: Home or Self Care 09/01/2023 10:08 PM CDT - 09/01/2023 11:48 PM CDT Emergency [facility] Emergency Dept [address] [place] [address] Tricia Gregg, DO Constipation, unspecified constipation type; Abdominal pain, unspecified abdominal location Discharge Disposition: Home or Self Care 09/01/2023 8:42 PM CDT - 09/01/2023 9:37 PM CDT Hospital Encounter [facility] [address] [place] [address] Annika Kirkland MD Discharge Disposition: Home or Self Care 09/01/2023 Travel 08/30/2023 4:10 PM CDT - 08/30/2023 7:45 PM CDT Emergency [facility] Emergency Dept [address] [place] [address] Phyllis Walden, PA-C Abdominal pain during in second trimester; Hemorrhagic cyst of left ovary Discharge Disposition: Home or Self Care 08/30/2023 Travel 08/28/2023 4:36 AM CDT - 08/28/2023 6:35 AM CDT Emergency [facility] Emergency Dept [address] [place] [address] Tricia Gregg, Jessi Lou MD Abdominal pain during , antepartum Discharge Disposition: Home or Self Care 08/28/2023 Travel 08/22/2023 11:10 AM CDT - 08/22/2023 1:57 PM CDT Emergency [facility] Emergency Dept [address] [place] [address] Mai Headley, PAJohnC Constipation during in second trimester; UTI in , second trimester Discharge Disposition: Home or Self Care 08/22/2023 Travel 07/18/2023 5:21 AM CDT - 07/18/2023 9:08 AM CDT Emergency [facility] Emergency Dept [address] [place] [address] Kendall Omalley MD Nausea and vomiting during Discharge Disposition: Home or Self Care 07/18/2023 Travel 07/16/2023 11:43 PM CDT - 07/17/2023 1:40 AM CDT Emergency [facility] Emergency Dept [address] [place] [address] Louie Allen MD Constipation, unspecified constipation type Discharge Disposition: Home or Self Care 07/08/2023 8:01 PM CDT - 07/08/2023 10:27 PM CDT Emergency [facility] Emergency Dept [address] [place] [address] Shekhar Rashid MD Nausea; Anxiety; First trimester Discharge Disposition: Home or Self Care 07/08/2023 Travel 07/05/2023 2:36 AM CDT - 07/05/2023 5:51 AM CDT Emergency [facility] Emergency Dept [address] [place] [address] Miranda Estrada MD Vaginal bleeding affecting early ; Subchorionic hematoma in first trimester, single or unspecified fetus Discharge Disposition: Home or Self Care 07/05/2023 Travel 06/26/2023 6:36 PM CDT - 06/26/2023 8:49 PM CDT Emergency [facility] Emergency Dept [address] [place] [address] Ivan Grace PA-C Subchorionic hemorrhage of placenta in first trimester Discharge Disposition: Home or Self Care 06/26/2023 Travel from Last 3 Months Immunizations Name [...] 09/12/2023 9:35 AM CDT Plan of Treatment Health Maintenance Due Date Last Done Comments ADVANCE CARE PLANNING 1985 ANNUAL REVIEW OF HM ORDERS 1985 URINE DRUG SCREEN 1985 LIPID 10/18/2019 10/17/2018, 05/2017, 07/01/2015, Additional history exists PHQ-9 08/06/2021 02/06/2021, 07/10, 08/19/2018, Additional history exists YEARLY PREVENTIVE VISIT 11/03/2021 11/04/19 21, 12/21/2019, 10/17/2018, Additional history exists COVID-19 Vaccine ( season) 2022 MATERNAL SCREENING DISCUSSION 07/09/2023 INFLUENZA VACCINE (#1) 2023 02/13/2021, 2019 RSV VACCINE ( & 60+) (1 - Risk 1-dose series) 12/10/2023 HPV TEST 03/26/2025 02/10/2017 PAP 03/26/2025 03/26/2022, 0 05/2017, 12/14/2013, Additional history exists GLUCOSE 09/11/2026 09/12/2023, 03/2023, 09/01/2023, Additional history exists DTAP/TDAP/TD IMMUNIZATION (3 - [...] THIN LAYER SCREEN Routine 02/10/2017 8:[address] STENOGRAPHER Screening for malignant neoplasm of cervix HPV HIGH RISK TYPES DNA CERVICAL Routine 02/10/2017 7:[address] STENOGRAPHER Screening for malignant neoplasm of cervix HEPATITIS [...] gravid uterus. JESSI BARRERA MD SYSTEM ID: ??[id number] Narrative 09/12/2023 3:03 PM CDT MR ABDOMEN [...] gravid uterus. JESSI BARRERA MD SYSTEM ID: [id number] Kassy Syed MD IMG MRI ORDERABLES * (ABNORMAL) CBC with platelets [...] - 5.3 10e3/uL 09/12/2023 12:13 PM CDT LABORATORY Absolute Monocytes 0.7 0.0 - 1.3 10e3/uL 09/12/2023 12:13 PM CDT LABORATORY Absolute Eosinophils 0.1 0.0 - 0.7 10e3/uL 09/12/2023 12:13 PM CDT LABORATORY Absolute Basophils 0.0 0.0 - 0.2 10e3/uL 09/12/2023 12:13 PM CDT LABORATORY Absolute Immature Granulocytes 0.1 <=0.4 10e3/uL 09/12/2023 12:13 PM CDT LABORATORY Absolute NRBCs 0.0 10e3/uL 09/12/2023 12:13 PM CDT LABORATORY Blood BLOOD SPECIMEN / Unknown Venipuncture / Unknown 09/12/2023 12:03 PM CDT 09/12/2023 12:10 PM CDT Kassy Syed MD LAB - BLOOD ORDERABL ES LABORATORY [facility] Acute Care Lab [address] [facility] Lab (1st floor, no room number) [place] [address], [facility] * (ABNORMAL) UA with [...] mg/dL 09/12/2023 12:24 PM CDT LABORATORY Specific [place] Urine 1.011 1.003 - 1.035 09/12/2023 12:24 PM CDT LABORATORY Blood Urine Negative Negative 09/12/2023 12:24 PM CDT LABORATORY pH Urine 7.5(H) 5.0 - 7.0 09/12/2023 12:24 PM CDT RH LABORATORY Protein Albumin Urine Negative Negative mg/dL 09/12/2023 12:24 PM CDT RH LABORATORY Urobilinogen Urine 2.0 Normal, 2.0 mg/dL 09/12/2023 12:24 PM CDT RH LABORATORY Nitrite Urine Negative Negative 09/12/2023 12:24 PM CDT RH LABORATORY Leukocyte Esterase Urine Negative Negative 09/12/2023 12:24 PM CDT RH LABORATORY Mucus Urine Present(A) None Seen /LPF 09/12/2023 12:24 PM CDT RH LABORATORY Amorphous Crystals Urine Few(A) None Seen /HPF 09/12/2023 12:24 PM CDT RH LABORATORY RBC Urine <1 <=2 /HPF 09/12/2023 12:24 PM CDT RH LABORATORY WBC Urine <1 <=5 /HPF 09/12/2023 12:24 PM CDT RH LABORATORY Squamous Epithelials Urine <1 <=1 /HPF 09/12/2023 12:24 PM CDT LABORATORY Urine MID-STREAM URINE SPECIMEN / Unknown Non-blood Collection / Unknown 09/12/2023 12:03 PM CDT 09/12/2023 12:09 PM CDT Narrative LABORATORY - 09/12/2023 12:24 PM CDT Urine Culture not indicated Kassy Syed MD LAB - URINE ORDERABL ES LABORATORY [facility] Acute Care Lab [address] [facility] Lab (1st floor, no room number) [place] [address] * Lipase (09/12/2023 12:03 PM CDT) Only the most recent of7 resultswithin the time period is included. Lipase 34 13 - 60 U/L 09/12/2023 12:29 PM CDT LABORATORY Blood BLOOD SPECIMEN / Unknown Venipuncture / Unknown 09/12/2023 12:03 PM CDT 09/12/2023 12:10 PM CDT Kassy Syed MD LAB - BLOOD ORDERABL ES RH LABORATORY [facility] Acute Care Lab [address] [facility] Lab (1st floor, no room number) [place] [address], [facility] * (ABNORMAL) Comprehensive metabolic panel (09/12/2023 12:03 PM CDT) Only the most recent of9 resultswithin the time period is included. Sodium 134(L) 135 - 145 mmol/L 09/12/2023 12:29 PM CDT RH LABORATORY Potassium 3.5 3.4 - 5.3 mmol/L 09/12/2023 12:29 PM CDT RH LABORATORY Carbon Dioxide (CO2) 19(L) 22 - 29 mmol/L 09/12/2023 12:29 PM CDT RH LABORATORY Anion Gap 13 7 - 15 mmol/L 09/12/2023 12:29 PM CDT RH LABORATORY Urea Nitrogen 2.6(L) 6.0 - 20.0 [...] - 50 U/L 09/12/2023 12:29 PM CDT LABORATORY Protein Total 6.1(L) 6.4 - 8.3 g/dL 09/12/2023 12:29 PM CDT LABORATORY Albumin 3.5 3.5 - 5.2 g/dL 09/12/2023 12:29 PM CDT LABORATORY Bilirubin Total 0.8 <=1.2 mg/dL 09/12/2023 12:29 PM CDT LABORATORY Blood BLOOD SPECIMEN / Unknown Venipuncture / Unknown 09/12/2023 12:03 PM CDT 09/12/2023 12:10 PM CDT Kassy Syed MD LAB - BLOOD ORDERABL ES LABORATORY [facility] Acute Care Lab [address] [facility] Lab (1st floor, no room number) [place] [address], [facility] * (ABNORMAL) UA with Microscopic (09/09/2023 5:38 PM CDT) Only the most recent of2 resultswithin the time period is included. Color Urine Yellow Colorless, Straw, Light Yellow, Yellow 09/09/2023 6:02 PM CDT LABORATORY Appearance Urine Clear Clear 09/09/19 24 6:02 PM CDT LABORATORY Glucose Urine Negative Negative mg/dL 09/09/2023 6:02 PM CDT LABORATORY Bilirubin Urine Negative Negative 4 6:02 PM CDT LABORATORY Ketones Urine 60(A) Negative mg/dL 09/09/2023 6:02 PM CDT LABORATORY Specific [place] Urine 1.009 1.003 - 1.035 09/09/2023 6:02 PM CDT LABORATORY Blood Urine Negative Negative 09/09/2023 6:02 PM CDT LABORATORY pH Urine 6.5 5.0 - 7.0 09/09/2023 6:02 PM CDT LABORATORY Protein Albumin Urine Negative Negative mg/dL 09/09/2023 6:02 PM CDT LABORATORY Urobilinogen Urine 2.0 Normal, 2.0 mg/dL 09/09/2023 6:02 PM CDT RH LABORATORY Nitrite Urine Negative Negative 09/09/2023 6:02 PM CDT RH LABORATORY Leukocyte Esterase Urine Negative Negative 09/09/2023 6:02 PM CDT RH LABORATORY Bacteria Urine Few(A) None Seen /HPF 09/09/2023 6:02 PM CDT RH LABORATORY Mucus Urine Present(A) [...] Romel Holly MD LAB - URINE ORDE [facility] Acute Care Lab [address] Lab (1st floor, no room number) [place] [address] * US Abdomen Limited (09/09/2023 5:27 PM CDT) Anatomical Region Laterality Modality Abdomen/Pelvis Ultrasound 09/09/2023 5:27 PM CDT Impressions 09/09/2023 5:34 PM CDT IMPRESSION: 1. ??Mobile sludge in the gallbladder lumen. No shadowing gallstones, acute cholecystitis or biliary ductal dilatation. Narrative 09/09/2023 5:34 PM CDT EXAM: US ABDOMEN LIMITED LOCATION: [facility] DATE: 09/09/2023 INDICATION: epigastric abd pain [...] - 09/09/2023 EXAM: US ABDOMEN LIMITED LOCATION: [facility] DATE: 09/09/2023 INDICATION: epigastric abd pain [...] - 0.30 mg/dL 09/09/2023 3:34 PM CDT LABORATORY Blood STRUCTURE OF RIGHT HAND / Unknown Venipuncture / Unknown 09/09/2023 2:49 PM CDT 09/09/2023 3:02 PM CDT Romel Holly MD LAB - BLOOD ME[facility]STOWN[facility]y [facility] Organization Address City/State/ZIP Co de Phone Number [facility] Acute Care Lab [address] Lab (1st floor, no room number) [place] [address], [facility] * US OB >14 Weeks Limited wo Measurement (08/30/2023 5:52 PM CDT) Anatomical Region Laterality Modality Abdomen/Pelvis Ultrasound 08/30/2023 5:52 PM CDT Impressions 08/30/2023 5:58 PM CDT IMPRESSION: 1. ??Single living intrauterine gestation. 2. ??Slightly complex 1.2 cm left ovarian cyst, likely a hemorrhagic cyst. Narrative 08/30/2023 5:58 PM CDT EXAM: US OB LIMITED >14 WEEKS WO MEASUREMENT LOCATION: [facility] DATE: 08/30/2023 INDICATION: Evaluation of lower [...] OB LIMITED >14 WEEKS WO MEASUREMENT LOCATION: [facility] DATE: 08/30/2023 INDICATION: Evaluation of lower abdominal pain, dec movement, inwosc09 weeks COMPARISON: Ultrasound 07/05/2023 TECHNIQUE: Transabdominal and [...] the time period is included. Hold Specimen [facility] 08/30/2023 3:31 PM CDT RH LABORATORY Blood STRUCTURE OF LEFT UPPER LIMB / Unknown Venipuncture / Unknown 08/30/2023 2:12 PM CDT 08/30/2023 2:29 PM CDT Phyllis Walden PA-C LAB - BLOOD ORD ERABLES [facility] Acute Care Lab [address] Lab (1st floor, no room number) [place] [address] * Extra Blue Top Tube (08/30/2023 2:12 PM CDT) Only the most recent of4 resultswithin the time period is included. Hold Specimen [facility] 08/30/2023 3:31 PM CDT LABORATORY Blood STRUCTURE OF LEFT UPPER LIMB / Unknown Venipuncture / Unknown 08/30/2023 2:12 PM CDT 08/30/2023 2:29 PM CDT Phyllis Walden PA-C LAB - BLOOD ORD ERABLES [facility] Care Lab [address] Lab (1st floor, no room number) [place] [address] * Occult blood stool (08/28/2023 5:19 AM CDT) Occult Blood Negative Negative [place] 08/28/2023 5:25 AM CDT LABORATORY Stool RECTAL CONTENTS / Unknown Non-blood Collection / Unknown 08/28/2023 5:19 AM CDT 08/28/2023 5:22 AM CDT Tricia Gregg DO LAB - STOOLS ORDER [facility] Lab [address] Lab (1st floor, no room number) [place] [address] * US OB < 14 [...] US OB < 14 WEEKS SINGLE-TRANSABDOMINAL LOCATION: [facility] DATE: 07/05/2023 INDICATION: Bleeding during . [...] US OB < 14 WEEKS SINGLE-TRANSABDOMINAL LOCATION: [facility] DATE: 07/05/2023 INDICATION: Bleeding during . [...] 10 weeks 3 days by crown-rumplength measurement, [facility] 01/28/2024. 2. Small subchorionic hematoma measuring 2.4 cm. Miranda Estrada MD [facility] [place] ORDER[place]LES * Adult Type and Screen (07/05/2023 3:30 AM CDT) ABO/RH(D) A POS 07/05/2023 3:15 AM CDT RH BLOOD BANK Antibody Screen Negative Negative 07/05/2023 3:15 AM CDT RH BLOOD BANK SPECIMEN EXPIRATION DATE [id number] 07/05/2023 3:15 AM CDT RH BLOOD BANK Blood BLOOD SPECIMEN / Unknown Venipuncture / Unknown 07/05/2023 3:30 AM CDT 07/05/2023 3:34 AM CDT Miranda Estrada MD LAB - BLOOD BANK T EST ORDER Performing Organization Address City/[facility]/ZIP Co de Phone Number BLOOD BANK [address] [place] [address], [facility] * (ABNORMAL) HCG quantitative (07/05/2023 [...] - BLOOD ORDERA BLES Performing Organization Address [facility]/ZIP Co de Phone Number LABORATORY [facility] Acute Care Lab [address] [facility] Lab (1st floor, no room number) [place] [address] * US OB 1st Trimester [...] 1ST TRIMESTER W TRANSVAGINAL W DOPPLER LOCATION: [facility] DATE: 06/26/2023 INDICATION: lower abdominal pain, [...] 1ST TRIMESTER W TRANSVAGINAL W DOPPLER LOCATION: [facility] DATE: 06/26/2023 INDICATION: lower abdominal pain, [...] hemorrhage measuring 2 cm. Ivan Grace PA-C [facility] [place] ORDER[place] * Extra Blood Bank Purple Top Tube (06/26/2023 6:27 PM CDT) Only the most recent of2 resultswithin the time period is included. Hold Specimen [facility] 06/26/2023 7:46 PM CDT RH LABORATORY Blood STRUCTURE OF LEFT UPPER LIMB / Unknown Venipuncture / Unknown 06/26/2023 6:27 PM CDT 06/26/2023 6:34 PM CDT Ivan Grace PA-C LAB - BLOOD ORDERABL ES RH LABORATORY [facility] Acute Care Lab [address] Lab (1st floor, no room number) [place] [address] * Basic metabolic panel (06/26/2023 6:22 PM CDT) Sodium 136 135 - 145 mmol/L 06/26/2023 6:59 PM CDT LABORATORY Comment:Reference intervals for this [...] LAB - BLOOD ORDERABL ES RH LABORATORY [facility] Acute Care Lab [address] Lab (1st floor, no room number) [place] [address] * (ABNORMAL) Lipid panel reflex to direct LDL Non-fasting (10/17/2018 1:31 PM CDT) Cholesterol 167 <200 mg/dL 10/18/2018 8:52 AM CDT [facility] Triglycerides 197(H) <150 mg/dL 10/18/2018 8:52 AM CDT [facility] Comment: Borderline high: ??150-199 mg/dl High: ? 200-499 mg/dl Very high: ? >499 mg/dl Non Fasting HDL Cholesterol 38(L) >49 mg/dL 9 9:10 AM CDT [facility] LDL Cholesterol Calculated 90 <100 mg/dL 10/18/2018 9:10 AM CDT [facility] Comment:Desirable: <100 mg/d l Non HDL Cholesterol 129 <130 mg/dL 10/18/2018 9:10 AM CDT [facility] Blood specimen (specimen) 10/17/2018 1:31 PM CDT 10/17/2018 1:32 PM CDT Kathy Ross PA-C LAB - BLOOD ORDERABLES [facility] [address] [place] [address] * Pap imaged thin layer screen with HPV - recommended age 30 - 65 years (select HPV order below) (02/10/2017 8:[address] STENOGRAPHER) PAP NIL TRACIE Pozo Report Patient Name: ADAM VELASQUEZ MR#: [id number] Specimen #: [id number] Collected: 02/10/2017 Received: 02/11/2017 [...] MIRNA Nieves (ASCP) Processed and screened at [facility] CLINICAL HISTORY: LMP: 01/14/17 Previous normal pap Date of Last Pap: 12/14/13, Papanicolaou Test Limitations: ??Cervical cytology is a screening test with limited sensitivity; regular screening is critical for cancer prevention; Pap tests are primarily effective for the diagnosis/preventi on of squamous cell carcinoma, not adenocarcinomas or other cancers. TESTING LAB LOCATION: [address] ??[id number] COLLECTION SITE: Client: ??[facility] Location: [facility] Cytologic material (specimen) 02/10/2017 8:[address] STENOGRAPHER 02/11/2017 10:[address] STENOGRAPHER Jered Barrow MD LAB - OPTIME CL INICAL SPECIMEN COPATH * HPV High Risk Types DNA Cervical (02/10/2017 7:[address] STENOGRAPHER) HPV 16 DNA Negative NEG^Nega tive 02/16/2017 2:[address] STENOGRAPHER [facility] HPV 18 DNA Negative NEG^Nega tive 02/16/2017 2:[address] STENOGRAPHER [facility] Other HR HPV Negative NEG^Nega tive 02/16/2017 2:[address] STENOGRAPHER [facility] Final Diagnosis This patient's sample is negative for HPV DNA. 02/16/2017 2:[address] STENOGRAPHER [facility] Comment: This test was developed and its performance characteristics determined by the [facility], Molecular Diagnostics Laboratory. It has not [...] Specimen Description Cervical Cells 02/15/2017 9:[address] STENOGRAPHER [facility] Comment:[id number] Cervical Cells 02/10/2017 7: [address] STENOGRAPHER 02/10/2017 8:[address] STENOGRAPHER Jered Barrow MD LAB - BLOOD ORD ERABLES [facility] [address] [place] [address] * Hepatitis C antibody (09/23/2011 1:54 PM CDT) Hepatitis C Antibody Negative NEG [facility] Blood specimen (specimen) 09/23/2011 1:54 PM CDT 09/23/2011 1:55 PM CDT Mary Clark MD LAB - BLOOD ORDERABL ES [facility] * HIV 1 and 2 Antibody (12/10/2010 11:34 AM CDT) HIV 1&2 Antibody Negative NEG [facility] Blood specimen (specimen) 12/10/2010 11:34 AM CDT 12/10/2010 11:35 AM CDT Aleksey Argueta MD LAB - BLOOD ORDERABL ES [facility] from Last 3 Months or Most Recently Relevant to Health Maintenance Advance Directives For more information, please contact: [phone] * Full Code (Latest Code Status on File) Date Activated Date Inactivated Comments 05/09/2021 10:26 PM 05/10/2021 2:52 PM All basic and advanced life-sustaining interventions are performed as appropriate Question Answer Comments Code status determined by: Discussion with brett nt/ legal decision maker Care Teams Supervisor Pressing Department Relationship Specialty Start Date End Date [facility] [address] [place] [address] PCP - General 03/02/20 Mary Kate Herrera PA-C [address] [place] [address] Assigned PCP 02/15/[address] [facility] [address] [place] [address] 07/20/22
--- OUTSIDE RECORDS SUMMARY | 2023-09-13 00:35 | XMS_ITS | Encounter Summary ---
Author Organization [place] Address [address] [facility] [place] [address] Care Team Providers Care Teen Counselor Name Role Phone Clinic, [facility] Primary Care Pro vider Mary Kate Herrera PA-C Unavailable Randal Joe MD Unavailable [phone] Reason for Referral * Consultation (Priority: 1-2 Weeks) - Pending Review Specialty Diagnoses / Procedures Referred By Andriy bradford Referred To Contact Gastroenterology Diagnoses Right sided abdominal pain Upper abdominal pain Kassy Rahman MD [facility] [address] [place] [address] Referral ID Status Reason Start Date Expiration Date V isits Requested Visits Authorized [id number] Pending Review 09/12/2023 09/11/2024 1 1 Question Answer Reason for Referral: General GI Scheduling Instructions: [facility] will call you to coordinate your care as prescribed by the provider. If you don? t hear from a registered representative within 2 business days, please call . Comments Please be aware that coverage of these services is subject to the terms and limitations of your health insurance plan. Call member services at your health plan with any benefit or coverage questions. [facility] will call you to coordinate your care as prescribed by the provider. If you don? t hear from a registered representative within 2 business days, please call . Reason for Visit * Reason Comments Nausea & Vomiting Encounter Details Date Type Department Care Team (Late st Contact Info) Description 09/12/2023 9:44 AM CDT - 09/12/2023 3:41 PM CDT Emergency [facility] Emergency Dept [address] [place] [address] Kassy Rahman MD [facility] [address] [place] [address] Right sided abdominal pain; Upper abdominal pain Discharge Disposition: Home or Self Care Social [...] Mass Index 29.95 09/12/2023 9:35 AM CDT documented in this encounter Discharge Instructions * Discharge Instructions* Kassy Rahman MD - 09/12/2023 3:22 PM CDT You were seen in the emergency department for nausea, vomiting, and belly pain. Your exam and workup was overall reassuring here. The MRI did not show any signs of obstruction or anything retained inthe belly, or any other acute emergencies. Your baby looked good here. I am giving you a prescription for medication called Bentyl that can help with any cramping as wellas a short course of omeprazole to see if this can help with any reflux or gastritis symptoms. I have placed referral for the GI doctors. Please keep your appointment with OB doctors on Tuesday. If you start to have vomiting again and cannot keep anything down, if you have blood Relaxit coffee grounds in your vomit, if you have dark tarry stools or blood in your stools, or severe worsening pain, please come back to the emergency department. documented in this encounter Medications at Time of Discharge Medication Sig Dispensed Refills Start Date End Date dicyclomine (BENTYL) 20 MG tablet Take 1 tablet (20 mg) by mouth 2 times daily for 3 days 6 tablet 09/12/2023 09/15/2023 glycerin (LAXATIVE) 1.[address] 1 suppository rectally daily as needed (constipation) 12 suppository 09/01/2023 hydrOXYzine (ATARAX) 25 MG tablet Take 25 mg by mouth nightly as needed 05/28/2022 omeprazole (PRILOSEC) [address] capsule Take 1 capsule (20 mg) by mouth daily for 7 days 7 capsule 09/12/2023 09/19/2023 Vit-Fe Fumarate-FA ( PLUS) 27-1 MG TABS Take 1 tablet by mouth daily promethazine (PHENERGAN) 25 MG tablet Take 25 mg by mouth every 6 hours as needed for nausea VITAMIN D3 50 MCG (1999 UT) tablet Take 1 tablet by mouth daily documented as of this encounter ED Notes * Kayla Worley RN - 09/12/2023 9:40 AM CDT Pt is 19 weeks , unable to keep anything down. Also c/o constipation, last BM was and it was a very small amount. Pt is tearful, states she was at [facility] yesterday and they didn't help her. Concerned about last of BM's, c/o feeling weak today, too weak to get out of bed. EMS gave 450 ml of NS via IV. Triage Assessment (Adult) Row Name 09/12/23 0937 Triage Assessment Airway WDL WDL Respiratory WDL Respiratory WDL WDL Skin Circulation/Temperature WDL Skin Circulation/Temperature WDL WDL Cardiac WDL Cardiac WDL WDL Peripheral/Neurovascular WDL Peripheral Neurovascular WDL WDL Cognitive/Neuro/Behavioral WDL Cognitive/Neuro/Behavioral WDL WDL * Kayla Worley RN - 09/12/2023 9:40 AM CDT Triage Assessment (Adult) Row Name 09/12/23 0937 Triage Assessment Airway WDL WDL Respiratory WDL Respiratory WDL WDL Skin Circulation/Temperature WDL Skin Circulation/Temperature WDL WDL Cardiac WDL Cardiac WDL WDL Peripheral/Neurovascular WDL Peripheral Neurovascular WDL WDL Cognitive/Neuro/Behavioral WDL Cognitive/Neuro/Behavioral WDL WDL Triage Assessment (Adult) Row Name 09/12/23 0937 Triage Assessment Airway WDL WDL Respiratory WDL Respiratory WDL WDL Skin Circulation/Temperature WDL Skin Circulation/Temperature WDL WDL Cardiac WDL Cardiac WDL WDL Peripheral/Neurovascular WDL Peripheral Neurovascular WDL WDL Cognitive/Neuro/Behavioral WDL Cognitive/Neuro/Behavioral WDL WDL Triage Assessment (Adult) Row Name 09/12/23 0937 Triage Assessment Airway WDL WDL Respiratory WDL Respiratory WDL WDL Skin Circulation/Temperature WDL Skin Circulation/Temperature WDL WDL Cardiac WDL Cardiac WDL WDL Peripheral/Neurovascular WDL Peripheral Neurovascular WDL WDL Cognitive/Neuro/Behavioral WDL Cognitive/Neuro/Behavioral WDL WDL * Kassy Rahman MD - 09/12/2023 9:26 AM CDT Emergency Department Note History of Present Illness Chief Complaint Nausea & Vomiting HPI Alisia Velasquez is a 38 year old female currently 19 weeks who presents to theED for vomiting, abdominal pain, and constipation. Pt reports she has been constipated for the pastthree days. Has had two episodes of NBNB emesis today, reports on Tuesday she had brown and red emesis. She has been passing some gas, as well as small loose stools. Has been taking MiraLAX. She also notes right upper as well as right middle abdominal discomfort and feels that it is more swollen on that side than the other side Patient states that a couple days ago she was swallowing some water and ice, she is concerned that there may have been something in it that is now stuck in her GI tract. She denies any vaginal bleeding, urinary frequency or dysuria. She has not had any sick contacts. She has not had any fever. She actually did have a bowel movement here in the emergency department and showed a picture of this, it was brown appearing without any blood. Independent Historian None Review of External Notes Reviewed ED note from 09/11/23. Patient was seen for constipation. US of fetus showed single living fetus Reviewed ED note from 09/09/23. Patient was seen for abdominal pain. No pancreatitis or common bile duct stone. Sludge present in the gallbladder. Reviewed nurse triage phone call from 09/12/23. Patient called with concerns of vomiting since Tuesday, as well as dehydration and no bowel movement for 3+ days. Past Medical History Medical History and Problem List Migraines Seronegative arthritis Vitamin D deficiency Anxiety Mild major depression Panic disorder IBS Obesity Medications vitamins Promethazine Docusate sodium Metoclopramide Fluoxetine Surgical History Appendectomy Physical Exam Patient Vitals for the past 24 hrs: BP Temp Temp src Pulse Resp SpO2 Height Weight 09/12/23 0935 119/60 98 ??F (36.7 ??C) Temporal 72 20 97 % 1.651 m (5' 5) 81.6 kg (180 lb) Physical Exam General: Overall stable and nontoxic appearing HEENT: Conjunctivae clear, no scleral icterus, mucous membranes moist Neuro: Alert, moving all extremities equally with intention CV: Regular rate and rhythm, radial and DP pulses equal Respiratory: No signs of respiratory distress, lungs clear to auscultation bilaterally Abdomen: Soft, without rigidity or rebound throughout Tenderness to palpation in RUQ/epigastric region no overlying skin changes MSK: No lower extremity swelling or tenderness Diagnostics Lab Results Labs Ordered and Resulted from Time of ED Arrival to Time of ED Departure COMPREHENSIVE METABOLIC PANEL - Abnormal Result Value Sodium 134 (*) Potassium 3.5 Carbon Dioxide (CO2) 19 (*) Anion Gap 13 Urea Nitrogen 2.6 (*) Creatinine 0.53 GFR Estimate >90 Calcium 8.7 (*) Chloride 102 Glucose 90 Alkaline Phosphatase 53 AST 27 ALT 48 Protein Total 6.1 (*) Albumin 3.5 Bilirubin Total 0.8 ROUTINE UA WITH MICROSCOPIC REFLEX TO CULTURE - Abnormal Color Urine Light Yellow Appearance Urine Slightly Cloudy (*) Glucose Urine Negative Bilirubin Urine Negative Ketones Urine 20 (*) Specific [place] Urine 1.011 Blood Urine Negative pH Urine 7.5 (*) Protein Albumin Urine Negative Urobilinogen Urine 2.0 Nitrite Urine Negative Leukocyte Esterase Urine Negative Mucus Urine Present (*) Amorphous Crystals Urine Few (*) RBC Urine <1 WBC Urine <1 Squamous Epithelials Urine <1 CBC WITH PLATELETS AND DIFFERENTIAL - Abnormal WBC Count 9.1 RBC Count 3.69 (*) Hemoglobin 11.1 (*) Hematocrit 33.4 (*) MCV 91 MCH 30.1 MCHC 33.2 RDW 12.6 Platelet Count 181 % Neutrophils 79 % Lymphocytes 12 % Monocytes 8 % Eosinophils 1 % Basophils 0 % Immature Granulocytes 1 NRBCs per 100 WBC 0 Absolute Neutrophils 7.2 Absolute Lymphocytes 1.1 Absolute Monocytes 0.7 Absolute Eosinophils 0.1 Absolute Basophils 0.0 Absolute Immature Granulocytes 0.1 Absolute NRBCs 0.0 LIPASE - Normal Lipase 34 Imaging MR Abdomen w/o Contrast Final Result IMPRESSION: 1. No definite visualized explanation for patient's symptoms. Specifically, no cholelithiasis, acute cholecystitis or biliary obstruction. 2. 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 JESSI BARRERA MD SYSTEM ID: [id number] Independent Interpretation None ED Course Medications Administered Medications sodium chloride 0.9% BOLUS 1,000 mL (1,000 mLs Intravenous $New Bag 09/12/23 1208) acetaminophen (TYLENOL) tablet 1,000 mg (1,000 mg Oral $Given 09/12/23 1209) Procedures Procedures POCUS: -Bedside ultrasound with good movement, heart rate of 148 Discussion of Management None ED Course ED Course as of 09/12/23 1804 TueSep 12, 2023 1047 I obtained history and examined the patient as noted above. 1340 Hemoglobin(!): 11.1 C/w prior 1340 No LFT elevation 1459 Abdominal pain has improved on reassessment. Additional Documentation None Medical Decision Making / Diagnosis [facility] Diagnoses: None MIPS None MDM Alisia Velasquez is a 38 year old female G2, P1 who presents to the emergency department with a chief complaint of constipation, abdominal pain, vomiting. On examination stable nontoxic overall.Patient does have a history of a previous appendectomy, MRI obtained to evaluate for any signs of obstruction as this is her greatest concern as well as any biliary or hepatic pathology. Reassuringly, no transaminitis or alk phos elevation and MRI was negative for any acute findings with exception of some mild hydronephrosis on the left. UA without any signs of blood, she has no CVA tenderness bilaterally, I suspect this is physiologic. No fever or urinary symptoms bacteriuria to suggest either asymptomatic bacteriuria or urinary tract infection. Considered ACS, however patient expresses discomfort in localized area of abdomen and otherwise is low risk, doubt this as explanation. Patient does have antinausea medication at home and was able to tolerate p.o. here in the emergencydepartment without need for antiemetic. Her abdominal pain improved after receiving Tylenol. I discussed with her continuation of MiraLAX at home and trial of Bentyl as well as omeprazole. I have placed a GI referral as it appears that throughout this she has had significant abdominal pain with negative workup, potentially this could be due from something such as peptic ulcer disease however no signs at this time of emergent scope given no hematemesis, no melena or BRPBR. Patient has rescheduled her OB appointment for Tuesday. We discussed strict return precautions for return to the emergency department. Patient was comfortable with the plan to go home. Discharged in stable condition. Disposition The patient was discharged. Diagnosis ICD-10-CM 1. Right sided abdominal pain R10.9 Adult GI Public Employment Mediator Referral - Consult Only 2. Upper abdominal pain R10.10 Adult GI Public Employment Mediator Referral - Consult Only Discharge Medications New Prescriptions No medications on file Scribe Disclosure: Darvin Kaba, am serving as a scribe at 10:48 AM on 09/12/2023 to document services personally performed by Kassy Rahman MD based on my observations and the provider's statements to me. Kassy Rahman MD 09/12/231804 Kassy Rahman MD 09/12/231805 documented in this encounter Plan of Treatment Scheduled Referrals Name Type Priority Associated Diagnoses Orde r Schedule Adult GI Public Employment Mediator Referral - Consult Only Referral Priority: 1-2 Weeks Right sided abdominal pain Upper abdominal pain Expected: 09/12/2023 (Approximate), Expires: 09/11/2024 documented as of this encounter Procedures Procedure Name Priority Date/Time Associated Diagnosis Comments MR ABDOMEN W/O CONTRAST STAT 09/12/2023 2:51 PM CDT CBC WITH PLATELETS AND DIFFERENTIAL STAT 09/12/2023 12:03 PM CDT ROUTINE UA WITH MICROSCOPIC REFLEX TO CULTURE STAT 09/12/2023 12:03 PM CDT CBC WITH PLATELETS & DIFFERENTIAL STAT 09/12/2023 12:03 PM CDT LIPASE STAT 09/12/2023 12:03 PM CDT COMPREHENSIVE METABOLIC PANEL STAT 09/12/2023 12:03 PM CDT documented in this encounter Results * MR Abdomen w/o Contrast (09/12/2023 2:51 PM CDT) Anatomical Region Laterality Modality Abdomen/Pelvis, SUBRAD MR BODY, UMP MR BODY, RAD MR Magnetic Resonance Impressions 09/12/2023 3:03 PM CDT IMPRESSION: 1. ??No definite visualized explanation for patient's symptoms. Specifically, no cholelithiasis, acute cholecystitis or biliary obstruction. 2. 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 JESSI BARRERA MD SYSTEM ID: [id number] Narrative 09/12/2023 3:03 PM CDT MR ABDOMEN [...] gravid uterus. JESSI BARRERA MD SYSTEM ID: [id number] Kassy Syed MD [facility] [place] ORDER[place]LES * (ABNORMAL) CBC with platelets and differential (09/12/2023 12:03 PM CDT) WBC Count 9.1 4.0 - 11.0 10e3/uL [...] Syed MD LAB - BLOOD ORDERABL ES [facility] [address] Lab (1st floor, no room number) [address] [place] [address] * Lipase (09/12/2023 12:03 PM CDT) Lipase 34 13 - 60 U/L 09/12/2023 12:29 PM CDT LABORATORY Blood BLOOD SPECIMEN / Unknown Venipuncture / Unknown 09/12/2023 12:03 PM CDT 09/12/2023 12:10 PM CDT Kassy Syed MD LAB - BLOOD ORDERABL ES [facility] [address] Lab (1st floor, no room number) [address] * (ABNORMAL) UA with Microscopic reflex to Culture (09/12/2023 12:03 PM CDT) Color Urine Light Yellow Colorless, Straw, Light Yellow, Yellow 09/12/2023 12:24 PM CDT LABORATORY Appearance Urine Slightly Cloudy(A) Clear 09/12/2023 12:24 PM CDT LABORATORY Glucose Urine Negative Negative mg/dL 09/12/2023 12:24 PM CDT LABORATORY Bilirubin Urine Negative Negative 12:24 PM CDT LABORATORY Ketones Urine 20(A) Negative mg/dL 09/12/2023 12:24 PM CDT LABORATORY Specific [place] Urine 1.011 1.003 - 1.035 09/12/2023 12:24 [...] MD LAB - URINE ORDERABL ES LABORATORY [facility] [address] [facility] Lab (1st floor, no room number) [place] [address], [facility] * (ABNORMAL) Comprehensive metabolic panel (09/12/2023 12:03 PM CDT) Sodium 134(L) 135 - 145 mmol/L 09/12/2023 [...] calculated usin g 2020 CKD-EPI equation. Calcium 8.7(L) 8.8 - [...] PM CDT 09/12/2023 12:10 PM CDT Kassy ySed MD LAB - BLOOD ORDERABL ES [facility] LABORATORY [facility] [address] [facility] ([facility]st [facility], no room number) [place] [address] documented in this encounter Visit Diagnoses Diagnosis Right sided abdominal pain Abdominal pain, unspecified site Upper abdominal pain Abdominal pain, other specified site documented in this encounter Administered Medications Inactive Administered Medications - up to 3 most recent administrations Medication Order MAR Action Action Date Dose Rate Site acetaminophen (TYLENOL) tablet 1,000 mg 1,000 mg, Oral, ONCE, On Tue09/12/23 at 1155, For 1 dose, Maximum acetaminophen dose from all sources = 75 mg/kg/day not to exceed 4 gram $Given 09/12/2023 12:09 PM CDT 1,000 mg sodium chloride 0.9% BOLUS 1,000 mL Intravenous, 1,000 mL, ONCE, at 1,000 mL/hr, Administer over 1 Hours, On Tue09/12/23 at 1155, For 1 dose $New Bag 09/12/2023 12:08 PM CDT 1,000 mLs 1000 mL/hr documented in this encounter Active and Recently Administered Medications Times are shown in CDT. Scheduled Medication Order 09/10/2023 09/11/2023 09/12/2023 acetaminophen (TYLENOL) tablet 1,000 mg (COMPLETED) 1,000 mg, Oral, ONCE, On Tue09/12/23 at 1155, For 1 dose, Maximum acetaminophen dose from all sources = 75 mg/kg/day not to exceed 4 gram 1209 ($Given - Provi piter: Brianda Trejo RN) sodium chloride 0.9% BOLUS 1,000 mL (COMPLETED) Intravenous, 1,000 mL, ONCE, at 1,000 mL/hr, Administer over 1 Hours, On 09/12/23 at 1155, For 1 dose 1208 ($New Bag - Pro vider: Brianda Trejo, [id number] (Stopped - Provider: Aleida Davis RN) documented in this encounter Additional Health Concerns Assessment Noted Time PHQ-9 Depression Total Score: 6 02/07/20 21 8:10 AM OPEN HEARTH HELPER documented as of this encounter Care Teams Teen Counselor Relationship Specialty Start Date End Date Clinic, [facility] [address] [place] [address] PCP - General 03/02/20 Mary Kate Herrera PA-C [address] [place] [address] Assigned PCP 02/15/21 Randal Joe MD [facility] [address] [place] [address] 07/20/22 documented as of this encounter
--- OUTSIDE RECORDS SUMMARY | 2023-09-13 00:36 | XMS_ITS | Encounter Summary ---
Author Organization [place] Address [address] [facility] [place] [address] Care Team Providers Care Mechanical Process Engineer Name Role Phone [facility], [facility] Primary Care Pro vider Mary Kate Herrera PA-C Unavailable Randal Joe MD Unavailable [phone] Encounter Details Date Type Department Care Team [...] Total Score: 6 02/07/20 21 8:10 AM ORGANIC LAB WORKER documented as of this encounter Care Teams Mechanical Process Engineer Relationship Specialty Start Date End Date [facility], [facility] [address] [place], [place] [phone] PCP - General 03/02/20 Mary Kate Herrera PA-C [address] [place] [address] Assigned PCP 02/15/21 Randal Joe MD [facility] [address] [place] [address] 07/20/22 documented as of this encounter
--- OUTSIDE RECORDS SUMMARY | 2023-09-13 00:36 | XMS_ITS | Encounter Summary ---
Author Organization [place] Address [address] [facility] [place] [address] Care Team Providers Care American Sign Language Interpreter Name Role Phone [facility], [facility] Primary Care Pro vider Mary Kate Herrera PA-C Unavailable Randal Joe MD Unavailable [phone] Encounter Details Date Type Department Care Team [...] Total Score: 6 02/07/20 21 8:10 AM OFFSET PRESS OPERATOR APPRENTICE documented as of this encounter Care Teams American Sign Language Interpreter Relationship Specialty Start Date End Date [facility], [facility] [address] [place], [place] [phone] PCP - General 03/02/20 Mary Kate Herrera PA-C [address] [place] [address] Assigned PCP 02/15/21 Randal Joe MD [facility] [address] [place] [address] 07/20/22 documented as of this encounter
--- OUTSIDE RECORDS SUMMARY | 2023-09-13 00:36 | XMS_ITS | Encounter Summary ---
Author Organization [place] Address [address] [facility] [place] [address] Care Team Providers Care Glove Maker Name Role Phone [facility], [facility] Primary Care Pro vider Mary Kate Herrera PA-C Unavailable Randal Joe MD Unavailable Reason for Visit * Reason Comments Abdominal Pain Constipation Encounter Details Date Type Department Care Team (Late st Contact Info) Description 07/16/2023 11:43 PM CDT - 07/17/2023 1:40 AM T [facility] Emergency Dept [address] [place] [address] Louie Allen MD [facility] [address] [place] [address] Constipation, unspecified constipation type Discharge Disposition: Home [...] be sent through Care Everywhere. * Constipation (Wallisian) documented in this encounter Medications at Time [...] CDT Pt given AVS and instructions by keno writer / runner- pt agreeable to all. Pt has no [...] PM CDT History Chief Complaint: Constipation HPI Aliisa Velasquez is a 38 year old female [...] Range Lipase 43 13 - 60 U/L [place] Draw Status: None Narrative The following orders were created for panel order [place]. Procedure Abnormality Status --------- ------ Extra Blue Top Tube[[id number]] Final result Extra Red Top Tube[[id number]] Final result Please view results for these tests on the individual orders. UA with Microscopic reflex to Culture Status: Abnormal Specimen: Urine, Midstream Result Value Ref Range Color Urine Straw Colorless, Straw, Light Yellow, Yellow Appearance Urine Clear Clear Glucose Urine Negative Negative mg/dL Bilirubin Urine Negative Negative Ketones Urine Negative Negative mg/dL Specific [place] Urine 1.009 1.003 - 1.035 Blood Urine [...] Status --------- ------ CBC with platelets and d...[[id number]] Abnormal Final result Please view results for [...] increase water intake. Plan primary care versus ENERGY AND CONSERVATION TECHNICIAN follow-up in 3 to 5 days for [...] mg/dL 07/17/2023 12:51 AM CDT LABORATORY Specific [place] Urine 1.009 1.003 - 1.035 07/17/2023 12:51 [...] Allen MD LAB - URINE ORDER JOHN [facility] [address] Lab (1st floor, no room number) [place] [id number] [place] [address] * Extra Red Top Tube (07/16/2023 11:34 PM CDT) Hold Specimen [facility] 07/17/2023 12:46 AM CDT LABORATORY Blood STRUCTURE OF LEFT UPPER LIMB / Unknown Venipuncture / Unknown 07/16/2023 11:34 PM CDT 07/16/2023 11:41 PM CDT Louie Allen MD LAB - BLOOD ORDER JOHN Performing Organization Address City/[facility]/ZIP Co de Phone Number [facility] [address] Lab (1st floor, no room number) [place] [phone] [place] [address] * Extra Blue Top Tube (07/16/2023 11:34 PM CDT) Hold Specimen [facility] 07/17/2023 12:46 AM CDT LABORATORY Blood STRUCTURE OF LEFT UPPER LIMB / Unknown Venipuncture / Unknown 07/16/2023 11:34 PM CDT 07/16/2023 11:41 PM CDT Louie Allen MD LAB - BLOOD ORDER JOHN [facility] [address] Lab (1st floor, no room number) [place] [phone] [place] [address] * (ABNORMAL) CBC with platelets and differential [...] Allen MD LAB - BLOOD ORDER JOHN [facility] [address] Lab (1st floor, no room number) [address] * Lipase (07/16/2023 11:34 PM CDT) Lipase 43 13 - 60 U/L 07/17/2023 12:01 AM CDT RH LABORATORY Blood STRUCTURE OF LEFT UPPER LIMB / Unknown Venipuncture / Unknown 07/16/2023 11:34 PM CDT 07/16/2023 11:41 PM CDT Louie Allen MD LAB - BLOOD ORDER JOHN [facility] [address] Lab (1st floor, no room number) [address] * (ABNORMAL) Comprehensive metabolic panel (07/16/2023 [...] MD LAB - BLOOD ORDER JOHN LABORATORY [facility] Acute Care Lab [address] [facility] Lab (1st floor, no room number) [place] [address] documented in this encounter Visit Diagnoses Diagnosis Constipation, unspecified constipation type documented in this encounter Administered Medications Inactive Administered Medications - up to 3 most recent administrations Medication Order MAR Action Action Date Dose Rate Site Enema Compound (docusate/mineral oil/NaPhos) NO MAG CIT PREMIX 226 mL, Rectal, ONCE, On 07/17/23 at 0020, For 1 dose, mag citrate not included due to ignition expert recall. $Given 07/17/2023 12:29 AM CDT 226 mLs documented in this encounter Active and Recently Administered Medications Times are shown in CDT. Scheduled Medication Order 07/15/2023 07/16/2023 07/17/2023 Enema Compound (docusate/mineral oil/NaPhos) NO MAG CIT PREMIX (COMPLETED) 226 mL, Rectal, ONCE, On 07/17/23 at 0020, For 1 dose, mag citrate not included due to ignition expert recall. 0029 ($Given - Provi piter: Nilam Silvestre RN) documented in this encounter Additional Health Concerns Assessment Noted Time PHQ-9 Depression Total Score: 6 02/07/20 21 8:10 AM WATCH AND CLOCK REPAIR CLERK documented as of this encounter Care Teams Glove Maker Relationship Specialty Start Date End Date Clinic, [facility] [address] [place] [address] PCP - General 03/02/20 Mary Kate Herrera PA-C [address] [place] [address] Assigned PCP 02/15/21 Randal Joe MD [facility] [address] [place] [address] 07/20/22 documented as of this encounter
--- OUTSIDE RECORDS SUMMARY | 2023-09-13 00:36 | XMS_ITS | Encounter Summary ---
Author Organization [place] Address [address] [facility] [place] [address] Care Team Providers Care Bottle Cleaner Name Role Phone [facility], [facility] Primary Care Pro vider Mary Kate Herrera PA-C Unavailable Randal Joe MD Unavailable [phone] Encounter Details Date Type Department Care Team [...] Total Score: 6 02/07/20 21 8:10 AM NETWORK SECURITY ENGINEER documented as of this encounter Care Teams Bottle Cleaner Relationship Specialty Start Date End Date [facility], [facility] [address] [place], [place] [phone] PCP - General 03/02/20 Mary Kate Herrera PA-C [address] [place] [address] Assigned PCP 02/15/21 Randal Joe MD [facility] [address] [place] [address] 07/20/22 documented as of this encounter
--- OUTSIDE RECORDS SUMMARY | 2023-09-13 00:36 | XMS_ITS | Encounter Summary ---
Author Organization [place] Address [address] [facility] [place] [address] Care Team Providers Care Lead Sewage Plant Operator Name Role Phone [facility], [facility] Primary Care Pro vider Mary Kate Herrera PA-C Unavailable Randal Joe MD Unavailable [phone] Reason for Visit * Reason Comments Fecal Impaction Encounter Details Date Type Department Care Team (Late st Contact Info) Description 08/22/2023 11:10 AM CDT - 08/22/2023 1:57 PM T Emergency [facility] Emergency Dept [address] [place] [address] Mai Headley, PAJohnC [facility] [address] [place] [address] Constipation during in second trimester; UTI in [...] day. You may also use Colace or xpmw-xzw-vemyszs suppositories or Fleet enemas at home. Return to the ED should you develop abdominal pain, vaginal bleeding, fevers, persistent vomiting, or further emergent concerns. Otherwise, follow-up with your PETROPHYSICAL ENGINEER later this week to reassess urine and [...] be sent through Care Everywhere. * Constipation (Maldivian) documented in this encounter Medications at Time [...] talked to OB who recommended she try zzis-daf-bksmxyu suppositories orenemas, however she opted to come [...] of External Notes I reviewed her her sheep rancher note with [place] [facility] 08/15/2023. Feels anxious regarding thepregnancy. [...] Bilirubin Urine Negative Ketones Urine Negative Specific [place] Urine 1.026 Blood Urine Negative pH Urine [...] Documentation None Medical Decision Making / Diagnosis [facility] Diagnoses: None MIPS None MDM Alisia [...] she attributed just to her . Her PETROPHYSICAL ENGINEER had previously prescribed Macrobid, but the patient did not take anyof these pills, as she left the melts in her car. We will initiate Macrobid yet again today given new findings of UA. I recommend close follow-up with her PETROPHYSICAL ENGINEER later this week for further assessment and [...] PA-C LAB - BLOOD [place] LABORAT[facility] Acute Care Lab [address] [facility] Lab (1st floor, no room number) [place] [address] * (ABNORMAL) Comprehensive metabolic panel [...] PA-C LAB - BLOOD [place] [facility] Acute Care Lab [address] [facility] Lab (1st floor, no room number) [place] [address], [facility] * (ABNORMAL) UA with [...] mg/dL 08/22/2023 11:56 AM CDT LABORATORY Specific [place] Urine 1.026 1.003 - 1.035 08/22/2023 11:56 [...] PA-C LAB - URINE [place] Acute Care Lab [address] [facility] Lab (1st floor, no room number) [place] [address], [facility] documented in this encounter [...] dose, mag citrate not included due to field services director recall. $Given 08/22/2023 12:36 PM CDT 226 mLs documented in this encounter Active and Recently Administered Medications Times are shown in CDT. Scheduled Medication Order 08/20/2023 08/21/2023 08/22/2023 Enema Compound (docusate/mineral oil/NaPhos) NO MAG CIT PREMIX (COMPLETED) 226 mL, Rectal, ONCE, On Tue08/22/23 at 1125, For 1 dose, mag citrate not included due to field services director recall. 1236 ($Given - Provi piter: Oswald Hankins RN) documented in this encounter Additional Health Concerns Assessment Noted Time PHQ-9 Depression Total Score: 6 02/07/20 21 8:10 AM WEB PAGE DESIGNER documented as of this encounter Care Teams Lead Sewage Plant Operator Relationship Specialty Start Date End Date [facility] [address] [place] [address] PCP - General 03/02/20 Mary Kate Herrera PA-C [address] [place] [address] Assigned PCP 02/15/21 Randal Joe MD [facility] [address] [place] [address] 07/20/22 documented as of this encounter
--- OUTSIDE RECORDS SUMMARY | 2023-09-13 00:36 | XMS_ITS | Encounter Summary ---
Author Organization [place] Address [address] [facility] [place] [address] Care Team Providers Care Front Desk Manager Name Role Phone [facility], [facility] Primary Care Pro vider Mary Kate Herrera PA-C Unavailable Randal Joe MD Unavailable [phone] Reason for Visit * Reason Comments Abdominal Pain Weight Loss Encounter Details Date Type Department Care Team (Late st Contact Info) Description 08/30/2023 4:10 PM CDT - 08/30/2023 7:45 PM CDT Emergency [facility] Emergency Dept [address] [place] [address] Phyllis Walden, PA-C [facility] [address] [place] [address] Abdominal pain during in second trimester; Hemorrhagic [...] 7:19 PM CDT Follow up with your SUGAR TRUCKER this week for reevaluation Return to ED for any new or worsening symptoms * Attachments The following attachments cannot be sent through Care Everywhere. * : Abdominal Pain ([place]ayman Islander) * Gastritis ([place]ay[place] Islander) documented in this encounter Medications at [...] days and today has felt less movement. [place] weak in bathroom from pain today. Denies [...] Urine Negative Ketones Urine Trace (*) Specific [place] Urine 1.014 Blood Urine Negative pH Urine [...] Documentation None Medical Decision Making / Diagnosis [facility] Diagnoses: None MIPS None MDM Alisia [...] She was advised to follow-up with her SUGAR TRUCKER for reevaluation as soon as she is [...] CDT EXAM: MR ABDOMEN W/O CONTRAST LOCATION: [facility] DATE: 08/30/2023 INDICATION: Eval of LUQ abdominal [...] 08/30/2023 EXAM: MR ABDOMEN W/O CONTRAST LOCATION: [facility] DATE: 08/30/2023 INDICATION: Eval of LUQ abdominal [...] OB LIMITED >14 WEEKS WO MEASUREMENT LOCATION: [facility] DATE: 08/30/2023 INDICATION: Evaluation of lower abdominal [...] OB LIMITED >14 WEEKS WO MEASUREMENT LOCATION: [facility] DATE: 08/30/2023 INDICATION: Evaluation of lower abdominal pain, dec movement, [id number] weeks COMPARISON: Ultrasound 07/05/2023 TECHNIQUE: Transabdominal and [...] 08/30/2023 2:40 PM CDT RH LABORATORY Specific [place] Urine 1.014 1.003 - 1.035 08/30/2023 2:40 [...] Walden PA-C LAB - URINE ORD ERABLES [facility] Care Lab [address] Lab (1st floor, no room number) [place] [phone], [facility] * Lipase (08/30/2023 2:12 PM CDT) Lipase 33 13 - 60 U/L 08/30/2023 4:53 PM CDT LABORATORY Blood STRUCTURE OF LEFT UPPER LIMB / Unknown Venipuncture / Unknown 08/30/2023 2:12 PM CDT 08/30/2023 2:27 PM CDT Phyllis Walden PA-C LAB - BLOOD ORD ERABLES Performing Organization Address City/[facility]/ZIP Co de Phone Number [facility] Lab [address] Lab (1st floor, no room number) [place] [address], [facility] * Extra Red Top Tube (08/30/2023 2:12 PM CDT) Hold Specimen [facility] 08/30/2023 3:31 PM CDT LABORATORY Blood STRUCTURE OF LEFT UPPER LIMB / Unknown Venipuncture / Unknown 08/30/2023 2:12 PM CDT 08/30/2023 2:29 PM CDT Phyllis Walden PA-C LAB - BLOOD ORD ERABLES [facility] Care Lab [address] Lab (1st floor, no room number) [place] [address], [place] * Extra Blue Top Tube (08/30/2023 2:12 PM CDT) Hold Specimen JI 08/30/2023 3:31 PM CDT RH LABORATORY Blood STRUCTURE OF LEFT UPPER LIMB / Unknown Venipuncture / Unknown 08/30/2023 2:12 PM CDT 08/30/2023 2:29 PM CDT Phyllis Walden PA-C LAB - BLOOD ORD ERABLES RH LABORATORY [facility] Acute Care Lab [address] [facility] Lab (1st floor, no room number) [place] [address], [facility] * CBC with platelets and differential (08/30/2023 [...] LAB - BLOOD ORD ERABLES RH LABORATORY [facility] Acute Care Lab [address] [facility] ([facility]st floor, no room number) [place] [address], [facility] * (ABNORMAL) Comprehensive metabolic panel (08/30/2023 2:12 [...] Walden PA-C LAB - BLOOD ORD ERABLES [facility] Acute Care Lab [address] [facility] Lab (1st floor, no room number) [place] [address], [facility] documented in this encounter Visit Diagnoses Diagnosis Abdominal pain during in second trimester Hemorrhagic cyst of left ovary documented in this encounter Additional Health Concerns Assessment Noted Time PHQ-9 Depression Total Score: 6 02/07/20 21 8:10 AM DISPENSING AUDIOLOGIST documented as of this encounter Care Teams Front Desk Manager Relationship Specialty Start Date End Date Clinic, [facility] [address] [place] [address] PCP - General 03/02/20 Mary Kate Herrera PA-C [address] [place] [address] Assigned PCP 02/15/21 Randal Joe MD [facility] [address] [place] [address] 07/20/22 documented as of this encounter
--- OUTSIDE RECORDS SUMMARY | 2023-09-13 00:36 | XMS_ITS | Encounter Summary ---
Author Organization [place] Address [address] [facility] [address] Care Team Providers Care Electrician Underground Name Role Phone [facility], [facility] Primary Care Pro vider Mary Kate Herrera PA-C Unavailable Randal Joe MD Unavailable [phone] Encounter Details Date Type Department Care Team [...] Total Score: 6 02/07/20 21 8:10 AM HONING MACHINE SET UP OPERATOR TOOL documented as of this encounter Care Teams Electrician Underground Relationship Specialty Start Date End Date [facility], [facility] [address] [place], [place] [phone] PCP - General 03/02/20 Mary Kate Herrera PA-C [address] [place] [address] Assigned PCP 02/15/21 Randal Joe MD [facility] [address] [place] [address] 07/20/22 documented as of this encounter
--- OUTSIDE RECORDS SUMMARY | 2023-09-13 00:36 | XMS_ITS | Encounter Summary ---
Author Organization [place] Address [address] [facility] [place] [address] Care Team Providers Care Radio Journalist Name Role Phone [facility], [facility] Primary Care Pro vider Mary Kate Herrera PA-C Unavailable Randal Joe MD Unavailable [phone] Reason for Visit * Reason Comments Nausea & Vomiting Abdominal Pain Encounter Details Date Type Department Care Team (Late st Contact Info) Description 07/18/2023 5:21 AM CDT - 07/18/2023 9:08 AM CDT Emergency [facility] Emergency Dept [address] [place] [address] Kendall Omalley MD [facility] [address] [place] [address] Nausea and vomiting during Discharge Disposition: Home [...] 8:43 AM CDT Please follow-up with your BENCH INSPECTOR. Call them and tell them that you are in the emergency department. Please start taking Pepcid 2 times a day. Continue taking your antiemetic. If symptoms worsen: If you have uncontrolled vomiting, abdominal pain, vaginal bleeding please return to the emergency department. * Attachments The following attachments cannot be sent through Care Everywhere. * : Morning Sickness (Israeli) documented in this encounter Medications at Time [...] ED Course Medical Decision Making / Diagnosis [facility] Diagnoses: None MIPS None [facility] Alisia Velasquez is a 38 year [...] for Pepcid. Instructed to follow-up with her BENCH INSPECTOR. Discussed importance of drinking fluids. Return precautions [...] Leonid Kaba, am serving as a scribe ict trainer at 7:12 AM on 07/18/2023 to document servicespersonally performed by Kendall Omalley MD based on my observations and the provider's statements to me. 07/18/2023 [facility] EMERGENCY DEPT Kendall Omalley MD 07/18/23 1038 [...] Salazar PA-C LAB - BLOOD ORDERABLES LABORATORY [facility] Acute Care Lab [address] [facility] Lab (1st floor, no room number) [place] [address] * CBC with platelets and differential (07/18/2023 [...] Salazar PA-C LAB - BLOOD ORDERABLES LABORATORY [facility] Acute Care Lab [address] Lab (1st floor, no room number) [place] [address], [facility] * (ABNORMAL) Comprehensive metabolic panel (07/18/2023 6:42 AM CDT) [facility] Signature Sodium 134(L) 135 - 145 mmol/L [...] PA-C LAB - BLOOD ORDERABLES RH LABORATORY [facility] Acute Care Lab [address] [facility] Lab (1st floor, no room number) [place] [address], [facility] documented in this encounter Visit Diagnoses [...] Total Score: 6 02/07/20 21 8:10 AM INFORMATION SYSTEMS AUDITOR documented as of this encounter Care Teams Radio Journalist Relationship Specialty Start Date End Date [facility], [facility] [address] [place] [address] PCP - General 03/02/20 Mary Kate Herrera PA-C [address] [place] [address] Assigned PCP 02/15/21 Randal Joe MD [facility] [address] [place] [address] 07/20/22 documented as of this encounter
--- OUTSIDE RECORDS SUMMARY | 2023-09-13 00:36 | XMS_ITS | Encounter Summary ---
Author Organization [place] Address [address] [facility] [place] [address] Care Team Providers Care Ice Delivery Driver Name Role Phone [facility], [facility] Primary Care Pro vider Mary Kate Herrera PA-C Unavailable Randal Joe MD Unavailable Reason for Visit * Reason Comments Constipation Abdominal Pain Encounter Details Date Type Department Care Team (Late st Contact Info) Description 09/01/2023 10:08 PM CDT - 09/01/2023 11:48 PM CDT Emergency [facility] Emergency Dept [address] [place] [address] Tricia Gregg, DO [facility] [address] [place] [address] Constipation, unspecified constipation type; Abdominal pain, unspecified [...] sent through Care Everywhere. * Abdominal Pain (Guyanese) * Constipation (Guyanese) documented in this encounter Medications at Time [...] for 10 days 20 tablet 09/01/2023 09/11/[address] 1 enema rectally [...] ABC intact Triage Assessment (Adult) Row Name 09/01/23 Triage Assessment Airway WDL WDL Respiratory WDL [...] Urine Negative Ketones Urine Trace (*) Specific [place] Urine 1.032 Blood Urine Large (*) pH [...] Documentation None Medical Decision Making / Diagnosis [facility] Diagnoses: None MIPS None [facility] Alisia Velasquez is a 38 year old female presenting in second trimester with abdominal pain and constipation. She is nontoxic, in no significant distress on arrival. Patient was cleared by MERCHANDISE SUPERVISOR team prior to arrival to the ED. [...] mg/dL 09/01/2023 11:30 PM CDT LABORATORY Specific [place] Urine 1.032 1.003 - 1.035 09/01/2023 11:30 [...] LAB - URINE ORDERA BLES RH LABORATORY [facility] Acute Care Lab [address] Lab (1st floor, no room number) [place] [address] * (ABNORMAL) CBC with platelets and [...] LAB - BLOOD ORDERA BLES RH LABORATORY [facility] Acute Care Lab [address] Lab (1st floor, no room number) [place] [address], [facility] * Lipase (09/01/2023 10:23 PM CDT) Lipase 31 13 - 60 U/L 09/01/2023 10:48 PM CDT RH LABORATORY Blood BLOOD SPECIMEN / Unknown Venipuncture / Unknown 09/01/2023 10:23 PM CDT 09/01/2023 10:26 PM CDT Tricia Gregg DO LAB - BLOOD ORDERA BLES RH LABORATORY [facility] Acute Care Lab [address] Lab (1st floor, no room number) [place] [address], [facility] * (ABNORMAL) Comprehensive metabolic panel (09/01/2023 10:23 [...] - BLOOD ORDERA BLES Performing Organization Address City/State/[facility] Co de Phone Number RH LABORATORY [facility] Acute Care Lab [address] Lab (1st floor, no room number) [place] [address], [facility] documented in this encounter Visit Diagnoses [...] Total Score: 6 02/07/20 21 8:10 AM AIR DUCT MECHANIC documented as of this encounter Care Teams Ice Delivery Driver Relationship Specialty Start Date End Date Clinic, [facility] [address] [place] [address] PCP - General 03/02/20 Mary Kate Herrera PA-C [address] [place] [address] Assigned PCP 02/15/21 Randal Joe MD [facility] [address] [place] [address] 07/20/22 documented as of this encounter
--- OUTSIDE RECORDS SUMMARY | 2023-09-13 00:36 | XMS_ITS | Encounter Summary ---
Author Organization [place] Address [address] [facility] [place] [address] Care Team Providers Care Bag Loader Machine Operator Name Role Phone Clinic, [facility] Primary Care Pro vider Mary Kate Herrera PA-C Unavailable Randal Joe MD Unavailable [phone] Reason for Visit * Reason Comments Rectal Bleeding Encounter Details Date Type Department Care Team (Late st Contact Info) Description 08/28/2023 4:36 AM CDT - 08/28/2023 6:35 AM T [facility] Emergency Dept [address] [place] [address] Tricia Gregg DO [facility] [address] [place] [address] Domingo Epstein MD [facility] [address] [place], [place] [id number] Abdominal pain during , antepartum Discharge Disposition: [...] mL (1,000 mLs Intravenous $New Bag 08/28/23 5776) Procedures Procedures Discussion of Management None ED Course Optional/Additional Documentation None Medical Decision Making / Diagnosis [facility] Diagnoses: and None MIPS None [facility] Alisia Velasquez is a 38 year [...] blood stool (08/28/2023 5:19 AM CDT) Pathologist [facility] Occult Blood Negative Negative [facility] 08/28/2023 5:25 AM CDT [facility] Stool RECTAL CONTENTS / Unknown Non-blood Collection / Unknown 08/28/2023 5:19 AM CDT 08/28/2023 5:22 AM CDT Tricia Gregg DO LAB - STOOLS ORDER JOHN [facility] Care Lab [address] Lab (1st floor, no room number) [address] * Extra Red Top Tube (08/28/2023 4:35 AM CDT) Hold Specimen [facility] 08/28/2023 5:46 AM CDT [facility] Blood STRUCTURE OF LEFT UPPER LIMB / Unknown Venipuncture / Unknown 08/28/2023 4:35 AM CDT 08/28/2023 4:43 AM CDT Tricia Gregg DO LAB - BLOOD ORDERA BLES Performing Organization Address City/[facility]/ZIP Co de Phone Number [facility] Lab [address] Lab (1st floor, no room number) [address] * Extra Blue Top Tube (08/28/2023 4:35 AM CDT) Hold Specimen [facility] 08/28/2023 5:46 AM CDT [facility] Blood STRUCTURE OF LEFT UPPER LIMB / Unknown Venipuncture / Unknown 08/28/2023 4:35 AM CDT 08/28/2023 4:43 AM CDT Tricia Gregg DO LAB - BLOOD ORDERA BLES [facility] Care Lab [address] Lab (1st floor, no room number) [address] * CBC with platelets and differential [...] LAB - BLOOD ORDERA BLES RH LABORATORY [facility] Lab [address] Lab (1st floor, no room number) [place] [address], [facility] * (ABNORMAL) Comprehensive metabolic panel (08/28/2023 4:35 [...] DO LAB - BLOOD ORDERA BLES LABORATORY [facility] [address] [facility] Lab (1st floor, no room number) [place] [address] documented in [...] Total Score: 6 02/07/20 21 8:10 AM TRAILER DRIVER documented as of this encounter Care Teams Bag Loader Machine Operator Relationship Specialty Start Date End Date Clinic, [facility] [address] [place] [address] PCP - General 03/02/20 Mary Kate Herrera PA-C [address] [place] [address] Assigned PCP 02/15/21 Randal Joe MD [facility] [address] [place] [address] 07/20/22 documented as of this encounter
--- OUTSIDE RECORDS SUMMARY | 2023-09-13 00:36 | XMS_ITS | Encounter Summary ---
Author Organization [place] Address [address] [facility] 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
--- OUTSIDE RECORDS SUMMARY | 2023-09-13 00:36 | XMS_ITS | Encounter Summary ---
Author Organization [place] Address [address] [facility] [place] [address] Care Team Providers Care Nursing Service Director Name Role Phone [facility], [facility] Primary Care Pro vider Mary Kate Herrera PA-C Unavailable Randal Joe MD Unavailable Encounter Details Date Type Department Care Team (Latest Contact Info) Description 09/09/2023 12:57 PM CDT - 09/09/2023 1:40 PM CDT Hospital Encounter [facility] [address] [place] [address] Brianda Fraser MD [facility] [address] [address] Annika Kirkland MD [facility] [address] [address] Discharge Disposition: Home or Self Care Social [...] Sign Reading Time Taken Comments Blood Pressure 106/59 09/09/2023 1:00 PM CDT Pulse - - Temperature 36.9 ??C (98.4 ??F) 09/09/2023 1:00 PM CD T Respiratory Rate - - Oxygen Saturation - - Inhaled Oxygen Concentration - - Weight - - Height - - Body Mass Index - - documented in this encounter Medications at Time [...] 09/01/2023 09/11/2023 documented as of this encounter Miscellaneous Notes * Provider Notification - Yelena Larson RN - 09/09/2023 1:40 PM CDT 1310- Dr. Fraser updated regarding admission note. Plan per provider: Obtain heart rate perDoptone, start IV and transfer to ED. 1330- LR infusing, FHR per Drew 147, transferred to ED with IV infusing. * Provider Notification - Yelena Larson RN - 09/09/2023 1:08 PM CDT Data: [facility] presented to [facility]: 09/09/2023 12:57 PM. Reason for maternal/ assessment is upper abdominal pain. Patient reports upper mid abdominal pain, pain is a stabbing pain, feels like something is twisting in there, rates pain at 8. Unable to eat or drink, states urine looks like apple juice. Upper abdomen tender to touch. Complains of constipation. Patient is a . record reviewed. History of demise. Gestational Age 18w6d. VSS.. Patient denies leaking of vaginal fluid/rupture of membranes, vaginal bleeding, headache, visual disturbances, significant edema. Support person is present. Action: Verbal consent for EFM. Triage assessment completed. Bill of rights reviewed. Response: Patient verbalized agreement with plan. Will contact Dr Brianda Fraser with update and for further orders. documented in this encounter Plan of Treatment Not on file documented as of this encounter Visit Diagnoses Not on filedocumented in this encounter Administered Medications Inactive Administered Medications - up to 3 most recent administrations Medication Order MAR Action Action Date Dose Rate Site lactated ringers BOLUS 1,000 mL Intravenous, 1,000 mL, ONCE, On Tue09/09/23 at 1330, For 1 dose $New Bag 09/09/2023 1:31 PM CDT 1,000 mLs lidocaine (LMX4) cream Topical, EVERY 1 HOUR PRN, pain, with VAD insertion, Starting on Tue09/09/23 at 1316, Apply at least 30 minutes prior to [...] mild pain with VAD insertion, Starting on Tue09/09/23 at 1316, MAX dose 1 mL subcutaneous OR intradermal along the side of the vein in divided doses as needed for VAD insertion. Do NOT give if patient has a history of allergy to any local anesthetic or any ebonie product. Do NOT use both lidocaine intradermal/subcutaneous injection and the lidocaine cream on the same site., OB Preadmission metoclopramide (REGLAN) injection 10 mg 10 mg, Intravenous, Administer over 2 Minutes, EVERY 6 HOURS PRN, nausea, vomiting, Starting on Tue09/09/23 at 1316, This is Step 1 of OB nausea and vomiting management. If nausea is not resolved in 30 minutes, go to Step 2 (Zofran). Avoid use if patient has full bowel obstruction or perforation., OB Preadmission metoclopramide (REGLAN) tablet 10 mg 10 mg, Oral, EVERY 6 HOURS PRN, nausea and vomiting, Starting on Tue09/09/23 at 1316, This is Step 1 of OB nausea and vomiting management. If nausea is not resolved in 30 minutes, go to Step 2 (Zofran) Avoid use if patient has full bowel obstruction or perforation., OB Preadmission ondansetron (ZOFRAN ODT) ODT tab 4 mg 4 mg, Oral, EVERY 6 HOURS PRN, nausea, vomiting, Starting on Tue09/09/23 at 1316, This is Step 2 of OB nausea and vomiting management. Give If nausea not resolved in 30 minutes after giving metoclopramide (REGLAN). If nausea is not resolved in 15 minutes, go to Step 3 (Compazine). With dry hands, peel back foil backing and gently remove tablet. Do not push oral disintegrating tablet through foil backing. Administer immediately on tongue and oral disintegrating tablet dissolves in seconds, then swallow with saliva. Liquid not required., OB Preadmission ondansetron (ZOFRAN) injection 4 mg 4 mg, Intravenous, EVERY 6 HOURS PRN, nausea, vomiting, Administer over 2-5 Minutes, Starting on Tue09/09/23 at 1316, This is Step 2 of OB nausea and vomiting management. Give if nausea not resolved 30 minutes after giving metoclopramide (REGLAN). If nausea is not resolved in 15 minutes, go to Step 3 (Compazine)., OB Preadmission prochlorperazine (COMPAZINE) injection 10 mg 10 mg, Intravenous, EVERY 6 HOURS PRN, nausea, vomiting, Administer over 2 Minutes, Starting on Tue09/09/23 at 1316, This is Step 3 of OB nausea and vomiting management. Give if nausea not resolved 15 minutes after giving ondansetron (ZOFRAN). If nausea is not resolved in 30 minutes, notify provider., OB Preadmission prochlorperazine (COMPAZINE) suppository 25 mg 25 mg, Rectal, EVERY 12 HOURS PRN, nausea, vomiting, Starting on Tue09/09/23 at 1316, This is Step 3 of OB nausea and vomiting management. Give if nausea not resolved 15 minutes after giving ondansetron (ZOFRAN). If nausea is not resolved in 30 minutes, notify provider., OB Preadmission prochlorperazine (COMPAZINE) tablet 10 mg 10 mg, Oral, EVERY 6 HOURS PRN, nausea, vomiting, Starting on Tue09/09/23 at 1316, This is Step 3 of OB nausea and vomiting management. Give if nausea not resolved 15 minutes after giving ondansetron (ZOFRAN). If nausea is not resolved in 30 minutes, notify provider., OB Preadmission sodium chloride (PF) 0.9% PF flush 3 mL 3 mL, Intracatheter, EVERY 8 HOURS, First dose on Tue09/09/23 at 1330, to lock peripheral IV dormant line, OB Preadmission sodium chloride (PF) 0.9% PF flush 3 mL 3 mL, Intracatheter, EVERY 1 MIN PRN, line flush, other, to ensure patency or to lock dormant line, Starting on Tue09/09/23 at 1316, OB Preadmission documented in this encounter Active and Recently Administered Medications Times are shown in CDT. Scheduled Medication Order 09/07/2023 09/08/2023 09/09/2023 lactated ringers BOLUS 1,000 mL (COMPLETED) Intravenous, 1,000 mL, ONCE, On Tue09/09/23 at 1330, For 1 dose 1331 ($New Bag - Pro vider: Yelena Larson RN) sodium chloride (PF) 0.9% PF flush 3 mL 3 mL, Intracatheter, EVERY 8 HOURS, First dose on Tue09/09/23 at 1330, to lock peripheral IV dormant line, OB Preadmission 1330 (Canceled Entry - Provider: Orders Generic Provider - Comment: Automatically canceled at discontinue of medication order) PRN Medication Order 09/07/2023 09/08/2023 09/09/2023 lidocaine (LMX4) cream Topical, EVERY 1 HOUR PRN, pain, with VAD insertion, Starting on Tue09/09/23 at 1316, Apply at least 30 minutes prior to [...] mild pain with VAD insertion, Starting on Tue09/09/23 at 1316, MAX dose 1 mL subcutaneous OR intradermal along the side of the vein in divided doses as needed for VAD insertion. Do NOT give if patient has a history of allergy to any local anesthetic or any ebonie product. Do NOT use both lidocaine intradermal/subcutaneous injection and the lidocaine cream on the same site., OB Preadmission metoclopramide (REGLAN) injection 10 mg(Linked Group 1) 10 mg, Intravenous, Administer over 2 Minutes, EVERY 6 HOURS PRN, nausea, vomiting, Starting on Tue09/09/23 at 1316, This is Step 1 of OB nausea and vomiting management. If nausea is not resolved in 30 minutes, go to Step 2 (Zofran). Avoid use if patient has full bowel obstruction or perforation., OB Preadmission metoclopramide (REGLAN) tablet 10 mg(Linked Group 1) 10 mg, Oral, EVERY 6 HOURS PRN, nausea and vomiting, Starting on Tue09/09/23 at 1316, This is Step 1 of OB nausea and vomiting management. If nausea is not resolved in 30 minutes, go to Step 2 (Zofran) Avoid use if patient has full bowel obstruction or perforation., OB Preadmission ondansetron (ZOFRAN ODT) ODT tab 4 mg(Linked Group 2) 4 mg, Oral, EVERY 6 HOURS PRN, nausea, vomiting, Starting on Tue09/09/23 at 1316, This is Step 2 of OB nausea and vomiting management. Give If nausea not resolved in 30 minutes after giving metoclopramide (REGLAN). If nausea is not resolved in 15 minutes, go to Step 3 (Compazine). With dry hands, peel back foil backing and gently remove tablet. Do not push oral disintegrating tablet through foil backing. Administer immediately on tongue and oral disintegrating tablet dissolves in seconds, then swallow with saliva. Liquid not required., OB Preadmission ondansetron (ZOFRAN) injection 4 mg(Linked Group 2) 4 mg, Intravenous, EVERY 6 HOURS PRN, nausea, vomiting, Administer over 2-5 Minutes, Starting on Tue09/09/23 at 1316, This is Step 2 of OB nausea and vomiting management. Give if nausea not resolved 30 minutes after giving metoclopramide (REGLAN). If nausea is not resolved in 15 minutes, go to Step 3 (Compazine)., OB Preadmission prochlorperazine (COMPAZINE) injection 10 mg(Linked Group 3) 10 mg, Intravenous, EVERY 6 HOURS PRN, nausea, vomiting, Administer over 2 Minutes, Starting on Tue09/09/23 at 1316, This is Step 3 of OB nausea and vomiting management. Give if nausea not resolved 15 minutes after giving ondansetron (ZOFRAN). If nausea is not resolved in 30 minutes, notify provider., OB Preadmission prochlorperazine (COMPAZINE) suppository 25 mg(Linked Group 3) 25 mg, Rectal, EVERY 12 HOURS PRN, nausea, vomiting, Starting on Tue09/09/23 at 1316, This is Step 3 of OB nausea and vomiting management. Give if nausea not resolved 15 minutes after giving ondansetron (ZOFRAN). If nausea is not resolved in 30 minutes, notify provider., OB Preadmission prochlorperazine (COMPAZINE) tablet 10 mg(Linked Group 3) 10 mg, Oral, EVERY 6 HOURS PRN, nausea, vomiting, Starting on Tue09/09/23 at 1316, This is Step 3 of OB nausea and vomiting management. Give if nausea not resolved 15 minutes after giving ondansetron (ZOFRAN). If nausea is not resolved in 30 minutes, notify provider., OB Preadmission sodium chloride (PF) 0.9% PF flush 3 mL 3 mL, Intracatheter, EVERY 1 MIN PRN, line flush, other, to ensure patency or to lock dormant line, Starting on Tue09/09/23 at 1316, OB Preadmission Linked Groups Order Group 1: metoclopramide (REGLAN) injection 10 mgJump to med 10 mg, Intravenous, Administer over 2 Minutes, EVERY 6 HOURS PRN, nausea, vomiting, Starting on Tue09/09/23 at 1316, This is Step 1 of OB nausea and vomiting management. If nausea is not resolved in 30 minutes, go to Step 2 (Zofran). Avoid use if patient has full bowel obstruction or perforation., OB Preadmission Or metoclopramide (REGLAN) tablet 10 mgJump to med 10 mg, Oral, EVERY 6 HOURS PRN, nausea and vomiting, Starting on Tue09/09/23 at 1316, This is Step 1 of OB nausea and vomiting management. If nausea is not resolved in 30 minutes, go to Step 2 (Zofran) Avoid use if patient has full bowel obstruction or perforation., OB Preadmission Group 2: ondansetron (ZOFRAN ODT) ODT tab 4 mgJump to med 4 mg, Oral, EVERY 6 HOURS PRN, nausea, vomiting, Starting on Tue09/09/23 at 1316, This is Step 2 of OB nausea and vomiting management. Give If nausea not resolved in 30 minutes after giving metoclopramide (REGLAN). If nausea is not resolved in 15 minutes, go to Step 3 (Compazine). With dry hands, peel back foil backing and gently remove tablet. Do not push oral disintegrating tablet through foil backing. Administer immediately on tongue and oral disintegrating tablet dissolves in seconds, then swallow with saliva. Liquid not required., OB Preadmission Or ondansetron (ZOFRAN) injection 4 mgJump to med 4 mg, Intravenous, EVERY 6 HOURS PRN, nausea, vomiting, Administer over 2-5 Minutes, Starting on Tue09/09/23 at 1316, This is Step 2 of OB nausea and vomiting management. Give if nausea not resolved 30 minutes after giving metoclopramide (REGLAN). If nausea is not resolved in 15 minutes, go to Step 3 (Compazine)., OB Preadmission Group 3: prochlorperazine (COMPAZINE) injection 10 mgJump to med 10 mg, Intravenous, EVERY 6 HOURS PRN, nausea, vomiting, Administer over 2 Minutes, Starting on Tue09/09/23 at 1316, This is Step 3 of OB nausea and vomiting management. Give if nausea not resolved 15 minutes after giving ondansetron (ZOFRAN). If nausea is not resolved in 30 minutes, notify provider., OB Preadmission Or prochlorperazine (COMPAZINE) tablet 10 mgJump to med 10 mg, Oral, EVERY 6 HOURS PRN, nausea, vomiting, Starting on Tue09/09/23 at 1316, This is Step 3 of OB nausea and vomiting management. Give if nausea not resolved 15 minutes after giving ondansetron (ZOFRAN). If nausea is not resolved in 30 minutes, notify provider., OB Preadmission Or prochlorperazine (COMPAZINE) suppository 25 mgJump to med 25 mg, Rectal, EVERY 12 HOURS PRN, nausea, vomiting, Starting on Tue09/09/23 at 1316, This is Step 3 of OB nausea and vomiting management. Give if nausea not resolved 15 minutes after giving ondansetron (ZOFRAN). 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 [address] [place] [address] PCP - General 03/02/20 Mary Kate Herrera PA-C [address] [place] [address] Assigned PCP 02/15/[address] [facility] [address] [place] [address] 07/20/22 documented as of this encounter
--- OUTSIDE RECORDS SUMMARY | 2023-09-13 00:36 | XMS_ITS | Encounter Summary ---
Author Organization [place] Address [address] [facility] [place] [address] Care Team Providers Care Pharmacist Assistant Name Role Phone [facility], [facility] Primary Care Pro vider Mary Kate Herrera PA-C Unavailable Randal Joe MD Unavailable [phone] Reason for Visit * Reason Comments Abdominal Pain Encounter Details Date Type Department Care Team (Latest Contact Info) Description 09/01/2023 8:42 PM CDT - 09/01/2023 9:37 PM CDT Hospital Encounter [facility] [address] [place] [phone] Annika Kirkland MD [facility] [address] [place] [address] Discharge Disposition: Home or Self Care Social [...] Where can you learn more? Go to https://www.QA on Request.net/patiented Enter G674 in the search box to learn more about Learning About When to Call Your Doctor During (Up to 20 Weeks). Current as of: August 16, 2022 Content Version: 14.0 ?? [employer]. Care instructions adapted under license by your healthcare professional. If you have questions about a medical condition or this instruction, always ask your healthcare professional. 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
--- OUTSIDE RECORDS SUMMARY | 2023-09-13 00:37 | XMS_ITS | Encounter Summary ---
Author Organization [place] Address [address] [facility] [place] [address] Care Team Providers Care Financial Systems Director Name Role Phone [facility] Tracy Dorado MD Unavailable [phone] [facility] Primary Care Pro vider Jasvir Montoya MD Unavailable [phone] Mary Kate Herrera PA-C Unavailable Randal Joe MD Unavailable [phone] Mary Kate Herrera PA-C Unavailable Encounter Details Date Type Department Care Team (Late st Contact Info) Description 10/22/2019 MyC Medical Advice [facility] [address] [place] [address] Kathie Vanessa Social History Tobacco [...] Routed to correct clinic Cristina Adan RN [facility] documented in this encounter Plan of Treatment Not on file documented as of this encounter Visit Diagnoses Not on filedocumented in this encounter Additional Health Concerns Infection Onset Date Last Indicated Resolved Time Rule Out COVID-19 01/19/2021 01/19/2021 01/19/2021 3:03 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 Rule Out C-difficile 05/09/2021 05/10/2021 022 1:18 PM CDT C-difficile 05/10/2021 05/10/2021 06/09/2021 11:4 1 PM CDT Assessment Noted Time PHQ-9 Depression Total Score: 3 08/07/19 20 4:15 PM CDT documented as of this encounter Care Teams Financial Systems Director Relationship Specialty Start Date End Date Clinic - [facility] [address] [place] [address] PCP - General 01/08/19 03/01/20 [facility], [address] [address] PCP - General 03/02/20 [place] [address] [place] [address] Assigned PCP 10/21/19 07/02/20 [place] [address] [place] [address] Assigned PCP 07/03/20 02/14/21 Mary Kate Herrera PA-C [address] [place] [address] Assigned PCP 02/15/21 Randal Joe MD [facility] [address] [place] [address] 07/20/22 Mary Kate Herrera PA-C [address] [place] [address] Assigned Pain Medication Provider 01/01/23 03/02/23 documented as of this encounter
--- OUTSIDE RECORDS SUMMARY | 2023-09-13 00:37 | XMS_ITS | Encounter Summary ---
Author Organization [place] Address [address] [facility] [place] [address] Care Team Providers Care Hospice Educator Name Role Phone [facility], [facility] Primary Care Pro vider Mary Kate Herrera PA-C Unavailable Randal Joe MD Unavailable [phone] Reason for Visit * Reason Comments Complications Encounter Details Date Type Department Care Team (Late st Contact Info) Description 06/11/2023 10:32 AM CDT - 06/11/2023 1:13 PM T Emergency [facility] Emergency Dept [address] [place] [address] Brianda Ratliff, PA-C [facility] [address] [place] [address] First trimester Discharge Disposition: Home or Self [...] MG TABS VITAMIN D3 50 MCG (1999 [place]) tablet Surgical History Past Surgical History: Procedure Laterality Date APPENDECTOMY DILATION AND CURETTAGE SUCTION WITH ULTRASOUND GUIDANCE N/A 12/27/2022 Procedure: suction dilation and curettage with ultrasound guidance; Surgeon: Miranda Metzger DO; Location: OR [facility] NONSPECIFIC PROCEDURE 2002 appy Physical Exam Patient [...] ED Course Medical Decision Making / Diagnosis [facility] Diagnoses: None MIPS None [facility] Alisia Velasquez is a 38 [...] OB <14 WEEKS WITH TRANSVAGINAL SINGLE LOCATION: [facility] DATE: 06/11/2023 INDICATION: 6 weeks , [...] OB <14 WEEKS WITH TRANSVAGINAL SINGLE LOCATION: [facility] DATE: 06/11/2023 INDICATION: 6 weeks , [...] LAB - BLOOD ORDERABL ES RH LABORATORY [facility] Acute Care Lab [address] Lab (1st floor, no room number) [place] [address], [facility] * CBC with platelets and [...] LAB - BLOOD ORDERABL ES RH LABORATORY [facility] Acute Care Lab [address] Lab (1st floor, no room number) [place] [address], [facility] * (ABNORMAL) HCG QUALitative (blood) (06/11/2023 10:50 AM CDT) hCG Serum Qualitative Positive( A) Negative NICOLLE 06/11/2023 11:15 AM CDT [facility] LABORATORY Comment:This test is for scr eening purposes. Results should be interpreted along with the clinical picture. Confirmation testing is available if warranted by ordering [id number], HCG Quantitative . Blood STRUCTURE OF LEFT UPPER LIMB / Unknown Venipuncture / Unknown 06/11/2023 10:50 AM CDT 06/11/2023 10:56 AM CDT Brianda Ratliff PA-C LAB - BLOOD ORDERABL ES [facility] LAB[facility]ATORY [facility] Acute Care Lab [address] Lab (1st floor, no room number) [place] [address] * (ABNORMAL) Basic metabolic panel (06/11/2023 10:50 [...] LAB - BLOOD ORDERABL ES RH LABORATORY [facility] Care Lab [address] Lab (1st floor, no room number) [place] [address], [facility] documented in this encounter Visit [...] Total Score: 6 02/07/20 21 8:10 AM 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
--- OUTSIDE RECORDS SUMMARY | 2023-09-13 00:37 | XMS_ITS | Encounter Summary ---
Author Organization [place] Address [address] [facility] [place] [address] Care Team Providers Care Railroad Crossing Protection Maintainer Name Role Phone [facility], [facility] Primary Care Pro vider Mary Kate Herrera PA-C Unavailable Randal Joe MD Unavailable Reason for Visit * Reason Comments Vaginal Bleeding - Encounter Details Date Type Department Care Team (Late st Contact Info) Description 07/05/2023 2:36 AM CDT - 07/05/2023 5:51 AM CDT [facility] Emergency Dept [address] [place] [address] Miranda Estrada MD [facility] [address] [place], [place] [id number] Vaginal bleeding affecting early ; Subchorionic hematoma [...] your vagina. Follow-up as directed with your [employer] provider. Facts about miscarriage: We hope you [...] Chief Complaint Vaginal Bleeding - HPI Alisia Velasqeuz is a 38 year old female who [...] DO; Location: OR [facility] NONSPECIFIC PROCEDURE 2002 [facility] Physical Exam Patient Vitals for the past [...] Bilirubin Urine Negative Ketones Urine Negative Specific Helen Urine 1.018 Blood Urine Large (*) pH [...] POS Antibody Screen Negative SPECIMEN EXPIRATION DATE [id number] ABO/RH TYPE AND SCREEN Imaging US OB [...] pelvic exam. Medical Decision Making / Diagnosis [facility] Diagnoses: None MIPS None [facility] Alisia Velasquez is a 38 year [...] from subchorionic hematoma. Advise close follow-up with [employer]. Return precautions including worsening pain or bleeding [...] US OB < 14 WEEKS SINGLE-TRANSABDOMINAL LOCATION: [facility] DATE: 07/05/2023 INDICATION: Bleeding during . COMPARISON: [...] US OB < 14 WEEKS SINGLE-TRANSABDOMINAL LOCATION: [facility] DATE: 07/05/2023 INDICATION: Bleeding during . COMPARISON: [...] hematoma measuring 2.4 cm. Miranda Estrada MD [facility] US ORDERABLES * Adult Type and Screen (07/05/2023 3:30 AM CDT) ABO/RH(D) A POS 07/05/2023 3:15 AM CDT RH BLOOD BANK Antibody Screen Negative Negative 07/05/2023 3:15 AM CDT RH BLOOD BANK SPECIMEN EXPIRATION DATE [id number] 07/05/2023 3:15 AM CDT RH BLOOD BANK Blood BLOOD SPECIMEN / Unknown Venipuncture / Unknown 07/05/2023 3:30 AM CDT 07/05/2023 3:34 AM CDT Miranda Estrada MD LAB - BLOOD BANK T EST ORDER BLOOD BANK [address] [place] [address], [facility] * CBC with platelets and differential (07/05/2023 [...] MD LAB - BLOOD ORDERA BLES LABORATORY [facility] Care Lab [address] Lab (1st floor, no room number) [address] [place] [address] * (ABNORMAL) HCG quantitative (07/05/2023 3:30 AM CDT) hCG Quantitative 53,109(H) <5 mIU/mL 07/05/19 24 4:59 AM CDT RH LABORATORY Comment: Adult: 0-5 mIU/mL for healthy non- person Neonates: Should be within normal ranges by 2 days after Blood BLOOD SPECIMEN / Unknown Venipuncture / Unknown 07/05/2023 3:30 AM CDT 07/05/2023 3:34 AM CDT Miranda Estrada MD LAB - BLOOD ORDERA BLES LABORATORY [facility] Acute Care Lab [address] Lab (1st floor, no room number) [address] [place] [address] * (ABNORMAL) UA with Microscopic reflex to [...] 07/05/2023 3:13 AM CDT RH LABORATORY Specific Helen Urine 1.018 1.003 - 1.035 07/05/2023 3:13 [...] MD LAB - URINE MIKE STEVENSON LABORATORY [facility] Acute Care Lab [address] Lab (1st floor, no room number) [place] [address], [facility] documented in this encounter Visit Diagnoses Diagnosis Vaginal bleeding affecting early Subchorionic hematoma in first trimester, single or unspecified fetus documented in this encounter Additional Health Concerns Assessment Noted Time PHQ-9 Depression Total Score: 6 02/07/20 21 8:10 AM INSURANCE COMMISSIONER documented as of this encounter Care Teams Railroad Crossing Protection Maintainer Relationship Specialty Start Date End Date Clinic, [facility] [address] [place] [address] PCP - General 03/02/20 Mary Kate Herrera PA-C [address] [place] [address] Assigned PCP 02/15/21 Randal Joe MD [facility] [address] [place] [address] 07/20/22 documented as of this encounter
--- OUTSIDE RECORDS SUMMARY | 2023-09-13 00:37 | XMS_ITS | Encounter Summary ---
Author Organization [place] Address [address] [facility] [place] [address] Care Team Providers Care Consulting Psychiatrist Name Role Phone Tracy Dorado MD Primary Care Provider Kathy Ross PA-C Unavailable [phone] [facility] Primary Ca re Provider Jasvir Montoya MD Unavailable + [phone] Kathy Ross PA-C Unavailable [phone] Tracy Dorado MD Unavailable [phone] [facility] Primary Care Pro vider Jasvir Montoya MD Unavailable + [phone] Mary Kate Herrera PA-C Unavailable Randal Joe MD Unavailable [phone] Mary Kate Herrera PA-C Unavailable Reason for Visit * Reason Comments Medication Refill Encounter Details Date Type Department Care Team (Late st Contact Info) Description 11/22/2018 Refill [facility] [place] [address] [place] [address] Aimee Cheatham MD [address] [place] [address] Medication Refill Social History Tobacco [...] Out COVID-19 01/19/2021 01/19/2021 01/19/2021 3:03 PM PLEASURE CRAFT SAILOR Rule Out C-difficile 05/09/2021 05/10/2021 022 1:18 PM CDT C-difficile 05/10/2021 05/10/2021 06/09/2021 11:4 1 PM CDT Assessment Noted Time PHQ-9 Depression Total Score: 2 08/20/19 19 10:23 AM CDT documented as of this encounter Care Teams Consulting Psychiatrist Relationship Specialty Start Date End Date Tracy Dorado MD PCP - General Family Practice 11/02/12 01/07/19 [facility] [address] [place] [address] PCP - General 01/08/19 03/01/20 [facility] [address] [place] [address] PCP - General 03/02/20 Kathy Ross PA-C [address] [place] [address] [address] [place] [address] Assigned PCP 10/22/18 08/18/19 [place] [address] [place] [address] Assigned PCP 08/19/19 08/25/19 Kathy Ross PA-C [address] [place] [address] Assigned PCP 08/26/19 10/20/19 [place] [address] [place] [address] Assigned PCP 10/21/19 07/02/20 [place] [address] [place] [address] Assigned PCP 07/03/20 02/14/21 Mary Kate Herrera PA-C [address] [facility] [address] Assigned PCP 02/15/[address] [facility] [address] [place] [address] 07/20/22 Mary Kate Herrera PA-C [address] [place] [address] Assigned Pain Medication Provider 01/01/23 03/02/23 documented as of this encounter
--- OUTSIDE RECORDS SUMMARY | 2023-09-13 00:37 | XMS_ITS | Encounter Summary ---
Author Organization [place] Address [address] [facility] [place] [address] Care Team Providers Care Billboard Poster Name Role Phone [facility], [facility] Primary Care Pro vider Mary Kate Herrera PA-C Unavailable Randal Joe MD Unavailable [phone] Encounter Details Date Type Department Care Team [...] Total Score: 6 02/07/20 21 8:10 AM TOP SCREW documented as of this encounter Care Teams Billboard Poster Relationship Specialty Start Date End Date [facility], [facility] [address] [place], [place] [phone] PCP - General 03/02/20 Mary Kate Herrera PA-C [address] [place] [address] Assigned PCP 02/15/21 Randal Joe MD [facility] [address] [place] [address] 07/20/22 documented as of this encounter
--- OUTSIDE RECORDS SUMMARY | 2023-09-13 00:37 | XMS_ITS | Encounter Summary ---
Author Organization [place] Address [address] [facility] [place] [address] Care Team Providers Care Auto Mechanics Instructor Name Role Phone [facility], [facility] Primary Care Pro vider Mary Kate Herrera PA-C Unavailable Randal Joe MD Unavailable [phone] Encounter Details Date Type Department Care Team [...] Total Score: 6 02/07/20 21 8:10 AM RIVER RAT documented as of this encounter Care Teams Auto Mechanics Instructor Relationship Specialty Start Date End Date [facility], [facility] [address] [place], [place] [phone] PCP - General 03/02/20 Mary Kate eHrrera PA-C [address] [place] [address] Assigned PCP 02/15/21 Randal Joe MD [facility] [address] [place] [address] 07/20/22 documented as of this encounter
--- OUTSIDE RECORDS SUMMARY | 2023-09-13 00:37 | XMS_ITS | Encounter Summary ---
Author Organization [place] Address [address] [place] [address] Care Team Providers Care Television Technician Name Role Phone [facility], [facility] Primary Care Pro vider Mary Kate Herrera PA-C Unavailable Randal Joe MD Unavailable [phone] Reason for Visit * Reason Comments Emesis During Encounter Details Date Type Department Care Team (Late st Contact Info) Description 07/08/2023 8:01 PM CDT - 07/08/2023 10:[address] [facility] Emergency Dept [address] [place] [address] Shekhar Rashid MD [facility] [address] [place] [address] Nausea; Anxiety; First trimester Discharge Disposition: Home [...] Everywhere. * : Weeks 10 to 14 (Chilean) * Nausea and Vomiting (Chilean) documented in this encounter Medications at Time [...] IV fluids and phenergan. Within moments of engineering technical writer exiting the room, patient placed the call light back on stating I don't feel better.... my eyes hurt... my back continues to hurt. When engineering technical writer attempted to clarify what the [...] DO; Location: OR [facility] NONSPECIFIC PROCEDURE 2002 [facility] Physical Exam Patient Vitals for the past [...] Bilirubin Urine Negative Ketones Urine Negative Specific Leonard Urine 1.009 Blood Urine Negative pH Urine [...] 07/08/2023 9:19 PM CDT RH LABORATORY Specific Leonard Urine 1.009 1.003 - 1.035 07/08/2023 9:19 [...] Rashid MD LAB - URINE ORDERABL ES [facility] Lab [address] Lab (1st floor, no room number) [place] [phone] [place] [address] * Extra Red Top Tube (07/08/2023 8:50 PM CDT) Pathologist [facility] Hold Specimen [facility] 07/08/2023 10:02 PM CDT LABORATORY Blood BLOOD SPECIMEN / Unknown Venipuncture / Unknown 07/08/2023 8:50 PM CDT 07/08/2023 8:54 PM CDT Shekhar Rashid MD LAB - BLOOD ORDERABL ES [facility] Care Lab [address] Lab (1st floor, no room number) [place] [address], [facility] * (ABNORMAL) CBC with platelets and [...] - BLOOD ORDERABL ES Performing Organization Address City/[facility]/ZIP Co de Phone Number [facility] Lab [address] Lab (1st floor, no room number) [address] * Lipase (07/08/2023 8:50 PM CDT) Lipase 36 13 - 60 U/L 07/08/2023 9:33 PM CDT RH LABORATORY Blood BLOOD SPECIMEN / Unknown Venipuncture / Unknown 07/08/2023 8:50 PM CDT 07/08/2023 8:54 PM CDT Shekhar Rashid MD LAB - BLOOD ORDERABL ES Performing Organization Address [facility]/ZIP Co de Phone Number [facility] Lab [address] Lab (1st floor, no room number) [address] * (ABNORMAL) Comprehensive metabolic panel (07/08/2023 [...] MD LAB - BLOOD ORDERABL ES LABORATORY [facility] Acute Care Lab [address] [facility] Lab (1st floor, no room number) [place] [address] documented in this encounter Visit Diagnoses [...] Total Score: 6 02/07/20 21 8:10 AM BRICKLAYER PAVING BRICK documented as of this encounter Care Teams Television Technician Relationship Specialty Start Date End Date [facility], [facility] [place] [address] [place] [address] PCP - General 03/02/20 Mary Kate Herrera PA-C [address] [place] [address] Assigned PCP 02/15/21 Randal Joe MD [facility] [address] [place] [address] 07/20/22 documented as of this encounter
--- OUTSIDE RECORDS SUMMARY | 2023-09-13 00:37 | XMS_ITS | Encounter Summary ---
Author Organization [place] Address [address] [facility] [place] [address] Care Team Providers Care Sales Assistant Displays Name Role Phone Kathy Ross PA-C Unavailable [phone] [facility] Primary Ca re Provider Jasvir Montoya MD Unavailable [phone] Kathy Ross PA-C Unavailable [phone] Tracy Dorado MD Unavailable [facility] Primary Care Pro vider Jasvir Montoya MD Unavailable [phone] Mary Kate Herrera PA-C Unavailable Randal Joe MD Unavailable [phone] Mary Kate Herrera PA-C Unavailable Reason for Visit * Reason Comments Medication Refill Encounter Details Date Type Department Care Team (Late st Contact Info) Description 02/12/[address] [address] [place] [address] [place] [place], [place] [phone] Medication Refill Social History Tobacco Use Types [...] COVID-19 01/19/2021 01/19/2021 01/19/2021 3:03 PM CONSTRUCTION QUALITY CONTROL MANAGER Rule Out C-difficile 05/09/2021 05/10/2021 022 1:18 PM CDT C-difficile 05/10/2021 05/10/2021 06/09/2021 11:4 1 PM CDT Assessment Noted Time PHQ-9 Depression Total Score: 2 08/20/19 19 10:23 AM CDT documented as of this encounter Care Teams Sales Assistant Displays Relationship Specialty Start Date End Date Clinic - [facility] [address] [place] [address] PCP - General 01/08/19 03/01/[address] [address] PCP - General 03/02/20 Kathy Ross PA-C [address] [facility] [address] [place] [address] Assigned PCP 10/22/18 08/18/19 [place] [address] [place] [address] Assigned PCP 08/19/19 08/25/19 Kathy Ross PA-C [address] [place] [address] Assigned PCP 08/26/19 10/20/19 [place] [address] [place] [address] Assigned PCP 10/21/19 07/02/20 [place] [address] [place] [address] Assigned PCP 07/03/20 02/14/21 Mary Kate Herrera PA-C [address] [place] [address] Assigned PCP 02/15/[address] [facility] [address] [place] [address] 07/20/22 Mary Kate Herrera PA-C [address] [place] [address] Assigned Pain Medication Provider 01/01/23 03/02/23 documented as of this encounter
--- OUTSIDE RECORDS SUMMARY | 2023-09-13 00:37 | XMS_ITS | Encounter Summary ---
Author Organization [place] Address [address] [place] [address] Care Team Providers Care Preschool Teacher Assistant Name Role Phone [facility], [facility] Primary Care Pro vider Mary Kate Herrera PA-C Unavailable Randal Joe MD Unavailable [phone] Encounter Details Date Type Department Care Team [...] Total Score: 6 02/07/20 21 8:10 AM CARVING MACHINE OPERATOR documented as of this encounter Care Teams Preschool Teacher Assistant Relationship Specialty Start Date End Date [facility], [facility] [address] [place], [place] [phone] PCP - General 03/02/20 Mary Kate Herrera PA-C [address] [place] [address] Assigned PCP 02/15/21 Randal Joe MD [facility] [address] [place] [address] 07/20/22 documented as of this encounter
--- OUTSIDE RECORDS SUMMARY | 2023-09-13 00:37 | XMS_ITS | Encounter Summary ---
Author Organization [place] Address [address] [facility] [place] [address] Care Team Providers Care Platform Attendant Name Role Phone Clinic, [facility] Primary Care Pro vider Mary Kate Herrera PA-C Unavailable Randal Joe MD Unavailable [phone] Mary Kate Herrera PA-C Unavailable Encounter [...] Total Score: 6 02/07/20 21 8:10 AM COMPUTER CLERK documented as of this encounter Care Teams Platform Attendant Relationship Specialty Start Date End Date Clinic, [facility] [address] [place] [address] PCP - General 03/02/20 Mary Kate Herrera PA-C [address] [place] [address] Assigned PCP 02/15/21 Randal Joe MD [facility] [address] [place] [address] 07/20/22 Mary Kate Herrera PA-C [address] [place] [address] Assigned Pain Medication Provider 01/01/23 03/02/23 documented as of this encounter
--- OUTSIDE RECORDS SUMMARY | 2023-09-13 00:37 | XMS_ITS | Encounter Summary ---
Author Organization [place] Address [address] [facility] [place] [address] Care Team Providers Care Adult Education Teacher Name Role Phone [facility], [facility] Primary Care Pro vider Mary Kate Herrera PA-C Unavailable Randal Joe MD Unavailable Reason for Visit * Reason Comments Threatened Miscarriage Encounter Details Date Type Department Care Team (Late st Contact Info) Description 06/26/2023 6:36 PM CDT - 06/26/2023 8:49 PM CDT Emergency [facility] Emergency Dept [address] [place] [address] Ivan Grace PA-C [facility] [address] [place], [place] [id number] Subchorionic hemorrhage of placenta in first trimester [...] through Care Everywhere. * : Subchorionic Hematoma (Swedish) documented in this encounter Medications at Time [...] Bilirubin Urine Negative Ketones Urine Negative Specific [place] Urine 1.017 Blood Urine Negative pH Urine [...] noted above. Medical Decision Making / Diagnosis [facility] Diagnoses: None MIPS None MDM Alisia [...] at this time. Advised patient call her HISTORICAL ARCHEOLOGIST to discuss visit to the emergency department. [...] any typographical errors. Ivan Grace PA-C 06/26/23 3877 documented in this encounter Plan of Treatment [...] 1ST TRIMESTER W TRANSVAGINAL W DOPPLER LOCATION: [facility] DATE: 06/26/2023 INDICATION: lower abdominal pain, [...] 1ST TRIMESTER W TRANSVAGINAL W DOPPLER LOCATION: [facility] DATE: 06/26/2023 INDICATION: lower abdominal pain, [...] hemorrhage measuring 2 cm. Ivan Grace PA-C [facility] ORDERABLES * Extra Blood Bank Purple Top Tube (06/26/2023 6:27 PM CDT) Hold Specimen [facility] 06/26/2023 7:46 PM CDT [facility] LABORATORY Blood STRUCTURE OF LEFT UPPER LIMB / Unknown Venipuncture / Unknown 06/26/2023 6:27 PM CDT 06/26/2023 6:34 PM CDT Ivan Grace PA-C LAB - BLOOD ORDERABL ES [facility] Acute [facility] Lab [address] Lab (1st floor, no room number) [place] [address], [place] * Extra Blood Bank Purple Top Tube (06/26/2023 6:27 PM CDT) Hold Specimen [facility] 06/26/2023 7:46 PM CDT [facility] LABORATORY Blood STRUCTURE OF LEFT UPPER LIMB / Unknown Venipuncture / Unknown 06/26/2023 6:27 PM CDT 06/26/2023 6:35 PM CDT Ivan Grace PA-C LAB - BLOOD ORDERABL ES Performing Organization Address [facility] Co de Phone Number [facility] [address] Lab (1st floor, no room number) [place] [phone] [place] [address] * Extra Red Top Tube (06/26/2023 6:22 PM CDT) Hold Specimen [facility] 06/26/2023 7:46 PM CDT RH LABORATORY Blood STRUCTURE OF LEFT UPPER LIMB / Unknown Venipuncture / Unknown 06/26/2023 6:22 PM CDT 06/26/2023 6:35 PM CDT Ivan Grace PA-C LAB - BLOOD ORDERABL ES Performing Organization Address [facility]/ZIP Co de Phone Number [facility] Care Lab [address] Lab (1st floor, no room number) [place] [phone] [place] [address] * Extra Blue Top Tube (06/26/2023 6:22 PM CDT) Hold Specimen [facility] 06/26/2023 7:46 PM CDT RH LABORATORY Blood STRUCTURE OF LEFT UPPER LIMB / Unknown Venipuncture / Unknown 06/26/2023 6:22 PM CDT 06/26/2023 6:34 PM CDT Ivan Grace PA-C LAB - BLOOD ORDERABL ES RH LABORATORY [facility] Lab [address] Lab (1st floor, no room number) [place] [address], [facility] * CBC with platelets and differential (06/26/2023 [...] - BLOOD ORDERABL ES Performing Organization Address City/[facility]/ZIP Co de Phone Number LABORATORY [facility] Care Lab [address] Lab (1st floor, no room number) [place] [address] * (ABNORMAL) hCG Quantitative (blood) (06/26/2023 6:22 PM CDT) [facility] hCG Quantitative 59,278(H) <5 mIU/mL 06/26/19 7:30 PM CDT RH LABORATORY Comment: Adult: 0-5 mIU/mL for healthy non- person Neonates: Should be within normal ranges by 2 days after Blood STRUCTURE OF LEFT UPPER LIMB / Unknown Venipuncture / Unknown 06/26/2023 6:22 PM CDT 06/26/2023 6:35 PM CDT Ivan MARTINEZ-C LAB - BLOOD ORDERABL ES LABORATORY [facility] [address] Lab (1st floor, no room number) [place] [address] * Basic metabolic panel (06/26/2023 6:22 [...] PA-C LAB - BLOOD ORDERABL ES LABORATORY [facility] Lab [address] [facility] Lab (1st floor, no room number) [place] [address], [facility] * (ABNORMAL) UA with Microscopic reflex to [...] mg/dL 06/26/2023 7:37 PM CDT LABORATORY Specific [place] Urine 1.017 1.003 - 1.035 06/26/2023 7:37 [...] PA-C LAB - URINE ORDERABL ES LABORATORY [facility] [address] [facility] (1st floor, no room number) [place] [address] documented in this encounter Visit Diagnoses [...] Total Score: 6 02/07/20 21 8:10 AM ACTIVITIES DIRECTOR documented as of this encounter Care Teams Adult Education Teacher Relationship Specialty Start Date End Date Clinic, [facility] [address] [place] [address] PCP - General 03/02/20 Mary Kate Herrera PA-C [address] [place] [address] Assigned PCP 02/15/21 Randal Joe MD [facility] [address] [place] [address] 07/20/22 documented as of this encounter
--- OUTSIDE RECORDS SUMMARY | 2023-09-13 00:37 | XMS_ITS | Encounter Summary ---
Author Organization [place] Address [address] [facility] [place] [address] Care Team Providers Care Ecological Risk Assessor Name Role Phone Clinic, [facility] Primary Care Pro vider Mary Kate Herrera PA-C Unavailable Randal Joe MD Unavailable Mary Kate Herrera PA-C Unavailable Encounter Details [...] Total Score: 6 02/07/20 21 8:10 AM EMPLOYEE OPERATIONS EXAMINER documented as of this encounter Care Teams Ecological Risk Assessor Relationship Specialty Start Date End Date Clinic, [facility] [address] [place] [address] PCP - General 03/02/20 Mary Kate Herrera PA-C [address] [place] [address] Assigned PCP 02/15/[address] [facility] [address] [place] [address] 07/20/22 Mary Kate Herrera PA-C [address] [place] [address] Assigned Pain Medication Provider 01/01/23 03/02/23 documented as of this encounter
--- OUTSIDE RECORDS SUMMARY | 2023-09-13 00:37 | XMS_ITS | Encounter Summary ---
Author Organization [place] Address [address] [facility] [place] [address] Care Team Providers Care Dice Manager Name Role Phone Kathy Ross PA-C Unavailable [phone] [facility] Primary Ca re Provider Jasvir Montoya MD Unavailable [phone] Kathy Ross PA-C Unavailable [phone] Tracy Dorado MD Unavailable [facility] Primary Care Pro vider Jasvir Montoya MD Unavailable Mary Kate Herrera PA-C Unavailable Randal Joe MD Unavailable Mary Kate Herrera PA-C Unavailable Reason for Visit * Reason Comments Medication Refill Encounter Details Date Type Department Care Team (Late st Contact Info) Description 07/22/2019 Refill [facility] [id number] [place] [address] Kathy Ross PA-C [address] [place] [address] Medication Refill Social History Tobacco Use Types [...] Out COVID-19 01/19/2021 01/19/2021 01/19/2021 3:03 PM BRASSIERE CUP MOLD CUTTER Rule Out C-difficile 05/09/2021 05/10/2021 022 1:18 PM CDT C-difficile 05/10/2021 05/10/2021 06/09/2021 11:4 1 PM CDT Assessment Noted Time PHQ-9 Depression Total Score: 2 08/20/19 19 10:23 AM CDT documented as of this encounter Care Teams Dice Manager Relationship Specialty Start Date End Date Clinic - [facility] [address] [address] PCP - General 01/08/19 03/01/20 [facility] [place] [address] [place] [address] PCP - General 03/02/20 Kathy Ross PA-C [address] [facility] [address] [place] [address] Assigned PCP 10/22/18 08/18/19 [place] [address] [place] [address] Assigned PCP 08/19/19 08/25/19 Kathy Ross PA-C [address] [place] [address] Assigned PCP 08/26/19 10/20/19 [place] [address] [address] [place] [address] Assigned PCP 10/21/19 07/02/20 [place] [address] [place] [address] Assigned PCP 07/03/20 02/14/21 Mary Kate Herrera PA-C [address] [place] [address] Assigned PCP 02/15/21 Randal Joe MD [facility] [address] [place] [address] 07/20/22 Mary Kate Herrera PA-C [address] [place] [address] Assigned Pain Medication Provider 01/01/23 03/02/23 documented as of this encounter
--- OUTSIDE RECORDS SUMMARY | 2023-09-13 00:37 | XMS_ITS | Encounter Summary ---
Author Organization [place] Address [address] [facility] [place] [address] Care Team Providers Care In Store Marketing Associate Name Role Phone [facility], [facility] Primary Care Pro vider Mary Kate Herrera PA-C Unavailable Randal Joe MD Unavailable [phone] Encounter Details Date Type Department Care Team [...] Total Score: 6 02/07/20 21 8:10 AM ORTHOTIST documented as of this encounter Care Teams In Store Marketing Associate Relationship Specialty Start Date End Date [facility], [facility] [address] [place], [place] [phone] PCP - General 03/02/20 Mary Kate Herrera PA-C [address] [place] [address] Assigned PCP 02/15/21 Randal Joe MD [facility] [address] [place] [address] 07/20/22 documented as of this encounter
--- OUTSIDE RECORDS SUMMARY | 2023-09-13 00:37 | XMS_ITS | Encounter Summary ---
Author Organization [place] Address [address] [facility] [place] [address] Care Team Providers Care Barytes Grinder Name Role Phone Clinic - [facility] Primary Ca re Provider Jasvir Montoya MD Unavailable [phone] Kathy Ross PA-C Unavailable [phone] Tracy Dorado MD Unavailable [phone] [facility] Pro vider Jasvir Montoya MD Unavailable [phone] Mary Kate Herrera PA-C Unavailable Randal Joe MD Unavailable [phone] Mary Kate Herrera PA-C Unavailable Encounter Details Date Type Department Care Team (Late st Contact Info) Description 08/25/2019 MyC Medical Advice [facility] [address] [place] [address] Anisa Krueger DO [address] [address] Social History Tobacco Use Types Packs/Day Years [...] Out COVID-19 01/19/2021 01/19/2021 01/19/2021 3:03 PM EXTRACT MIXER Rule Out C-difficile 05/09/2021 05/10/2021 022 1:18 PM CDT C-difficile 05/10/2021 05/10/2021 06/09/2021 11:4 1 PM CDT Assessment Noted Time PHQ-9 Depression Total Score: 3 08/07/19 20 4:15 PM CDT documented as of this encounter Care Teams Barytes Grinder Relationship Specialty Start Date End Date Clinic - [facility] [address] [place] [address] PCP - General 01/08/19 03/01/[address] [address] PCP - General 03/02/20 [place] [address] [place] [address] Assigned PCP 08/19/19 08/25/19 Kathy Ross PA-C [address] [address] Assigned PCP 08/26/19 10/20/19 [place] [address] [place] [address] Assigned PCP 10/21/19 07/02/20 [place] [address] [place] [address] Assigned PCP 07/03/20 02/14/21 Mary Kate Herrera PA-C [address] [place] [address] Assigned PCP 02/15/21 Randal Joe MD [facility] [address] [place] [address] 07/20/22 Mary Kate Herrera PA-C [address] [place] [address] Assigned Pain Medication Provider 01/01/23 03/02/23 documented as of this encounter
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
--- OUTSIDE RECORDS SUMMARY | 2023-09-13 00:38 | XMS_ITS | Encounter Summary ---
Author Organization [place] Address [address] [facility] [place] [address] Care Team Providers Care Flying Squad Worker Name Role Phone Tracy Dorado MD Primary Care Provider + Tracy Dorado MD Unavailable + Tracy Dorado MD Unavailable + Jasvir Montoya MD Unavailable + Kathy Ross PA-C Unavailable [phone] [facility] Primary Ca re Provider + Jasvir Montoya MD Unavailable + Kathy Ross PA-C Unavailable +[phone] Tracy Dorado MD Unavailable + [facility] Primary Care Pro vider + Jasvir Montoya MD Unavailable + Mary Kate Herrera PA-C Unavailable Randal Joe MD Unavailable [phone] Mary Kate Herrera PA-C Unavailable Encounter Details Date Type Department Care Team (Late st Contact Info) Description 02/24/2015 [facility] Medical Advice [facility], [address] [place] [phone] Alison Messer APRN SENIOR MECHANICAL DESIGN ENGINEER [address] [place] [address] [address] [place] [address] Social History Tobacco Use Types Packs/Day Years [...] Out COVID-19 01/19/2021 01/19/2021 01/19/2021 3:03 PM FRUIT RECEIVER Rule Out C-difficile 05/09/2021 05/10/2021 022 1:18 PM CDT C-difficile 05/10/2021 05/10/2021 06/09/2021 11:4 1 PM CDT Assessment Noted Time PHQ-9 Depression Total Score: 2 11/20/19 15 7:27 AM CDT documented as of this encounter Care Teams Flying Squad Worker Relationship Specialty Start Date End Date Tracy Dorado MD PCP - General Family Practice 11/02/12 01/07/19 [place] [address] [address] [address] PCP - Assigned PCP 02/13/17 04/11/18 [facility] [address] [address] [address] PCP - General 01/08/19 03/01/20 [facility] [address] [place] [address] PCP - General 03/02/20 [place] [address] [place] [address] Assigned PCP 02/13/17 08/19/18 [place] [address] [place] [address] Assigned PCP 08/20/18 10/21/18 Kathy Ross PA-C [address] [facility] [place] [address] Assigned PCP 10/22/18 08/18/19 [place] [address] [place] [address] Assigned PCP 08/19/19 08/25/19 Kathy Ross PA-C [address] [facility] [place] [address] Assigned PCP 08/26/19 10/20/19 [place] [address] [place] [address] Assigned PCP 10/21/19 07/02/20 [place] [address] [place] [address] Assigned PCP 07/03/20 02/14/21 AasMary Kate Sheth PA-C [address] [place] [address] Assigned PCP 02/15/21 Randal Joe MD [facility] [address] [place] [address] 07/20/22 Mary Kate Herrera PA-C [address] [place] [address] Assigned Pain Medication Provider 01/01/23 03/02/23 documented as of this encounter
--- OUTSIDE RECORDS SUMMARY | 2023-09-13 00:38 | XMS_ITS | Encounter Summary ---
Author Organization [place] Address [address] [facility] [place] [address] Care Team Providers Care Laboratory Tech Name Role Phone Tracy Dorado MD Primary Care Provider Jasvir Montoya MD Unavailable + [phone] Kathy Ross PA-C Unavailable +[phone] [facility] Primary Ca re Provider Jasvir Montoya MD Unavailable + [phone] Kathy Ross PA-C Unavailable [phone] Tracy Dorado MD Unavailable +[phone] [facility] Primary Care Pro vider Jasvir Montoya MD Unavailable + [phone] Mary Kate Herrera PA-C Unavailable Randal Joe MD Unavailable [phone] Mary Kate Herrera PA-C Unavailable Encounter Details Date Type Department Care Team (Late st Contact Info) Description 10/17/2018 MyC Medical Advice [address], [address] [place] [address] Fatoumata Parsons Social History Tobacco [...] Out COVID-19 01/19/2021 01/19/2021 01/19/2021 3:03 PM RAW STOCK MACHINE 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 Rule Out C-difficile 05/09/2021 05/10/2021 022 1:18 PM CDT C-difficile 05/10/2021 05/10/2021 06/09/2021 11:4 1 PM CDT Assessment Noted Time PHQ-9 Depression Total Score: 2 08/20/19 19 10:23 AM CDT documented as of this encounter Care Teams Laboratory Tech Relationship Specialty Start Date End Date Tracy Dorado MD PCP - General Family Practice 11/02/12 01/07/19 [facility] [address] [place], [place] [address] PCP - General 01/08/19 03/01/20 [facility] [id number] [place] [address] PCP - General 03/02/20 [place] [address] [email or web address] [place] [address] Assigned PCP 08/20/18 10/21/18 Kathy Ross PA-C [address] [place] [facility] [address] Assigned PCP 10/22/18 08/18/19 [place] [address] [place] [address] Assigned PCP 08/19/19 08/25/19 Kathy Ross PA-C [address] [place] [facility] [place] [address] Assigned PCP 08/26/19 10/20/19 [place] [address] [place] [address] Assigned PCP 10/21/19 07/02/20 [place] [address] [place] [address] Assigned PCP 07/03/20 02/14/21 Mary Kate Herrera PA-C [address] [place] [address] Assigned PCP 02/15/21 Randal Joe MD [facility] [address] [place] [address] 07/20/22 Mary Kate Herrera PA-C [address] [place] [address] Assigned Pain Medication Provider 01/01/23 03/02/23 documented as of this encounter
--- OUTSIDE RECORDS SUMMARY | 2023-09-13 00:38 | XMS_ITS | Encounter Summary ---
Author Organization [place] Address [address] [facility] [place] [address] Care Team Providers Care Drafter (Cad) Electrical Name Role Phone Tracy Dorado MD Primary Care Provider + Tracy Dorado MD Unavailable + Jasvir Montoya MD Unavailable + Kathy Ross PA-C Unavailable +[phone] [facility] Primary Ca re Provider + Jasvir Montoya MD Unavailable + Kathy Ross PA-C Unavailable +[phone] Tracy Dorado MD Unavailable + [facility] Primary Care Pro vider + Jasvir Montoya MD Unavailable + Mary Kate Herrera PA-C Unavailable Randal Joe MD Unavailable [phone] Mary Kate Herrera PA-C Unavailable Encounter Details Date Type Department Care Team (Late st Contact Info) Description 05/25/2018 [facility] [place] [facility] [id number] [place] [address] Anisa Krueger Halie, DO [address] [facility] [address] [place] [address] Encounter for initial prescription of contraceptive pills [...] Out COVID-19 01/19/2021 01/19/2021 01/19/2021 3:03 PM PUDDLER PILE DRIVING Rule Out C-difficile 05/09/2021 05/10/2021 022 1:18 PM CDT C-difficile 05/10/2021 05/10/2021 06/09/2021 11:4 1 PM CDT Assessment Noted Time PHQ-9 Depression Total Score: 3 06/19/19 18 2:19 PM CDT documented as of this encounter Care Teams Drafter (Cad) Electrical Relationship Specialty Start Date End Date Tracy Dorado MD PCP - General Family Practice 11/02/12 01/07/19 Clinic - [facility] [address] [place] [address] PCP - General 01/08/19 03/01/[address] [address] PCP - General 03/02/20 [place] [address] [place] [address] Assigned PCP 02/13/17 08/19/18 [place] [address] [place] [address] Assigned PCP 08/20/18 10/21/18 Kathy Ross PA-C [address] [address] Assigned PCP 10/22/18 08/18/19 [place] [address] [place] [address] Assigned PCP 08/19/19 08/25/19 Kathy Ross PA-C [address] [address] Assigned PCP 08/26/19 10/20/19 [place] [address] [place] [address] Assigned PCP 10/21/19 07/02/20 [place] [address] [place] [address] Assigned PCP 07/03/20 02/14/21 Mary Kate Herrera PA-C [address] [place] [address] Assigned PCP 02/15/21 Randal Joe MD [facility] [address] [place] [address] 07/20/22 Mary Kate Herrera PA-C [address] [place] [address] Assigned Pain Medication Provider 01/01/23 03/02/23 documented as of this encounter
--- OUTSIDE RECORDS SUMMARY | 2023-09-13 00:38 | XMS_ITS | Encounter Summary ---
Author Organization [place] Address [address] [facility] [place] [address] Care Team Providers Care Veneer Sander Name Role Phone Mary Clark MD Primary Care Provider [phone] Tracy Dorado MD Primary Care Provider Tracy Dorado MD Unavailable +[phone] Tracy Dorado MD Unavailable +[phone] Jasvir Montoya MD Unavailable + 731 Kathy Ross PA-C Unavailable +[phone] [facility] Primary Ca re Provider + Jasvir Montoya MD Unavailable + 331 Kathy Ross PA-C Unavailable +[phone] Tracy Dorado MD Unavailable +526 [facility] Primary Care Pro vider Jasvir Montoya MD Unavailable + [phone] Mary Kate Herrera PA-C Unavailable Randal Joe MD Unavailable +[phone] Mary Kate Herrera PA-C Unavailable Encounter Details Date Type Department Care Team (Late st Contact Info) Description 09/27/2011 MyC Medical Advice [facility] [id number] [place] [phone] Mary Clark MD [address] [place] [address] Social History Tobacco Use Types Packs/Day Years [...] Out COVID-19 01/19/2021 01/19/2021 01/19/2021 3:03 PM TIPPLE GREASER Rule Out C-difficile 05/09/2021 05/10/2021 022 1:18 PM CDT C-difficile 05/10/2021 05/10/2021 06/09/2021 11:4 1 PM CDT documented as of this encounter Care Teams Veneer Sander Relationship Specialty Start Date End Date Mary Clark MD PCP - General 06/26/04 11/01/12 Tracy Dorado MD PCP - General Family Practice 11/02/12 01/07/19 [place] [address] [address] [address] PCP - Assigned PCP 02/13/17 04/11/18 [facility] [address] [address] [address] PCP - General 01/08/19 03/01/[address] [address] PCP - General 03/02/20 [place] [address] [place] [address] Assigned PCP 02/13/17 08/19/18 [place] [address] [place] [address] Assigned PCP 08/20/18 10/21/18 Kathy Ross PA-C [address] [address] Assigned PCP 10/22/18 08/18/19 [place] [address] [address] [address] Assigned PCP 08/19/19 08/25/19 Kathy Ross PA-C 480 [facility] 96 [place] [address] Assigned PCP 08/26/19 10/20/19 [place] [address] [place] [address] Assigned PCP 10/21/19 07/02/20 [place] [address] [place] [address] Assigned PCP 07/03/20 02/14/21 Mary Kate Herrera PA-C [address] [place] [address] Assigned PCP 02/15/[address] [facility] [address] [place] [address] 07/20/22 Mary Kate Herrera PA-C [address] [place] [address] Assigned Pain Medication Provider 01/01/23 03/02/23 documented as of this encounter
--- OUTSIDE RECORDS SUMMARY | 2023-09-13 00:38 | XMS_ITS | Encounter Summary ---
Author Organization [place] Address [address] [facility] [place] [address] Care Team Providers Care Apn Name Role Phone Tracy Dorado MD Primary Care Provider + Tracy Dorado MD Unavailable + Tracy Dorado MD Unavailable + Jasvir Montoya MD Unavailable + [phone] Kathy Ross PA-C Unavailable +[phone] [facility] Primary Ca re Provider + Jasvir Montoya MD Unavailable + Kathy Ross PA-C Unavailable +[phone] Tracy Dorado MD Unavailable +838 [facility] Primary Care Pro vider + Jasvir Montoya MD Unavailable + [phone] Mary Kate Herrera PA-C Unavailable Randal Joe MD Unavailable +[phone] Mary Kate Herrera PA-C Unavailable Reason for Visit * Reason Onset Date Comments Refill Request 02/19/2015 Trazodone 50 mg tab, Fluoxetine Hcl 20 MG Capsule Encounter Details Date Type Department Care Team (Late st Contact Info) Description 02/19/[address], [address] [place] [address] [place] [address] [place] [address] Refill Request (Trazodone 50 mg tab, Fluoxetine [...] never returned calls and has read her Links Global message Alison Messer RN, BSN ESSOR OF CRIMINAL JUSTICE * Telephone Encounter - Alison Messer RN - 02/24/2015 8:52 AM CST Neomatrix sent Alison Messer RN BSN ESSOR OF CRIMINAL JUSTICE * Telephone Encounter - Myah Figueroa RN - 02/20/2015 3:49 PM CST Left message with male to have patient call the clinic back. Needs an appointment. Myah Figueroa RN ESSOR OF CRIMINAL JUSTICE * Telephone Encounter - Tracy Dorado MD - 02/20/2015 12:37 PM PROFESSOR OF CRIMINAL JUSTICE Due for appointment will refill ESSOR OF CRIMINAL JUSTICE * Telephone Encounter - Myah Figueroa RN - 02/19/2015 1:15 PM CST Routing refill request to provider for review/approval because: Patient needs to be seen because: Needs to be seen every 6 months. Myah Figueroa RN ESSOR OF CRIMINAL JUSTICE * Telephone Encounter - Fatoumata Parsons - [...] # refills: 0 Last Office Visit with [facility] primary care provider: 05/17/14 Last PHQ-9 score on record= PHQ-9 SCORE 11/18/2014 Total Score - Total Score 2 AST 21 12/14/2013 ALT 39 12/14/2013 Fluoxetine HCL 20 MG caps Last Written Prescription Date: 11/18/14 Last Fill Quantity: 90, # refills: 0 Last Office Visit with [facility] primary care provider: 05/17/2014 Last PHQ-9 score on record= PHQ-9 SCORE 11/18/2014 Total Score - Total Score 2 ESSOR OF CRIMINAL JUSTICE documented in this encounter Plan of Treatment Not on file documented as of this encounter Visit Diagnoses Diagnosis Anxiety- Primary Anxiety state, unspecified documented in this encounter Additional Health Concerns Infection Onset Date Last Indicated Resolved Time Rule Out COVID-19 01/19/2021 01/19/2021 01/19/2021 3:03 PM PROFESSOR OF CRIMINAL JUSTICE Rule Out C-difficile 05/09/2021 05/10/2021 022 1:18 PM CDT C-difficile 05/10/2021 05/10/2021 06/09/2021 11:4 1 PM CDT Assessment Noted Time PHQ-9 Depression Total Score: 2 10/13/20 15 7:27 AM CDT documented as of this encounter Care Teams Apn Relationship Specialty Start Date End Date Tracy Dorado MD PCP - General Family Practice 11/02/12 01/07/19 [place] [address] [address] [address] PCP - Assigned PCP 02/13/17 04/11/18 [facility] [address] [address] [address] PCP - General 01/08/19 03/01/[address] [address] PCP - General 03/02/20 [place] [address] [address] [address] Assigned PCP 02/13/17 08/19/18 [place] [address] [address] [address] Assigned PCP 08/20/18 10/21/18 Kathy Ross PA-C 480 [facility] [address] [place] [address] Assigned PCP 10/22/18 08/18/19 [place] [address] [address] [address] Assigned PCP 08/19/19 08/25/19 Kathy Ross PA-C [address] [place] [address] Assigned PCP 08/26/19 10/20/19 [place] [address] [place] [place] [address] Assigned PCP 10/21/19 07/02/20 [place] [address] [address] [place] [address] Assigned PCP 07/03/20 02/14/21 Mary Kate Herrera PA-C [address] [place] [address] Assigned PCP 02/15/21 Randal Joe MD [facility] [address] [place] [address] 07/20/22 Mary Kate Herrera PA-C [address] [place] [address] Assigned Pain Medication Provider 01/01/23 03/02/23 documented as of this encounter
--- OUTSIDE RECORDS SUMMARY | 2023-09-13 00:38 | XMS_ITS | Encounter Summary ---
Author Organization [place] Address [address] [facility] [place] [address] Care Team Providers Care Chief Clerk Name Role Phone Mary Clark MD Primary Care Provider [phone] Tracy Dorado MD Primary Care Provider Tracy Dorado MD Unavailable +[phone] Tracy Dorado MD Unavailable +647 Jasvir Montoya MD Unavailable + 142 Kathy Ross PA-C Unavailable +[phone] [facility] Primary Ca re Provider + Jasvir Montoya MD Unavailable + 925 Kathy Ross PA-C Unavailable +[phone] Tracy Dorado MD Unavailable +[phone] [facility] Primary Care Pro vider Jasvir Montoay MD Unavailable + [phone] Mary Kate Herrera PA-C Unavailable Randal Joe MD Unavailable +[phone] Mary Kate Herrera PA-C Unavailable Encounter Details Date Type Department Care Team (Late st Contact Info) Description 12/11/2010 MyC Medical Advice [facility] [address] [place] [address] [place] [address] [place] [address] Social History Tobacco Use Types Packs/Day Years [...] Out COVID-19 01/19/2021 01/19/2021 01/19/2021 3:03 PM SAMPLER AND TEST PREPARER Rule Out C-difficile 05/09/2021 05/10/2021 022 1:18 PM CDT C-difficile 05/10/2021 05/10/2021 06/09/2021 11:4 1 PM CDT documented as of this encounter Care Teams Chief Clerk Relationship Specialty Start Date End Date Mary Clark MD PCP - General 06/26/04 11/01/12 Tracy Dorado MD PCP - General Family Practice 11/02/12 01/07/19 [place] [address] [address] [address] PCP - Assigned PCP 02/13/17 04/11/18 [facility] Allie Mendez [facility] [address] [address] [address] PCP - General 01/08/19 03/01/20 [facility], [address] [address] PCP - General 03/02/20 [place] [address] [place] [address] Assigned PCP 02/13/17 08/19/18 [place] [address] [place] [address] Assigned PCP 08/20/18 10/21/18 Kathy Ross PA-C 480 [facility] 96 [place] [address] Assigned PCP 10/22/18 08/18/19 [place] [address] [place] [address] Assigned PCP 08/19/19 08/25/19 Kathy Ross PA-C 480 [facility] 96 [place] [address] Assigned PCP 08/26/19 10/20/19 [place] [address] [place] [address] Assigned PCP 10/21/19 07/02/20 [place] [address] [place] [address] Assigned PCP 07/03/20 02/14/21 Mary Kate Herrera PA-C [address] [place] [address] Assigned PCP 02/15/21 Randal Joe MD [facility] [address] [place] [address] 07/20/22 Mary Kate Herrera PA-C [address] [place] [address] Assigned Pain Medication Provider 01/01/23 03/02/23 documented as of this encounter
--- OUTSIDE RECORDS SUMMARY | 2023-09-13 00:38 | XMS_ITS | Encounter Summary ---
Author Organization [place] Address [address] [facility] [address] Care Team Providers Care Director Employee Safety And Health Name Role Phone Tracy Dorado MD Primary Care Provider + Tracy Dorado MD Unavailable + Tracy Dorado MD Unavailable +[phone] Jasvir Montoya MD Unavailable + [phone] Kathy Ross PA-C Unavailable +[phone] [facility] Primary Ca re Provider + Jasvir Montoya MD Unavailable + Kathy Ross PA-C Unavailable +[phone] Tracy Dorado MD Unavailable +079 [facility] Primary Care Pro vider + Jasvir Montoya MD Unavailable + [phone] Mary Kate Herrera PA-C Unavailable Randal Joe MD Unavailable +[phone] Mary Kate Herrera PA-C Unavailable Reason for Visit * Reason Onset Date Comments Medication Request 06/09/2017 Control for painful periods Encounter Details Date Type Department Care Team (Late st Contact Info) Description 06/09/2017 MyC Medical Advice [address], [address] [place] [address] [place] [address] [address] [address] Medication Request ( Control for pain... Social [...] Out COVID-19 01/19/2021 01/19/2021 01/19/2021 3:03 PM PROTECTIVE SIGNAL OPERATIONS SUPERVISOR Rule Out C-difficile 05/09/2021 05/10/2021 022 1:18 PM CDT C-difficile 05/10/2021 05/10/2021 06/09/2021 11:4 1 PM CDT Assessment Noted Time PHQ-9 Depression Total Score: 0 12/04/19 17 11:09 AM CDT documented as of this encounter Care Teams Director Employee Safety And Health Relationship Specialty Start Date End Date Tracy Dorado MD PCP - General Family Practice 11/02/12 01/07/19 [place] [address] [address] [address] PCP - Assigned PCP 02/13/17 04/11/18 [facility] - Allie Mendez [facility] [address] [address] [address] PCP - General 01/08/19 03/01/20 [facility], [address] [address] PCP - General 03/02/20 [place] [address] [place] [address] Assigned PCP 02/13/17 08/19/18 [place] [address] [place] [address] Assigned PCP 08/20/18 10/21/18 Kathy Ross PA-C 480 [facility] 96 [place] [address] Assigned PCP 10/22/18 08/18/19 [place] [address] [place] [address] Assigned PCP 08/19/19 08/25/19 Kathy Ross PA-C 480 [facility] 96 [place] [address] Assigned PCP 08/26/19 10/20/19 [place] [address] [place] [address] Assigned PCP 10/21/19 07/02/20 [place] [address] [place] [address] Assigned PCP 07/03/20 02/14/21 Mary Kate Herrera PA-C [address] [place] [address] Assigned PCP 02/15/[address] [facility] [address] [place] [address] 07/20/22 Mary Kate Herrera PA-C [address] [place] [address] Assigned Pain Medication Provider 01/01/23 03/02/23 documented as of this encounter
--- OUTSIDE RECORDS SUMMARY | 2023-09-13 00:38 | XMS_ITS | Encounter Summary ---
Author Organization [place] Address [address] [facility] [place] [address] Care Team Providers Care Maintenance Shop Technician Name Role Phone Tracy Dorado MD Primary Care Provider + Tracy Dorado MD Unavailable + Jasvir Montoya MD Unavailable + Kathy Ross PA-C Unavailable +[phone] [facility] Primary Ca re Provider + Jasvir Montoya MD Unavailable + Kathy Ross PA-C Unavailable +[phone] Tracy Dorado MD Unavailable +214 [facility] Primary Care Pro vider + Jasvir Montoya MD Unavailable + [phone] Mary Kate Herrera PA-C Unavailable Randal Joe MD Unavailable +[phone] Mary Kate Herrera PA-C Unavailable Reason for Visit * Reason Onset Date Comments MyChart Communication 08/04/2018 Encounter Details Date Type Department Care Team (Latest Contact Info) Description 08/04/2018 MyC Medical Advice [facility] [address] [place] [address] Guillermina Carmen RN MyChart Communication Social History [...] Out COVID-19 01/19/2021 01/19/2021 01/19/2021 3:03 PM STRATEGIC SOURCING SPECIALIST Rule Out C-difficile 05/09/2021 05/10/2021 022 1:18 PM CDT C-difficile 05/10/2021 05/10/2021 06/09/2021 11:4 1 PM CDT Assessment Noted Time PHQ-9 Depression Total Score: 3 06/19/19 18 2:19 PM CDT documented as of this encounter Care Teams Maintenance Shop Technician Relationship Specialty Start Date End Date Tracy Dorado MD PCP - General Family Practice 11/02/12 01/07/[address] [facility] [address] [address] [address] PCP - General 01/08/19 03/01/20 [facility] [address] [place] [address] PCP - General 03/02/20 [place] [address] [address] [address] Assigned PCP 02/13/17 08/19/18 [place] [address] [place] [address] Assigned PCP 08/20/18 10/21/18 Kathy Ross PA-C 480 [facility] 96 [place] [address] Assigned PCP 10/22/18 08/18/19 [place] [address] [place] [address] Assigned PCP 08/19/19 08/25/19 Kathy Ross PA-C 480 [facility] 96 [place] [address] Assigned PCP 08/26/19 10/20/19 [place] [address] [place] [address] Assigned PCP 10/21/19 07/02/20 [place] [address] [place] [address] Assigned PCP 07/03/20 02/14/21 Mary Kate Herrera PA-C [address] [place] [address] Assigned PCP 02/15/21 Randal Joe MD [facility] [address] [place] [address] 07/20/22 Mary Kate Herrera PA-C [address] [place] [address] Assigned Pain Medication Provider 01/01/23 03/02/23 documented as of this encounter
--- OUTSIDE RECORDS SUMMARY | 2023-09-13 00:38 | XMS_ITS | Encounter Summary ---
Author Organization [place] Address [address] [facility] [place] [address] Care Team Providers Care Photograph Developer Name Role Phone Mary Clark MD Primary Care Provider [phone] Tracy Dorado MD Primary Care Provider Tracy Dorado MD Unavailable +[phone] Tracy Dorado MD Unavailable +[phone] Jasvir Montoya MD Unavailable + 177 Kathy Ross PA-C Unavailable +[phone] [facility] Primary Ca re Provider + Jasvir Montoya MD Unavailable + 416 Kathy Ross PA-C Unavailable +[phone] Tracy Dorado MD Unavailable +[address] [facility] Primary Care Pro vider Jasvir Montoya MD Unavailable + 531 Mary Kate Herrera PA-C Unavailable Randal Joe MD Unavailable +[phone] Mary Kate Herrera PA-C Unavailable Encounter Details Date Type Department Care Team (Late st Contact Info) Description 07/10/2012 MyC Medical Advice [address], [address] [place] [address] Mela Cm Social History Tobacco [...] Out COVID-19 01/19/2021 01/19/2021 01/19/2021 3:03 PM SKI BASE TRIMMER Rule Out C-difficile 05/09/2021 05/10/2021 022 1:18 PM CDT C-difficile 05/10/2021 05/10/2021 06/09/2021 11:4 1 PM CDT documented as of this encounter Care Teams Photograph Developer Relationship Specialty Start Date End Date Mary Clark MD PCP - General 06/26/04 11/01/12 Tracy Dorado MD PCP - General Family Practice 11/02/12 01/07/19 [place] [address] [address] [address] PCP - Assigned PCP 02/13/17 04/11/18 [facility] [address] [address] [address] PCP - General 01/08/19 03/01/20 [facility] [address] [place] [address] PCP - General 03/02/20 [place] [address] [place] [address] Assigned PCP 02/13/17 08/19/18 [place] [address] [place] [address] Assigned PCP 08/20/18 10/21/18 Kathy Ross PA-C [address] [facility] [place] [address] Assigned PCP 10/22/18 08/18/19 [place] [address] [place] [address] Assigned PCP 08/19/19 08/25/19 Kathy Ross PA-C [address] [facility] [place] [address] Assigned PCP 08/26/19 10/20/19 [place] [address] [place] [address] Assigned PCP 10/21/19 07/02/20 [place] [address] [place] [address] Assigned PCP 07/03/20 02/14/21 Mary Kate Herrera PA-C [address] [place] [address] Assigned PCP 02/15/21 Randal Joe MD [facility] [address] [place] [address] 07/20/22 Mary Kate Herrera PA-C [address] [place] [address] Assigned Pain Medication Provider 01/01/23 03/02/23 documented as of this encounter
--- OUTSIDE RECORDS SUMMARY | 2023-09-13 00:38 | XMS_ITS | Encounter Summary ---
Author Organization [place] Address [address] [place] [address] Care Team Providers Care Cooker Process Cheese Name Role Phone Tracy Dorado MD Primary Care Provider + Tracy Dorado MD Unavailable + Tracy Dorado MD Unavailable + Jasvir Montoya MD Unavailable + Kathy Ross PA-C Unavailable +[phone] [facility] Primary Ca re Provider + Jasvir Montoya MD Unavailable + Kathy Ross PA-C Unavailable +0 Tracy Dorado MD Unavailable + [facility] Primary Care Pro vider + Jasvir Montoya MD Unavailable + Mary Kate Herrera PA-C Unavailable Randal Joe MD Unavailable +[phone] Mary Kate Herrera PA-C Unavailable Encounter Details Date Type Department Care Team (Late st Contact Info) Description 01/06/2016 [facility] [id number] [place] [phone] Guillermina Carmen RN Social History Tobacco Use [...] Out COVID-19 01/19/2021 01/19/2021 01/19/2021 3:03 PM POINT OF CARE SPECIALIST Rule Out C-difficile 05/09/2021 05/10/2021 022 1:18 PM CDT C-difficile 05/10/2021 05/10/2021 06/09/2021 11:4 1 PM CDT Assessment Noted Time PHQ-9 Depression Total Score: 2 05/06/19 17 7:06 AM CDT documented as of this encounter Care Teams Cooker Process Cheese Relationship Specialty Start Date End Date Tracy Dorado MD PCP - General Family Practice 11/02/12 01/07/19 [place] [address] [address] [address] PCP - Assigned PCP 02/13/17 04/11/18 [facility] [address] [address] [address] PCP - General 01/08/19 03/01/20 [facility] [address] [place] [address] PCP - General 03/02/20 [place] [address] [place] [address] Assigned PCP 02/13/17 08/19/18 [place] [address] [place] [address] Assigned PCP 08/20/18 10/21/18 Kathy Ross PA-C [address] [place] [address] Assigned PCP 10/22/18 08/18/19 [place] [address] [place] [address] Assigned PCP 08/19/19 08/25/19 Kathy Ross PA-C 480 [facility] [address] [place] [address] Assigned PCP 08/26/19 10/20/19 [place] [address] [place] [address] Assigned PCP 10/21/19 07/02/20 [place] [address] [place] [address] Assigned PCP 07/03/20 02/14/21 Mary Kate Herrera [place]-C [address] [place] [address] Assigned PCP 02/15/21 Randal Joe MD [facility] [address] [place], [place] [address] 07/20/22 Mary Kate Herrera PA-C [address] [place], [place] [address] Assigned Pain Medication Provider 01/01/23 03/02/23 documented as of this encounter
--- OUTSIDE RECORDS SUMMARY | 2023-09-13 00:38 | XMS_ITS | Encounter Summary ---
Author Organization [place] Address [address] [facility] [address] Care Team Providers Care Wholesale Account Manager Name Role Phone Mary Clark MD Primary Care Provider +[phone] Tracy Dorado MD Primary Care Provider Tracy Dorado MD Unavailable +[phone] Tracy Dorado MD Unavailable +575 Jasvir Montoya MD Unavailable + 782 Kathy Ross PA-C Unavailable +[phone] [facility] Primary Ca re Provider + Jasvir Montoya MD Unavailable + 949 Kathy Ross PA-C Unavailable +[phone] Tracy Dorado MD Unavailable +837 [facility] Primary Care Pro vider Jasvir Montoya MD Unavailable + [phone] Mary Kate Herrera PA-C Unavailable Randal Joe MD Unavailable +[phone] Mary Kate Herrera PA-C Unavailable Encounter Details Date Type Department Care Team (Late st Contact Info) Description 05/03/2011 MyC Medical Advice [facility] [id number] [place] [phone] Mary Clark MD [address] [place] [address] Social History Tobacco Use Types Packs/Day Years [...] Out COVID-19 01/19/2021 01/19/2021 01/19/2021 3:03 PM HOUSEKEEPER NANNY Rule Out C-difficile 05/09/2021 05/10/2021 022 1:18 PM CDT C-difficile 05/10/2021 05/10/2021 06/09/2021 11:4 1 PM CDT documented as of this encounter Care Teams Wholesale Account Manager Relationship Specialty Start Date End Date Mary Clark MD PCP - General 06/26/04 11/01/12 Tracy Dorado MD PCP - General Family Practice 11/02/12 01/07/19 [place] [address] [address] [address] PCP - Assigned PCP 02/13/17 04/11/18 [facility]ie Mendez [facility] [address] [address] [address] PCP - General 01/08/19 03/01/[address] [address] PCP - General 03/02/20 [place] [address] [place] [address] Assigned PCP 02/13/17 08/19/18 [place] [address] [place] [address] Assigned PCP 08/20/18 10/21/18 Kathy Ross PA-C [address] [address] Assigned PCP 10/22/18 08/18/19 [place] [address] [address] [address] Assigned PCP 08/19/19 08/25/19 Kathy Ross PA-C 480 [facility] 96 [place] [address] Assigned PCP 08/26/19 10/20/19 [place] [address] [place] [address] Assigned PCP 10/21/19 07/02/20 [place] [address] [place] [address] Assigned PCP 07/03/20 02/14/21 Mary Kate Herrera PA-C [address] [place] [address] Assigned PCP 02/15/21 Randal Joe MD [facility] [address] [place] [address] 07/20/22 Mary Kate Herrera PA-C [address] [place] [address] Assigned Pain Medication Provider 01/01/23 03/02/23 documented as of this encounter
--- OUTSIDE RECORDS SUMMARY | 2023-09-13 00:38 | XMS_ITS | Encounter Summary ---
Author Organization [facility] Address [address] [facility] [place] [address] Care Team Providers Care Lapel Padder Name Role Phone Tracy Dorado MD Primary Care Provider + Tracy Dorado MD Unavailable + Tracy Dorado MD Unavailable + Jasvir Montoya MD Unavailable + Kathy Ross PA-C Unavailable [phone] [facility] Primary Ca re Provider + Jasvir Montoya MD Unavailable + Kathy Ross PA-C Unavailable [phone] Tracy Dorado MD Unavailable +[phone] [facility] Primary Care Pro vider + Jasvir Montoya MD Unavailable + [phone] Mary Kate Herrera PA-C Unavailable Randal Joe MD Unavailable [phone] Mary Kate Herrera PA-C Unavailable Reason for Visit * Reason Onset Date Comments Medication Refill 05/30/2017 traZODone (CHIARA YREL) 50 MG tablet Encounter Details Date Type Department Care Team (Late st Contact Info) Description 05/29/[address], [address] [place] [address] [place] [address] [place] [address] Medication Refill (traZODone (DESYREL) 50 MG tablet) [...] 05/31/2017 11:02 AM CDT Prescription approved per [facility] Refill Protocol. Myah Figueroa RN * Telephone [...] Out COVID-19 01/19/2021 01/19/2021 01/19/2021 3:03 PM RELASTER Rule Out C-difficile 05/09/2021 05/10/2021 022 1:18 PM CDT C-difficile 05/10/2021 05/10/2021 06/09/2021 11:4 1 PM CDT Assessment Noted Time PHQ-9 Depression Total Score: 0 12/04/19 17 11:09 AM CDT documented as of this encounter Care Teams Lapel Padder Relationship Specialty Start Date End Date Tracy Dorado MD PCP - General Family Practice 11/02/12 01/07/19 [place] [address] [address] [address] PCP - Assigned PCP 02/13/17 04/11/18 [facility] [address] [address] [address] PCP - General 01/08/19 03/01/[address] [address] PCP - General 03/02/20 [place] [address] [address] [address] Assigned PCP 02/13/17 08/19/18 [place] [address] [place] [address] Assigned PCP 08/20/18 10/21/18 Kathy Ross PA-C [address] [facility] [place] [place] [address] Assigned PCP 10/22/18 08/18/19 [place] [address] [place] [address] Assigned PCP 08/19/19 08/25/19 Kathy Ross PA-C [address] [facility] [place] [place] [address] Assigned PCP 08/26/19 10/20/19 [place] [address] [place] [address] Assigned PCP 10/21/19 07/02/20 [place] [address] [place] [address] Assigned PCP 07/03/20 02/14/21 Mary Kate Herrera [place]-C [address] [place] [address] Assigned PCP 02/15/21 Randal Joe [facility] [address] [place] [address] 07/20/22 Mary Kate Herrera PA-C [address] [place] [address] Assigned Pain Medication Provider 01/01/23 03/02/23 documented as of this encounter
--- OUTSIDE RECORDS SUMMARY | 2023-09-13 00:38 | XMS_ITS | Clinical Summary ---
[facility] Address [address] [place] [address] Care Team Providers Care Separator Inserter Name Role Phone Randal Joe MD Primary Care Provider [phone] Source Comments You are receiving this document as you are listed as the primary care provider,follow-up provider, or the patient has been referred to you for consultation.This is in compliance with the Medicare and[facility] Memorial Hospitalcaid EHR Incentive Program,which states Providers who transition their patient to another setting of careor provider of care or refers their patient to another provider of care shouldprovide summary care record for each transition of care or referral. [employer] CenterSmart[employer] Networks Allergies Active Allergy Reactions Criticality Noted Date [...] for Nausea. 30 Tablet 1 09/01/2023 Active glycerin pediatric suppository Insert 1 Suppository rectally. 09/01/2023 Active FLUoxetine (PROZAC) 20 MG capsule Take 1 Capsule (20 mg) by mouth daily. 90 Capsule 3 09/02/2023 5 Active famotidine (PEPCID) 10 MG tablet Take 1 Tablet (10 mg) by mouth. 07/18/2023 4 nitrofurantoin monohydrate macrocrystal (MACROBID) 100 MG capsule Take 1 Capsule (100 mg) by mouth. 08/22/2023 4 famotidine (PEPCID) 20 MG tablet Take 1 Tablet (20 mg) by mouth. 09/01/2023 4 Active Problems Problem Noted Date Diagnosed Date Supervision of high risk in second [facility] 07/07/2023 Nausea/vomiting in 07/07/2023 Prolonged Q-T interval on ECG 05/09/2021 Chronic migraine without aur a without status migrainosus, not intractable 07/25/2015 Seronegative arthritis 05/17/2014 Vitamin D deficiency 05/17/2014 Overview: Problem list name updated by automated process. Provider to review Anxiety 07/17/2012 Mild major depression 06/03/2010 Panic disorder without agoraphobia 06/03/2005 Overview: LW Onset: [id number] ; Panic Disorder w/o Agoraphobia Estimated Date [...] Date Type Department Care Team Description 09/12/2023 Nurse Triage [facility] [address] [facility], [address] [place] [phone] Miranda Metzger, DO Concerns 09/09/2023 Nurse Triage [place] [address] Obstetrics/Gynecol ogy [address] [place] [phone] Michaela Lopez MD Concerns; CONSTIPATION 09/08/2023 Nurse Triage [facility] [address] [place] [address] Randal Joe MD Constipation 09/08/2023 Nurse Triage [facility] [address] [place] [address] Randal Joe MD BOWEL PROBLEMS; Follow-up 09/06/2023 Telephone [place] [address] Obstetrics/Gynecol ogy [address] [place] [phone] Michaela Lopez MD Forms 09/06/2023 Nurse Triage [place] [address] Obstetrics/Gynecol ogy [address] [place] [phone] Michaela Lopez MD Concerns 09/04/2023 Telephone [facility] [address] [place] [address] Randal Joe MD Medication Questions 09/02/2023 1:50 PM CDT Lab Visit [address] [phone] Anxiety in in second trimester, antepartum (HRC) 09/02/2023 1:00 PM CDT Routine [place] [address] Obstetrics/Gynecol ogy [address] [place] [address] Michaela Lopez MD Follow-up (Follow up ER 08/31 visit) 09/02/2023 Telephone [place] [address] Obstetrics/Gynecol ogy [address] [place] [phone] Michaela Lopez MD 09/01/2023 4:00 PM CDT Routine [place] [address] Obstetrics/Gynecol ogy [address] [place] [phone] Michaela Lopez MD Concerns 09/01/2023 8:30 AM CDT Office Visit [address] [phone] Dora Gates, PA-C Constipation, unspecified constipation type (Primary Dx) 08/30/2023 Nurse Triage [address] [phone] Randal Joe MD Abdominal Pain 08/29/2023 Telephone [facility]ATER [facility] [address] [place] [address], [address] [phone] Maria Dolores Del Real APRN, EXHIBITS MANAGER Forms 08/28/2023 Nurse Triage [facility] [address] [place] [address] Randal Joe MD Constipation 08/26/2023 3:30 PM CDT Routine [facility] [address] [place] [address], [address] [phone] Maria Dolores Del Real APRN, EXHIBITS MANAGER CONSTIPATION 08/24/2023 Telephone [facility]WATER COMMISSION[facility] [phone] [place] [address], [address] [phone] Maria Dolores Del Real APRN, EXHIBITS MANAGER Medication Questions 08/23/2023 Nurse Triage [facility] [address] [place] [address] Randal Joe MD Medication Questions 08/22/2023 Nurse Triage [facility]-WATER COMMISSIONER [address] [place] [phone] Maria Dolores Del Real, PEDIATRIC CRITICAL CARE NURSE, EXHIBITS MANAGER Concerns (constipation) 08/19/2023 Telephone [facility]-WATER COMMISSIONER [address] [place] [phone] Maria Dolores Del Real, PEDIATRIC CRITICAL CARE NURSE, EXHIBITS MANAGER MEDICATION, NOS 08/16/2023 Telephone [facility]-WATER COMMISSIONER [address] [place] [phone] Maria Dolores Del Real, PEDIATRIC CRITICAL CARE NURSE, EXHIBITS MANAGER Concerns 08/15/2023 8:45 AM CDT Routine [facility]-WATER COMMISSIONER [address] [place] [phone] Maria Dolores Del Real, PEDIATRIC CRITICAL CARE NURSE, EXHIBITS MANAGER ANXIETY; Routine Visit 08/12/2023 E-Visit [facility]-WATER COMMISSIONER [address] [place] [phone] Mychart, Generic Provider 08/09/2023 Telephone [facility]-WATER COMMISSIONER [address] [place] [phone] Sofiya Vo MD Medication Questions 08/08/2023 Nurse Triage [facility] [address] [place] [address] Randal Joe MD Concerns; Stool Color Change 08/04/2023 9:00 AM CDT Lab Visit [facility] [address] [place] [phone] Urinary frequency 08/04/2023 8:30 AM CDT Routine [facility]-WATER COMMISSIONER [address] [place] [address] [place] [phone] Sofiya Vo MD Routine Visit 08/04/2023 Orders Only [facility] ProviderRick MD 08/04/2023 Telephone [facility] [address] [place] [phone] Maria Dolores Del Real APRN, EXHIBITS MANAGER CHANGING APPOINTMENTS 08/01/2023 8:30 AM CDT Ancillary Procedure [facility] [address] [place] [phone] Maria Dolores Del Real APRN, EXHIBITS MANAGER Supervision of high risk in first trimester; Primigravida of advanced maternal age in first trimester 07/30/2023 Nurse Triage [facility] Nurse Line [address] [place] [address] Randal Joe MD BLEEDING, DURING 07/28/2023 Telephone [facility]-WATER COMMISSIONER [address] [place] [phone] Sofiya Vo MD Lab/Rad Request 07/27/2023 11:10 AM CDT Lab Visit [facility] [address] [place] [phone] Dysuria 07/27/2023 10:45 AM CDT Routine [facility] Services-WATER COMMISSIONER [address] [place] [phone] Sofiya Vo MD Vaginal Discharge 07/27/2023 Orders Only [facility] DE[facility] ProviderRick MD 07/26/2023 [facility] [address] [place] [phone] Maria Dolores Del Real APRN, EXHIBITS MANAGER Forms 07/25/2023 Nurse Triage [facility] [address] [place] [phone] Maria Dolores Del Real APRN, SEBASTIÁN Concerns 07/22/2023 Telephone [facility]WATER COMMISSION[facility] [address] [place] [address], [address] [phone] Maria Dolores Del Real APRN, EXHIBITS MANAGER Medication Questions 07/21/2023 11:45 AM CDT Routine [facility] [address] [place] [address], [address] [phone] Maria Dolores Del Real APRN, EXHIBITS MANAGER Follow-up 07/16/2023 Nurse Triage [facility] [address] [place] [address] Randal Joe MD [facility] 07/13/2023 11:55 AM CDT E-Visit [facility] COMMISS[facility] [address] [place] [phone] Maria Dolores Del Real APRN, CNP Chief Comp: QUESTIONS, GENERAL 07/13/2023 Telephone [facility]ATER COMMISS[facility] [address] [place] [address], [address] [phone] Maria Dolores Del Real APRN, EXHIBITS MANAGER Questions For The Nurse 07/13/2023 Telephone [facility]ATER COMMISS[facility] [address] [place] [address], [address] [phone] Maria Dolores Del Real APRN, EXHIBITS MANAGER Appointment Questions 07/11/2023 [facility] [address] [place] [address] Mychart, Generic Provider 07/09/2023 Nurse Triage [facility] [address] [place] [address] Randal Joe MD [facility] 07/08/2023 8:30 AM CDT E-Visit [facility]WATER COMMISSION[facility] [address] [place] [phone] Sofiya Vo MD Chief Comp: Forms/Letter 07/08/2023 Telephone [facility] [address] [place] [address] Randal Joe MD Concerns 07/07/2023 9:40 AM CDT Lab Visit [facility] [address] [place] [address], [address] [phone] Supervision of high risk in first trimester; Primigravida of advanced maternal age in first trimester 07/07/2023 8:30 AM CDT Initial [facility]-WATER COMMISSIONER [address] [place] [phone] Maria Dolores Del Real APRN, EXHIBITS MANAGER INITIAL VISIT 07/07/2023 Telephone [facility] [address] [place] [address] Randal Joe MD LAB RESULTS 07/07/2023 Telephone [facility]-WATER COMMISSIONER [address] [place] [phone] Maria Dolores Del Real APRN, EXHIBITS MANAGER Forms 06/27/2023 Telephone [facility]-WATER COMMISSIONER [address] [place] [address], [address] [phone] Sofiya Vo MD Concerns 06/25/2023 Nurse Triage [facility] [address] [place] [address] Randal Joe MD Concerns 06/24/2023 11:30 AM CDT Phone Visit [facility] Obstetrics/Gynecol ogy [address] [place] [address] Nurse Intake, [id number] Ob Missed menses (Primary Dx) 06/24/2023 E-Visit [facility] Obstetrics/Gynecol ogy [address] [place] [address] Mychart, Generic Provider 06/22/2023 8:00 AM CDT Ancillary Procedure [facility] Services-Ultrasoun d [address] [place] [address], [address] [place] [phone] Sofiya Vo MD Early stage of 06/22/2023 Telephone [facility]-WATER COMMISSIONER [address] [place] [address], [address] [phone] Sofiya Vo MD Ultrasound Results 06/22/2023 Telephone [facility]-WATER COMMISSIONER [address] [place] [address], [address] [phone] Sofiya Vo MD Concerns 06/15/2023 E-Visit [facility]-WATER COMMISSIONER [address] [place] [address], [address] [phone] Mychart, Generic Provider 06/15/2023 [facility] Obstetrics/Gynecol [address] [address] Maria Dolores Del Real, PEDIATRIC CRITICAL CARE NURSE, EXHIBITS MANAGER Concerns; LAB TESTS, NOS 06/13/2023 E-Visit [facility]-WATER COMMISSIONER [address] [place] [address], [address] [phone] Mychart, Generic Provider 06/13/2023 Telephone [facility]-WATER COMMISSIONER [address] [place] [address], [address] [phone] Sofiya Vo MD LAB RESULTS; CONSTIPATION from Last 3 Months Immunizations Name Administration Dates Next Due HepA-HepB ([place], 18+ yrs) 01/22/2010,07/16/19 10,05/14/2009 Influenza IIV4 (Quadrivalent) 0.5mL (77450) 12/08 Influenza, Unspecified Formulation 02/13/2021 TB Skin [...] 12.8 oz) 024 12:58 PM CDT Height 171.5 cm (5' 7.5) 09/01/2023 8:32 AM CDT Body Mass Index 28.36 09/01/2023 8:32 AM CDT Plan of Treatment Upcoming Encounters Date Type Department Care Team (Late st Contact Info) Description 09/14/2023 3:00 PM CDT Appointment [facility] COMMISS[facility] [address] [facility], [facility] [address] [place] [phone] [place] [address] [place] [address] 09/19/2023 10:00 AM CDT Appointment [facility] [address] [place] [address], [facility] [address] [place] [phone] Maria Dolores Del Real, PEDIATRIC CRITICAL CARE NURSE, EXHIBITS MANAGER [address] [place] [phone] 09/19/2023 11:00 AM CDT Appointment [facility] [address] [place] [address], [facility] [address] [place] [phone] Shaggy Smith MD [address] [place] [address] [address] [place], [place] [address] 10/13/2023 9:00 AM CDT Appointment [facility]-WATER COMMISSION[facility] [address] [place] [address], [address] [phone] Maria Dolores Del Real, PEDIATRIC CRITICAL CARE NURSE, EXHIBITS MANAGER [address]uevar[address] [place], [place] [phone] Health Maintenance Due Date Last Done Comments [...] AM CDT Urinary frequency ULTRASOUND SC 08/04/2023 [facility] OB FIRST TRIMESTER Routine 08/01/2023 8:59 AM [...] 06/22/2023 8:16 AM CDT Early stage of PAP TEST Routine 03/26/2022 11:10 AM [employer] Screening for malignant neoplasm of cervix from Last 3 Months or Most Recently Relevant to Health Maintenance Results * (ABNORMAL) Urine Culture (09/02/2023 1:48 PM CDT) Only the most recent of2 resultswithin the time period is included. Urine Culture Growth(A) 09/04/2023 7:45 AM CDT [facility] Urine Culture <10,000 CFU/mL Mixed Bacterial Growth 09/04/2023 7:45 AM CDT [facility] Comment: Mixed Bacterial Growth indicates the specimen is likely contaminated at collection with urogenital and/or fecal nicole. The presence of organisms at <10,000 cfu/ml in culture, UTI unlikely. Urine URINE SPECIMEN COLLECTION, CLEAN CATCH / Unknown Non-blood Collection / Unknown 09/02/2023 1:48 PM CDT 09/02/2023 1:48 PM CDT Michaela Lopez MD LAB_[address] [address], [facility] * (ABNORMAL) Urinalysis Routine, Micro/Culture if Pos: Clean Catch (09/02/2023 1:48 PM CDT) Only the most recent of3 resultswithin the time period is included. Urine Culture Comment Urinalysis results do not meet criteria for urine culture reflex. 09/02/2023 1:50 PM CDT [facility] Urine Color Yellow 09/02/2023 1:50 PM CDT [facility] Urine Clarity Clear Clear 09/02/2023 1:50 PM T [facility] Specific [place], Urine >=1.030(A) 1.005 - 1.030 09/02/2023 1:50 PM T [facility] PH Urine 6.0 5.0 - 8.0 09/02/2023 1:50 PM CDT [facility] Protein, Urine Qual (mg/dL) Negative Neg/Trace 09/02/2023 1:50 PM T [facility] Glucose Urine Qual (mg/dL) Negative Negative 09/02/2023 1:50 PM CDT [facility] Ketones, Urine (mg/dL) Negative Negative 09/02/2023 1:50 PM T [facility] Urobilinogen, Urine (EU/dL) 1.0 <2.0 09/02/2023 1:50 PM T [facility] Bilirubin Urine Negative Negative 09/02/2023 1:50 PM T [facility] Blood, Urine Negative Neg/Trace 09/02/2023 1:50 PM T [facility] Nitrite Urine Negative Negative 09/02/2023 1:50 PM [facility] Leukocyte Est. Negative Negative 09/02/2023 1:50 PM T [facility] Urine Source Clean Catch 09/02/2023 1:50 PM [facility] Urine URINE SPECIMEN COLLECTION, CLEAN CATCH / Unknown Non-blood Collection / Unknown 09/02/2023 1:48 PM CDT 09/02/2023 1:48 PM CDT Michaela Lopez MD LAB_1 Performing Organization Address [facility]/State/ZIP Co de Phone Number [facility] [address] [place] [address], [facility] * ULTRASOUND SC (08/04/2023) Only the most recent of2 resultswithin the time period is included. Anatomical Region Laterality Modality Other Interface Provider DUMMY/OTHER/AR * MFM US OB First Trimester [...] the original result were not included. ?? [facility] [address] [address] [facility], [address] [place] [address] Dept Dept Patient Name: Alisia Velasquez ??Referred By: Attending: Maria Dolores Del Real APRN, EXHIBITS MANAGER Shaggy Smith MD Patient ??Welfare Supervisor: Dorothy Moran RDMS , Age: 4 1985, [...] grossly normal Nasal Bone appears normal ??Cardiac Temple appears normal Maxilla appears normal ??3 Vessel [...] still recommended. ?? Maria Dolores Del Real PEDIATRIC CRITICAL CARE NURSE, EXHIBITS MANAGER RAD MFM US * Vaginitis Panel, DNA Probe (07/27/2023 11:24 AM CDT) Bacterial Vaginosis Negative Negative 07/28/2023 2:00 PM CDT [facility] Albertina species Negative Negative 2:00 PM CDT [facility] Albertina glabrata Negative Negative 07/28/2023 2:00 PM CDT [facility] Trichomonas vaginalis Negative Negative 07/28/2023 2:00 PM CDT [facility] Swab STD SPECIMEN FROM VAGINA / Unknown Non-blood Collection / Unknown 07/27/2023 11:24 AM CDT 07/27/2023 2:58 PM CDT [facility] - 07/28/2023 2:00 PM CDT Test performed by [employer] Med[employer] (TMA). Sofiya Vo MD LAB_1 Performing Organization Address [facility] de Phone Number [facility] [address] * Chlamydia & GC (14 Years and Older): Vagina (07/27/2023 11:24 AM CDT) Only the most recent of2 resultswithin the time period is included. Chlamydia Trachomatis STD Not Detected Not Detected 07/28/2023 12:12 PM CDT [facility] N. gonorrhoeae STD Not Detected Not Detected 07/28/2023 12:12 PM CDT [facility] Swab STD SPECIMEN FROM VAGINA / Unknown Non-blood Collection / Unknown 07/27/2023 11:24 AM CDT 07/27/2023 2:58 PM CDT [facility] - 07/28/2023 12:12 PM CDT Test performed by [employer] Med[employer] (TMA). Sofiya Vo MD LAB_1 Performing Organization Address [facility] Co de Phone Number [facility] [address] * OB CLINIC ULTRASOUND LIMITED (07/21/2023) Only the most recent of2 resultswithin the time period is included. Anatomical Region Laterality Modality Other Impressions 07/21/2023 [facility] Cephalic presentation Gross movement visualized FHR 160 bpm Maria Dolores Del Real APRN, CNP PN CLINIC US ORDERABLES * Rubella Immune Status, IgG (07/07/2023 9:48 AM CDT) Rubella Units 3.84 07/08/2023 10:19 AM CDT [facility] Comment:The magnitude of the measured result, above the cutoff, is not indicative of the amount of antibody present. Rubella Intepretation Immune Immune 07/08/2023 10:19 AM CDT [facility] Blood Venipuncture / Unknown 07/07/2023 9:48 AM CDT 07/07/2023 9:48 AM CDT Maria Dolores Del Real APRN, CNP LAB_1 Performing Organization Address City/[facility]/ZIP Co de Phone Number [facility] [address] [place] [address] * Antibody Screen (07/07/2023 9:48 AM CDT) Antibody Screen Interpretation Negative 07/07/2023 4:42 PM CDT [facility] Blood Venipuncture / Unknown 07/07/2023 9:48 AM CDT 07/07/2023 9:48 AM CDT Maria Dolores Del Real APRN, CNP LAB_1 Performing Organization Address City/[facility]/ZIP Co de Phone Number [facility] [address] [place] [address] * Treponema Screen (Syphilis) (07/07/2023 9:48 AM CDT) Treponema Screen Result 0.127 {s_co_ratio } 07/07/2023 4:38 PM CDT [facility] Treponema Screen Interpretation Non Reactive Non Reactive 07/07/2023 4:38 PM CDT [facility] Blood Venipuncture / Unknown 07/07/2023 9:48 AM CDT 07/07/2023 9:48 AM CDT Maria Dolores Del Real APRN, CNP LAB_1 Performing Organization Address [facility]/ZIP Co de Phone Number [facility] [address] * Blood Type (07/07/2023 9:48 AM CDT) [facility] ABO A 07/07/2023 4:42 PM CDT [facility] RH Positive 07/07/2023 4:42 PM CDT [facility] Blood Venipuncture / Unknown 07/07/2023 9:48 AM CDT 07/07/2023 9:48 AM CDT Maria Dolores J Gt ZEPEDA CNP LAB_1 Performing Organization Address [facility] Co de Phone Number [facility] [address] * Panorama NIPT (07/07/2023 9:48 AM CDT) [facility] Panorama NIPT See Scanned Report 07/16/2023 10:34 AM CDT [employer] Blood Venipuncture / Unknown 07/07/2023 9:48 AM CDT 07/07/2023 9:48 AM CDT Maria Dolores Del Real APRN, CNP LAB_1 Performing Organization Address [facility] Co de Phone Number [employer] [address], [address] [place] [address] * Rapid Drug Panel, Urine (with Confirmation) without THC (07/07/2023 9:48 AM CDT) [facility] Amphetamines Screen Not Detected Not Detected 07/07/2023 4:08 PM CDT [facility] Barbiturates Screen Not Detected Not Detected 07/07/2023 4:08 PM CDT [facility] Benzodiazepines Screen Not Detected Not Detected 07/07/2023 4:08 PM CDT [facility] Buprenorphine Screen Not Detected Not Detected 07/07/2023 4:08 PM CDT [facility] Cocaine Metabolite Screen Not Detected Not Detected 07/07/2023 4:08 PM CDT [facility] Methadone Screen Not Detected Not Detected 07/07/2023 4:08 PM CDT [facility] Opiates Screen Not Detected Not Detected 07/07/2023 4:08 PM CDT [facility] Oxycodone Screen Not Detected Not Detected 07/07/2023 4:08 PM CDT [facility] Phencyclidine (PCP) Screen Not Detected Not Detected 07/07/2023 4:08 PM CDT [facility] Creatinine, Urine, Random 275 >20 mg/dL 07/07/2023 4:08 PM CDT [facility] Urine Non-blood Collection / Unknown 07/07/2023 9:48 AM CDT 07/07/2023 9:48 AM CDT Narrative [facility] - 07/07/2023 4:08 PM CDT The [...] Real APRN, CNP LAB_1 Performing Organization Address [facility] de Phone Number [facility] * HIV 1/2 Ag/Ab 4th Generation (07/07/2023 9:48 AM CDT) Pathologist [facility] HIV 1/2 Antigen/Antib monica (4th generation) Negative (Non Reactive) Negative (Non Reactive) 07/07/2023 4:39 PM CDT [facility] Comment:HIV-1 p24 Antigen an d HIV-1/HIV-2 Antibody not detected Blood Venipuncture / Unknown 07/07/2023 9:48 AM CDT 07/07/2023 9:48 AM CDT Maria Dolores Del Real APRN, SEBASTIÁN LAB_1 Performing Organization Address [facility] Co de Phone Number [facility] [address] [place], [place] [address] * Complete Blood Count-No Diff (07/07/2023 9:48 AM CDT) Pathologist [facility] WBC 9.5 3.5 - 10.5 x10(9)/L 07/07/2023 2:02 PM CDT [facility] RBC 4.56 3.90 - 5.03 x10(12)/L 07/07/2023 2:02 PM T [facility] Hemoglobin 13.7 12.0 - 15.5 g/dL 07/07/2023 2:02 PM T [facility] HCT 39.5 34.9 - 44.5 % 07/07/2023 2:02 PM [facility] MCV 86.6 80.0 - 100.0 fL 07/07/2023 2:02 PM [facility] MCH 30.0 27.6 - 33.3 pg 07/07/2023 2:02 PM [facility] MCHC 34.7 31.5 - 35.2 g/dL 07/07/2023 2:02 PM [facility] RDW 12.4 11.9 - 15.5 % 07/07/2023 2:02 PM [facility] Platelets 246 150 - 450 x10(9)/L 07/07/2023 2:02 PM [facility] Automated NRBC 0 <=0 /100 WBC 07/07/2023 2:02 PM [facility] Blood Venipuncture / Unknown 07/07/2023 9:48 AM CDT 07/07/2023 9:48 AM CDT Maria Dolores Del Real APRN, EXHIBITS MANAGER LAB_1 [facility] [address] [place] [address], [facility] * Hepatitis C Antibody, with Reflex (07/07/2023 9:48 AM CDT) Pathologist [facility] Hepatitis C Antibody Negative (Non Reactive) Negative (Non Reactive) 07/07/2023 4:39 PM CDT [facility] Comment:Antibodies to HCV no t detected. Does not exclude the possiblity of exposure to HCV. Blood Venipuncture / Unknown 07/07/2023 9:48 AM CDT 07/07/2023 9:48 AM CDT Maria Dolores Del Real APRN, CNP LAB_1 Performing Organization Address [facility] de Phone Number [facility] [address] [place] [address] * Hepatitis B Surface Antigen (07/07/2023 9:48 AM CDT) Pathologist [facility] Hepatitis B Surface Antigen Negative (Non Reactive) Negative (Non Reactive) 07/07/2023 4:38 PM CDT [facility] Blood Venipuncture / Unknown 07/07/2023 9:48 AM CDT 07/07/2023 9:48 AM CDT Maria Dolores Del Real APRN, CNP LAB_1 Performing Organization Address [facility] de Phone Number [facility] [address] * Hgb A1C (07/07/2023 9:48 AM CDT) [facility] Hemoglobin A1C 5.0 <=5.6 % 07/07/2023 8:20 PM CDT [facility] Estimated Average Glucose (Calc) 97 < 117 mg/dL 07/07/2023 8:20 PM CDT [facility] Comment:Estimated average gl ucose (eAG) converts A1c into glucose units (mg/dL) and estimates average glucose over the past approximately 3 months. The eAG reference interval (<117 mg/dL) corresponds to an A1c of <5.7%. Blood Venipuncture / Unknown 07/07/2023 9:48 AM CDT 07/07/2023 9:48 AM CDT Maria Dolores Del Real APRN, CNP LAB_1 Performing Organization Address [facility] de Phone Number [facility] [address] * US OB <14 Weeks w [...] cm ovoid hypoechoic area. Gestational sac: Unremarkable. [place]-rump length measures 1.8 cm, corresponding to 8w2d [...] 1.2 cm ovoidhypoechoic area. Gestational sac: Unremarkable. [place]-rump length measures 1.8 cm, corresponding to 8w2d [...] onfollow-up. Sofiya Vo MD RAD US * PAP Test (03/26/2022 11:10 AM [employer]ISH[employer]) Case Report Pap ? Case: [id number] ? Authorizing Provider: ??Maria Dolores Del Real, KATELYN, ?? Collected: ? 03/26/2022 1110 ? EXHIBITS MANAGER ? Ordering Location: ? [facility] ? Received: ?03/26/2022 1119 ? Services-WATER COMMISSIONER ? First Screen: ?Anna Grider ? Specimen: ?Pap Test, Routine, Cervix/Endocervix ? 04/20/2022 11:23 AM CDT [facility] Pap Specimen Adequacy Satisfactory for evaluation, endocervical/peck sformation zone component absent. 04/20/2022 11:23 AM CDT [facility] Pap Interpretation (NILM) Negative for intraepithelial lesion or malignancy. 04/20/2022 11:23 AM CDT [facility] Pap Disclaimer The Pap test is a screening test designed to aid in the detection of cervical cancer and its precursor lesions. It is not a diagnostic procedure and should not be used as the sole means of detecting cervical cancer. Both false-positive and false-negative results may occur. 04/20/2022 11:23 AM CDT [facility] Gross Description The specimen is received in SurePath fixative and properly labeled. 1 Pap-stained SurePath slide is prepared. 04/20/2022 11:23 AM CDT [facility] Embedded Images 11:23 AM CDT [facility] Other Specimen Type ENTIRE ENDOCERVIX / Unknown 03/26/2022 11:10 AM [employer] 03/26/2022 11:19 AM [facility] Comment:LMP: Patient's last menstrual period was 03/15/2022 (exact date). Maria Dolores Del Real APRN, CNP LAB PATHOLOGY [facility] [address] [place] [address], [facility] from Last 3 Months or Most Recently Relevant to Health Maintenance Care Teams Separator Inserter Relationship Specialty [place] [address] [place] [address] PCP - General Family Practice 11/03/20
--- OUTSIDE RECORDS SUMMARY | 2023-09-13 00:38 | XMS_ITS | Encounter Summary ---
Author Organization [facility] Address [address] [facility] [place] [address] Care Team Providers Care Production Control Expert Name Role Phone Tracy Dorado MD Primary Care Provider + Tracy Dorado MD Unavailable + Tracy Dorado MD Unavailable + Jasvir Montoya MD Unavailable + aKthy Ross PA-C Unavailable +[phone] [facility] Primary Ca re Provider + Jasvir Montoya MD Unavailable + Kathy Ross PA-C Unavailable +[phone] Tracy Dorado MD Unavailable + [employer] Primary Care Pro vider + Jasvir Montoya MD Unavailable + Mary Kate Herrera PA-C Unavailable Randal Joe MD Unavailable [phone] Mary Kate Herrera PA-C Unavailable Encounter Details Date Type Department Care Team (Late st Contact Info) Description 11/23/2016 [facility], [address] [place] [phone] Myah Figueroa RN Social History Tobacco Use [...] Out COVID-19 01/19/2021 01/19/2021 01/19/2021 3:03 PM AUTOMATIC COIN MACHINE MECHANIC Rule Out C-difficile 05/09/2021 05/10/2021 022 1:18 PM CDT C-difficile 05/10/2021 05/10/2021 06/09/2021 11:4 1 PM CDT Assessment Noted Time PHQ-9 Depression Total Score: 2 05/07/19 17 7:15 AM CDT documented as of this encounter Care Teams Production Control Expert Relationship Specialty Start Date End Date Tracy Dorado MD PCP - General Family Practice 11/02/12 01/07/19 [place] [address] [address] [address] PCP - Assigned PCP 02/13/17 04/11/18 [facility] [address] [address] [address] PCP - General 01/08/19 03/01/20 [facility], [address] [address] PCP - General 03/02/20 [place] [address] [place] [address] Assigned PCP 02/13/17 08/19/18 [place] [address] [place] [address] Assigned PCP 08/20/18 10/21/18 Kathy Ross PA-C [address] [address] Assigned PCP 10/22/18 08/18/19 [place] [address] [place] [address] Assigned PCP 08/19/19 08/25/19 Kathy Ross PA-C 480 [facility] [address] [place] [address] Assigned PCP 08/26/19 10/20/19 [place] [address] [place] [address] Assigned PCP 10/21/19 07/02/20 [place] [address] [place] [address] Assigned PCP 07/03/20 02/14/21 Mary Kate Herrera PA-C [address] [place] [address] Assigned PCP 02/15/21 Randal Joe MD [facility] [address] [place] [address] 07/20/22 Mary Kate Herrera PA-C [address] [place] [address] Assigned Pain Medication Provider 01/01/23 03/02/23 documented as of this encounter
--- OUTSIDE RECORDS SUMMARY | 2023-09-13 00:39 | XMS_ITS | Encounter Summary ---
Author Organization [employer] Address [address], [place] [address] Care Team Providers Care Grab Jack Worker Name Role Phone Randal Joe MD Primary Care Provider [phone] Reason for Visit * Reason Comments Concerns Encounter Details Date Type Department Care Team (Late st Contact Info) Description 09/06/2023 Nurse Triage [place] [address] Obstetrics/Gynecology [address] [place] [phone] [place] [address] [place], [place] [phone] Concerns Social History Tobacco Use Types Packs/Day [...] Center 09/12/2023 3:20 PM Miranda Metzger DO [facility]-HOG STOMACH PREPARER PN [facility] OBG Reason for Disposition Mild abdominal pain Protocols used: - Abdominal Pain Less Than 20 Weeks [id number] documented in this encounter Plan of Treatment Upcoming Encounters Date Type Department Care Team (Late st Contact Info) Description 09/14/2023 3:00 PM CDT Appointment [facility]-HOG STOMACH PREPARER [address] [place] [address], [address] [phone] Miranda Metzger DO [address] [place] [address] Dr Guevara [address] [place] [phone] 09/19/2023 10:00 AM CDT Appointment [facility] [address] [place] [address], [facility] [address] [place] [phone] Maria Dolores Del Real, MILL ORDER SCHEDULER, SKATES OPERATOR [address] [place] [address] [place] [address] 09/19/2023 11:00 AM CDT Appointment [facility] [address] [place] [address], [address] [place] [phone] Shaggy Smith MD [address] [place] [address] [address] [facility] [place] [address] 10/13/2023 9:00 AM CDT Appointment [facility]-HOG STOMACH PREPARER [address] [facility], [address] [place] [phone] Maria Dolores Del Real APRN, SKATES OPERATOR [address] [place] [address] [place] [address] documented as of this encounter Visit Diagnoses Not on filedocumented in this encounter Care Teams Grab Jack Worker Relationship Specialty [place] [address] [place] [address] PCP - General Family Practice 11/03/20 documented as of this encounter
--- OUTSIDE RECORDS SUMMARY | 2023-09-13 00:39 | XMS_ITS | Encounter Summary ---
Author Organization [employer] Address [address] [address] Care Team Providers Care Metalizing Machine Operator Automatic Name Role Phone Randal Joe MD Primary Care Provider [phone] Reason for Visit * Reason Comments Concerns Encounter Details Date Type Department Care Team (Latest Contact Info) Description 09/01/2023 4:00 PM CDT Routine [place] [address] Obstetrics/Gynecolo [address] [place] [address] [place] [address] [place] [address] Concerns Social History Tobacco Use Types Packs/Day [...] safe. Watch this short video by Proof Taylor: Proof: Some Think Drinking During is OK. It???s Not. - Ronda video Marijuana use is never recommended while or . Learn why here: https://Walmoo/09649.pdf is a time of transition. If you feel overwhelmed, anxious or depressed, see the followingresources: Emotional Distress During and After : https://Walmoo/07048.pdf Resources & Support for New & Expecting Parents: https://Walmoo/24145.pdf The 3 books provided throughout are also available digitally. Here are links to each book: Your Guide to : https://user-[employer].bz/DrwwguTjtufyus-Ynfs-Qhfvh-oa-r-Enbpxau- Preparing for Childbirth: https://user-[employer].bz/DrbvexQrzxghvy-Gvd-Oans-of-Motherhood Taking Care of You and Your [place]: https://user-[employer].bz/WgatndKtgxuaec-T-Dkc-Beginning [place] for our free herb called ???myHealthyPregnancy?? powered by mobli. The herb offers many quick articles and videos on , labor, , , and newborncare. Find instructions here: Or click on this link: myHealthyPregnancy tracker herb [facility] documented in this encounter Progress Notes * Michaela Lopez MD - 09/01/2023 4:00 PM CDT [facility] Obstetrics & Gynecology Clinic CC: Follow-up [...] Info) Description 09/14/2023 3:00 PM CDT Appointment [facility]-FERRY CAPTAIN [address] [facility], [facility] [address] [place] [phone] [place] [address] Guevara [address] [place] [address] 09/19/2023 10:00 AM CDT Appointment [facility] [address] [place] [address], [address] [phone] Maria Dolores Del Real, FARM SPECIALIST, FLIGHT ATTENDANT/INFLIGHT MANAGER [address] [place] [address] Dr Guevara [address] [place] [address] 09/19/2023 11:00 AM CDT Appointment [facility] [address] [place] [address], [address] [place] [phone] Shaggy Smith MD [address] [place] [address] [place] [address] [place], [place] [address] 10/13/2023 9:00 AM CDT Appointment [facility]-FERRY CAPTAIN [address] [facility], [address] [place] [phone] Maria Dolores Del Real APRN, FLIGHT ATTENDANT/INFLIGHT MANAGER [address] [place] [address] [place] [address] documented as of this encounter Visit Diagnoses Diagnosis Supervision of high risk in second trimester- Primary Unspecified high-risk Supervision of high-risk of elderly multigravida documented in this encounter Care Teams Metalizing Machine Operator Automatic Relationship Specialty [place] [address] [place] [address] PCP - General Family Practice 11/03/20 documented as of this encounter
--- OUTSIDE RECORDS SUMMARY | 2023-09-13 00:39 | XMS_ITS | Encounter Summary ---
Author Organization [facility] Address [address], [place] [address] Care Team Providers Care Veterinary Bacteriologist Name Role Phone Randal Joe MD Primary Care Provider [phone] Reason for Visit * Reason Comments Concerns Encounter Details Date Type Department Care Team (Late st Contact Info) Description 09/12/2023 Nurse Triage [facility]-ROLL EDGE MACHINE OPERATOR [address] [facility], [facility] [address] [place] [address] [place] [address] [place] [address] Concerns Social History Tobacco Use [...] encounter Nursing Notes * Minoo Brumfield - 09/12/2023 8:09 AM CDT Reason for Disposition Unable to keep ANY liquids down (without vomiting) this past 24 hours Protocols used: - Morning Sickness (Nausea and Vomiting of )-ADULT-OH Patient calling with concerns about on and off vomiting since Tuesday, dehydration, and no bowel movements for 3+ days. Patient very uncomfortable and tearful on phone. States went to ED Tuesday and Tuesday with no help or relief to symptoms. Was given fluids each time and told pain could be from gallbladder. Using Miralax and colace daily. Mother in law and present during phone conversation, and concerned about patient. Mother in law states is going to call 911. Reviewed will keep afternoon appointment as follow up if needed. Patient would like provider to be aware. Routed to provider as FYI Problem list reviewed as related to this call. documented in this encounter Plan of Treatment Upcoming Encounters Date Type Department Care Team (Late st Contact Info) Description 09/14/2023 3:00 PM CDT Appointment [facility]-ROLL EDGE MACHINE OPERATOR [address] [facility], [facility] [address] [place] [phone] [place] [address] Guevara [address] [place] [address] 09/19/2023 10:00 AM CDT Appointment [facility] [address] [facility], [address] [place] [phone] Maria Dolores Del Real, LEAD FURNACE OPERATOR, HEAD BONE GRINDER [address] Guevara [address] [place] [address] 09/19/2023 11:00 AM CDT Appointment [facility] [address] [facility], [address] [place] [phone] Shaggy Smith MD [address] [facility] [address]uevara [address] [place] [address] 10/13/2023 9:00 AM CDT Appointment [facility]-ROLL EDGE MACHINE OPERATOR [address] [facility], [address] [place] [phone] Maria Dolores Del Real, LEAD FURNACE OPERATOR, HEAD BONE GRINDER [address] Guevara [address] [place] [address] documented as of this encounter Visit Diagnoses Not on filedocumented in this encounter Care Teams Veterinary Bacteriologist Relationship Specialty [place] [address] [place] [address] PCP - General Family Practice 11/03/20 documented as of this encounter
--- OUTSIDE RECORDS SUMMARY | 2023-09-13 00:39 | XMS_ITS | Encounter Summary ---
Author Organization [employer] Address [address], [place] [address] Care Team Providers Care Commissioner Conservation Of Resources Name Role Phone Randal Joe MD Primary Care Provider [phone] Encounter Details Date Type Department Care Team (Late st Contact Info) Description 09/02/2023 Telephone [place] [address] Obstetrics/Gynecology [address] [place] [address] [place] [address] [place], [place] [phone] Social History Tobacco Use Types Packs/Day Years [...] patient doesn't want to be seen at [facility] ED again. Will present to [facility]. Aware unable to give IV fluids or enema in clinic.Problem list reviewed as related to this call. Future Appointments Provider Department Center 09/02/2023 1:00 PM Michaela Lopez MD [place] [address] Obstetrics/Gynecology PN [place]AK[place] documented in this encounter Plan of Treatment Upcoming Encounters Date Type Department Care Team (Late st Contact Info) Description 09/14/2023 3:00 PM CDT Appointment [facility]-FIRST COAT OPERATOR [address] [facility] [address] [place] [phone] Miranda Metzger, [address] Guevara [address] [place] [phone] 09/19/2023 10:00 AM CDT Appointment [facility] [address] [facility] [address] [place] [phone] Maria Dolores Del Real, COAL CARRIER, PUMP TECHNICIAN [address] Guevara [address] [place] [address] 09/19/2023 11:00 AM CDT Appointment [facility] 9855 [facility] 275 [place] [address] Shaggy Smith MD [address] [place] [address] Dr Guevara [address] [place] [address] 10/13/2023 9:00 AM CDT Appointment [facility]-FIRST COAT OPERATOR [address] [facility], [address] [place] [phone] Maria Dolores Del Real, COAL CARRIER, PUMP TECHNICIAN [address] Guevara [address] [place], [place] [address] documented as of this encounter Visit Diagnoses Not on filedocumented in this encounter Care Teams Commissioner Conservation Of Resources Relationship Specialty [place] [address] [place] [address] PCP - General Family Practice 11/03/20 documented as of this encounter
--- OUTSIDE RECORDS SUMMARY | 2023-09-13 00:39 | XMS_ITS | Encounter Summary ---
Author Organization [employer] Address [address], [place] [address] Care Team Providers Care Respiratory Care Instructor Name Role Phone Randal Joe MD Primary Care Provider [phone] Encounter Details Date Type Department Care Team (Late st Contact Info) Description 09/02/2023 1:50 PM CDT Lab Visit [facility] [address] [facility] [place] [address] Anxiety in in second trimester, [...] Info) Description 09/14/2023 3:00 PM CDT Appointment [facility]-CLINICAL PSYCHOLOGIST [facility]IVATE PRACTICE [address] [facility], [facility] [address] [place] [phone] [place] [address] [place] [address] Dr Guevara [place], [place] [phone] 09/19/2023 10:00 AM CDT Appointment [facility] [address] [place] [phone] Maria Dolores Del Real, TUBE BUILDING MACHINE OPERATOR, SPEED OPERATOR [address] [place] [address] Dr Guevara [place], [place] [phone] 09/19/2023 11:00 AM CDT Appointment [facility] [address] [place] [phone] Shaggy Smith MD [address] [place] [address] 275 [place], [place] [phone] 10/13/2023 9:00 AM CDT Appointment [facility]-CLINICAL PSYCHOLOGIST PR[facility] PRACTICE [address] [place] [address], [address] [phone] Maria Dolores Del Real TUBE BUILDING MACHINE OPERATOR, SPEED OPERATOR [address] [place] [address] Dr Guevara [place], [place] [phone] documented as of this encounter Procedures Procedure [...] Urine Culture Growth(A) 09/04/2023 7:45 AM CDT [facility] Urine Culture <10,000 CFU/mL Mixed Bacterial Growth 09/04/2023 7:45 AM [facility] Comment: Mixed Bacterial Growth indicates the specimen is likely contaminated at collection with urogenital and/or fecal nicole. The presence of organisms at <10,000 cfu/ml in culture, UTI unlikely. Urine URINE SPECIMEN COLLECTION, CLEAN CATCH / Unknown Non-blood Collection / Unknown 09/02/2023 1:48 PM CDT 09/02/2023 1:48 PM CDT Michaela Lopez MD LAB_[address] [place] [address] * (ABNORMAL) Urinalysis Routine, Micro/Culture if Pos: Clean Catch (09/02/2023 1:48 PM CDT) Urine Culture Comment Urinalysis results do not meet criteria for urine culture reflex. 09/02/2023 1:50 PM [facility] Urine Color Yellow 09/02/2023 1:50 PM [facility] Urine Clarity Clear Clear 09/02/2023 1:50 PM [facility] Specific [place], Urine >=1.030(A) 1.005 - 1.030 09/02/2023 1:50 PM [facility] PH Urine 6.0 5.0 - 8.0 09/02/2023 1:50 PM [facility] Protein, Urine Qual (mg/dL) Negative Neg/Trace 09/02/2023 1:50 PM [facility] Glucose Urine Qual (mg/dL) Negative Negative 09/02/2023 1:50 PM [facility] Ketones, Urine (mg/dL) Negative Negative 09/02/2023 1:50 PM [facility] Urobilinogen, Urine (EU/dL) 1.0 <2.0 09/02/2023 1:50 PM [facility] Bilirubin Urine Negative Negative 09/02/2023 1:50 PM [facility] Blood, Urine Negative Neg/Trace 09/02/2023 1:50 PM CDT [facility] Nitrite Urine Negative Negative 09/02/2023 1:50 PM CDT [facility] Leukocyte Est. Negative Negative 09/02/2023 1:50 PM CDT [facility] Urine Source Clean Catch 09/02/2023 1:50 PM CDT [facility] Urine URINE SPECIMEN COLLECTION, CLEAN CATCH / Unknown Non-blood Collection / Unknown 09/02/2023 1:48 PM CDT 09/02/2023 1:48 PM CDT Michaela Lopez MD LAB_1 [facility] [address] [place] [address] documented in this encounter Visit Diagnoses Diagnosis Anxiety in in second trimester, antepartum (HRC) documented in this encounter Care Teams Respiratory Care Instructor Relationship Specialty [place] [address] [place], [place] [phone] PCP - General Family Practice 11/03/20 documented as of this encounter
--- OUTSIDE RECORDS SUMMARY | 2023-09-13 00:39 | XMS_ITS | Encounter Summary ---
Author Organization [employer] Address [address] [address] Care Team Providers Care Chief Console Operator Name Role Phone Randal Joe MD Primary Care Provider [phone] Reason for Visit * Reason Comments Forms Encounter Details Date Type Department Care Team (Late st Contact Info) Description 09/06/2023 Telephone [place] [address] Obstetrics/Gynecology [address] [place] [address] [place] [address] [place], [place] [phone] Forms Social History Tobacco Use Types Packs/Day [...] Info) Description 09/14/2023 3:00 PM CDT Appointment [facility]-TOP BOTTOM ATTACHING MACHINE OPERATOR [address] [facility], [facility] [address] [place] [phone] [place] [address] Guevara [address] [place] [address] 09/19/2023 10:00 AM CDT Appointment [facility] [address] [facility], [facility] [address] [place] [phone] Maria Dolores Del Real APRN, MERCHANDISE FOR RESALE PURCHASING AGENT [address] Guevara [address] [place] [address] [id number] 09/19/2023 11:00 AM CDT Appointment [facility] 55 [facility], [address] [place] [phone] Shaggy Smith MD [address] [facility] [address] Guevara [address] [place] [address] 10/13/2023 9:00 AM CDT Appointment [facility]-TOP BOTTOM ATTACHING MACHINE OPERATOR [address]52 [facility], [address] [place] [phone] Maria Dolores Del Real APRN, MERCHANDISE FOR RESALE PURCHASING AGENT [address] Guevara [address] [place], [place] [phone] documented as of this encounter Visit Diagnoses Not on filedocumented in this encounter Care Teams Chief Console Operator Relationship Specialty [place] [address] [place] [address] PCP - General Family Practice 11/03/20 documented as of this encounter
--- OUTSIDE RECORDS SUMMARY | 2023-09-13 00:39 | XMS_ITS | Encounter Summary ---
Author Organization [employer] Address [address], [place] [address] Care Team Providers Care Snuff Blender Name Role Phone Randal Joe MD Primary Care Provider [phone] Reason for Visit * Reason Comments Medication Questions Encounter Details Date Type Department Care Team (Late st Contact Info) Description 09/04/2023 Telephone [facility] [address] [place] [address] [place] [address] [place] [address] Medication Questions Social History Tobacco [...] 6:22 PM CDT Clinician: Review and advise Patient/pulmonary care nurse request: Input needed: medication concerns Specific Request: [...] Info) Description 09/14/2023 3:00 PM CDT Appointment [place]-DISPATCHER SERVICE OR WORK [address] [facility], [address] [address] [place] [address] Guevara [address] [place] [address] [phone] 09/19/2023 10:00 AM CDT Appointment [facility] [address] [facility], [address] [phone] Maria Dolores Del Real, CDC ASSOCIATE, HYPERBARIC TECHNOLOGIST [address] Guevara [address] [place] [address] [phone] 09/19/2023 11:00 AM CDT Appointment [facility] 9855 [facility], [address] [place] [phone] Shaggy Smith MD 9855 [facility] Ismael 275 [facility] [place] [place] [address] 10/13/2023 9:00 AM CDT Appointment [place] [facility]-DISPATCHER SERVICE OR WORK [address]326 [facility], [address] [place] [phone] Maria Dolores Del Real APRN, HYPERBARIC TECHNOLOGIST [address]178 [facility] [address] [place], [place] [phone] documented as of this encounter Visit Diagnoses Not on filedocumented in this encounter Care Teams Snuff Blender Relationship Specialty [place] [address] [place] [address] PCP - General Family Practice 11/03/20 documented as of this encounter
--- OUTSIDE RECORDS SUMMARY | 2023-09-13 00:39 | XMS_ITS | Encounter Summary ---
Author Organization [employer] Address [address], [place] [address] Care Team Providers Care Podiatric Medicine Professor Name Role Phone Randal Joe MD Primary Care Provider [phone] Reason for Visit * Reason Comments Constipation Encounter Details Date Type Department Care Team (Late st Contact Info) Description 09/08/2023 Nurse Triage [facility] [address] [place], [place] [phone] [place] [address] [place], [place] [phone] Constipation Social History Tobacco Use Types Packs/Day [...] for Disposition Leaking stool Protocols used: - Yctfjxwxbjwy-OHARA-QF documented in this encounter Plan of Treatment Upcoming Encounters Date Type Department Care Team (Late st Contact Info) Description 09/14/2023 3:00 PM CDT Appointment [facility]-SEALER AIRCRAFT [address] [place] [address], [address] [phone] [place] [address] [place] [address] [address] 09/19/2023 10:00 AM CDT Appointment [facility] [address] [place] [phone] Maria Dolores Del Real, ICHTHYOLOGIST, DIRECTOR OF MARKETING OPERATIONS [address] [place] [address] Dr [address] [place] [address] 09/19/2023 11:00 AM CDT Appointment [facility] [address] [place] [address], [address] [place] [phone] Shaggy Smith MD [address] [place], [place] [address]JUSTIN [place], [place] [address] 10/13/2023 9:00 AM CDT Appointment [facility]-SEALER AIRCRAFT [address] [place] [address] 420 [place] [phone] Maria Dolores Del Real APRN, DIRECTOR OF MARKETING OPERATIONS [address] Ismael [address] [place] [address] documented as of this encounter Visit Diagnoses Not on filedocumented in this encounter Care Teams Podiatric Medicine Professor Relationship Specialty [place] [address] [place] [address] PCP - General Family Practice 11/03/20 documented as of this encounter
--- OUTSIDE RECORDS SUMMARY | 2023-09-13 00:39 | XMS_ITS | Encounter Summary ---
Author Organization [employer] Address [address], [place] [address] Care Team Providers Care Tile Layer Drainage Name Role Phone Randal Joe MD Primary Care Provider [phone] Reason for Visit * Reason Comments Concerns CONSTIPATION Encounter Details Date Type Department Care Team (Late st Contact Info) Description 09/09/2023 Nurse Triage [place] [address] Obstetrics/Gynecology [address] [place] [phone] [place] [address] [place], [place] [phone] Concerns; CONSTIPATION Social History Tobacco Use Types Packs/Day [...] Nursing Notes * Radha Lund, RN - 09/09/2023 9:02 AM CDT Reason for Disposition Constipation is a chronic symptom (recurrent or ongoing AND present > 4 weeks) Protocols used: - Swdheuhummbb-DSHVI-MI 18 6/7 wks calling because she has been experiencing constipation with this . She called the nurse line yesterday because she used a suppository and noted some burning after placing it. Had some loose stool yesterday. Today calling because she threw up after having a sharp pain in her belly when she was having a BM. Pain did subside but states it was sharp. No vaginal bleeding. BM this morning was soft and she is passing gas this morning now. Takes colace daily and miralax. Reviewed care advice r/t constipation. Advised to continue to eat foods high in fiber, increase fluids and exercise. Pt to callback if no BM more than 4 days, not passing gas, any bleeding, constant pain or any other concerns. Pt agreed. documented in this encounter Plan of Treatment Upcoming Encounters Date Type Department Care Team (Late st Contact Info) Description 09/14/2023 3:00 PM CDT Appointment [facility]-LEADERSHIP COACH 54120 [facility], [facility] [address] [place] [phone] [place] [address] Guevara [address] [place] [address] 09/19/2023 10:00 AM CDT Appointment [facility] [address]018 [facility], [facility] [address] [place] [phone] Maria Dolores Del Real, DRY ICE MACHINE OPERATOR, JUMPBASTING MACHINE OPERATOR [address] Guevara [address] [place] [address] 09/19/2023 11:00 AM CDT Appointment [facility] 55 [facility], [address] [place] [address] Shaggy Smith MD 9855 [facility] Ismael 275 [facility] [place] [address] 10/13/2023 9:00 AM CDT Appointment [facility]-LEADERSHIP COACH [address]362 [facility], [address] [place] [phone] Maria Dolores Del Real, DRY ICE MACHINE OPERATOR, JUMPBASTING MACHINE OPERATOR [address] Guevara [address] [place], [place] 684567 documented as of this encounter Visit Diagnoses Not on filedocumented in this encounter Care Teams Tile Layer Drainage Relationship Specialty [place] [address] [place] [address] PCP - General Family Practice 11/03/20 documented as of this encounter
--- OUTSIDE RECORDS SUMMARY | 2023-09-13 00:39 | XMS_ITS | Encounter Summary ---
Author Organization [employer] Address [address], [place] [address] Care Team Providers Care In Processing Instructor Name Role Phone Randal Joe MD Primary Care Provider [phone] Reason for Visit * Reason Comments Hospital Discharge Follow-up Constipatio n and vomiting - positive Encounter Details Date Type Department Care Team (Late st Contact Info) Description 09/01/2023 8:30 AM CDT Office Visit [place] [address] Family Medicine [address] [place] [address] Dora Gates, PAJohnC [address] [place], [place] [phone] Constipation, unspecified constipation type (Primary Dx) Social [...] of magnesium citrate and 2g fish oil (SocialTagg is good brand) before bed each night. [...] in this encounter Progress Notes * Dora Gates PA-C - 09/01/2023 8:30 AM CDT Clinic [...] of magnesium citrate and 2g fish oil (SocialTagg is good brand) before bed each night. [...] Info) Description 09/14/2023 3:00 PM CDT Appointment [facility]-MEDICAL OBSERVER [address] [place] [address], [address] [phone] [place] [address] Guevara [address] [place] [address]137 09/19/2023 10:00 AM CDT Appointment [facility] [address] [place] [phone] Maria Dolores Del Real APRN, TEXTILE CUTTING MACHINE OPERATOR [address] [place] [address] Dr Guevara [address] [place] [address] [phone] 09/19/2023 11:00 AM CDT Appointment [facility] [address] [place] [address], [address] [place] [phone] Shaggy Smith MD [address] [place] [address] 315259 10/13/2023 9:00 AM CDT Appointment [facility]-MEDICAL OBSERVER [address] [place] [phone] Maria Dolores Del Real APRN, TEXTILE CUTTING MACHINE OPERATOR [address] [place] [address] [address] documented as of this encounter Visit Diagnoses Diagnosis Constipation, unspecified constipation type- Primary documented in this encounter Care Teams In Processing Instructor Relationship Specialty [place] [address] [place] [address] PCP - General Family Practice 11/03/20 documented as of this encounter
--- OUTSIDE RECORDS SUMMARY | 2023-09-13 00:39 | XMS_ITS | Encounter Summary ---
Author Organization [employer] Address [address], [place] [address] Care Team Providers Care Cyber Transport Systems Specialist Name Role Phone Randal Joe MD Primary Care Provider [phone] Reason for Referral * Consult/Transfer Care (Routine) - New Request Specialty Diagnoses / Procedures Referred By Contshabbir t Referred To Contact Diagnoses High-risk in second trimester Maria Dolores Del Real APRN, CNP [address]23 [facility] [address]mael [address] [place] [address] Referral ID Status Reason Start Date Expiration Date V isits Requested Visits Authorized [id number] New Request 08/26/2023 11/24/2024 1 1 Scheduling Instructions Your clinician has recommended an appointment with Tiffany Li. You may call [phone] to schedule your appointment. We suggest you call your health insurance company about your coverage and benefits for this appointment. Question Answer Appointment Urgency? Non-Urgent Reason for visit? Reason for Visit * Reason Comments CONSTIPATION Encounter Details Date Type Department Care Team (Late st Contact Info) Description 08/26/2023 3:30 PM CDT Routine [facility]-BINDER CASER [address] [facility], [address] [place] [address] Maria Dolores Del Real APRN, CRIMINAL JUDGE [address] [place] [address] CONSTIPATION Social History Tobacco Use Types Packs/Day [...] safe. Watch this short video by [employer] [place]: Proof: Some Think Drinking During is OK. It???s Not. - Ronda video Marijuana use is never recommended while or . Learn why here: https://[employer]/54840.pdf is a time of transition. If you feel overwhelmed, anxious or depressed, see the followingresources: Emotional Distress During and After : https://[employer]/00796.pdf Resources & Support for New & Expecting Parents: https://[employer]/27638.pdf The 3 books provided throughout are also available digitally. Here are links to each book: Your Guide to : https://user-Veotag.Info/IvqmwvBjidpxfo-Bwjd-Rrmqz-jb-z-Sqveabi- Preparing for Childbirth: https://userMoveEZ/SwowjcXltwhnxm-Yxg-Irfw-of-Motherhood Taking Care of You and Your : https://userMoveEZ/YylzmnGciwesny-D-Rhr-Beginning [place] for our free herb called ???myHealthyPregnancy?? powered by [employer]. The herb offers many quick articles and videos on , labor, , , and newborncare. Find instructions here: Or click on this link: myHealthyPregnancy tracker herb [employer] Constipation in The same hormones that help [...] using stimulant laxatives frequently or on a intermediate basis. Laxatives can make your bowels more [...] Info) Description 09/14/2023 3:00 PM CDT Appointment [facility]-BINDER CASER [address] [facility], [address] [place] [phone] [place] [address] [address] [place] [address] 09/19/2023 10:00 AM CDT Appointment [facility] [address] [facility], [address] [place] [phone] Maria Dolores Del Real, DENTAL TECH, CRIMINAL JUDGE [address] Guevara [address] [place] [address] 09/19/2023 11:00 AM CDT Appointment [facility] 9855 [facility], [address] [place] [phone] Shaggy Smith MD [address] [place] [address] 275 [place], [place] 843219 10/13/2023 9:00 AM CDT Appointment [facility]-BINDER CASER 7[address] [facility], [facility] [address] [place] [phone] Maria Dolores Del Real, DENTAL TECH, CRIMINAL JUDGE [address] Guevara [address] [place], [place] 337017 Scheduled Orders Name Type Priority Associated Diagnoses [...] trimester documented in this encounter Care Teams Cyber Transport Systems Specialist Relationship Specialty [place] [address] [place] [address] PCP - General Family Practice 11/03/20 documented as of this encounter
--- OUTSIDE RECORDS SUMMARY | 2023-09-13 00:39 | XMS_ITS | Encounter Summary ---
Author Organization [facility] Address [address] [address] Care Team Providers Care Head Athletic Trainer Name Role Phone Randal Joe MD Primary Care Provider [phone] Reason for Visit * Reason Comments Forms Encounter Details Date Type Department Care Team (Late st Contact Info) Description 08/29/2023 Telephone [facility]-PICK UP MAN [address] [phone] Maria Dolores Del Real, COMPRESS MACHINE OPERATOR, FILLER SIFTER HELPER [address]248 [facility] [address] [place] [address] Forms Social History Tobacco Use [...] Info) Description 09/14/2023 3:00 PM CDT Appointment [facility]-PICK UP MAN [address] [place] [phone] Miranda Metzger DO [address] [place] [address] 209607 09/19/2023 10:00 AM CDT Appointment [facility] [address] [place] [phone] Maria Dolores Del Real APRN, FILLER SIFTER HELPER [address] [place] [address] [address] [place], [place] [address]37 09/19/2023 11:00 AM CDT Appointment [facility] [address] [place] [phone] Shaggy Smith MD [address] [place], [place] [address]JUSTIN [place], [place] [address] 10/13/2023 9:00 AM CDT Appointment [facility]-PICK UP MAN [address] [place] [address] [phone] Maria Dolores Del Real APRN, FILLER SIFTER HELPER [address] [place] [address] Dr [address] [place] [address] documented as of this encounter Visit Diagnoses Not on filedocumented in this encounter Care Teams Head Athletic Trainer Relationship Specialty [place] [address] [place] [address] PCP - General Family Practice 11/03/20 documented as of this encounter
--- OUTSIDE RECORDS SUMMARY | 2023-09-13 00:39 | XMS_ITS | Encounter Summary ---
Author Organization [employer] Address [address] [address] Care Team Providers Care Putty And Patch Worker Name Role Phone Randal Joe MD Primary Care Provider [phone] Reason for Visit * Reason Comments Abdominal Pain Encounter Details Date Type Department Care Team (Late st Contact Info) Description 08/30/2023 Nurse Triage [place] [address] Family Medicine [address] [place] [phone] [place] [address] [place], [place] [phone] Abdominal Pain Social History Tobacco Use Types [...] - Abdominal Pain Less Than 20 Weeks [id number] Spoke with pt. Is almost 17 weeks [...] States will go back to ED to [facility]. Pt verbalizes understanding of info. To call back to PCP or OB if has further concerns/questio ns. Problem list reviewed as related to this call. documented in this encounter Plan of Treatment Upcoming Encounters Date Type Department Care Team (Late st Contact Info) Description 09/14/2023 3:00 PM CDT Appointment [facility] [place] [facility]-DIETITIAN [address] [facility], [facility] 420 [place] [phone] [place] [address] Guevara [address] [place] [address] 09/19/2023 10:00 AM CDT Appointment [facility] [address]21 [facility], [address] [place] [phone] Maria Dolores Del Real APRN, TERRAZZO LAYER [address] Guevara [address] [place], [place] [address] 09/19/2023 11:00 AM CDT Appointment [facility] [address] [place] [address], [address] [place] [phone] Shaggy Smith MD [address] [place] [address] 275 [place], [place] 503229 10/13/2023 9:00 AM CDT Appointment [facility]-DIETITIAN [address] [facility], [address] [phone] Maria Dolores Del Real APRN, TERRAZZO LAYER [address] Guevara [address] [place] [address] 578467 documented as of this encounter Visit Diagnoses Not on filedocumented in this encounter Care Teams Putty And Patch Worker Relationship Specialty [place] [address] [place] [address] PCP - General Family Practice 11/03/20 documented as of this encounter
--- OUTSIDE RECORDS SUMMARY | 2023-09-13 00:39 | XMS_ITS | Encounter Summary ---
Author Organization [employer] Address [address], [place] [address] Care Team Providers Care Ballet Soloist Name Role Phone Randal Joe MD Primary Care Provider [phone] Reason for Visit * Reason Comments BOWEL PROBLEMS Follow-up Encounter Details Date Type Department Care Team (Late st Contact Info) Description 09/08/2023 Nurse Triage [facility] [address] [place], [place] [phone] [place] [address] [place] [address] BOWEL PROBLEMS; Follow-up Social History Tobacco Use Types Packs/Day [...] as of this encounter Nursing Notes * Tiffani Song RN - 09/09/2023 12:31 AM CDT Reason for Disposition ??? [1] Recent medical visit within 24 hours AND [2] condition / symptoms SAME (unchanged) AND [3] caller has additional questions triager can answer Protocols used: Recent Medical Visit for Illness Follow-up Czdd-HUMGA-HQ * Gunjan Gar RN - 09/08/2023 9:04 PM CDT * Araceli Ferrell - 09/08/2023 8:56 PM CDT Situation/Background (brief explanation of current symptoms/situation): Spoke with patient. Intermittent left upper abdomen pain 07/17. Feeling like she has to pass gas but unable to. Leaking stool. Worse after eating making it difficult to eat which is causing some dizziness. Phone call was disconnected and patient called back to [facility]. See other encounter dated 09/08/23. Denies: too weak to stand, signs of dehydration, fever Reviewed pertinent medical history and medications as they relate to call: Yes Reason for Disposition [1] Abdomen pain AND [2] < 20 weeks MODERATE-SEVERE abdominal pain (e.g., interferes with normal activities, awakens from sleep) Protocols used: - Eyevbudgoobt-YCILA-LR, - Abdominal Pain Less Than 20 Weeks LHC-LCLLM-HO documented in this encounter Plan of Treatment Upcoming Encounters Date Type Department Care Team (Late st Contact Info) Description 09/14/2023 3:00 PM CDT Appointment [facility] [place] [facility]-FABRIC AND ACCESSORIES ESTIMATOR [address] [place] [address], [address] [place] [address] [place] [address] Guevara [address] [place] [address], [place] [address] 09/19/2023 10:00 AM CDT Appointment [facility] 12375 [facility] [address] [place] [phone] Maria Dolores Del Real, SIEBEL CONSULTANT, CHILD DEVELOPMENT SPECIALIST [address] Guevar[address] [place], [place] [address] 09/19/2023 11:00 AM CDT Appointment [facility] [address] [place] [address], [facility] [address] [place] [phone] Shaggy Smith MD [address] [place] [address] 275 [facility] [place], [place] [address] 10/13/2023 9:00 AM CDT Appointment [facility] [place] [facility]-FABRIC AND ACCESSORIES ESTIMATOR [address] [place] [address] [phone] Maria Dolores Del Real, SIEBEL CONSULTANT, CHILD DEVELOPMENT SPECIALIST [address] Guevara [place], [place] [phone] documented as of this encounter Visit Diagnoses Not on filedocumented in this encounter Care Teams Ballet Soloist Relationship Specialty [place] [address] [place] [address] PCP - General Family Practice 11/03/20 documented as of this encounter
--- OUTSIDE RECORDS SUMMARY | 2023-09-13 00:39 | XMS_ITS | Encounter Summary ---
Author Organization [employer] Address [address], [place] [address] Care Team Providers Care Coat Check Attendant Name Role Phone Randal Joe MD Primary Care Provider [phone] Reason for Referral * Consult/Transfer Care (Routine) - New Request Specialty Diagnoses / Procedures Referred By Contac t Referred To Contact Diagnoses Anxiety in in second trimester, antepartum (HRC) [place] [address] [place] [address] Referral ID Status Reason Start Date Expiration Date V isits Requested Visits Authorized [id number] New Request 09/02/2023 12/01/2024 1 1 Scheduling Instructions Your clinician has recommended an appointment with Behavioral Health. You may call [phone] to schedule your appointment. This recommended service/s [...] Info) Description 09/02/2023 1:00 PM CDT Routine [facility] [address] Obstetrics/Gynecolo [address] [place] [address] [place] [address] [place] [address] Follow-up (Follow up ER 08/31 [...] Lopez MD - 09/02/2023 1:00 PM CDT [facility] Obstetrics and Gynecology New Patient Visit Alisia Velasquez [id number] Reason for visit: ED follow up for pain, anxiety, constipation HPI: Alisia Velasquez is a 38 y.o. who presents to [facility] for the above. She was seen [...] 0 0 0 Obstetric Comments 12/2022- SAB/D&C Upholstery Handler Hx: 06/24/2023 11:33 AM MENSTRUAL TRACKING Period [...] Info) Description 09/14/2023 3:00 PM CDT Appointment [facility]DESKIDDING MACHINE OPERATOR [address] [place] [address] [phone] [place] [address] [place] [address] [phone] 09/19/2023 10:00 AM CDT Appointment [facility] [address] [place] [address] [phone] Maria Dolores Del Real APRN, BIOMASS PRODUCTION MANAGER [address] [place] [address] [phone] 09/19/2023 11:00 AM CDT [facility] [address] [place] [address], [address] [place] [phone] Shaggy Smith MD [address] [place] [address] [phone] 10/13/2023 9:00 AM CDT Appointment [facility]-DESKIDDING MACHINE OPERATOR [address] [place] [address] [phone] Maria Dolores Del Real APRN, BIOMASS PRODUCTION MANAGER [address] Guevara [address] [place] [address] [phone] Scheduled Referrals Name Type Priority Associated Diagnoses Orde r Schedule Behavioral Health Referral Routine Anxiety in in second trimester, antepartum (HRC) Ordered: 09/02/2023 documented as of this encounter Results * (ABNORMAL) Urine Culture (09/02/2023 1:48 PM CDT) Urine Culture Growth(A) 09/04/2023 7:45 AM CDT [facility] Urine Culture <10,000 CFU/mL Mixed Bacterial Growth 09/04/2023 7:45 AM CDT [facility] Comment: Mixed Bacterial Growth indicates the specimen is likely contaminated at collection with urogenital and/or fecal nicole. The presence of organisms at <10,000 cfu/ml in culture, UTI unlikely. Urine URINE SPECIMEN COLLECTION, CLEAN CATCH / Unknown Non-blood Collection / Unknown 09/02/2023 1:48 PM CDT 09/02/2023 1:48 PM CDT Michaela Lopez MD LAB_1 [place] [address], [facility] * (ABNORMAL) Urinalysis Routine, Micro/Culture if Pos: Clean Catch (09/02/2023 1:48 PM CDT) Urine Culture Comment Urinalysis results do not meet criteria for urine culture reflex. 09/02/2023 1:50 PM CDT [facility] Urine Color Yellow 09/02/2023 1:50 PM CDT [facility] Urine Clarity Clear Clear 09/02/2023 1:50 PM T [facility] Specific [place], Urine >=1.030(A) 1.005 - 1.030 09/02/2023 1:50 PM T [facility] PH Urine 6.0 5.0 - 8.0 09/02/2023 1:50 PM T [facility] Protein, Urine Qual (mg/dL) Negative Neg/Trace 09/02/2023 1:50 PM T [facility] Glucose Urine Qual (mg/dL) Negative Negative 09/02/2023 1:50 PM CDT [facility] Ketones, Urine (mg/dL) Negative Negative 09/02/2023 1:50 PM T [facility] Urobilinogen, Urine (EU/dL) 1.0 <2.0 09/02/2023 1:50 PM T [facility] Bilirubin Urine Negative Negative 09/02/2023 1:50 PM CDT [facility] Blood, Urine Negative Neg/Trace 09/02/2023 1:50 PM CDT [facility] Nitrite Urine Negative Negative 09/02/2023 1:50 PM CDT [facility] Leukocyte Est. Negative Negative 09/02/2023 1:50 PM CDT [facility] Urine Source Clean Catch 09/02/2023 1:50 PM CDT [facility] Urine URINE SPECIMEN COLLECTION, CLEAN CATCH / Unknown Non-blood Collection / Unknown 09/02/2023 1:48 PM CDT 09/02/2023 1:48 PM CDT Michaela Lopez MD LAB_1 [facility] [address] [place] [address] documented in this encounter Visit Diagnoses Diagnosis Anxiety in in second trimester, antepartum (HRC)- Primary documented in this encounter Care Teams Coat Check Attendant Relationship Specialty [place] [address] [place] [address] PCP - General Family Practice 11/03/20 documented as of this encounter
--- OUTSIDE RECORDS SUMMARY | 2023-09-13 00:39 | XMS_ITS | Encounter Summary ---
Author Organization [facility] Address [address], [place] [address] Care Team Providers Care Stroke Coordinator Name Role Phone Randal Jeo MD Primary Care Provider [phone] Reason for Visit * Reason Comments Constipation Encounter Details Date Type Department Care Team (Late st Contact Info) Description 08/28/2023 Nurse Triage [facility] [address] [place], [place] [phone] [place] [address] [place], [place] [phone] Constipation Social History Tobacco Use Types Packs/Day [...] present > 24 hours Protocols used: - [id number], - Abdominal Pain Less Than 20 Weeks [id number] documented in this encounter Plan of Treatment Upcoming Encounters Date Type Department Care Team (Late st Contact Info) Description 09/14/2023 3:00 PM CDT Appointment [facility]-SAMPLE DISTRIBUTOR [address] [place] [address], [address] [place] [address] [place] [address] Guevara [address] [place] [address] [phone] 09/19/2023 10:00 AM CDT Appointment [facility] [address] [place] [address], [address] [place] [address] Maria Dolores Del Real, SOFTWARE QUALITY ANALYST, INSPECTOR METAL FABRICATING [address] [place] [address] 09/19/2023 11:00 AM CDT Appointment [facility] [address] [place] [address], [address] [place] [phone] Shaggy Smith MD [address] [place], [place] [address] [address] 10/13/2023 9:00 AM CDT Appointment [facility]-SAMPLE DISTRIBUTOR [address] [facility], [address] [place] [phone] Maria Dolores Del Real APRN, INSPECTOR METAL FABRICATING [address] [place] [address] documented as of this encounter Visit Diagnoses Not on filedocumented in this encounter Care Teams Stroke Coordinator Relationship Specialty [place] [address] [place] [address] PCP - General Family Practice 11/03/20 documented as of this encounter
--- OUTSIDE RECORDS SUMMARY | 2023-09-13 00:40 | XMS_ITS | Encounter Summary ---
Author Organization [employer] Address [address] [address] Care Team Providers Care Cost Reduction Engineer Name Role Phone Randal Joe MD Primary Care Provider [phone] Encounter Details Date Type Department Care Team (Latest Contact Info) Description 08/04/2023 Orders Only [facility] DEPARTMENT Provider, [place] [address] Social History Tobacco Use Types Packs/Day Years [...] Encounters Date Type Department Care Team (Late Contact Info) Description 09/14/2023 3:00 PM CDT Appointment [facility]-COTTON TIPPER [address] [facility], [address] [place] [address] [place] [address] [place], [place] 879797 09/19/2023 10:00 AM CDT Appointment [facility] [address] [place] [address] [phone] Maria Dolores Del Real, RADIO DIRECTOR, SIGNAL MANAGER [address] Gue[address] [place], [place] 9[address] 09/19/2023 11:00 AM CDT Appointment [facility] [address] [place] [address] [phone] Shaggy Smith MD [address] [place] [address] [phone] 10/13/2023 9:00 AM CDT Appointment [facility]COTTON TIPPER [address] [place] [address] [phone] Maria Dolores Del Real, RADIO DIRECTOR, SIGNAL MANAGER [address] Guevara [place], [place] 348[address] documented as of this encounter Procedures Procedure Name Priority Date/Time Associated Diagnosis Comments ULTRASOUND [place] 08/04/2023 documented in this encounter Results * ULTRASOUND [place] (08/04/2023) Anatomical Region Laterality Modality Other Interface Provider MD DUMMY/OTHER/AR documented in this encounter Visit Diagnoses Not on filedocumented in this encounter Care Teams Cost Reduction Engineer Relationship Specialty [place] [address] [place] [address] PCP - General Family Practice 11/03/20 documented as of this encounter
--- OUTSIDE RECORDS SUMMARY | 2023-09-13 00:40 | XMS_ITS | Encounter Summary ---
Author Organization [employer] Address [address], [place] [address] Care Team Providers Care Mechanical Handyman Name Role Phone Randal Joe MD Primary Care Provider [phone] Reason for Visit * Reason Comments Routine Visit Encounter Details Date Type Department Care Team (Late st Contact Info) Description 08/04/2023 8:30 AM CDT Routine [facility]-CONSTRUCTION EQUIPMENT MECHANIC HELPER [address] [phone] [place] [address] [address] Routine Visit Social History Tobacco [...] 09:11 AM Modules accepted: Orders * Sofiya oV MD - 08/04/2023 8:30 AM CDT New [...] Routine care -Patient was oriented to the [facility] Call System. -General patient counseling provided including: Genetic screening options- including First Trimester Screening and Quad Marker Screening for all women discussed. Additionally, NIPT and diagnostic options for women 35 and older reviewed. Supplements recommended- daily Vitamin, Vitamin D, and Forgan-3 Diet and Nutrition- Nausea and vomiting relief [...] Info) Description 09/14/2023 3:00 PM CDT Appointment [facility]-CONSTRUCTION EQUIPMENT MECHANIC HELPER [address] [facility], [address] [place] [phone] [place] [address] [place], [place] [phone] 09/19/2023 10:00 AM CDT Appointment [facility] [address] [facility], [address] [place] [address] Maria Dolores Del Real APRN, STEEL MELTER [address] [place], [place] [phone] 09/19/2023 11:00 AM CDT Appointment [facility] [address] [facility], [address] [place] [address] Shaggy Smith MD [address] [facility] [address] [facility] [place], [place] 398769 10/13/2023 9:00 AM CDT Appointment [facility]-CONSTRUCTION EQUIPMENT MECHANIC HELPER [address] [facility], [address] [place] [address] Maria Dolores Del Real, PRESSER AND SHAPER KNITTED GOODS, STEEL MELTER [address] [place] [address] Scheduled Orders Name Type Priority Associated Diagnoses Orde r Schedule OB CLINIC ULTRASOUND LIMITED Imaging New Routine 13 weeks gestation of Ordered: 08/04/2023 documented as of this encounter Results * (ABNORMAL) Urinalysis Routine, Micro/Culture if Pos: Clean Catch (08/04/2023 9:07 AM CDT) Urine Culture Comment Urinalysis results do not meet criteria for urine culture reflex. 08/04/2023 5:39 PM [facility] Urine Color Yellow 08/04/2023 5:39 PM [facility] Urine Clarity Hazy(A) Clear 08/04/2023 5:39 PM [facility] Specific [place], Urine 1.025 1.005 - 1.030 08/04/2023 5:39 PM [facility] PH Urine 6.5 5.0 - 8.0 08/04/2023 5:39 PM [facility] Protein, Urine Qual (mg/dL) Negative Neg/Trace 08/04/2023 5:39 PM [facility] Glucose Urine Qual (mg/dL) Negative Negative 08/04/2023 5:39 PM [facility] Ketones, Urine (mg/dL) Negative Negative 08/04/2023 5:39 PM [facility] Urobilinogen, Urine (EU/dL) 0.2 <2.0 08/04/2023 5:39 PM [facility] Bilirubin Urine Negative Negative 08/04/2023 5:39 PM [facility] Blood, Urine Negative Neg/Trace 08/04/2023 5:39 PM CDT [facility] Nitrite Urine Negative Negative 08/04/2023 5:39 PM T [facility] Leukocyte Est. Negative Negative 08/04/2023 5:39 PM CDT [facility] Urine Source Clean Catch 08/04/2023 5:39 PM CDT [facility] Urine URINE SPECIMEN COLLECTION, CLEAN CATCH / Unknown Non-blood Collection / Unknown 08/04/2023 9:07 AM CDT 08/04/2023 9:07 AM CDT Sofiya Vo MD LAB_1 [facility] [address] [place] [address] [address] [place] [address] documented in this encounter Visit Diagnoses Diagnosis Supervision of high risk in first trimester- Primary Unspecified high-risk Urinary frequency Anxiety (HRC) Anxiety state, unspecified 13 weeks gestation of state, incidental documented in this encounter Care Teams Mechanical Handyman Relationship Specialty [place] [address] [place] [address] PCP - General Family Practice 11/03/20 documented as of this encounter
--- OUTSIDE RECORDS SUMMARY | 2023-09-13 00:40 | XMS_ITS | Encounter Summary ---
Author Organization [employer] Address [address] [address] Care Team Providers Care Silk Examiner Name Role Phone Randal Joe MD Primary Care Provider [phone] Encounter Details Date Type Department Care Team (Latest Contact Info) Description 07/27/2023 Orders Only [facility] DEPARTMENT Provider, [place] [address] Social History Tobacco Use Types Packs/Day Years [...] Info) Description 09/14/2023 3:00 PM CDT Appointment [facility]-CAR SALESMAN [address] [facility], [address] [place] [address] [place] [address] [place], [place] 602027 09/19/2023 10:00 AM CDT Appointment [facility] [address] [place] [address] [phone] Maria Dolores Del Real, ANALYTICAL CLERK, PAN PULLER [address] Guevara Mason [place], [place] 479117 09/19/2023 11:00 AM CDT Appointment [facility] [address] [place] [address] [phone] Shaggy Smith MD [address] [place] [address] [phone] 10/13/2023 9:00 AM CDT Appointment [facility]CAR SALESMAN [address] [place] [address] [phone] Maria Dolores Del Real, ANALYTICAL CLERK, PAN PULLER [address] Guevara Mason [place], [place] [address] documented as of this encounter Procedures Procedure Name Priority Date/Time Associated Diagnosis Comments ULTRASOUND [place] 07/27/2023 documented in this encounter Results * ULTRASOUND [place] (07/27/2023) Anatomical Region Laterality Modality Other Interface Provider MD DUMMY/OTHER/AR documented in this encounter Visit Diagnoses Not on filedocumented in this encounter Care Teams Silk Examiner Relationship Specialty [place] [address] [place] [address] PCP - General Family Practice 11/03/20 documented as of this encounter
--- OUTSIDE RECORDS SUMMARY | 2023-09-13 00:40 | XMS_ITS | Encounter Summary ---
Author Organization [employer] Address [address] [address] Care Team Providers Care Executive Director Contract Shop Name Role Phone Randal Joe MD Primary Care Provider [phone] Reason for Visit * Reason Comments Concerns Encounter Details Date Type Department Care Team (Late st Contact Info) Description 08/16/2023 Telephone [facility]-FOUNTAIN WAITRESS/WAITER [address] [facility], [address] [address] Maria Dolores Del Real, CAMP HEAD COUNSELOR, GROCERY STORE COURTESY CLERK [address]ma[address] [place] [address] Concerns Social History Tobacco Use [...] Info) Description 09/14/2023 3:00 PM CDT Appointment [facility]-FOUNTAIN WAITRESS/WAITER [address] [place] [address], [address] [phone] [place] [address] Guevara [address] [place] [address] 09/19/2023 10:00 AM CDT Appointment [facility] [address] [place] [address] [phone] Maria Dolores Dle Real APRN, GROCERY STORE COURTESY CLERK [address] Guevara [address] [place] [address] 09/19/2023 11:00 AM CDT Appointment [facility] [address] [place] [address] 275 [place] [phone] Shaggy Smith MD [address] [place] [address] [place] [address] [place] 983029 10/13/2023 9:00 AM CDT Appointment [facility]-FOUNTAIN WAITRESS/WAITER [address] [place] [address], [address] [phone] Maria Dolores Del Real, CAMP HEAD COUNSELOR, GROCERY STORE COURTESY CLERK [address] [place] [address] documented as of this encounter Visit Diagnoses Not on filedocumented in this encounter Care Teams Executive Director Contract Shop Relationship Specialty [place] [address] [place] [address] PCP - General Family Practice 11/03/20 documented as of this encounter
--- OUTSIDE RECORDS SUMMARY | 2023-09-13 00:40 | XMS_ITS | Encounter Summary ---
Author Organization [employer] Address [address], [place] [address] Care Team Providers Care Button Decorating Machine Operator Name Role Phone Randal Joe MD Primary Care Provider [phone] Reason for Visit * Reason Comments Concerns constipation Encounter Details Date Type Department Care Team (Late st Contact Info) Description 08/22/2023 Nurse Triage [facility]-LEGAL PROCESS SPECIALIST [address] [facility], [address] [place] [address] Maria Dolores Del Real, EQUITY MANAGER, CONFECTIONERY LABORATORY MANAGER [address] [place] [address] Concerns (constipation) Social History Tobacco [...] for Disposition MILD constipation Protocols used: - Umewezacbdtj-[id number]-LE 16 weeks, pt calling today with concerns [...] Info) Description 09/14/2023 3:00 PM CDT Appointment [facility]-LEGAL PROCESS SPECIALIST [address] [facility], [facility] [address] [place] [phone] Miranda Metzger, [address] Guevara [address] [place] [address] 09/19/2023 10:00 AM CDT Appointment [facility] [address] [facility] [address] [place] [phone] Maria Dolores Del Real APRN, CONFECTIONERY LABORATORY MANAGER [address] Guevara [address] [place] [address] 09/19/2023 11:00 AM CDT Appointment [facility] 9855 [facility], [address] [place] [address] Shaggy Smith MD [address] [place] [address] [address] [facility] [place], [place] [address]66[address] 10/13/2023 9:00 AM CDT Appointment [facility]-LEGAL PROCESS SPECIALIST [address] [facility], [address] [place] [phone] Maria Dolores Del Real, EQUITY MANAGER, CONFECTIONERY LABORATORY MANAGER [address] [place], [place] 874407 documented as of this encounter Visit Diagnoses Not on filedocumented in this encounter Care Teams Button Decorating Machine Operator Relationship Specialty [place] [address] [place] [address] PCP - General Family Practice 11/03/20 documented as of this encounter
--- OUTSIDE RECORDS SUMMARY | 2023-09-13 00:40 | XMS_ITS | Encounter Summary ---
Author Organization [facility] Address [address] [place] [address] Care Team Providers Care Him Director Name Role Phone Randal Joe MD Primary Care Provider [phone] Encounter Details Date Type Department Care Team (Late st Contact Info) Description 08/12/2023 E-Visit [facility]-PRINTED CIRCUIT BOARD ASSEMBLY REPAIRER [address] [facility], [facility] [address] [place] [address] [place] [address] Social History Tobacco Use Types Packs/Day Years [...] Info) Description 09/14/2023 3:00 PM CDT Appointment [facility]-PRINTED CIRCUIT BOARD ASSEMBLY REPAIRER [address] [place] [address] [phone] [place] [address] [place], [place] 924107 09/19/2023 10:00 AM CDT Appointment [facility] [address] [place] [address] [phone] Maria Dolores Del Real, AIRPLANE ENGINEER, VALUE ENGINEER [address] [place] [address] Ismael Cuevas [place], [place] [phone] 09/19/2023 11:00 AM CDT Appointment [facility] [address] [place] [address] [phone] Shaggy Smith MD [address] [place] [address] 241669 10/13/2023 9:00 AM CDT Appointment [facility]-PRINTED CIRCUIT BOARD ASSEMBLY REPAIRER [address] [place] [address] [phone] Maria Dolores Del Real, AIRPLANE ENGINEER, VALUE ENGINEER [address] [place] [address] Ismael Mason [place], [place] [phone] documented as of this encounter Visit Diagnoses Not on filedocumented in this encounter Care Teams Him Director Relationship Specialty [place] [address] [place] [address] PCP - General Family Practice 11/03/20 documented as of this encounter
--- OUTSIDE RECORDS SUMMARY | 2023-09-13 00:40 | XMS_ITS | Encounter Summary ---
Author Organization [facility] Address [address] [address] Care Team Providers Care Media Specialist Name Role Phone Randal Joe MD Primary Care Provider [phone] Reason for Visit * Reason Comments Medication Questions Encounter Details Date Type Department Care Team (Late st Contact Info) Description 08/23/2023 Nurse Triage [facility] [address] [place], [place] [phone] [place] [address] [place], [place] [phone] Medication Questions Social History Tobacco Use Types [...] triager answers question Protocols used: Medication Question [id number] documented in this encounter Plan of Treatment Upcoming Encounters Date Type Department Care Team (Late st Contact Info) Description 09/14/2023 3:00 PM CDT Appointment [facility]-BUY BOAT OPERATOR [address] [place] [address], [address] [phone] Miranda Metzger DO [address] [place] [address] Dr Guevara [address] [place] [address] [phone] 09/19/2023 10:00 AM CDT Appointment [facility] [address] [place] [address] [phone] Maria Dolores Del Real, CONSTRUCTION CRAFT LABORER, PARTS SPECIALIST [address] [place] [address] [address] [place], [place] [address]87 09/19/2023 11:00 AM CDT Appointment [facility] [address] [place] [address], [address] [phone] Shaggy Smith MD [address] [place] [address] [address] [address] [address] [place], [place] 865419 10/13/2023 9:00 AM CDT Appointment [facility]-BUY BOAT OPERATOR [address] [place] [address], [address] [phone] Maria Dolores Del Real, CONSTRUCTION CRAFT LABORER, PARTS SPECIALIST [address] [place] [address] [place] [address] documented as of this encounter Visit Diagnoses Not on filedocumented in this encounter Care Teams Media Specialist Relationship Specialty [place] [address] [place] [address] PCP - General Family Practice 11/03/20 documented as of this encounter
--- OUTSIDE RECORDS SUMMARY | 2023-09-13 00:40 | XMS_ITS | Encounter Summary ---
Author Organization [employer] Address [address] [address] Care Team Providers Care Screw Machine Operator Name Role Phone Randal Joe MD Primary Care Provider [phone] Reason for Visit * Reason Comments BLEEDING, DURING Encounter Details Date Type Department Care Team (Late st Contact Info) Description 07/30/2023 Nurse Triage [facility] [address] [place] [address] [place] [address] [place] [address] BLEEDING, DURING Social History Tobacco [...] - Vaginal Bleeding Less Than 20 Weeks [id number] documented in this encounter Plan of Treatment Upcoming Encounters Date Type Department Care Team (Late st Contact Info) Description 09/14/2023 3:00 PM CDT Appointment [facility]-GUIDE FOREIGN TOUR [address] [facility], [facility] [address] [place] [phone] [place] [address] Guevara [address] [place] [address] [id number] 09/19/2023 10:00 AM CDT Appointment [facility] [address] [facility], [facility] [address] [place] [phone] Maria Dolores Del Real APRN, BANKING REPRESENTATIVE [address] Guevara [address] [place] [address] 09/19/2023 11:00 AM CDT Appointment [facility] [address] [place] [address], [address] [place] [phone] Shaggy Smith MD [address] Guevara [address] [place] [address] 10/13/2023 9:00 AM CDT Appointment [facility]-GUIDE FOREIGN TOUR [address] [facility], [address] [place] [phone] Maria Dolores Del Real APRN, BANKING REPRESENTATIVE [address] [place] [address] documented as of this encounter Visit Diagnoses Not on filedocumented in this encounter Care Teams Screw Machine Operator Relationship Specialty [place] [address] [place] [address] PCP - General Family Practice 11/03/20 documented as of this encounter
--- OUTSIDE RECORDS SUMMARY | 2023-09-13 00:40 | XMS_ITS | Encounter Summary ---
Author Organization [facility] Address [address], [place] [address] Care Team Providers Care Music Department Chair Name Role Phone Randal Joe MD Primary Care Provider [phone] Reason for Visit * Reason Comments Medication Questions Encounter Details Date Type Department Care Team (Late st Contact Info) Description 08/09/2023 Telephone [facility]-VISION REHABILITATION THERAPIST [address] [facility] [address] [place] [address] [place] [address] [facility] [address] [place] [address] Medication Questions Social History Tobacco [...] Info) Description 09/14/2023 3:00 PM CDT Appointment [facility]-VISION REHABILITATION THERAPIST [address] [place] [phone] Miranda [place]ger [place] [address] [place] [address] Dr Guevara [address] [place] [address] [phone] 09/19/2023 10:00 AM CDT Appointment [facility] [address] [place] [phone] Maria Dolores Del Real, CORK MIXER, LITHOGRAPHED PLATE INSPECTOR [address] [place] [address] Dr Gamez [place], [place] [phone] 09/19/2023 11:00 AM CDT Appointment [facility] [address] [place] [phone] Shaggy Smith MD [address] [place] [address] [place] [address] [place], [place] 561199 10/13/2023 9:00 AM CDT Appointment [facility]-VISION REHABILITATION THERAPIST [address] [place] [phone] Maria Dolores Del Real CORK MIXER, LITHOGRAPHED PLATE INSPECTOR [address] [place] [address] Dr Gamez [place], [place] [phone] documented as of this encounter Visit Diagnoses Not on filedocumented in this encounter Care Teams Music Department Chair Relationship Specialty [place] [address] [place] [address] PCP - General Family Practice 11/03/20 documented as of this encounter
--- OUTSIDE RECORDS SUMMARY | 2023-09-13 00:40 | XMS_ITS | Encounter Summary ---
Author Organization [employer] Address [address], [place] [address] Care Team Providers Care Chemist Inorganic Name Role Phone Randal Joe MD Primary Care Provider [phone] Encounter Details Date Type Department Care Team (Late st Contact Info) Description 07/27/2023 11:10 AM CDT Lab Visit [facility] [address] [place] [address], [facility] [address] [place] [address] Dysuria Social History Tobacco Use [...] Info) Description 09/14/2023 3:00 PM CDT Appointment [facility]-HOSPITAL DIRECTOR [address] [facility], [address] [place] [phone] [place] [address] Guevara Mason [place], [place] 620727 09/19/2023 10:00 AM CDT Appointment [facility] [address] [place] [phone] Maria Dolores Del Real, INVESTMENT SALES ASSISTANT, LEPIDOPTERIST [address] Guevara Mason [place], [place] [phone] 09/19/2023 11:00 AM CDT Appointment [facility] [address] [place] [address], [address] [phone] Shaggy Smith MD [address] [place] [address] [phone] 10/13/2023 9:00 AM CDT Appointment [facility]-HOSPITAL DIRECTOR [address] [place] [address] [phone] Maria Dolores Del Real, INVESTMENT SALES ASSISTANT, LEPIDOPTERIST [address] [place] [address] Dr Guevara Mason [place], [place] 580367 documented as of this encounter Procedures Procedure Name Priority Date/Time Associated Diagnosis Comments URINALYSIS ROUTINE, MICRO/CULTURE IF POS Routine 07/27/2023 10:58 AM CDT Dysuria documented in this encounter Results * Urinalysis Routine, Micro/Culture if Pos: Clean Catch (07/27/2023 10:58 AM CDT) Urine Culture Comment Urinalysis results do not meet criteria for urine culture reflex. 07/27/2023 6:35 PM CDT [facility] Urine Color Yellow 07/27/2023 6:[address] [facility] Urine Clarity Clear Clear 07/27/2023 6:[address] [facility] Specific [place], Urine 1.025 1.005 - 1.030 07/27/2023 6:[address] [facility] PH Urine 6.5 5.0 - 8.0 07/27/2023 6:[address] [facility] Protein, Urine Qual (mg/dL) Negative Neg/Trace 07/27/2023 6:[address] [facility] Glucose Urine Qual (mg/dL) Negative Negative 07/27/2023 6:[address] [facility] Ketones, Urine (mg/dL) Negative Negative 07/27/2023 6:[address] [facility] Urobilinogen, Urine (EU/dL) 0.2 <2.0 07/27/2023 6:[address] [facility] Bilirubin Urine Negative Negative 07/27/2023 6:[address] [facility] Blood, Urine Negative Neg/Trace 07/27/2023 6:[address] [facility] Nitrite Urine Negative Negative 07/27/2023 6:[address] [facility] Leukocyte Est. Negative Negative 07/27/2023 6:[address] [facility] Urine Source Clean Catch 07/27/2023 6:[address] [facility] Urine URINE SPECIMEN COLLECTION, CLEAN CATCH / Unknown Non-blood Collection / Unknown 07/27/2023 10:58 AM CDT 07/27/2023 10:58 AM T Sofiya Vo MD LAB_1 [facility] [address] [place] [address] [address] [place] [address] documented in this encounter Visit Diagnoses Diagnosis Dysuria documented in this encounter Care Teams Chemist Inorganic Relationship Specialty [place] [address] [place] [address] PCP - General Family Practice 11/03/20 documented as of this encounter
--- OUTSIDE RECORDS SUMMARY | 2023-09-13 00:40 | XMS_ITS | Encounter Summary ---
Author Organization [employer] Address [address], [place] [address] Care Team Providers Care Aquatics Assistant Department Head Name Role Phone Randal Joe MD Primary Care Provider [phone] Reason for Visit * Reason Comments CHANGING APPOINTMENTS Encounter Details Date Type Department Care Team (Late st Contact Info) Description 08/04/2023 Telephone [facility]-PAPER HANDLER [address] [phone] Maria Dolores Del Real, LENS MOLD SETTER, GRAIN OILSEED OR PASTURE FARM WORKER [address]018 [facility] Ismael [address] [place] [address] CHANGING APPOINTMENTS Social History Tobacco [...] 2:15 PM Maria Dolores Del Real APRN, GRAIN OILSEED OR PASTURE FARM WORKER [facility]-PAPER HANDLER [facility] documented in this encounter Plan of Treatment Upcoming Encounters Date Type Department Care Team (Late st Contact Info) Description 09/14/2023 3:00 PM CDT Appointment [facility]-PAPER HANDLER [address]75 [facility], [address] [phone] [place] [address] Guevara [address] [place] [address] 09/19/2023 10:00 AM CDT Appointment [facility] [address] [facility], [address] [phone] Maria Dolores Del Real APRN, GRAIN OILSEED OR PASTURE FARM WORKER [address] Guevara [address] [place] [address] 09/19/2023 11:00 AM CDT Appointment [facility] [address] [place] [address], [address] [place] [phone] Shaggy Smith MD [address] [place] [address] Dr Guevara [facility] [place] [address] 10/13/2023 9:00 AM CDT Appointment [facility]-PAPER HANDLER [address] [facility], [address] [place] [address] Maria Dolores Del Real, LENS MOLD SETTER, GRAIN OILSEED OR PASTURE FARM WORKER [address] Guevara [address] [place] 205067 documented as of this encounter Visit Diagnoses Not on filedocumented in this encounter Care Teams Aquatics Assistant Department Head Relationship Specialty [place] [address] [place] [address] PCP - General Family Practice 11/03/20 documented as of this encounter
--- OUTSIDE RECORDS SUMMARY | 2023-09-13 00:40 | XMS_ITS | Encounter Summary ---
Author Organization [facility] Address [address] [address] Care Team Providers Care Wrecking Crane Engine Operator Name Role Phone Randal Joe MD Primary Care Provider Reason for Visit * Reason Comments Lab/Rad Request Encounter Details Date Type Department Care Team (Late st Contact Info) Description 07/28/2023 Telephone [facility]-ALUMINUM CONTAINER TESTER [address] [facility], [facility] [address] [place] [address] [place] [address] [facility] 420 [place] [address] Lab/Rad Request Social History Tobacco [...] [facility] not [...] Info) Description 09/14/2023 3:00 PM CDT Appointment [facility]-ALUMINUM CONTAINER TESTER [address] [place] [address], [address] [phone] [place] [address] [place] [address] 865277 09/19/2023 10:00 AM CDT Appointment [facility] [address] [place] [address] [phone] Maria Dolores Del Real APRN, SMOKING PIPE LINER [address] [place] [address] [phone] 09/19/2023 11:00 AM CDT Appointment [facility] [address] [place] [address], [address] [place] [phone] Shaggy Smith MD [address] [place] [address] [phone] 10/13/2023 9:00 AM CDT Appointment [facility]-ALUMINUM CONTAINER TESTER [address] [place] [address] [phone] Maria Dolores Del Real APRN, SMOKING PIPE LINER [address] [place] [address] [phone] documented as of this encounter Visit Diagnoses Not on filedocumented in this encounter Care Teams Wrecking Crane Engine Operator Relationship Specialty [place] [address] [place] [address] PCP - General Family Practice 11/03/20 documented as of this encounter
--- OUTSIDE RECORDS SUMMARY | 2023-09-13 00:40 | XMS_ITS | Encounter Summary ---
Author Organization [employer] Address [address] [address] Care Team Providers Care Drawing Box Tender Name Role Phone Randal Joe MD Primary Care Provider [phone] Reason for Visit * Procedure/Equipment (Routine) - Incomplete Specialty Diagnoses / Procedures Referred By Contac t Referred To Contact Diagnoses Supervision of high risk in first trimester Primigravida of advanced maternal age in first trimester Procedures MFM US OB First Trimester Ultrasound Maria Dolores Del Real APRN, PARTNER MANAGER [address] [address]var[address] [place] [address] Referral ID Status Reason Start Date Expiration Date V isits Requested Visits Authorized [id number] Incomplete 07/30/2023 10/28/2024 1 1 Encounter Details Date Type Department Care Team (Late st Contact Info) Description 08/01/2023 8:30 AM CDT Ancillary Procedure [facility] [address] [facility], [address] [place] [address] Maria Dolores Del Real APRN, PARTNER MANAGER [address] [address] [place] [address] Supervision of high risk in [...] Info) Description 09/14/2023 3:00 PM CDT Appointment [facility]-WAX MOLDER [address] [place] [address] [phone] [place] [address] Guevara [address] [place] [address] [phone] 09/19/2023 10:00 AM CDT Appointment [facility] [address] [place] [address] [phone] Maria Dolores Del Real, KRAFT DIGESTER OPERATOR, PARTNER MANAGER [address] Guevara [address] [place] [address] [phone] 09/19/2023 11:00 AM CDT Appointment [facility] [address] [place] [address] [place] [phone] Shaggy Smith MD [address] [place] [address] [place] [phone] 10/13/2023 9:00 AM CDT Appointment [facility]-WAX MOLDER [address] [place] [address] [phone] Maria Dolores Del Real APRN, PARTNER MANAGER [address] [place] [address] Dr Ismael [address] [place], [place] [phone] documented as of this encounter Procedures Procedure Name Priority Date/Time Associated Diagnosis Comments [facility] US OB FIRST TRIMESTER Routine 08/01/2023 8:59 AM CDT Supervision of high risk in first trimester Primigravida of advanced maternal age in first trimester documented in this encounter Results * [facility] US OB First Trimester Ultrasound (08/01/2023 8:59 [...] the original result were not included. ?? [facility] [address] [facility], [address] [place] [address] Dept Dept Patient Name: Alisia Velasquez ??Referred By: Attending: Maria Dolores Del Real APRN, SEBASTIÁN Smith MD Patient ??New Vehicle Sales Consultant: Dorothy AMBROSE, Age: 4 1985, 38 y.o. [...] grossly normal Nasal Bone appears normal ??Cardiac [place]enton appears normal Maxilla appears normal ??3 Vessel [...] still recommended. ?? Maria Dolores Del Real KRAFT DIGESTER OPERATOR, PARTNER MANAGER RAD MFM US documented in this encounter Visit Diagnoses Diagnosis Supervision of high risk in first trimester Unspecified high-risk Primigravida of advanced maternal age in first trimester documented in this encounter Care Teams Drawing Box Tender Relationship Specialty [place] [address] [place] [address] PCP - General Family Practice 11/03/20 documented as of this encounter
--- OUTSIDE RECORDS SUMMARY | 2023-09-13 00:40 | XMS_ITS | Encounter Summary ---
Author Organization [employer] Address [address] [address] Care Team Providers Care Commissary Worker Name Role Phone Randal Joe MD Primary Care Provider [phone] Reason for Visit * Reason Comments MEDICATION, NOS Encounter Details Date Type Department Care Team (Late st Contact Info) Description 08/19/2023 Telephone [facility]-FUTURE [employer] ADVISOR [address]41 [facility], [facility] [address] [place] [address] Maria Dolores Del Real, PRINCIPAL NETWORK ARCHITECT, CAR AND YARD SUPERVISOR [address] Ismael [address] [place] [address] MEDICATION, NOS Social History Tobacco [...] Info) Description 09/14/2023 3:00 PM CDT Appointment [facility]-[employer] ADVISOR [address] [facility], [address] [place] [phone] [place] [address] [place] [address] [place] [address] 09/19/2023 10:00 AM CDT Appointment [facility] 14987 [facility], [facility] [address] [place] [phone] Maria Dolores Del Real, PRINCIPAL NETWORK ARCHITECT, CAR AND YARD SUPERVISOR [address] Guevara [address] [place], [place] [phone] 09/19/2023 11:00 AM CDT Appointment [facility] [address] [place] [address], [address] [place] [phone] Shaggy Smith MD [address] [place] [address] 275 [place], [place] [phone] 10/13/2023 9:00 AM CDT Appointment [facility]-[employer] ADVISOR [address]4972 [facility] [address] [place] [phone] Maria Dolores Del Real, PRINCIPAL NETWORK ARCHITECT, CAR AND YARD SUPERVISOR [address] Guevara [address] [place] [address] [phone] documented as of this encounter Visit Diagnoses Not on filedocumented in this encounter Care Teams Commissary Worker Relationship Specialty [place] [address] [place] [address] PCP - General Family Practice 11/03/20 documented as of this encounter
--- OUTSIDE RECORDS SUMMARY | 2023-09-13 00:40 | XMS_ITS | Encounter Summary ---
Author Organization [employer] Address [address], [place] [address] Care Team Providers Care Desk Editor Name Role Phone Randal Joe MD Primary Care Provider [phone] Reason for Visit * Reason Comments Medication Questions Encounter Details Date Type Department Care Team (Late st Contact Info) Description 08/24/2023 Telephone [facility]-TECHNOLOGY LAB TEACHER [address] [facility], [address] [phone] Maria Dolores Del Real, SECURITY INFRASTRUCTURE ENGINEER, STERILE PROCESSING TECHNOLOGIST [address] [facility] Ismael [address] [place] [address] Medication Questions Social History Tobacco [...] Info) Description 09/14/2023 3:00 PM CDT Appointment [facility]-TECHNOLOGY LAB TEACHER [address] [place] [address], [address] [phone] [place] [address] Guevara [address] [place] [address] [phone] 09/19/2023 10:00 AM CDT Appointment [facility] [address] [facility], [facility] [address] [place] [phone] Maria Dolores Del Real, SECURITY INFRASTRUCTURE ENGINEER, STERILE PROCESSING TECHNOLOGIST [address] [address] 09/19/2023 11:00 AM CDT Appointment [facility] [address] [place] [address], [address] [place] [phone] Shaggy Smith MD [address] [place], [place] [address]JUSTIN [place] [address] 10/13/2023 9:00 AM CDT Appointment [facility]-TECHNOLOGY LAB TEACHER [address] [facility], [facility] [address] [place] [phone] Maria Dolores Del Real APRN, STERILE PROCESSING TECHNOLOGIST [address] [address] documented as of this encounter Visit Diagnoses Not on filedocumented in this encounter Care Teams Desk Editor Relationship Specialty [place] [address] [place] [address] PCP - General Family Practice 11/03/20 documented as of this encounter
--- OUTSIDE RECORDS SUMMARY | 2023-09-13 00:40 | XMS_ITS | Encounter Summary ---
Author Organization [employer] Address [address], [place] [address] Care Team Providers Care Instructional Technology Coach Name Role Phone Randal Joe MD Primary Care Provider [phone] Encounter Details Date Type Department Care Team (Late st Contact Info) Description 08/04/2023 9:00 AM CDT Lab Visit [facility] [address] [place] [address], [facility] [address] [place] [address] Urinary frequency Social History Tobacco [...] Info) Description 09/14/2023 3:00 PM CDT Appointment [facility]-STUDENT ACTIVITIES DIRECTOR 50500 [facility], [address] [place] [phone] [place] [address] Guevara Mason [place], [place] 559667 09/19/2023 10:00 AM CDT Appointment [facility] [address] [place] [address] [phone] Maria Dolores Del Real, FLOWER PLANTER, MACHINE OPERATOR GENERAL [address] [place] [address] Dr Guevara Mason [place], [place] [phone] 09/19/2023 11:00 AM CDT Appointment [facility] [address] [place] [address] [phone] Shaggy Smith MD [address] [place] [address] [phone] 10/13/2023 9:00 AM CDT Appointment [facility]-STUDENT ACTIVITIES DIRECTOR [address] [place] [address] [phone] Maria Dolores Del Real, FLOWER PLANTER, MACHINE OPERATOR GENERAL [address] [place] [address] Dr Guevara Mason [place], [place] [phone] documented as of this encounter Procedures Procedure Name Priority Date/Time Associated Diagnosis Comments URINALYSIS ROUTINE, MICRO/CULTURE IF POS Routine 08/04/2023 9:07 AM CDT Urinary frequency documented in this encounter Results * (ABNORMAL) Urinalysis Routine, Micro/Culture if Pos: Clean Catch (08/04/2023 9:07 AM CDT) Urine Culture Comment Urinalysis results do not meet criteria for urine culture reflex. 08/04/2023 5:39 PM CDT [facility] Urine Color Yellow 08/04/2023 5:39 PM [facility] Urine Clarity Hazy(A) Clear 08/04/2023 5:39 PM [facility] Specific [place], Urine 1.025 1.005 - 1.030 08/04/2023 5:39 PM [facility] PH Urine 6.5 5.0 - 8.0 08/04/2023 5:39 PM [facility] Protein, Urine Qual (mg/dL) Negative Neg/Trace 08/04/2023 5:39 PM [facility] Glucose Urine Qual (mg/dL) Negative Negative 08/04/2023 5:39 PM [facility] Ketones, Urine (mg/dL) Negative Negative 08/04/2023 5:39 PM [facility] Urobilinogen, Urine (EU/dL) 0.2 <2.0 08/04/2023 5:39 PM [facility] Bilirubin Urine Negative Negative 08/04/2023 5:39 PM [facility] Blood, Urine Negative Neg/Trace 08/04/2023 5:39 PM [facility] Nitrite Urine Negative Negative 08/04/2023 5:39 PM [facility] Leukocyte Est. Negative Negative 08/04/2023 5:39 PM [facility] Urine Source Clean Catch 08/04/2023 5:39 PM [facility] Urine URINE SPECIMEN COLLECTION, CLEAN CATCH / Unknown Non-blood Collection / Unknown 08/04/2023 9:07 AM CDT 08/04/2023 9:07 AM T Sofiya Vo MD LAB_1 [facility] [address] [place] [address], [facility] [address] [place] [address] documented in this encounter Visit Diagnoses Diagnosis Urinary frequency documented in this encounter Care Teams Instructional Technology Coach Relationship Specialty [place] [address] [place] [address] PCP - General Family Practice 11/03/20 documented as of this encounter
--- OUTSIDE RECORDS SUMMARY | 2023-09-13 00:40 | XMS_ITS | Encounter Summary ---
Author Organization [employer] Address [address], [place] [address] Care Team Providers Care Transformation Consultant Name Role Phone Randal Joe MD Primary Care Provider [phone] Reason for Visit * Reason Comments Concerns Stool Color Change Encounter Details Date Type Department Care Team (Late st Contact Info) Description 08/08/2023 Nurse Triage [facility] [address] [place], [place] [phone] [place] [address] [place] [address] Concerns; Stool Color Change Social [...] Green stools Protocols used: Stools - Unusual [id number] documented in this encounter Plan of Treatment Upcoming Encounters Date Type Department Care Team (Late st Contact Info) Description 09/14/2023 3:00 PM CDT Appointment [facility]-STITCHER STANDARD MACHINE [id number] [place] [address], [address] [phone] [place] [address] Guevara [address] [place] [id number] 09/19/2023 10:00 AM CDT Appointment [facility] [address] [place] [address] [phone] Maria Dolores Del Real APRN, FLAKE MILLER HELPER [address] Guevara [address] [place] [address] [id number] 09/19/2023 11:00 AM CDT Appointment [facility] [address] [place] [address], [address] [place] [phone] Shaggy Smith MD [address] [place] [address] [place] [address] [place] [phone] 10/13/2023 9:00 AM CDT Appointment [facility]-STITCHER STANDARD MACHINE [address] [place] [address], [address] [phone] Maria Dolores Del Real, PROFESSOR OF ECONOMICS, FLAKE MILLER HELPER [address] [place] [address] documented as of this encounter Visit Diagnoses Not on filedocumented in this encounter Care Teams Transformation Consultant Relationship Specialty [place] [address] [place] [address] PCP - General Family Practice 11/03/20 documented as of this encounter
--- OUTSIDE RECORDS SUMMARY | 2023-09-13 00:40 | XMS_ITS | Encounter Summary ---
Author Organization [facility] Address [address], [place] [address] Care Team Providers Care Cloth Shader Name Role Phone Randal Joe MD Primary Care Provider [phone] Reason for Visit * Reason Comments ANXIETY Routine Visit Encounter Details Date Type Department Care Team (Late st Contact Info) Description 08/15/2023 8:45 AM CDT Routine [facility]-WIRE FRAME DIPPER [address] [phone] Maria Dolores Del Real, CUSTOMS AND BORDER PROTECTION OFFICER, CABLE SPLICING TECHNICIAN [address] [facility] [address] [place] [address] ANXIETY; Routine Visit Social History [...] Progress Notes * Gt, Maria Dolores Cabral, CUSTOMS AND BORDER PROTECTION OFFICER, CABLE SPLICING TECHNICIAN - 08/15/2023 8:45 AM CDT TIFFANY GUERIN [...] bleeding. She has also called in to sales team manager for various concerns and questions. Concerned about [...] Info) Description 09/14/2023 3:00 PM CDT Appointment [facility]-WIRE FRAME DIPPER [address] [facility], [facility] [address] [place] [phone] [place] [address] G[place]var[place] [address] [place] [address] [id number] 09/19/2023 10:00 AM CDT Appointment [facility] [address] [facility], [address] [place] [phone] Maria Dolores Del Real APRN, CABLE SPLICING TECHNICIAN [address] Guevara [address] [place] [address] 09/19/2023 11:00 AM CDT Appointment [facility] [address] [place] [address], [address] [place] [phone] Shaggy Smith MD [address] [place] [address] [facility] [address] [place] [address] 10/13/2023 9:00 AM CDT Appointment [facility]-WIRE FRAME DIPPER [address] [facility], [address] [place] [address] Maria Dolores Del Real APRN, CABLE SPLICING TECHNICIAN [address] [place] [address]ma[address] [place], [place] [phone] documented as of this encounter Visit Diagnoses Diagnosis Anxiety during ([facility])- Primary documented in this encounter Care Teams Cloth Shader Relationship Specialty [place] [address] [place] [address] PCP - General Family Practice 11/03/20 documented as of this encounter
--- OUTSIDE RECORDS SUMMARY | 2023-09-13 00:41 | XMS_ITS | Encounter Summary ---
Author Organization [employer] Address [address], [place] [address] Care Team Providers Care Waiter/Waitress Economy Class Name Role Phone Randal Joe MD Primary Care Provider [phone] Reason for Visit * Reason Comments QUESTIONS, GENERAL Entered automaticall y based on patient selection in [employer]. Encounter Details Date Type Department Care Team (Late st Contact Info) Description 07/13/2023 11:55 AM CDT E-Visit [facility]-TECHNICAL ADMINISTRATOR [address] [facility], [facility] [address] [place] [phone] Maria Dolores Del Real, IN STORE BANKER, EAR NOSE THROAT PHYSICIAN [address] [facility] Ismael [address] [place] [address] Chief Comp: QUESTIONS, GENERAL Social History [...] Info) Description 09/14/2023 3:00 PM CDT Appointment [facility]-TECHNICAL ADMINISTRATOR [address] [place] [address] [phone] Miranda [place] [address] [place] [address] Dr Game[place], [place] [phone] 09/19/2023 10:00 AM CDT Appointment [facility] [address] [place] [address] [phone] Maria Dolores Del Real, IN STORE BANKER, EAR NOSE THROAT PHYSICIAN [address] Guevara [address] [place] [address] [id number] 09/19/2023 11:00 AM CDT Appointment [facility] [address] [place] [address], [facility] [address] [place] [phone] Shaggy Smith MD [address] [place], [place] [address], [place] 1728[address] 10/13/2023 9:00 AM CDT Appointment [facility]-TECHNICAL ADMINISTRATOR [address] [place] [phone] Maria Dolores Del Real IN STORE BANKER, EAR NOSE THROAT PHYSICIAN [address] Guevara [address] [place] [address] [phone] documented as of this encounter Visit Diagnoses Not on filedocumented in this encounter Care Teams Waiter/Waitress Economy Class Relationship Specialty [place] [address] [place] [address] PCP - General Family Practice 11/03/20 documented as of this encounter
--- OUTSIDE RECORDS SUMMARY | 2023-09-13 00:41 | XMS_ITS | Encounter Summary ---
Author Organization [employer] Address [address], [place] [address] Care Team Providers Care Room Manager Name Role Phone Randal Joe MD Primary Care Provider [phone] Reason for Visit * Reason Comments Concerns Encounter Details Date Type Department Care Team (Late st Contact Info) Description 07/08/2023 Telephone [facility] [address] [place] [address] [place] [address] [place] [address] Concerns Social History Tobacco Use [...] Description 09/14/2023 3:00 PM CDT Appointment [facility]-BULWARK CARPENTER [address] [place] [address], [facility] [address] [place] [phone] [place] [address] [place] [address] [address] 09/19/2023 10:00 AM CDT Appointment [facility] [address] [place] [address] [phone] Maria Dolores Del Real, EVP STRATEGY, COMMUNITY PROGRAM ASSISTANT [address] [place] [address] [address] 09/19/2023 11:00 AM CDT Appointment [facility] [address] [place] [address], [address] [place] [phone] Shaggy Smith MD [address] [place] [address] [place] [address] [place], [place] [phone] 10/13/2023 9:00 AM CDT Appointment [facility]-BULWARK CARPENTER [address] [facility], [address] [place] [phone] Maria Dolores Del Real APRN, COMMUNITY PROGRAM ASSISTANT [address] [place] [address]ma[address] [place] [address] documented as of this encounter Visit Diagnoses Not on filedocumented in this encounter Care Teams Room Manager Relationship Specialty [place] [address] [place] [address] PCP - General Family Practice 11/03/20 documented as of this encounter
--- OUTSIDE RECORDS SUMMARY | 2023-09-13 00:41 | XMS_ITS | Encounter Summary ---
Author Organization [employer] Address [address] [address] Care Team Providers Care Basket Filler Name Role Phone Randal Joe MD Primary Care Provider [phone] Reason for Visit * Reason Comments Appointment Questions Encounter Details Date Type Department Care Team (Late st Contact Info) Description 07/13/2023 Telephone [facility] [place] [address] [facility], [address] [phone] Maria Dolores Del Real, GUN WELDER, MARKETING SERVICES VICE PRESIDENT [address] [facility] [address]mael [address] [place] [address] Appointment Questions Social History Tobacco [...] Info) Description 09/14/2023 3:00 PM CDT Appointment [facility] [place] [address] [facility], [address] [place] [phone] [place] [address] G[place]var[place] [address] [place] [address] [phone] 09/19/2023 10:00 AM CDT Appointment [facility] [address] [facility], [address] [phone] Maria Dolores Del Real, GUN WELDER, MARKETING SERVICES VICE PRESIDENT [address] [place] [address] 09/19/2023 11:00 AM CDT Appointment [facility] [address] [place] [address], [address] [place] [phone] Shaggy Smith MD [address] [place] [address] Dr [address] [facility] [place] [address] 10/13/2023 9:00 AM CDT Appointment [facility] [place] [address] [facility], [facility] [address] [place] [phone] Maria Dolores Del Real APRN, MARKETING SERVICES VICE PRESIDENT [address] [place] [address] documented as of this encounter Visit Diagnoses Not on filedocumented in this encounter Care Teams Basket Filler Relationship Specialty [place] [address] [place] [address] PCP - General Family Practice 11/03/20 documented as of this encounter
--- OUTSIDE RECORDS SUMMARY | 2023-09-13 00:41 | XMS_ITS | Encounter Summary ---
Author Organization [facility] Address [address] [address] Care Team Providers Care Fretted Instrument Maker Hand Name Role Phone Randal Joe MD Primary Care Provider [phone] Reason for Referral * Procedure/Equipment (Routine) - Incomplete Specialty Diagnoses / Procedures Referred By Contac t Referred To Contact Diagnoses Supervision of high risk in first trimester Primigravida of advanced maternal age in first trimester Procedures MFM US OB Detailed Anatomy Maria Dolores Del Real APRN, CNP [address] [place], [place] [phone] Referral ID Status Reason Start Date Expiration Date V isits Requested Visits Authorized [id number] Incomplete 09/17/2023 12/16/2024 1 1 * Procedure/Equipment (Routine) - Incomplete Specialty Diagnoses / Procedures Referred By Contac t Referred To Contact Diagnoses Supervision of high risk in first trimester Primigravida of advanced maternal age in first trimester Procedures MFM US OB First Trimester Ultrasound Maria Dolores Del Real APRN, CNP [address] [address] [place] [id number] Referral ID Status Reason Start Date Expiration Date V isits Requested Visits Authorized [id number] Incomplete 07/30/2023 10/28/2024 1 1 * Consult/Transfer Care (Routine) - New Request Specialty Diagnoses / Procedures Referred By Andriy bradford Referred To Contact Diagnoses Supervision of high risk in first trimester Primigravida of advanced maternal age in first trimester Maria Dolores Del Real APRN, CNP [address] Guevara [address] [place] [phone] Referral ID Status Reason Start Date Expiration Date V isits Requested Visits Authorized [id number] New Request 07/07/2023 10/05/2024 1 1 Scheduling Instructions Your clinician has recommended an appointment with [facility]. A appointment scheduler will contact you to assist you in setting up this appointment. If you have not been contacted within one week or have any questions, please call [phone]. We suggest you call your health insurance [...] Info) Description 07/07/2023 8:30 AM CDT Initial [facility]-EMERGENCY DEPARTMENT NURSE [address] [facility], [address] [place] [phone] Maria Dolores Del Real APRN, CNP [address] [address] [place] [address] INITIAL VISIT Social History Tobacco Use [...] Patient Instructions* Maria Dolores Del Real APRN, NETWORK DEVELOPMENT COORDINATOR - 07/07/2023 8:30 AM CDT Images from [...] our handout on Genetic Disease Carrier Screening: [email or web address] [email or web address].pdf Drinking any amount of alcohol during is not safe. Watch this short video by [employer] [place]: Proof: Some Think Drinking During is OK. It???s Not. - Ronda video Marijuana use is never recommended while or . Learn why here: https://[employer] [employer]/69230.pdf is a time of transition. If you feel overwhelmed, anxious or depressed, see the followingresources: Emotional Distress During and After : https://[employer]/92023.pdf Resources & Support for New & Expecting Parents: https://[employer] [employer]/27025.pdf The 3 books provided throughout are also available digitally. Here are the links to each book: Your Guide to : https://user-BioRelix.Polimax.Lasso Media/ToiicyBdkeoyzh-Ndpm-Qttaj-rj-h-Hiigjsg- Preparing for Childbirth: https://user-Crowdx.Lasso Media/GmezbcVxvttijo-Cwr-Emgt-of-Motherhood Taking Care of You and Your Centre Hall: https://userTherapeutic Monitoring Services.Polimax.Lasso Media/XishhjKxjlnvvv-V-Kac-Beginning Weed for our free herb called ???myHealthyPregnancy?? powered by [facility]. The herb offers many quick articles and videos on , labor, , , and newborncare. Find instructions here: Or click on this link: myHealthyPregnancy tracker herb [facility] In [place], soon-to-be, new, and nursing parents have legal protections to help keep them safe and healthy in the workplace. Find more information here: Or click on this link: Workers And New Parents * Attachments The following attachments cannot be sent through Care Everywhere. * !Aspirin in : Low-dose aspirin for the prevention or delay of preeclampia (Somali) documented in this encounter Progress Notes * [...] patient is agreeable to this JENNIFER: 02/04/2024. 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 Objective: Estimated body mass index is 28.76 [...] Info) Description 09/14/2023 3:00 PM CDT Appointment [facility]-EMERGENCY DEPARTMENT NURSE [address] [place] [address] [phone] Miranda Metzger DO [address] [place] [address] [phone] 09/19/2023 10:00 AM CDT App[facility]ment [facility] [address] [place] [address] [phone] Maria Dolores Del Real, PERSONAL SHOPPER, NETWORK DEVELOPMENT COORDINATOR [address] [place] [address] Dr [address]z [place], [place] [phone] 09/19/2023 11:00 AM CDT Appointment [facility] [address] [place] [address] [phone] Shaggy Smith MD [address] [place] [address] [address] [place], [place] [phone] 10/13/2023 9:00 AM CDT Appointment [facility]-EMERGENCY DEPARTMENT NURSE [address] [place] [address] [phone] Maria Dolores Del Real PERSONAL SHOPPER, NETWORK DEVELOPMENT COORDINATOR [address] Gamez [place], [place] [phone] Scheduled Orders Name Type Priority Associated Diagnoses [...] the original result were not included. ?? [facility] [address] [facility], [address] [place] [address] Dept Dept Patient Name: Alisia Velasquez ??Referred By: Attending: Maria Dolores Del Real APRN, SEBASTIÁN Smith MD Patient ??Osteologist: Dorothy Moran RDMS , Age: 4 1985, [...] grossly normal Nasal Bone appears normal ??Cardiac Renick appears normal Maxilla appears normal ??3 Vessel [...] Maria Dolores Del Real APRN, CNP RAD [facility] US * Chlamydia & GC (14 Years and Older): Vagina (07/07/2023 10:00 AM CDT) [facility] Chlamydia Trachomatis STD Not Detected Not Detected 07/08/2023 1:20 AM CDT [facility] N. gonorrhoeae STD Not Detected Not Detected 07/08/2023 1:20 AM CDT [facility] Swab STD SPECIMEN FROM VAGINA / Unknown Non-blood Collection / Unknown 07/07/2023 10:00 AM CDT 07/07/2023 10:02 AM CDT [facility] - 07/08/2023 1:20 AM CDT Test performed by Bus Driver Mediated Amplification (TMA). Maria Dolores Del Real APRN, CNP LAB_1 [facility] [address] [id number] * Panoradc NIPT (07/07/2023 9:48 AM CDT) [facility] See Scanned Report 07/16/2023 10:34 AM CDT [employer]. Blood Venipuncture / Unknown 07/07/2023 9:48 AM CDT 07/07/2023 9:48 AM CDT Maria Dolores Del Real APRN, CNP LAB_1 [facility]NOLD ALCARAZ. [address], [address] [place] [address] * Treponema Screen (Syphilis) (07/07/2023 9:48 AM CDT) Treponema Screen Result 0.127 {s_co_ratio } 07/07/2023 4:38 PM CDT [facility] Treponema Screen Interpretation Non Reactive Non Reactive 07/07/2023 4:38 PM CDT [facility] Blood Venipuncture / Unknown 07/07/2023 9:48 AM CDT 07/07/2023 9:48 AM CDT Maria Dolores Del Real APRN, CNP LAB_1 Performing Organization Address City/[facility]/ZIP Co de Phone Number [facility] [place] [address], [facility] * (ABNORMAL) Urine Culture (07/07/2023 9:48 AM CDT) Pathologist [facility] Urine Culture Growth(A) 07/08/2023 9:14 PM [facility] Urine Culture <10,000 CFU/mL Mixed Bacterial Growth 07/08/2023 9:14 PM T [facility] Comment: Mixed Bacterial Growth indicates the specimen is likely contaminated at collection with urogenital and/or fecal nicole. The presence of organisms at <10,000 cfu/ml in culture, UTI unlikely. Urine URINE SPECIMEN COLLECTION, CLEAN CATCH / Unknown Non-blood Collection / Unknown 07/07/2023 9:48 AM CDT 07/07/2023 9:48 AM CDT Maria Dolores Del Real APRN, CNP LAB_[address] [address], [facility] * Rubella Immune Status, IgG (07/07/2023 9:48 AM CDT) Rubella Units 3.84 07/08/2023 10:19 AM CDT [facility] Comment:The magnitude of the measured result, above the cutoff, is not indicative of the amount of antibody present. Rubella Intepretation Immune Immune 07/08/2023 10:19 AM CDT [facility] Blood Venipuncture / Unknown 07/07/2023 9:48 AM CDT 07/07/2023 9:48 AM CDT Maria Dolores Del Real APRN, NETWORK DEVELOPMENT COORDINATOR LAB_1 [facility] [address] * Rapid Drug Panel, Urine (with Confirmation) without THC (07/07/2023 9:48 AM CDT) Pathologist [facility] Amphetamines Screen Not Detected Not Detected 07/07/2023 4:08 PM CDT [facility] Barbiturates Screen Not Detected Not Detected 07/07/2023 4:08 PM CDT [facility] Benzodiazepines Screen Not Detected Not Detected 07/07/2023 4:08 PM CDT [facility] Buprenorphine Screen Not Detected Not Detected 07/07/2023 4:08 PM CDT [facility] Cocaine Metabolite Screen Not Detected Not Detected 07/07/2023 4:08 PM CDT [facility] Methadone Screen Not Detected Not Detected 07/07/2023 4:08 PM CDT [facility] Opiates Screen Not Detected Not Detected 07/07/2023 4:08 PM CDT [facility] Oxycodone Screen Not Detected Not Detected 07/07/2023 4:08 PM CDT [facility] Phencyclidine (PCP) Screen Not Detected Not Detected 07/07/2023 4:08 PM CDT [facility] Creatinine, Urine, Random 275 >20 mg/dL 07/07/2023 4:08 PM CDT [facility] Urine Non-blood Collection / Unknown 07/07/2023 9:48 AM CDT 07/07/2023 9:48 AM CDT Narrative [facility] - 07/07/2023 4:08 PM CDT The [...] APRN, CNP LAB_1 Performing Organization Address [facility] de Phone Number [facility] [address] [place] [address] * HIV 1/2 Ag/Ab 4th Generation (07/07/2023 9:48 AM CDT) [facility] HIV 1/2 Antigen/Antib monica (4th generation) Negative (Non Reactive) Negative (Non Reactive) 07/07/2023 4:39 PM CDT [facility] Comment:HIV-1 p24 Antigen an d HIV-1/HIV-2 Antibody not detected Blood Venipuncture / Unknown 07/07/2023 9:48 AM CDT 07/07/2023 9:48 AM CDT Maria Dolores Del Real APRN, CNP LAB_1 Performing Organization Address [facility] Phone Number [facility] [address] [place] [address] * Hgb A1C (07/07/2023 9:48 AM CDT) [facility] Hemoglobin A1C 5.0 <=5.6 % 07/07/2023 8:20 PM CDT [facility] Estimated Average Glucose (Calc) 97 < 117 mg/dL 07/07/2023 8:20 PM CDT [facility] Comment:Estimated average gl ucose (eAG) converts A1c into glucose units (mg/dL) and estimates average glucose over the past approximately 3 months. The eAG reference interval (<117 mg/dL) corresponds to an A1c of <5.7%. Blood Venipuncture / Unknown 07/07/2023 9:48 AM CDT 07/07/2023 9:48 AM CDT Maria Dolores Del Real APRN, CNP LAB_1 Performing Organization Address [facility] Co de Phone Number [facility] [address] * Hepatitis C Antibody, with Reflex (07/07/2023 9:48 AM CDT) Pathologist [facility] Hepatitis C Antibody Negative (Non Reactive) Negative (Non Reactive) 07/07/2023 4:39 PM CDT [facility] Comment:Antibodies to HCV no t detected. Does not exclude the possiblity of exposure to HCV. Blood Venipuncture / Unknown 07/07/2023 9:48 AM CDT 07/07/2023 9:48 AM CDT Maria Dolores Del Real APRN, CNP LAB_1 Performing Organization Address [facility] de Phone Number [facility] [address] [place] [address] * Hepatitis B Surface Antigen (07/07/2023 9:48 AM CDT) Pathologist [facility] Hepatitis B Surface Antigen Negative (Non Reactive) Negative (Non Reactive) 07/07/2023 4:38 PM CDT [facility] Blood Venipuncture / Unknown 07/07/2023 9:48 AM CDT 07/07/2023 9:48 AM CDT Maria Dolores Del Real APRN, CNP LAB_1 Performing Organization Address [facility] Co de Phone Number [facility]0 [address] * Complete Blood Count-No Diff (07/07/2023 9:48 AM CDT) Pathologist [facility] WBC 9.5 3.5 - 10.5 x10(9)/L 07/07/2023 2:02 PM CDT [facility] RBC 4.56 3.90 - 5.03 x10(12)/L 07/07/2023 2:02 PM T [facility] Hemoglobin 13.7 12.0 - 15.5 g/dL 07/07/2023 2:02 PM T [facility] HCT 39.5 34.9 - 44.5 % 07/07/2023 2:02 PM [facility] MCV 86.6 80.0 - 100.0 fL 07/07/2023 2:02 PM T [facility] MCH 30.0 27.6 - 33.3 pg 07/07/2023 2:02 PM T [facility] MCHC 34.7 31.5 - 35.2 g/dL 07/07/2023 2:02 PM [facility] RDW 12.4 11.9 - 15.5 % 07/07/2023 2:02 PM T [facility] Platelets 246 150 - 450 x10(9)/L 07/07/2023 2:02 PM [facility] Automated NRBC 0 <=0 /100 WBC 07/07/2023 2:02 PM T [facility] Blood Venipuncture / Unknown 07/07/2023 9:48 AM CDT 07/07/2023 9:48 AM CDT Maria Dolores Del Real APRN, CNP LAB_1 Performing Organization Address City/[facility]/ZIP Co de Phone Number [facility] [address] [place] [phone] * Blood Type (07/07/2023 9:48 AM CDT) ABO A 07/07/2023 4:42 PM CDT [facility] RH Positive 07/07/2023 4:42 PM CDT [facility] Blood Venipuncture / Unknown 07/07/2023 9:48 AM CDT 07/07/2023 9:48 AM CDT Maria Dolores Del Real APRN, CNP LAB_1 Performing Organization Address City/[facility]/ZIP Co de Phone Number [facility] [address] [place], [place] [phone] [place] [address] * Antibody Screen (07/07/2023 9:48 AM CDT) Antibody Screen Interpretation Negative 07/07/2023 4:42 PM CDT [facility] Blood Venipuncture / Unknown 07/07/2023 9:48 AM CDT 07/07/2023 9:48 AM CDT Maria Dolores Del Real APRN, CNP LAB_1 [facility] [address] [employer] [place], [place] [phone] [place] [address] * OB CLINIC ULTRASOUND LIMITED (07/07/2023) Anatomical [...] trimester documented in this encounter Care Teams Fretted Instrument Maker Hand Relationship Specialty [place] [address] [place] [address] PCP - General Family Practice 11/03/20 documented as of this encounter
--- OUTSIDE RECORDS SUMMARY | 2023-09-13 00:41 | XMS_ITS | Encounter Summary ---
Author Organization [facility] Address [address], [place] [address] Care Team Providers Care Construction Equipment Overhauler Name Role Phone Ranadl Joe MD Primary Care Provider [phone] Reason for Visit * Reason Comments Forms Encounter Details Date Type Department Care Team (Late st Contact Info) Description 07/26/2023 Telephone [facility]-PEOPLESOFT FUNCTIONAL ANALYST [address] [phone] Maria Dolores Del Real, JOURNEYMAN GLAZIER, EXTENSION WORK DIRECTOR [address] [facility] [address] [place] [address] Forms Social History Tobacco Use [...] CDT Forms updated per , refaxed to [employer], and sent to [employer]. Copy in pt pickup. Patient has appointment [...] end date 09/17/2023 (not due date). Thanks! narcotics detective - please let patient know that she [...] Info) Description 09/14/2023 3:00 PM CDT Appointment [facility]-PEOPLESOFT FUNCTIONAL ANALYST [address] [place] [phone] Miranda Metzger, [address] [phone] 09/19/2023 10:00 AM CDT Appointment [facility] [address] [place] [address] [phone] Maria Dolores Del Real JOURNEYMAN GLAZIER, EXTENSION WORK DIRECTOR [address] Guevara [address] [place] [address] [phone] 09/19/2023 11:00 AM CDT Appointment [facility] [address] [place] [address] [place] [address] [phone] Shaggy Smith MD [address] [place] [address] [phone] 10/13/2023 9:00 AM CDT Appointment [facility]-PEOPLESOFT FUNCTIONAL ANALYST [address] [place] [address] [phone] Maria Dolores Del Real JOURNEYMAN GLAZIER, EXTENSION WORK DIRECTOR [address] Guevara [address] [place] [address] [phone] documented as of this encounter Visit Diagnoses Not on filedocumented in this encounter Care Teams Construction Equipment Overhauler Relationship Specialty [place] [address] [place] [address] PCP - General Family Practice 11/03/20 documented as of this encounter
--- OUTSIDE RECORDS SUMMARY | 2023-09-13 00:41 | XMS_ITS | Encounter Summary ---
Author Organization [employer] Address [address] [address] Care Team Providers Care Machining Supervisor Name Role Phone Randal Joe MD Primary Care Provider [phone] Reason for Visit * Reason Comments Medication Questions Encounter Details Date Type Department Care Team (Late st Contact Info) Description 07/22/2023 Telephone [facility]-MANAGER PART [address] [facility], [address] [phone] Maria Dolores Del Real, RESIDENTIAL REAL ESTATE APPRAISER, BUSINESS PLANNING MANAGER [address] [facility] [address] [place] [address] Medication Questions Social History Tobacco [...] the Sliquid brand - can purchase through [employer] or on [employer]. * Carin Root RN - 07/22/2023 12:53 PM CDT 38 y.o. currently 11w6d wondering if there is a specific vaginal lubricant provider would recommendor avoid during . *Call or can send My Chart msg documented in this encounter Plan of Treatment Upcoming Encounters Date Type Department Care Team (Late st Contact Info) Description 09/14/2023 3:00 PM CDT Appointment [facility]-MANAGER PART [address] [place] [address], [address] [phone] [place] [address] Guevara [address] [place] [phone] 09/19/2023 10:00 AM CDT Appointment [facility] [address] [place] [address], [address] [phone] Maria Dolores Del Real APRN, BUSINESS PLANNING MANAGER [address] Guevara [address] [place] [phone] 09/19/2023 11:00 AM CDT Appointment [facility] [address] [place] [address], [address] [place] [phone] Shaggy Smith MD [address] [place] [address] [address] [facility] [place], [place] [phone] 10/13/2023 9:00 AM CDT Appointment [facility]-MANAGER PART [address] [facility], [facility] [address] [place] [phone] Maria Dolores Del Real APRN, BUSINESS PLANNING MANAGER [address] [address] [employer] [employer], [place] [phone] documented as of this encounter Visit Diagnoses Not on filedocumented in this encounter Care Teams Machining Supervisor Relationship Specialty [place] [address] [place] [address] PCP - General Family Practice 11/03/20 documented as of this encounter
--- OUTSIDE RECORDS SUMMARY | 2023-09-13 00:41 | XMS_ITS | Encounter Summary ---
Author Organization [employer] Address [address], [place] [address] Care Team Providers Care Scoop Filler Name Role Phone Randal Joe MD Primary Care Provider [phone] Reason for Visit * Reason Comments Concerns Encounter Details Date Type Department Care Team (Late st Contact Info) Description 06/27/2023 Telephone [facility]-CONTOUR BAND SAW OPERATOR VERTICAL [address] [facility] [address] [place] [phone] [place] [address] [facility] [address] [place] [address] Concerns Social History Tobacco Use [...] Provider Department Center 07/07/2023 8:30 AM Maria Dolores Del Real APRN, SEBASTIÁN [facility]-CONTOUR BAND SAW OPERATOR VERTICAL PN [facility] 08/04/2023 8:30 AM Sofiya Vo MD [facility]-CONTOUR BAND SAW OPERATOR VERTICAL PN [facility] * Miranda Metzger DO [...] for repeat ultrasound and timing. Routed to [facility] to advise. documented in this encounter Plan of Treatment Upcoming Encounters Date Type Department Care Team (Late st Contact Info) Description 09/14/2023 3:00 PM CDT Appointment [facility]-CONTOUR BAND SAW OPERATOR VERTICAL [address] [place] [address] [phone] [place] [address] [place] [address] Dr [address] [place] [address] [phone] 09/19/2023 10:00 AM CDT Appointment [facility] [address] [place] [address] [phone] Maria Dolores Del Real APRN, MANAGER FORENSIC [address] [place] [address] Dr [address] [place], [place] [phone] 09/19/2023 11:00 AM CDT Appointment [facility] [address] [place] [address] [phone] Shaggy Smith MD [address] [place] [address] [address] [address] [address] [place], [place] [address] 10/13/2023 9:00 AM CDT Appointment [facility]-CONTOUR BAND SAW OPERATOR VERTICAL [address] [place] [address] [phone] Maria Dolores Del Real APRN, MANAGER FORENSIC [address] [place] [address] Dr [address] [place], [place] [phone] documented as of this encounter Visit Diagnoses Not on filedocumented in this encounter Care Teams Scoop Filler Relationship Specialty [place] [address] [place] [address] PCP - General Family Practice 11/03/20 documented as of this encounter
--- OUTSIDE RECORDS SUMMARY | 2023-09-13 00:41 | XMS_ITS | Encounter Summary ---
Author Organization [facility] Address [address], [place] [address] Care Team Providers Care Pool Servicer Name Role Phone Randal Joe MD Primary Care Provider [phone] Reason for Visit * Reason Comments Forms Encounter Details Date Type Department Care Team (Late st Contact Info) Description 07/07/2023 Telephone [facility]SHEARER HELPER [address] [address] Maria Dolores Del Real, BELT REPAIRER, IRONING WORKER [address] [facility] [address] [place] [address] Forms Social History Tobacco Use [...] attend appointments, sick days, ect. 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 We discussed it may be best for her to document exactly what she is needing for FMLA, in detail, and document in msg. She agrees with plan. * Dyan Townsend - 07/07/2023 2:57 PM CDT Per Maria Dolores Gave: I am fine with general restrictions, such as: Per [place] State Law, statute 181.939 subdivision 2, an [...] Info) Description 09/14/2023 3:00 PM CDT Appointment [facility]SHEARER HELPER [address] [place] [address] [phone] Miranda Metzger DO [address] [place] [address] [phone] 09/19/2023 10:00 AM CDT Appointment [facility] [address] [place] [address] [phone] Maria Dolores Del Real APRN, IRONING WORKER [address] [place] [address] [id number] 09/19/2023 11:00 AM CDT Appointment [facility] [address] [place] [address] [phone] Shaggy Smith MD [address] [place] [address] [phone] 10/13/2023 9:00 AM CDT Appointment [facility]SHEARER HELPER [address] [place] [address] [phone] Maria Dolores Del Real APRN, IRONING WORKER [address] [place] [address] [phone] documented as of this encounter Visit Diagnoses Not on filedocumented in this encounter Care Teams Pool Servicer Relationship Specialty [place] [address] [place] [address] PCP - General Family Practice 11/03/20 documented as of this encounter
--- OUTSIDE RECORDS SUMMARY | 2023-09-13 00:41 | XMS_ITS | Encounter Summary ---
Author Organization [employer] Address [address] [address] Care Team Providers Care Global Director Air And Climate Change Name Role Phone Randal Joe MD Primary Care Provider [phone] Reason for Visit * Reason Comments Follow-up Encounter Details Date Type Department Care Team (Late st Contact Info) Description 07/21/2023 11:45 AM CDT Routine [facility]-PRODUCT SAFETY HEAD [address] [address] Maria Dolores Del Real, CARE TRANSITIONS NURSE, LABORER LIVESTOCK [address] [place] [facility] [address] [place] [address] Follow-up Social History Tobacco Use [...] Patient Instructions* Maria Dolores Del Real APRN, LABORER LIVESTOCK - 07/21/2023 11:45 AM CDT Images from [...] our handout on Genetic Disease Carrier Screening: https://Mobileum/50869.pdf Drinking any amount of alcohol during is not safe. Watch this short video by Proof Miller: Proof: Some Think Drinking During is OK. It???s Not. - Ronda video Marijuana use is never recommended while or . Learn why here: https://Mobileum/27321.pdf is a time of transition. If you feel overwhelmed, anxious or depressed, see the followingresources: Emotional Distress During and After : https://Mobileum/12039.pdf Resources & Support for New & Expecting Parents: https://Mobileum/55167.pdf The 3 books provided throughout are also available digitally. Here are the links to each book: Your Guide to : https://user-1mbmgix.Aristotl.bz/FphwuqYedyljyl-Uhgy-Uoltm-ib-n-Inbunmf- Preparing for Childbirth: https://user-1mbmgix.cld.bz/OgwftsObyoudve-Fkh-Uzao-of-Motherhood Taking Care of You and Your [place]: https://user-1mbmgix.cld.bz/XbrvzbHnpnwqju-K-Xep-Beginning [place] for our free herb called ???myHealthyPregnancy?? powered by [employer]. The herb offers many quick articles and videos on , labor, , , and newborncare. Find instructions here: Or click on this link: myHealthyPregnancy tracker herb [facility] In [place], soon-to-be, new, and nursing parents have legal [...] using stimulant laxatives frequently or on a long-term basis. Laxatives can make your bowels more [...] drinks orPedialyte. Acupressure wrist bands (brand name [employer]) may help reduce the feelings of nausea without medication. The wrist bands are worn throughout the day. For extra relief, apply more pressure to the button part of the band. You may also do some slow breathing and relaxation exercises. Acupuncture is another option. Your clinician can make a referral to an data control assistant if you find the wrist bands are [...] are available, including a jefferson gum from [facility]. Pyridoxine (Vitamin B6) is a water-soluble B-complex [...] Nzu (sold under the brand name of Raymond Anam) may have high levels of lead and/or arsenic and should be avoided. It is also known as Raymond Chalk, Calabar Stone, [place], [place] or [place] [...] Info) Description 09/14/2023 3:00 PM CDT Appointment [facility]PRODUCT SAFETY HEAD [address] [facility], [address] [place] [address] [place] [address] [place] [facility] [address] [place], [place] [phone] 09/19/2023 10:00 AM CDT Appointment [facility] [address] [place] [address] [address] [place] [phone] Maria Dolores Del Real APRN, CNP [address] [place] [address] Ismael Cuevas [place], [place] [phone] 09/19/2023 11:00 AM CDT Appointment [facility] [address] [place] [address] [phone] Shaggy Smith MD [address] [place] [address] [phone] 10/13/2023 9:00 AM CDT Appointment [facility]-PRODUCT SAFETY HEAD [address] [place] [address] [phone] Maria Dolores Del Real APRN, CNP [address] [place] [address] Ismael Cuevas [place], [place] [phone] documented as of this encounter Procedures Procedure [...] care documented in this encounter Care Teams Global Director Air And Climate Change Relationship Specialty [place] [address] [place] [address] PCP - General Family Practice 11/03/20 documented as of this encounter
--- OUTSIDE RECORDS SUMMARY | 2023-09-13 00:41 | XMS_ITS | Encounter Summary ---
Author Organization [facility] Address [address] [address] Care Team Providers Care Owner Oral Surgeon Name Role Phone Randal Joe MD Primary Care Provider [phone] Reason for Visit * Reason Comments Questions For The Nurse Encounter Details Date Type Department Care Team (Late st Contact Info) Description 07/13/2023 Telephone [facility]-SYSTEM SPECIALIST [address] [facility], [facility] [address] [place] [address] Maria Dolores Del Real APRN, ELECTRICAL LINE WORKER [address] [place] [address] Questions For The Nurse Social [...] Info) Description 09/14/2023 3:00 PM CDT Appointment [facility]-SYSTEM SPECIALIST [address] [facility], [address] [phone] [place] [address] [place] [address] [place] [phone] 09/19/2023 10:00 AM CDT Appointment [facility] [address] [facility], [address] [phone] Maria Dolores Del Real, PLASTICS FACTORY WORKER, ELECTRICAL LINE WORKER [address] [place] [address] [place] [phone] 09/19/2023 11:00 AM CDT Appointment [facility] [address] [place] [address], [address] [place] [phone] Shaggy Smith MD [address] [place], [place] [address]IN [place], [place] [address] 10/13/2023 9:00 AM CDT Appointment [facility]-SYSTEM SPECIALIST [address] [facility], [address] [place] [address] Maria Dolores Del Real, PLASTICS FACTORY WORKER, ELECTRICAL LINE WORKER [address] [facility] [address] [place] [address] documented as of this encounter Visit Diagnoses Not on filedocumented in this encounter Care Teams Owner Oral Surgeon Relationship Specialty [place] [address] [place] [address] PCP - General Family Practice 11/03/20 documented as of this encounter
--- OUTSIDE RECORDS SUMMARY | 2023-09-13 00:41 | XMS_ITS | Encounter Summary ---
Author Organization [employer] Address [address], [place] [address] Care Team Providers Care Vice President Of Marketing Name Role Phone Randal Joe MD Primary Care Provider [phone] Reason for Visit * Reason Comments Vaginal Discharge Encounter Details Date Type Department Care Team (Late st Contact Info) Description 07/27/2023 10:45 AM CDT Routine [facility]-DIAMOND SANDER [address] [facility] [address] [place] [address] [place] [address] [phone] Vaginal Discharge Social History Tobacco Use Types [...] Vo MD - 07/27/2023 10:45 AM CDT PILE DRIVING SUPERINTENDENT PROGRESS CLINIC NOTE CC: urinary frequency, dysuria, [...] - RTC for NOB 2, scheduled with va Dr. Vo 07/27/2023 documented in this encounter Plan of Treatment Upcoming Encounters Date Type Department Care Team (Late st Contact Info) Description 09/14/2023 3:00 PM CDT Appointment [facility]DIAMOND SANDER [address] [facility], [facility] [address] [place] [address] [place] [address] Guevara [address] [place] [address] [phone] 09/19/2023 10:00 AM CDT Appointment [facility] [address] [facility], [facility] [address] [place] [phone] Maria Dolores Del Real, UNISAW OPERATOR, PRODUCTION MINER [address] Guevara [address] [place], [place] [address] [phone] 09/19/2023 11:00 AM CDT Appointment [facility] [address] [facility], [address] [place] [phone] Shaggy Smith MD [address] [place] [address] [facility] [address] 10/13/2023 9:00 AM CDT Appointment [facility]DIAMOND SANDER [address] [facility], [address] [place] [phone] Maria Dolores Del Real, UNISAW OPERATOR, PRODUCTION MINER [address] [place] [place] [address] documented as of this encounter Procedures Procedure [...] Detected Not Detected 07/28/2023 12:[address] [facility] N. gonorrhoeae STD Not Detected Not Detected 07/28/2023 12:[address] [facility] Swab STD SPECIMEN FROM VAGINA / Unknown Non-blood Collection / Unknown 07/27/2023 11:24 AM CDT 07/27/2023 2:[address] [facility] - 07/28/2023 12:12 PM CDT Test performed by [employer] (TMA). Sofiya Vo MD LAB_1 [facility] [id number] [place] [address] * Vaginitis Panel, DNA Probe (07/27/2023 11:24 AM CDT) Bacterial Vaginosis Negative Negative 07/28/2023 2:[address] [facility] Albertina species Negative Negative 2:[address] [facility] Albertina glabrata Negative Negative 07/28/2023 2:[address] [facility] Trichomonas vaginalis Negative Negative 07/28/2023 2:[address] [facility] Swab STD SPECIMEN FROM VAGINA / Unknown Non-blood Collection / Unknown 07/27/2023 11:24 AM CDT 07/27/2023 2:[address] [facility] - 07/28/2023 2:00 PM CDT Test performed by [employer] (TMA). Sofiya Vo MD LAB_1 [facility] [address] * Urinalysis Routine, Micro/Culture if Pos: Clean Catch (07/27/2023 10:58 AM CDT) Urine Culture Comment Urinalysis results do not meet criteria for urine culture reflex. 07/27/2023 6:[address] [facility] Urine Color Yellow 07/27/2023 6:[address] [facility] Urine Clarity Clear Clear 07/27/2023 6:[address] [facility] Specific [place], Urine 1.025 1.005 - 1.030 07/27/2023 6:[address] [facility] PH Urine 6.5 5.0 - 8.0 07/27/2023 6:[address] [facility] Protein, Urine Qual (mg/dL) Negative Neg/Trace 07/27/2023 6:[address] [facility] Glucose Urine Qual (mg/dL) Negative Negative 07/27/2023 6:[address] [facility] Ketones, Urine (mg/dL) Negative Negative 07/27/2023 6:[address] [facility] Urobilinogen, Urine (EU/dL) 0.2 <2.0 07/27/2023 6:[address] [facility] Bilirubin Urine Negative Negative 07/27/2023 6:[address] [facility] Blood, Urine Negative Neg/Trace 07/27/2023 6:35 PM T [facility] Nitrite Urine Negative Negative 07/27/2023 6:35 PM CDT [facility] Leukocyte Est. Negative Negative 07/27/2023 6:35 PM CDT [facility] Urine Source Clean Catch 07/27/2023 6:35 PM CDT [facility] Urine URINE SPECIMEN COLLECTION, CLEAN CATCH / Unknown Non-blood Collection / Unknown 07/27/2023 10:58 AM CDT 07/27/2023 10:58 AM CDT Sofiya Vo MD LAB_1 [facility] [address] [place] [address] [address] [place] [address] documented in this encounter Visit Diagnoses Diagnosis Dysuria- Primary Urinary frequency Vulvar burning Unspecified symptom associated with female genital organs Routine screening for STI (sexually transmitted infection) Screening examination for venereal disease documented in this encounter Care Teams Vice President Of Marketing Relationship Specialty [place] [address] [place] [address] PCP - General Family Practice 11/03/20 documented as of this encounter
--- OUTSIDE RECORDS SUMMARY | 2023-09-13 00:41 | XMS_ITS | Encounter Summary ---
Author Organization [employer] Address [address], [place] [address] Care Team Providers Care Technology Services Manager Name Role Phone Randal Joe MD Primary Care Provider [phone] Encounter Details Date Type Department Care Team (Late st Contact Info) Description 07/07/2023 9:40 AM CDT Lab Visit [facility], [facility] [address] [place] [address] Supervision of high risk in [...] Info) Description 09/14/2023 3:00 PM CDT Appointment [facility]-SOLUTIONS EXECUTIVE SECURITY [id number] [place] [address], [address] [phone] [place] [address] [place], [place] [phone] 09/19/2023 10:00 AM CDT Appointment [facility] [address] [place] [address], [address] [phone] Maria Dolores Del Real, DIRECT RESPONSE CONSULTANT, WATERMASTER [address] [place] [address] Dr Guevara [address] [place] [address] [phone] 09/19/2023 11:00 AM CDT Appointment [facility] [address] [place] [address], [address] [place] [address] [phone] Shaggy Smith MD [address] [place] [address] 275 [facility] [place] [place] [place] [address] 10/13/2023 9:00 AM CDT Appointment [facility]-SOLUTIONS EXECUTIVE SECURITY [address] [place] [address], [address] [phone] Maria Dolores Del Real, DIRECT RESPONSE CONSULTANT, WATERMASTER [address] [place] [address] Dr Guevara [address] [place] [address] [phone] documented as of this encounter Procedures Procedure [...] AM CDT Maria Dolores Del Real APRN, WATERMASTER LAB_1 [employer]. [address], MAR[address] [place] [address] * Treponema Screen (Syphilis) (07/07/2023 9:48 AM CDT) Treponema Screen Result 0.127 {s_co_ratio } 07/07/2023 4:38 PM CDT [facility] Treponema Screen Interpretation Non Reactive Non Reactive 07/07/2023 4:38 PM CDT [facility] Blood Venipuncture / Unknown 07/07/2023 9:48 AM CDT 07/07/2023 9:48 AM CDT Maria Dolores Del Real APRN, CNP LAB_1 Performing Organization Address [facility] de Phone Number [facility] [address] [place], [place] [id number] * (ABNORMAL) Urine Culture (07/07/2023 9:48 AM CDT) [facility] Urine Culture Growth(A) 07/08/2023 9:14 PM CDT [facility] Urine Culture <10,000 CFU/mL Mixed Bacterial Growth 07/08/2023 9:14 PM CDT [facility] Comment: Mixed Bacterial Growth indicates the specimen is likely contaminated at collection with urogenital and/or fecal nicole. The presence of organisms at <10,000 cfu/ml in culture, UTI unlikely. Urine URINE SPECIMEN COLLECTION, CLEAN CATCH / Unknown Non-blood Collection / Unknown 07/07/2023 9:48 AM CDT 07/07/2023 9:48 AM CDT Maria Dolores Del Real APRN, CNP LAB_1 Performing Organization Address City/[facility] Co de Phone Number [address] [address], [facility] * Rubella Immune Status, IgG (07/07/2023 9:48 AM CDT) Rubella Units 3.84 07/08/2023 10:19 AM CDT [facility] Comment:The magnitude of the measured result, above the cutoff, is not indicative of the amount of antibody present. Rubella Intepretation Immune Immune 07/08/2023 10:19 AM CDT [facility] Blood Venipuncture / Unknown 07/07/2023 9:48 AM CDT 07/07/2023 9:48 AM CDT Maria Dolores Del Real DIRECT RESPONSE CONSULTANT, WATERMASTER LAB_1 [facility] [address] * Rapid Drug Panel, Urine (with Confirmation) without THC (07/07/2023 9:48 AM CDT) [facility] Amphetamines Screen Not Detected Not Detected 07/07/2023 4:08 PM CDT [facility] Barbiturates Screen Not Detected Not Detected 07/07/2023 4:08 PM CDT [facility] Benzodiazepines Screen Not Detected Not Detected 07/07/2023 4:08 PM CDT [facility] Buprenorphine Screen Not Detected Not Detected 07/07/2023 4:08 PM CDT [facility] Cocaine Metabolite Screen Not Detected Not Detected 07/07/2023 4:08 PM CDT [facility] Methadone Screen Not Detected Not Detected 07/07/2023 4:08 PM CDT [facility] Opiates Screen Not Detected Not Detected 07/07/2023 4:08 PM CDT [facility] Oxycodone Screen Not Detected Not Detected 07/07/2023 4:08 PM CDT [facility] Phencyclidine (PCP) Screen Not Detected Not Detected 07/07/2023 4:08 PM CDT [facility] Creatinine, Urine, Random 275 >20 mg/dL 07/07/2023 4:08 PM CDT [facility] Urine Non-blood Collection / Unknown 07/07/2023 9:48 AM CDT 07/07/2023 9:48 AM CDT Narrative [facility] - 07/07/2023 4:08 PM CDT The [...] Real APRN, CNP LAB_1 Performing Organization Address [facility] de Phone Number [facility] [address] [place] [address] * HIV 1/2 Ag/Ab 4th Generation (07/07/2023 9:48 AM CDT) [facility] HIV 1/2 Antigen/Antib monica (4th generation) Negative (Non Reactive) Negative (Non Reactive) 07/07/2023 4:39 PM CDT [facility] Comment:HIV-1 p24 Antigen an d HIV-1/HIV-2 Antibody not detected Blood Venipuncture / Unknown 07/07/2023 9:48 AM CDT 07/07/2023 9:48 AM CDT Maria Dolores Del Real APRN, CNP LAB_1 Performing Organization Address [facility] Phone Number [facility] [address] [place] [address] * Hgb A1C (07/07/2023 9:48 AM CDT) [facility] Hemoglobin A1C 5.0 <=5.6 % 07/07/2023 8:20 PM CDT [facility] Estimated Average Glucose (Calc) 97 < 117 mg/dL 07/07/2023 8:20 PM CDT [facility] Comment:Estimated average gl ucose (eAG) converts A1c into glucose units (mg/dL) and estimates average glucose over the past approximately 3 months. The eAG reference interval (<117 mg/dL) corresponds to an A1c of <5.7%. Blood Venipuncture / Unknown 07/07/2023 9:48 AM CDT 07/07/2023 9:48 AM CDT Maria Dolores Del Real APRN, CNP LAB_1 Performing Organization Address [facility] de Phone Number [facility] [address] * Hepatitis C Antibody, with Reflex (07/07/2023 9:48 AM CDT) Pathologist [facility] Hepatitis C Antibody Negative (Non Reactive) Negative (Non Reactive) 07/07/2023 4:39 PM CDT [facility] Comment:Antibodies to HCV no t detected. Does not exclude the possiblity of exposure to HCV. Blood Venipuncture / Unknown 07/07/2023 9:48 AM CDT 07/07/2023 9:48 AM CDT Maria Dolores Del Real APRN, CNP LAB_1 Performing Organization Address [facility] Co de Phone Number [facility] [address] [place] [address] * Hepatitis B Surface Antigen (07/07/2023 9:48 AM CDT) Pathologist [facility] Hepatitis B Surface Antigen Negative (Non Reactive) Negative (Non Reactive) 07/07/2023 4:38 PM CDT [facility] Blood Venipuncture / Unknown 07/07/2023 9:48 AM CDT 07/07/2023 9:48 AM CDT Maria Dolores Del Real APRN, CNP LAB_1 Performing Organization Address [facility] Co il Phone Number [facility] [address] [place] [address] * Complete Blood Count-No Diff (07/07/2023 9:48 AM CDT) Pathologist [facility] WBC 9.5 3.5 - 10.5 x10(9)/L 07/07/2023 2:02 PM CDT [facility] RBC 4.56 3.90 - 5.03 x10(12)/L 07/07/2023 2:02 PM CDT [facility] Hemoglobin 13.7 12.0 - 15.5 g/dL 07/07/2023 2:02 PM CDT [facility] HCT 39.5 34.9 - 44.5 % 07/07/2023 2:02 PM [facility] MCV 86.6 80.0 - 100.0 fL 07/07/2023 2:02 PM [facility] MCH 30.0 27.6 - 33.3 pg 07/07/2023 2:02 PM T [facility] MCHC 34.7 31.5 - 35.2 g/dL 07/07/2023 2:02 PM T [facility] RDW 12.4 11.9 - 15.5 % 07/07/2023 2:02 PM T [facility] Platelets 246 150 - 450 x10(9)/L 07/07/2023 2:02 PM [facility] Automated NRBC 0 <=0 /100 WBC 07/07/2023 2:02 PM T [facility] Blood Venipuncture / Unknown 07/07/2023 9:48 AM CDT 07/07/2023 9:48 AM CDT Maria Dolores Del Real APRN, CNP LAB_1 Performing Organization Address City/[facility]/ZIP Co de Phone Number [facility] [address] [place] [address] * Blood Type (07/07/2023 9:48 AM CDT) ABO A 07/07/2023 4:42 PM CDT [facility] RH Positive 07/07/2023 4:42 PM CDT [facility] Blood Venipuncture / Unknown 07/07/2023 9:48 AM CDT 07/07/2023 9:48 AM CDT Maria Dolores Del Real APRN, CNP LAB_1 [facility] [address] [place], [place] [address] [place] [address] * Antibody Screen (07/07/2023 9:48 AM CDT) Antibody Screen Interpretation Negative 07/07/2023 4:42 PM CDT [facility] Blood Venipuncture / Unknown 07/07/2023 9:48 AM CDT 07/07/2023 9:48 AM CDT Maria Dolores Del Real APRN, SEBASTIÁN LAB_1 [facility] [address] [id number] documented in this encounter Visit Diagnoses Diagnosis Supervision of high risk in first trimester Unspecified high-risk Primigravida of advanced maternal age in first trimester documented in this encounter Care Teams Technology Services Manager Relationship Specialty [place] [address] [place] [address] PCP - General Family Practice 11/03/20 documented as of this encounter
--- OUTSIDE RECORDS SUMMARY | 2023-09-13 00:41 | XMS_ITS | Encounter Summary ---
Author Organization [employer] Address [address], [place] [address] Care Team Providers Care Laborer Demolition Name Role Phone Randal Joe MD Primary Care Provider [phone] Reason for Visit * Reason Comments Nausea Encounter Details Date Type Department Care Team (Late st Contact Info) Description 07/09/2023 Nurse Triage [facility] [address] [place], [place] [phone] [place] [address] [place], [place] [phone] Nausea Social History Tobacco Use Types Packs/Day [...] felt sick shortly after eating. Went to [facility] ED. States she had a [...] Info) Description 09/14/2023 3:00 PM CDT Appointment [facility]-PURIFICATION OPERATOR HELPER [address] [place] [address], [address] [phone] [place] [address] Guevara [address] [place] [address] 09/19/2023 10:00 AM CDT Appointment [facility] [address] [place] [address], [address] [phone] Maria Dolores Del Real, ATTRACTION ATTENDANT, GROUND CREWMAN MISSION SUPPORT [address] [place] [address] Dr Guevara [address] [place] [address] 09/19/2023 11:00 AM CDT Appointment [facility] [address] [facility], [address] [place] [phone] Shaggy Smith MD [address] [place] [address] Dr Guevara [address] [place] [address] 10/13/2023 9:00 AM CDT Appointment [facility]-PURIFICATION OPERATOR HELPER [address] [facility], [address] [place] [phone] Maria Dolores Del Real APRN, GROUND CREWMAN MISSION SUPPORT [address] [address] [facility] [address] [place] [address] documented as of this encounter Visit Diagnoses Not on filedocumented in this encounter Care Teams Laborer Demolition Relationship Specialty [place] [address] [place] [address] PCP - General Family Practice 11/03/20 documented as of this encounter
--- OUTSIDE RECORDS SUMMARY | 2023-09-13 00:41 | XMS_ITS | Encounter Summary ---
Author Organization [employer] Address [address], [place] [address] Care Team Providers Care Hob Mill Operator Name Role Phone Randal Joe MD Primary Care Provider [phone] Reason for Visit * Reason Comments CONSTIPATION Encounter Details Date Type Department Care Team (Late st Contact Info) Description 07/16/2023 Nurse Triage [facility] [address] [place], [place] [phone] [place] [address] [place], [place] [phone] CONSTIPATION Social History Tobacco Use Types Packs/Day [...] related to this call. Reason for Disposition Prdx-Mov-Bngisgz (OTC) medicines for constipation, questions about Mild rectal pain or itching Leaking stool Protocols used: - Opgmuojnlhib-GSKPC-GF documented in this encounter Plan of Treatment Upcoming Encounters Date Type Department Care Team (Late st Contact Info) Description 09/14/2023 3:00 PM CDT Appointment [facility]-PROFESSIONAL FIGHTER [address] [facility], [facility] [address] [place] [phone] [place] [address] Guevara [address] [place] [address] 613777 09/19/2023 10:00 AM CDT Appointment [facility] [address] [facility] [address] [place] [address] Maria Dolores Del Real APRN, BENCH MOLDER [address] Guevara [address] [place] [address] [phone] 09/19/2023 11:00 AM CDT Appointment [facility] [address] [place] [address], [address] [place] [phone] Shaggy Smith MD [address] [facility] [address] Guevara [address] [place] 830389 10/13/2023 9:00 AM CDT Appointment [facility]-PROFESSIONAL FIGHTER [address] [facility], [address] [place] [address] Maria Dolores Del Real, ENERGY CONSERVATION ENGINEER, BENCH MOLDER [address] Guevara [address] [place] [address] documented as of this encounter Visit Diagnoses Not on filedocumented in this encounter Care Teams Hob Mill Operator Relationship Specialty [place] [address] [place] [address] PCP - General Family Practice 11/03/20 documented as of this encounter
--- OUTSIDE RECORDS SUMMARY | 2023-09-13 00:41 | XMS_ITS | Encounter Summary ---
Author Organization [employer] Address [address], [place] [address] Care Team Providers Care Funds Development Director Name Role Phone Randal Joe MD Primary Care Provider [phone] Reason for Visit * Reason Comments Concerns Encounter Details Date Type Department Care Team (Late st Contact Info) Description 07/25/2023 Nurse Triage [facility]-COMPLIANCE ADVISOR [address] [facility], [facility] [address] [place] [address] Maria Dolores Del Real, HEAVY EQUIPMENT SERVICE TECHNICIAN, ACID PUMP OPERATOR [address] Ismael [address] [place] [address] Concerns Social History Tobacco Use [...] vaginal discharge in Protocols used: - Vaginal Mfpaadmhh-FQKRJ-SJ Patient calling with concerns about missing a [...] Info) Description 09/14/2023 3:00 PM CDT Appointment [facility]-COMPLIANCE ADVISOR [address] [facility], [facility] [address] [place] [phone] [place] [address] Guevara [address] [place] [address] 09/19/2023 10:00 AM CDT Appointment [facility] [address] [facility], [address] [place] [phone] Maria Dolores Del Real, HEAVY EQUIPMENT SERVICE TECHNICIAN, ACID PUMP OPERATOR [address] [place] [address] 09/19/2023 11:00 AM CDT Appointment [facility] 9855 [facility], [address] [place] [phone] Shaggy Smith MD [address] [facility] [address] Guevara [address] [place], [place] 9[address]39 10/13/2023 9:00 AM CDT Appointment [facility]-COMPLIANCE ADVISOR [address] [facility], [address] [place] [phone] Maria Dolores Del Real, HEAVY EQUIPMENT SERVICE TECHNICIAN, ACID PUMP OPERATOR [address] Guevara [address] [place] [address] documented as of this encounter Visit Diagnoses Not on filedocumented in this encounter Care Teams Funds Development Director Relationship Specialty [place] [address] [place] [address] PCP - General Family Practice 11/03/20 documented as of this encounter
--- OUTSIDE RECORDS SUMMARY | 2023-09-13 00:41 | XMS_ITS | Encounter Summary ---
Author Organization [employer] Address [address] [address] Care Team Providers Care Police Officer Booking Name Role Phone Randal Joe MD Primary Care Provider [phone] Reason for Visit * Reason Comments LAB RESULTS Encounter Details Date Type Department Care Team (Late st Contact Info) Description 07/07/2023 Telephone [facility] [address] [place] [address] [place] [address] [place] [address] LAB RESULTS Social History Tobacco [...] 7:28 PM CDT Clinician: Review and advise Patient/medicare contact specialist request: Input needed: lab results Specific Request: Advise on test results Spoke to the patient. Advised of negative treponema result. Patient requesting follow up from provider regarding all results when the clinic is open. Nursing: a voicemail can be left on phone number of [phone] documented in this encounter Plan of Treatment Upcoming Encounters Date Type Department Care Team (Late st Contact Info) Description 09/14/2023 3:00 PM CDT Appointment [facility]-POST PARTUM NURSE [address]143 [facility], [email or web address] [address] [place] [phone] [place] [address] Guevara [address] [place] [address] [phone] 09/19/2023 10:00 AM CDT Appointment [facility] [address] [facility], [facility] [[email or web address] [address] [place] [phone] Maria Dolores Del Real APRN, BULL RIDER [address] Guevara [address] [place] [address] [phone] 09/19/2023 11:00 AM CDT Appointment [facility] 9855 [facility], [address] [place] [phone] Shaggy Smith MD [address] [facility] [address] Guevara [address] [place], [place] 356909 10/13/2023 9:00 AM CDT Appointment [facility]-POST PARTUM NURSE [address] [facility], [address] [place] [phone] Maria Dolores Del eRal, COLOR CHECKER ROVING OR YARN, BULL RIDER [address] Guevara [address] [place] [address] documented as of this encounter Visit Diagnoses Not on filedocumented in this encounter Care Teams Police Officer Booking Relationship Specialty [place] [address] [place] [address] PCP - General Family Practice 11/03/20 documented as of this encounter
--- OUTSIDE RECORDS SUMMARY | 2023-09-13 00:41 | XMS_ITS | Encounter Summary ---
Author Organization [facility] Address [address], [place] [address] Care Team Providers Care Special Effects Technician Name Role Phone Randal Joe MD Primary Care Provider [phone] Encounter Details Date Type Department Care Team (Late st Contact Info) Description 07/11/2023 [facility] 3931 [place], [place] [phone] Toi, [place] [address] Social History Tobacco Use Types Packs/Day Years [...] Info) Description 09/14/2023 3:00 PM CDT Appointment [facility]-SENIOR SCRUM MASTER [address] [facility] [address] [place] [phone] [place] [address] Guevara [place], [place] [phone] 09/19/2023 10:00 AM CDT Appointment [facility] [address] [place] [phone] Maria Dolores Del Real, CHLOROBUTADIENE SCRUBBER OPERATOR, NIPPLE MAKER [address] [place] [address] Ismael Cuevas [place], [place] [phone] 09/19/2023 11:00 AM CDT Appointment [facility] [address] [place] [address] [phone] Shaggy Smith MD [address] [place] [address] [phone] 10/13/2023 9:00 AM CDT Appointment [facility]-SENIOR SCRUM MASTER [address] [place] [phone] Maria Dolores Del Real CHLOROBUTADIENE SCRUBBER OPERATOR, NIPPLE MAKER [address] [place] [address] [phone] documented as of this encounter Visit Diagnoses Not on filedocumented in this encounter Care Teams Special Effects Technician Relationship Specialty [place] [address] [place] [address] PCP - General Family Practice 11/03/20 documented as of this encounter
--- OUTSIDE RECORDS SUMMARY | 2023-09-13 00:41 | XMS_ITS | Encounter Summary ---
Author Organization [employer] Address [address], [place] [address] Care Team Providers Care Engineering Executive Name Role Phone Randal Joe MD Primary Care Provider [phone] Reason for Visit * Reason Comments Forms/Letter Entered automaticall y based on patient selection in Code [facility]. Encounter Details Date Type Department Care Team (Late st Contact Info) Description 07/08/2023 8:30 AM CDT E-Visit [facility]-GENERAL UTILITY WORKER [address] [place] [phone] [place] [address] [address] Chief Comp: Forms/Letter Social History [...] Info) Description 09/14/2023 3:00 PM CDT Appointment [facility]-GENERAL UTILITY WORKER [address] [facility], [facility] 420 [place] [phone] [place] [address] Guevara [address] [place] [address] [phone] 09/19/2023 10:00 AM CDT Appointment [facility] [address] [facility], [facility] [address] [place] [address] Maria Dolores Del Real APRN, CNP [address] [place] [address] Dr Guevara [address] [place] [address] 09/19/2023 11:00 AM CDT Appointment [facility] [address] [place] [address], [address] [place] [address] Shaggy Smith MD [address] [facility] [address] Guevar[address] [facility] [place] 263749 10/13/2023 9:00 AM CDT Appointment [facility]-GENERAL UTILITY WORKER [address] [facility], [address] [place] [address] Maria Dolores Del Rela APRN, PACKAGER AND STRAPPER [address] Guevara [address] [place] [address] documented as of this encounter Visit Diagnoses Not on filedocumented in this encounter Care Teams Engineering Executive Relationship Specialty [place] [address] [place] [address] PCP - General Family Practice 11/03/20 documented as of this encounter
--- OUTSIDE RECORDS SUMMARY | 2023-09-13 00:42 | XMS_ITS | Encounter Summary ---
Author Organization [employer] Address [address] [address] Care Team Providers Care Liquor Rectifier Name Role Phone Randal Joe MD Primary Care Provider [phone] Reason for Visit * Procedure/Equipment (Routine) - Incomplete Specialty Diagnoses / Procedures Referred By Contac t Referred To Contact Diagnoses Early stage of Procedures US OB <14 Weeks w EV Single Follow Up Growth US OB < 14 [place] [address] [address] [place] [address] Referral ID Status Reason Start Date Expiration Date V isits Requested Visits Authorized [id number] Incomplete 06/22/2023 09/20/2024 1 1 Encounter Details Date Type Department Care Team (Latest Contact Info) Description 06/22/2023 8:00 AM CDT Ancillary Procedure [facility]-Ultrasound [address] [facility], [address] [place] [address] [place] [address] [address] [place] [address] Early stage of Social History Tobacco [...] Info) Description 09/14/2023 3:00 PM CDT Appointment [facility]-OCCASIONAL CAREGIVER [address] [place] [address] [phone] Miranda Met[place]ger [place] [address] [place] [address] Dr Guevara [address] [place] [address] [phone] 09/19/2023 10:00 AM CDT Appointment [facility] [address] [place] [address] [phone] Maria Dolores Del Real, LOSS PREVENTION DETECTIVE, FOOT PRESS OPERATOR [address] [place] [address] Dr Gamez [place], [place] [phone] 09/19/2023 11:00 AM CDT Appointment [facility] [address] [place] [address] [phone] Shaggy Smith MD [address] [place] [address] [address] [place], [place] [phone] 10/13/2023 9:00 AM CDT Appointment [facility]-OCCASIONAL CAREGIVER [address] [place] [address] [phone] Maria Dolores Del Real, LOSS PREVENTION DETECTIVE, FOOT PRESS OPERATOR [address] Gamez [place], [place] [phone] documented as of this encounter Procedures Procedure [...] cm ovoid hypoechoic area. Gestational sac: Unremarkable. [place]-rump length measures 1.8 cm, corresponding to 8w2d [...] 1.2 cm ovoidhypoechoic area. Gestational sac: Unremarkable. [place]-rump length measures 1.8 cm, corresponding to 8w2d [...] of documented in this encounter Care Teams Liquor Rectifier Relationship Specialty [place] [address] [place] [address] PCP - General Family Practice 11/03/20 documented as of this encounter
--- OUTSIDE RECORDS SUMMARY | 2023-09-13 00:42 | XMS_ITS | Encounter Summary ---
Author Organization [employer] Address [address] [address] Care Team Providers Care Crown Pouncer Name Role Phone Randal Joe MD Primary Care Provider [phone] Reason for Referral * Procedure/Equipment (Routine) - Incomplete Specialty Diagnoses / Procedures Referred By Contac t Referred To Contact Diagnoses Early stage of Procedures US OB < 14 [place] [address] [address] [place] [address] Referral ID Status Reason Start Date Expiration Date V isits Requested Visits Authorized [id number] Incomplete 06/14/2023 09/12/2024 1 1 Reason for Visit * Reason Comments LAB RESULTS CONSTIPATION Encounter Details Date Type Department Care Team (Late st Contact Info) Description 06/13/2023 Telephone [facility]-PATHOLOGY TRANSCRIPTIONIST [address] [facility], [address] [place] [address] [place] [address] [address] [place] [address] LAB RESULTS; CONSTIPATION Social History [...] discrepancy but wanted pt to f/u with DRAPERY SEWER HAND this week. Pt denies any pain , bleeding. State s she did have some cramping in ED Tuesday but thinks it was r/t being constipated and her anxiety. Pain was relieved following BM that day. Pt worried about this lab discrepancy Catering Attendant called the lab and spoke with them. [...] Info) Description 09/14/2023 3:00 PM CDT Appointment [facility]-PATHOLOGY TRANSCRIPTIONIST [address] [place] [address], [address] [place] [address] [place] [address] [place] [address] Dr Guevara [address] [place] [address] 09/19/2023 10:00 AM CDT Appointment [facility] [address] [place] [address], [address] [place] [phone] Maria Dolores Del Real, HOME CARE AIDE, RETAIL MERCHANDISING MANAGER [address] [place] [address] Dr Guevara [address] [place] [address] 09/19/2023 11:00 AM CDT Appointment [facility] [address] [facility], [address] [place] [phone] Shaggy Smith MD [address] [facility] [address] Guevara [address] [place] [address] 10/13/2023 9:00 AM CDT Appointment [facility]-PATHOLOGY TRANSCRIPTIONIST [address] [facility], [address] [place] [phone] Maria Dolores Del Real APRN, RETAIL MERCHANDISING MANAGER [address] Guevara [address] [place], [place] [phone] Scheduled Orders Name Type Priority Associated Diagnoses Orde r Schedule US OB < 14 Weeks Single Imaging New Routine Early stage of Expected: 06/14/2023 (Approximate), Expires: 09/12/2023 documented as of this encounter Visit Diagnoses Diagnosis Early stage of - Primary documented in this encounter Care Teams Crown Pouncer Relationship Specialty [place] [address] [place] [address] PCP - General Family Practice 11/03/20 documented as of this encounter
--- OUTSIDE RECORDS SUMMARY | 2023-09-13 00:42 | XMS_ITS | Encounter Summary ---
Author Organization [employer] Address [address] [address] Care Team Providers Care Business Management Intern Name Role Phone Randal Joe MD Primary Care Provider [phone] Reason for Visit * Reason Comments MENSTRUAL, MENSTRUATION, ABSENT Encounter Details Date Type Department Care Team (Late st Contact Info) Description 06/24/2023 11:30 AM CDT [facility] [address] [place] [address] Nurse Intake, [id number] Ob Missed [...] cannot be sent through Care Everywhere. * !Rwsz-bmv-Hkxymoa Medications: To treat common symptoms during (French) * !Nausea in (French) * : When to Call (Up to 20 Weeks): General Info (French) documented in this encounter Progress Notes * Jaki Stanton RN - 06/24/2023 11:30 AM CDT RN OB Intake Visit Alisia Velasquez is a 38 y.o. female, : is a planned Preferred Care Locations: Clinic Preference: RELIABILITY ENGINEER/MD Rodgers Plans to deliver at Hospital for Delivery : [facility] Provider care models, preferred locations, and expected plan for care reviewed with patient. 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 Hx SAB/D&C 12/30 Hx IAB. Residence: Single Family Home Pets: 1 Dog. Other important social information/history: REPEAT INTAKE<< Struggling with anxiety this . Seen in ED (review chart notes)- US done- SIUP, FHR detected, JENNIFER 01/30/24 CareEverwhere/External Records: CareEverywhere available and up to date. 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 Medications: Patient provided additional education piece of Cmoi-xyo-Bvmoelb medications safe for use in . Sexual [...] Your Guide to e-book and the free KeyadeealthyPregnancy El. MyChart: Patient given guidance on how to use Maaguzi to message providers and review results during [...] access 30/08. Intake Visit Completed via: phone web applications developer Visit completed - June 24, 2023 Length of appointment: 14 minutes not including chart review or visit documentation. documented in this encounter Plan of Treatment Upcoming Encounters Date Type Department Care Team (Late st Contact Info) Description 09/14/2023 3:00 PM CDT Appointment [facility]-LAWN CARE WORKER [address] [facility], [address] [place] [phone] [place] [address] [address] [place] [address] 09/19/2023 10:00 AM CDT Appointment [facility] [address] [facility], [address] [place] [phone] Maria Dolores Del Real APRN, LITURGICAL MUSIC DIRECTOR [address] Guevara [address] [place] [address] 09/19/2023 11:00 AM CDT Appointment [facility] [address] [place] [address], [facility] 275 [place] [phone] Shaggy Smith MD [address] [place] [address] 275 [place] [address] 10/13/2023 9:00 AM CDT Appointment [facility]-LAWN CARE WORKER [address] [facility], [address] [phone] Maria Dolores Del Real APRN, LITURGICAL MUSIC DIRECTOR [address] Guevara [address] [place] [address] documented as of this encounter Visit Diagnoses Diagnosis Missed menses- Primary Absence of menstruation documented in this encounter Care Teams Business Management Intern Relationship Specialty [place] [address] [place] [address] PCP - General Family Practice 11/03/20 documented as of this encounter
--- OUTSIDE RECORDS SUMMARY | 2023-09-13 00:42 | XMS_ITS | Encounter Summary ---
Author Organization [email or web address] Address [address], [place] [address] Care Team Providers Care Nursing Administrator Name Role Phone Randal Joe MD Primary Care Provider [phone] Reason for Visit * Reason Comments Concerns LAB TESTS, NOS Encounter Details Date Type Department Care Team (Late st Contact Info) Description 06/15/2023 Telephone [facility] [address] [employer] [facility] [place] [address] Maria Dolores Del Real, HYDRAULIC ROCKBREAKER OPERATOR, BANK CREDIT CARD COLLECTION CLERK [address] [place] [address] Concerns; LAB TESTS, NOS Social [...] helpful: Peppermint, Spearmint, Anise, Chamomile, Red Raspberry Petrolia, Fennel. Honey can be used as sweetener. [...] having weekly HCGs. Last HCG ordered by [facility] on 06/10 was 28,206. Has an [place] [...] 8:30 AM Maria Dolores Del Real APRN, BANK CREDIT CARD COLLECTION CLERK [facility] 08/04/2023 8:30 AM Sofiya Vo MD [facility] documented in this encounter Plan of Treatment Upcoming Encounters Date Type Department Care Team (Late st Contact Info) Description 09/14/2023 3:00 PM CDT Appointment [facility]-PRINT MACHINE OPERATOR [address] [place] [phone] Miranda [place]ger [place] [address] [place] [address] [address] 09/19/2023 10:00 AM CDT Appointment [facility] [address] [place] [address] [phone] Maria Dolores Del Real APRN, BANK CREDIT CARD COLLECTION CLERK [address] [place] [address] Dr Guevara [address] [place] [address] 09/19/2023 11:00 AM CDT Appointment [facility] [address] [place] [address] [phone] Shaggy Smith MD [address] [place] [address] 7[address]779 10/13/2023 9:00 AM CDT Appointment [facility]-PRINT MACHINE OPERATOR [address] [place] [address] [phone] Maria Dolores Del Real APRN, BANK CREDIT CARD COLLECTION CLERK [address] [place] [address] documented as of this encounter Visit Diagnoses Not on filedocumented in this encounter Care Teams Nursing Administrator Relationship Specialty [place] [address] [place] [address] PCP - General Family Practice 11/03/20 documented as of this encounter
--- OUTSIDE RECORDS SUMMARY | 2023-09-13 00:42 | XMS_ITS | Encounter Summary ---
Author Organization [email or web address] Address [address], [place] [address] Care Team Providers Care Jira Administrator Name Role Phone Randal Joe MD Primary Care Provider [phone] Reason for Referral * Procedure/Equipment (Routine) - Incomplete Specialty Diagnoses / Procedures Referred By Contac t Referred To Contact Diagnoses Early stage of Procedures US OB <14 Weeks w EV Single Follow Up Growth US OB < 14 [place] [address] [facility] [address] [place] [address] Referral ID Status Reason Start Date Expiration Date V isits Requested Visits Authorized [id number] Incomplete 06/22/2023 09/20/2024 1 1 Reason for Visit * Reason Comments CONSULT STI testing requeste d Encounter Details Date Type Department Care Team (Late st Contact Info) Description 06/08/2023 3:15 PM CDT Office Visit [facility]-BUSINESS SEGMENT MANAGER [address] [facility], [address] [place] [address] [place] [address] [address] [place] [address] Early stage of (Primary Dx); Routine [...] Vo MD - 06/08/2023 3:15 PM CDT AQUATIC HABITAT BIOLOGIST PROGRESS CLINIC NOTE CC: ultrasound follow up, [...] her partner but not necessarily concerned. State [facility] is more concerned about having infection that [...] measuring 1.1 x 0.8 x 1.2 cm. [place]-rump length measures 0.4 cm, corresponding to 6w1d [...] Info) Description 09/14/2023 3:00 PM CDT Appointment [facility]-BUSINESS SEGMENT MANAGER [address] [place] [address], [address] [phone] Miranda Metzger DO [address] [place] [address] [phone] 09/19/2023 10:00 AM CDT Appointment [facility] [address] [place] [address] [phone] Maria Dolores Del Real, HOUSE BUILDER, ASSISTANT GUEST SERVICES MANAGER [address] [place] [address] Dr Gamez [place], [place] [phone] 09/19/2023 11:00 AM CDT Appointment [facility] [address] [place] [address], [address] [place] [phone] Shaggy Smith MD [address] [place], [place] [address]JUSTIN [place], [place] [phone] 10/13/2023 9:00 AM CDT Appointment [facility]-BUSINESS SEGMENT MANAGER [address] [place] [address] [phone] Maria Dolores Del Real APRN, ASSISTANT GUEST SERVICES MANAGER [address] [place] [address] Dr Gamez [place] [phone] documented as of this encounter Procedures Procedure Name Priority Date/Time Associated Diagnosis Comments TRICHOMONAS VAGINALIS, MOLECULAR DETECTION, ENDOCERVIX/VAGINA (14 YEARS AND OLDER) Routine 06/08/2023 3:29 PM CDT Routine screening for STI (sexually transmitted infection) documented in this encounter Results * Chlamydia & GC (14 Years and Older): Vagina (07/27/2023 11:24 AM CDT) Chlamydia Trachomatis STD Not Detected Not Detected 07/28/2023 12:12 PM CDT [facility] N. gonorrhoeae STD Not Detected Not Detected 07/28/2023 12:12 PM CDT [facility] Swab STD SPECIMEN FROM VAGINA / Unknown Non-blood Collection / Unknown 07/27/2023 11:24 AM CDT 07/27/2023 2:58 PM CDT Narrative [facility] - 07/28/2023 12:12 PM CDT Test performed by Shuttle Threader Mediated Amplification (TMA). Sofiya Vo MD LAB_1 Performing Organization Address City/State/[facility] Co de Phone Number [facility] [address] * US OB <14 Weeks w [...] Detected Not Detected 06/09/2023 12:23 PM CDT [facility] Swab STD SPECIMEN FROM VAGINA / Unknown Non-blood Collection / Unknown 06/08/2023 3:29 PM CDT 06/08/2023 4:32 PM CDT Narrative [facility] - 06/09/2023 12:23 PM CDT Test performed by Shuttle Threader Mediated Amplification (TMA). Sofiya Vo MD LAB_1 [facility] [address] documented in this encounter Visit Diagnoses Diagnosis Early stage of - Primary Routine screening for STI (sexually transmitted infection) Screening examination for venereal disease Bradycardic baseline heart rate Early stage of documented in this encounter Care Teams Jira Administrator Relationship Specialty [place] [address] [place] [address] PCP - General Family Practice 11/03/20 documented as of this encounter
--- OUTSIDE RECORDS SUMMARY | 2023-09-13 00:42 | XMS_ITS | Encounter Summary ---
Author Organization [employer] Address [address] [address] Care Team Providers Care Paving Contractor Name Role Phone Randal Joe MD Primary Care Provider [phone] Reason for Visit * Reason Comments STD Exposure Encounter Details Date Type Department Care Team (Late st Contact Info) Description 06/07/2023 Nurse Triage [facility]-SHEET COMBINING OPERATOR [address] [facility], [facility] [address] [place] [address] [place] [address] [facility] [address] [place] [address] STD Exposure Social History Tobacco [...] sexually transmitted infection (STI) Protocols used: STI Djfahnbw-MOSMM-EI Patient found out was unfaithful and possibly has STI. Would like to be tested for reassurance. Appointment scheduled. Problem list reviewed as related to this call. documented in this encounter Plan of Treatment Upcoming Encounters Date Type Department Care Team (Late st Contact Info) Description 09/14/2023 3:00 PM CDT Appointment [facility]-SHEET COMBINING OPERATOR [address] [place] [address] [phone] Miranda Metzger DO [address] [place] [address] [phone] 09/19/2023 10:00 AM CDT Appointment [facility] [address] [place] [address] [phone] Maria Dolores Del Real APRN, SANDBLASTING SUPERVISOR [address] [place] [address] [phone] 09/19/2023 11:00 AM CDT Appointment [facility] [address] [place] [address], [address] [phone] Shaggy Smith MD [address] [place] [address] [phone] 10/13/2023 9:00 AM CDT Appointment [facility]-SHEET COMBINING OPERATOR [address] [place] [address] [phone] Maria Dolores Del Real APRN, SANDBLASTING SUPERVISOR [address] [place] [address] [phone] documented as of this encounter Visit Diagnoses Not on filedocumented in this encounter Care Teams Paving Contractor Relationship Specialty [place] [address] [place] [address] PCP - General Family Practice 11/03/20 documented as of this encounter
--- OUTSIDE RECORDS SUMMARY | 2023-09-13 00:42 | XMS_ITS | Encounter Summary ---
Author Organization [facility] Address [address] [place] [address] Care Team Providers Care Wire Drawing Setter Name Role Phone Randal Joe MD Primary Care Provider [phone] Encounter Details Date Type Department Care Team (Late Contact Info) Description 06/24/2023 E[facility]Visit [facility]necology [address] [facility] [place], [place] [address] [place] [address] Social History Tobacco Use Types Packs/Day Years [...] Info) Description 09/14/2023 3:00 PM CDT Appointment [facility]-PORTABLE MACHINE SANDER [address] [facility] [address] [place] [phone] [place] [address] [place] Ismael Cuevas [place], [place] [phone] 09/19/2023 10:00 AM CDT Appointment [facility] [address] [place] [address] [phone] Maria Dolores Del Real, RUG INSPECTOR HELPER, MEDICAL LIBRARY ASSISTANT [address] [place] [address] Ismael Mason [place], [place] [phone] 09/19/2023 11:00 AM CDT Appointment [facility] [address] [place] [address] [phone] Shaggy Smith MD [address] [place] [address] [phone] 10/13/2023 9:00 AM CDT Appointment [facility]-PORTABLE MACHINE SANDER [address] [place] [address] [phone] Maria Dolores Del Real RUG INSPECTOR HELPER, MEDICAL LIBRARY ASSISTANT [address] [place] [address] [phone] documented as of this encounter Visit Diagnoses Not on filedocumented in this encounter Care Teams Wire Drawing Setter Relationship Specialty [place] [address] [place] [address] PCP - General Family Practice 11/03/20 documented as of this encounter
--- OUTSIDE RECORDS SUMMARY | 2023-09-13 00:42 | XMS_ITS | Encounter Summary ---
Author Organization [employer] Address [address] [address] Care Team Providers Care Global Marketing Operations Manager Name Role Phone Randal Joe MD Primary Care Provider [phone] Reason for Visit * Procedure/Equipment (Routine) - Incomplete Specialty Diagnoses / Procedures Referred By Contac t Referred To Contact Diagnoses Bleeding in early Procedures US OB <14 Weeks W EV Single US OB < 14 [place] [address] [address] [place] [address] Referral ID Status Reason Start Date Expiration Date V isits Requested Visits Authorized [id number] Incomplete 06/01/2023 08/30/2024 1 1 Encounter Details Date Type Department Care Team (Latest Contact Info) Description 06/08/2023 8:45 AM CDT Ancillary Procedure [facility]-Ultrasound [address] [facility], [address] [place] [address] [place] [address] [address] [place] [address] Bleeding in early Social History Tobacco [...] Info) Description 09/14/2023 3:00 PM CDT Appointment [facility]-SALES REPRESENTATIVE PRINTING SUPPLIES [address] [place] [address] [phone] Miranda [place]ger DO [address] [place] [address] Dr Gamez [place], [place] [phone] 09/19/2023 10:00 AM CDT Appointment [facility] [address] [place] [address] [phone] Maria Dolores Del Real, LEAD NUCLEAR MEDICINE TECHNOLOGIST, BLACKSMITH SUPERVISOR [address] [place] [address] Dr Gamez [place], [place] [phone] 09/19/2023 11:00 AM CDT Appointment [facility] [address] [place] [address], [address] [phone] Shaggy Smith MD [address] [place], [place] [address]JUST[place], [place] [phone] 10/13/2023 9:00 AM CDT Appointment [facility]-SALES REPRESENTATIVE PRINTING SUPPLIES [address] [place] [address] [phone] Maria Dolores Del Real LEAD NUCLEAR MEDICINE TECHNOLOGIST, BLACKSMITH SUPERVISOR [address] [place] [address] Dr Gamez [place], [place] [phone] documented as of this encounter Procedures Procedure [...] measuring 1.1 x 0.8 x 1.2 cm. [place]-rump length measures 0.4 cm, corresponding to 6w1d [...] hemorrhage measuring 1.1x 0.8 x 1.2 cm. [place]-rump length measures 0.4 cm, corresponding to 6w1d [...] date of confinement of01/31/2024. Sofiya Vo MD [facility] documented in this encounter Visit Diagnoses Diagnosis Bleeding in early Unspecified hemorrhage in early , unspecified as to episode of care documented in this encounter Care Teams Global Marketing Operations Manager Relationship Specialty [place] [address] [place] [address] PCP - General Family Practice 11/03/20 documented as of this encounter
--- OUTSIDE RECORDS SUMMARY | 2023-09-13 00:42 | XMS_ITS | Encounter Summary ---
Author Organization [employer] Address [address], [place] [address] Care Team Providers Care Water Regulator And Valve Repairer Name Role Phone Randal Joe MD Primary Care Provider [phone] Reason for Visit * Reason Comments Concerns Encounter Details Date Type Department Care Team (Late st Contact Info) Description 06/22/2023 Telephone [facility]-HEAD SUGAR REPROCESS OPERATOR 7[address]01 [facility] [address] [place] [address] [place] [address] [facility] [address] [place] [address] Concerns Social History Tobacco Use [...] dye. Reviewed information regarding hair dye in [place] Your guide to a heathy . Pg 26 Most evidence suggests that hair dyes and permanent wave solutions are safe. But hormones may change how these ingredients react with your hair. documented in this encounter Plan of Treatment Upcoming Encounters Date Type Department Care Team (Late st Contact Info) Description 09/14/2023 3:00 PM CDT Appointment [facility]-HEAD SUGAR REPROCESS OPERATOR [address] [place] [address], [address] [phone] [place] [address] Guevara [address] [place] [address] 815327 09/19/2023 10:00 AM CDT Appointment [facility] [address] [place] [address] [phone] Maria Dolores Del Real, BLACKJACK PIT BOSS, REFRACTORY SPECIALIST [address] Guevara [address] [place] [address] [phone] 09/19/2023 11:00 AM CDT Appointment [facility] [address] [place] [address], [address] [place] [phone] Shaggy Smith MD [address] [place] [address] [place] [address] [place], [place] [phone] 10/13/2023 9:00 AM CDT Appointment [facility]-HEAD SUGAR REPROCESS OPERATOR [address]72 [facility], [address] [place] [address] Maria Dolores Del Real APRN, REFRACTORY SPECIALIST [address] Ismael [address] [place] [address] documented as of this encounter Visit Diagnoses Not on filedocumented in this encounter Care Teams Water Regulator And Valve Repairer Relationship Specialty [place] [address] [place] [address] PCP - General Family Practice 11/03/20 documented as of this encounter
--- OUTSIDE RECORDS SUMMARY | 2023-09-13 00:42 | XMS_ITS | Encounter Summary ---
Author Organization [employer] Address [address] [address] Care Team Providers Care Ore Miner Blasting Name Role Phone Randal Joe MD Primary Care Provider [phone] Encounter Details Date Type Department Care Team (Late st Contact Info) Description 06/07/2023 5:30 PM CDT Lab Visit [facility] [address] [facility] [address] History of miscarriage Social History [...] Info) Description 09/14/2023 3:00 PM CDT Appointment [facility]-PHONOGRAPH MECHANIC 64[address] [facility], [address] [place] [address] [place] [address] [place] [address] [place] [address] 09/19/2023 10:00 AM CDT Appointment [facility] 17197 [facility], [address] [place] [phone] Maria Dolores Del Real APRN, GROUP WORKER [address] Guevara [address] [place], [place] 202667 09/19/2023 11:00 AM CDT Appointment [facility] 9855 [facility], [address] [place] [phone] Shaggy Smith MD [address] [place] [address] 275 [place], [place] [phone] 10/13/2023 9:00 AM CDT Appointment [facility]-PHONOGRAPH MECHANIC 40813 [facility], [facility] [address] [place] [phone] Maria Dolores Del Real APRN, GROUP WORKER [address] Guevara [address] [place] [address] [phone] documented as of this encounter Procedures Procedure Name Priority Date/Time Associated Diagnosis Comments HCG, QUANTITATIVE, SERUM STAT 06/07/2023 5:00 PM CDT History of miscarriage documented in this encounter Results * (ABNORMAL) HCG, Quantitative, Serum (06/07/2023 5:00 PM CDT) HCG, Quantitative 14,208(H) <=4 mIU/mL 06/07/2023 8:53 PM CDT [facility] Blood Venipuncture / Unknown 06/07/2023 5:00 PM CDT 06/07/2023 5:00 PM CDT Narrative [facility] - 06/07/2023 8:53 PM CDT Expected ranges Negative: <5 mIU/mL Indeterminate: 5-25 mIU/mL Positive: >25 mIU/mL Suggest repeat testing of indeterminate result in 72 hours. Michaela Lopez MD LAB_1 [facility] [address] documented in this encounter Visit Diagnoses Diagnosis History of miscarriage Personal history of other genital system and obstetric disorders documented in this encounter Care Teams Ore Miner Blasting Relationship Specialty [place] [address] [place] [address] PCP - General Family Practice 11/03/20 documented as of this encounter
--- OUTSIDE RECORDS SUMMARY | 2023-09-13 00:42 | XMS_ITS | Encounter Summary ---
Author Organization [employer] Address [address] [address] Care Team Providers Care Director Of Marketing Name Role Phone Randal Joe MD Primary Care Provider [phone] Reason for Referral * Consult/Transfer Care (Routine) - New Request Specialty Diagnoses / Procedures Referred By Contac t Referred To Contact Diagnoses Anxiety (HRC) [place] [address] [address] Referral ID Status Reason Start Date Expiration Date V isits Requested Visits Authorized [id number] New Request 06/03/2023 09/01/2024 1 1 Scheduling Instructions Your clinician has recommended an appointment with Behavioral Health. You may call [phone] to schedule your appointment. This recommended service/s [...] Description 06/01/2023 Nurse Triage [facility] [address] [place] [address] [place] [address] [place] [address] Concerns; ANXIETY Social History Tobacco [...] or work) Protocols used: Anxiety and Panic [id number] Problem list reviewed as related to this call. documented in this encounter Plan of Treatment Upcoming Encounters Date Type Department Care Team (Late st Contact Info) Description 09/14/2023 3:00 PM CDT Appointment [facility]-BORING MACHINE OPERATOR 5[address]84 [facility] [place], [address] [phone] [place] [address] Guevara [address] [place] [address] 09/19/2023 10:00 AM CDT Appointment [facility] [address] [phone] Maria Dolores Del Real, REMOVABLE PROSTHODONTIST, CENTRAL SUPPLY CLERK [address] Guevara [address] [place] [address] 09/19/2023 11:00 AM CDT Appointment [facility] [address] [place] [address], [address] [place] [phone] Shaggy Smith MD [address] [place] [address] [place] [address] [place] [address] 10/13/2023 9:00 AM CDT Appointment [facility]-BORING MACHINE OPERATOR [address]3652 [facility] [place], [address] [place] [address] Maria Dolores Del Real REMOVABLE PROSTHODONTIST, CENTRAL SUPPLY CLERK [address] [address]ma[address] [place], [place] [phone] Scheduled Referrals Name Type Priority Associated Diagnoses Orde r Schedule Behavioral Health Adult/Peds Referral Routine Anxiety (HRC) Ordered: 06/03/2023 documented as of this encounter Visit Diagnoses Diagnosis Anxiety (HRC)- Primary Anxiety state, unspecified documented in this encounter Care Teams Director Of Marketing Relationship Specialty [place] [address] [place] [address] PCP - General Family Practice 11/03/20 documented as of this encounter
--- OUTSIDE RECORDS SUMMARY | 2023-09-13 00:42 | XMS_ITS | Encounter Summary ---
Author Organization [facility] Address [address] [place] [address] Care Team Providers Care Foreign Collection Clerk Name Role Phone Randal Joe MD Primary Care Provider [phone] Encounter Details Date Type Department Care Team (Late st Contact Info) Description 06/15/2023 E-Visit [facility]-SUSTAINABILITY PROJECT MANAGER [address] [place] [address] [place] [address] Social History Tobacco Use Types Packs/Day Years [...] Info) Description 09/14/2023 3:00 PM CDT Appointment [facility]-SUSTAINABILITY PROJECT MANAGER 29763 [facility], [facility] [address] [place] [address] [place] [address] [place], [place] [address] 09/19/2023 10:00 AM CDT Appointment [facility] [address] [place] [address] 420 [place] [phone] Maria Dolores Del Real APRN, NETWORK INTELLIGENCE ANALYST [address] Guevara [place], [place] 051057 09/19/2023 11:00 AM CDT Appointment [facility] [address] [place] [address] [phone] Shaggy Smith MD [address] [place] [address] 956339 10/13/2023 9:00 AM CDT Appointment [facility]-SUSTAINABILITY PROJECT MANAGER [address] [place] [address] [phone] Maria Dolores Del Real, KATELYN, NETWORK INTELLIGENCE ANALYST [address] Guevara [place], [place] 829247 documented as of this encounter Visit Diagnoses Not on filedocumented in this encounter Care Teams Foreign Collection Clerk Relationship Specialty [place] [address] [place] [address] PCP - General Family Practice 11/03/20 documented as of this encounter
--- OUTSIDE RECORDS SUMMARY | 2023-09-13 00:42 | XMS_ITS | Encounter Summary ---
Author Organization [employer] Address [address], [place] [address] Care Team Providers Care Wigs Salesperson Name Role Phone Randal Joe MD Primary Care Provider [phone] Encounter Details Date Type Department Care Team (Late st Contact Info) Description 06/10/2023 5:30 PM CDT Lab Visit [facility] [address] [facility] [place] [address] History of miscarriage Social History [...] Info) Description 09/14/2023 3:00 PM CDT Appointment [facility]-YARN MERCERIZER OPERATOR 87345 [facility], [address] [place] [address] [place] [address] [place] [address]ma[address] [place] [address] 09/19/2023 10:00 AM CDT Appointment [facility] [address] [facility], [address] [place] [phone] Maria Dolores Del Real APRN, FLOOR INSTALLER [address] Guevar[address] [place], [place] 042417 09/19/2023 11:00 AM CDT Appointment [facility] 9855 [facility], [address] [place] [phone] Shaggy Smith MD [address] [place] [address] 275 [facility] [place] [phone] 10/13/2023 9:00 AM CDT Appointment [facility]-YARN MERCERIZER OPERATOR 90855 [facility], [facility] 420 [place] [phone] Maria Dolores Del Real APRN, FLOOR INSTALLER [address] Guevara [address] [place] [address] [phone] documented as of this encounter Procedures Procedure Name Priority Date/Time Associated Diagnosis Comments HCG, QUANTITATIVE, SERUM STAT 06/10/2023 5:28 PM CDT History of miscarriage documented in this encounter Results * (ABNORMAL) HCG, Quantitative, Serum (06/10/2023 5:28 PM CDT) HCG, Quantitative 12,892(H) <=4 mIU/mL 06/10/2023 9:36 PM CDT [facility] Blood Venipuncture / Unknown 06/10/2023 5:28 PM CDT 06/10/2023 5:28 PM CDT Narrative [facility] - 06/10/2023 9:36 PM CDT Expected ranges Negative: <5 mIU/mL Indeterminate: 5-25 mIU/mL Positive: >25 mIU/mL Suggest repeat testing of indeterminate result in 72 hours. Michaela Lopez MD LAB_1 [facility] [address] documented in this encounter Visit Diagnoses Diagnosis History of miscarriage Personal history of other genital system and obstetric disorders documented in this encounter Care Teams Wigs Salesperson Relationship Specialty [place] [address] [place] [address] PCP - General Family Practice 11/03/20 documented as of this encounter
--- OUTSIDE RECORDS SUMMARY | 2023-09-13 00:42 | XMS_ITS | Encounter Summary ---
Author Organization [employer] Address [address], [place] [address] Care Team Providers Care Agricultural Technical Officer Name Role Phone Randal Joe MD Primary Care Provider [phone] Reason for Visit * Reason Comments Ultrasound Results Encounter Details Date Type Department Care Team (Late st Contact Info) Description 06/22/2023 Telephone [facility]-STAIN APPLICATOR [address] [address] [place] [address] [facility] [address] [place] [address] Ultrasound Results Social History Tobacco [...] Info) Description 09/14/2023 3:00 PM CDT Appointment [facility]-STAIN APPLICATOR [address] [place] [address], [address] [address] [place] [address] Guevara [address] [place] [address] [phone] 09/19/2023 10:00 AM CDT Appointment [facility] [address] [place] [address], [address] [phone] Maria Dolores Del Real APRN, PHONE CIRCUIT OPERATOR [address] Guevara [address] [place] [address] [phone] 09/19/2023 11:00 AM CDT Appointment [facility] 9855 [facility], [address] [place] [address]349376 Shaggy Smith MD [address] [place] [address] Dr Guevara [address] [place] [address]349 10/13/2023 9:00 AM CDT Appointment [facility]-STAIN APPLICATOR 34145 [facility], [address] [place] [phone] Maria Dolores Del Real APRN, PHONE CIRCUIT OPERATOR [address] Guevara [address] [place] [phone] documented as of this encounter Visit Diagnoses Not on filedocumented in this encounter Care Teams Agricultural Technical Officer Relationship Specialty [place] [address] [place] [address] PCP - General Family Practice 11/03/20 documented as of this encounter
--- OUTSIDE RECORDS SUMMARY | 2023-09-13 00:42 | XMS_ITS | Encounter Summary ---
Author Organization [facility] Address [address], [place] [address] Care Team Providers Care Canoe Inspector Name Role Phone Randal Joe MD Primary Care Provider [phone] Encounter Details Date Type Department Care Team [...] Info) Description 09/14/2023 3:00 PM CDT Appointment [facility]-BASKET PATCHER 98277 [facility], [address] [place] [address] [place] [address] Gue[address]a [address] [place], [place] 141677 09/19/2023 10:00 AM CDT Appointment [facility] 85386 [facility], [address] [place] [phone] Maria Dolores Del Real APRN, SUPERVISOR CAP AND HAT PRODUCTION [address] Guevar[address] [place] [address] 09/19/2023 11:00 AM CDT Appointment [facility] [address] [place] [address], [address] [place] [phone] Shaggy Smith MD [address] [place] [address] 275 [facility] [place] [address] 10/13/2023 9:00 AM CDT Appointment [facility]-BASKET PATCHER 49863 [facility], [facility] 420 [place] [phone] Maria Dolores Del Real, KATELYN, SUPERVISOR CAP AND HAT PRODUCTION [address] [place] [address] documented as of this encounter Visit Diagnoses Not on filedocumented in this encounter Additional Health Concerns Infection Onset Date Last Indicated Resolved Time R/O COVID19 08/29/2019 08/29/2019 09/05/2019 3:17 AM CDT R/O COVID19 01/21/2020 01/21/2020 01/23/2020 1:47 AM OCCUPATIONAL SAFETY AND HEALTH MANAGER R/O COVID19 12/09/2020 12/09/2020 12/10/2020 1:38 PM CDT documented as of this encounter Care Teams Canoe Inspector Relationship Specialty [place] [address] [place] [address] PCP - General Family Practice 11/03/20 documented as of this encounter
--- OUTSIDE RECORDS SUMMARY | 2023-09-13 00:42 | XMS_ITS | Encounter Summary ---
Author Organization [employer] Address [address], [place] [address] Care Team Providers Care Back Office Medical Assistant Name Role Phone Randal Joe MD Primary Care Provider [phone] Reason for Visit * Reason Comments LAB RESULTS Encounter Details Date Type Department Care Team (Late st Contact Info) Description 06/11/2023 Telephone [facility] [address] [place] [address] [place] [address] [place], [place] [phone] LAB RESULTS Social History Tobacco Use Types [...] Info) Description 09/14/2023 3:00 PM CDT Appointment [facility]-VICE PRESIDENT FOR PHILANTHROPY [address] [place] [address] [phone] Miranda [place]ger [place] [address] [place] [address] Dr [address] [place] [address] 325447 09/19/2023 10:00 AM CDT Appointment [facility] [address] [place] [phone] Maria Dolores Del Real, CORPORATE REAL ESTATE MANAGER, HAND III CUTTER [address] [place] [address] Dr [place] [phone] 09/19/2023 11:00 AM CDT Appointment [facility] [address] [place] [address] [phone] Shaggy Smith MD [address] [place] [address] [address] [place], [place] [address] 10/13/2023 9:00 AM CDT Appointment [facility]-VICE PRESIDENT FOR PHILANTHROPY [address] [place] [address] [phone] Maria Dolores Del Rael, CORPORATE REAL ESTATE MANAGER, HAND III CUTTER [address] [place] [address] Dr [address] [place], [place] 659927 documented as of this encounter Visit Diagnoses Not on filedocumented in this encounter Care Teams Back Office Medical Assistant Relationship Specialty [place] [address] [place] [address] PCP - General Family Practice 11/03/20 documented as of this encounter
--- OUTSIDE RECORDS SUMMARY | 2023-09-13 00:42 | XMS_ITS | Encounter Summary ---
Author Organization [facility] Address [address] [place] [address] Care Team Providers Care Master Certified Rv Technician Name Role Phone Randal Joe MD Primary Care Provider [phone] Encounter Details Date Type Department Care Team (Late st Contact Info) Description 06/13/2023 E-Visit [facility]-BEAMSTER [address] [place] [address], [address] [address] [place] [address] Social History Tobacco Use Types Packs/Day Years [...] Info) Description 09/14/2023 3:00 PM CDT Appointment [facility]-BEAMSTER 68785 [facility], [address] [place] [address] [place] [address] [address] 09/19/2023 10:00 AM CDT Appointment [facility] 53894 [facility], [address] [place] [phone] Maria Dolores Del Real APRN, FURNITURE MECHANIC [address] Guevara [address] [place] [address] [phone] 09/19/2023 11:00 AM CDT Appointment [facility] [address] [place] [address], [address] [place] [phone] Shaggy Smith MD [address] [place] [address] 275 [place], [place] [phone] 10/13/2023 9:00 AM CDT Appointment [facility]-BEAMSTER [address] [facility], [facility] 420 [place] [phone] Maria Dolores Del Real BALANCER, FURNITURE MECHANIC [address] [place] [address] [phone] documented as of this encounter Visit Diagnoses Not on filedocumented in this encounter Care Teams Master Certified Rv Technician Relationship Specialty [place] [address] [place] [address] PCP - General Family Practice 11/03/20 documented as of this encounter
--- OUTSIDE RECORDS SUMMARY | 2023-09-13 00:42 | XMS_ITS | Encounter Summary ---
Author Organization [employer] Address [address], [place] [address] Care Team Providers Care Dress Draper Name Role Phone Randal Joe MD Primary Care Provider [phone] Reason for Visit * Reason Comments Concerns Encounter Details Date Type Department Care Team (Late st Contact Info) Description 06/25/2023 Nurse Triage [facility] [address] [place], [place] [phone] [place] [address] [place], [place] [phone] Concerns Social History Tobacco Use Types Packs/Day [...] - Vaginal Bleeding Less Than 20 Weeks [id number] Patient calling. States she is 7 weeks [...] Info) Description 09/14/2023 3:00 PM CDT Appointment [facility]-PILE FABRIC KNITTER [address] [place] [phone] [place] [address] [place] [address] [address] 09/19/2023 10:00 AM CDT Appointment [facility] [address] [place] [address] [phone] Maria Dolores Del Real APRN, MESSENGER OFFICE [address] [place] [address] [phone] 09/19/2023 11:00 AM CDT Appointment [facility] [address] [place] [address] [phone] Shaggy Smith MD [address] [place], [place] [address]JUSTIN [place], [place] [phone] 10/13/2023 9:00 AM CDT Appointment [facility]-PILE FABRIC KNITTER [address] [place] [address] [phone] Maria Dolores Del Real APRN, MESSENGER OFFICE [address] [place] [address] documented as of this encounter Visit Diagnoses Not on filedocumented in this encounter Care Teams Dress Draper Relationship Specialty [place] [address] [place] [address] PCP - General Family Practice 11/03/20 documented as of this encounter
== END 2023-09-12 08:38 | disposition home or self-care (01) ==
LOC: AMB 09-13 00:32
PROVIDERS: Visit Provider Student in an Organized Health Care Education/Training Program
DX: O21.8 Other vomiting complicating pregnancy (principal); Z3A.19 19 weeks gestation of pregnancy
CPT/HCPCS: A0425; A0429

== ENCOUNTER 2024-02-03 11:24 | Outpatient (CLI) | payer OTHER, SELFPAY ==
[2024-02-03 11:49] VITALS: BP 108/63; PULSE 60; RESP 18; TEMP 36.8
--- NOTE | 2024-02-03 13:14 | PC.OBNST ---
NST Note NST Note Start: 02/03/24 13:08 Freq: Status: Active Protocol: Document 02/03/24 13:00 ALZ (Rec: 02/03/24 13:11 ALZ Desktop) NST Note 3 Para (# of births) 2 EDC 02/04/24 Gestational Age In Weeks & Days 39 Weeks & 6 Days Patient Presented with Complaint(s) of Contractions/cramping,Vaginal bleeding,Decreased movement Reactive Yes Appropriate for Gestational Age Yes JOSUÉ Campos Date 02/03/24 Reactive Yes Appropriate for Gestational Age Yes JOSUÉ Velez Date 02/03/24 OB NST charge Yes Complete NST Note via Write Note Yes The provider's electronic signature indicates the NST is reactive/appropriate for gestational age. *Note to provider: If an addendum is required, open the patient's chart and click on the note under the Nurse/Allied Health tab.
== END 2024-02-03 13:07 | disposition home or self-care (01) ==
LOC: OB OUT 11:24 → OB 11:26
PROVIDERS: Visit Provider Family Medicine
DX: O47.1 False labor at or after 37 completed weeks of gestation (principal); Z3A.39 39 weeks gestation of pregnancy
CPT/HCPCS: 59025; G0463